=== PATIENT | male | born 1950 | race Caucasian/White ===

== ENCOUNTER → 2016-04-17 | Outpatient (CLI) | payer OTHER, MEDICARE, BC ==
[2016-04-17 10:39] LABS: Blood Urea Nitrogen 16 mg/dL (9-20); Non-African American GFR(MDRD) >60 (>60 ml/min/1.73 sqM)
--- NOTE | 2016-04-17 11:54 | CT ---
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 TECHNIQUE: Contiguous axial scanning of the chest, abdomen, and pelvis performed with IV Contrast, pa tient injected with 100 mL of Omnipaque 300. Delayed images through the kidneys were obtained. Graham l/sagittal reconstructions performed. CT DLP: 1949 mGycm Automated exposure control for dose reduction was used. FINDINGS: CHEST: Left anterior chest wall injection port with catheter tip at the caval atrial junction. Heart is normal size without pericardial effusion. Aorta is normal caliber with conventional arch vessel branching anatomy. No thoracic lymphadenopathy. Evaluation of the lungs show some chronic scarring at the left lung base without consolidation or ple ural effusion. Chronic pleural based thickening along the posterolateral left costophrenic angle with an adjacent surgical clip in the sulcus. ABDOMEN: Subtle subcentimeter hypodense lesion peripheral right liver lobe, axial image 55 appears to be uncha nged. However, a second subtle 1.4 cm hypodense lesion segment 6 right liver lobe axial image 58 may be lar jose eduardo. Portal venous system is patent. Redemonstrated pneumobilia with a metallic stent in place. Numerous surgical clips are present along the retroperitoneum extending down the left iliac chain and causes extensive artifacts limiting the evaluation. Within this limitation, the right adrenal gland, spleen with a anterior splenule, pancreas show no gr oss abnormality. Left adrenal gland not well seen. Redemonstrated 1.1 cm hypodense lesion anterior lower pole left kid rodney, probable cyst. Left kidney with an extrarenal pelvis. No dilated small bowel, free fluid, or free air. There is moderate stool burden without pericolonic i nflammatory change. There is new upper abdominal and retroperitoneal lymphadenopathy. - Peripancreatic lymph nodes measure 1.4 cm, axial image 61, just below the pancreatic body - 1.8 cm just medial to the uncinate process axial image 66, - Pericaval lymph node at 1.4 cm, axial image 78, - upper left para-aortic, 1.3 cm, axial image 62, - in addition to additional central mesenteric lymph nodes measure up to 1.1 cm, axial image 69 and 1 .1 cm axial image 73. -Additional subcentimeter mesenteric lymph nodes are present and are also new from prior exam. Pelvis: Mild circumferential bladder wall thickening. Similar prostatomegaly and 4.3 cm wide with heterogeneo us central enhancement which is unchanged. Rectum appears normal. No abnormal fluid collection in the pelvis or pelvic lymphadenopathy seen. Bones: Mild degenerative changes at the hips. Additional degenerative changes at the right SI joint and lowe r lumbar spine with a left L5 pars defect. Endplate spondylosis mid to lower thoracic spine. No osseo us destructive process. IMPRESSION: 1. FINDINGS COMPATIBLE WITH DISEASE RECURRENCE WITH NEW PERIPANCREATIC, RETROPERITONEAL, AND MESENTER IC LYMPHADENOPATHY MEASURING UP TO 1.8 CM, 1.4 CM, AND 1.1 CM, RESPECTIVELY. 2. A 1.4 CM HYPODENSE LESION INFERIOR RIGHT HEPATIC LOBE ALSO APPEARS NEW AND SUGGESTS METASTATIC DIS EASE. ANOTHER SUBCENTIMETER LESION IN THE RIGHT HEPATIC LOBE IS UNCHANGED. 3. METALLIC BILIARY STENT REMAINS IN PLACE WITH PNEUMOBILIA.
== END | disposition home or self-care (01) ==
LOC: RADPROMAIN 09:58
PROVIDERS: ATTEND Internal Medicine Hematology & Oncology
DX: K76.9 Liver disease, unspecified (principal)
CPT/HCPCS: 82565; 84520; 71260; 74177; Q9967

== ENCOUNTER 2016-05-23 18:19 | Inpatient (IN) | payer OTHER, MEDICARE, BC ==
[2016-05-23] MEDS ORDERED: SODIUM CHLORIDE 0.9% 1,000 ML IV STA ×2 (18:31)
--- NOTE | 2016-05-23 18:35 | ED ---
Fever HPI - General Chief Complaint: Fever Stated Complaint: FEVER, CANCER PATIENT Time Seen by Provider: 05/23/16 18:26 Source: patient, family, RN notes reviewed Mode of arrival: wheelchair Limitations: no limitations - History of Present Illness Initial Comments: This is a 65-year-old male with a history of testicular cancer history of sepsis in the past with a stent placement in the past who has sudden onset of chills shaking and a fever that got as high as 103.7 back. This started this afternoon around 4 PM. He is had a runny nose slight cough denies any earache sore throat dysuria hematuria his last chemotherapy was about 12 days ago. He has no other complaints at this time. No nausea no vomiting no diarrhea he does get bloating from his chemotherapy but denies any abdominal distention any at this time he does have some epigastric discomfort. MD Complaint: fever - Related Data Home Medications Medication Instructions Recorded Confirmed Docusate [Colace] 100 mg PO BID 11/19/15 05/23/16 Gabapentin [Gabapentin] 100 mg PO BID 11/19/15 05/23/16 Ibuprofen [Motrin] 800 mg PO Q8H PRN 11/19/15 05/23/16 Levothyroxine Sodium [Synthroid] 88 mcg PO DAILY 11/19/15 05/23/16 Loratadine [Claritin] 10 mg PO DAILY 11/19/15 05/23/16 Omeprazole 40 mg PO DAILY 11/19/15 05/23/16 Baclofen [Lioresal] 10 mg PO BID PRN 05/23/16 05/23/16 Calcium Carb/Vitamin D3/Vit K1 2 tab PO DAILY 05/23/16 05/23/16 [Viactiv Soft Chew Tablet] Fluticasone Nasal [place] [Flonase 2 spray EA NOSTRIL DAILY PRN 05/23/16 05/23/16 Nasal [place]] Lidocaine-Prilocaine Cream [[place]mla 1 applic TOPICAL DAILY PRN 05/23/16 05/23/16 Cream 2.5%/2.5%] Mag Carb/Al Hydrox/Alginic AC 10 ml PO QID PRN 05/23/16 05/23/16 [Gaviscon Liquid] Multivitamins, Thera [Multivitamin 1 tab PO DAILY 05/23/16 05/23/16 (formulary)] Prochlorperazine [Compazine] 10 mg PO Q6H PRN 05/23/16 05/23/16 Simethicone [Gas-X] 125 mg PO TID PRN 05/23/16 05/23/16 Allergies Allergy/AdvReac Type Severity Reaction Status Date / Time No Known Allergies Allergy Verified 05/23/16 18:24 Review of Systems ROS Statement: Those systems with pertinent positive or pertinent negative responses have been documented in the HPI. ROS Other: All systems not noted in ROS Statement are negative. Past Medical History Past Medical History: Cancer, Thyroid Disorder Additional Past Medical History / Comment(s): TESTICULAR CA 1979, pancreatic ca diagnosed February 2015 History of Any Multi-Drug Resistant Organisms: None Reported Past Surgical History: Hernia Repair, Tonsillectomy Additional Past Surgical History / Comment(s): 1979 LT TESTICLE AND LYMPHNODES REMOVED ALONG SPINE,RT ING HERNIA REPAIR X 3 WITH MESH,HEMORRHOIDECT, COLONOSCOPY titanum stent in pancreas Past Anesthesia/Blood Transfusion Reactions: No Reported Reaction Past Psychological History: No Psychological Hx Reported Smoking Status: Never smoker Past Alcohol Use History: None Reported Past Drug Use History: None Reported Additional Drug Use History / Comment(s): Patient states he has had a lifelong nonsmoker. 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 He lives at home with his and son. There is a cat in the home. No recent travel or service. - Past Family History Mother Family Medical History: Cancer Sister(s) Family Medical History: Cancer Brother(s) Family Medical History: Cancer Father Family Medical History: Cancer General Exam - General Exam Comments Initial Comments: This is a well-developed well-nourished awake alert oriented 3 male Limitations: no limitations General appearance: alert, in no apparent distress Head exam: Present: atraumatic, normocephalic, normal inspection Eye exam: Present: normal appearance, PERRL, EOMI. Absent: scleral icterus, conjunctival injection, periorbital swelling ENT exam: Present: normal exam, mucous membranes moist Neck exam: Present: normal inspection. Absent: tenderness, meningismus, lymphadenopathy Respiratory exam: Present: normal lung sounds bilaterally. Absent: respiratory distress, wheezes, rales, rhonchi, stridor Cardiovascular Exam: Present: normal rhythm, tachycardia, normal heart sounds. Absent: systolic murmur, diastolic murmur, rubs, gallop, clicks GI/Abdominal exam: Present: soft, normal bowel sounds. Absent: distended, tenderness, guarding, rebound, rigid Extremities exam: Present: normal inspection, full ROM, normal capillary refill. Absent: tenderness, pedal edema, joint swelling, calf tenderness Back exam: Present: normal inspection Neurological exam: Present: alert, oriented X3, CN II-XII intact Psychiatric exam: Present: normal affect, normal mood Skin exam: Present: warm, dry, intact, normal color. Absent: rash Course Vital Signs 05/23/16 05/23/16 18:20 20:34 Temperature 100.0 F H 101.8 F H Pulse Rate 134 H 111 H Respiratory 18 16 Rate Blood Pressure 139/77 115/68 O2 Sat by Pulse 97 96 Oximetry Medical Decision Making - Medical Decision Making Patient remains febrile but no other symptoms. I did discuss the case with oncology and with the hospitalist patient will be admitted started on cefepime continue with hydration. - Lab Data Result diagrams: 05/23/16 19:00 05/23/16 19:00 Lab Results 05/23/16 05/23/16 05/23/16 Range/Units 19:00 19:00 19:00 WBC 6.8 (3.8-10.6) k/uL RBC 3.71 L (4.30-5.90) m/uL Hgb 10.8 L (13.0-17.5) gm/dL Hct 33.1 L (39.0-53.0) % MCV 89.2 (80.0-100.0) fL MCH 29.2 (25.0-35.0) pg MCHC 32.7 (31.0-37.0) g/dL RDW 18.8 H (11.5-15.5) % Plt Count 214 (150-450) k/uL Neutrophils % 80 % Lymphocytes % 7 % Monocytes % 10 % Eosinophils % 1 % Basophils % 0 % Neutrophils # 5.4 (1.3-7.7) k/uL Lymphocytes # 0.4 L (1.0-4.8) k/uL Monocytes # 0.7 (0-1.0) k/uL Eosinophils # 0.0 (0-0.7) k/uL Basophils # 0.0 (0-0.2) k/uL Anisocytosis Slight Sodium 136 L (137-145) mmol/L Potassium 4.1 (3.5-5.1) mmol/L Chloride 102 (98-107) mmol/L Carbon Dioxide 23 (22-30) mmol/L Anion Gap 11 mmol/L BUN 18 (9-20) mg/dL Creatinine 0.91 (0.66-1.25) mg/dL Est GFR (MDRD) Af Amer >60 (>60 ml/min/1.73 sqM) Est GFR (MDRD) Non-Af >60 (>60 ml/min/1.73 sqM) Glucose 121 H (74-99) mg/dL Plasma Lactic Acid Paddy (0.7-2.0) mmol/L Calcium 9.0 (8.4-10.2) mg/dL Magnesium 1.6 (1.6-2.3) mg/dL Total Bilirubin 0.7 (0.2-1.3) mg/dL AST 155 H (17-59) U/L ALT 132 H (21-72) U/L Alkaline Phosphatase 131 H (38-126) U/L Total Protein 6.3 (6.3-8.2) g/dL Albumin 3.4 L (3.5-5.0) g/dL Amylase 61 (30-110) U/L Lipase 121 (23-300) U/L Urine Color Urine Appearance (Clear) Urine pH (5.0-8.0) Ur Specific [place] (1.001-1.035) Urine Protein (Negative) Urine Glucose (UA) (Negative) Urine Ketones (Negative) Urine Blood (Negative) Urine Nitrite (Negative) Urine Bilirubin (Negative) Urine Urobilinogen (<2.0) mg/dL Ur Leukocyte Esterase (Negative) Influenza Type A RNA Not Detected (Not Detectd) Influenza Type B (PCR) Not Detected (Not Detectd) 05/23/16 05/23/16 Range/Units 19:00 19:58 WBC (3.8-10.6) k/uL RBC (4.30-5.90) m/uL Hgb (13.0-17.5) gm/dL Hct (39.0-53.0) % MCV (80.0-100.0) fL MCH (25.0-35.0) pg MCHC (31.0-37.0) g/dL RDW (11.5-15.5) % Plt Count (150-450) k/uL Neutrophils % % Lymphocytes % % Monocytes % % Eosinophils % % Basophils % % Neutrophils # (1.3-7.7) k/uL Lymphocytes # (1.0-4.8) k/uL Monocytes # (0-1.0) k/uL Eosinophils # (0-0.7) k/uL Basophils # (0-0.2) k/uL Anisocytosis Sodium (137-145) mmol/L Potassium (3.5-5.1) mmol/L Chloride (98-107) mmol/L Carbon Dioxide (22-30) mmol/L Anion Gap mmol/L BUN (9-20) mg/dL Creatinine (0.66-1.25) mg/dL Est GFR (MDRD) Af Amer (>60 ml/min/1.73 sqM) Est GFR (MDRD) Non-Af (>60 ml/min/1.73 sqM) Glucose (74-99) mg/dL Plasma Lactic Acid Paddy 1.5 (0.7-2.0) mmol/L Calcium (8.4-10.2) mg/dL Magnesium (1.6-2.3) mg/dL Total Bilirubin (0.2-1.3) mg/dL AST (17-59) U/L ALT (21-72) U/L Alkaline Phosphatase (38-126) U/L Total Protein (6.3-8.2) g/dL Albumin (3.5-5.0) g/dL Amylase (30-110) U/L Lipase (23-300) U/L Urine Color Yellow Urine Appearance Clear (Clear) Urine pH 6.0 (5.0-8.0) Ur Specific [place] 1.011 (1.001-1.035) Urine Protein Negative (Negative) Urine Glucose (UA) Negative (Negative) Urine Ketones Negative (Negative) Urine Blood Negative (Negative) Urine Nitrite Negative (Negative) Urine Bilirubin Negative (Negative) Urine Urobilinogen <2.0 (<2.0) mg/dL Ur Leukocyte Esterase Negative (Negative) Influenza Type A RNA (Not Detectd) Influenza Type B (PCR) (Not Detectd) - EKG Data -: EKG Interpreted by Wy EKG shows normal: sinus rhythm (Sinus tachycardia rate 121 MA interval 146 QRS duration 84 daily since QTC of 300/426 moderate voltage criteria for LVH no acute ST-T wave changes) - Radiology Data Radiology results: report reviewed (I did review the x-ray report no acute findings.), image reviewed Disposition Clinical Impression: Fever, Sinusitis, Status post chemotherapy, time since less than 4 weeks Disposition: ADMITTED IP TO THIS HOSP Condition: Stable
[2016-05-23 19:20] LABS: ALT 132 U/L (21-72); AST 155 U/L (17-59); Alkaline Phosphatase 131 U/L (38-126); Amylase 61 U/L (30-110); Anion Gap 11 mmol/L; Blood Urea Nitrogen 18 mg/dL (9-20); Carbon Dioxide 23 mmol/L (22-30); Chloride 102 mmol/L (98-107); Glucose 121 mg/dL (74-99); Magnesium 1.6 mg/dL (1.6-2.3); Non-African American GFR(MDRD) >60 (>60 ml/min/1.73 sqM); Potassium 4.1 mmol/L (3.5-5.1); Sodium 136 mmol/L (137-145); Total Bilirubin 0.7 mg/dL (0.2-1.3); Total Protein 6.3 g/dL (6.3-8.2)
[2016-05-23 19:21] LABS: Anisocytosis Slight; Basophils % (A) 0 %; CHCM 32.7; Eosinophils % (A) 1 %; HCT 33.1 % (39.0-53.0); HDW 2.59; HGB 10.8 gm/dL (13.0-17.5); Luc % (Auto) 3; Lymphocytes # (A) 0.4 k/uL (1.0-4.8); Lymphocytes % (A) 7 %; MCH 29.2 pg (25.0-35.0); MCHC 32.7 g/dL (31.0-37.0); MCV 89.2 fL (80.0-100.0); Mean Platelet Volume 6.4; Monocytes # (A) 0.7 k/uL (0-1.0); Monocytes % (A) 10 %; Neutrophils # (A) 5.4 k/uL (1.3-7.7); Neutrophils % (A) 80 %; RBC 3.71 m/uL (4.30-5.90); RDW 18.8 % (11.5-15.5); WBC 6.8 k/uL (3.8-10.6); WBC (Perox) 6.89
--- NOTE | 2016-05-23 19:28 | XR ---
EXAMINATION TYPE: XR abdomen 1V DATE OF EXAM: 05/23/2016 7:19 PM COMPARISON: 04/17/2016. HISTORY: Cough, fever, and constipation. History of stage IV pancreatic cancer. TECHNIQUE: Single upright abdominal radiograph was obtained. FINDINGS: There is a moderate colonic stool burden in nondistended bowel in this patient with a histo ry of constipation. Numerous surgical clips overlie the central and left paracentral abdomen. Biliary stent has been placed in the interim. Previously described pneumobilia on the prior CT is not visual ized on this examination. Osseous structures are of normal mineralization with degenerative changes o f the lumbosacral spine. IMPRESSION: 1. Moderate colonic stool burden in this patient with a history of constipation. 2. New biliary stent, placed in the interim with other stable postsurgical changes.
--- NOTE | 2016-05-23 19:29 | XR ---
EXAMINATION TYPE: XR chest 2V DATE OF EXAM: 05/23/2016 7:19 PM COMPARISON: 11/19/2015 HISTORY: Cough and fever. TECHNIQUE: Frontal and lateral views of the chest are obtained. FINDINGS: Left hemidiaphragm elevation is similar in comparison to the prior exam. Left Mediport ter minates in the superior vena cava/right atrial junction. Numerous surgical clips are partially visual ized over the central and left paracentral abdomen. There is no focal air space opacity, pleural effu brittani, or pneumothorax seen. The cardiac silhouette size is within normal limits. The osseous struc tures are intact. IMPRESSION: 1. No focal consolidation. 2. Chronic left hemidiaphragm elevation. 3. Left Mediport is unchanged with its distal tip in the superior vena cava/right atrial junction, pr operly placed.
[2016-05-23 20:26] LABS: Appearance,Urine Clear (Clear); Bilirubin,Urine Negative (Negative); Glucose,Urine (UA) Negative (Negative); Ketones,Urine Negative (Negative); Leukocyte Esterase,Urine Negative (Negative); Nitrite,Urine Negative (Negative); Protein,Urine Negative (Negative); Specific Gravity,Urine 1.011 (1.001-1.035); UA Billing (MACRO vs. MICRO) CHEM; Urobilinogen,Urine <2.0 mg/dL (<2.0)
[2016-05-23] MEDS ORDERED: ACETAMINOPHEN TAB 325 MG TAB PO PRN (21:44)
[2016-05-23] MEDS ORDERED: NALOXONE 0.4 MG/ML 1 ML VIAL IV PRN (21:44)
[2016-05-23] MEDS ORDERED: CEFEPIME 2 GM in SODIUM CHLORIDE 0.9% 50 ML IVPB STA (21:46)
[2016-05-23] MEDS ORDERED: BACLOFEN 10 MG TAB PO PRN (21:47)
[2016-05-23] MEDS ORDERED: ALUMINUM HYDROXIDE PO PRN (21:47)
[2016-05-23] MEDS ORDERED: IBUPROFEN 800 MG TAB PO PRN (21:47)
[2016-05-23] MEDS ORDERED: PROCHLORPERAZINE 10 MG TAB PO PRN (21:47)
[2016-05-23] MEDS ORDERED: FLUTICASONE 50MCG/SPRAY NASAL 16GM EA NOSTRIL PRN (21:47)
[2016-05-23] MEDS ORDERED: LIDOCAINE-PRILOCAINE 2.5-2.5% CREAM 5 GM TUBE TOPICAL PRN (21:47)
[2016-05-23] MEDS ORDERED: MAGNESIUM CARBONATE PO PRN (21:47)
[2016-05-23] MEDS ORDERED: ALGINIC ACID PO PRN (21:47)
[2016-05-23] MEDS ORDERED: SIMETHICONE 80 MG CHEWABLE PO PRN (21:47)
[2016-05-23] MEDS ORDERED: ACETAMINOPHEN TAB 500 MG TAB PO STA (21:50)
[2016-05-23 22:58] VITALS: BMI 31.3
[2016-05-24] MEDS ORDERED: CEFEPIME 2 GM in SODIUM CHLORIDE 0.9% 50 ML IVPB SCH (08:00)
[2016-05-24] MEDS ORDERED: MULTIVITAMINS, THERA 1 EACH TAB PO SCH (09:00)
[2016-05-24] MEDS ORDERED: LEVOTHYROXINE 88 MCG TAB PO SCH (09:00)
[2016-05-24] MEDS ORDERED: LEVOTHYROXINE 88 MCG TAB PO ONE (09:15)
[2016-05-24] MEDS: DOCUSATE 100 MG CAP PO SCH ×2 (09:20→21:07)
[2016-05-24] MEDS: GABAPENTIN 100 MG CAP PO SCH ×2 (09:20→21:07)
[2016-05-24] MEDS: PANTOPRAZOLE 40 MG TABLET PO SCH (09:20)
[2016-05-24] MEDS: LORATADINE 10 MG TAB PO SCH (09:20)
[2016-05-24] MEDS: MULTIVITAMINS, THERA 1 EACH TAB PO SCH (12:40)
[2016-05-24] MEDS ORDERED: SODIUM CHLORIDE 0.9% 1,000 ML IV STA (14:22)
[2016-05-24] MEDS: PIPERACILLIN-TAZOBACTAM 3.375 GM in DEXTROSE/WATER 1 50ML.BAG IVPB SCH (18:16)
--- NOTE | 2016-05-24 18:29 | HP ---
DATE OF ADMISSION: Patient is a 65-year-old gentleman with history of testicular cancer and patient has a biliary stent in the past. Recently replaced in the month of January with history of biliary sepsis in the recent past. Came in with complaints of fever, which started about 2 days ago. The patient denied any cough, runny nose. Patient has greenish drainage from the nose and patient has sinus-like symptoms patient's ear was examined in the ER and patient apparently has fluid in the left middle ear and patient denied any photophobia, nausea, vomiting. Patient was complaining a little bit of headache from his sinusitis. Patient denied any dysuria. UA is essentially within normal limits. Chest x-ray did not show any pneumonic process and source of infection is unknown at this point of time. Patient's liver enzymes are minimally elevated. I will obtain an ultrasound of the liver and gallbladder because of intra-abdominal source of sepsis, particularly considering the biliary ( ) need to be ruled out and also get Infectious Disease to evaluate the patient. I will repeat CBC and comprehensive metabolic profile for tomorrow. Make sure liver enzymes are not going up. REVIEW OF SYSTEMS: GENERAL: As described in HPI. Patient denied any significant abdominal pain. HEENT: No recent visual problems or hearing problems. Denied any sore throat. CARDIOVASCULAR: No chest pain, orthopnea, PND, no palpitations, no syncope. PULMONARY: No shortness of breath, no cough, no hemoptysis. GASTROINTESTINAL: No diarrhea, no nausea, no vomiting, no abdominal pain. Normoactive bowel sounds. NEUROLOGICAL: No headaches, no weakness, no numbness. HEMATOLOGICAL: Denies any bleeding or petechiae. GENITOURINARY: Denies any burning micturition, frequency, or urgency. MUSCULOSKELETAL/RHEUMATOLOGICAL: Denies any joint pain, swelling, or any muscle pain. ENDOCRINE: Denies any polyuria or polydipsia. The rest of the 14 point review of systems is negative. Home medications include: 1. ( ). 2. Gabapentin. 3. Ibuprofen. 4. Levothyroxine. 5. Loratadine. 6. Omeprazole. 7. Baclofen. 8. Fluticasone. 9. Lidocaine. 10. Magnesium carbonate. 11. Multivitamin. 12. Compazine. 13. Simethicone. ALLERGIES: No known drug allergies. Patient has testicular cancer, pancreatic cancer, recently received chemotherapy. Patient is not neutropenic at this point of time, hypothyroidism. Patient denied any smoking, alcohol abuse or any drug abuse. FAMILY HISTORY: Significant for multiple family members including mother, brother, sister, father, all of them having some kind of cancer. PHYSICAL EXAMINATION: Temperature 98.8, pulse of 89, respiratory rate of 16, blood pressure is 125/76, saturating at 97% on room air. GENERAL: The patient is alert and oriented x3, not in any acute distress. Well developed, well nourished. HEENT: Pupils are round and equally reacting to light. EOMI. No scleral icterus. No conjunctival pallor. Normocephalic, atraumatic. No pharyngeal erythema. No thyromegaly. CARDIOVASCULAR: S1 and S2 present. No murmurs, rubs, or gallops. PULMONARY: Chest is clear to auscultation, no wheezing or crackles. ABDOMEN: Soft, nontender, nondistended, normoactive bowel sounds. No palpable organomegaly. MUSCULOSKELETAL: No joint swelling or deformity. EXTREMITIES: No cyanosis, clubbing, or pedal edema. NEUROLOGICAL: Gross neurological examination did not reveal any focal deficits. SKIN: No rashes. LABORATORY DATA: CBC, CMP are abnormal for mildly elevated liver enzymes of AST and ALT of 155 and 132, influenza DNA PCR is negative. ASSESSMENT AND PLAN: 1. Possible sepsis or systemic inflammatory response syndrome; unsure of the exact source of sepsis. Patient will be empirically started on Zosyn and I will consult Infectious Disease. Dr. Lynn is probably going to follow the patient as well. 2. History of pancreatic cancer recently with chemotherapy. 3. Hypothyroidism. 4. Gastroesophageal reflux disease. 5. Peripheral neuropathy. For above mentioned clinical problems, I will go ahead and continue his home medications. Will continue to follow the cultures. As mentioned above, source of sepsis at this time is unclear.
--- NOTE | 2016-05-24 20:06 | CONS ---
DATE OF CONSULTATION: 05/24/2016. REASON FOR CONSULTATION: Fever. HISTORY OF PRESENT ILLNESS: The patient is 65 -year-old male with past medical history significant for pancreatic head tumor in a patient who did have a previous pancreatic head stent placement multiple times, the last one was placed back in January 2016. The patient apparently has no problem since then. The patient did have a previous episode of sepsis secondary to the ascending cholangitis and the last admission was in October 2015. Patient did mention that he has been off chemotherapy for more than 5 months now. However, the patient did have a repeat portable body imaging which did show some increase in the size of pancreatic bed lymph node about less than a centimeter. It was decided the patient should be given chemo and has received new chemo 2 weeks times two doses with the last one has been about 2 weeks ago. The patient was warned that he may have some flushing with this chemo and he did have flushing off and on for the last 2 weeks. Wednesday morning when he woke up, he did have some flushing in the facial area, but no high-grade fever. Yesterday after he woke up from a nap in the afternoon the patient did have a fever of 103 degrees Fahrenheit. The did call Dr. Lynn who instructed the patient to go to the [facility] ER. The patient has been evaluated by the ER physician where the patient did have a chest x-ray that was no focal consolidation, chronic left hemidiaphragm elevation. He also had an abdominal x-ray which shows moderate colonized stool burden new biliary stent. Patient did have a normal white count of 6.8. His UA has been negative. Influenza A and B PCR negative. He was started on Cefepime which was switched over to Zosyn. Today I was asked to see the patient for examination because of his fever. The patient Mediport was last accessed 2 weeks ago and has no symptoms referable to the same. The patient has been complaining of some upper URI symptoms and some sinus congestion, but it was only for one day and those symptoms have resolved. REVIEW OF SYSTEMS: CONSTITUTIONAL: Positive for weakness and fever. EYES: No complaint. ENT: As per HPI. RESPIRATORY: No complaint. CARDIOVASCULAR: No complaint. GENITOURINARY: No complaint. GASTROINTESTINAL: No complaint. MUSCULOSKELETAL: No complaint. INTEGUMENTARY: No complaint. PSYCHOLOGICAL: No complaint. ENDOCRINE: No complaint. NEUROLOGIC: No complaint. 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 The patient has a history of hypothyroidism, sepsis, secondary to ascending cholangitis. PAST SURGICAL HISTORY: Tonsillectomy and hernia repair, biliary stent placement, hemorrhoidectomy and colonoscopy, left testicular lymph node removed. SOCIAL HISTORY: . No history of smoking, drinking, or any drug use. FAMILY HISTORY: history of cancer in multiple family members. ALLERGIES: No known drug allergies. Medications currently include the patient is on: 1. Tylenol. 2. Baclofen. 3. Colace. 4. Flonase. 5. Neurontin. 6. Motrin. 7. Synthroid. 8. Claritin. 9. Theragran. 10. Narcan. 11. Protonix. 12. Piptazobactam. 13. Compazine. On examination, blood pressure is 124/76 with pulse of 89, temperature 98.8. He is 97% on room air. T-max is 101.8. General description is an elderly male lying in bed in no distress. No tachypnea or accessory muscle of respiration use. HEENT examination shows pallor. There is no scleral icterus. Oral mucous membranes dry. NECK: Trachea central. There is no thyromegaly. LUNGS: Unlabored breathing. Clear to auscultation anteriorly. No wheeze or crackles. HEART: S1, S2. Regular rate and rhythm. ABDOMEN: Soft, no tenderness. No guarding or rigidity. EXTREMITIES: No edema of feet. SKIN EXAMINATION: No rash or mass palpable. Mediport site on the left chest wall looks clean. NEUROLOGICAL: The patient is awake, oriented x3. Mood and affect normal. LABS: Hemoglobin is 10.2, white count 6.8 with a BUN of 18, creatinine 0.91, bilirubin was 0.7, AST 155, AST 132. alkaline phosphatase 131, UA has been negative. Influenza A and B PCR has been negative. DIAGNOSTIC IMPRESSION AND PLAN: Patient with fever in a patient who did have history of pancreatic head tumor with history of biliary sepsis and infection and blocked pancreatic head stent in a patient who did have slightly elevated liver enzymes , the likely source is more likely abdominal. Possible ascending cholangitis, biliary stent infection versus Mediport infection, though not less likely. The patient has no other clinical focus of infection. His abdomen was soft on clinical examination, chest x-ray was negative. Urine is negative. No evidence of any cellulitis. The likely organism did cover empirically with enteric gram-negative pathogen. The patient's fever responding to the Cefepime now being switched to Zosyn. PLAN: 1. Await the CT of abdomen and pelvis that has been ordered for tomorrow. 2. Will wait for the blood cultures to be finalized. 3. Patient will be continued on Zosyn 4.5 q.8 should provide adequate coverage for abdominal pathogen. 4. Will follow up on the clinical condition and cultures to further adjust the medication if needed. Thank you for this consultation. We will follow this patient along with you. RIKA
--- NOTE | 2016-05-24 22:12 | P.PN ---
Progress Note - Text Consult dictated Impression: 1- Fever of 103 at home with chills > likely 2nd to an infectious process, doubt tumor fever or fever 2nd to Chemotherapy 2- Advanced metastatic Pancreatic Ca to liver, on Onivyde ( Liposomal Irinotecan ) infusion. Rec: 1- Agree with antibiotics 2- Cultures pending 3- ID on case 4- Delay Cycle#3 of Chemotherapy scheduled to start 05/25/16. D/W patient & Will follow.
[2016-05-25] MEDS: PIPERACILLIN-TAZOBACTAM 3.375 GM in DEXTROSE/WATER 1 50ML.BAG IVPB SCH ×4 (01:23→23:10)
[2016-05-25 07:33] LABS: Anisocytosis Slight; CHCM 31.8; HDW 2.66; HGB 10.2 gm/dL (13.0-17.5); Hypochromasia Slight; MCH 29.2 pg (25.0-35.0); MCHC 31.9 g/dL (31.0-37.0); MCV 91.6 fL (80.0-100.0); Mean Platelet Volume 6.6; WBC 3.8 k/uL (3.8-10.6)
[2016-05-25 07:53] LABS: ALT 93 U/L (21-72); AST 46 U/L (17-59); Alkaline Phosphatase 105 U/L (38-126); Anion Gap 9 mmol/L; Blood Urea Nitrogen 12 mg/dL (9-20); Carbon Dioxide 26 mmol/L (22-30); Chloride 104 mmol/L (98-107); Glucose 94 mg/dL (74-99); Non-African American GFR(MDRD) >60 (>60 ml/min/1.73 sqM); Potassium 4.3 mmol/L (3.5-5.1); Sodium 139 mmol/L (137-145); Total Bilirubin 0.7 mg/dL (0.2-1.3)
[2016-05-25] MEDS: DOCUSATE 100 MG CAP PO SCH ×2 (08:21→20:09)
[2016-05-25] MEDS: LEVOTHYROXINE 88 MCG TAB PO SCH (08:21)
[2016-05-25] MEDS: LORATADINE 10 MG TAB PO SCH (08:22)
[2016-05-25] MEDS: GABAPENTIN 100 MG CAP PO SCH ×2 (08:22→20:09)
[2016-05-25] MEDS: PANTOPRAZOLE 40 MG TABLET PO SCH (08:22)
--- NOTE | 2016-05-25 08:31 | US ---
EXAMINATION TYPE: US gallbladder DATE OF EXAM: 05/25/2016 8:04 AM COMPARISON: Previous study dated 11/21/2015 CLINICAL HISTORY: Possible biliary sepsis. febrile illness, s/p chemotherapy EXAM MEASUREMENTS: Liver Length: 15.7 cm Gallbladder Wall: cm CBD: 0.5 cm Right Kidney: 10.8 x 5.2 x 5.5 cm Pancreas: Obscured by bowel gas Liver: granulomatous Gallbladder: No stones seen, thickened wall Evidence for sonographic Cunha's sign: CBD: wnl Right Kidney: No hydronephrosis or masses seen Thickened gb wall with no stones identified; extremely granulomatous liver IMPRESSION: 1. FAILURE TO VISUALIZE THE PANCREAS. 2. OLD GRANULOMATOUS DISEASE WITHIN THE LIVER. 3. THICKENED GALLBLADDER WALL. COULD NOT EXCLUDE ACALCULOUS CHOLECYSTITIS.
--- NOTE | 2016-05-25 08:35 | CONS ---
DATE OF CONSULTATION: 05/24/2016 CHIEF COMPLAINT: Fever and chills. HISTORY OF PRESENT ILLNESS: Mr. Blankenship is a 65-year-old gentleman known to us with locally advanced and more recently metastatic pancreatic carcinoma. The patient has received prior gemcitabine and Abraxane chemotherapy as well as FOLFOX combination chemotherapy and more recently upon progression, was started on third line chemotherapy with Onivyde which he has tolerated well. Two cycles were infused so far. He was supposed to start the third infusion on 05/25/2016. I was contacted by the patient's last night reporting Jasson to feel weak, having shaking chills and initial fever of 100, then increased to 103. The patient was directed to the emergency room and decision was made to admit the patient for further observation. He was not found to be neutropenic at time of hospitalization. The patient was seen by Dr. Gallo later this afternoon and he was started antibiotic change from cefepime to Zosyn. He denies any chest pain, shortness of breath, sore throat, cough, earache or any runny nose. No reports of nausea, vomiting, diarrhea, or constipation. No polyuria, dysuria or gross hematuria. No neck stiffness. No musculoskeletal discomfort or edema in upper or lower extremities. PAST MEDICAL HISTORY: 1. Metastatic pancreatic carcinoma with diagnostic and therapeutic circumstances as indicated above. 2. Obstructive jaundice. 3. Hypothyroidism. 4. Degenerative joint disease. Past surgical history is common bile duct stent placement. SOCIAL HISTORY: The patient denies any smoking or excessive use of alcohol. Resides with his , remains fully active. REVIEW OF SYSTEMS: Fever and chills as stated above, otherwise unremarkable. On examination, the patient appeared alert and oriented. Skin is warm and dry. Hair distribution within normal for age and gender. He is not jaundiced. Blood pressure was 124/76, pulse is 89 and regular, respiratory rate was 16, not labored, temperature was 98.8, highest temperature is 100.1 since hospitalization. There are no pathologic, cervical, supraclavicular, infraclavicular or axillary lymphadenopathy. Trachea was in midline. Chest was clear with good air exchange bilaterally. Heart sounds were normal, S1 and S2. There was no S3, rubs or murmurs auscultated. Abdomen was soft. The liver and the spleen were not clinically palpable. There were no masses, tenderness, or inguinal lymphadenopathy. Extremities appear unremarkable. Range of motion was within normal. No deformity seen. Neurologic examination showed no focal motor or sensory deficit. Cranial nerves 2 through 12 are unremarkable. LABORATORY STUDIES: Showed WBC of 6.8 with a neutrophil of 5.4, hemoglobin of 10.8 and a platelet count 214,000. Chemistry studies showed elevated ALT and AST and alkaline phosphatase consistent with known metastatic disease to the liver. Total bilirubin was normal at 0.7. IMPRESSION: 1. Fever and chills of unknown etiology in this patient who is immunosuppressed host, I am suspecting an infectious process; however, no clinical signs or symptom of infection at the present time. 2. Tumor fever and fever due to chemotherapy while could not be totally ruled out, felt to be highly improbable. 3. Advanced metastatic pancreatic carcinoma with diagnostic and therapeutic circumstance indicated above. RECOMMENDATION: 1. Agree with antibiotic, he was started on cefepime and changed to Zosyn by Dr. Gallo. 2. Infectious Disease consultation on the case. 3. Cultures were obtained and pending. 4. Cycle #3 of chemotherapy scheduled to be started on May 25, will be held until recovery from the current morbidity. I discussed assessment and recommendation with the patient and his , answered all questions and concerns. Will follow the patient along with you.
[2016-05-25] MEDS: MULTIVITAMINS, THERA 1 EACH TAB PO SCH (11:51)
[2016-05-26 02:16] VITALS: RESP 16
[2016-05-26] MEDS: LEVOTHYROXINE 88 MCG TAB PO SCH (05:53)
[2016-05-26] MEDS: LORATADINE 10 MG TAB PO SCH (06:57)
[2016-05-26] MEDS: PANTOPRAZOLE 40 MG TABLET PO SCH (06:57)
[2016-05-26] MEDS: DOCUSATE 100 MG CAP PO SCH (06:57)
[2016-05-26] MEDS: GABAPENTIN 100 MG CAP PO SCH (06:57)
--- NOTE | 2016-05-26 08:10 | PN ---
The patient is a 65-year-old admitted with ( ) pancreatic cancer recently received chemotherapy is admitted with fever. Source of sepsis is not clear. Intraabdominal source is being considered, which is ascending cholangitis, although there is no signs or symptoms of that. Patient is clinically doing well. No significant abnormality on the ultrasound. Liver enzymes are coming down. Patient is on broad-spectrum antibiotics in the form of Zosyn. The other sources that are being considered are ( ) infection. All the cultures are pending. We will await for one more day. If patient is afebrile, the patient will be discharged on empiric antibiotics as recommended by Infectious Disease. Since yesterday morning, the patient does not have any fevers after starting on antibiotics, although source is not clear at this time. REVIEW OF SYSTEMS: CARDIOVASCULAR: No chest pain, no orthopnea, no PND, no palpitations. PULMONARY: Denied any shortness of breath. No cough or hemoptysis. GASTROINTESTINAL: No diarrhea, nausea or vomiting. No abdominal pain. Normoactive bowel sounds. NEUROLOGIC: No headaches, no weakness, no numbness. Medications were reviewed. PHYSICAL EXAMINATION: VITAL SIGNS: Temperature 97.5, pulse of 75, respiratory 16, blood pressure 108/73, saturating at 97% on room. GENERAL: The patient is alert and oriented x3, not in any acute distress. Well developed, well nourished. HEENT: Pupils are round and equally reacting to light. EOMI. No scleral icterus. No conjunctival pallor. Normocephalic, atraumatic. No pharyngeal erythema. No thyromegaly. CARDIOVASCULAR: S1 and S2 present. No murmurs, rubs, or gallops. PULMONARY: Chest is clear to auscultation, no wheezing or crackles. ABDOMEN: Soft, nontender, nondistended, normoactive bowel sounds. No palpable organomegaly. MUSCULOSKELETAL: No joint swelling or deformity. EXTREMITIES: No cyanosis, clubbing, or pedal edema. NEUROLOGICAL: Gross neurological examination did not reveal any focal deficits. SKIN: No rashes. FINAL DIAGNOSES: 1. Sepsis, source not clear with the possibility of above mentioned sources although ascending cholangitis possibility is low. U/S significant for acalculous cholecystitis. Continue with Zosyn at this point of time, awaiting cultures. 2. History of pancreatic cancer, receiving chemotherapy that may be contributing to his fevers too. 3. Hypothyroidism. 4. Gastroesophageal reflux disease. 5. Peripheral neuropathy. For above-mentioned chronic medical problems, I will go ahead and continue his home medications. RIKA
--- NOTE | 2016-05-26 08:56 | PN ---
DATE OF SERVICE: 05/25/2016 Reason for followup is fever. INTERVAL HISTORY: The patient remains to be afebrile. Has been breathing comfortably. Patient denies having any chest pain or shortness of breath or cough. No significant abdominal pain. No nausea, vomiting or any diarrhea. On examination, blood pressure 108/73 with a pulse of 75, temperature is 97.5, he is 97% on room air. General description is an elderly male, lying in bed in no distress. HEENT: Pallor. No scleral icterus. Oral mucous membranes dry. NECK: Trachea central. There is no thyromegaly. LUNGS: Unlabored breathing. Clear to auscultation anteriorly. HEART: S1, S2 regular rate and rhythm. ABDOMEN: Soft, no tenderness. EXTREMITIES: No edema of the feet. LABS: Hemoglobin is 10.2, white count of 3.8 with a BUN of 12, creatinine 0.90. Patient did have overall improvement in his liver enzymes. His urine has been negative. Blood culture so far negative. The patient did have an ultrasound of the gallbladder which has a possibility of acalculous cholecystitis but the pancreas was not visualized. DIAGNOSTIC IMPRESSION AND PLAN: Patient admitted to the hospital with fever. Source is likely abdominal and patient did have a history of pancreatic head cancer, and previous history of biliary sepsis, now with ultrasound suspicious for acalculous cholecystitis. His liver enzyme has improved. May have been from surgical evaluation. Will continue to follow his cultures. Discussed with the primary team about doing a CT of the abdomen and pelvis to better visualize the pancreatic head. Continue with the Zosyn to which his fever has responded. Continue supportive care.
[2016-05-26] MEDS: PIPERACILLIN-TAZOBACTAM 3.375 GM in DEXTROSE/WATER 1 50ML.BAG IVPB SCH ×2 (09:59→15:40)
[2016-05-26] MEDS ORDERED: IOHEXOL 350 MG/ML 25 ML BOTTLE (ORAL USE) PO PRN (11:08)
[2016-05-26] MEDS: MULTIVITAMINS, THERA 1 EACH TAB PO SCH (11:36)
--- NOTE | 2016-05-26 14:27 | P.GSCN ---
History of Present Illness Consult date: 05/26/16 Reason for Consult: Evaluate gallbladder History of present illness: The patient is a 65-year-old gentleman with a history of pancreatic cancer with stent placement most recently in October 2015. The cancer was felt to be unresectable at that time he had developed sepsis and required stent replacement. The patient was doing well however in March on a routine scan was noted to have some increased adenopathy and was started on new course of chemotherapy. The patient recently was noted to have shaking chills and a fever to 103.7 at home. He presented to the emergency department for evaluation. The patient in the course of his evaluation underwent an ultrasound which revealed 5 visualize the pancreas, old granulomatous disease within the liver, and thickened gallbladder wall could not exclude acalculous cholecystitis. The patient has no abdominal pain. The patient is tolerating diet without difficulty. The patient's white blood cell count is 3.8. The patient's AST was 46, ALP 93, total total bili 0.7. The patient's alkaline phosphatase is 105. The patient's lipase and amylase were 121 and 61. The patient had a UA which was negative. Patient is negative for influenza type A or B. The patient denies any fever or chills for approximately 48 hours. Past surgical history: 1. Mediport placement 2. Biliary stents 2 3. Hemorrhoids and colonoscopy 4. Hernia repair 2 5. Testicle removed and the aortic node dissection Past medical history: 1. Pancreatic cancer 2. Testicular cancer 3. Heartburn thyroidism 4. Neuropathy ALLERGIES: Negative Social history: Patient does not smoke or use alcohol Review of systems: HEENT sinus infections at times Lungs: Negative Heart: Negative GI: Pancreatic cancer : Testicular cancer Review of Systems - Constitutional Reports as per HPI, Reports chills, Reports fever - Cardiovascular Reports as per HPI - Respiratory Reports as per HPI - Gastrointestinal Gastrointestinal Comment(s): Pancreatic cancer Reports as per HPI - Genitourinary Genitourinary Comment(s): Testicular cancer Reports as per HPI Past Medical History Past Medical History: Cancer, Thyroid Disorder Additional Past Medical History / Comment(s): TESTICULAR CA 1979, pancreatic ca diagnosed February 2015 History of Any Multi-Drug Resistant Organisms: None Reported Past Surgical History: Hernia Repair, Tonsillectomy Additional Past Surgical History / Comment(s): 1979 LT TESTICLE AND LYMPHNODES REMOVED ALONG SPINE,RT ING HERNIA REPAIR X 3 WITH MESH,HEMORRHOIDECT, COLONOSCOPY titanum stent in pancreas, smart port. Past Anesthesia/Blood Transfusion Reactions: No Reported Reaction Past Psychological History: No Psychological Hx Reported Smoking Status: Never smoker Past Alcohol Use History: None Reported Past Drug Use History: None Reported Additional Drug Use History / Comment(s): Patient states he has had a lifelong nonsmoker. 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 He lives at home with his and son. There is a cat in the home. No recent travel or service. - Past Family History Mother Family Medical History: Cancer Sister(s) Family Medical History: Cancer Brother(s) Family Medical History: Cancer Father Family Medical History: Cancer Medications and Allergies Home Medications Medication Instructions Recorded Confirmed Type Docusate [Colace] 100 mg PO BID 11/19/15 05/23/16 History Gabapentin [Gabapentin] 100 mg PO BID 11/19/15 05/23/16 History Ibuprofen [Motrin] 800 mg PO Q8H PRN 11/19/15 05/23/16 History Levothyroxine Sodium [Synthroid] 88 mcg PO DAILY 11/19/15 05/23/16 History Loratadine [Claritin] 10 mg PO DAILY 11/19/15 05/23/16 History Omeprazole 40 mg PO DAILY 11/19/15 05/23/16 History Baclofen [Lioresal] 10 mg PO BID PRN 05/23/16 05/23/16 History Calcium Carb/Vitamin D3/Vit K1 2 tab PO DAILY 05/23/16 05/23/16 History [Viactiv Soft Chew Tablet] Fluticasone Nasal [place] [Flonase 2 spray EA NOSTRIL DAILY PRN 05/23/16 05/23/16 History Nasal [place]] Lidocaine-Prilocaine Cream [Emla 1 applic TOPICAL DAILY PRN 05/23/16 05/23/16 History Cream 2.5%/2.5%] Mag Carb/Al Hydrox/Alginic AC 10 ml PO QID PRN 05/23/16 05/23/16 History [Gaviscon Liquid] Multivitamins, Thera [Multivitamin 1 tab PO DAILY 05/23/16 05/23/16 History (formulary)] Prochlorperazine [Compazine] 10 mg PO Q6H PRN 05/23/16 05/23/16 History Simethicone [Gas-X] 125 mg PO TID PRN 05/23/16 05/23/16 History Allergies Allergy/AdvReac Type Severity Reaction Status Date / Time No Known Allergies Allergy Verified 05/23/16 18:24 Surgical - Exam Vital Signs Temp Pulse Resp BP Pulse Ox 100.0 F H 134 H 18 139/77 97 05/23/16 18:20 05/23/16 18:20 05/23/16 18:20 05/23/16 18:20 05/23/16 18:20 - General well developed, no distress - Eyes normal ocular movement - ENT normal pinna, normal nares, no hearing loss - Neck trachea midline, no venous distension - Respiratory normal expansion, normal respiratory effort, clear to auscultation - Cardiovascular Rhythm: regular Heart Sounds: normal: S1, S2 - Abdomen Well-healed scar prior surgery No guarding or rebound Abdomen: soft, non tender, bowel sounds - Integumentary He has abdominal scar from prior surgery - Psychiatric oriented to time, oriented to person, oriented to place, speech is normal Results - Labs 05/25/16 07:15 05/25/16 07:15 Assessment and Plan Plan: Impression/plan: 1. 65-year-old gentleman admitted with metastatic pancreatic cancer on third line chemotherapy 2. Fever and shaking chills which have resolved 3. Tumor fever/pain related to chemotherapy felt to be unlikely 4. Patient does not have an acute surgical abdomen/ultrasound of the gallbladder report reviewed Plan: 1. will follow 2. Review computed tomography scan 3. Patient does not have an acute surgical abdomen at this time
--- NOTE | 2016-05-26 14:43 | CT ---
EXAMINATION TYPE: CT abdomen pelvis wo con DATE OF EXAM: 05/26/2016 1:56 PM COMPARISON: 04/17/2016 HISTORY: 65-year-old male abdominal abscess, fever, and history of pancreatic and testicular cancer. Chemotherapy 2 weeks ago. Fever post chemo [address] DLP: 637.9 mGycm. Automated exposure control for dose reduction was used. TECHNIQUE: Contiguous axial scanning of the abdomen and pelvis without IV contrast. Coronal and sagit elvin reconstructions performed. FINDINGS: Heart is normal size without pericardial effusion. Some pleural parenchymal scarring at the left base is unchanged. No pleural effusion. Stable metallic density at the posterior left costophrenic sulcus probably a migrated surgical clip. Liver shows pneumobilia with a metallic biliary stent in place. Assessment for small subtle hepatic l esions is limited without IV contrast. There is additional anterior nondependent within the gallbladder fundus. Gastrohepatic ligament lymph node measures 8 mm versus 7 mm, previously. Celiac axis lymph node measures 1.1 cm versus 1.4 cm, previously. Anterior para-aortic lymph node measures 1.1 cm versus 1.8 cm, previously, axial image 36. Additional pericaval lymph node measures 1.6 cm, not significantly changed. Mesenteric lymph node in the median, right paramedian mid abdomen measures 8 mm, not significantly ch anged. Peripancreatic lymph node axial image 44 measures 1.1 cm, not significantly changed. Small fatty umbilical hernia. Noncontrast appearance of the kidneys, spleen with a anterior superior splenule, and pancreas otherwi se grossly unremarkable.. Bladder is urine distended. No abnormal fluid collection in the pelvis or pelvic lymphadenopathy seen . Numerous surgical clips along the retroperitoneum extending down along the left common iliac chain ca uses prominent streak and beam hardening artifacts causing limitations in assessment. There is moderate stool burden without pericolonic inflammatory change. Oral contrast has progressed to the upper ascending colon. Bones: Degenerative changes right SI joint and within the mid to lower lumbar spine. No osseous destructive process. IMPRESSION: 1. No abdominopelvic abscess identified on noncontrast CT. Pneumobilia persists with metallic biliary stent. 2. Upper abdominal retroperitoneal lymphadenopathy and a few mesenteric lymph nodes are redemonstrate d. A couple have decreased in size such as the anterior para-aortic lymph node now measuring 1.1 cm v ersus 1.8 cm, previously. Others have not changed. 3. Moderate stool burden and small fatty umbilical hernia.
[2016-05-26 14:46] VITALS: TEMP 98.7
--- NOTE | 2016-05-26 17:19 | PN ---
65-year-old admitted with prostate cancer recently received chemotherapy, came in with fever. Patient is on broad spectrum antibiotics, source of infection is unknown. Patient ultrasound of the abdomen did show acalculous cholecystitis but apparently patient has had gallbladder thickening for a long time and infectious disease ( ) surgery evaluation. Surgery was consulted. REVIEW OF SYSTEMS: CARDIOVASCULAR: No chest pain, no orthopnea, no PND, no palpitations. PULMONARY: Denied any shortness of breath. No cough or hemoptysis. GASTROINTESTINAL: No diarrhea, nausea or vomiting. No abdominal pain. Normoactive bowel sounds. NEUROLOGIC: No headaches, no weakness, no numbness. Medications were reviewed. PHYSICAL EXAMINATION: VITAL SIGNS: Temperature 98.5, pulse of 73, respirations 16, blood pressure 140/64, saturating at 96% on room air. GENERAL: The patient is alert and oriented x3, not in any acute distress. Well developed, well nourished. HEENT: Pupils are round and equally reacting to light. EOMI. No scleral icterus. No conjunctival pallor. Normocephalic, atraumatic. No pharyngeal erythema. No thyromegaly. CARDIOVASCULAR: S1 and S2 present. No murmurs, rubs, or gallops. PULMONARY: Chest is clear to auscultation, no wheezing or crackles. ABDOMEN: Soft, nontender, nondistended, normoactive bowel sounds. No palpable organomegaly. MUSCULOSKELETAL: No joint swelling or deformity. EXTREMITIES: No cyanosis, clubbing, or pedal edema. NEUROLOGICAL: Gross neurological examination did not reveal any focal deficits. SKIN: No rashes. CAT scan is being obtained as per infectious disease. Laboratory data was reviewed. No significant abnormality was appreciated. ASSESSMENT AND PLAN: 1. Sepsis. Unknown source. Patient does not have any symptoms of cholecystitis and ultrasound of the gallbladder reports as mentioned above. 2. History of pancreatic cancer. 3. Hypothyroidism. 4. Gastroesophageal reflux disease. 5. Peripheral neuropathy. Plan is to continue the present antibiotics. Surgical evaluation. CT of the abdomen.
[2016-05-26 21:33] VITALS: BP 116/79; PULSE 76
--- NOTE | 2016-05-27 08:57 | PN ---
DATE OF SERVICE: 05/26/2016 Reason for followup is a fever. INTERVAL HISTORY: The patient remains to afebrile. Has been breathing comfortably. Denies any significant chest pain, shortness of breath or cough. No nausea, vomiting or any diarrhea. On examination, blood pressure is 151/84 with a pulse of 85, temperature 98.7. He is 99% on room air. General description is an elderly male, lying in bed, in no distress. RESPIRATORY SYSTEM: Unlabored breathing. Clear to auscultation anteriorly. HEART: S1, S2. Regular rate and rhythm. ABDOMEN: Soft. No tenderness. EXTREMITIES: No edema of feet. LABS: Hemoglobin 10.2, white count 3.8 with a BUN of 12, creatinine 0.90. Liver enzymes have improved. Urine has been negative. Blood cultures so far negative. DIAGNOSTIC IMPRESSION AND PLAN: Patient admitted to the hospital with an episode of fever with rigors and chills in a patient who did have pancreatic cancer with previous biliary sepsis. The patient did have slightly elevated liver enzymes with concern for possible abdominal source. He did have an ultrasound that raised the possibility of acalculous cholecystitis that has been ruled out by surgery. CT of abdomen and pelvis has been ordered and completed. There is no evidence of any intra-abdominal abscess. He is currently on Zosyn that has been switched over to oral Augmentin for about a week with close outpatient followup. Continue supportive care. MTDChristopher
--- NOTE | 2016-05-27 16:51 | DS ---
DATE OF ADMISSION: 05/23/2016 DATE OF DISCHARGE: 05/26/2016 A 65-year-old admitted on chemotherapy for pancreatic cancer ( ) was not clearly identified. patient will be empirically discharged on Augmentin. There was suspicion ( ) for which Surgery evaluated the patient and no further recommendations from them and patient will be discharged today and to follow with primary care physician as an outpatient. No further interventions at this point of time. Please refer to my progress note for further details of hospitalization course. Please refer to my depart summary for further details of discharge. DISCHARGE ACTIVITY LEVEL: Activity as tolerated. The patient has followup with Oncology. I spent greater than 35 minutes in total discharge process.
== END 2016-05-26 20:45 | disposition home or self-care (01) | DRG 872 ==
LOC: EC 18:19 → 3SUR 21:44
PROVIDERS: ADMIT Internal Medicine; ATTEND Internal Medicine
DX: A41.9 Sepsis, unspecified organism (principal); C25.0 Malignant neoplasm of head of pancreas; C78.7 Secondary malignant neoplasm of liver and intrahepatic bile duct; G62.9 Polyneuropathy, unspecified; J98.6 Disorders of diaphragm; J32.9 Chronic sinusitis, unspecified; E03.9 Hypothyroidism, unspecified; K21.9 Gastro-esophageal reflux disease without esophagitis; R00.0 Tachycardia, unspecified; R53.1 Weakness; M19.90 Unspecified osteoarthritis, unspecified site; R12 Heartburn; K82.9 Disease of gallbladder, unspecified; J06.9 Acute upper respiratory infection, unspecified; R59.0 Localized enlarged lymph nodes; R05 Cough; R74.8 Abnormal levels of other serum enzymes; R23.1 Pallor; Z79.1 Long term (current) use of non-steroidal anti-inflammatories (NSAID); Z79.899 Other long term (current) drug therapy; Z85.47 Personal history of malignant neoplasm of testis; Z92.21 Personal history of antineoplastic chemotherapy; Z79.51 Long term (current) use of inhaled steroids; Z86.19 Personal history of other infectious and parasitic diseases; Z80.9 Family history of malignant neoplasm, unspecified; Z90.79 Acquired absence of other genital organ(s); Z87.19 Personal history of other diseases of the digestive system; Z96.89 Presence of other specified functional implants
CPT/HCPCS: 36415; 71020; 74000; 74176; 76705; 80053; 81003; 82150; 83605; 83690; 83735; 85025; 85027; 87040; 87502; 93005; 96361; 96365; 99284; 99285

== ENCOUNTER → 2016-07-03 | Outpatient (CLI) | payer OTHER, MEDICARE, BC ==
[2016-07-03 10:53] LABS: Blood Urea Nitrogen 17 mg/dL (9-20); Non-African American GFR(MDRD) >60 (>60 ml/min/1.73 sqM)
--- NOTE | 2016-07-03 12:35 | CT ---
EXAMINATION TYPE: CT ChestAbdPelvis w con DATE OF EXAM: 07/03/2016 12:09 PM COMPARISON: Previous study dated 04/17/2016 and 05/26/2016. HISTORY: Pancreatic cancer CT DLP: 1228.30 mGycm Automated exposure control for dose reduction was used. TECHNIQUE: Helical acquisition through the abdomen and pelvis was obtained without oral contrast but following the intravenous administration of 100 ml mL of Omnipaque 300. The data was formatted in th e axial, coronal and sagittal projections. FINDINGS: The lungs are clear. There is no significant axillary, mediastinal or hilar adenopathy. There is no pleural or pericardial fluid. The heart is not enlarged. The injection port projecting over the left chest. Its tip is at the cavoatrial junction. Within the abdomen, there is pneumobilia. The gallbladder is contracted. The spleen is unremarkable. There is a small splenule adjacent to the anterior tip of the spleen. Questionable lesions previously noted within the liver are not visualized on today's examination. There is a biliary stent in place. There are extensive surgical clips present within the retroperitoneal space. The pancreatic duct is m ildly dilated. Gastrohepatic ligament lymph node previously measuring 8.1 mm measures 7.5 mm on today's examination. Mesenteric lymph node previously measuring 10.6 mm now measures 10.8 mm. Celiac lymph node previousl y measuring 11.4 mm is not identified with certainty on today's examination. Paracaval lymph node brennon suring 1.4 cm previously 3 measures 1.3 cm. No definite new adenopathy is seen. The bladder is unremarkable. There is no significant diverticular change and there is no radiographic evidence of diverticulitis. The appendix is not visualized. Small bowel loops are normal. There is a small umbilical hernia containing fat only. There is degenerative change in both hips. There is degenerative disc disease, facet arthropathy and hypertrophic spondylosis throughout the spine. No bony destructive lesion is seen. IMPRESSION: 1. OVERALL REDUCTION IN THE SIZE OF THE RETROPERITONEAL, CELIAC AND PARACAVAL ADENOPATHY. 2. PERSISTENT PNEUMOBILIA. 3. SMALL UMBILICAL HERNIA CONTAINING FAT ONLY. 4. DEGENERATIVE CHANGES WITHIN THE SPINE.
== END | disposition home or self-care (01) ==
LOC: RADPROMAIN 10:00
PROVIDERS: ATTEND Internal Medicine Hematology & Oncology
DX: R59.1 Generalized enlarged lymph nodes (principal); C25.9 Malignant neoplasm of pancreas, unspecified; K83.8 Other specified diseases of biliary tract; K42.9 Umbilical hernia without obstruction or gangrene
CPT/HCPCS: 82565; 84520; 71260; 74177; Q9967 ×2

== ENCOUNTER → 2016-08-24 | Outpatient (CLI) | payer OTHER, MEDICARE, BC ==
[~2016-08-24] MED LIST: ALTEPLASE 2 MG VIAL (CATHFLO) IV STA
[2016-08-24 10:55] LABS: Blood Urea Nitrogen 16 mg/dL (9-20); Non-African American GFR(MDRD) >60 (>60 ml/min/1.73 sqM)
--- NOTE | 2016-08-24 13:37 | CT ---
EXAMINATION TYPE: CT ChestAbdPelvis w con DATE OF EXAM: 08/24/2016 INDICATION: follow up to carcinoma of the biliary duct COMPARISON: 07/03/2016 CT DLP: 2138 mGycm CONTRAST: Performed with Oral Contrast and with IV Contrast, patient injected with 100 mL of Omnipaque 300. TECHNIQUE: Axial images at 5 mm thick sections. Reconstructed images in the coronal plane. Delayed images through the kidneys. FINDINGS: CT CHEST: Portion of the thyroid visualized is normal. No suspicious lung nodules or focal infiltrates are present. Metallic densities in the posterior left lung base was present previously and has some mild beam hardening artifact. No enlarged mediastinal or hilar adenopathy is evident. The ascending aorta diameter at the level of the main pulmonary artery is 3.6 cm. The main pulmonary artery diameter at the bifurcation is 2.2 cm. Left axillary lymph node measures 1.0 cm in size. Some shotty lymphadenopathy is present within the r ight axillary region. CT ABDOMEN: Liver: There is within the biliary tree. Air is within the gallbladder. A biliary stent is present. Spleen: Normal Pancreas: Normal surgical sutures are posterior to the pancreas. Adrenal glands: The adrenal glands are normal. Gallbladder: There is air within the gallbladder. The stent extends through the common bile duct into the duodenum. Extrahepatic and intrahepatic biliary air filled ducts are present. No definite duct thickening is evident. Kidneys: There is been a left nephrectomy. No masses are evident. No hydronephrosis is present. No cysts are present. Delayed images were obtained through the kidneys, which remain unremarkable. Aorta: Extensive periaortic surgical clips and beam hardening artifact are present. Inferior vena cava: Normal. CT PELVIS: Loops of bowel within the abdomen and pelvis are normal. There are loops of bowel which are incom pletely distended or lack oral contrast limiting their evaluation. Appendix: Normal as visualized. Urinary bladder: Normal. Genitourinary structures: Prostate is prominent. Osseous structures: No suspicious lytic or sclerotic lesions. IMPRESSIONS: 1. Biliary stent with air within the biliary tree. Recurrent mass is not identified. 2. Postsurgical changes in the periaortic region
== END | disposition home or self-care (01) ==
LOC: RADPROMAIN 10:07
PROVIDERS: ATTEND Internal Medicine Hematology & Oncology
DX: C24.9 Malignant neoplasm of biliary tract, unspecified (principal); Z98.890 Other specified postprocedural states
CPT/HCPCS: 82565; 84520; 96374; 71260; 74177; 36415; Q9967; J1642; J2997

== ENCOUNTER 2016-10-04 15:48 | Inpatient (IN) | payer OTHER, MEDICARE, BC ==
[2016-10-04] MEDS ORDERED: ACETAMINOPHEN IV (For NPO) 1,000 MG in EMPTY BAG 1 BAG IVPB STA (16:13)
[2016-10-04] MEDS ORDERED: KETOROLAC 30 MG/ML 1 ML VIAL IVP STA (16:13)
[2016-10-04] MEDS ORDERED: SODIUM CHLORIDE 0.9% 500 ML IV STA (16:13)
[2016-10-04] MEDS ORDERED: SODIUM CHLORIDE 0.9% 1,000 ML IV STA ×3 (16:13→19:01)
--- NOTE | 2016-10-04 16:43 | ED ---
General Adult HPI - General Chief complaint: Fever Stated complaint: Dr Rai Time Seen by Provider: 10/04/16 16:10 Source: patient, RN notes reviewed, old records reviewed Mode of arrival: wheelchair Limitations: no limitations - History of Present Illness Initial comments: This is a 66-year-old male to the ER for evaluation. The patient presents for evaluation regarding fever. Patient has history of biliary duct CVA, pancreas extent. Patient is going through chemo but noticed fever today. Patient in here for evaluation of fever, he does admit to cough - Related Data Home Medications Medication Instructions Recorded Confirmed Docusate [Colace] 100 mg PO BID 11/19/15 10/04/16 Levothyroxine Sodium [Synthroid] 88 mcg PO DAILY 11/19/15 10/04/16 Fluticasone Nasal [place] [Flonase 2 spray EA NOSTRIL DAILY 05/23/16 10/04/16 Nasal [place]] Multivitamins, Thera [Multivitamin 1 tab PO DAILY 05/23/16 10/04/16 (formulary)] Prochlorperazine [Compazine] 10 mg PO Q6H PRN 05/23/16 10/04/16 Acetaminophen Tab [Tylenol Tab] 650 mg PO Q4-6H PRN 10/04/16 10/04/16 Omeprazole [PriLOSEC] 20 mg PO DAILY 10/04/16 10/04/16 Allergies Allergy/AdvReac Type Severity Reaction Status Date / Time No Known Allergies Allergy Verified 10/04/16 16:04 Review of Systems ROS Statement: Those systems with pertinent positive or pertinent negative responses have been documented in the HPI. ROS Other: All systems not noted in ROS Statement are negative. Past Medical History Past Medical History: Cancer, Thyroid Disorder Additional Past Medical History / Comment(s): TESTICULAR CA 1979, pancreatic ca diagnosed February 2015 History of Any Multi-Drug Resistant Organisms: None Reported Past Surgical History: Hernia Repair, Tonsillectomy Additional Past Surgical History / Comment(s): 1979 LT TESTICLE AND LYMPHNODES REMOVED ALONG SPINE,RT ING HERNIA REPAIR X 3 WITH MESH,HEMORRHOIDECT, COLONOSCOPY titanum stent in pancreas, smart port. Past Anesthesia/Blood Transfusion Reactions: No Reported Reaction Past Psychological History: No Psychological Hx Reported Smoking Status: Never smoker Past Alcohol Use History: None Reported Past Drug Use History: None Reported - Past Family History Mother Family Medical History: Cancer Sister(s) Family Medical History: Cancer Brother(s) Family Medical History: Cancer Father Family Medical History: Cancer General Exam Limitations: no limitations General appearance: alert, in no apparent distress Head exam: Present: atraumatic, normocephalic, normal inspection Eye exam: Present: normal appearance, PERRL, EOMI. Absent: scleral icterus, conjunctival injection, periorbital swelling ENT exam: Present: normal exam, mucous membranes moist Neck exam: Present: normal inspection. Absent: tenderness, meningismus, lymphadenopathy Respiratory exam: Present: normal lung sounds bilaterally. Absent: respiratory distress, wheezes, rales, rhonchi, stridor Cardiovascular Exam: Present: regular rate, normal rhythm, normal heart sounds. Absent: systolic murmur, diastolic murmur, rubs, gallop, clicks GI/Abdominal exam: Present: soft, normal bowel sounds. Absent: distended, tenderness, guarding, rebound, rigid Extremities exam: Present: normal inspection, full ROM, normal capillary refill. Absent: tenderness, pedal edema, joint swelling, calf tenderness Back exam: Present: normal inspection Neurological exam: Present: alert, oriented X3, CN II-XII intact Psychiatric exam: Present: normal affect, normal mood Skin exam: Present: warm, dry, intact, normal color. Absent: rash Course Vital Signs 10/04/16 10/04/16 10/04/16 15:50 17:44 18:04 Temperature 98.3 F Pulse Rate 108 H 103 H 106 H Respiratory 20 18 18 Rate Blood Pressure 132/70 119/65 105/64 O2 Sat by Pulse 98 97 96 Oximetry 10/04/16 19:03 Temperature 99.4 F Pulse Rate 96 Respiratory 14 Rate Blood Pressure 95/62 O2 Sat by Pulse 91 L Oximetry - Reevaluation(s) Reevaluation #1: 10/04/16 19:10 Without [employer] will observe patient overnight for recurrence of fever, fluid rehydration and pulmonary monitoring, monitoring of fever and rehydration EKG Findings - EKG Comments: EKG Findings:: EKG shows sinus tachycardia rate 107, SD 140, QRS 437, QTc 86 Medical Decision Making - Medical Decision Making [address] [place] [address] for evaluation regarding fever. Patient will be admitted for rehydration, monitoring of fever and symptom management. - Lab Data Result diagrams: 10/04/16 16:50 10/04/16 16:50 Lab Results 10/04/16 10/04/16 10/04/16 Range/Units 16:50 16:50 16:50 WBC 6.4 (3.8-10.6) k/uL RBC 3.91 L (4.30-5.90) m/uL Hgb 12.1 L (13.0-17.5) gm/dL Hct 36.4 L (39.0-53.0) % MCV 93.1 (80.0-100.0) fL MCH 31.0 (25.0-35.0) pg MCHC 33.3 (31.0-37.0) g/dL RDW 18.4 H (11.5-15.5) % Plt Count 196 (150-450) k/uL Neutrophils % 78 % Lymphocytes % 6 % Monocytes % 13 % Eosinophils % 1 % Basophils % 0 % Neutrophils # 5.0 (1.3-7.7) k/uL Lymphocytes # 0.4 L (1.0-4.8) k/uL Monocytes # 0.9 (0-1.0) k/uL Eosinophils # 0.0 (0-0.7) k/uL Basophils # 0.0 (0-0.2) k/uL Anisocytosis Slight PT (9.0-12.0) sec INR (<1.2) APTT (22.0-30.0) sec Sodium 137 (137-145) mmol/L Potassium 4.4 (3.5-5.1) mmol/L Chloride 103 (98-107) mmol/L Carbon Dioxide 24 (22-30) mmol/L Anion Gap 10 mmol/L BUN 15 (9-20) mg/dL Creatinine 0.80 (0.66-1.25) mg/dL Est GFR (MDRD) Af Amer >60 (>60 ml/min/1.73 sqM) Est GFR (MDRD) Non-Af >60 (>60 ml/min/1.73 sqM) Glucose 98 (74-99) mg/dL Plasma Lactic Acid Paddy (0.7-2.0) mmol/L Calcium 9.4 (8.4-10.2) mg/dL Phosphorus 3.1 (2.5-4.5) mg/dL Magnesium 1.8 (1.6-2.3) mg/dL Total Bilirubin 1.3 (0.2-1.3) mg/dL AST 295 H (17-59) U/L ALT 241 H (21-72) U/L Alkaline Phosphatase 248 H (38-126) U/L Total Creatine Kinase 35 L (55-170) U/L CK-MB (CK-2) <0.2 (0.0-2.4) ng/mL CK-MB (CK-2) Rel Index Troponin I <0.012 (0.000-0.034) ng/mL Total Protein 6.4 (6.3-8.2) g/dL Albumin 3.8 (3.5-5.0) g/dL Lipase 108 (23-300) U/L Urine Color Urine Appearance (Clear) Urine pH (5.0-8.0) Ur Specific [place] (1.001-1.035) Urine Protein (Negative) Urine Glucose (UA) (Negative) Urine Ketones (Negative) Urine Blood (Negative) Urine Nitrite (Negative) Urine Bilirubin (Negative) Urine Urobilinogen (<2.0) mg/dL Ur Leukocyte Esterase (Negative) 10/04/16 10/04/16 10/04/16 Range/Units 16:50 16:50 16:50 WBC (3.8-10.6) k/uL RBC (4.30-5.90) m/uL Hgb (13.0-17.5) gm/dL Hct (39.0-53.0) % MCV (80.0-100.0) fL MCH (25.0-35.0) pg MCHC (31.0-37.0) g/dL RDW (11.5-15.5) % Plt Count (150-450) k/uL Neutrophils % % Lymphocytes % % Monocytes % % Eosinophils % % Basophils % % Neutrophils # (1.3-7.7) k/uL Lymphocytes # (1.0-4.8) k/uL Monocytes # (0-1.0) k/uL Eosinophils # (0-0.7) k/uL Basophils # (0-0.2) k/uL Anisocytosis PT 10.2 (9.0-12.0) sec INR 1.0 (<1.2) APTT 22.1 (22.0-30.0) sec Sodium (137-145) mmol/L Potassium (3.5-5.1) mmol/L Chloride (98-107) mmol/L Carbon Dioxide (22-30) mmol/L Anion Gap mmol/L BUN (9-20) mg/dL Creatinine (0.66-1.25) mg/dL Est GFR (MDRD) Af Amer (>60 ml/min/1.73 sqM) Est GFR (MDRD) Non-Af (>60 ml/min/1.73 sqM) Glucose (74-99) mg/dL Plasma Lactic Acid Paddy 1.5 (0.7-2.0) mmol/L Calcium (8.4-10.2) mg/dL Phosphorus (2.5-4.5) mg/dL Magnesium (1.6-2.3) mg/dL Total Bilirubin (0.2-1.3) mg/dL AST (17-59) U/L ALT (21-72) U/L Alkaline Phosphatase (38-126) U/L Total Creatine Kinase (55-170) U/L CK-MB (CK-2) (0.0-2.4) ng/mL CK-MB (CK-2) Rel Index Troponin I (0.000-0.034) ng/mL Total Protein (6.3-8.2) g/dL Albumin (3.5-5.0) g/dL Lipase (23-300) U/L Urine Color Yellow Urine Appearance Clear (Clear) Urine pH 7.0 (5.0-8.0) Ur Specific [place] 1.009 (1.001-1.035) Urine Protein Negative (Negative) Urine Glucose (UA) Negative (Negative) Urine Ketones Negative (Negative) Urine Blood Negative (Negative) Urine Nitrite Negative (Negative) Urine Bilirubin Negative (Negative) Urine Urobilinogen <2.0 (<2.0) mg/dL Ur Leukocyte Esterase Negative (Negative) - Radiology Data Radiology results: report reviewed (Chest x-ray is negative for acute disease), image reviewed Disposition Clinical Impression: Elevated LFTs, Fever, Ampullary carcinoma, Status post chemotherapy, time since less than 4 weeks Disposition: ADMITTED IP TO THIS HOSP Condition: Fair Referrals: Shelby Styles MD [Primary Care Provider] - 1-2 days
[2016-10-04 17:04] LABS: Anisocytosis Slight; Basophils % (A) 0 %; CH 30.4; CHCM 32.7; Eosinophils % (A) 1 %; HCT 36.4 % (39.0-53.0); HDW 2.92; HGB 12.1 gm/dL (13.0-17.5); Luc # (Auto) 0.15; Luc % (Auto) 2; Lymphocytes # (A) 0.4 k/uL (1.0-4.8); Lymphocytes % (A) 6 %; MCHC 33.3 g/dL (31.0-37.0); MCV 93.1 fL (80.0-100.0); Monocytes # (A) 0.9 k/uL (0-1.0); Monocytes % (A) 13 %; Neutrophils % (A) 78 %; RBC 3.91 m/uL (4.30-5.90); RDW 18.4 % (11.5-15.5); WBC 6.4 k/uL (3.8-10.6); WBC (Perox) 6.86
[2016-10-04 17:05] LABS: Appearance,Urine Clear (Clear); Bilirubin,Urine Negative (Negative); Glucose,Urine (UA) Negative (Negative); Ketones,Urine Negative (Negative); Leukocyte Esterase,Urine Negative (Negative); Nitrite,Urine Negative (Negative); Protein,Urine Negative (Negative); Specific Gravity,Urine 1.009 (1.001-1.035); UA Billing (MACRO vs. MICRO) CHEM; Urobilinogen,Urine <2.0 mg/dL (<2.0)
[2016-10-04 17:20] LABS: Partial Thromboplastin Time 22.1 sec (22.0-30.0); Prothrombin Time 10.2 sec (9.0-12.0)
[2016-10-04 17:21] LABS: ALT 241 U/L (21-72); AST 295 U/L (17-59); Alkaline Phosphatase 248 U/L (38-126); Anion Gap 10 mmol/L; Blood Urea Nitrogen 15 mg/dL (9-20); Calcium 9.4 mg/dL (8.4-10.2); Carbon Dioxide 24 mmol/L (22-30); Chloride 103 mmol/L (98-107); Glucose 98 mg/dL (74-99); Magnesium 1.8 mg/dL (1.6-2.3); Non-African American GFR(MDRD) >60 (>60 ml/min/1.73 sqM); Phosphorous 3.1 mg/dL (2.5-4.5); Potassium 4.4 mmol/L (3.5-5.1); Sodium 137 mmol/L (137-145); Total Bilirubin 1.3 mg/dL (0.2-1.3); Total Protein 6.4 g/dL (6.3-8.2)
[2016-10-04 17:23] LABS: Creatine Kinase 35 U/L (55-170)
[2016-10-04 17:36] LABS: Creatine Kinase MB <0.2 ng/mL (0.0-2.4); Troponin I <0.012 ng/mL (0.000-0.034)
--- NOTE | 2016-10-04 17:52 | XR ---
EXAMINATION TYPE: XR chest 2V DATE OF EXAM: 10/04/2016 COMPARISON: May 23, 2016 HISTORY: Weakness with a fever. TECHNIQUE: Frontal and lateral views of the chest are obtained. FINDINGS: There is no focal air space opacity, pleural effusion, or pneumothorax seen. The cardiac silhouette size is within normal limits. The osseous structures are intact. Mediport is noted with the tip in the superior vena cava. Multiple surgical clips are identified in t he abdomen. A biliary stent is also noted. IMPRESSION: No acute cardiopulmonary process.
[2016-10-04] MEDS ORDERED: SODIUM CHLORIDE 0.9% 1,000 ML IV ONE (19:01)
[2016-10-04] MEDS ORDERED: PROCHLORPERAZINE 10 MG TAB PO PRN (20:18)
[2016-10-04] MEDS ORDERED: ALPRAZolam 0.25 MG TAB PO PRN (20:20)
[2016-10-04] MEDS ORDERED: TEMAZEPAM 15 MG CAP PO PRN (20:20)
[2016-10-04] MEDS ORDERED: HYDROcodone/APAP 5-325MG 1 EACH TAB PO PRN (20:20)
[2016-10-04] MEDS ORDERED: HYDROmorphone 1 MG/ML 1 ML SYRINGE IVP PRN (20:20)
[2016-10-04] MEDS: DOCUSATE 100 MG CAP PO SCH (20:49)
[2016-10-04] MEDS: PIPERACILLIN-TAZOBACTAM 3.375 GM in DEXTROSE/WATER 1 50ML.BAG IVPB SCH (23:11)
[2016-10-05] MEDS: LEVOTHYROXINE 88 MCG TAB PO SCH (06:13)
[2016-10-05 07:39] LABS: ALT 161 U/L (21-72); AST 119 U/L (17-59); Alkaline Phosphatase 180 U/L (38-126); Anion Gap 9 mmol/L; Blood Urea Nitrogen 12 mg/dL (9-20); Calcium 8.9 mg/dL (8.4-10.2); Carbon Dioxide 25 mmol/L (22-30); Chloride 109 mmol/L (98-107); Glucose 91 mg/dL (74-99); Non-African American GFR(MDRD) >60 (>60 ml/min/1.73 sqM); Potassium 4.8 mmol/L (3.5-5.1); Sodium 143 mmol/L (137-145); Total Bilirubin 1.8 mg/dL (0.2-1.3); Total Protein 5.5 g/dL (6.3-8.2)
[2016-10-05 07:45] LABS: Anisocytosis Slight; Aty Lym Flag Slight; CH 30.3; CHCM 31.3; HCT 36.3 % (39.0-53.0); HDW 2.84; HGB 11.3 gm/dL (13.0-17.5); Hypochromasia Slight; MCH 30.1 pg (25.0-35.0); MCHC 31.1 g/dL (31.0-37.0); MCV 96.9 fL (80.0-100.0); Macrocytosis Slight; Mean Platelet Volume 6.6; RBC 3.74 m/uL (4.30-5.90); RDW 18.6 % (11.5-15.5); WBC 6.1 k/uL (3.8-10.6); WBC (Perox) 6.19
[2016-10-05] MEDS: PIPERACILLIN-TAZOBACTAM 3.375 GM in DEXTROSE/WATER 1 50ML.BAG IVPB SCH ×3 (08:07→23:40)
[2016-10-05] MEDS: PANTOPRAZOLE 40 MG TABLET PO SCH (08:09)
[2016-10-05] MEDS: DOCUSATE 100 MG CAP PO SCH ×2 (08:10→21:15)
[2016-10-05] MEDS: ENOXAPARIN 40 MG/0.4 ML SYRINGE SQ SCH (08:11)
[2016-10-05] MEDS: MULTIVITAMINS, THERA 1 EACH TAB PO SCH (08:11)
[2016-10-05 09:18] LABS: Add Differential Manual Differential
[2016-10-05] MEDS ORDERED: IV VANCOMYCIN PER PHARMACY 1 EACH MISC MISCELLANE PRN (09:19)
[2016-10-05 09:20] LABS: Nucleated Red Blood Cells 0 /100 WBC (0-0); Total Cells Counted 100
[2016-10-05] MEDS ORDERED: VANCOMYCIN 1,500 MG in SODIUM CHLORIDE 0.9% 250 ML IVPB SCH (10:00)
--- NOTE | 2016-10-05 10:10 | P.CONS ---
History of Present Illness - Reason for Consult Consult date: 10/05/16 Sepsis - History of Present Illness This is a 66-year-old male who has a past medical history significant for pancreatic cancer currently on chemotherapy under the care of Dr. Dominguez diagnosed in February 2015. Patient received his last chemotherapy 3 weeks ago and is off chemo for this month with plan for repeat scan at the end of the month. Patient complains of sudden onset yesterday of fever, chills, rigors, generalized malaise. He denies any abdominal pain, nausea, vomiting, diarrhea. He denies any dysuria. He does have a cough that's chronic secondary to sinus drainage. He came into [facility] emergency center for evaluation. Chest x-ray showed no acute findings. His white count was at 6.5 and pulse of 108. Patient has received a total 4-1/2 L of IV fluid and lactic acid was 3.1 today. The patient was started on Zosyn and placed on the observation unit with plan for admission to the oncology unit. Liver tests have been elevated but improved from yesterday. Review of Systems All systems: negative Constitutional: Reports chills, Reports fatigue, Reports fever, Reports malaise , Reports sweats, Reports weakness Eyes: denies blurred vision, denies pain Ears, nose, mouth and throat: Reports mouth pain, Denies dental pain, Denies headache, Denies sore throat, Denies vertigo Cardiovascular: Denies chest pain, Denies decreased exercise tolerance, Denies dyspnea on exertion, Denies edema, Denies leg edema, Denies lightheadedness, Denies shortness of breath, Denies syncope Respiratory: Reports cough with sputum, Denies cough, Denies dyspnea, Denies hemoptysis, Denies home oxygen, Denies wheezing Gastrointestinal: Denies abdominal pain, Denies diarrhea, Denies nausea, Denies vomiting Genitourinary: Denies dysuria, Denies hematuria, Denies urinary frequency, Denies urinary retention Musculoskeletal: Reports myalgias Integumentary: Denies pruritus, Denies rash Neurological: Denies numbness, Denies weakness Psychiatric: Denies anxiety, Denies depression Endocrine: Denies fatigue, Denies weight change Past Medical History Past Medical History: Cancer, Thyroid Disorder Additional Past Medical History / Comment(s): TESTICULAR CA 1979, pancreatic ca diagnosed February 2015, sepsis History of Any Multi-Drug Resistant Organisms: None Reported Past Surgical History: Hernia Repair, Tonsillectomy Additional Past Surgical History / Comment(s): 1980 LT TESTICLE AND LYMPHNODES REMOVED ALONG SPINE,RT ING HERNIA REPAIR X 3 WITH MESH,HEMORRHOIDECT, COLONOSCOPY titanum stent in pancreas in 02/2015 and restent 01/2016, smart port. Past Anesthesia/Blood Transfusion Reactions: No Reported Reaction Past Psychological History: No Psychological Hx Reported Smoking Status: Never smoker Past Alcohol Use History: None Reported Additional Past Alcohol Use History / Comment(s): Patient is a lifelong nonsmoker. 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 He lives at home with his and son. There is a cat in the home. No recent travel or service. Past Drug Use History: None Reported - Past Family History Mother Family Medical History: Cancer Sister(s) Family Medical History: Cancer Brother(s) Family Medical History: Cancer Father Family Medical History: Cancer Medications and Allergies Home Medications Medication Instructions Recorded Confirmed Type Docusate [Colace] 100 mg PO BID 11/19/15 10/04/16 History Levothyroxine Sodium [Synthroid] 88 mcg PO DAILY 11/19/15 10/04/16 History Fluticasone Nasal [place] [Flonase 2 spray EA NOSTRIL DAILY 05/23/16 10/04/16 History Nasal [place]] Multivitamins, Thera [Multivitamin 1 tab PO DAILY 05/23/16 10/04/16 History (formulary)] Prochlorperazine [Compazine] 10 mg PO Q6H PRN 05/23/16 10/04/16 History Acetaminophen Tab [Tylenol Tab] 650 mg PO Q4-6H PRN 10/04/16 10/04/16 History Omeprazole [PriLOSEC] 20 mg PO DAILY 10/04/16 10/04/16 History Allergies Allergy/AdvReac Type Severity Reaction Status Date / Time No Known Allergies Allergy Verified 10/04/16 20:29 Physical Exam Vitals: Vital Signs Temp Pulse Pulse Resp BP BP Pulse Ox 10/05/16 08:14 98 10/05/16 07:57 99 F 10/05/16 04:00 99.1 F 69 18 115/67 97 10/05/16 03:22 18 10/04/16 23:16 18 10/04/16 23:14 98.7 F 10/04/16 20:00 99.2 F 86 18 114/68 96 10/04/16 19:03 99.4 F 96 14 95/62 91 L 10/04/16 18:04 106 H 18 105/64 96 10/04/16 17:44 103 H 18 119/65 97 10/04/16 15:50 98.3 F 108 H 20 132/70 98 Intake and Output 10/04/16 10/05/16 10/05/16 22:59 06:59 14:59 Intake Total 950 Balance 950 Intake: IV 700 Sodium Chloride 0.9% 1, 700 000 ml @ 100 mls/hr IV . Q10H STA Rx#:[id number] Intake, IV Titration 50 Amount Piperacillin-Tazobactam 3 50 .375 gm In Dextrose/Water 1 50ml.bag @ 12.5 mls/hr IVPB Q8HR MAGDY Rx#: [id number] Oral 200 Other: Voiding Method Toilet Toilet Toilet # Voids 2 Weight 84.368 kg Gen: This is a 66-year-old male. He is sitting up in bed and appears to be in no acute distress. HEENT: Head is atraumatic, normocephalic. Pupils equal, round. Sclerae is anicteric. Conjunctiva pink. Mucous members of the mouth are moist. White coating on the tongue. NECK: Supple. No JVD. No lymphadenopathy. No thyromegaly. LUNGS: Clear to auscultation. No wheezes or rhonchi. No intercostal retractions. HEART: Regular rate and rhythm. No murmur. ABDOMEN: Soft. Bowel sounds are present. No masses. No tenderness. EXTREMITIES: No pedal edema. No calf tenderness. Dorsalis pedis is +2 bilaterally. NEUROLOGICAL: Patient is awake, alert and oriented x3. Cranial nerves 2 through 12 are grossly intact. Results Results: Laboratory Results WBC 6.1 k/uL (3.8-10.6) 10/05/16 07:06 RBC 3.74 m/uL (4.30-5.90) L 10/05/16 07:06 Hgb 11.3 gm/dL (13.0-17.5) L 10/05/16 07:06 Hct 36.3 % (39.0-53.0) L 10/05/16 07:06 MCV 96.9 fL (80.0-100.0) 10/05/16 07:06 MCH 30.1 pg (25.0-35.0) 10/05/16 07:06 MCHC 31.1 g/dL (31.0-37.0) 10/05/16 07:06 RDW 18.6 % (11.5-15.5) H 10/05/16 07:06 Plt Count 180 k/uL (150-450) 10/05/16 07:06 Neutrophils % 78 % 10/04/16 16:50 Neutrophils % (Manual) 68 % 10/05/16 07:06 Lymphocytes % 6 % 10/04/16 16:50 Lymphocytes % (Manual) 2 % 10/05/16 07:06 Monocytes % 13 % 10/04/16 16:50 Monocytes % (Manual) 24 % 10/05/16 07:06 Eosinophils % 1 % 10/04/16 16:50 Eosinophils % (Manual) 6 % 10/05/16 07:06 Basophils % 0 % 10/04/16 16:50 Neutrophils # 5.0 k/uL (1.3-7.7) 10/04/16 16:50 Neutrophils # (Manual) 4.15 k/uL (1.3-7.7) 10/05/16 07:06 Lymphocytes # 0.4 k/uL (1.0-4.8) L 10/04/16 16:50 Lymphocytes # (Manual) 0.12 k/uL (1.0-4.8) L 10/05/16 07:06 Monocytes # 0.9 k/uL (0-1.0) 10/04/16 16:50 Monocytes # (Manual) 1.46 k/uL (0-1.0) H 10/05/16 07:06 Eosinophils # 0.0 k/uL (0-0.7) 10/04/16 16:50 Eosinophils # (Manual) 0.37 k/uL (0-0.7) 10/05/16 07:06 Basophils # 0.0 k/uL (0-0.2) 10/04/16 16:50 Nucleated RBCs 0 /100 WBC (0-0) 10/05/16 07:06 Hypochromasia Slight 10/05/16 07:06 Poikilocytosis (manual Present 10/05/16 07:06 Anisocytosis Slight 10/05/16 07:06 Macrocytosis Slight 10/05/16 07:06 PT 10.2 sec (9.0-12.0) 10/04/16 16:50 INR 1.0 (<1.2) 10/04/16 16:50 APTT 22.1 sec (22.0-30.0) 10/04/16 16:50 Sodium 143 mmol/L (137-145) 10/05/16 07:06 Potassium 4.8 mmol/L (3.5-5.1) 10/05/16 07:06 Chloride 109 mmol/L (98-107) H 10/05/16 07:06 Carbon Dioxide 25 mmol/L (22-30) 10/05/16 07:06 Anion Gap 9 mmol/L 10/05/16 07:06 BUN 12 mg/dL (9-20) 10/05/16 07:06 Creatinine 0.94 mg/dL (0.66-1.25) 10/05/16 07:06 Est GFR (MDRD) Af Amer >60 (>60 ml/min/1.73 sqM) 10/05/16 07:06 Est GFR (MDRD) Non-Af >60 (>60 ml/min/1.73 sqM) 10/05/16 07:06 Glucose 91 mg/dL (74-99) 10/05/16 07:06 Plasma Lactic Acid Paddy 3.1 mmol/L (0.7-2.0) H* 10/05/16 07:06 Calcium 8.9 mg/dL (8.4-10.2) 10/05/16 07:06 Phosphorus 3.1 mg/dL (2.5-4.5) 10/04/16 16:50 Magnesium 1.8 mg/dL (1.6-2.3) 10/04/16 16:50 Total Bilirubin 1.8 mg/dL (0.2-1.3) H 10/05/16 07:06 AST 119 U/L (17-59) H 10/05/16 07:06 ALT 161 U/L (21-72) H 10/05/16 07:06 Alkaline Phosphatase 180 U/L (38-126) H 10/05/16 07:06 Total Creatine Kinase 35 U/L (55-170) L 10/04/16 16:50 CK-MB (CK-2) <0.2 ng/mL (0.0-2.4) 10/04/16 16:50 CK-MB (CK-2) Rel Index 10/04/16 16:50 Troponin I <0.012 ng/mL (0.000-0.034) 10/04/16 16:50 Total Protein 5.5 g/dL (6.3-8.2) L 10/05/16 07:06 Albumin 3.1 g/dL (3.5-5.0) L 10/05/16 07:06 Lipase 108 U/L (23-300) 10/04/16 16:50 Urine Color Yellow 10/04/16 16:50 Urine Appearance Clear (Clear) 10/04/16 16:50 Urine pH 7.0 (5.0-8.0) 10/04/16 16:50 Ur Specific [place] 1.009 (1.001-1.035) 10/04/16 16:50 Urine Protein Negative (Negative) 10/04/16 16:50 Urine Glucose (UA) Negative (Negative) 10/04/16 16:50 Urine Ketones Negative (Negative) 10/04/16 16:50 Urine Blood Negative (Negative) 10/04/16 16:50 Urine Nitrite Negative (Negative) 10/04/16 16:50 Urine Bilirubin Negative (Negative) 10/04/16 16:50 Urine Urobilinogen <2.0 mg/dL (<2.0) 10/04/16 16:50 Ur Leukocyte Esterase Negative (Negative) 10/04/16 16:50 CBC & Chem 7: 10/05/16 07:06 10/05/16 07:06 Labs: Abnormal Lab Results - Last 24 Hours (Table) 10/04/16 10/04/16 10/04/16 Range/Units 16:50 16:50 16:50 RBC 3.91 L (4.30-5.90) m/uL Hgb 12.1 L (13.0-17.5) gm/dL Hct 36.4 L (39.0-53.0) % RDW 18.4 H (11.5-15.5) % Lymphocytes # 0.4 L (1.0-4.8) k/uL Chloride (98-107) mmol/L Plasma Lactic Acid Paddy (0.7-2.0) mmol/L Total Bilirubin (0.2-1.3) mg/dL AST 295 H (17-59) U/L ALT 241 H (21-72) U/L Alkaline Phosphatase 248 H (38-126) U/L Total Creatine Kinase 35 L (55-170) U/L Total Protein (6.3-8.2) g/dL Albumin (3.5-5.0) g/dL 10/05/16 10/05/16 10/05/16 Range/Units 07:06 07:06 07:06 RBC 3.74 L (4.30-5.90) m/uL Hgb 11.3 L (13.0-17.5) gm/dL Hct 36.3 L (39.0-53.0) % RDW 18.6 H (11.5-15.5) % Lymphocytes # (1.0-4.8) k/uL Chloride 109 H (98-107) mmol/L Plasma Lactic Acid Paddy 3.1 H* (0.7-2.0) mmol/L Total Bilirubin 1.8 H (0.2-1.3) mg/dL AST 119 H (17-59) U/L ALT 161 H (21-72) U/L Alkaline Phosphatase 180 H (38-126) U/L Total Creatine Kinase (55-170) U/L Total Protein 5.5 L (6.3-8.2) g/dL Albumin 3.1 L (3.5-5.0) g/dL Microbiology - Last 24 Hours (Table) 10/04/16 16:50 Urine Culture - Preliminary Urine,Voided Assessment and Plan Plan: This is a 66-year-old male who is currently undergoing chemotherapy for pancreatic cancer. Patient presents with signs of sepsis most likely biliary sepsis. He does have history of bacteremia in the past. Currently, blood culture is status received patient is currently on Zosyn and vancomycin will be added. Continue supportive care. Further recommendations as patient progresses. The above dictated assessment and findings were discussed with Dr. Spivey. The impression and plan of care have been directed as dictated. Chinyere Convery nurse practitioner acting as scribe for Dr. Spivey.
[2016-10-05] MEDS: ACETAMINOPHEN TAB 325 MG TAB PO PRN ×2 (10:40→17:32)
[2016-10-05] MEDS ORDERED: SODIUM CHLORIDE 0.9% 2,000 ML IV ONE (10:53)
[2016-10-05] MEDS: FLUTICASONE 50MCG/SPRAY NASAL 16GM EA NOSTRIL SCH (12:27)
[2016-10-05] MEDS: NYSTATIN 100,000 UNIT/ML SUSP 500,000 UNIT/5 ML CUP PO SCH ×3 (12:30→21:16)
--- NOTE | 2016-10-05 12:49 | P.CONS ---
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 He had external biliary drain then had titanium internal biliary stent placement and mediport placement, chemo with [id number] was started Mar 2015. Ca 19-9 was followed, 88 on diagnosis, after 1 cycle of chemo it was 7, in May is was 11. On 06/13/2015 repeat liver MRI revealed possible progression of his disease and mFOLFOX was discontinued and he was started on gemzar/abraxane in June. Treatment follow up MRI in July revealed stable disease. Next follow up in Sep liver MRI revealed improvement in liver lesions. Treatment had dose reduction and then was held in Oct for progressive neuropathy. Pt was hospitalized on Nov for ecoli infection and obstructed biliary stent. Follow up CT for the next 4 months revealed no evidence of active disease. 04/17/2016 CT scan revealed new abdominal nodes and liver lesion and he was started on onivyde and 5FU April 2016, treatment follow up scans in June and August revealed further improvement in his disease. He has had 10 cycles, last treatment on 09/14, pt was starting to have progressive side effect so plan when evaluated by Dr. Dominguez at that time was for chemo holiday with re-imaging in 4-6 weeks. Pt was having fevers at home yesterday, concerned for biliary stent infection as pt had this prior. When seen this AM pt had not had a fever, denied nausea, vomiting, abd pain or bloating, dysuria, diarrhea or constipation. His lactic acid doubled overnight, LFTs improved slightly, bilirubin increased. Review of Systems All systems: negative Constitutional: Reports as per HPI Past Medical History Past Medical History: Cancer, Thyroid Disorder Additional Past Medical History / Comment(s): TESTICULAR CA 1979, pancreatic ca diagnosed February 2015, sepsis History of Any Multi-Drug Resistant Organisms: None Reported Past Surgical History: Hernia Repair, Tonsillectomy Additional Past Surgical History / Comment(s): 1980 LT TESTICLE AND LYMPHNODES REMOVED ALONG SPINE,RT ING HERNIA REPAIR X 3 WITH MESH,HEMORRHOIDECT, COLONOSCOPY titanum stent in pancreas in 02/2015 and restent 01/2016, smart port. Past Anesthesia/Blood Transfusion Reactions: No Reported Reaction Past Psychological History: No Psychological Hx Reported Smoking Status: Never smoker Past Alcohol Use History: None Reported Additional Past Alcohol Use History / Comment(s): Patient is a lifelong nonsmoker. 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 He lives at home with his and son. There is a cat in the home. No recent travel or service. Past Drug Use History: None Reported - Past Family History Mother Family Medical History: Cancer Sister(s) Family Medical History: Cancer Brother(s) Family Medical History: Cancer Father Family Medical History: Cancer Medications and Allergies Home Medications Medication Instructions Recorded Confirmed Type Docusate [Colace] 100 mg PO BID 11/19/15 10/04/16 History Levothyroxine Sodium [Synthroid] 88 mcg PO DAILY 11/19/15 10/04/16 History Fluticasone Nasal [place] [Flonase 2 spray EA NOSTRIL DAILY 05/23/16 10/04/16 History Nasal [place]] Multivitamins, Thera [Multivitamin 1 tab PO DAILY 05/23/16 10/04/16 History (formulary)] Prochlorperazine [Compazine] 10 mg PO Q6H PRN 05/23/16 10/04/16 History Acetaminophen Tab [Tylenol Tab] 650 mg PO Q4-6H PRN 10/04/16 10/04/16 History Omeprazole [PriLOSEC] 20 mg PO DAILY 10/04/16 10/04/16 History Allergies Allergy/AdvReac Type Severity Reaction Status Date / Time No Known Allergies Allergy Verified 10/04/16 20:29 Physical Exam Vitals: Vital Signs Temp Pulse Pulse Resp BP BP Pulse Ox 10/05/16 12:33 101.3 F H 10/05/16 12:00 102.9 F H 107 H 18 153/75 100 10/05/16 10:24 99.7 F H 10/05/16 08:14 98 10/05/16 07:57 99 F 10/05/16 04:00 99.1 F 69 18 115/67 97 10/05/16 03:22 18 10/04/16 23:16 18 10/04/16 23:14 98.7 F 10/04/16 20:00 99.2 F 86 18 114/68 96 10/04/16 19:03 99.4 F 96 14 95/62 91 L 10/04/16 18:04 106 H 18 105/64 96 10/04/16 17:44 103 H 18 119/65 97 10/04/16 15:50 98.3 F 108 H 20 132/70 98 Intake and Output 10/04/16 10/05/16 10/05/16 22:59 06:59 14:59 Intake Total 950 236 Balance 950 236 Intake: IV 700 Sodium Chloride 0.9% 1, 700 000 ml @ 100 mls/hr IV . Q10H [facility] Rx#:[id number] Intake, IV Titration 50 Amount Piperacillin-Tazobactam 3 50 .375 gm In Dextrose/Water 1 50ml.bag @ 12.5 mls/hr IVPB Q8HR [facility] Rx#: [id number] Oral 200 236 Other: Voiding Method Toilet Toilet Toilet # Voids 2 Weight 84.368 kg - Constitutional General appearance: average body habitus, cooperative, no acute distress - EENT Eyes: anicteric sclerae, PERRLA, normal appearance ENT: normal oropharynx - Neck Neck: no lymphadenopathy - Respiratory Respiratory: bilateral: CTA - Cardiovascular Rhythm: regular Heart sounds: normal: S1, S2 Abnormal Heart Sounds: no systolic murmur, no diastolic murmur, no rub, no S3 Gallop, no S4 Gallop, no click, no other leg Peripheral Edema: bilateral: None - Gastrointestinal General gastrointestinal: no absent bowel sounds, no decreased bowel sounds, no distended, no hepatomegaly, no hyperactive bowel sounds, normal bowel sounds, no organomegaly, no rigid, no scaphoid, soft, no splenomegaly, no tenderness, no umbilical hernia, no ventral hernia - Integumentary Integumentary: normal - Neurologic Neurologic: CNII-XII intact - Musculoskeletal Musculoskeletal: strength equal bilaterally - Psychiatric Psychiatric: A&O x's 3, appropriate affect, intact judgment & insight Results CBC & Chem 7: 10/05/16 07:06 10/05/16 07:06 Labs: Abnormal Lab Results - Last 24 Hours (Table) 10/04/16 10/04/16 10/04/16 Range/Units 16:50 16:50 16:50 RBC 3.91 L (4.30-5.90) m/uL Hgb 12.1 L (13.0-17.5) gm/dL Hct 36.4 L (39.0-53.0) % RDW 18.4 H (11.5-15.5) % Lymphocytes # 0.4 L (1.0-4.8) k/uL Lymphocytes # (Manual) (1.0-4.8) k/uL Monocytes # (Manual) (0-1.0) k/uL Chloride (98-107) mmol/L Plasma Lactic Acid Paddy (0.7-2.0) mmol/L Total Bilirubin (0.2-1.3) mg/dL AST 295 H (17-59) U/L ALT 241 H (21-72) U/L Alkaline Phosphatase 248 H (38-126) U/L Total Creatine Kinase 35 L (55-170) U/L Total Protein (6.3-8.2) g/dL Albumin (3.5-5.0) g/dL 10/05/16 10/05/16 10/05/16 Range/Units 07:06 07:06 07:06 RBC 3.74 L (4.30-5.90) m/uL Hgb 11.3 L (13.0-17.5) gm/dL Hct 36.3 L (39.0-53.0) % RDW 18.6 H (11.5-15.5) % Lymphocytes # (1.0-4.8) k/uL Lymphocytes # (Manual) 0.12 L (1.0-4.8) k/uL Monocytes # (Manual) 1.46 H (0-1.0) k/uL Chloride 109 H (98-107) mmol/L Plasma Lactic Acid Paddy 3.1 H* (0.7-2.0) mmol/L Total Bilirubin 1.8 H (0.2-1.3) mg/dL AST 119 H (17-59) U/L ALT 161 H (21-72) U/L Alkaline Phosphatase 180 H (38-126) U/L Total Creatine Kinase (55-170) U/L Total Protein 5.5 L (6.3-8.2) g/dL Albumin 3.1 L (3.5-5.0) g/dL Microbiology - Last 24 Hours (Table) 10/04/16 16:50 Urine Culture - Preliminary Urine,Voided Chest x-ray: report reviewed Assessment and Plan (1) Fever Narrative/Plan: ID and GI consulted, most concerning area for infection is biliary stent. Pt is on abx which have been adjusted and GI consult and recommendations pending. Status: Acute (2) Elevated LFTs Narrative/Plan: Pt LFTs were evaluated in the office just about 2 weeks ago with normal values reported, the acute change suspect for biliary obstruction, pending GI consult Status: Acute (3) Ampullary carcinoma Narrative/Plan: Pt last had a treatment on 09/14, plans for chemo holiday and re-imaging in 4-6 weeks. Keep current plan at this time. Status: Chronic (4) Status post chemotherapy, time since less than 4 weeks Narrative/Plan: Pt is on chemo holiday at this time. No side effects or acute hematological toxicities that require intervention at this time. Status: Acute Plan: Pt is ok from a Hem/Onc standpoint for procedures that may be necessary to address his current condition. We are available if there are any questions or concerns.
--- NOTE | 2016-10-05 13:02 | HP ---
DATE OF SERVICE: 10/04/2016 CHIEF COMPLAINTS: Fever and chills. HISTORY OF PRESENT ILLNESS: This 66-year-old gentleman with past medical history of multiple medical problems including carcinoma, also had stents placed x2 at [facility]. The patient is currently complaining of fever, rigors and chills. Patient came to [facility] and admitted for further evaluation and treatment. The LFTs are elevated. There is no history of any headache, loss of consciousness or seizures. The patient is followed in the outpatient setting by Dr. Solorzano as well as Dr. Styles. The patient recently finished course of chemotherapy and the most recent PET scan did not show any obvious abnormalities according to him. There is no history of any hematochezia or melena either. PAST MEDICAL HISTORY: History of cancer, history of testicular cancer, history of tonsillectomy. Medications prior to admission include home medications: 1. Compazine 20 mg q.6. p.r.n 2. Prilosec 20 mg p.o daily. 3. Multivitamins 1 p.o daily. 4. Synthroid 80 mcg p.o daily. 5. Fluticasone 2 sprays daily. 6. Colace 100 mg p.o bid 7. Tylenol 650 q.4-6 p.r.n ALLERGIES: None. FAMILY HISTORY: History of cancer in the family. SOCIAL HISTORY: No history of smoking, no history of alcohol. REVIEW OF SYSTEMS: ENT: No diminished hearing or vision. CARDIOVASCULAR: No angina, no palpitations. RESPIRATORY: No shortness of breath, no cough, no hemoptysis. GI: No nausea. : No dysuria. NERVOUS SYSTEM: No numbness or weakness. ALLERGY/IMMUNOLOGY: No asthma or hayfever. MUSCULOSKELETAL: As mentioned earlier. HEMATOLOGY/ONCOLOGY: As mentioned earlier. ENDOCRINE: Mentioned earlier. CONSTITUTIONAL: As mentioned earlier. DERMATOLOGY: Negative. RHEUMATOLOGY: Negative. PSYCHIATRY: As mentioned earlier. PHYSICAL EXAMINATION: The patient is alert and oriented x3. Pulse 96, blood pressure 95/62, respirations 14, temperature 99.4, pulse ox 92% on room air. HEENT: Conjunctivae normal. Oral mucosa moist. NECK: No jugular venous distention. No carotid bruit. No lymph node enlargement. CARDIOVASCULAR: S1, S2. No S3 or S4. RESPIRATORY: Breath sounds diminished at the bases. Scattered rhonchi and crackles. ABDOMEN: Soft, mild diffuse discomfort. No guarding, no rigidity. No mass palpable. LEGS: No edema, no swelling. NERVOUS SYSTEM: Higher function as mentioned. Moves all four limbs. No focal motor sensory deficits. LYMPHATICS: No lymphadenopathy in the neck, axillae or groin. SKIN: No rash, ulcer or bleeding. Labs at this time show WBC 6, hemoglobin 12.1. LFTs: AST 295, ALT 241, alk phos 248. ASSESSMENT: 1. Fever, rigors, chills, possibly cholangitis with sepsis. 2. History of bile duct malignancy status post stent placement x2. 3. Increased AST, ALT, alkaline phosphatase. 4. Status post chemotherapy. 5. History of thyroid cancer. RECOMMENDATIONS AND DISCUSSION: In this 66-year-old gentleman who presented with multiple complex medical issues, we well monitor the patient closely. Continue the current medications. Continue symptomatic treatment. I would recommend broad-spectrum IV antibiotics with Zosyn and will continue to monitor and follow the cultures. Infectious Disease evaluation. Gastroenterology evaluation. Will follow up the labs on serial basis. Guarded prognosis. Further recommendations to follow. MTDD
[2016-10-05] MEDS: VANCOMYCIN 1,500 MG in SODIUM CHLORIDE 0.9% 250 ML IVPB SCH (14:33)
--- NOTE | 2016-10-05 18:16 | CONS ---
REQUESTING PHYSICIAN: Dr. Dominguez. REASON FOR CONSULTATION: Biliary sepsis. HISTORY OF PRESENT ILLNESS: The patient is a 66-year-old pleasant white male diagnosed with adenocarcinoma of the preampullary area in February 2015 with liver metastasis. The patient initially underwent ERCP with bare metal stent placement at [facility] in February 2015 and towards the end of last year in January he was admitted with stent occlusion and ascending cholangitis. The patient was treated with antibiotics and did well and he underwent repeat ERCP with another metal stent placement at [facility]. Since then he has done well. He was admitted to the hospital because of fever, chills but no abdominal pain, no nausea or vomiting. He came to the emergency room yesterday and was noted to have elevated serum transaminases and because of possible biliary symptoms the patient was started on broad-spectrum antibiotics. This morning he says he is feeling better. He did have some chills this morning. He reports no other symptoms. He was seen by Dr. Spivey yesterday and presently on Zosyn and vancomycin. The patient recently underwent chemotherapy, which ended about three weeks ago. He is scheduled for repeat CT of the abdomen at the end of this month. His past medical history is significant for preampullary adenocarcinoma, liver metastasis, history of ( ) in 2015 and repeat chemo in March until August 2016. PAST SURGICAL HISTORY: Hernia repair, tonsillectomy, ERCP with bare metal stent placement, hemorrhoidectomy, hernia repair. Medications at home include: Flonase, multivitamin, Compazine, Tylenol #3, Prilosec, Colace and Synthroid. SOCIAL HISTORY: No smoking or alcohol use. FAMILY HISTORY: Unremarkable. REVIEW OF SYSTEMS: CARDIOPULMONARY: No chest pain or shortness of breath. GENITOURINARY: No dysuria, hematuria. MUSCULOSKELETAL: Unremarkable. SKIN: Unremarkable. ENDOCRINE: Unremarkable. PSYCHIATRY: Unremarkable. NEUROLOGICAL: Unremarkable. ENT/VISION: Unremarkable. HEMATOLOGY: Unremarkable. ONCOLOGY: As mentioned above. GI: As mentioned above. CONSTITUTIONAL: Fever, chills but no night sweats. PHYSICAL EXAMINATION: He appears comfortable in no apparent distress. Vital signs are stable. T-max is 102.9, today is 99. Pulse 107, blood pressure 150/ 75. ENT: Unremarkable. Conjunctivae pink. Sclerae anicteric. Oral cavity, no lesions. NECK: No JVD or lymph node enlargement. CHEST: Clear to auscultation. HEART: Regular rate and rhythm. ABDOMEN: Soft, nontender, nondistended. Bowel sounds are positive. No organomegaly. EXTREMITIES: No pedal edema. SKIN: No rashes. NEURO: Alert, and oriented x3. No focal deficits. LABS: WBC 6.1, hemoglobin 11.3, platelets 180. Yesterday ALT and AST are 295 and 241 respectively with alkaline phosphatase 248. Today AST and ALT are decreased to 119 and 161. T-bili is up to 1.8 and alkaline phosphatase is 180. IMPRESSION: The patient with history of preampullary adenocarcinoma with liver metastasis diagnosed in February 2015 status post chemotherapy at that time and ERCP with biliary wall stent placement at [facility]. He was admitted a year later with stent occlusion and he had a repeat ERCP with repeat bare metal stent replacement at [facility] towards the end of January 2016. He did well for 9 months and now presents with fever and chills and elevated serum transaminases most consistent with biliary sepsis/ascending cholangitis. His T- bili was normal at the time of admission to the hospital yesterday but today it is up to 1.8. RECOMMENDATIONS: 1. Continue with broad-spectrum IV antibiotics. 2. Will repeat labs in the morning. 3. If he continues to have worsening biochemical parameters and worsening bilirubin, he will need to be transferred to [facility] for metal stent replacement. However, if he continues to do well and his serum transaminases improve we will continue with antibiotics with an outpatient stent replacement in the future. The plan was discussed with the patient. He is agreeable to it. Thank you for this consultation. RIKA
[2016-10-05] MEDS: LORATADINE 10 MG TAB PO PRN (20:39)
--- NOTE | 2016-10-05 21:44 | P.CON ---
Consult Note - . Consult date: 10/05/16 Assessment/Plan:: This is a 66-year-old male who has a past medical history significant for pancreatic cancer currently on chemotherapy under the care of Dr. Dominguez diagnosed in February 2015. Patient received his last chemotherapy 3 weeks ago and is off chemo for this month with plan for repeat scan at the end of the month. Patient complains of sudden onset yesterday of fever, chills, rigors, generalized malaise. He denies any abdominal pain, nausea, vomiting, diarrhea. He denies any dysuria. He does have a cough that's chronic secondary to sinus drainage. He came into [facility] emergency center for evaluation. Chest x-ray showed no acute findings. His white count was at 6.5 and pulse of 108. Patient has received a total 4-1/2 L of IV fluid and lactic acid was 3.1 today. The patient was started on Zosyn and placed on the observation unit with plan for admission to the oncology unit. Liver tests have been elevated but improved from yesterday. Please see the consult note is dictated by nurse practitioner Mrs. Chinyere Rutledge. This pleasant gentleman is known to me from his prior bouts of sepsis related to his pancreatic cancer and obstructive ducts. Now presents with similar presentation for his underlying sepsis. Evidence of an elevated AST ALT there are starting to improve. Total bilirubin has increased mildly. Concerns ongoing obstruction or simply an event related to his sepsis. At this time concerns to recurrent obstruction to his biliary duct. Blood work is being monitored. If he does not show improvement with antibiotic therapy may need to be transferred to the outside hospital for replacement of his metallic biliary duct stent that cannot be done here. Patient may need a course of outpatient intravenous antibiotic therapy to complete the course of treatment of sepsis. An outpatient follow-up with the biliary Center in [place]. We'll request the patient's status is changed to inpatient status given his sepsis present on admission. I agree with evaluation, assessment and plan as dictated by nurse practitioner Mrs. Chinyere Rtuledge.
[2016-10-06] MEDS: VANCOMYCIN 1,500 MG in SODIUM CHLORIDE 0.9% 250 ML IVPB SCH ×2 (01:11→14:27)
[2016-10-06] MEDS: LEVOTHYROXINE 88 MCG TAB PO SCH (06:02)
--- NOTE | 2016-10-06 07:02 | PN ---
DATE OF SERVICE: 10/05/16 This 66 -year-old gentleman who was admitted with fever rigors and chills and features of cholangitis is being closely monitored. The patient on broad spectrum IV antibiotics. Infectious disease and oncology are following the patient closely. The patient had features of biliary sepsis. The most recent cultures are negative. The lab was WBC 6.1, 3.1 improved to 1.2 with hydration and LFTs also elevated. Past medical history reviewed. Review of systems: CARDIOVASCULAR: No angina or palpitations. Respiratory: As mentioned earlier. GI: As mentioned earlier. : No dysuria. Nervous system : No numbness, weakness. Current medications are reviewed and include: 1. Tylenol 650 q6h prn. 2. [place] 5 mg. 3. Xanax 0.5 mg t.i.d. 4. Colace. 5. Lovenox. 6. Flonase. 7. Dilaudid. 8. Synthroid. 10. Zosyn IV. 11. Vancomycin. PHYSICAL EXAMINATION: On exam, the patient is alert and oriented times three. Pulse 86. Blood pressure 127/56. Respiratory rate 18. Temperature 98.9 degrees. T-max 101.3 Pulse ox 97% on room air. HEENT: Conjunctivae normal. Neck: No JVD. CARDIOVASCULAR: S1, S2. Respiratory: Breath sounds diminished at the bases. A few scattered rhonchi. No crackles. Abdomen soft, mild diffuse discomfort. No guarding. No rigidity. No mass palpable. LEGS: No edema. No swelling. 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 LABS: WBC 6.9. Hemoglobin 11.3. Lactic acid 3.1. ASSESSMENT: 1. Fever, rigors, chills, possible cholangitis and biliary sepsis. 2. History of ( ) malignancy status post stent placement times two. 3. Increased AST/ALT, alkaline phosphatase status post chemotherapy. 4. History of thyroid cancer. RECOMMENDATIONS AND DISCUSSION: Recommend to continue the current medications, continue symptomatic treatment, continue broad spectrum IV antibiotics. We will await gastroenterology evaluation and cultures. Continue the IV fluids. Continue sepsis protocol. Guarded prognosis because of multiple medical problems. Further recommendations to follow. MTDD
[2016-10-06] MEDS: FLUTICASONE 50MCG/SPRAY NASAL 16GM EA NOSTRIL SCH (08:25)
[2016-10-06] MEDS: PANTOPRAZOLE 40 MG TABLET PO SCH (08:26)
[2016-10-06] MEDS: MULTIVITAMINS, THERA 1 EACH TAB PO SCH (08:26)
[2016-10-06] MEDS: PIPERACILLIN-TAZOBACTAM 3.375 GM in DEXTROSE/WATER 1 50ML.BAG IVPB SCH ×2 (08:29→16:02)
[2016-10-06 08:33] LABS: Anisocytosis Slight; Basophils % (A) 1 %; CH 31.1; CHCM 32.1; Eosinophils # (A) 0.4 k/uL (0-0.7); Eosinophils % (A) 5 %; HDW 2.87; Hypochromasia Slight; Luc # (Auto) 0.23; Luc % (Auto) 4; Lymphocytes # (A) 0.6 k/uL (1.0-4.8); Lymphocytes % (A) 9 %; MCH 30.5 pg (25.0-35.0); MCHC 31.3 g/dL (31.0-37.0); MCV 97.4 fL (80.0-100.0); Macrocytosis Slight; Monocytes # (A) 0.6 k/uL (0-1.0); Monocytes % (A) 9 %; Neutrophils # (A) 4.7 k/uL (1.3-7.7); Neutrophils % (A) 72 %; RDW 19.1 % (11.5-15.5); WBC 6.5 k/uL (3.8-10.6); WBC (Perox) 6.95
[2016-10-06 08:41] LABS: ALT 109 U/L (21-72); AST 60 U/L (17-59); Alkaline Phosphatase 182 U/L (38-126); Anion Gap 6 mmol/L; Blood Urea Nitrogen 7 mg/dL (9-20); Calcium 8.7 mg/dL (8.4-10.2); Carbon Dioxide 24 mmol/L (22-30); Chloride 109 mmol/L (98-107); Glucose 94 mg/dL (74-99); Non-African American GFR(MDRD) >60 (>60 ml/min/1.73 sqM); Potassium 3.7 mmol/L (3.5-5.1); Sodium 139 mmol/L (137-145); Total Bilirubin 3.7 mg/dL (0.2-1.3); Total Protein 5.6 g/dL (6.3-8.2)
[2016-10-06] MEDS: LORATADINE 10 MG TAB PO PRN (09:05)
--- NOTE | 2016-10-06 10:47 | P.PN ---
Subjective Principal diagnosis: Ascending cholangitis 66-year-old gentleman with a history periampullary carcinoma with liver metastasis presents with fever and elevated liver enzymes with history of biliary stent January 2016. Objective - Vital Signs Vital signs: Vital Signs Temp 98.3 F 10/06/16 08:00 Pulse 79 10/06/16 08:00 Resp 18 10/06/16 08:00 BP 131/69 10/06/16 08:00 Pulse Ox 97 10/06/16 08:00 Intake & Output 10/05/16 10/06/16 10/06/16 18:59 06:59 18:59 Intake Total 736 650 400 Balance 736 650 400 Intake: Intake, IV Titration 500 Amount Piperacillin-Tazobactam 3 100 .375 gm In Dextrose/Water 1 50ml.bag @ 12.5 mls/hr IVPB Q8HR [facility] Rx#: [id number] Sodium Chloride 0.9% 2, 150 000 ml @ 999 mls/hr IV . Q2H1M [facility] Rx#:[id number] Vancomycin 1,500 mg In 250 Sodium Chloride 0.9% 250 ml @ 125 mls/hr IVPB Q12H [facility] Rx#:[id number] Oral 736 150 400 Other: Voiding Method Toilet Toilet # Voids 2 - Exam General appearance: The patient is alert, oriented, in no acute distress. HET: Head is normocephalic and atraumatic. Pupils are equal and reactive. Oropharynx is clear without lesions. Neck: Supple without lymphadenopathy. Trachea midline. Heart: S1 S2. Regular rate and rhythm. Lungs: No crackles or wheezes are heard. Abdomen: Soft, nontender, nondistended with bowel sounds. No peritoneal signs. No palpable organomegaly or masses. Extremities: Normal skin color and turgor. No cyanosis, rash, ulceration, clubbing, or edema. Radial and pedal pulses are 2/4 bilaterally. Neurological: No focal deficits. Strength and sensation are grossly intact. - Labs CBC & Chem 7: 10/06/16 08:02 10/06/16 08:02 Labs: Abnormal Lab Results - Last 24 Hours (Table) 10/06/16 10/06/16 Range/Units 08:02 08:02 RBC 3.60 L (4.30-5.90) m/uL Hgb 11.0 L (13.0-17.5) gm/dL Hct 35.0 L (39.0-53.0) % RDW 19.1 H (11.5-15.5) % Lymphocytes # 0.6 L (1.0-4.8) k/uL Chloride 109 H (98-107) mmol/L BUN 7 L (9-20) mg/dL Total Bilirubin 3.7 H (0.2-1.3) mg/dL AST 60 H (17-59) U/L ALT 109 H (21-72) U/L Alkaline Phosphatase 182 H (38-126) U/L Total Protein 5.6 L (6.3-8.2) g/dL Albumin 3.1 L (3.5-5.0) g/dL Microbiology - Last 24 Hours (Table) 10/04/16 16:50 Blood Culture - Preliminary Blood No Growth after 24 hours 10/04/16 16:50 Urine Culture - Final Urine,Voided Assessment and Plan Plan: Impression: 1. Biliary sepsis ascending cholangitis with worsening hyperbilirubinemia. 2. History of periampullary carcinoma with liver metastasis biliary stent January 2016. Recommendations: 1. Recommend transfer to tertiary care center [facility] for further evaluation care secondary to worsening biochemical liver chemistries. Case discussed with oncology BAR[employer] DEDENTING MACHINE OPERATOR Katharina Roe. Assessment and plan of care discussed with Dr. Taveras.
[2016-10-06] MEDS: NYSTATIN 100,000 UNIT/ML SUSP 500,000 UNIT/5 ML CUP PO SCH ×2 (13:10→13:11)
[2016-10-06] MEDS: ENOXAPARIN 40 MG/0.4 ML SYRINGE SQ SCH (13:10)
[2016-10-06] MEDS: DOCUSATE 100 MG CAP PO SCH (13:10)
[2016-10-06 15:48] VITALS: BP 126/76; PULSE 95; RESP 17; TEMP 98.3
== END 2016-10-06 16:00 | disposition short-term general hospital (02) | DRG 872 ==
LOC: EC 15:48 → 3OBS 19:01 → OBSVTOIN 10-05 09:21
PROVIDERS: ADMIT Hospitalist; ATTEND Hospitalist
DX: A41.9 Sepsis, unspecified organism (principal); K83.0 Cholangitis; C25.9 Malignant neoplasm of pancreas, unspecified; C78.7 Secondary malignant neoplasm of liver and intrahepatic bile duct; Z79.899 Other long term (current) drug therapy; Z80.9 Family history of malignant neoplasm, unspecified; Z85.47 Personal history of malignant neoplasm of testis; Z85.850 Personal history of malignant neoplasm of thyroid; Z92.21 Personal history of antineoplastic chemotherapy
CPT/HCPCS: 36415; 71020; 80053; 81003; 82550; 82553; 83605; 83690; 83735; 84100; 84484; 85025; 85610; 85730; 87040; 87086; 93005; 94760; 96361; 96374; 96375; 99285

== ENCOUNTER → 2016-10-23 | Outpatient (CLI) | payer OTHER, MEDICARE, BC ==
[2016-10-23 13:56] LABS: Blood Urea Nitrogen 16 mg/dL (9-20); Non-African American GFR(MDRD) >60 (>60 ml/min/1.73 sqM)
--- NOTE | 2016-10-23 15:31 | CT ---
EXAMINATION TYPE: CT ChestAbdPelvis w con DATE OF EXAM: 10/23/2016 COMPARISON: CT cap August 24, 2016 HISTORY: Advanced pancreatic cancer progress study CT DLP: 1201.9 mGycm. Automated Exposure Control for Dose Reduction was Utilized. CONTRAST: CT scan of the thorax, abdomen and pelvis is performed with IV Contrast, patient injected with 100 mL of Omnipaque 300. FINDINGS: LUNGS: Elevated left hemidiaphragm is redemonstrated. The lungs are grossly clear, there is no concer hank parenchymal mass or nodule identified. There is no pleural effusion or pneumothorax seen. The tracheobronchial tree is patent. MEDIASTINUM: There are no greater than 1 cm hilar or mediastinal lymph nodes. No cardiomegaly or pe ricardial effusion is seen. OTHER: There is stable left-sided subclavian Mediport catheter. There is stable small degree of bilat eral gynecomastia. LIVER/GB: There is persistent pneumobilia and internal biliary metallic stent. Fluid or soft tissue d ensity now occupies stent lumen versus air density predominantly seen on prior. There is however no n ew suspicious intrahepatic biliary dilatation suggesting there is still patency. PANCREAS: There is persistent heterogeneous prominence of the pancreas at level of inferior pancreati c head and uncinate process junction near axial image 39 which continues to appear more prominent barb jasmin prior study. Underlying mass is not excluded. There is however no suspicious pancreatic ductal di latation on current study as duct is slightly less prominent in the head versus prior exam. SPLEEN: A 1.3 cm splenule anterior to spleen on axial image 20 is redemonstrated ADRENALS: Left adrenal gland is felt surgically absent with surgical clips seen at this level near ax ial image 29. KIDNEYS: No significant abnormality is seen. BOWEL: No significant abnormality is seen. GENITAL ORGANS: Some central zone calcifications are seen in normal size prostate gland. Scattered pe lvic phleboliths are redemonstrated. LYMPH NODES: No greater than 1cm abdominal or pelvic lymph nodes are appreciated. Numerous surgical c lips from prior lymph node dissection in the bilateral retroperitoneum causes streak artifact making evaluation slightly suboptimal. OSSEOUS STRUCTURES: There is disc space narrowing L3-L4 and L4-L5 levels. There is mild multilevel sp urring in the thoracolumbar spine. There is facet arthropathy lower lumbar levels. OTHER: No significant additional abnormality is seen. IMPRESSION: 1. Loss of IntraStent air in internal biliary metallic stent suggests recurrent tumor and/or obstruct ing secretions. There is no new intrahepatic biliary dilatation to suggest complete stent obstruction . 2. Slightly more lobulated prominence of the inferior pancreatic head without definitive mass identif ied can be followed.
== END | disposition home or self-care (01) ==
LOC: RADPROMAIN 13:03
PROVIDERS: ATTEND Internal Medicine Hematology & Oncology
DX: C24.9 Malignant neoplasm of biliary tract, unspecified (principal); Z96.89 Presence of other specified functional implants
CPT/HCPCS: 82565; 84520; 71260; 74177; Q9967; J1642

== ENCOUNTER 2016-12-06 16:53 | Inpatient (IN) | payer OTHER, MEDICARE, BC ==
[2016-12-06] MEDS ORDERED: RX INFO: IV CONTRAST WAS GIVEN 1 EACH MISC MISCELLANE PRN (17:37)
[2016-12-06] MEDS ORDERED: ACETAMINOPHEN TAB 500 MG TAB PO STA (17:37)
--- NOTE | 2016-12-06 17:43 | ED ---
Fever HPI - General Chief Complaint: Fever Stated Complaint: Fever-cancer pt Time Seen by Provider: 12/06/16 17:27 Source: patient, RN notes reviewed Mode of arrival: ambulatory Limitations: no limitations - History of Present Illness Initial Comments: This a 66-year-old male presents emergency Department chief complaint fever. Patient states she developed a fever today. Patient states he has pancreatic cancer and recently had a stent placed in his biliary duct on 12/03/16 at [facility] by Dr. Mcmahan. Patient states he had 2 plastic stents in there and states those removed and a coated stent was placed. Patient states he had some discomfort from the procedure but states it was improving until today he developed the shaking chills. Patient denies any cough, sore throat, ear pain, nausea, vomiting, diarrhea constipation. Denies any dysuria hematuria. Patient did notify his oncologist who recommended ongoing emergency department. Patient states that he was on chemo up until August of this year in which they discontinued it secondary to PET scan showing reduction of lymph nodes. Patient states he has not had a Whipple procedure. Patient states he did take some Tylenol approximately 6 hours ago. Patient states she is not allowed to take ibuprofen at this time. Patient states that he was placed on Cipro after the procedure but he is unsure why. He states she's had stents placed several times but was never discharged on antibiotics and police had recurrent sepsis from previous stents in cholangitis. - Related Data Home Medications Medication Instructions Recorded Confirmed Docusate [Colace] 100 mg PO BID 11/19/15 12/06/16 Levothyroxine Sodium [Synthroid] 88 mcg PO DAILY 11/19/15 12/06/16 Fluticasone Nasal [place] [Flonase 2 spray EA NOSTRIL DAILY 05/23/16 12/06/16 Nasal [place]] Multivitamins, Thera [Multivitamin 1 tab PO DAILY 05/23/16 12/06/16 (formulary)] Acetaminophen Tab [Tylenol Tab] 650 mg PO Q4-6H PRN 10/04/16 12/06/16 Omeprazole [PriLOSEC] 20 mg PO DAILY 10/04/16 12/06/16 Loratadine [Alavert] 10 mg PO DAILY PRN 12/06/16 12/06/16 Allergies Allergy/AdvReac Type Severity Reaction Status Date / Time No Known Allergies Allergy Verified 12/06/16 18:19 Review of Systems ROS Statement: Those systems with pertinent positive or pertinent negative responses have been documented in the HPI. ROS Other: All systems not noted in ROS Statement are negative. Past Medical History Past Medical History: Cancer, Thyroid Disorder Additional Past Medical History / Comment(s): TESTICULAR CA 1979, pancreatic ca diagnosed February 2015, sepsis History of Any Multi-Drug Resistant Organisms: None Reported Past Surgical History: Hernia Repair, Tonsillectomy Additional Past Surgical History / Comment(s): 1979 LT TESTICLE AND LYMPHNODES REMOVED ALONG SPINE,RT ING HERNIA REPAIR X 3 WITH MESH,HEMORRHOIDECT, COLONOSCOPY titanum stent in pancreas in 02/2015 and restent 01/2016, smart port. Past Anesthesia/Blood Transfusion Reactions: No Reported Reaction Past Psychological History: No Psychological Hx Reported Smoking Status: Never smoker Past Alcohol Use History: None Reported Past Drug Use History: None Reported - Past Family History Mother Family Medical History: Cancer Sister(s) Family Medical History: Cancer Brother(s) Family Medical History: Cancer Father Family Medical History: Cancer General Exam Limitations: no limitations General appearance: alert, in no apparent distress Head exam: Present: atraumatic, normocephalic, normal inspection Eye exam: Present: normal appearance, PERRL, EOMI. Absent: scleral icterus, conjunctival injection, periorbital swelling ENT exam: Present: normal exam, normal oropharynx, mucous membranes moist, TM's normal bilaterally, normal external ear exam Neck exam: Present: normal inspection, full ROM. Absent: tenderness, meningismus, lymphadenopathy Respiratory exam: Present: normal lung sounds bilaterally. Absent: respiratory distress, wheezes, rales, rhonchi, stridor Cardiovascular Exam: Present: normal rhythm, tachycardia, normal heart sounds. Absent: systolic murmur, diastolic murmur, rubs, gallop, clicks GI/Abdominal exam: Present: soft, tenderness (Mild right upper quadrant tenderness), normal bowel sounds. Absent: distended, guarding, rebound, rigid Back exam: Absent: CVA tenderness (R), CVA tenderness (L) Neurological exam: Present: alert, oriented X3, CN II-XII intact Skin exam: Present: warm, dry, intact, normal color. Absent: rash Course Vital Signs 12/06/16 12/06/16 12/06/16 16:55 17:43 18:16 Temperature 102.1 F H 100.7 F H Pulse Rate 111 H 102 H 104 H Respiratory 18 18 16 Rate Blood Pressure 143/82 149/86 136/79 O2 Sat by Pulse 97 96 95 Oximetry 12/06/16 12/06/16 12/06/16 19:03 19:39 19:59 Temperature 100.9 F H 101.2 F H Pulse Rate 105 H 96 84 Respiratory 16 18 18 Rate Blood Pressure 141/71 137/65 135/67 O2 Sat by Pulse 98 97 96 Oximetry 12/06/16 20:29 Temperature Pulse Rate 85 Respiratory 18 Rate Blood Pressure 124/71 O2 Sat by Pulse 96 Oximetry Medical Decision Making - Medical Decision Making 66-year-old male presented for fever. There is no clear source for his fever at this time. Patient be started on broad-spectrum antibiotics Zosyn and Levaquin for concerns of recent surgery for his stent removal and placement. CT did not reveal any fluid collections. Patient be held for blood cultures and further evaluation. - Lab Data Result diagrams: 12/06/16 18:15 12/06/16 18:15 Lab Results 12/06/16 12/06/16 12/06/16 Range/Units 17:30 18:15 18:15 WBC 8.5 (3.8-10.6) k/uL RBC 4.01 L (4.30-5.90) m/uL Hgb 11.5 L (13.0-17.5) gm/dL Hct 36.2 L (39.0-53.0) % MCV 90.2 D (80.0-100.0) fL MCH 28.7 (25.0-35.0) pg MCHC 31.8 (31.0-37.0) g/dL RDW 16.0 H (11.5-15.5) % Plt Count 172 (150-450) k/uL Neutrophils % 82 % Lymphocytes % 7 % Monocytes % 9 % Eosinophils % 0 % Basophils % 0 % Neutrophils # 7.0 (1.3-7.7) k/uL Lymphocytes # 0.6 L (1.0-4.8) k/uL Monocytes # 0.8 (0-1.0) k/uL Eosinophils # 0.0 (0-0.7) k/uL Basophils # 0.0 (0-0.2) k/uL PT (9.0-12.0) sec INR (<1.2) APTT (22.0-30.0) sec Sodium 138 (137-145) mmol/L Potassium 4.2 (3.5-5.1) mmol/L Chloride 105 (98-107) mmol/L Carbon Dioxide 22 (22-30) mmol/L Anion Gap 11 mmol/L BUN 18 (9-20) mg/dL Creatinine 1.00 (0.66-1.25) mg/dL Est GFR (MDRD) Af Amer >60 (>60 ml/min/1.73 sqM) Est GFR (MDRD) Non-Af >60 (>60 ml/min/1.73 sqM) Glucose 101 H (74-99) mg/dL Plasma Lactic Acid Paddy (0.7-2.0) mmol/L Calcium 9.3 (8.4-10.2) mg/dL Total Bilirubin 0.5 (0.2-1.3) mg/dL AST 186 H (17-59) U/L ALT 165 H (21-72) U/L Alkaline Phosphatase 178 H (38-126) U/L Total Protein 6.7 (6.3-8.2) g/dL Albumin 3.8 (3.5-5.0) g/dL Urine Color Light Yellow Urine Appearance Clear (Clear) Urine pH 5.0 (5.0-8.0) Ur Specific [place] 1.010 (1.001-1.035) Urine Protein Negative (Negative) Urine Glucose (UA) Negative (Negative) Urine Ketones Negative (Negative) Urine Blood Negative (Negative) Urine Nitrite Negative (Negative) Urine Bilirubin Negative (Negative) Urine Urobilinogen <2.0 (<2.0) mg/dL Ur Leukocyte Esterase Negative (Negative) Influenza Type A RNA (Not Detectd) Influenza Type B (PCR) (Not Detectd) 12/06/16 12/06/16 12/06/16 Range/Units 18:15 18:15 18:15 WBC (3.8-10.6) k/uL RBC (4.30-5.90) m/uL Hgb (13.0-17.5) gm/dL Hct (39.0-53.0) % MCV (80.0-100.0) fL MCH (25.0-35.0) pg MCHC (31.0-37.0) g/dL RDW (11.5-15.5) % Plt Count (150-450) k/uL Neutrophils % % Lymphocytes % % Monocytes % % Eosinophils % % Basophils % % Neutrophils # (1.3-7.7) k/uL Lymphocytes # (1.0-4.8) k/uL Monocytes # (0-1.0) k/uL Eosinophils # (0-0.7) k/uL Basophils # (0-0.2) k/uL PT 10.4 (9.0-12.0) sec INR 1.0 (<1.2) APTT 25.2 (22.0-30.0) sec Sodium (137-145) mmol/L Potassium (3.5-5.1) mmol/L Chloride (98-107) mmol/L Carbon Dioxide (22-30) mmol/L Anion Gap mmol/L BUN (9-20) mg/dL Creatinine (0.66-1.25) mg/dL Est GFR (MDRD) Af Amer (>60 ml/min/1.73 sqM) Est GFR (MDRD) Non-Af (>60 ml/min/1.73 sqM) Glucose (74-99) mg/dL Plasma Lactic Acid Paddy 1.3 (0.7-2.0) mmol/L Calcium (8.4-10.2) mg/dL Total Bilirubin (0.2-1.3) mg/dL AST (17-59) U/L ALT (21-72) U/L Alkaline Phosphatase (38-126) U/L Total Protein (6.3-8.2) g/dL Albumin (3.5-5.0) g/dL Urine Color Urine Appearance (Clear) Urine pH (5.0-8.0) Ur Specific [place] (1.001-1.035) Urine Protein (Negative) Urine Glucose (UA) (Negative) Urine Ketones (Negative) Urine Blood (Negative) Urine Nitrite (Negative) Urine Bilirubin (Negative) Urine Urobilinogen (<2.0) mg/dL Ur Leukocyte Esterase (Negative) Influenza Type A RNA Not Detected (Not Detectd) Influenza Type B (PCR) Not Detected (Not Detectd) 10/15/17 20:39 EKG performed at 17:44 sinus tachycardia with a rate of 103 MO interval 144 QRS 88 QT/QTC 332/434 Disposition Clinical Impression: Fever, Elevated LFTs, History of biliary duct stent placement Disposition: ADMITTED IP TO THIS HOSP Condition: Fair Referrals: Shelby Styles MD [Primary Care Provider] - 1-2 days
[2016-12-06] MEDS: SODIUM CHLORIDE 0.9% 500 ML IV SCH ×2 (18:12→20:15)
--- NOTE | 2016-12-06 18:37 | XR ---
EXAMINATION TYPE: XR chest 2V DATE OF EXAM: 12/06/2016 COMPARISON: Chest x-ray October 04, 2016 CT cap October 23, 2016 HISTORY: History of pancreatic cancer presents with fever. TECHNIQUE: Frontal and lateral views of the chest are obtained. FINDINGS: There is stable left internal jugular Mediport catheter. There is redemonstration of elevat ed left hemidiaphragm. There is no focal air space opacity, pleural effusion, or pneumothorax seen. The cardiac silhouette size is within normal limits. The osseous structures are intact. There is re demonstration of extensive surgical change or clips in the posterior upper abdomen with common bile d uct metallic stent. IMPRESSION: No suspicious new acute pulmonary process.
[2016-12-06 18:39] LABS: Basophils % (A) 0 %; CH 29.1; CHCM 32.4; Eosinophils % (A) 0 %; HCT 36.2 % (39.0-53.0); HDW 2.77; HGB 11.5 gm/dL (13.0-17.5); Luc % (Auto) 1; Lymphocytes # (A) 0.6 k/uL (1.0-4.8); Lymphocytes % (A) 7 %; MCH 28.7 pg (25.0-35.0); MCHC 31.8 g/dL (31.0-37.0); Mean Platelet Volume 7.3; Monocytes # (A) 0.8 k/uL (0-1.0); Monocytes % (A) 9 %; Neutrophils % (A) 82 %; RBC 4.01 m/uL (4.30-5.90); WBC 8.5 k/uL (3.8-10.6); WBC (Perox) 8.84
[2016-12-06 18:39] LABS: Appearance,Urine Clear (Clear); Bilirubin,Urine Negative (Negative); Glucose,Urine (UA) Negative (Negative); Ketones,Urine Negative (Negative); Leukocyte Esterase,Urine Negative (Negative); Nitrite,Urine Negative (Negative); Protein,Urine Negative (Negative); UA Billing (MACRO vs. MICRO) CHEM; Urobilinogen,Urine <2.0 mg/dL (<2.0)
[2016-12-06 18:47] LABS: MCV 90.2 fL (80.0-100.0)
[2016-12-06 18:55] LABS: ALT 165 U/L (21-72); AST 186 U/L (17-59); Alkaline Phosphatase 178 U/L (38-126); Anion Gap 11 mmol/L; Blood Urea Nitrogen 18 mg/dL (9-20); Calcium 9.3 mg/dL (8.4-10.2); Carbon Dioxide 22 mmol/L (22-30); Chloride 105 mmol/L (98-107); Glucose 101 mg/dL (74-99); Non-African American GFR(MDRD) >60 (>60 ml/min/1.73 sqM); Partial Thromboplastin Time 25.2 sec (22.0-30.0); Potassium 4.2 mmol/L (3.5-5.1); Prothrombin Time 10.4 sec (9.0-12.0); Sodium 138 mmol/L (137-145); Total Bilirubin 0.5 mg/dL (0.2-1.3); Total Protein 6.7 g/dL (6.3-8.2)
[2016-12-06] MEDS ORDERED: IBUPROFEN 800 MG TAB PO STA (20:11)
--- NOTE | 2016-12-06 20:19 | CT ---
EXAMINATION TYPE: CT abdomen pelvis w con DATE OF EXAM: 12/06/2016 COMPARISON: CT chest abdomen and pelvis from October 23, 2016 HISTORY: fever/pancreatic stent replaced 1 wk ago.hx pancreatic ca. CT DLP: 989.60 mGycm, Automated Exposure Control for Dose Reduction was Utilized. CONTRAST: CT scan of the abdomen and pelvis is performed with oral and with IV Contrast, patient injected with 100 mL of Omnipaque 300. FINDINGS: LUNG BASES: Tip of Mediport catheter in SVC is noted. Elevated left hemidiaphragm is redemonstrated. LIVER/GB: There is redemonstration of metallic stent in common bile duct which appears patent or air- filled. Pneumobilia is redemonstrated. Mild central intrahepatic ductal dilatation is stable. Possibl e small dependent gallstone on axial image 30 is again seen. PANCREAS: There is interval removal of internal pancreatic drainage catheter or ductal stent. SPLEEN: No significant abnormality is seen. ADRENALS: No significant abnormality is seen. KIDNEYS: No significant abnormality is seen. BOWEL: No significant abnormality is seen. PROSTATE/SEMINAL VESICLES: Scattered pelvic phleboliths are redemonstrated. LYMPH NODES: No greater than 1cm abdominal or pelvic lymph nodes are clearly appreciated. Innumerabl e surgical clips in the retroperitoneum of the abdomen extending along iliac vessels cause streak art ifact making evaluation slightly suboptimal. OSSEOUS STRUCTURES: Spine redemonstrates multilevel spurring. There is disc space narrowing L4-L5 lev el. OTHER: No significant additional abnormality is seen. IMPRESSION: New metallic biliary stent is widely patent. Interval removal of pancreatic stent. No jasmin picious new focal fluid collection or source of fever identified
[2016-12-06] MEDS ORDERED: LEVOFLOXACIN 750MG-D5W PMX 750 MG in DEXTROSE/WATER 1 150ML.BAG IVPB STA (20:31)
[2016-12-06] MEDS ORDERED: PIPERACILLIN-TAZOBACTAM 3.375 GM in DEXTROSE/WATER 1 50ML.BAG IVPB STA (20:31)
[2016-12-06] MEDS ORDERED: IBUPROFEN 600 MG TAB PO PRN (20:43)
[2016-12-06] MEDS ORDERED: NALOXONE 0.4 MG/ML 1 ML VIAL IV PRN (20:43)
[2016-12-06] MEDS ORDERED: ACETAMINOPHEN TAB 325 MG TAB PO PRN (20:43)
[2016-12-06] MEDS ORDERED: HYDROmorphone 0.5 MG/0.5 ML SYRINGE IVP PRN (20:43)
[2016-12-06] MEDS ORDERED: ONDANSETRON 4 MG/2 ML VIAL IVP PRN (20:43)
[2016-12-06] MEDS: SODIUM CHLORIDE 0.9% 1,000 ML IV SCH (20:47)
[2016-12-07] MEDS: PIPERACILLIN-TAZOBACTAM 3.375 GM in DEXTROSE/WATER 1 50ML.BAG IVPB SCH ×3 (04:47→21:33)
[2016-12-07 09:24] LABS: Basophils % (A) 0 %; CH 27.6; CHCM 30.5; Eosinophils # (A) 0.1 k/uL (0-0.7); Eosinophils % (A) 3 %; HCT 34.2 % (39.0-53.0); HDW 2.93; HGB 10.4 gm/dL (13.0-17.5); Hypochromasia Marked; Luc # (Auto) 0.18; Luc % (Auto) 4; Lymphocytes # (A) 0.5 k/uL (1.0-4.8); Lymphocytes % (A) 11 %; MCH 27.6 pg (25.0-35.0); MCHC 30.4 g/dL (31.0-37.0); MCV 90.7 fL (80.0-100.0); Mean Platelet Volume 6.7; Monocytes # (A) 0.5 k/uL (0-1.0); Monocytes % (A) 11 %; Neutrophils # (A) 3.2 k/uL (1.3-7.7); Neutrophils % (A) 70 %; RBC 3.77 m/uL (4.30-5.90); RDW 14.4 % (11.5-15.5); WBC 4.6 k/uL (3.8-10.6); WBC (Perox) 4.64
[2016-12-07 09:43] LABS: ALT 155 U/L (21-72); AST 124 U/L (17-59); Alkaline Phosphatase 132 U/L (38-126); Anion Gap 9 mmol/L; Blood Urea Nitrogen 13 mg/dL (9-20); Calcium 8.8 mg/dL (8.4-10.2); Carbon Dioxide 24 mmol/L (22-30); Chloride 108 mmol/L (98-107); Glucose 118 mg/dL (74-99); Non-African American GFR(MDRD) >60 (>60 ml/min/1.73 sqM); Potassium 4.1 mmol/L (3.5-5.1); Sodium 141 mmol/L (137-145); Total Bilirubin 0.8 mg/dL (0.2-1.3); Total Protein 5.8 g/dL (6.3-8.2)
[2016-12-07] MEDS: SODIUM CHLORIDE 0.9% 1,000 ML IV SCH (10:50)
[2016-12-07] MEDS ORDERED: LORATADINE 10 MG TAB PO PRN (10:57)
[2016-12-07] MEDS: PANTOPRAZOLE 40 MG TABLET PO SCH (12:51)
[2016-12-07] MEDS: FLUTICASONE 50MCG/SPRAY NASAL 16GM EA NOSTRIL SCH (12:51)
[2016-12-07] MEDS: LEVOTHYROXINE 88 MCG TAB PO SCH (12:51)
[2016-12-07] MEDS: MULTIVITAMINS, THERA 1 EACH TAB PO SCH (12:51)
[2016-12-07] MEDS: DOCUSATE 100 MG CAP PO SCH ×2 (12:52→21:33)
--- NOTE | 2016-12-07 13:22 | P.HPIM ---
History of Present Illness 67-year-old gentleman came in with complaints of fever chills, and generalized body aches. Patient's influenza testing is negative patient CVA is within normal limits and chest x-ray did not show any pneumonic process. Patient had a biliary stent that was replaced on , last . Patient is found to have elevated liver enzymes are coming down CAT scan of the abdomen did not show any biliary leak, I did show patent stents. Patient at this point of time is feeling much better denied any nausea, vomiting, cough, dysuria, photophobia. Patient denied any abdominal pain is complaining of some discomfort under the rib cage area since his biliary stent replacement Review of Systems REVIEW OF SYSTEMS: CONSTITUTIONAL: As mentioned in HPI HEENT: No recent visual problems or hearing problems. Denied any sore throat. CARDIOVASCULAR: No chest pain, orthopnea, PND, no palpitations, no syncope. PULMONARY: No shortness of breath, no cough, no hemoptysis. GASTROINTESTINAL: No diarrhea, no nausea, no vomiting, no abdominal pain. Normoactive bowel sounds. NEUROLOGICAL: No headaches, no weakness, no numbness. HEMATOLOGICAL: Denies any bleeding or petechiae. GENITOURINARY: Denies any burning micturition, frequency, or urgency. MUSCULOSKELETAL/RHEUMATOLOGICAL: Denies any joint pain, swelling, or any muscle pain. ENDOCRINE: Denies any polyuria or polydipsia. The rest of the 14-point review of systems is negative. Past Medical History Past Medical History: Cancer, Thyroid Disorder Additional Past Medical History / Comment(s): Testicular cancer, pancreatic cancer (diagnosed February 2015), sepsis, hypothyroid. History of Any Multi-Drug Resistant Organisms: None Reported Past Surgical History: Hernia Repair, Tonsillectomy Additional Past Surgical History / Comment(s): 1979 left testicle + lymph nodes removed along spine, right inguinal hernia repair x3 with mesh, hemorrhoidectomy (2011), colonoscopy (Jan 2015), titanium stent in pancreas (2015 @ [facility]), restent in 01/2016 ([facility]), smart port. Past Anesthesia/Blood Transfusion Reactions: No Reported Reaction Past Psychological History: No Psychological Hx Reported Smoking Status: Never smoker Past Alcohol Use History: None Reported Additional Past Alcohol Use History / Comment(s): Patient is a lifelong nonsmoker. 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 He lives at home with his and son. There is a cat in the home. No recent travel or service. Past Drug Use History: None Reported Additional Drug Use History / Comment(s): Patient states he has had a lifelong nonsmoker. 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 He lives at home with his and son. There is a cat in the home. No recent travel or service. - Past Family History Mother Family Medical History: Cancer Additional Family Medical History / Comment(s): Cancer x 3, lived until age 89. Sister(s) Family Medical History: Cancer Additional Family Medical History / Comment(s): Breast cancer. Brother(s) Family Medical History: Cancer Father Family Medical History: Cancer Additional Family Medical History / Comment(s): Colon/bladder cancer x 3, at 94 Medications and Allergies Home Medications Medication Instructions Recorded Confirmed Type Docusate [Colace] 100 mg PO BID 11/19/15 12/06/16 History Levothyroxine Sodium [Synthroid] 88 mcg PO DAILY 11/19/15 12/06/16 History Fluticasone Nasal [place] [Flonase 2 spray EA NOSTRIL DAILY 05/23/16 12/06/16 History Nasal [place]] Multivitamins, Thera [Multivitamin 1 tab PO DAILY 05/23/16 12/06/16 History (formulary)] Acetaminophen Tab [Tylenol Tab] 650 mg PO Q4-6H PRN 10/04/16 12/06/16 History Omeprazole [PriLOSEC] 20 mg PO DAILY 10/04/16 12/06/16 History Loratadine [Alavert] 10 mg PO DAILY PRN 12/06/16 12/06/16 History Allergies Allergy/AdvReac Type Severity Reaction Status Date / Time No Known Allergies Allergy Verified 12/06/16 18:19 Physical Exam Vitals: Vital Signs Temp Pulse Pulse Resp BP BP BP 12/07/16 07:00 97.2 F L 72 16 133/73 12/06/16 22:40 98.4 F 74 18 128/62 12/06/16 22:27 98.3 F 79 16 126/75 12/06/16 21:22 97.5 F L 81 18 127/67 12/06/16 20:48 99.4 F 12/06/16 20:29 85 18 124/71 12/06/16 19:59 84 18 135/67 12/06/16 19:39 101.2 F H 96 18 137/65 12/06/16 19:03 100.9 F H 105 H 16 141/71 12/06/16 18:16 100.7 F H 104 H 16 136/79 12/06/16 17:43 102 H 18 149/86 12/06/16 16:55 102.1 F H 111 H 18 143/82 Pulse Ox 12/07/16 07:00 98 12/06/16 22:40 97 12/06/16 22:27 97 12/06/16 21:22 98 12/06/16 20:48 12/06/16 20:29 96 12/06/16 19:59 96 12/06/16 19:39 97 12/06/16 19:03 98 12/06/16 18:16 95 12/06/16 17:43 96 12/06/16 16:55 97 Intake and Output 12/06/16 12/07/16 12/07/16 22:59 06:59 14:59 Other: Voiding Method Toilet # Voids 1 Weight 87.09 kg PHYSICAL EXAMINATION: GENERAL: The patient is alert and oriented x3, not in any acute distress. Well developed, well nourished. HEENT: Pupils are round and equally reacting to light. EOMI. No scleral icterus. No conjunctival pallor. Normocephalic, atraumatic. No pharyngeal erythema. No thyromegaly. CARDIOVASCULAR: S1 and S2 present. No murmurs, rubs, or gallops. PULMONARY: Chest is clear to auscultation, no wheezing or crackles. ABDOMEN: Soft, nontender, nondistended, normoactive bowel sounds. No palpable organomegaly. MUSCULOSKELETAL: No joint swelling or deformity. EXTREMITIES: No cyanosis, clubbing, or pedal edema. NEUROLOGICAL: Gross neurological examination did not reveal any focal deficits. SKIN: No rashes. Results CBC & Chem 7: 12/07/16 09:02 12/07/16 09:02 Labs: Abnormal Lab Results - Last 24 Hours (Table) 12/06/16 12/06/16 12/07/16 Range/Units 18:15 18:15 09:02 RBC 4.01 L 3.77 L (4.30-5.90) m/uL Hgb 11.5 L 10.4 L (13.0-17.5) gm/dL Hct 36.2 L 34.2 L (39.0-53.0) % MCHC 30.4 L (31.0-37.0) g/dL RDW 16.0 H (11.5-15.5) % Lymphocytes # 0.6 L 0.5 L (1.0-4.8) k/uL Chloride (98-107) mmol/L Glucose 101 H (74-99) mg/dL AST 186 H (17-59) U/L ALT 165 H (21-72) U/L Alkaline Phosphatase 178 H (38-126) U/L Total Protein (6.3-8.2) g/dL Albumin (3.5-5.0) g/dL 12/07/16 Range/Units 09:02 RBC (4.30-5.90) m/uL Hgb (13.0-17.5) gm/dL Hct (39.0-53.0) % MCHC (31.0-37.0) g/dL RDW (11.5-15.5) % Lymphocytes # (1.0-4.8) k/uL Chloride 108 H (98-107) mmol/L Glucose 118 H (74-99) mg/dL AST 124 H (17-59) U/L ALT 155 H (21-72) U/L Alkaline Phosphatase 132 H (38-126) U/L Total Protein 5.8 L (6.3-8.2) g/dL Albumin 3.2 L (3.5-5.0) g/dL Microbiology - Last 24 Hours (Table) 12/06/16 17:30 Urine Culture - Preliminary Urine,Voided Thrombosis Risk Factor Assmnt - Choose All That Apply Any of the Below Risk Factors Present?: No Other Risk Factors: Yes Each Risk Factor Represents 2 Points: Age 61-74 years, Central venous access, Malignancy Thrombosis Risk Factor Assessment Total Risk Factor Score: 6 Thrombosis Risk Factor Assessment Level: High Risk Assessment and Plan Plan: Sepsis: Probably due to worsening cholangitis or biliary sepsis, patient is on Zosyn which will continue gastroenterology will be consulted. #2 hypothyroidism #3 gases patient reflux disease #4 history of pancreatic cancer with biliary stents in the past. #5 history of thyroid and testicular cancer which is in remission Plan as mentioned above
[2016-12-08] MEDS: PIPERACILLIN-TAZOBACTAM 3.375 GM in DEXTROSE/WATER 1 50ML.BAG IVPB SCH ×2 (04:37→11:59)
[2016-12-08] MEDS: LEVOTHYROXINE 88 MCG TAB PO SCH (06:25)
[2016-12-08 07:05] LABS: CH 28.9; CHCM 31.5; HCT 32.5 % (39.0-53.0); HDW 2.81; HGB 10.1 gm/dL (13.0-17.5); Hypochromasia Slight; MCH 28.7 pg (25.0-35.0); MCHC 31.2 g/dL (31.0-37.0); Mean Platelet Volume 7.7; RBC 3.53 m/uL (4.30-5.90); RDW 15.7 % (11.5-15.5); WBC 4.6 k/uL (3.8-10.6)
[2016-12-08 07:23] LABS: ALT 118 U/L (21-72); AST 68 U/L (17-59); Alkaline Phosphatase 128 U/L (38-126); Anion Gap 7 mmol/L; Blood Urea Nitrogen 12 mg/dL (9-20); Carbon Dioxide 26 mmol/L (22-30); Chloride 109 mmol/L (98-107); Glucose 97 mg/dL (74-99); Non-African American GFR(MDRD) >60 (>60 ml/min/1.73 sqM); Potassium 4.1 mmol/L (3.5-5.1); Sodium 142 mmol/L (137-145); Total Bilirubin 0.3 mg/dL (0.2-1.3); Total Protein 5.8 g/dL (6.3-8.2)
[2016-12-08] MEDS: DOCUSATE 100 MG CAP PO SCH (08:29)
[2016-12-08] MEDS: PANTOPRAZOLE 40 MG TABLET PO SCH (08:29)
[2016-12-08] MEDS: FLUTICASONE 50MCG/SPRAY NASAL 16GM EA NOSTRIL SCH (08:29)
[2016-12-08] MEDS: MULTIVITAMINS, THERA 1 EACH TAB PO SCH (11:59)
--- NOTE | 2016-12-08 12:29 | P.CONS ---
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 It with fever chills rigors that started late Wednesday night into Wednesday morning. He underwent ERCP evaluation with stent removal and replacement at [facility] on 12/03/2016. Patient states he had a plastic biliary stent removed and replaced with a metal stent. Patient was not on antibiotics prior to procedure but was advised to take Cipro twice daily post procedure. Denies abdominal pain changes in the color urine or stool. Preliminary blood cultures no growth. T-max 102.9. CT abdomen and pelvis redemonstration of metallic stent in the CBD which appears patent with pneumobilia redemonstrated. Possible small dependent gallstones. Admission white count 8.5. Hemoglobin 11.5. Platelet 172. INR 1.0. total bilirubin 0.5. AST 186. ALT 165. Alkaline phosphates 178. Current total bili of 0.3. AST 60. ALT 118. Alkaline phosphates 128. Fevers have subsided. Receiving intravenous antibiotics. Review of Systems Constitutional: Denies fever, chills, sweats, weight gain, or loss. HEENT: Negative for migraines, blurred vision or loss, earaches, drainage, tinnitus, oral mucosal lesions, dysphagia, or odynophagia. Cardiac: Negative for chest pain, arrhythmias, or palpitation. Respiratory: Negative for shortness of breath, hemoptysis, cough, or sputum production. Gastrointestinal: See HPI for pertinent findings. Genitourinary: Negative for hematuria, urgency, frequency, polyuria, dysuria, or penile discharge. Musculoskeletal: Negative for muscle aches, swelling, arthritis, and arthralgias. Neurologic: Negative for stroke or TIA. Endocrine: Negative for thyroid problems. Skin: Negative for rash or itching. Psychiatric: Negative history for depression and anxiety All systems: negative (See HPI) Constitutional: Reports as per HPI Past Medical History Past Medical History: Cancer, Thyroid Disorder Additional Past Medical History / Comment(s): Testicular cancer, pancreatic cancer (diagnosed February 2015), sepsis, hypothyroid. History of Any Multi-Drug Resistant Organisms: None Reported Past Surgical History: Hernia Repair, Tonsillectomy Additional Past Surgical History / Comment(s): 1979 left testicle + lymph nodes removed along spine, right inguinal hernia repair x3 with mesh, hemorrhoidectomy (2011), colonoscopy (Jan 2015), titanium stent in pancreas (2015 @ [place]), restent in 01/2016 ([facility] [place]), smart port. Past Anesthesia/Blood Transfusion Reactions: No Reported Reaction Past Psychological History: No Psychological Hx Reported Smoking Status: Never smoker Past Alcohol Use History: None Reported Additional Past Alcohol Use History / Comment(s): Patient is a lifelong nonsmoker. 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 He lives at home with his and son. There is a cat in the home. No recent travel or service. Past Drug Use History: None Reported Additional Drug Use History / Comment(s): Patient states he has had a lifelong nonsmoker. 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 He lives at home with his and son. There is a cat in the home. No recent travel or service. - Past Family History Mother Family Medical History: Cancer Additional Family Medical History / Comment(s): Cancer x 3, lived until age 89. Sister(s) Family Medical History: Cancer Additional Family Medical History / Comment(s): Breast cancer. Brother(s) Family Medical History: Cancer Father Family Medical History: Cancer Additional Family Medical History / Comment(s): Colon/bladder cancer x 3, at 94 Medications and Allergies Home Medications Medication Instructions Recorded Confirmed Type Docusate [Colace] 100 mg PO BID 11/19/15 12/06/16 History Levothyroxine Sodium [Synthroid] 88 mcg PO DAILY 11/19/15 12/06/16 History Fluticasone Nasal [place] [Flonase 2 spray EA NOSTRIL DAILY 05/23/16 12/06/16 History Nasal [place]] Multivitamins, Thera [Multivitamin 1 tab PO DAILY 05/23/16 12/06/16 History (formulary)] Acetaminophen Tab [Tylenol Tab] 650 mg PO Q4-6H PRN 10/04/16 12/06/16 History Omeprazole [PriLOSEC] 20 mg PO DAILY 08/13/17 10/15/17 History Loratadine [Alavert] 10 mg PO DAILY PRN 12/06/16 12/06/16 History Allergies Allergy/AdvReac Type Severity Reaction Status Date / Time No Known Allergies Allergy Verified 12/06/16 18:19 Physical Exam Vitals: Vital Signs Temp Pulse Resp BP Pulse Ox 12/08/16 07:00 97.8 F 60 16 139/80 97 12/07/16 23:00 98.5 F 71 14 140/75 98 12/07/16 15:00 97.4 F L 76 16 131/79 99 Intake and Output 12/07/16 12/08/16 12/08/16 22:59 06:59 14:59 Other: # Voids 2 1 General appearance: The patient is alert, oriented, in no acute distress. HET: Head is normocephalic and atraumatic. Pupils are equal and reactive. Oropharynx is clear without lesions. Neck: Supple without lymphadenopathy. Trachea midline. Heart: S1 S2. Regular rate and rhythm. Lungs: No crackles or wheezes are heard. Abdomen: Soft, nontender, nondistended with bowel sounds. No peritoneal signs. No palpable organomegaly or masses. Extremities: Normal skin color and turgor. No cyanosis, rash, ulceration, clubbing, or edema. Radial and pedal pulses are 2/4 bilaterally. Neurological: No focal deficits. Strength and sensation are grossly intact. Results CBC & Chem 7: 12/08/16 06:55 12/08/16 06:55 Labs: Abnormal Lab Results - Last 24 Hours (Table) 12/08/16 12/08/16 Range/Units 06:55 06:55 RBC 3.53 L (4.30-5.90) m/uL Hgb 10.1 L (13.0-17.5) gm/dL Hct 32.5 L (39.0-53.0) % RDW 15.7 H (11.5-15.5) % Chloride 109 H (98-107) mmol/L AST 68 H (17-59) U/L ALT 118 H (21-72) U/L Alkaline Phosphatase 128 H (38-126) U/L Total Protein 5.8 L (6.3-8.2) g/dL Albumin 3.1 L (3.5-5.0) g/dL Microbiology - Last 24 Hours (Table) 12/06/16 18:15 Blood Culture - Preliminary Blood No Growth after 24 hours 12/06/16 17:30 Urine Culture - Final Urine,Voided CT scan - abdomen: report reviewed (Dr. Parks) Assessment and Plan (1) Ascending cholangitis Narrative/Plan: Biliary sepsis S/p ERCP 12/03/2016 with biliary stent exchange at [facility] Status: Acute (2) [place]-ampullary carcinoma Status: Acute Plan: 1. Continue antibiotic therapy. Liver function tests are improving. Fever subsided. ERCP not indicated. Discharge per medicine. 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 Thank you for this kind referral and the opportunity to participate in the care of your patient. This consultation was discussed with Dr. Parks. The impression and plan of care have been directed as dictated.
[2016-12-08 16:02] VITALS: BP 142/84; PULSE 71; RESP 20; TEMP 98.9
--- NOTE | 2016-12-09 00:36 | P.DS ---
Providers Date of admission: 12/06/16 21:04 Expected date of discharge: 12/08/16 Attending physician: Lizbeth Larkin Consults: 12/07/16 12:54 Consult Physician Routine Consulting Provider: Nadiya Taveras Consult Reason/Comments: Poassible ascending cholangitis Do you want consulting provider notified?: Yes Primary care physician: Shelby [facility] Course: Discharge diagnosis #1 Sepsis: Probably due to ascending cholangitis or biliary sepsis, patient was on Zosyn . Patient was seen by GI area did not need for ERCP. #2 hypothyroidism #3 gases patient reflux disease #4 history of pancreatic cancer with biliary stents in the past and recent exchange. #5 history of thyroid and testicular cancer which is in remission Hospital course 67-year-old gentleman came in with complaints of fever chills, and generalized body aches. Patient's influenza testing is negative patient CVA is within normal limits and chest x-ray did not show any pneumonic process. Patient had a biliary stent that was replaced on , last . Patient is found to have elevated liver enzymes are coming down CAT scan of the abdomen did not show any biliary leak, I did show patent stents. Patient at this point of time is feeling much better denied any nausea, vomiting, cough, dysuria, photophobia. Patient denied any abdominal pain is complaining of some discomfort under the rib cage area since his biliary stent replacement Patient was continued on IV fluids and antibiotics no cough Zosyn. Fever and tachycardia resolved. Patient denied any abdominal pain. Patient was seen by GI and recommended no need for ERCP at this time. Patient will be continued on antibiotic course in the form of ciprofloxacin and Flagyl a total of 7 days. Patient is stable to be discharged home. Discharge physical examination was done Patient Condition at Discharge: Fair Plan - Discharge Summary New Discharge Prescriptions: New Ciprofloxacin [Cipro Susp] 500 mg PO BID #10 ml metroNIDAZOLE [Flagyl] 500 mg PO Q8HR #15 tab Continue Docusate [Colace] 100 mg PO BID Levothyroxine Sodium [Synthroid] 88 mcg PO DAILY Multivitamins, Thera [Multivitamin (formulary)] 1 tab PO DAILY Fluticasone Nasal [place] [Flonase Nasal [place]] 2 spray EA NOSTRIL DAILY Omeprazole [PriLOSEC] 20 mg PO DAILY Acetaminophen Tab [Tylenol] 650 mg PO Q4-6H PRN PRN Reason: Fever Loratadine [Alavert] 10 mg PO DAILY PRN PRN Reason: Allergy Symptoms Discharge Medication List Docusate [Colace] 100 mg PO BID 11/19/15 [History] Levothyroxine Sodium [Synthroid] 88 mcg PO DAILY 11/19/15 [History] Fluticasone Nasal [place] [Flonase Nasal [place]] 2 spray EA NOSTRIL DAILY 05/23/16 [History] Multivitamins, Thera [Multivitamin (formulary)] 1 tab PO DAILY 05/23/16 [History ] Acetaminophen Tab [Tylenol] 650 mg PO Q4-6H PRN 10/04/16 [History] Omeprazole [PriLOSEC] 20 mg PO DAILY 10/04/16 [History] Loratadine [Alavert] 10 mg PO DAILY PRN 12/06/16 [History] Ciprofloxacin [Cipro Susp] 500 mg PO BID #10 ml 12/08/16 [Rx] metroNIDAZOLE [Flagyl] 500 mg PO Q8HR #15 tab 12/08/16 [Rx] Follow up Appointment(s)/Referral(s): Shelby Styles MD [Primary Care Provider] - 12/14/16 10:30 am Patient Instructions/Handouts: Endoscopic Biliary Stenting (DC) Activity/Diet/Wound Care/Special Instructions: Follow up with oncologist at [facility] as directed. Regular diet. Discharge Disposition: HOME SELF-CARE
== END 2016-12-08 16:42 | disposition home or self-care (01) | DRG 872 ==
LOC: EC 16:53 → 5MS5E 21:04 → 4MS4W 22:07
PROVIDERS: ADMIT Hospitalist; ATTEND Hospitalist
DX: A41.9 Sepsis, unspecified organism (principal); K83.0 Cholangitis; C78.7 Secondary malignant neoplasm of liver and intrahepatic bile duct; E03.9 Hypothyroidism, unspecified; K21.9 Gastro-esophageal reflux disease without esophagitis; Z79.51 Long term (current) use of inhaled steroids; Z79.899 Other long term (current) drug therapy; Z85.07 Personal history of malignant neoplasm of pancreas; Z96.89 Presence of other specified functional implants; Z85.47 Personal history of malignant neoplasm of testis; Z85.850 Personal history of malignant neoplasm of thyroid; Z92.21 Personal history of antineoplastic chemotherapy
CPT/HCPCS: 36415; 71020; 74177; 80053; 81003; 83605; 85025; 85027; 85610; 85730; 87040; 87086; 87502; 93005; 96361; 96365; 99285

== ENCOUNTER → 2016-12-11 | Outpatient (CLI) | payer OTHER, MEDICARE, BC ==
--- NOTE | 2016-12-11 15:22 | CT ---
EXAMINATION TYPE: CT ChestAbdPelvis w con DATE OF EXAM: 12/11/2016 INDICATION: Carcinoma of the biliary tract COMPARISON: CT abdomen pelvis 12/06/2016 CT DLP: 1189.9 mGycm CONTRAST: Performed with Oral Contrast and with IV Contrast, patient injected with 100 mL of Omnipaque 300. TECHNIQUE: Axial images at 5 mm thick sections. Reconstructed images in the coronal plane. Delayed images through the kidneys. FINDINGS: CT CHEST: Portion of the thyroid visualized is normal. No suspicious lung nodules or focal infiltrates are present. No enlarged mediastinal or hilar adenopathy is evident. The ascending aorta diameter at the level of the main pulmonary artery is 3.4 cm. The main pulmonary artery diameter at the bifurcation is 2.[address] ABDOMEN: Extensive surgical clips are within the retroperitoneal periaortic and retrocaval regions . Liver: Intrahepatic biliary air is present. Some air is within the gallbladder. There is a stent thro ugh the common bile duct. No suspicious masses within the liver are identified. No obvious biliary du ct tract mass is identified. There may be some filling of the stent lumen compared to the previous ex amination, example images series 3 image 63. Spleen: Normal Pancreas: Normal Adrenal glands: The adrenal glands are normal. Gallbladder: Normal Kidneys: No masses are evident. No hydronephrosis is present. No cysts are present. Delayed images were obtained through the kidneys, which remain unremarkable. Aorta: Vascular calcification is within the aorta. This is limited in evaluation. Inferior vena cava: Normal. CT PELVIS: Loops of bowel within the abdomen and pelvis are normal. There are loops of bowel which are incom pletely distended or lack oral contrast limiting their evaluation. Appendix: Not visualized Urinary bladder: Normal. Genitourinary structures: Prostate contains calcification. Osseous structures: No suspicious lytic or sclerotic lesions. Some degenerative changes within the sc oliotic lumbar spine. IMPRESSIONS: 1. No suspicious recurrent or metastatic disease identified. 2. Postsurgical changes.
== END | disposition home or self-care (01) ==
LOC: RADPROMAIN 10:09
PROVIDERS: ATTEND Internal Medicine Hematology & Oncology
DX: C24.9 Malignant neoplasm of biliary tract, unspecified (principal); Z98.890 Other specified postprocedural states
CPT/HCPCS: 71260; 74177; Q9967; J1642

== ENCOUNTER 2017-03-01 17:21 | Inpatient (IN) | payer OTHER, MEDICARE, BC ==
[2017-03-01] MEDS ORDERED: SODIUM CHLORIDE 0.9% 500 ML IV STA ×2 (17:51→18:03)
[2017-03-01] MEDS ORDERED: ACETAMINOPHEN TAB 500 MG TAB PO STA ×2 (17:51→20:01)
[2017-03-01] MEDS ORDERED: cefTRIAXone IN SWFI 1,000 MG/10 ML SYRINGE IVP STA (17:51)
[2017-03-01] MEDS ORDERED: ONDANSETRON 4 MG/2 ML VIAL IVP STA (17:53)
--- NOTE | 2017-03-01 18:03 | ED ---
Fever HPI - General Chief Complaint: Fever Stated Complaint: Fever Time Seen by Provider: 03/01/17 17:37 Source: patient Mode of arrival: ambulatory Limitations: no limitations - History of Present Illness Initial Comments: This 66-year-old white male presents with a complaint of a fever. He states that he is felt feverish with chills over the last 2 days. He's had a mild fever initially but it was up to 102.9 T-max today. He has taken occasional Tylenol for this. He also has a slight cough with out any significant production. He's had some mild shortness of breath. This is been somewhat chronic for him and apparently started after his last chemotherapy about. He states that he has had pancreatic cancer, stage IV, since 2016. He has been through multiple episodes of chemotherapy. He follows up with Dr. Dominguez from oncology. He apparently did does also have a lesion in his liver. He denies any urinary symptomatology. There has been no rashes. He apparently has had similar incidents in the past which required hospitalization and IV antibiotics with unknown definite cause. No other complaints or modifying factors. - Related Data Home Medications Medication Instructions Recorded Confirmed Docusate [Colace] 100 mg PO BID 11/19/15 03/01/17 Levothyroxine Sodium [Synthroid] 88 mcg PO DAILY 11/19/15 03/01/17 Fluticasone Nasal [place] [Flonase 2 spray EA NOSTRIL DAILY 05/23/16 03/01/17 Nasal [place]] Multivitamins, Thera [Multivitamin 1 tab PO DAILY 05/23/16 03/01/17 (formulary)] Acetaminophen Tab [Tylenol] 650 mg PO Q4-6H PRN 10/04/16 03/01/17 Omeprazole [PriLOSEC] 20 mg PO HS 10/04/16 03/01/17 Lactose-Reduced Food [Boost] 237 ml PO DAILY 03/01/17 03/01/17 Loratadine [Claritin] 10 mg PO DAILY 03/01/17 03/01/17 Allergies Allergy/AdvReac Type Severity Reaction Status Date / Time No Known Allergies Allergy Verified 03/01/17 18:36 Review of Systems ROS Statement: Those systems with pertinent positive or pertinent negative responses have been documented in the HPI. ROS Other: All systems not noted in ROS Statement are negative. Past Medical History Past Medical History: Cancer, Thyroid Disorder Additional Past Medical History / Comment(s): Testicular cancer, pancreatic cancer (diagnosed February 2015), sepsis, hypothyroid. History of Any Multi-Drug Resistant Organisms: None Reported Past Surgical History: Hernia Repair, Tonsillectomy Additional Past Surgical History / Comment(s): 1979 left testicle + lymph nodes removed along spine, right inguinal hernia repair x3 with mesh, hemorrhoidectomy (2011), colonoscopy (Jan 2015), titanium stent in pancreas (2015 @ [place]), restent in 01/2016 ([facility] [place]), smart port. Past Anesthesia/Blood Transfusion Reactions: No Reported Reaction Past Psychological History: No Psychological Hx Reported Smoking Status: Never smoker Past Alcohol Use History: None Reported Past Drug Use History: None Reported - Past Family History Mother Family Medical History: Cancer Additional Family Medical History / Comment(s): Cancer x 3, lived until age 89. Sister(s) Family Medical History: Cancer Additional Family Medical History / Comment(s): Breast cancer. Brother(s) Family Medical History: Cancer Father Family Medical History: Cancer Additional Family Medical History / Comment(s): Colon/bladder cancer x 3, at 94 General Exam - General Exam Comments Initial Comments: GENERAL: The patient is well nourished and well hydrated. VITAL SIGNS: Heart rate, blood pressure, respiratory rate reviewed as recorded in nurse's notes. EYES: Pupils are round and reactive. Extraocular movements are intact. No conjunctival / lid redness or swelling. ENT: No external evidence of injury, swelling, or ecchymosis. Airway is patent. Throat is clear. NECK: Nontender. No swelling or evidence of injury. No subcutaneous emphysema. Trachea is midline. No thyroid mass. HEART: Regular rate and rhythm. Good peripheral pulses. LUNGS/CHEST: Breath sounds clear and equal bilaterally. No rales, rhonchi, or wheezes. No ecchymosis, subcutaneous emphysema, or tenderness. ABDOMEN: Abdomen soft without tenderness. No palpable masses or organomegaly. No peritoneal signs. No abdominal wall swelling or ecchymosis. EXTREMITIES: No extremity tenderness. Normal muscle tone and function. No thoracolumbar tenderness. NEUROLOGIC: Sensation is grossly intact. Cranial nerve exam reveals face is symmetrical, tongue is midline, speech is clear. SKIN: No abrasions or ecchymosis is noted. No induration or masses noted. PSYCHIATRIC: Alert and oriented. Appropriate behavior and judgment. Limitations: no limitations Course Vital Signs 03/01/17 03/01/17 03/01/17 17:31 19:03 19:10 Temperature 100.5 F H 104.1 F H 103.7 F H Pulse Rate 124 H 121 H Respiratory 20 20 Rate Blood Pressure 159/72 135/84 O2 Sat by Pulse 96 96 Oximetry Medical Decision Making - Medical Decision Making The patient was seen and examined. All diagnostics were reviewed. An IV is started and he is hydrated. He also receives some Tylenol as well as some Toradol for his fever. He receives some Zofran for his nausea. His fever went up to 104.1 but then it later did come down after receiving the Toradol. He states that he is feeling better on recheck. IV Rocephin is started as well. The chest x-ray did show a trace pleural effusion but no infiltrate or other acute processes. The laboratory overall is fairly unremarkable except for elevation of his liver function studies. He apparently does have a liver mass and it may be related to that as well. It is felt as though he would require admission to the hospital for further evaluation and treatment and specialty consultation as well as IV antibiotics and fluids. This certainly felt as though he may be septic and blood culture is taken and is pending. Case was discussed with Dr. Ferreira and he is agreeable with admission and consultation for infectious disease and oncology. He would also like to add some Zithromax. - Lab Data Result diagrams: 03/01/17 18:36 03/01/17 18:36 Lab Results 03/01/17 03/01/17 03/01/17 Range/Units 18:11 18:11 18:36 WBC 6.1 (3.8-10.6) k/uL RBC 4.32 (4.30-5.90) m/uL Hgb 11.4 L (13.0-17.5) gm/dL Hct 36.2 L (39.0-53.0) % MCV 83.8 (80.0-100.0) fL MCH 26.3 (25.0-35.0) pg MCHC 31.4 (31.0-37.0) g/dL RDW 19.3 H (11.5-15.5) % Plt Count 183 (150-450) k/uL Neutrophils % 75 % Lymphocytes % 9 % Monocytes % 12 % Eosinophils % 0 % Basophils % 1 % Neutrophils # 4.6 (1.3-7.7) k/uL Lymphocytes # 0.6 L (1.0-4.8) k/uL Monocytes # 0.8 (0-1.0) k/uL Eosinophils # 0.0 (0-0.7) k/uL Basophils # 0.0 (0-0.2) k/uL Hypochromasia Slight Anisocytosis Slight Sodium (137-145) mmol/L Potassium (3.5-5.1) mmol/L Chloride (98-107) mmol/L Carbon Dioxide (22-30) mmol/L Anion Gap mmol/L BUN (9-20) mg/dL Creatinine (0.66-1.25) mg/dL Est GFR (MDRD) Af Amer (>60 ml/min/1.73 sqM) Est GFR (MDRD) Non-Af (>60 ml/min/1.73 sqM) Glucose (74-99) mg/dL Plasma Lactic Acid Paddy (0.7-2.0) mmol/L Calcium (8.4-10.2) mg/dL Total Bilirubin (0.2-1.3) mg/dL AST (17-59) U/L ALT (21-72) U/L Alkaline Phosphatase (38-126) U/L Total Protein (6.3-8.2) g/dL Albumin (3.5-5.0) g/dL Urine Color Yellow Urine Appearance Clear (Clear) Urine pH 5.5 (5.0-8.0) Ur Specific [place] 1.015 (1.001-1.035) Urine Protein Trace H (Negative) Urine Glucose (UA) Negative (Negative) Urine Ketones Negative (Negative) Urine Blood Negative (Negative) Urine Nitrite Negative (Negative) Urine Bilirubin 1+ H (Negative) Urine Urobilinogen 3.0 (<2.0) mg/dL Ur Leukocyte Esterase Negative (Negative) Heterophile Antibody (Negative) Influenza Type A RNA Not Detected (Not Detectd) Influenza Type B (PCR) Not Detected (Not Detectd) 03/01/17 03/01/17 03/01/17 Range/Units 18:36 18:36 18:36 WBC (3.8-10.6) k/uL RBC (4.30-5.90) m/uL Hgb (13.0-17.5) gm/dL Hct (39.0-53.0) % MCV (80.0-100.0) fL MCH (25.0-35.0) pg MCHC (31.0-37.0) g/dL RDW (11.5-15.5) % Plt Count (150-450) k/uL Neutrophils % % Lymphocytes % % Monocytes % % Eosinophils % % Basophils % % Neutrophils # (1.3-7.7) k/uL Lymphocytes # (1.0-4.8) k/uL Monocytes # (0-1.0) k/uL Eosinophils # (0-0.7) k/uL Basophils # (0-0.2) k/uL Hypochromasia Anisocytosis Sodium 135 L (137-145) mmol/L Potassium 4.3 (3.5-5.1) mmol/L Chloride 101 (98-107) mmol/L Carbon Dioxide 25 (22-30) mmol/L Anion Gap 9 mmol/L BUN 15 (9-20) mg/dL Creatinine 0.88 (0.66-1.25) mg/dL Est GFR (MDRD) Af Amer >60 (>60 ml/min/1.73 sqM) Est GFR (MDRD) Non-Af >60 (>60 ml/min/1.73 sqM) Glucose 121 H (74-99) mg/dL Plasma Lactic Acid Paddy 1.4 (0.7-2.0) mmol/L Calcium 9.4 (8.4-10.2) mg/dL Total Bilirubin 1.4 H (0.2-1.3) mg/dL AST 269 H (17-59) U/L ALT 412 H (21-72) U/L Alkaline Phosphatase 214 H (38-126) U/L Total Protein 6.6 (6.3-8.2) g/dL Albumin 3.8 (3.5-5.0) g/dL Urine Color Urine Appearance (Clear) Urine pH (5.0-8.0) Ur Specific [place] (1.001-1.035) Urine Protein (Negative) Urine Glucose (UA) (Negative) Urine Ketones (Negative) Urine Blood (Negative) Urine Nitrite (Negative) Urine Bilirubin (Negative) Urine Urobilinogen (<2.0) mg/dL Ur Leukocyte Esterase (Negative) Heterophile Antibody Negative (Negative) Influenza Type A RNA (Not Detectd) Influenza Type B (PCR) (Not Detectd) Disposition Clinical Impression: Pancreatic cancer, Fever, Sinus tachycardia, Hypertension, Nausea, Anemia, Transaminitis, Sepsis Disposition: ADMITTED IP TO THIS HOSP Condition: Fair Time of Disposition: 19:33 Decision Date: 03/01/17 Decision Time: 19:33
[2017-03-01] MEDS ORDERED: KETOROLAC 30 MG/ML 1 ML VIAL IVP STA (18:04)
[2017-03-01 18:23] LABS: Appearance,Urine Clear (Clear); Bilirubin,Urine 1+ (Negative); Blood,Urine Negative (Negative); Color,Urine Yellow; Glucose,Urine (UA) Negative (Negative); Ketones,Urine Negative (Negative); Leukocyte Esterase,Urine Negative (Negative); Nitrite,Urine Negative (Negative); PH, Urine 5.5 (5.0-8.0); Protein,Urine Trace (Negative); Specific Gravity,Urine 1.015 (1.001-1.035)
[2017-03-01] MEDS: SODIUM CHLORIDE 0.9% 1,000 ML IV STA (18:27)
[2017-03-01 18:53] LABS: Anisocytosis Slight; Basophils % (A) 1 %; Eosinophils % (A) 0 %; HCT 36.2 % (39.0-53.0); HGB 11.4 gm/dL (13.0-17.5); Hypochromasia Slight; Lymphocytes # (A) 0.6 k/uL (1.0-4.8); Lymphocytes % (A) 9 %; MCH 26.3 pg (25.0-35.0); MCHC 31.4 g/dL (31.0-37.0); MCV 83.8 fL (80.0-100.0); Mean Platelet Volume 7.4; Monocytes # (A) 0.8 k/uL (0-1.0); Monocytes % (A) 12 %; Neutrophils # (A) 4.6 k/uL (1.3-7.7); Neutrophils % (A) 75 %; Platelet Count 183 k/uL (150-450); RBC 4.32 m/uL (4.30-5.90); RDW 19.3 % (11.5-15.5); WBC 6.1 k/uL (3.8-10.6)
--- NOTE | 2017-03-01 18:57 | XR ---
EXAMINATION TYPE: XR chest 2V DATE OF EXAM: 03/01/2017 COMPARISON: 12/06/2016 HISTORY: History of pancreatic cancer. Dizziness. TECHNIQUE: Frontal and lateral views of the chest are obtained. FINDINGS: There is a trace left pleural effusion and left-sided Mediport terminating in the cavoatri al junction. Surgical clips reside in the central abdomen and in the left upper quadrant. There is pe rsistent left hemidiaphragm elevation. Right lung remains clear. No new focal consolidation, pulmonar y vascular congestion or pneumothorax. IMPRESSION: Trace left pleural effusion. No new focal consolidation.
[2017-03-01 19:02] LABS: ALT 412 U/L (21-72); AST 269 U/L (17-59); Albumin 3.8 g/dL (3.5-5.0); Alkaline Phosphatase 214 U/L (38-126); Anion Gap 9 mmol/L; Blood Urea Nitrogen 15 mg/dL (9-20); Calcium 9.4 mg/dL (8.4-10.2); Carbon Dioxide 25 mmol/L (22-30); Chloride 101 mmol/L (98-107); Glucose 121 mg/dL (74-99); Potassium 4.3 mmol/L (3.5-5.1); Sodium 135 mmol/L (137-145); Total Bilirubin 1.4 mg/dL (0.2-1.3); Total Protein 6.6 g/dL (6.3-8.2)
[2017-03-01] MEDS ORDERED: AZITHROMYCIN 500 MG in SODIUM CHLORIDE 0.9% 250 ML IVPB STA (19:04)
[2017-03-01] MEDS ORDERED: SODIUM CHLORIDE 0.9% 1,000 ML IV STA (19:33)
[2017-03-01] MEDS ORDERED: HYDROmorphone 2 MG/ML 1 ML SYRINGE IVP PRN (19:34)
[2017-03-01] MEDS ORDERED: ACETAMINOPHEN TAB 325 MG TAB PO PRN (19:34)
[2017-03-01] MEDS ORDERED: ONDANSETRON 4 MG/2 ML VIAL IVP PRN (19:34)
[2017-03-01] MEDS ORDERED: NALOXONE 0.4 MG/ML 1 ML VIAL IV PRN (19:34)
[2017-03-01] MEDS ORDERED: IBUPROFEN 400 MG TAB PO PRN (19:34)
[2017-03-01] MEDS: DOCUSATE 100 MG CAP PO SCH (22:58)
[2017-03-02] MEDS: MEROPENEM 1 GM in SODIUM CHLORIDE 0.9% 100 ML IVPB SCH ×4 (00:14→23:34)
[2017-03-02 02:59] VITALS: BMI 31.4
[2017-03-02] MEDS: ACETAMINOPHEN TAB 500 MG TAB PO PRN ×2 (05:10→17:01)
[2017-03-02] MEDS: LEVOTHYROXINE 88 MCG TAB PO SCH (05:11)
--- NOTE | 2017-03-02 08:29 | HP ---
HISTORY AND PHYSICAL DATE OF SERVICE: 03/01/2017 CHIEF COMPLAINTS: fever, rigors, chills. HISTORY OF PRESENT ILLNESS: This 66-year-old gentleman with a past medical history of ampullary carcinoma, history of hypothyroidism, history of multiple episodes of sepsis is on chemotherapy. Last chemotherapy was on the 12 of February. Subsequently, patient had fever 8 hours on Wednesday and today the patient has shaking chills and patient came to [facility] and was admitted for further evaluation and treatment. There is no history any headache, loss of consciousness, chest pain or palpitation at this time. The patient had multiple stents previously. PAST MEDICAL HISTORY: History of pancreatic ampullary cancer, history of hypothyroidism, history of multiple episodes of sepsis. MEDICATIONS: Medications prior to admission include home medications are: 1. Boost 237 mL p.o. daily. 2. Colace 100 mg p.o. b.i.d. 3. Tylenol 650 q.4 p.r.n. 4. Prilosec 20 mg q.h.s. 5. Multivitamins 1 p.o. daily. 6. Claritin 10 mg daily. 7. Synthroid 88 mcg p.o. daily. 8. Flonase 2 sprays daily. ALLERGIES: Allergies are none. FAMILY HISTORY: History of cancer in the family. SOCIAL HISTORY: No history of smoking. No history of alcohol intake. REVIEW OF SYSTEMS: ENT: No diminished hearing or diminished vision. CARDIOVASCULAR SYSTEM: No angina. RESPIRATORY SYSTEM: No cough or hemoptysis. GI: As mentioned earlier. : No dysuria. NERVOUS SYSTEM: No numbness or weakness. ALLERGY/IMMUNOLOGICAL: No asthma. MUSCULOSKELETAL: As mentioned earlier. HEMATOLOGY/ONCOLOGY: As mentioned earlier. ENDOCRINE: As mentioned earlier, hypothyroidism. CONSTITUTIONAL: As mentioned earlier. DERMATOLOGY: Negative. RHEUMATOLOGY: Negative. PSYCHIATRIC: As mentioned earlier. PHYSICAL EXAMINATION: The patient is alert and oriented x3. The pulse is 119, blood pressure 116/60, respirations 16, temperature is 101.4, pulse ox 94% on room air. HEENT: Conjunctivae normal. Oral mucosa moist. Neck is no jugular venous distention. No carotid bruit. No lymph node enlargement. CARDIOVASCULAR: S1 and S2 muffled. RESPIRATORY: Breath sounds diminished at the bases. No rhonchi. No crackles. ABDOMEN: Soft, nontender. No mass palpable. No hepatosplenomegaly. LEGS: No edema, no swelling. NERVOUS SYSTEM: Higher functions as mentioned earlier. Moves all 4 limbs. No focal motor or sensory deficit. LYMPHATICS: No lymphadenopathy of the neck, axillae or groin. SKIN: No ulcer, rash or bleeding. LABS: WBC 6.1, hemoglobin 11.4. Sodium 135. Bilirubin is 1.4. AST is 269, ALT is 412 and alkaline phosphatase is 214. ASSESSMENT: 1. Fever, possible sepsis with ascending cholangitis. 2. History of pancreatic cancer, ampullary cancer, status post multiple stents, on chemotherapy. 3. Anemia normocytic anemia of malignancy. 4. Hyponatremia. 5. Increased AST, ALT, alkaline phosphatase. 6. History of hypothyroidism. 7. History of multiple episodes of sepsis. 8. History of hernia surgery. RECOMMENDATIONS AND DISCUSSION: In this 66-year-old gentleman who presented with multiple complex medical issues, will monitor the patient closely, continue the current medications, continue symptomatic treatment. Obtain cultures. Broad-spectrum IV antibiotics and the patient is started on meropenem. We will obtain cultures. Consult Dr. Spivey and Dr. Lynn. Guarded prognosis because of multiple complex medical issues. We will repeat labs. Further recommendations to follow. A copy of dictation forwarded to Dr. Styles who is the primary physician. MMODL / IJN: [id number] /
[2017-03-02 08:35] LABS: Anisocytosis Slight; Basophils % (A) 0 %; Eosinophils % (A) 0 %; HCT 31.4 % (39.0-53.0); Hypochromasia Slight; Lymphocytes # (A) 0.6 k/uL (1.0-4.8); Lymphocytes % (A) 6 %; MCH 26.1 pg (25.0-35.0); MCHC 30.5 g/dL (31.0-37.0); MCV 85.5 fL (80.0-100.0); Mean Platelet Volume 7.1; Monocytes # (A) 1.1 k/uL (0-1.0); Monocytes % (A) 11 %; Neutrophils # (A) 7.9 k/uL (1.3-7.7); Neutrophils % (A) 78 %; Platelet Count 179 k/uL (150-450); RBC 3.67 m/uL (4.30-5.90); RDW 17.4 % (11.5-15.5); WBC 10.2 k/uL (3.8-10.6)
[2017-03-02 08:39] LABS: HGB 9.6 gm/dL (13.0-17.5)
[2017-03-02 08:41] LABS: ALT 288 U/L (21-72); AST 127 U/L (17-59); Albumin 2.9 g/dL (3.5-5.0); Alkaline Phosphatase 164 U/L (38-126); Amylase 38 U/L (30-110); Anion Gap 8 mmol/L; Blood Urea Nitrogen 17 mg/dL (9-20); Calcium 8.7 mg/dL (8.4-10.2); Carbon Dioxide 23 mmol/L (22-30); Chloride 108 mmol/L (98-107); Glucose 95 mg/dL (74-99); Lipase 67 U/L (23-300); Potassium 4.5 mmol/L (3.5-5.1); Sodium 139 mmol/L (137-145); Total Bilirubin 1.2 mg/dL (0.2-1.3); Total Protein 5.3 g/dL (6.3-8.2)
[2017-03-02] MEDS: MULTIVITAMINS, THERA 1 EACH TAB PO SCH (08:54)
[2017-03-02] MEDS: DOCUSATE 100 MG CAP PO SCH ×2 (08:54→20:31)
[2017-03-02] MEDS: PANTOPRAZOLE 40 MG/10 ML VIAL IV SCH (08:54)
[2017-03-02] MEDS: LORATADINE 10 MG TAB PO SCH (08:54)
[2017-03-02] MEDS: FLUTICASONE 50MCG/SPRAY NASAL 16GM EA NOSTRIL SCH (08:54)
[2017-03-02] MEDS: ENOXAPARIN 40 MG/0.4 ML SYRINGE SQ SCH (08:54)
[2017-03-02] MEDS ORDERED: cefTRIAXone IN SWFI 1,000 MG/10 ML SYRINGE IVP SCH (09:00)
[2017-03-02] MEDS ORDERED: NON-FORMULARY DRUG (Lactose-Reduced Food [Boost] 237 ML) PO SCH (09:00)
[2017-03-02] MEDS ORDERED: AZITHROMYCIN 500 MG in SODIUM CHLORIDE 0.9% 250 ML IVPB SCH (09:00)
--- NOTE | 2017-03-02 11:32 | P.CONS ---
History of Present Illness - Reason for Consult Consult date: 03/02/17 Fever - History of Present Illness This is a 66-year-old male who has a past medical history significant for pancreatic cancer currently on chemotherapy under the care of Dr. Dominguez diagnosed in February 2015. He is on Gemzar for 3 weeks and off 1 week. Patient states he was completely off chemotherapy for 5 months and this was just resumed 3 weeks ago and he completed on Wednesday. On Wednesday he had a temperature of 99.7 and was taking Tylenol with improvement but this continued to worsen over the weekend and by Wednesday the fevers were significant with chills and rigors. He states he was a little nauseated which is new for him. He does have some mild shortness of breath and mild cough that is nonproductive that has been chronic for him. He has shortness of breath with exertion. He denies having any abdominal pain, vomiting, diarrhea, dysuria. He denies any change in his appetite. He is able to swallow without any difficulties or choking episodes. He has been able to ambulate without difficulty. He has not had any falls. He came into [facility] emergency center where he was found have a temperature of 104.1 with tachycardia. White count was 6.1. Liver function tests were elevated area influenza testing was negative, heterophile negative, amylase and lipase negative. Urinalysis was clear with nitrate and leukoesterase negative and urine culture in progress. Blood cultures status received. Chest x-ray shows trace left pleural effusion. Patient does have history of biliary stents done at [facility]. He does not recall when one was last placed. Review of Systems All systems: negative Constitutional: Reports chills, Reports fatigue, Reports fever, Reports malaise , Denies anorexia, Denies poor appetite Eyes: denies blurred vision, denies pain Ears, nose, mouth and throat: Reports mouth pain, Denies dental pain, Denies headache, Denies sore throat Cardiovascular: Reports decreased exercise tolerance, Reports dyspnea on exertion, Denies chest pain, Denies edema, Denies leg edema, Denies lightheadedness, Denies palpitations, Denies shortness of breath, Denies syncope Respiratory: Reports cough, Reports dyspnea, Denies cough with sputum, Denies excessive sputum, Denies hemoptysis, Denies home oxygen, Denies wheezing Gastrointestinal: Denies abdominal pain, Denies diarrhea, Denies nausea, Denies vomiting Genitourinary: Denies dysuria Musculoskeletal: Denies myalgias Integumentary: Denies pruritus, Denies rash Neurological: Denies numbness, Denies weakness Psychiatric: Denies anxiety, Denies depression Endocrine: Denies fatigue, Denies weight change Past Medical History Past Medical History: Cancer, Thyroid Disorder Additional Past Medical History / Comment(s): Testicular cancer, pancreatic cancer (diagnosed February 2015), sepsis, hypothyroid. History of Any Multi-Drug Resistant Organisms: None Reported Past Surgical History: Hernia Repair, Tonsillectomy Additional Past Surgical History / Comment(s): 1979 left testicle + lymph nodes removed along spine, right inguinal hernia repair x3 with mesh, hemorrhoidectomy (2011), colonoscopy (Jan 2015), titanium stent in pancreas (2015 @ [facility]), restent in 01/2016 ([facility]), smart port. 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 He lives at home with his and son. There is a cat in the home. No recent travel or service. Past Drug Use History: None Reported Additional Drug Use History / Comment(s): . - Past Family History Mother Family Medical History: Cancer Additional Family Medical History / Comment(s): Cancer x 3, lived until age 89. Sister(s) Family Medical History: Cancer Additional Family Medical History / Comment(s): Breast cancer. Brother(s) Family Medical History: Cancer Father Family Medical History: Cancer Additional Family Medical History / Comment(s): Colon/bladder cancer x 3, at 94 Medications and Allergies Home Medications Medication Instructions Recorded Confirmed Type Docusate [Colace] 100 mg PO BID 11/19/15 03/01/17 History Levothyroxine Sodium [Synthroid] 88 mcg PO DAILY 11/19/15 03/01/17 History Fluticasone Nasal [place] [Flonase 2 spray EA NOSTRIL DAILY 05/23/16 03/01/17 History Nasal [place]] Multivitamins, Thera [Multivitamin 1 tab PO DAILY 05/23/16 03/01/17 History (formulary)] Acetaminophen Tab [Tylenol] 650 mg PO Q4-6H PRN 10/04/16 03/01/17 History Omeprazole [PriLOSEC] 20 mg PO HS 10/04/16 03/01/17 History Lactose-Reduced Food [Boost] 237 ml PO DAILY 03/01/17 03/01/17 History Loratadine [Claritin] 10 mg PO DAILY 03/01/17 03/01/17 History Allergies Allergy/AdvReac Type Severity Reaction Status Date / Time No Known Allergies Allergy Verified 03/01/17 18:36 Physical Exam Vitals: Vital Signs Temp Pulse Pulse Resp BP BP Pulse Ox 03/02/17 07:00 97.7 F 74 16 99/63 96 03/02/17 05:15 100.3 F H 91 03/02/17 03:02 98.9 F 76 03/02/17 00:20 89 16 03/01/17 21:57 99.0 F 03/01/17 20:45 101.4 F H 119 H 16 116/60 94 L 03/01/17 20:22 102 F H 108 H 18 127/68 95 03/01/17 19:10 103.7 F H 03/01/17 19:03 104.1 F H 121 H 20 135/84 96 03/01/17 17:31 100.5 F H 124 H 20 159/72 96 Intake and Output 03/01/17 03/02/17 03/02/17 22:59 06:59 14:59 Other: # Voids 1 Weight 88.451 kg 88.451 kg Gen: This is a 66-year-old male. He is sitting up in bed and appears to be in no acute distress. HEENT: Head is atraumatic, normocephalic. Pupils equal, round. Sclerae is anicteric. Conjunctiva pink. Mucous members of the mouth are moist. Lesion on the right lateral tongue. NECK: Supple. No JVD. No lymphadenopathy. No thyromegaly. LUNGS: Clear to auscultation. No wheezes or rhonchi. No intercostal retractions. HEART: Regular rate and rhythm. No murmur. ABDOMEN: Soft. Bowel sounds are present. No masses. No tenderness. EXTREMITIES: No pedal edema. No calf tenderness. Dorsalis pedis is +2 bilaterally. NEUROLOGICAL: Patient is awake, alert and oriented x3. Cranial nerves 2 through 12 are grossly intact. Results Results: Laboratory Results WBC 10.2 k/uL (3.8-10.6) 03/02/17 07:50 RBC 3.67 m/uL (4.30-5.90) L 03/02/17 07:50 Hgb 9.6 gm/dL (13.0-17.5) L D 03/02/17 07:50 Hct 31.4 % (39.0-53.0) L 03/02/17 07:50 MCV 85.5 fL (80.0-100.0) 03/02/17 07:50 MCH 26.1 pg (25.0-35.0) 03/02/17 07:50 MCHC 30.5 g/dL (31.0-37.0) L 03/02/17 07:50 RDW 17.4 % (11.5-15.5) H 03/02/17 07:50 Plt Count 179 k/uL (150-450) 03/02/17 07:50 Neutrophils % 78 % 03/02/17 07:50 Lymphocytes % 6 % 03/02/17 07:50 Monocytes % 11 % 03/02/17 07:50 Eosinophils % 0 % 03/02/17 07:50 Basophils % 0 % 03/02/17 07:50 Neutrophils # 7.9 k/uL (1.3-7.7) H 03/02/17 07:50 Lymphocytes # 0.6 k/uL (1.0-4.8) L 03/02/17 07:50 Monocytes # 1.1 k/uL (0-1.0) H 03/02/17 07:50 Eosinophils # 0.0 k/uL (0-0.7) 03/02/17 07:50 Basophils # 0.0 k/uL (0-0.2) 03/02/17 07:50 Hypochromasia Slight 03/02/17 07:50 Anisocytosis Slight 03/02/17 07:50 Sodium 139 mmol/L (137-145) 03/02/17 07:50 Potassium 4.5 mmol/L (3.5-5.1) 03/02/17 07:50 Chloride 108 mmol/L (98-107) H 03/02/17 07:50 Carbon Dioxide 23 mmol/L (22-30) 03/02/17 07:50 Anion Gap 8 mmol/L 03/02/17 07:50 BUN 17 mg/dL (9-20) 03/02/17 07:50 Creatinine 0.93 mg/dL (0.66-1.25) 03/02/17 07:50 Est GFR (MDRD) Af Amer >60 (>60 ml/min/1.73 sqM) 03/02/17 07:50 Est GFR (MDRD) Non-Af >60 (>60 ml/min/1.73 sqM) 03/02/17 07:50 Glucose 95 mg/dL (74-99) 03/02/17 07:50 Plasma Lactic Acid Paddy 1.4 mmol/L (0.7-2.0) 03/01/17 18:36 Calcium 8.7 mg/dL (8.4-10.2) 03/02/17 07:50 Total Bilirubin 1.2 mg/dL (0.2-1.3) 03/02/17 07:50 AST 127 U/L (17-59) H 03/02/17 07:50 ALT 288 U/L (21-72) H 03/02/17 07:50 Alkaline Phosphatase 164 U/L (38-126) H 03/02/17 07:50 Total Protein 5.3 g/dL (6.3-8.2) L 03/02/17 07:50 Albumin 2.9 g/dL (3.5-5.0) L 03/02/17 07:50 Amylase 38 U/L (30-110) 03/02/17 07:50 Lipase 67 U/L (23-300) 03/02/17 07:50 Urine Color Yellow 03/01/17 18:11 Urine Appearance Clear (Clear) 03/01/17 18:11 Urine pH 5.5 (5.0-8.0) 03/01/17 18:11 Ur Specific [place] 1.015 (1.001-1.035) 03/01/17 18:11 Urine Protein Trace (Negative) H 03/01/17 18:11 Urine Glucose (UA) Negative (Negative) 03/01/17 18:11 Urine Ketones Negative (Negative) 03/01/17 18:11 Urine Blood Negative (Negative) 03/01/17 18:11 Urine Nitrite Negative (Negative) 03/01/17 18:11 Urine Bilirubin 1+ (Negative) H 03/01/17 18:11 Urine Urobilinogen 3.0 mg/dL (<2.0) 03/01/17 18:11 Ur Leukocyte Esterase Negative (Negative) 03/01/17 18:11 Heterophile Antibody Negative (Negative) 03/01/17 18:36 Influenza Type A RNA Not Detected (Not Detectd) 03/01/17 18:11 Influenza Type B (PCR) Not Detected (Not Detectd) 03/01/17 18:11 CBC & Chem 7: 03/03/17 07:06 03/03/17 07:06 Labs: Abnormal Lab Results - Last 24 Hours (Table) 03/01/17 03/01/17 03/01/17 Range/Units 18:11 18:36 18:36 RBC (4.30-5.90) m/uL Hgb 11.4 L (13.0-17.5) gm/dL Hct 36.2 L (39.0-53.0) % MCHC (31.0-37.0) g/dL RDW 19.3 H (11.5-15.5) % Neutrophils # (1.3-7.7) k/uL Lymphocytes # 0.6 L (1.0-4.8) k/uL Monocytes # (0-1.0) k/uL Sodium 135 L (137-145) mmol/L Chloride (98-107) mmol/L Glucose 121 H (74-99) mg/dL Total Bilirubin 1.4 H (0.2-1.3) mg/dL AST 269 H (17-59) U/L ALT 412 H (21-72) U/L Alkaline Phosphatase 214 H (38-126) U/L Total Protein (6.3-8.2) g/dL Albumin (3.5-5.0) g/dL Urine Protein Trace H (Negative) Urine Bilirubin 1+ H (Negative) 03/02/17 03/02/17 Range/Units 07:50 07:50 RBC 3.67 L (4.30-5.90) m/uL Hgb 9.6 L D (13.0-17.5) gm/dL Hct 31.4 L (39.0-53.0) % MCHC 30.5 L (31.0-37.0) g/dL RDW 17.4 H (11.5-15.5) % Neutrophils # 7.9 H (1.3-7.7) k/uL Lymphocytes # 0.6 L (1.0-4.8) k/uL Monocytes # 1.1 H (0-1.0) k/uL Sodium (137-145) mmol/L Chloride 108 H (98-107) mmol/L Glucose (74-99) mg/dL Total Bilirubin (0.2-1.3) mg/dL AST 127 H (17-59) U/L ALT 288 H (21-72) U/L Alkaline Phosphatase 164 H (38-126) U/L Total Protein 5.3 L (6.3-8.2) g/dL Albumin 2.9 L (3.5-5.0) g/dL Urine Protein (Negative) Urine Bilirubin (Negative) Microbiology - Last 24 Hours (Table) 03/01/17 18:11 Urine Culture - Preliminary Urine,Voided Assessment and Plan Plan: This is a 66-year-old male who is currently undergoing chemotherapy for pancreatic cancer. Patient presents with signs of sepsis most likely biliary sepsis. He does have history of bacteremia in the past. Currently, blood culture is status received patient is currently on meropenem and azithromycin. Azithromycin will be discontinued. Imaging of the biliary tract has been requested to evaluate the stent and any ongoing obstruction. Continue supportive care. Further recommendations as patient progresses. The above dictated assessment and findings were discussed with Dr. Spivey. The impression and plan of care have been directed as dictated. Chinyere Rutledge nurse practitioner acting as scribe for Dr. Spivey.
--- NOTE | 2017-03-02 15:25 | US ---
EXAMINATION TYPE: US liver DATE OF EXAM: 03/02/2017 COMPARISON: Ultrasound 05/25/2016, CT chest abdomen pelvis 01/29/2017 CLINICAL HISTORY: Fever, biliary obstruction; CA of biliary ducts, Liver mass per CT; CBD stent to du odenum. EXAM MEASUREMENTS: Liver Length: 13.2 cm Gallbladder Wall: 0.2 cm CBD: 0.9 cm Right Kidney: 10.1 x 5.9 x 4.9 cm Pancreas: heterogeneous with tail obscured by overlying bowel gas Liver: mildly heterogeneous; posterior right lobe hypoechoic, lobular mass = 3.4 x 3.7 x 3.4cm. This is better visualized on the ultrasound on the CT exam. (smaller mass at dome not seen.) Gallbladder: nonmobile, isoechoic wall echoes imaged in neck of gallbladder and noted best after pro ne positioning. Evidence for sonographic Cunha's sign: No CBD: dilated and may be result of patient's HX Right Kidney: wnl IMPRESSION: 1. Confirmation of 3 cm mass right lobe liver. This better visualized by ultrasound and CT.
--- NOTE | 2017-03-02 16:38 | PN ---
PROGRESS NOTE DATE OF SERVICE: 03/02/2017 This 66-year-old gentleman admitted with possible features of sepsis, also has history of pancreatic cancer. No chest pain. No palpitations. No fever. EXAM: Alert and oriented times three. Pulse 91, blood pressure 90/66, respirations 16, temperature 97.7, pulse ox 98% on room air. T-max 100.3. HEENT: Conjunctivae normal. NECK: No jugular venous distention. Cardiovascular: S1, S2 muffled. RESPIRATORY SYSTEM: Breath sounds diminished at the bases. No rhonchi and no crackles. Abdomen is soft, nontender. No mass palpable. Legs: No edema. No swelling. Central nervous system: No focal deficits. LAB STUDIES: WBC 10.9, hemoglobin 9.6. Otherwise bilirubin is 1.2. LFTs are still elevated. antibody is negative and cultures are negative. ASSESSMENT: 1. Fever, possible sepsis with ascending cholangitis. 2. History of pancreatic cancer, status post multiple stents and chemotherapy. 3. History of anemia, normocytic anemia of malignancy. 4. Hyponatremia. 5. Increased AST and alkaline phosphatase. 6. History of hypothyroidism. 7. History of multiple episodes of sepsis. 8. History of hernia surgery. RECOMMENDATIONS AND DISCUSSION: Recommend to continue current medications, continue with management and symptomatic treatment. IV antibiotics. Closely monitor. Follow the cultures. Repeat labs. Guarded prognosis because of multiple complex medical issues. Further recommendations to follow. MMTHANGL / ELION: [id number] / MTDD
--- NOTE | 2017-03-02 22:49 | P.CONS ---
History of Present Illness - Reason for Consult Consult date: 03/02/17 Fever. Ampullary cancer, on chemo - History of Present Illness Mr. 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 He had external biliary drain then had titanium internal biliary stent placement and mediport placement, chemo with [id number] was started Mar 2015. Ca 19-9 was followed, 88 on diagnosis, after 1 cycle of chemo it was 7, in May is was 11. On 06/13/2015 repeat liver MRI revealed possible progression of his disease and mFOLFOX was discontinued and he was started on gemzar/abraxane in June. Treatment follow up MRI in July revealed stable disease. Next follow up in Sep liver MRI revealed improvement in liver lesions. Treatment had dose reduction and then was held in Oct for progressive neuropathy. Pt was hospitalized on Nov for ecoli infection and obstructed biliary stent. Follow up CT for the next 4 months revealed no evidence of active disease. 04/17/2016 CT scan revealed new abdominal nodes and liver lesion and he was started on onivyde and 5FU April 2016, treatment follow up scans in June and August revealed further improvement in his disease. He has had 10 cycles, last treatment on 09/14/16. He had repeat admissions, in 10/08 as well as 12/08 for fever, felt to be likely related to the biliary tract. CT scans on 01/29/17 showed progression due to which the patient was resumed on chemotherapy with gemcitabine. He is receiving that weekly 3 followed by a week off. He just completed his cycle a week ago and is currently on a treatment break. The patient states that he developed high-grade fevers of 103, associated with chills, and weakness due to which he came into the emergency room. High- grade fevers were again noted in the ER. He was therefore admitted for further management. He denies any localizing symptoms such as abdominal pain, nausea, vomiting, significant cough, urinary complaints, or diarrhea. Review of Systems Constitutional: Reports chills, Reports fever, Reports poor appetite, Reports weakness Eyes: denies blurred vision, denies pain Ears: deny: decreased hearing, ear discharge, earache, tinnitus Ears, nose, mouth and throat: Denies headache, Denies sore throat Cardiovascular: Denies chest pain, Denies shortness of breath Respiratory: Denies cough Gastrointestinal: Reports as per HPI Genitourinary: Reports as per HPI (No specific complaints) Musculoskeletal: Denies myalgias Integumentary: Denies pruritus, Denies rash Neurological: Reports weakness, Denies numbness Psychiatric: Denies anxiety, Denies depression Endocrine: Denies fatigue, Denies weight change Hematologic/Lymphatic: Reports as per HPI Past Medical History Past Medical History: Cancer, Thyroid Disorder Additional Past Medical History / Comment(s): Testicular cancer, pancreatic cancer (diagnosed February 2015), sepsis, hypothyroid. History of Any Multi-Drug Resistant Organisms: None Reported Past Surgical History: Hernia Repair, Tonsillectomy Additional Past Surgical History / Comment(s): 1979 left testicle + lymph nodes removed along spine, right inguinal hernia repair x3 with mesh, hemorrhoidectomy (2011), colonoscopy (Jan 2015), titanium stent in pancreas (2015 @ [place]), restent in 01/2016 ([facility]), smart port. 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 He lives at home with his and son. There is a cat in the home. No recent travel or service. Past Drug Use History: None Reported Additional Drug Use History / Comment(s): . - Past Family History Mother Family Medical History: Cancer Additional Family Medical History / Comment(s): Cancer x 3, lived until age 89. Sister(s) Family Medical History: Cancer Additional Family Medical History / Comment(s): Breast cancer. Brother(s) Family Medical History: Cancer Father Family Medical History: Cancer Additional Family Medical History / Comment(s): Colon/bladder cancer x 3, at 94 Medications and Allergies Home Medications Medication Instructions Recorded Confirmed Type Docusate [Colace] 100 mg PO BID 11/19/15 03/01/17 History Levothyroxine Sodium [Synthroid] 88 mcg PO DAILY 11/19/15 03/01/17 History Fluticasone Nasal [place] [Flonase 2 spray EA NOSTRIL DAILY 05/23/16 03/01/17 History Nasal [place]] Multivitamins, Thera [Multivitamin 1 tab PO DAILY 05/23/16 03/01/17 History (formulary)] Acetaminophen Tab [Tylenol] 650 mg PO Q4-6H PRN 10/04/16 03/01/17 History Omeprazole [PriLOSEC] 20 mg PO HS 10/04/16 03/01/17 History Lactose-Reduced Food [Boost] 237 ml PO DAILY 03/01/17 03/01/17 History Loratadine [Claritin] 10 mg PO DAILY 03/01/17 03/01/17 History Allergies Allergy/AdvReac Type Severity Reaction Status Date / Time No Known Allergies Allergy Verified 03/01/17 18:36 Physical Exam Vitals: Vital Signs Temp Pulse Pulse Resp BP BP Pulse Ox 03/02/17 07:00 97.7 F 74 16 99/63 96 03/02/17 05:15 100.3 F H 91 03/02/17 03:02 98.9 F 76 03/02/17 00:20 89 16 03/01/17 21:57 99.0 F 03/01/17 20:45 101.4 F H 119 H 16 116/60 94 L 03/01/17 20:22 102 F H 108 H 18 127/68 95 03/01/17 19:10 103.7 F H 03/01/17 19:03 104.1 F H 121 H 20 135/84 96 03/01/17 17:31 100.5 F H 124 H 20 159/72 96 Intake and Output 03/01/17 03/02/17 03/02/17 22:59 06:59 14:59 Other: # Voids 1 Weight 88.451 kg 88.451 kg - Constitutional General appearance: no acute distress - EENT Eyes: EOMI, PERRLA ENT: hearing grossly normal, normal oropharynx - Neck Neck: no lymphadenopathy Thyroid: bilateral: normal size - Respiratory Respiratory: bilateral: CTA - Cardiovascular Rhythm: regular Heart sounds: normal: S1, S2 - Gastrointestinal General gastrointestinal: normal bowel sounds, soft - Integumentary Integumentary: normal - Neurologic Neurologic: CNII-XII intact - Musculoskeletal Musculoskeletal: strength equal bilaterally - Psychiatric Psychiatric: A&O x's 3, appropriate affect Results CBC & Chem 7: 03/02/17 07:50 03/02/17 07:50 Labs: Abnormal Lab Results - Last 24 Hours (Table) 03/01/17 03/01/17 03/01/17 Range/Units 18:11 18:36 18:36 RBC (4.30-5.90) m/uL Hgb 11.4 L (13.0-17.5) gm/dL Hct 36.2 L (39.0-53.0) % MCHC (31.0-37.0) g/dL RDW 19.3 H (11.5-15.5) % Neutrophils # (1.3-7.7) k/uL Lymphocytes # 0.6 L (1.0-4.8) k/uL Monocytes # (0-1.0) k/uL Sodium 135 L (137-145) mmol/L Chloride (98-107) mmol/L Glucose 121 H (74-99) mg/dL Total Bilirubin 1.4 H (0.2-1.3) mg/dL AST 269 H (17-59) U/L ALT 412 H (21-72) U/L Alkaline Phosphatase 214 H (38-126) U/L Total Protein (6.3-8.2) g/dL Albumin (3.5-5.0) g/dL Urine Protein Trace H (Negative) Urine Bilirubin 1+ H (Negative) 03/02/17 03/02/17 Range/Units 07:50 07:50 RBC 3.67 L (4.30-5.90) m/uL Hgb 9.6 L D (13.0-17.5) gm/dL Hct 31.4 L (39.0-53.0) % MCHC 30.5 L (31.0-37.0) g/dL RDW 17.4 H (11.5-15.5) % Neutrophils # 7.9 H (1.3-7.7) k/uL Lymphocytes # 0.6 L (1.0-4.8) k/uL Monocytes # 1.1 H (0-1.0) k/uL Sodium (137-145) mmol/L Chloride 108 H (98-107) mmol/L Glucose (74-99) mg/dL Total Bilirubin (0.2-1.3) mg/dL AST 127 H (17-59) U/L ALT 288 H (21-72) U/L Alkaline Phosphatase 164 H (38-126) U/L Total Protein 5.3 L (6.3-8.2) g/dL Albumin 2.9 L (3.5-5.0) g/dL Urine Protein (Negative) Urine Bilirubin (Negative) Microbiology - Last 24 Hours (Table) 03/01/17 18:11 Urine Culture - Preliminary Urine,Voided Chest x-ray: report reviewed CT scan - abdomen: report reviewed CT scan - pelvis: report reviewed Assessment and Plan (1) Fever Narrative/Plan: the patient has had previous such episodes without a definite source. It was presumed, given his history that the biliary tract was involved. During this admission through, the patient does not have any localizing signs or symptoms. Fever has improved with initiation of antibiotics and the patient feels much better. Cultures are pending. Liver enzymes were noted to be elevated, compared to previous baseline from . This raises the possibility of a biliary source. Ultrasound will be ordered to check for evidence of recurrent dietitian/stent blockage. Continue antibiotics. White count is normal. Current Visit: Yes Status: Acute Code(s): R50.9 - FEVER, UNSPECIFIED SNOMED Code(s): 129390870 (2) Pancreatic cancer Narrative/Plan: diagnoses and treatment history is as described above. Patient has subjectively tolerated Gemzar well. He is currently on his week off. Monitor counts in case of drops related to chemotherapy and intercurrent infection. Supplement as needed in that case. Current Visit: Yes Status: Acute Code(s): C25.9 - MALIGNANT NEOPLASM OF PANCREAS, UNSPECIFIED SNOMED Code(s): 971061481
--- NOTE | 2017-03-02 23:30 | P.CON ---
Consult Note - . Consult date: 03/02/17 Assessment/Plan:: This is a 66-year-old male who has a past medical history significant for pancreatic cancer currently on chemotherapy under the care of Dr. Dominguez diagnosed in February 2015. He is on Gemzar for 3 weeks and off 1 week. Patient states he was completely off chemotherapy for 5 months and this was just resumed 3 weeks ago and he completed on Wednesday. On Wednesday he had a temperature of 99.7 and was taking Tylenol with improvement but this continued to worsen over the weekend and by Wednesday the fevers were significant with chills and rigors. He states he was a little nauseated which is new for him. He does have some mild shortness of breath and mild cough that is nonproductive that has been chronic for him. He has shortness of breath with exertion. He denies having any abdominal pain, vomiting, diarrhea, dysuria. He denies any change in his appetite. He is able to swallow without any difficulties or choking episodes. He has been able to ambulate without difficulty. He has not had any falls. He came into [facility] emergency center where he was found have a temperature of 104.1 with tachycardia. White count was 6.1. Liver function tests were elevated area influenza testing was negative, heterophile negative, amylase and lipase negative. Urinalysis was clear with nitrate and leukoesterase negative and urine culture in progress. Blood cultures status received. Chest x-ray shows trace left pleural effusion. Patient does have history of biliary stents done at [facility]. He does not recall when one was last placed. Please see the consult note is dictated by nurse practitioner Mrs Chinyere Rutledge. Patient is noted infectious disease service. Presents now with the onset of fevers chills feeling very poorly. Elevated liver function tests are noted. As noted he does have a stent in place. Has recently received chemotherapy. Likely has a biliary source for the current bout of sepsis. Antimicrobial therapy is altered to meropenem. Cultures are in process. Imaging of the biliary tract has been requested to evaluate the stent in any ongoing obstruction. Follow blood cultures are been requested to evaluate the sepsis. He 14 started to improve a bit. He does have low albumin and will need improved protein intake to assist in his healing. I agree with evaluation, assessment and plan is dictated by nurse practitioner Mrs. Chinyere Rutledge.
[2017-03-03] MEDS: LEVOTHYROXINE 88 MCG TAB PO SCH (06:49)
[2017-03-03 07:19] LABS: Anisocytosis Slight; HCT 32.1 % (39.0-53.0); HGB 9.7 gm/dL (13.0-17.5); Hypochromasia Moderate; MCH 26.2 pg (25.0-35.0); MCHC 30.3 g/dL (31.0-37.0); MCV 86.5 fL (80.0-100.0); Mean Platelet Volume 8.4; Platelet Count 205 k/uL (150-450); RBC 3.71 m/uL (4.30-5.90); RDW 19.5 % (11.5-15.5); WBC 5.3 k/uL (3.8-10.6)
[2017-03-03 07:42] LABS: ALT 229 U/L (21-72); AST 84 U/L (17-59); Albumin 2.9 g/dL (3.5-5.0); Alkaline Phosphatase 162 U/L (38-126); Anion Gap 8 mmol/L; Blood Urea Nitrogen 13 mg/dL (9-20); Calcium 9.1 mg/dL (8.4-10.2); Carbon Dioxide 27 mmol/L (22-30); Chloride 106 mmol/L (98-107); Glucose 109 mg/dL (74-99); Potassium 4.9 mmol/L (3.5-5.1); Sodium 141 mmol/L (137-145); Total Bilirubin 1.1 mg/dL (0.2-1.3); Total Protein 5.5 g/dL (6.3-8.2)
[2017-03-03 08:26] LABS: Monocytes # (M) 0.95 k/uL (0-1.0); Myelocytes # (M) 0.05 k/uL (0); Myelocytes % 1 %; Nucleated Red Blood Cells 0 /100 WBC (0-0)
[2017-03-03 08:27] LABS: Basophils # (M) 0.05 k/uL (0-0.2); Eosinophils # (M) 0.11 k/uL (0-0.7); Neutrophils % (M) 66 %; Total Cells Counted 200
[2017-03-03 08:28] LABS: Poikilocytosis (M) Present; Toxic Granulation Present
[2017-03-03] MEDS: FLUTICASONE 50MCG/SPRAY NASAL 16GM EA NOSTRIL SCH (09:20)
[2017-03-03] MEDS: MULTIVITAMINS, THERA 1 EACH TAB PO SCH (09:21)
[2017-03-03] MEDS: SODIUM CHLORIDE 0.9% 1,000 ML IV STA (09:21)
[2017-03-03] MEDS: DOCUSATE 100 MG CAP PO SCH ×2 (09:21→20:57)
[2017-03-03] MEDS: LORATADINE 10 MG TAB PO SCH (09:21)
[2017-03-03] MEDS: ENOXAPARIN 40 MG/0.4 ML SYRINGE SQ SCH ×2 (09:21→09:25)
[2017-03-03] MEDS: PANTOPRAZOLE 40 MG/10 ML VIAL IV SCH (09:21)
[2017-03-03] MEDS: MEROPENEM 1 GM in SODIUM CHLORIDE 0.9% 100 ML IVPB SCH ×3 (09:21→23:55)
[2017-03-03] MEDS: ACETAMINOPHEN TAB 500 MG TAB PO PRN (14:20)
--- NOTE | 2017-03-03 19:09 | P.PN ---
Subjective Progress Note Date: 03/03/17 The patient has not had any recurrent fevers since yesterday. He is tolerating antibiotics well. Overall he feels quite well. Appetite is normal. No history of any nausea, vomiting, or diarrhea. Objective - Vital Signs Vital signs: Vital Signs Temp 99.2 F 03/03/17 15:00 Pulse 81 03/03/17 15:00 Resp 16 03/03/17 15:00 BP 150/80 03/03/17 15:00 Pulse Ox 97 03/03/17 07:00 Intake & Output 03/03/17 03/03/17 03/04/17 06:59 18:59 06:59 Intake Total 450 Balance 450 Intake: IV 350 NS @ 50 ml/hr 350 Intake, IV Titration 100 Amount Meropenem 1 gm In Sodium 100 Chloride 0.9% 100 ml @ 100 mls/hr IVPB Q8HR [facility] Rx#:[id number] Other: # Voids 1 - Constitutional General appearance: Present: no acute distress - EENT Eyes: Present: EOMI, PERRLA ENT: Present: hearing grossly normal, normal oropharynx - Respiratory Respiratory: bilateral: CTA - Cardiovascular Rhythm: regular Heart sounds: normal: S1, S2 - Gastrointestinal General gastrointestinal: Present: normal bowel sounds, soft - Integumentary Integumentary: Present: normal - Neurologic Neurologic: Present: CNII-XII intact - Musculoskeletal Musculoskeletal: Present: strength equal bilaterally - Psychiatric Psychiatric: Present: A&O x's 3 - Labs CBC & Chem 7: 03/03/17 07:06 03/03/17 07:06 Labs: Abnormal Lab Results - Last 24 Hours (Table) 03/03/17 03/03/17 Range/Units 07:06 07:06 RBC 3.71 L (4.30-5.90) m/uL Hgb 9.7 L (13.0-17.5) gm/dL Hct 32.1 L (39.0-53.0) % MCHC 30.3 L (31.0-37.0) g/dL RDW 19.5 H (11.5-15.5) % Lymphocytes # (Manual) 0.80 L (1.0-4.8) k/uL Myelocytes # (Manual) 0.05 H (0) k/uL Glucose 109 H (74-99) mg/dL AST 84 H (17-59) U/L ALT 229 H (21-72) U/L Alkaline Phosphatase 162 H (38-126) U/L Total Protein 5.5 L (6.3-8.2) g/dL Albumin 2.9 L (3.5-5.0) g/dL Microbiology - Last 24 Hours (Table) 03/01/17 18:11 Urine Culture - Final Urine,Voided 03/01/17 18:36 Blood Culture - Preliminary Blood No Growth after 24 hours Assessment and Plan (1) Fever Narrative/Plan: This has resolved since starting antibiotics. This is therefore presumed to be infectious in origin. Cultures are negative so far. On admission liver enzymes were elevated, but have diminished since starting antibiotics. Therefore a biliary source is likely. Continue antibiotics. The patient's white count is normal. If cultures remain negative for the next 24 hours he can likely be discharged home on oral antibiotics if afebrile. Chemotherapy-related fever and liver enzyme elevation is possible though less likely. The patient's ultrasound did show some dilatation of the CBD. Liver enzymes were elevated compared to baseline, but have diminished steadily since admission. Therefore this argues against recurrent obstruction of the stent. Continue antibiotics and continue to follow liver enzymes. If there is a change in the future, indicating recurrent obstruction, and GI will be consulted. Current Visit: Yes Status: Acute Code(s): R50.9 - FEVER, UNSPECIFIED SNOMED Code(s): 024265072 (2) Pancreatic cancer Current Visit: Yes Status: Acute Code(s): C25.9 - MALIGNANT NEOPLASM OF PANCREAS, UNSPECIFIED SNOMED Code(s): 239787419
--- NOTE | 2017-03-03 22:55 | P.PN ---
Subjective Progress Note Date: 03/03/17 Principal diagnosis: Fever This is a 66-year-old male who has a past medical history significant for pancreatic cancer currently on chemotherapy under the care of Dr. Dominguez diagnosed in February 2015. He is on Gemzar for 3 weeks and off 1 week. Patient states he was completely off chemotherapy for 5 months and this was just resumed 3 weeks ago and he completed on Wednesday. On Wednesday he had a temperature of 99.7 and was taking Tylenol with improvement but this continued to worsen over the weekend and by Wednesday the fevers were significant with chills and rigors. He states he was a little nauseated which is new for him. He does have some mild shortness of breath and mild cough that is nonproductive that has been chronic for him. He has shortness of breath with exertion. He denies having any abdominal pain, vomiting, diarrhea, dysuria. He denies any change in his appetite. He is able to swallow without any difficulties or choking episodes. He has been able to ambulate without difficulty. He has not had any falls. He came into [facility] emergency center where he was found have a temperature of 104.1 with tachycardia. White count was 6.1. Liver function tests were elevated area influenza testing was negative, heterophile negative, amylase and lipase negative. Urinalysis was clear with nitrate and leukoesterase negative and urine culture in progress. Blood cultures status received. Chest x-ray shows trace left pleural effusion. Patient does have history of biliary stents done at [facility]. He does not recall when one was last placed. Patient had high-grade fever to admission. This is now improving. However he still feeling warm and flushed this evening. Temperatures of 99 are being noted. Does feel better than admission Objective - Vital Signs Vital signs: Vital Signs Temp 98.9 F 03/03/17 19:43 Pulse 81 03/03/17 15:00 Resp 16 03/03/17 15:00 BP 150/80 03/03/17 15:00 Pulse Ox 97 03/03/17 07:00 Intake & Output 03/03/17 03/03/17 03/04/17 06:59 18:59 06:59 Intake Total 450 Balance 450 Intake: IV 350 NS @ 50 ml/hr 350 Intake, IV Titration 100 Amount Meropenem 1 gm In Sodium 100 Chloride 0.9% 100 ml @ 100 mls/hr IVPB Q8HR [facility] Rx#:[id number] Other: # Voids 1 - Exam Gen: This is a 66-year-old male. He is sitting up in bed and appears to be in no acute distress. Is a bit flushed HEENT: Head is atraumatic, normocephalic. Pupils equal, round. Sclerae is anicteric. Conjunctiva pink. Mucous members of the mouth are moist. Lesion on the right lateral tongue. NECK: Supple. No JVD. No lymphadenopathy. No thyromegaly. LUNGS: Clear to auscultation. No wheezes or rhonchi. No intercostal retractions. HEART: Regular rate and rhythm. No murmur. ABDOMEN: Soft. Bowel sounds are present. No masses. No tenderness. EXTREMITIES: No pedal edema. No calf tenderness. Dorsalis pedis is +2 bilaterally. NEUROLOGICAL: Patient is awake, alert and oriented x3. - Labs CBC & Chem 7: 03/03/17 07:06 03/03/17 07:06 Labs: Abnormal Lab Results - Last 24 Hours (Table) 03/03/17 03/03/17 Range/Units 07:06 07:06 RBC 3.71 L (4.30-5.90) m/uL Hgb 9.7 L (13.0-17.5) gm/dL Hct 32.1 L (39.0-53.0) % MCHC 30.3 L (31.0-37.0) g/dL RDW 19.5 H (11.5-15.5) % Lymphocytes # (Manual) 0.80 L (1.0-4.8) k/uL Myelocytes # (Manual) 0.05 H (0) k/uL Glucose 109 H (74-99) mg/dL AST 84 H (17-59) U/L ALT 229 H (21-72) U/L Alkaline Phosphatase 162 H (38-126) U/L Total Protein 5.5 L (6.3-8.2) g/dL Albumin 2.9 L (3.5-5.0) g/dL Microbiology - Last 24 Hours (Table) 03/01/17 18:36 Blood Culture - Preliminary Blood No Growth after 48 hours 03/01/17 18:11 Urine Culture - Final Urine,Voided Laboratory Results WBC 5.3 k/uL (3.8-10.6) 03/03/17 07:06 RBC 3.71 m/uL (4.30-5.90) L 03/03/17 07:06 Hgb 9.7 gm/dL (13.0-17.5) L 03/03/17 07:06 Hct 32.1 % (39.0-53.0) L 03/03/17 07:06 MCV 86.5 fL (80.0-100.0) 03/03/17 07:06 MCH 26.2 pg (25.0-35.0) 03/03/17 07:06 MCHC 30.3 g/dL (31.0-37.0) L 03/03/17 07:06 RDW 19.5 % (11.5-15.5) H 03/03/17 07:06 Plt Count 205 k/uL (150-450) 03/03/17 07:06 Neutrophils % 78 % 03/02/17 07:50 Neutrophils % (Manual) 66 % 03/03/17 07:06 Lymphocytes % 6 % 03/02/17 07:50 Lymphocytes % (Manual) 15 % 03/03/17 07:06 Monocytes % 11 % 03/02/17 07:50 Monocytes % (Manual) 18 % 03/03/17 07:06 Eosinophils % 0 % 03/02/17 07:50 Eosinophils % (Manual) 2 % 03/03/17 07:06 Basophils % 0 % 03/02/17 07:50 Basophils % (Manual) 1 % 03/03/17 07:06 Myelocytes % 1 % 03/03/17 07:06 Neutrophils # 7.9 k/uL (1.3-7.7) H 03/02/17 07:50 Neutrophils # (Manual) 3.50 k/uL (1.3-7.7) 03/03/17 07:06 Lymphocytes # 0.6 k/uL (1.0-4.8) L 03/02/17 07:50 Lymphocytes # (Manual) 0.80 k/uL (1.0-4.8) L 03/03/17 07:06 Monocytes # 1.1 k/uL (0-1.0) H 03/02/17 07:50 Monocytes # (Manual) 0.95 k/uL (0-1.0) 03/03/17 07:06 Eosinophils # 0.0 k/uL (0-0.7) 03/02/17 07:50 Eosinophils # (Manual) 0.11 k/uL (0-0.7) 03/03/17 07:06 Basophils # 0.0 k/uL (0-0.2) 03/02/17 07:50 Basophils # (Manual) 0.05 k/uL (0-0.2) 03/03/17 07:06 Myelocytes # (Manual) 0.05 k/uL (0) H 03/03/17 07:06 Nucleated RBCs 0 /100 WBC (0-0) 03/03/17 07:06 Manual Slide Review Performed 03/03/17 07:06 Toxic Granulation Present 03/03/17 07:06 Hypochromasia Moderate 03/03/17 07:06 Poikilocytosis (manual Present 03/03/17 07:06 Anisocytosis Slight 03/03/17 07:06 Sodium 141 mmol/L (137-145) 03/03/17 07:06 Potassium 4.9 mmol/L (3.5-5.1) 03/03/17 07:06 Chloride 106 mmol/L (98-107) 03/03/17 07:06 Carbon Dioxide 27 mmol/L (22-30) 03/03/17 07:06 Anion Gap 8 mmol/L 03/03/17 07:06 BUN 13 mg/dL (9-20) 03/03/17 07:06 Creatinine 0.90 mg/dL (0.66-1.25) 03/03/17 07:06 Est GFR (MDRD) Af Amer >60 (>60 ml/min/1.73 sqM) 03/03/17 07:06 Est GFR (MDRD) Non-Af >60 (>60 ml/min/1.73 sqM) 03/03/17 07:06 Glucose 109 mg/dL (74-99) H 03/03/17 07:06 Plasma Lactic Acid P[place] 1.4 mmol/L (0.7-2.0) 03/01/17 18:36 Calcium 9.1 mg/dL (8.4-10.2) 03/03/17 07:06 Total Bilirubin 1.1 mg/dL (0.2-1.3) 03/03/17 07:06 AST 84 U/L (17-59) H 03/03/17 07:06 ALT 229 U/L (21-72) H 03/03/17 07:06 Alkaline Phosphatase 162 U/L (38-126) H 03/03/17 07:06 Total Protein 5.5 g/dL (6.3-8.2) L 03/03/17 07:06 Albumin 2.9 g/dL (3.5-5.0) L 03/03/17 07:06 Amylase 38 U/L (30-110) 03/02/17 07:50 Lipase 67 U/L (23-300) 03/02/17 07:50 Urine Color Yellow 03/01/17 18:11 Urine Appearance Clear (Clear) 03/01/17 18:11 Urine pH 5.5 (5.0-8.0) 03/01/17 18:11 Ur Specific [place] 1.015 (1.001-1.035) 03/01/17 18:11 Urine Protein Trace (Negative) H 03/01/17 18:11 Urine Glucose (UA) Negative (Negative) 03/01/17 18:11 Urine Ketones Negative (Negative) 03/01/17 18:11 Urine Blood Negative (Negative) 03/01/17 18:11 Urine Nitrite Negative (Negative) 03/01/17 18:11 Urine Bilirubin 1+ (Negative) H 03/01/17 18:11 Urine Urobilinogen 3.0 mg/dL (<2.0) 03/01/17 18:11 Ur Leukocyte Esterase Negative (Negative) 03/01/17 18:11 Heterophile Antibody Negative (Negative) 03/01/17 18:36 Influenza Type A RNA Not Detected (Not Detectd) 03/01/17 18:11 Influenza Type B (PCR) Not Detected (Not Detectd) 03/01/17 18:11 Microbiology 03/01/17 18:36 Blood Blood Culture - Preliminary No Growth after 48 hours 03/01/17 18:11 Urine,Voided Urine Culture - Final Assessment and Plan (1) Fever Narrative/Plan: 66 show male presents to hospital with fever and feeling very poorly. He has the extensive history of his pancreatic cancer and is currently receiving Gemzar on a 3 week on 1 week off schedule. He is developed the high-grade fevers and chills as well as evidence of some further obstructive his biliary tract. He does have a stent in place. Antimicrobial therapy is now starting to feel better. However this evening he is still coughing a bit flushed and not quite back to normal. Case is discussed with the hospitalist. Hopefully he 'll be improved in the morning and he can be transitioned to oral levofloxacin to complete his course of therapy can be discharged home. Patient stands importance of adequate protein intake. He will follow with oncology. Current Visit: Yes Status: Acute Code(s): R50.9 - FEVER, UNSPECIFIED SNOMED Code(s): 045866956 (2) Anahy-ampullary carcinoma Current Visit: No Status: Acute Code(s): C24.8 - MALIGNANT NEOPLASM OF OVERLAPPING SITES OF BILIARY TRACT SNOMED Code(s): 093500557 (3) Sepsis Current Visit: Yes Status: Acute Code(s): A41.9 - SEPSIS, UNSPECIFIED ORGANISM SNOMED Code(s): 12361126
[2017-03-04] MEDS: LEVOTHYROXINE 88 MCG TAB PO SCH (06:16)
[2017-03-04] MEDS ORDERED: PANTOPRAZOLE 40 MG TABLET PO SCH (07:30)
[2017-03-04 07:44] VITALS: PULSE 76
[2017-03-04 08:12] LABS: Anisocytosis Slight; Basophils % (A) 0 %; Eosinophils % (A) 1 %; HCT 35.7 % (39.0-53.0); HGB 11.2 gm/dL (13.0-17.5); Hypochromasia Slight; Lymphocytes % (A) 21 %; MCH 26.7 pg (25.0-35.0); MCHC 31.5 g/dL (31.0-37.0); MCV 84.8 fL (80.0-100.0); Monocytes # (A) 0.5 k/uL (0-1.0); Monocytes % (A) 11 %; Neutrophils % (A) 63 %; Platelet Count 310 k/uL (150-450); RBC 4.21 m/uL (4.30-5.90); RDW 17.8 % (11.5-15.5); WBC 4.8 k/uL (3.8-10.6)
[2017-03-04] MEDS: MEROPENEM 1 GM in SODIUM CHLORIDE 0.9% 100 ML IVPB SCH (08:16)
[2017-03-04] MEDS: ENOXAPARIN 40 MG/0.4 ML SYRINGE SQ SCH ×2 (08:17→08:21)
[2017-03-04] MEDS: DOCUSATE 100 MG CAP PO SCH (08:18)
[2017-03-04] MEDS: LORATADINE 10 MG TAB PO SCH (08:18)
[2017-03-04] MEDS: FLUTICASONE 50MCG/SPRAY NASAL 16GM EA NOSTRIL SCH (08:18)
[2017-03-04] MEDS: MULTIVITAMINS, THERA 1 EACH TAB PO SCH (08:18)
[2017-03-04 08:48] LABS: ALT 206 U/L (21-72); AST 68 U/L (17-59); Albumin 3.7 g/dL (3.5-5.0); Alkaline Phosphatase 208 U/L (38-126); Anion Gap 10 mmol/L; Blood Urea Nitrogen 12 mg/dL (9-20); Calcium 9.6 mg/dL (8.4-10.2); Carbon Dioxide 26 mmol/L (22-30); Chloride 105 mmol/L (98-107); Glucose 84 mg/dL (74-99); Sodium 141 mmol/L (137-145); Total Bilirubin 0.7 mg/dL (0.2-1.3); Total Protein 6.4 g/dL (6.3-8.2)
[2017-03-04 08:49] LABS: Potassium 4.2 mmol/L (3.5-5.1)
[2017-03-04 15:34] VITALS: BP 130/80; RESP 18; TEMP 98.2
--- NOTE | 2017-03-04 15:38 | P.PN ---
Subjective Progress Note Date: 03/03/17 Progress Note being dictated for Dr. Owen Interval history: This a 66 year old gentleman with history of pancreatic cancer , admitted with possible sepsis, ascending cholangitis and multiple other medical issues. Maintained on IV antibiotics as per infectious disease. Good diet intake, ambulating in hallway, tolerated exertion well. Initially had planned for discharge, but this afternoon patient spiked a low grade fever.denies chest pain, palpitations or increasing shortness of breath.afebrile , normal WBC,preliminary blood cultures negative. T bili and LFTs continue to improve. Objective - Vital Signs Vital signs: Vital Signs Temp 99.2 F 03/03/17 15:00 Pulse 81 03/03/17 15:00 Resp 16 03/03/17 15:00 BP 150/80 03/03/17 15:00 Pulse Ox 97 03/03/17 07:00 Intake & Output 03/03/17 03/03/17 03/04/17 06:59 18:59 06:59 Intake Total 450 Balance 450 Intake: IV 350 NS @ 50 ml/hr 350 Intake, IV Titration 100 Amount Meropenem 1 gm In Sodium 100 Chloride 0.9% 100 ml @ 100 mls/hr IVPB Q8HR [facility] Rx#:[id number] Other: # Voids 1 - Exam PHYSICAL EXAM: VITAL SIGNS: [as above] GENERAL: sitting up in bed, no acute distress HEENT: Conjunctivae normal. eyes normal. oral mucosa moist NECK: No JVD. No thyroid enlargement. No LNs CARDIOVASCULAR: S1, S2 muffled. No murmur RESPIRATION: Breath sounds diminished in the bases. No rhonchi or crackles. No bronchial breathing. ABDOMEN: Soft, nontender . No guarding. no masses palpable. Bowel sounds positive. LEGS: no edema, no swelling PSYCHIATRY: Alert and oriented -3, mood and affect normal. NERVOUS SYSTEM: Cranial N 2-12 grossly normal. Moves all 4 limbs. Diffuse weakness No focal deficits. No sensory deficit. Skin: no ulcer no rash Joints: No active swelling. No inflammation. - Labs CBC & Chem 7: 03/04/17 07:33 03/04/17 07:33 Labs: Abnormal Lab Results - Last 24 Hours (Table) 03/03/17 03/03/17 Range/Units 07:06 07:06 RBC 3.71 L (4.30-5.90) m/uL Hgb 9.7 L (13.0-17.5) gm/dL Hct 32.1 L (39.0-53.0) % MCHC 30.3 L (31.0-37.0) g/dL RDW 19.5 H (11.5-15.5) % Lymphocytes # (Manual) 0.80 L (1.0-4.8) k/uL Myelocytes # (Manual) 0.05 H (0) k/uL Glucose 109 H (74-99) mg/dL AST 84 H (17-59) U/L ALT 229 H (21-72) U/L Alkaline Phosphatase 162 H (38-126) U/L Total Protein 5.5 L (6.3-8.2) g/dL Albumin 2.9 L (3.5-5.0) g/dL Microbiology - Last 24 Hours (Table) 03/01/17 18:11 Urine Culture - Final Urine,Voided 03/01/17 18:36 Blood Culture - Preliminary Blood No Growth after 24 hours Assessment and Plan Assessment: 1. [fever, possible sepsis with ascending cholangitis]. 2. [history of pancreatic cancer, status post multiple stents and chemotherapy]. 3. [history of anemia, normocytic anemia of malignancy]. 4. [elevated LFTs, present on admission, improving]. plan:continuing current medication regime ,monitoring and symptomatic treatment. Antibiotics as per infectious disease. Continue following cultures closely with discharge planning in progress for tomorrow if patient remains afebrile and clearance obtained from infectious disease and oncology. Further recommendations to follow. The impression and plan of care has been dictated as directed. : I performed a history and examination of this patient, discussed the same with the dictator. I agree with the dictator's note ,documented as a scribe. Any additional findings or plans will be noted.
--- NOTE | 2017-03-04 15:46 | P.DS ---
Providers Date of admission: 03/01/17 19:33 Expected date of discharge: 03/04/17 Attending physician: Brandon Owen Consults: 03/01/17 19:35 Consult Physician Urgent Consulting Provider: Francisco Dominguez Consult Reason/Comments: fever, pancreatic cancer Do you want consulting provider notified?: Yes 03/01/17 19:36 Consult Physician Urgent Consulting Provider: Patrick Spivey Consult Reason/Comments: fever Do you want consulting provider notified?: Yes Primary care physician: Shelby [facility] Course: Final Diagnoses: 1. [fever, possible sepsis with ascending cholangitis]. 2. [history of pancreatic cancer, status post multiple stents and chemotherapy]. 3. [history of anemia, normocytic anemia of malignancy]. 4. [elevated LFTs, present on admission, improving]. Hospital course:This a 66 year old gentleman with history of pancreatic cancer, admitted with possible sepsis, ascending cholangitis and multiple other medical issues. evaluated by oncology and ID. Maintained on IV antibiotics as per infectious disease.urine and preliminary blood cultures negative. ultrasound of liver reported 3 cm mass right lobe liver.liver enzymes elevated on admission, with continued improvement, therefore do not suspect recurrent obstruction of stent as per oncology.significant clinical improvement.patient has been cleared for discharge by all consults. Patient is being discharged home in a stable condition with guarded prognosis. Physical exam:VSS,cardiovascular: Regular S1 and S2, no edema, respirations, bilateral bases diminished, no rhonchi or crackles, abdomen soft nontender positive bowel sounds, psychiatry alert and oriented 3. mood and Affect normal. No focal deficits. Microbiology 03/01/17 18:36 Blood Blood Culture - Preliminary No Growth after 48 hours 03/01/17 18:11 Urine,Voided Urine Culture - Final The impression and plan of care has been dictated as directed. : I performed a history and examination of this patient, discussed the same with the dictator. I agree with the dictator's note ,documented as a scribe. Any additional findings or plans will be noted. Time taken: 35 minutes Patient Condition at Discharge: Stable Plan - Discharge Summary New Discharge Prescriptions: New Levofloxacin [Levaquin] 500 mg PO DAILY #7 tab Continue Docusate [Colace] 100 mg PO BID Levothyroxine Sodium [Synthroid] 88 mcg PO DAILY Multivitamins, Thera [Multivitamin (formulary)] 1 tab PO DAILY Fluticasone Nasal [place] [Flonase Nasal [place]] 2 spray EA NOSTRIL DAILY Omeprazole [PriLOSEC] 20 mg PO HS Acetaminophen Tab [Tylenol] 650 mg PO Q4-6H PRN PRN Reason: Fever Loratadine [Claritin] 10 mg PO DAILY Lactose-Reduced Food [Boost] 237 ml PO DAILY Discharge Medication List Docusate [Colace] 100 mg PO BID 11/19/15 [History] Levothyroxine Sodium [Synthroid] 88 mcg PO DAILY 11/19/15 [History] Fluticasone Nasal [place] [Flonase Nasal [place]] 2 spray EA NOSTRIL DAILY 05/23/16 [History] Multivitamins, Thera [Multivitamin (formulary)] 1 tab PO DAILY 05/23/16 [History ] Acetaminophen Tab [Tylenol] 650 mg PO Q4-6H PRN 10/04/16 [History] Omeprazole [PriLOSEC] 20 mg PO HS 10/04/16 [History] Lactose-Reduced Food [Boost] 237 ml PO DAILY 03/01/17 [History] Loratadine [Claritin] 10 mg PO DAILY 03/01/17 [History] Levofloxacin [Levaquin] 500 mg PO DAILY #7 tab 03/03/17 [Rx] Follow up Appointment(s)/Referral(s): Jensen Oliver MD [STAFF PHYSICIAN] - 03/05/17 3:00 pm Shelby Styles MD [Primary Care Provider] - 03/09/17 3:30 pm Ambulatory/Diagnostic Orders: Complete Blood Count w/diff [LAB.AMB] Time Frame: 3 Days, Location: Determined By Patient Patient Instructions/Handouts: Levofloxacin (By mouth), Fever in Adults (GEN), Pancreatic Cancer (DC) Activity/Diet/Wound Care/Special Instructions: Diet: regular Diet activity: limited till f/u
--- NOTE | 2017-03-04 23:16 | P.PN ---
Subjective Progress Note Date: 03/04/17 Principal diagnosis: Fever This is a 66-year-old male who has a past medical history significant for pancreatic cancer currently on chemotherapy under the care of Dr. Dominguez diagnosed in February 2015. He is on Gemzar for 3 weeks and off 1 week. Patient states he was completely off chemotherapy for 5 months and this was just resumed 3 weeks ago and he completed on Wednesday. On Wednesday he had a temperature of 99.7 and was taking Tylenol with improvement but this continued to worsen over the weekend and by Wednesday the fevers were significant with chills and rigors. He states he was a little nauseated which is new for him. He does have some mild shortness of breath and mild cough that is nonproductive that has been chronic for him. He has shortness of breath with exertion. He denies having any abdominal pain, vomiting, diarrhea, dysuria. He denies any change in his appetite. He is able to swallow without any difficulties or choking episodes. He has been able to ambulate without difficulty. He has not had any falls. He came into [facility] emergency center where he was found have a temperature of 104.1 with tachycardia. White count was 6.1. Liver function tests were elevated area influenza testing was negative, heterophile negative, amylase and lipase negative. Urinalysis was clear with nitrate and leukoesterase negative and urine culture in progress. Blood cultures status received. Chest x-ray shows trace left pleural effusion. Patient does have history of biliary stents done at [facility]. He does not recall when one was last placed. Patient had high-grade fever earlier in admission and is now considerably better. He was continued to have low-grade fever yesterday with flushing. This is now resolved. He is eating well. Has no other new complaints. Ready for discharge. Objective - Vital Signs Vital signs: Vital Signs Temp 98.2 F 03/04/17 15:00 Pulse 76 03/04/17 15:00 Resp 18 03/04/17 15:00 BP 130/80 03/04/17 15:00 Pulse Ox 98 03/04/17 15:00 Intake & Output 03/04/17 03/04/17 03/05/17 06:59 18:59 06:59 Intake Total 500 100 Balance 500 100 Intake: Intake, IV Titration 100 Amount Meropenem 1 gm In Sodium 100 Chloride 0.9% 100 ml @ 100 mls/hr IVPB Q8HR [facility] Rx#:[id number] Oral 500 Other: Voiding Method Toilet Toilet # Voids 1 3 - Exam Gen: This is a 66-year-old male. He is sitting up in bed and appears to be in no acute distress. No longer flushed HEENT: Head is atraumatic, normocephalic. Pupils equal, round. Sclerae is anicteric. Conjunctiva pink. Mucous members of the mouth are moist. Lesion on the right lateral tongue. NECK: Supple. No JVD. No lymphadenopathy. No thyromegaly. LUNGS: Clear to auscultation. No wheezes or rhonchi. No intercostal retractions. HEART: Regular rate and rhythm. No murmur. ABDOMEN: Soft. Bowel sounds are present. No masses. No tenderness. EXTREMITIES: No pedal edema. No calf tenderness. Dorsalis pedis is +2 bilaterally. NEUROLOGICAL: Patient is awake, alert and oriented x3. - Labs CBC & Chem 7: 03/04/17 07:33 03/04/17 07:33 Labs: Abnormal Lab Results - Last 24 Hours (Table) 03/04/17 03/04/17 Range/Units 07:33 07:33 RBC 4.21 L (4.30-5.90) m/uL Hgb 11.2 L (13.0-17.5) gm/dL Hct 35.7 L (39.0-53.0) % RDW 17.8 H (11.5-15.5) % AST 68 H (17-59) U/L ALT 206 H (21-72) U/L Alkaline Phosphatase 208 H (38-126) U/L Microbiology - Last 24 Hours (Table) 03/01/17 18:36 Blood Culture - Preliminary Blood No Growth after 72 hours Laboratory Results WBC 4.8 k/uL (3.8-10.6) 03/04/17 07:33 RBC 4.21 m/uL (4.30-5.90) L 03/04/17 07:33 Hgb 11.2 gm/dL (13.0-17.5) L 03/04/17 07:33 Hct 35.7 % (39.0-53.0) L 03/04/17 07:33 MCV 84.8 fL (80.0-100.0) 03/04/17 07:33 MCH 26.7 pg (25.0-35.0) 03/04/17 07:33 MCHC 31.5 g/dL (31.0-37.0) 03/04/17 07:33 RDW 17.8 % (11.5-15.5) H 03/04/17 07:33 Plt Count 310 k/uL (150-450) 03/04/17 07:33 Neutrophils % 63 % 03/04/17 07:33 Neutrophils % (Manual) 66 % 03/03/17 07:06 Lymphocytes % 21 % 03/04/17 07:33 Lymphocytes % (Manual) 15 % 03/03/17 07:06 Monocytes % 11 % 03/04/17 07:33 Monocytes % (Manual) 18 % 03/03/17 07:06 Eosinophils % 1 % 03/04/17 07:33 Eosinophils % (Manual) 2 % 03/03/17 07:06 Basophils % 0 % 03/04/17 07:33 Basophils % (Manual) 1 % 03/03/17 07:06 Myelocytes % 1 % 03/03/17 07:06 Neutrophils # 3.0 k/uL (1.3-7.7) 03/04/17 07:33 Neutrophils # (Manual) 3.50 k/uL (1.3-7.7) 03/03/17 07:06 Lymphocytes # 1.0 k/uL (1.0-4.8) 03/04/17 07:33 Lymphocytes # (Manual) 0.80 k/uL (1.0-4.8) L 03/03/17 07:06 Monocytes # 0.5 k/uL (0-1.0) 03/04/17 07:33 Monocytes # (Manual) 0.95 k/uL (0-1.0) 03/03/17 07:06 Eosinophils # 0.0 k/uL (0-0.7) 03/04/17 07:33 Eosinophils # (Manual) 0.11 k/uL (0-0.7) 03/03/17 07:06 Basophils # 0.0 k/uL (0-0.2) 03/04/17 07:33 Basophils # (Manual) 0.05 k/uL (0-0.2) 03/03/17 07:06 Myelocytes # (Manual) 0.05 k/uL (0) H 03/03/17 07:06 Nucleated RBCs 0 /100 WBC (0-0) 03/03/17 07:06 Manual Slide Review Performed 03/03/17 07:06 Toxic Granulation Present 03/03/17 07:06 Hypochromasia Slight 03/04/17 07:33 Poikilocytosis (manual Present 03/03/17 07:06 Anisocytosis Slight 03/04/17 07:33 Sodium 141 mmol/L (137-145) 03/04/17 07:33 Potassium 4.2 mmol/L (3.5-5.1) 03/04/17 07:33 Chloride 105 mmol/L (98-107) 03/04/17 07:33 Carbon Dioxide 26 mmol/L (22-30) 03/04/17 07:33 Anion Gap 10 mmol/L 03/04/17 07:33 BUN 12 mg/dL (9-20) 03/04/17 07:33 Creatinine 0.83 mg/dL (0.66-1.25) 03/04/17 07:33 Est GFR (MDRD) Af Amer >60 (>60 ml/min/1.73 sqM) 03/04/17 07:33 Est GFR (MDRD) Non-Af >60 (>60 ml/min/1.73 sqM) 03/04/17 07:33 Glucose 84 mg/dL (74-99) 03/04/17 07:33 Plasma Lactic Acid Paddy 1.4 mmol/L (0.7-2.0) 03/01/17 18:36 Calcium 9.6 mg/dL (8.4-10.2) 03/04/17 07:33 Total Bilirubin 0.7 mg/dL (0.2-1.3) 03/04/17 07:33 AST 68 U/L (17-59) H 03/04/17 07:33 ALT 206 U/L (21-72) H 03/04/17 07:33 Alkaline Phosphatase 208 U/L (38-126) H 03/04/17 07:33 Total Protein 6.4 g/dL (6.3-8.2) 03/04/17 07:33 Albumin 3.7 g/dL (3.5-5.0) 03/04/17 07:33 Amylase 38 U/L (30-110) 03/02/17 07:50 Lipase 67 U/L (23-300) 03/02/17 07:50 Urine Color Yellow 03/01/17 18:11 Urine Appearance Clear (Clear) 03/01/17 18: Urine pH 5.5 (5.0-8.0) 03/01/17 18: Ur Specific [place] 1.015 (1.001-1.035) 03/01/17 18:11 Urine Protein Trace (Negative) H 03/01/17 18:11 Urine Glucose (UA) Negative (Negative) 03/01/17 18: Urine Ketones Negative (Negative) 03/01/17 18: Urine Blood Negative (Negative) 03/01/17 18:11 Urine Nitrite Negative (Negative) 03/01/17 18: Urine Bilirubin 1+ (Negative) H 03/01/17 18: Urine Urobilinogen 3.0 mg/dL (<2.0) 03/01/17 18:11 Ur Leukocyte Esterase Negative (Negative) 03/01/17 18:11 Heterophile Antibody Negative (Negative) 03/01/17 18:36 Influenza Type A RNA Not Detected (Not Detectd) 03/01/17 18: Influenza Type B (PCR) Not Detected (Not Detectd) 03/01/17 18:11 Microbiology 03/01/17 18:36 Blood Blood Culture - Preliminary No Growth after 72 hours 03/01/17 18: Urine,Voided Urine Culture - Final Assessment and Plan (1) Fever Narrative/Plan: 66 show male presents to hospital with fever and feeling very poorly. He has the extensive history of his pancreatic cancer and is currently receiving Gemzar on a 3 week on 1 week off schedule. He is developed the high-grade fevers and chills as well as evidence of some further obstructive his biliary tract. He does have a stent in place. Antimicrobial therapy is now starting to feel better. However this evening he is still coughing a bit flushed and not quite back to normal. Case is discussed with the hospitalist. The patient is now improved and he can be transitioned to oral levofloxacin to complete his course of therapy and can be discharged home. Patient stands importance of adequate protein intake. He will follow with oncology. 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
== END 2017-03-04 16:15 | disposition home or self-care (01) | DRG 872 ==
LOC: EC 17:21 → 5MS5E 19:33 → 5ONC 20:09
PROVIDERS: ADMIT Internal Medicine; ATTEND Internal Medicine
DX: A41.9 Sepsis, unspecified organism (principal); C25.9 Malignant neoplasm of pancreas, unspecified; K83.0 Cholangitis; E87.1 Hypo-osmolality and hyponatremia; D63.0 Anemia in neoplastic disease; E03.9 Hypothyroidism, unspecified; I10 Essential (primary) hypertension; K76.9 Liver disease, unspecified; R74.0 Nonspecific elevation of levels of transaminase and lactic acid dehydrogenase [LDH]; Z79.899 Other long term (current) drug therapy; Z85.47 Personal history of malignant neoplasm of testis; Z90.79 Acquired absence of other genital organ(s); Z80.3 Family history of malignant neoplasm of breast; Z80.52 Family history of malignant neoplasm of bladder; Z80.0 Family history of malignant neoplasm of digestive organs
CPT/HCPCS: 36415; 71046; 76705; 80053; 81003; 82150; 82550; 82553; 83605; 83690; 84484; 85025; 85610; 85730; 86308; 87040; 87086; 87502; 93005; 96361; 96365; 96366; 96375; 99284; 99285

== ENCOUNTER 2017-03-09 12:48 | Inpatient (IN) | payer OTHER, MEDICARE, BC ==
[2017-03-09] MEDS ORDERED: ACETAMINOPHEN TAB 500 MG TAB PO STA (13:12)
[2017-03-09] MEDS ORDERED: PIPERACILLIN-TAZOBACTAM 3.375 GM in DEXTROSE/WATER 1 50ML.BAG IVPB STA (13:12)
[2017-03-09] MEDS ORDERED: IBUPROFEN IV 600 MG in SODIUM CHLORIDE 0.9% 250 ML IV STA (13:14)
--- NOTE | 2017-03-09 13:17 | ED ---
General Adult HPI - General Chief complaint: Fever Stated complaint: fever/cancer patient Time Seen by Provider: 03/09/17 12:50 Source: patient, RN notes reviewed Mode of arrival: wheelchair Limitations: no limitations - History of Present Illness Initial comments: This is a 66-year-old male who presents emergency department with past medical history significant for pancreatic cancer with stage IV. Patient has been on chemotherapy in the past but is not on chemo currently this week. Patient was been diagnosed in the past with multiple infections and has been septic multiple times and believe it to be occurring in the pancreas with a stent placement was done. Patient comes in today because he has a high fever and feeling chilled. Patient states she's also had a little bit of a cough that has been dry. Patient denies any difficulty breathing or shortness of breath. Patient denies any chest pain or palpitations per patient denies headache patient denies numbness weakness. Patient denies abdominal pain patient denies nausea vomiting diarrhea. Patient states he did get immunized for the flu. Patient denies any calf pain or leg swelling. - Related Data Home Medications Medication Instructions Recorded Confirmed Docusate [Colace] 100 mg PO BID 11/19/15 03/09/17 Levothyroxine Sodium [Synthroid] 88 mcg PO DAILY 11/19/15 03/09/17 Fluticasone Nasal [place] [Flonase 2 spray EA NOSTRIL DAILY 05/23/16 03/09/17 Nasal [place]] Acetaminophen Tab [Tylenol] 650 mg PO Q4-6H PRN 10/04/16 03/09/17 Omeprazole [PriLOSEC] 20 mg PO DAILY 10/04/16 03/09/17 Lactose-Reduced Food [Boost] 237 ml PO DAILY 03/01/17 03/09/17 Loratadine [Claritin] 10 mg PO DAILY 03/01/17 03/09/17 Previous Rx's Medication Instructions Recorded Levofloxacin [Levaquin] 500 mg PO DAILY #7 tab 03/03/17 Allergies Allergy/AdvReac Type Severity Reaction Status Date / Time No Known Allergies Allergy Verified 03/09/17 13:14 Review of Systems ROS Statement: Those systems with pertinent positive or pertinent negative responses have been documented in the HPI. ROS Other: All systems not noted in ROS Statement are negative. Past Medical History Past Medical History: Cancer, Thyroid Disorder Additional Past Medical History / Comment(s): Testicular cancer, pancreatic cancer (diagnosed February 2015), sepsis, hypothyroid. History of Any Multi-Drug Resistant Organisms: None Reported Past Surgical History: Hernia Repair, Tonsillectomy Additional Past Surgical History / Comment(s): 1979 left testicle + lymph nodes removed along spine, right inguinal hernia repair x3 with mesh, hemorrhoidectomy (2011), colonoscopy (Jan 2015), titanium stent in pancreas (2015 @ [place]), restent in 01/2016 ([facility]), smart port. Past Anesthesia/Blood Transfusion Reactions: No Reported Reaction Past Psychological History: No Psychological Hx Reported Smoking Status: Never smoker Past Alcohol Use History: None Reported Past Drug Use History: None Reported - Past Family History Mother Family Medical History: Cancer Additional Family Medical History / Comment(s): Cancer x 3, lived until age 89. Sister(s) Family Medical History: Cancer Additional Family Medical History / Comment(s): Breast cancer. Brother(s) Family Medical History: Cancer Father Family Medical History: Cancer Additional Family Medical History / Comment(s): Colon/bladder cancer x 3, at 94 General Exam - General Exam Comments Initial Comments: GENERAL: Patient is well-developed and well-nourished. Patient is nontoxic and well- hydrated and is in mild distress. ENT: Neck is soft and supple. No significant lymphadenopathy is noted. Oropharynx is clear. Moist mucous membranes. Neck has full range of motion without eliciting any pain. EYES: The sclera were anicteric and conjunctiva were pink and moist. Extraocular movements were intact and pupils were equal round and reactive to light. Eyelids were unremarkable. PULMONARY: Unlabored respirations. Good breath sounds bilaterally. No audible rales rhonchi or wheezing was noted. CARDIOVASCULAR: There is a regular rate and rhythm without any murmurs gallops or rubs. ABDOMEN: Soft and nontender with normal bowel sounds. No palpable organomegaly was noted. There is no palpable pulsatile mass. SKIN: Skin is clear with no lesions or rashes and otherwise unremarkable. NEUROLOGIC: Patient is alert and oriented x3. Cranial nerves II through XII are grossly intact. Motor and sensory are also intact. Normal speech, volume and content. Symmetrical smile. MUSCULOSKELETAL: Normal extremities with adequate strength and full range of motion. No lower extremity swelling or edema. No calf tenderness. LYMPHATICS: No significant lymphadenopathy is noted PSYCHIATRIC: Normal psychiatric evaluation. Normal interpersonal interactions appears functionally intact in deals appropriately with others. No signs of depression. No signs of anxiety. Limitations: no limitations Course Vital Signs 03/09/17 03/09/17 03/09/17 12:52 14:53 14:58 Temperature 102.9 F H 101.6 F H Pulse Rate 124 H 101 H Respiratory 18 16 16 Rate Blood Pressure 132/75 121/73 O2 Sat by Pulse 99 95 Oximetry Medical Decision Making - Medical Decision Making EKG shows sinus tachycardia at 104 bpm IA interval is 150 QRS is 86 QT interval 332 QTC is 436. EKG shows no ST segment elevation or depression or T wave abnormalities are noted Chest x-ray shows no acute abnormality. New. Patient's liver enzymes are elevated consistent with previous episodes of biliary infection. - Lab Data Result diagrams: 03/09/17 14:30 03/09/17 14:30 Lab Results 03/09/17 03/09/17 03/09/17 Range/Units 13:50 13:50 14:30 WBC (3.8-10.6) k/uL RBC (4.30-5.90) m/uL Hgb (13.0-17.5) gm/dL Hct (39.0-53.0) % MCV (80.0-100.0) fL MCH (25.0-35.0) pg MCHC (31.0-37.0) g/dL RDW (11.5-15.5) % Plt Count (150-450) k/uL Neutrophils % % Lymphocytes % % Monocytes % % Eosinophils % % Basophils % % Neutrophils # (1.3-7.7) k/uL Lymphocytes # (1.0-4.8) k/uL Monocytes # (0-1.0) k/uL Eosinophils # (0-0.7) k/uL Basophils # (0-0.2) k/uL Hypochromasia Anisocytosis PT (9.0-12.0) sec INR (<1.2) APTT (22.0-30.0) sec Sodium (137-145) mmol/L Potassium (3.5-5.1) mmol/L Chloride (98-107) mmol/L Carbon Dioxide (22-30) mmol/L Anion Gap mmol/L BUN (9-20) mg/dL Creatinine (0.66-1.25) mg/dL Est GFR (MDRD) Af Amer (>60 ml/min/1.73 sqM) Est GFR (MDRD) Non-Af (>60 ml/min/1.73 sqM) Glucose (74-99) mg/dL Plasma Lactic Acid Paddy (0.7-2.0) mmol/L Calcium (8.4-10.2) mg/dL Total Bilirubin (0.2-1.3) mg/dL AST (17-59) U/L ALT (21-72) U/L Alkaline Phosphatase (38-126) U/L Total Creatine Kinase 32 L (55-170) U/L CK-MB (CK-2) <0.2 (0.0-2.4) ng/mL CK-MB (CK-2) Rel Index Troponin I <0.012 (0.000-0.034) ng/mL Total Protein (6.3-8.2) g/dL Albumin (3.5-5.0) g/dL Urine Color Dark Yellow Urine Appearance Clear (Clear) Urine pH 5.5 (5.0-8.0) Ur Specific [place] 1.022 (1.001-1.035) Urine Protein Trace H (Negative) Urine Glucose (UA) Negative (Negative) Urine Ketones Negative (Negative) Urine Blood Negative (Negative) Urine Nitrite Negative (Negative) Urine Bilirubin 2+ H (Negative) Urine Urobilinogen 3.0 (<2.0) mg/dL Ur Leukocyte Esterase Negative (Negative) Influenza Type A RNA Not Detected (Not Detectd) Influenza Type B (PCR) Not Detected (Not Detectd) 03/09/17 03/09/17 03/09/17 Range/Units 14:30 14:30 14:30 WBC 10.7 H (3.8-10.6) k/uL RBC 4.12 L (4.30-5.90) m/uL Hgb 10.9 L (13.0-17.5) gm/dL Hct 35.5 L (39.0-53.0) % MCV 86.0 (80.0-100.0) fL MCH 26.3 (25.0-35.0) pg MCHC 30.6 L (31.0-37.0) g/dL RDW 19.8 H (11.5-15.5) % Plt Count 393 (150-450) k/uL Neutrophils % 85 % Lymphocytes % 6 % Monocytes % 7 % Eosinophils % 0 % Basophils % 1 % Neutrophils # 9.1 H (1.3-7.7) k/uL Lymphocytes # 0.6 L (1.0-4.8) k/uL Monocytes # 0.8 (0-1.0) k/uL Eosinophils # 0.0 (0-0.7) k/uL Basophils # 0.1 (0-0.2) k/uL Hypochromasia Slight Anisocytosis Slight PT (9.0-12.0) sec INR (<1.2) APTT (22.0-30.0) sec Sodium 136 L (137-145) mmol/L Potassium 4.3 (3.5-5.1) mmol/L Chloride 102 (98-107) mmol/L Carbon Dioxide 23 (22-30) mmol/L Anion Gap 11 mmol/L BUN 16 (9-20) mg/dL Creatinine 0.80 (0.66-1.25) mg/dL Est GFR (MDRD) Af Amer >60 (>60 ml/min/1.73 sqM) Est GFR (MDRD) Non-Af >60 (>60 ml/min/1.73 sqM) Glucose 100 H (74-99) mg/dL Plasma Lactic Acid Paddy 0.8 (0.7-2.0) mmol/L Calcium 8.8 (8.4-10.2) mg/dL Total Bilirubin 3.7 H (0.2-1.3) mg/dL AST 332 H (17-59) U/L ALT 498 H (21-72) U/L Alkaline Phosphatase 400 H (38-126) U/L Total Creatine Kinase (55-170) U/L CK-MB (CK-2) (0.0-2.4) ng/mL CK-MB (CK-2) Rel Index Troponin I (0.000-0.034) ng/mL Total Protein 6.6 (6.3-8.2) g/dL Albumin 3.5 (3.5-5.0) g/dL Urine Color Urine Appearance (Clear) Urine pH (5.0-8.0) Ur Specific [place] (1.001-1.035) Urine Protein (Negative) Urine Glucose (UA) (Negative) Urine Ketones (Negative) Urine Blood (Negative) Urine Nitrite (Negative) Urine Bilirubin (Negative) Urine Urobilinogen (<2.0) mg/dL Ur Leukocyte Esterase (Negative) Influenza Type A RNA (Not Detectd) Influenza Type B (PCR) (Not Detectd) 03/09/17 Range/Units 14:30 WBC (3.8-10.6) k/uL RBC (4.30-5.90) m/uL Hgb (13.0-17.5) gm/dL Hct (39.0-53.0) % MCV (80.0-100.0) fL MCH (25.0-35.0) pg MCHC (31.0-37.0) g/dL RDW (11.5-15.5) % Plt Count (150-450) k/uL Neutrophils % % Lymphocytes % % Monocytes % % Eosinophils % % Basophils % % Neutrophils # (1.3-7.7) k/uL Lymphocytes # (1.0-4.8) k/uL Monocytes # (0-1.0) k/uL Eosinophils # (0-0.7) k/uL Basophils # (0-0.2) k/uL Hypochromasia Anisocytosis PT 10.5 (9.0-12.0) sec INR 1.1 (<1.2) APTT 24.1 (22.0-30.0) sec Sodium (137-145) mmol/L Potassium (3.5-5.1) mmol/L Chloride (98-107) mmol/L Carbon Dioxide (22-30) mmol/L Anion Gap mmol/L BUN (9-20) mg/dL Creatinine (0.66-1.25) mg/dL Est GFR (MDRD) Af Amer (>60 ml/min/1.73 sqM) Est GFR (MDRD) Non-Af (>60 ml/min/1.73 sqM) Glucose (74-99) mg/dL Plasma Lactic Acid Paddy (0.7-2.0) mmol/L Calcium (8.4-10.2) mg/dL Total Bilirubin (0.2-1.3) mg/dL AST (17-59) U/L ALT (21-72) U/L Alkaline Phosphatase (38-126) U/L Total Creatine Kinase (55-170) U/L CK-MB (CK-2) (0.0-2.4) ng/mL CK-MB (CK-2) Rel Index Troponin I (0.000-0.034) ng/mL Total Protein (6.3-8.2) g/dL Albumin (3.5-5.0) g/dL Urine Color Urine Appearance (Clear) Urine pH (5.0-8.0) Ur Specific [place] (1.001-1.035) Urine Protein (Negative) Urine Glucose (UA) (Negative) Urine Ketones (Negative) Urine Blood (Negative) Urine Nitrite (Negative) Urine Bilirubin (Negative) Urine Urobilinogen (<2.0) mg/dL Ur Leukocyte Esterase (Negative) Influenza Type A RNA (Not Detectd) Influenza Type B (PCR) (Not Detectd) Disposition Clinical Impression: Biliary infection Disposition: ADMITTED IP TO THIS HOSP Referrals: Shelby Styles MD [Primary Care Provider] - 1-2 days Time of Disposition: 15:29
[2017-03-09] MEDS ORDERED: IBUPROFEN 800 MG TAB PO STA (13:44)
[2017-03-09 14:05] LABS: Appearance,Urine Clear (Clear); Bilirubin,Urine 2+ (Negative); Blood,Urine Negative (Negative); Color,Urine Dark Yellow; Glucose,Urine (UA) Negative (Negative); Ketones,Urine Negative (Negative); Leukocyte Esterase,Urine Negative (Negative); Nitrite,Urine Negative (Negative); PH, Urine 5.5 (5.0-8.0); Protein,Urine Trace (Negative); Specific Gravity,Urine 1.022 (1.001-1.035)
[2017-03-09] MEDS: SODIUM CHLORIDE 0.9% 500 ML IV SCH (14:34)
[2017-03-09 14:43] LABS: Anisocytosis Slight; Basophils # (A) 0.1 k/uL (0-0.2); Basophils % (A) 1 %; Eosinophils % (A) 0 %; HCT 35.5 % (39.0-53.0); HGB 10.9 gm/dL (13.0-17.5); Hypochromasia Slight; Lymphocytes # (A) 0.6 k/uL (1.0-4.8); Lymphocytes % (A) 6 %; MCH 26.3 pg (25.0-35.0); MCHC 30.6 g/dL (31.0-37.0); Mean Platelet Volume 6.9; Monocytes # (A) 0.8 k/uL (0-1.0); Monocytes % (A) 7 %; Neutrophils # (A) 9.1 k/uL (1.3-7.7); Neutrophils % (A) 85 %; Platelet Count 393 k/uL (150-450); RBC 4.12 m/uL (4.30-5.90); RDW 19.8 % (11.5-15.5); WBC 10.7 k/uL (3.8-10.6)
[2017-03-09 14:50] LABS: INR 1.1 (<1.2); Partial Thromboplastin Time 24.1 sec (22.0-30.0); Prothrombin Time 10.5 sec (9.0-12.0)
--- NOTE | 2017-03-09 14:58 | XR ---
EXAMINATION TYPE: XR chest 2V DATE OF EXAM: 03/09/2017 COMPARISON: Prior chest 03/01/2017 HISTORY: Fever, pancreatic carcinoma TECHNIQUE: Frontal and lateral views of the chest are obtained. FINDINGS: There is no focal air space opacity, pleural effusion, or pneumothorax seen. The cardiac silhouette size is within normal limits. Multiple surgical clips present in the abdomen. Biliary sten t is in place. Port-A-Cath shows a left jugular approach, distal tip overlying the superior vena cava . Persistent elevation of left hemidiaphragm. The osseous structures are intact. IMPRESSION: Stable findings. No acute abnormality evident.
[2017-03-09 15:00] LABS: ALT 498 U/L (21-72); AST 332 U/L (17-59); Albumin 3.5 g/dL (3.5-5.0); Alkaline Phosphatase 400 U/L (38-126); Anion Gap 11 mmol/L; Blood Urea Nitrogen 16 mg/dL (9-20); Calcium 8.8 mg/dL (8.4-10.2); Carbon Dioxide 23 mmol/L (22-30); Chloride 102 mmol/L (98-107); Glucose 100 mg/dL (74-99); Potassium 4.3 mmol/L (3.5-5.1); Sodium 136 mmol/L (137-145); Total Bilirubin 3.7 mg/dL (0.2-1.3); Total Protein 6.6 g/dL (6.3-8.2)
[2017-03-09 15:02] LABS: Creatine Kinase 32 U/L (55-170)
[2017-03-09 15:15] LABS: Creatine Kinase MB <0.2 ng/mL (0.0-2.4); Troponin I <0.012 ng/mL (0.000-0.034)
[2017-03-09] MEDS ORDERED: SODIUM CHLORIDE 0.9% 1,000 ML IV ONE (15:41)
[2017-03-09] MEDS ORDERED: ACETAMINOPHEN TAB 325 MG TAB PO PRN (15:48)
[2017-03-09 15:53] LABS: Amylase 59 U/L (30-110); Lipase 142 U/L (23-300)
[2017-03-09] MEDS: IBUPROFEN 600 MG TAB PO SCH ×2 (19:24→21:05)
--- NOTE | 2017-03-09 21:56 | P.HPIM ---
History of Present Illness H&P Date: 03/09/17 Chief Complaint: Fever This a 66 year old gentleman with history of pancreatic cancer stage IV with metastasis to liver who is currently undergoing chemotherapy about one week ago came to the hospital with complaints of fever. Apparently patient was noted to have fever 101.1 at home. Patient does have history of multiple biliary tract infections and also history of multiple stents placement. Patient was was really diagnosed with pancreatic cancer in February 2015 and initially had stent placement at and latter patient had sepsis in October 2015 and was treated at [facility]. Following that patient had multiple stents placement. Patient was recently admitted to [facility] about a week ago and was treated for acute cholangitis with elevated bilirubin level. Leukocytosis.. Patient did improve with antibiotics and was discharged home on levofloxacin. Patient completed antibiotic course on last . Patient up with fever again today and was brought to the hospital by his who is at bedside. Patient states she's also had a little bit of a cough that has been dry. Patient denies any difficulty breathing or shortness of breath. Patient denies any chest pain or palpitations per patient denies headache patient denies numbness weakness. Patient denies abdominal pain patient denies nausea vomiting diarrhea. Patient states he did get immunized for the flu. Patient denies any calf pain or leg swelling. Review of Systems Constitutional: Patient does have fever or chills . No generalized weakness or weight loss. Abdomen: Patient denied nausea vomiting and diarrhea and abdominal pain. Cardiovascular: Patient denies any chest pain or short of breath no palpitations. Respiratory: patient denied any cough is from production. No shortness of breath Neurologic: Patient denied any numbness or tingling headache. Musculoskeletal: Patient denies any complaints of joint swelling or deformity. Skin: Negative Psychiatric: Negative Endocrine: No heat or cold intolerance. No recent weight gain. Genitourinary: No dysuria or hematuria. All other 14 point ROS negative except the above Past Medical History Past Medical History: Cancer, Thyroid Disorder Additional Past Medical History / Comment(s): Testicular cancer, pancreatic cancer (diagnosed February 2015), sepsis, hypothyroid. upper/lower bridges History of Any Multi-Drug Resistant Organisms: None Reported Past Surgical History: Hernia Repair, Tonsillectomy Additional Past Surgical History / Comment(s): 1979 left testicle + lymph nodes removed along spine, right inguinal hernia repair x3 with mesh, hemorrhoidectomy (2011), colonoscopy (Jan 2015), titanium stent in pancreas (2015 @ [place]), restent in 01/2016 ([facility]), smart port. Past Anesthesia/Blood Transfusion Reactions: No Reported Reaction Smoking Status: Never smoker - Past Family History Mother Family Medical History: Cancer Additional Family Medical History / Comment(s): Cancer x 3, lived until age 89. Sister(s) Family Medical History: Cancer Additional Family Medical History / Comment(s): Breast cancer. Brother(s) Family Medical History: Cancer Father Family Medical History: Cancer Additional Family Medical History / Comment(s): Colon/bladder cancer x 3, at 94 Medications and Allergies Home Medications Medication Instructions Recorded Confirmed Type Docusate [Colace] 100 mg PO BID 11/19/15 03/09/17 History Levothyroxine Sodium [Synthroid] 88 mcg PO DAILY 11/19/15 03/09/17 History Fluticasone Nasal [place] [Flonase 2 spray EA NOSTRIL DAILY 05/23/16 03/09/17 History Nasal [place]] Acetaminophen Tab [Tylenol] 650 mg PO Q4-6H PRN 10/04/16 03/09/17 History Omeprazole [PriLOSEC] 20 mg PO DAILY 10/04/16 03/09/17 History Lactose-Reduced Food [Boost] 237 ml PO DAILY 03/01/17 03/09/17 History Loratadine [Claritin] 10 mg PO DAILY 03/01/17 03/09/17 History Levofloxacin [Levaquin] 500 mg PO DAILY #7 tab 03/03/17 03/09/17 Rx Allergies Allergy/AdvReac Type Severity Reaction Status Date / Time No Known Allergies Allergy Verified 03/09/17 13:14 Physical Exam Vitals: Vital Signs Temp Pulse Pulse Resp BP BP Pulse Ox 03/09/17 20:55 99.3 F 03/09/17 17:37 100 F H 99 22 108/76 97 03/09/17 17:00 100.6 F H 98 18 119/69 97 03/09/17 15:39 100.4 F H 95 16 113/71 95 03/09/17 14:58 16 03/09/17 14:53 101.6 F H 101 H 16 121/73 95 03/09/17 12:52 102.9 F H 124 H 18 132/75 99 Intake and Output 03/09/17 03/09/17 03/09/17 06:59 14:59 22:59 Other: Voiding Method Toilet Weight 88.451 kg Patient Weight 03/10/17 06:59 Weight 88.451 kg PHYSICAL EXAMINATION: Patient is lying in the bed comfortably, no acute distress, awake alert and oriented.. HEENT: Normocephalic. Neck is supple. Pupils reactive. Eyes icteric. Nostrils clear. Oral cavity is moist. Ears reveal no drainage. Neck reveals no JVD, carotid bruits, or thyromegaly. CHEST EXAMINATION: Trachea is central. Symmetrical expansion. Lung lopez clear to auscultation and percussion. CARDIAC: Normal S1, S2 with no gallops. No murmurs ABDOMEN: Soft. Bowel sounds normal. No organomegaly. No abdominal bruits. Extremities: reveal no edema. No clubbing or cyanosis Neurologically awake, alert, oriented x3 with well-coordinated movements. No focal deficits noted Skin: No rash or skin lesions. Psychiatric: Coperative. Nonsuicidal Musculoskeletal: No joint swelling or deformity. Normal range of motion. Results CBC & Chem 7: 03/09/17 14:30 03/09/17 14:30 Labs: Abnormal Lab Results - Last 24 Hours (Table) 03/09/17 03/09/17 03/09/17 Range/Units 13:50 14:30 14:30 WBC 10.7 H (3.8-10.6) k/uL RBC 4.12 L (4.30-5.90) m/uL Hgb 10.9 L (13.0-17.5) gm/dL Hct 35.5 L (39.0-53.0) % MCHC 30.6 L (31.0-37.0) g/dL RDW 19.8 H (11.5-15.5) % Neutrophils # 9.1 H (1.3-7.7) k/uL Lymphocytes # 0.6 L (1.0-4.8) k/uL Sodium (137-145) mmol/L Glucose (74-99) mg/dL Total Bilirubin (0.2-1.3) mg/dL AST (17-59) U/L ALT (21-72) U/L Alkaline Phosphatase (38-126) U/L Total Creatine Kinase 32 L (55-170) U/L Urine Protein Trace H (Negative) Urine Bilirubin 2+ H (Negative) 03/09/17 Range/Units 14:30 WBC (3.8-10.6) k/uL RBC (4.30-5.90) m/uL Hgb (13.0-17.5) gm/dL Hct (39.0-53.0) % MCHC (31.0-37.0) g/dL RDW (11.5-15.5) % Neutrophils # (1.3-7.7) k/uL Lymphocytes # (1.0-4.8) k/uL Sodium 136 L (137-145) mmol/L Glucose 100 H (74-99) mg/dL Total Bilirubin 3.7 H (0.2-1.3) mg/dL AST 332 H (17-59) U/L ALT 498 H (21-72) U/L Alkaline Phosphatase 400 H (38-126) U/L Total Creatine Kinase (55-170) U/L Urine Protein (Negative) Urine Bilirubin (Negative) Microbiology - Last 24 Hours (Table) 03/09/17 13:50 Urine Culture - Preliminary Urine,Voided Thrombosis Risk Factor Assmnt - DVT/VTE Prophylaxis DVT/VTE Prophylaxis: Pharmacologic Prophylaxis ordered Assessment and Plan Assessment: #1 Fever with elevated bilirubin level likely secondary to acute ascending cholangitis. #2 sepsis secondary to cholangitis #3 history of pancreatic cancer, status post multiple stents and chemotherapy. Recently chemotherapy about one week ago #4 normocytic anemia of malignancy. #5 elevated liver enzymes #6 hypothyroidism #7 DVT prophylaxis Plan: Patient will be continued on antibiotics in the form of Zosyn. Will follow with blood cultures and ID and oncology as well as GI has been consulted. Continue with pain management and symptomatic treatment. Further recommendations based on the clinical course. We will follow up LFTs tomorrow. Time with Patient: Greater than 30
[2017-03-10] MEDS: PIPERACILLIN-TAZOBACTAM 3.375 GM in DEXTROSE/WATER 1 50ML.BAG IVPB SCH ×3 (00:53→17:00)
[2017-03-10] MEDS ORDERED: LEVOTHYROXINE 88 MCG TAB PO SCH (06:30)
[2017-03-10 06:53] LABS: Anisocytosis Moderate; Basophils % (A) 0 %; Eosinophils # (A) 0.1 k/uL (0-0.7); Eosinophils % (A) 1 %; HCT 32.7 % (39.0-53.0); HGB 9.9 gm/dL (13.0-17.5); Hypochromasia Moderate; Lymphocytes # (A) 1.1 k/uL (1.0-4.8); Lymphocytes % (A) 11 %; MCH 26.5 pg (25.0-35.0); MCHC 30.4 g/dL (31.0-37.0); MCV 87.2 fL (80.0-100.0); Mean Platelet Volume 7.5; Monocytes # (A) 1.2 k/uL (0-1.0); Monocytes % (A) 12 %; Neutrophils # (A) 7.2 k/uL (1.3-7.7); Neutrophils % (A) 72 %; Platelet Count 313 k/uL (150-450); RBC 3.75 m/uL (4.30-5.90); RDW 20.4 % (11.5-15.5); WBC 9.9 k/uL (3.8-10.6)
[2017-03-10 07:03] LABS: ALT 386 U/L (21-72); AST 190 U/L (17-59); Alkaline Phosphatase 320 U/L (38-126); Anion Gap 9 mmol/L; Blood Urea Nitrogen 12 mg/dL (9-20); Calcium 9.1 mg/dL (8.4-10.2); Carbon Dioxide 27 mmol/L (22-30); Chloride 106 mmol/L (98-107); Glucose 88 mg/dL (74-99); Potassium 4.6 mmol/L (3.5-5.1); Sodium 142 mmol/L (137-145); Total Bilirubin 3.7 mg/dL (0.2-1.3); Total Protein 5.7 g/dL (6.3-8.2)
[2017-03-10] MEDS ORDERED: PANTOPRAZOLE 40 MG TABLET PO SCH (07:30)
[2017-03-10 08:00] VITALS: RESP 20
--- NOTE | 2017-03-10 08:40 | P.CONS ---
History of Present Illness - Reason for Consult Consult date: 03/10/17 Biliary infection - History of Present Illness This is a 66-year-old male who has a past medical history significant for pancreatic cancer currently on chemotherapy under the care of Dr. Dominguez diagnosed in February 2015. He is on Gemzar for 3 weeks and off 1 week. He had a recent hospitalization March 01 through March 04 with obstruction of the biliary tract. He was discharged home on Levaquin for 7 days. He states today would be his final dose. Patient started with high-grade fever and chills and came back into [facility] emergency center for evaluation. Temperature was 102.9 with white count of 10.7. Total bilirubin and liver function tests were all elevated. Albumin 3.5. Urinalysis was negative for infection. Influenza testing negative. Lactic acid 0.8. Chest x-ray showed no acute abnormality. He has had an occasional dry cough. Patient states he did have some loose stools just today but none today. He denies any nausea or vomiting. He denies any abdominal pain, dysuria. He has hungry and is currently nothing by mouth status. GI is on consult as well as oncology. Patient has been off chemotherapy since his last admission. Review of Systems All systems: negative Constitutional: Reports chills, Reports fatigue, Reports fever Eyes: denies blurred vision, denies pain Ears, nose, mouth and throat: Denies dental pain, Denies headache, Denies mouth pain, Denies sore throat Cardiovascular: Denies chest pain, Denies edema, Denies leg edema, Denies lightheadedness, Denies shortness of breath, Denies syncope Respiratory: Reports cough, Denies cough with sputum, Denies dyspnea, Denies excessive sputum, Denies hemoptysis, Denies home oxygen, Denies wheezing Gastrointestinal: Denies abdominal pain, Denies diarrhea, Denies nausea, Denies vomiting Genitourinary: Denies dysuria Musculoskeletal: Denies myalgias Integumentary: Denies pruritus, Denies rash Neurological: Denies numbness, Denies weakness Psychiatric: Denies anxiety, Denies depression Endocrine: Denies fatigue, Denies weight change Past Medical History Past Medical History: Cancer, Thyroid Disorder Additional Past Medical History / Comment(s): Testicular cancer, pancreatic cancer (diagnosed February 2015), sepsis, hypothyroid. upper/lower bridges History of Any Multi-Drug Resistant Organisms: None Reported Past Surgical History: Hernia Repair, Tonsillectomy Additional Past Surgical History / Comment(s): 1979 left testicle + lymph nodes removed along spine, right inguinal hernia repair x3 with mesh, hemorrhoidectomy (2011), colonoscopy (Jan 2015), titanium stent in pancreas (2015 @ [facility]), restent in 01/2016 ([facility]), smart port. 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 He lives at home with his and son. There is a cat in the home. No recent travel or service. - Past Family History Mother Family Medical History: Cancer Additional Family Medical History / Comment(s): Cancer x 3, lived until age 89. Sister(s) Family Medical History: Cancer Additional Family Medical History / Comment(s): Breast cancer. Brother(s) Family Medical History: Cancer Father Family Medical History: Cancer Additional Family Medical History / Comment(s): Colon/bladder cancer x 3, at 94 Medications and Allergies Home Medications Medication Instructions Recorded Confirmed Type Docusate [Colace] 100 mg PO BID 11/19/15 03/09/17 History Levothyroxine Sodium [Synthroid] 88 mcg PO DAILY 11/19/15 03/09/17 History Fluticasone Nasal [place] [Flonase 2 spray EA NOSTRIL DAILY 05/23/16 03/09/17 History Nasal [place]] Acetaminophen Tab [Tylenol] 650 mg PO Q4-6H PRN 10/04/16 03/09/17 History Omeprazole [PriLOSEC] 20 mg PO DAILY 10/04/16 03/09/17 History Lactose-Reduced Food [Boost] 237 ml PO DAILY 03/01/17 03/09/17 History Loratadine [Claritin] 10 mg PO DAILY 03/01/17 03/09/17 History Levofloxacin [Levaquin] 500 mg PO DAILY #7 tab 03/03/17 03/09/17 Rx Allergies Allergy/AdvReac Type Severity Reaction Status Date / Time No Known Allergies Allergy Verified 03/09/17 13:14 Physical Exam Vitals: Vital Signs Temp Pulse Pulse Resp BP BP Pulse Ox 03/10/17 07:00 97.9 F 71 20 114/76 97 03/10/17 05:03 98.2 F 03/10/17 00:58 98.0 F 03/09/17 23:00 95 17 137/82 96 03/09/17 20:55 99.3 F 03/09/17 17:37 100 F H 99 22 108/76 97 03/09/17 17:00 100.6 F H 98 18 119/69 97 03/09/17 15:39 100.4 F H 95 16 113/71 95 03/09/17 14:58 16 03/09/17 14:53 101.6 F H 101 H 16 121/73 95 03/09/17 12:52 102.9 F H 124 H 18 132/75 99 Intake and Output 03/09/17 03/10/17 03/10/17 22:59 06:59 14:59 Intake Total 700 Balance 700 Intake: Intake, IV Titration 600 Amount Sodium Chloride 0.9% 1, 600 000 ml @ 75 mls/hr IV . [id number] ONE Rx#:[id number] Oral 100 Other: Voiding Method Toilet Toilet Toilet # Voids 2 1 1 Gen: This is a 66-year-old male. He is sitting up in bed and appears to be in no acute distress. HEENT: Head is atraumatic, normocephalic. Pupils equal, round. Sclerae is icteric. Conjunctiva pink. Mucous members of the mouth are slightly dry. NECK: Supple. No JVD. No lymphadenopathy. No thyromegaly. LUNGS: Clear to auscultation. No wheezes or rhonchi. No intercostal retractions. HEART: Regular rate and rhythm. No murmur. ABDOMEN: Soft. Bowel sounds are present. No masses. No tenderness. EXTREMITIES: No pedal edema. No calf tenderness. Dorsalis pedis is +2 bilaterally. NEUROLOGICAL: Patient is awake, alert and oriented x3. Cranial nerves 2 through 12 are grossly intact. Results Results: Laboratory Results WBC 9.9 k/uL (3.8-10.6) 03/10/17 06:23 RBC 3.75 m/uL (4.30-5.90) L 03/10/17 06:23 Hgb 9.9 gm/dL (13.0-17.5) L 03/10/17 06:23 Hct 32.7 % (39.0-53.0) L 03/10/17 06:23 MCV 87.2 fL (80.0-100.0) 03/10/17 06:23 MCH 26.5 pg (25.0-35.0) 03/10/17 06:23 MCHC 30.4 g/dL (31.0-37.0) L 03/10/17 06:23 RDW 20.4 % (11.5-15.5) H 03/10/17 06:23 Plt Count 313 k/uL (150-450) 03/10/17 06:23 Neutrophils % 72 % 03/10/17 06:23 Lymphocytes % 11 % 03/10/17 06:23 Monocytes % 12 % 03/10/17 06:23 Eosinophils % 1 % 03/10/17 06:23 Basophils % 0 % 03/10/17 06:23 Neutrophils # 7.2 k/uL (1.3-7.7) 03/10/17 06:23 Lymphocytes # 1.1 k/uL (1.0-4.8) 03/10/17 06:23 Monocytes # 1.2 k/uL (0-1.0) H 03/10/17 06:23 Eosinophils # 0.1 k/uL (0-0.7) 03/10/17 06:23 Basophils # 0.0 k/uL (0-0.2) 03/10/17 06:23 Hypochromasia Moderate 03/10/17 06:23 Anisocytosis Moderate 03/10/17 06:23 PT 10.5 sec (9.0-12.0) 03/09/17 14:30 INR 1.1 (<1.2) 03/09/17 14:30 APTT 24.1 sec (22.0-30.0) 03/09/17 14:30 Sodium 142 mmol/L (137-145) 03/10/17 06:23 Potassium 4.6 mmol/L (3.5-5.1) 03/10/17 06:23 Chloride 106 mmol/L (98-107) 03/10/17 06:23 Carbon Dioxide 27 mmol/L (22-30) 03/10/17 06:23 Anion Gap 9 mmol/L 03/10/17 06:23 BUN 12 mg/dL (9-20) 03/10/17 06:23 Creatinine 0.85 mg/dL (0.66-1.25) 03/10/17 06:23 Est GFR (MDRD) Af Amer >60 (>60 ml/min/1.73 sqM) 03/10/17 06:23 Est GFR (MDRD) Non-Af >60 (>60 ml/min/1.73 sqM) 03/10/17 06:23 Glucose 88 mg/dL (74-99) 03/10/17 06:23 Plasma Lactic Acid Paddy 0.8 mmol/L (0.7-2.0) 03/09/17 14:30 Calcium 9.1 mg/dL (8.4-10.2) 03/10/17 06:23 Total Bilirubin 3.7 mg/dL (0.2-1.3) H 03/10/17 06:23 AST 190 U/L (17-59) H 03/10/17 06:23 ALT 386 U/L (21-72) H 03/10/17 06:23 Alkaline Phosphatase 320 U/L (38-126) H 03/10/17 06:23 Total Creatine Kinase 32 U/L (55-170) L 03/09/17 14:30 CK-MB (CK-2) <0.2 ng/mL (0.0-2.4) 03/09/17 14:30 CK-MB (CK-2) Rel Index 03/09/17 14:30 Troponin I <0.012 ng/mL (0.000-0.034) 03/09/17 14:30 Total Protein 5.7 g/dL (6.3-8.2) L 03/10/17 06:23 Albumin 3.0 g/dL (3.5-5.0) L 03/10/17 06:23 Amylase 59 U/L (30-110) 03/09/17 14:30 Lipase 142 U/L (23-300) 03/09/17 14:30 Urine Color Dark Yellow 03/09/17 13:50 Urine Appearance Clear (Clear) 03/09/17 13:50 Urine pH 5.5 (5.0-8.0) 03/09/17 13:50 Ur Specific [place] 1.022 (1.001-1.035) 03/09/17 13:50 Urine Protein Trace (Negative) H 03/09/17 13:50 Urine Glucose (UA) Negative (Negative) 03/09/17 13:50 Urine Ketones Negative (Negative) 03/09/17 13:50 Urine Blood Negative (Negative) 03/09/17 13:50 Urine Nitrite Negative (Negative) 03/09/17 13:50 Urine Bilirubin 2+ (Negative) H 03/09/17 13:50 Urine Urobilinogen 3.0 mg/dL (<2.0) 03/09/17 13:50 Ur Leukocyte Esterase Negative (Negative) 03/09/17 13:50 Influenza Type A RNA Not Detected (Not Detectd) 03/09/17 13:50 Influenza Type B (PCR) Not Detected (Not Detectd) 03/09/17 13:50 CBC & Chem 7: 03/10/17 06:23 03/10/17 06:23 Labs: Abnormal Lab Results - Last 24 Hours (Table) 03/09/17 03/09/17 03/09/17 Range/Units 13:50 14:30 14:30 WBC 10.7 H (3.8-10.6) k/uL RBC 4.12 L (4.30-5.90) m/uL Hgb 10.9 L (13.0-17.5) gm/dL Hct 35.5 L (39.0-53.0) % MCHC 30.6 L (31.0-37.0) g/dL RDW 19.8 H (11.5-15.5) % Neutrophils # 9.1 H (1.3-7.7) k/uL Lymphocytes # 0.6 L (1.0-4.8) k/uL Monocytes # (0-1.0) k/uL Sodium (137-145) mmol/L Glucose (74-99) mg/dL Total Bilirubin (0.2-1.3) mg/dL AST (17-59) U/L ALT (21-72) U/L Alkaline Phosphatase (38-126) U/L Total Creatine Kinase 32 L (55-170) U/L Total Protein (6.3-8.2) g/dL Albumin (3.5-5.0) g/dL Urine Protein Trace H (Negative) Urine Bilirubin 2+ H (Negative) 03/09/17 03/10/17 03/10/17 Range/Units 14:30 06:23 06:23 WBC (3.8-10.6) k/uL RBC 3.75 L (4.30-5.90) m/uL Hgb 9.9 L (13.0-17.5) gm/dL Hct 32.7 L (39.0-53.0) % MCHC 30.4 L (31.0-37.0) g/dL RDW 20.4 H (11.5-15.5) % Neutrophils # (1.3-7.7) k/uL Lymphocytes # (1.0-4.8) k/uL Monocytes # 1.2 H (0-1.0) k/uL Sodium 136 L (137-145) mmol/L Glucose 100 H (74-99) mg/dL Total Bilirubin 3.7 H 3.7 H (0.2-1.3) mg/dL AST 332 H 190 H (17-59) U/L ALT 498 H 386 H (21-72) U/L Alkaline Phosphatase 400 H 320 H (38-126) U/L Total Creatine Kinase (55-170) U/L Total Protein 5.7 L (6.3-8.2) g/dL Albumin 3.0 L (3.5-5.0) g/dL Urine Protein (Negative) Urine Bilirubin (Negative) Microbiology - Last 24 Hours (Table) 03/09/17 13:50 Urine Culture - Preliminary Urine,Voided Assessment and Plan Plan: This is a 66-year-old male who is currently undergoing chemotherapy for pancreatic cancer. Patient presents with signs of sepsis most likely biliary sepsis. He does have history of bacteremia in the past. Currently, blood culture is status received patient is currently on Zosyn which will be continued. Continue supportive care. Further recommendations as patient progresses. The above dictated assessment and findings were discussed with Dr. Spivey. The impression and plan of care have been directed as dictated. Chinyere Rutledge nurse practitioner acting as scribe for Dr. Spivey.
[2017-03-10] MEDS ORDERED: FLUTICASONE 50MCG/SPRAY NASAL 16GM EA NOSTRIL SCH (09:00)
[2017-03-10] MEDS ORDERED: NON-FORMULARY DRUG (Lactose-Reduced Food [Boost] 237 ML) PO SCH (09:00)
[2017-03-10] MEDS ORDERED: DOCUSATE 100 MG CAP PO SCH (09:00)
[2017-03-10] MEDS ORDERED: LORATADINE 10 MG TAB PO SCH (09:00)
[2017-03-10] MEDS: IBUPROFEN 600 MG TAB PO SCH ×2 (10:33→12:47)
--- NOTE | 2017-03-10 12:04 | P.DS ---
Providers Date of admission: 03/09/17 15:41 Expected date of discharge: 03/10/17 Attending physician: Brandon Ferreira Consults: 03/09/17 15:41 Consult Physician Urgent Consulting Provider: Patrick Spivey Consult Reason/Comments: Biliary infection Do you want consulting provider notified?: Yes Consult Physician Urgent Consulting Provider: Francisco Dominguez Consult Reason/Comments: History of pancreatic cancer Do you want consulting provider notified?: Yes Consult Physician Urgent Consulting Provider: Nadiya Taveras Consult Reason/Comments: Biliary tree infection Do you want consulting provider notified?: Yes Primary care physician: [facility] Course: discharge diagnosis #1 Fever with elevated bilirubin level likely secondary to acute ascending cholangitis. #2 sepsis secondary to cholangitis #3 history of pancreatic cancer, status post multiple stents and chemotherapy. Recently chemotherapy about one week ago #4 normocytic anemia of malignancy. #5 elevated liver enzymes #6 hypothyroidism #7 DVT prophylaxis hospital course This a 66 year old gentleman with history of pancreatic cancer stage IV with metastasis to liver who is currently undergoing chemotherapy about one week ago came to the hospital with complaints of fever. Apparently patient was noted to have fever 101.1 at home. Patient does have history of multiple biliary tract infections and also history of multiple stents placement. Patient was was really diagnosed with pancreatic cancer in February 2015 and initially had stent placement at [facility] and latter patient had sepsis in October 2015 and was treated at [facility]. Following that patient had multiple stents placement. Patient was recently admitted to [facility] about a week ago and was treated for acute cholangitis with elevated bilirubin level. Leukocytosis.. Patient did improve with antibiotics and was discharged home on levofloxacin. Patient completed antibiotic course on last . Patient up with fever again today and was brought to the hospital by his who is at bedside. Patient states she's also had a little bit of a cough that has been dry. Patient denies any difficulty breathing or shortness of breath. Patient denies any chest pain or palpitations per patient denies headache patient denies numbness weakness. Patient denies abdominal pain patient denies nausea vomiting diarrhea. Patient states he did get immunized for the flu. Patient denies any calf pain or leg swelling. Patient was continued on antibiotics in the form of Zosyn. negativeblood cultures O4. ID and oncology as well as GI has been consulted. general surgery has seen the patient and recommended to be transferred to [facility] for further care. Otherwise WBC count slightly improved to 9.0. bilirubin is still elevated at 3.7. Patient has been afebrile. Otherwise patient is hemodynamically stable at this time. Discussed with [facility] transfer team hospitalist, who is agreeable to be transferred. Discharge physical examination:' Patient is lying in the bed comfortably, no acute distress, awake alert and oriented.. HEENT: Normocephalic. Neck is supple. Pupils reactive. Eyes icteric. Nostrils clear. Oral cavity is moist. Ears reveal no drainage. Neck reveals no JVD, carotid bruits, or thyromegaly. CHEST EXAMINATION: Trachea is central. Symmetrical expansion. Lung lopez clear to auscultation and percussion. CARDIAC: Normal S1, S2 with no gallops. No murmurs ABDOMEN: Soft. Bowel sounds normal. No organomegaly. No abdominal bruits. Extremities: reveal no edema. No clubbing or cyanosis Neurologically awake, alert, oriented x3 with well-coordinated movements. No focal deficits noted Skin: No rash or skin lesions. Psychiatric: Coperative. Nonsuicidal Musculoskeletal: No joint swelling or deformity. Normal range of motion. Patient Condition at Discharge: Fair Plan - Discharge Summary Discharge Rx Participant: No New Discharge Prescriptions: Continue Docusate [Colace] 100 mg PO BID Levothyroxine Sodium [Synthroid] 88 mcg PO DAILY Fluticasone Nasal [place] [Flonase Nasal [place]] 2 spray EA NOSTRIL DAILY Omeprazole [PriLOSEC] 20 mg PO DAILY Acetaminophen Tab [Tylenol] 650 mg PO Q4-6H PRN PRN Reason: Fever Loratadine [Claritin] 10 mg PO DAILY Lactose-Reduced Food [Boost] 237 ml PO DAILY Discontinued Levofloxacin [Levaquin] 500 mg PO DAILY #7 tab Discharge Medication List Docusate [Colace] 100 mg PO BID 11/19/15 [History] Levothyroxine Sodium [Synthroid] 88 mcg PO DAILY 11/19/15 [History] Fluticasone Nasal [place] [Flonase Nasal [place]] 2 spray EA NOSTRIL DAILY 05/23/16 [History] Acetaminophen Tab [Tylenol] 650 mg PO Q4-6H PRN 10/04/16 [History] Omeprazole [PriLOSEC] 20 mg PO DAILY 10/04/16 [History] Lactose-Reduced Food [Boost] 237 ml PO DAILY 03/01/17 [History] Loratadine [Claritin] 10 mg PO DAILY 03/01/17 [History] Follow up Appointment(s)/Referral(s): Shelby Styles MD [Primary Care Provider] - 1-2 days Discharge Disposition: OTHER INSTITUTION NOT DEFINED
--- NOTE | 2017-03-10 12:30 | P.CONS ---
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 performed by Dr. Salazar. Recently hospitalized a week ago with biliary sepsis fever T-max 104.1 discharged on oral antibiotics. Readmitted with fever chills elevated liver enzymes and jaundice. T-max 102.9. Consult requested for LFT evaluation and treatment recommendations. Presently patient is afebrile. Intermittent chills. Total bilirubin 3.7. AST 190-332. ALT 386-498. Alkaline phosphatase 320-400. Lipase 142. White count 9.9-10.7. Hemoglobin 9.9-10.9. Platelet 313. LFTs 1 week ago total bilirubin 0.7. AST 68. ALT 206. Alkaline phosphates 208. No current abdominal imaging reports review however ultrasound of the liver on 03/02/2017 reported 3 cm mass right posterior lobe liver. Non-mobile isoechoic wall echoes in the neck of gallbladder. CBD 0.9 cm. Review of Systems Constitutional: Denies fever, chills, sweats, weight gain, or loss. HEENT: Negative for migraines, blurred vision or loss, earaches, drainage, tinnitus, oral mucosal lesions, dysphagia, or odynophagia. Cardiac: Negative for chest pain, arrhythmias, or palpitation. Respiratory: Negative for shortness of breath, hemoptysis, cough, or sputum production. Gastrointestinal: See HPI for pertinent findings. Genitourinary: History of testicular cancer. Negative for hematuria, urgency, frequency, polyuria, dysuria, or penile discharge. Musculoskeletal: Negative for muscle aches, swelling, arthritis, and arthralgias. Neurologic: Negative for stroke or TIA. Endocrine: Negative for thyroid problems. Skin: Negative for rash or itching. Psychiatric: Negative history for depression and anxiety Past Medical History Past Medical History: Cancer, Thyroid Disorder Additional Past Medical History / Comment(s): Testicular cancer, pancreatic cancer (diagnosed February 2015), sepsis, hypothyroid. upper/lower bridges History of Any Multi-Drug Resistant Organisms: None Reported Past Surgical History: Hernia Repair, Tonsillectomy Additional Past Surgical History / Comment(s): 1979 left testicle + lymph nodes removed along spine, right inguinal hernia repair x3 with mesh, hemorrhoidectomy (2011), colonoscopy (Jan 2015), titanium stent in pancreas (2015 @ [facility]), restent in 01/2016 ([facility]), smart port. 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 He lives at home with his and son. There is a cat in the home. No recent travel or service. - Past Family History Mother Family Medical History: Cancer Additional Family Medical History / Comment(s): Cancer x 3, lived until age 89. Sister(s) Family Medical History: Cancer Additional Family Medical History / Comment(s): Breast cancer. Brother(s) Family Medical History: Cancer Father Family Medical History: Cancer Additional Family Medical History / Comment(s): Colon/bladder cancer x 3, at 94 Medications and Allergies Home Medications Medication Instructions Recorded Confirmed Type Docusate [Colace] 100 mg PO BID 11/19/15 03/09/17 History Levothyroxine Sodium [Synthroid] 88 mcg PO DAILY 11/19/15 03/09/17 History Fluticasone Nasal [place] [Flonase 2 spray EA NOSTRIL DAILY 05/23/16 03/09/17 History Nasal [place]] Acetaminophen Tab [Tylenol] 650 mg PO Q4-6H PRN 10/04/16 03/09/17 History Omeprazole [PriLOSEC] 20 mg PO DAILY 10/04/16 03/09/17 History Lactose-Reduced Food [Boost] 237 ml PO DAILY 03/01/17 03/09/17 History Loratadine [Claritin] 10 mg PO DAILY 03/01/17 03/09/17 History Allergies Allergy/AdvReac Type Severity Reaction Status Date / Time No Known Allergies Allergy Verified 03/09/17 13:14 Physical Exam Vitals: Vital Signs Temp Pulse Pulse Resp BP BP Pulse Ox 03/10/17 07:00 97.9 F 71 20 114/76 97 03/10/17 05:03 98.2 F 03/10/17 00:58 98.0 F 03/09/17 23:00 95 17 137/82 96 03/09/17 20:55 99.3 F 03/09/17 17:37 100 F H 99 22 108/76 97 03/09/17 17:00 100.6 F H 98 18 119/69 97 03/09/17 15:39 100.4 F H 95 16 113/71 95 03/09/17 14:58 16 03/09/17 14:53 101.6 F H 101 H 16 121/73 95 03/09/17 12:52 102.9 F H 124 H 18 132/75 99 Intake and Output 03/09/17 03/10/17 03/10/17 22:59 06:59 14:59 Intake Total 700 Balance 700 Intake: Intake, IV Titration 600 Amount Sodium Chloride 0.9% 1, 600 000 ml @ 75 mls/hr IV . [id number] ONE Rx#:[id number] Oral 100 Other: Voiding Method Toilet Toilet Toilet # Voids 2 1 1 General appearance: The patient is alert, oriented, in no acute distress. Visibly jaundice. HET: Head is normocephalic and atraumatic. Pupils are equal and reactive. Sclerae icterus. Oropharynx is clear without lesions. Neck: Supple without lymphadenopathy. Trachea midline. Heart: S1 S2. Regular rate and rhythm. Lungs: No crackles or wheezes are heard. Abdomen: Soft, mild tenderness midepigastrium, nondistended with bowel sounds. No peritoneal signs. No palpable organomegaly or masses. Extremities: Normal skin color and turgor. No cyanosis, rash, ulceration, clubbing, or edema. Radial and pedal pulses are 2/4 bilaterally. Neurological: No focal deficits. Strength and sensation are grossly intact. Results CBC & Chem 7: 03/10/17 06:23 03/10/17 06:23 Labs: Abnormal Lab Results - Last 24 Hours (Table) 03/09/17 03/09/17 03/09/17 Range/Units 13:50 14:30 14:30 WBC 10.7 H (3.8-10.6) k/uL RBC 4.12 L (4.30-5.90) m/uL Hgb 10.9 L (13.0-17.5) gm/dL Hct 35.5 L (39.0-53.0) % MCHC 30.6 L (31.0-37.0) g/dL RDW 19.8 H (11.5-15.5) % Neutrophils # 9.1 H (1.3-7.7) k/uL Lymphocytes # 0.6 L (1.0-4.8) k/uL Monocytes # (0-1.0) k/uL Sodium (137-145) mmol/L Glucose (74-99) mg/dL Total Bilirubin (0.2-1.3) mg/dL AST (17-59) U/L ALT (21-72) U/L Alkaline Phosphatase (38-126) U/L Total Creatine Kinase 32 L (55-170) U/L Total Protein (6.3-8.2) g/dL Albumin (3.5-5.0) g/dL Urine Protein Trace H (Negative) Urine Bilirubin 2+ H (Negative) 03/09/17 03/10/17 03/10/17 Range/Units 14:30 06:23 06:23 WBC (3.8-10.6) k/uL RBC 3.75 L (4.30-5.90) m/uL Hgb 9.9 L (13.0-17.5) gm/dL Hct 32.7 L (39.0-53.0) % MCHC 30.4 L (31.0-37.0) g/dL RDW 20.4 H (11.5-15.5) % Neutrophils # (1.3-7.7) k/uL Lymphocytes # (1.0-4.8) k/uL Monocytes # 1.2 H (0-1.0) k/uL Sodium 136 L (137-145) mmol/L Glucose 100 H (74-99) mg/dL Total Bilirubin 3.7 H 3.7 H (0.2-1.3) mg/dL AST 332 H 190 H (17-59) U/L ALT 498 H 386 H (21-72) U/L Alkaline Phosphatase 400 H 320 H (38-126) U/L Total Creatine Kinase (55-170) U/L Total Protein 5.7 L (6.3-8.2) g/dL Albumin 3.0 L (3.5-5.0) g/dL Urine Protein (Negative) Urine Bilirubin (Negative) Microbiology - Last 24 Hours (Table) 03/09/17 13:50 Urine Culture - Preliminary Urine,Voided Assessment and Plan (1) Biliary sepsis Narrative/Plan: Suspect recurrent biliary sepsis with fever elevated LFTs presently off chemotherapy. Current Visit: Yes Status: Acute Code(s): K83.0 - CHOLANGITIS SNOMED Code( s): 97354979 (2) Fever Current Visit: No Status: Acute Priority: High Code(s): R50.9 - FEVER, UNSPECIFIED SNOMED Code(s): 022021000 (3) Cholangitis, recurrent Current Visit: Yes Status: Acute Code(s): K83.0 - CHOLANGITIS SNOMED Code( s): 25489337 (4) Pancreatic cancer Current Visit: No Status: Chronic Code(s): C25.9 - MALIGNANT NEOPLASM OF PANCREAS, UNSPECIFIED SNOMED Code(s): 293468429 Plan: 1. Considering the complexity of his medical history, requiring multiple ERCPs biliary stent placements with multiple hospitalizations for suspected biliary sepsis cholangitis with worsening of fever and liver enzymes despite continuing antibiotic therapy, Dr. Taveras recommends transfer to tertiary center [facility] for reevaluation and ERCP and/or other indicated procedures as advised. Patient is requesting Dr. Salazar who performed his previous ERCP and biliary stenting in November 2016. 2. Continue intravenous antibiotics. Plan of care recommendations were discussed with patient and his ; both are agreeable with transfer. Case was also discussed with oncology. Thank you for this kind referral and the opportunity to participate in the care of your patient. This consultation was discussed with Dr. Taveras. The impression and plan of care have been directed as dictated.
[2017-03-10 15:39] VITALS: BP 148/87; PULSE 75; TEMP 98
--- NOTE | 2017-03-10 15:43 | P.CON ---
Consult Note - . Consult date: 03/10/17 Assessment/Plan:: This is a 66-year-old male who has a past medical history significant for pancreatic cancer currently on chemotherapy under the care of Dr. Dominguez diagnosed in February 2015. He is on Gemzar for 3 weeks and off 1 week. He had a recent hospitalization March 01 through March 04 with obstruction of the biliary tract. He was discharged home on Levaquin for 7 days. He states today would be his final dose. Patient started with high-grade fever and chills and came back into [facility] emergency center for evaluation. Temperature was 102.9 with white count of 10.7. Total bilirubin and liver function tests were all elevated. Albumin 3.5. Urinalysis was negative for infection. Influenza testing negative. Lactic acid 0.8. Chest x-ray showed no acute abnormality. He has had an occasional dry cough. Patient states he did have some loose stools just today but none today. He denies any nausea or vomiting. He denies any abdominal pain, dysuria. He has hungry and is currently nothing by mouth status. GI is on consult as well as oncology. Patient has been off chemotherapy since his last admission. Please see the consult note is dictated by nurse practitioner Mrs. Chinyere Rutledge. Patient relates is feeling better since coming to Hospital receiving fluids alteration of antibiotic therapy to Zosyn. There is concern that the patient's biliary stent is again malfunctioning resulting in the marked increase of his bilirubin and the recurrence of his fever and sepsis. Fortunately with above treatment he feels considerably better. Zosyn will continue for now. Cultures are in process. Given the patient's complexity and malfunction of the stent he will be transferred to his hepatology services [facility] for evaluation and potential exchange of his stents. He fortunately his hemoglobin is stable at this time. I agree with evaluation, assessment and plan as dictated by nurse practitioner Mrs. Chinyere Rutledge.
--- NOTE | 2017-03-10 17:58 | P.CONS ---
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 Oliver's medical consultation from 8 days ago for full details of patient's malignancy history Patient was discharged on oral antibiotics last week after admit for fever, his LFTs were elevated as well but, with treatment pt improved. Unfortunately, fever returned while on abx so, he has come back to the hospital, he has been started on IV antibiotics with reduction in fever pattern. Patient denies confusion, oral irritation, nausea, cough, abdominal pain or bloating, changes in bowel or bladder habits, no bleeding, bruising, swelling or pain. Review of Systems 10 point review of systems is as stated in HPI Past Medical History Past Medical History: Cancer, Thyroid Disorder Additional Past Medical History / Comment(s): Testicular cancer, pancreatic cancer (diagnosed February 2015), sepsis, hypothyroid. upper/lower bridges History of Any Multi-Drug Resistant Organisms: None Reported Past Surgical History: Hernia Repair, Tonsillectomy Additional Past Surgical History / Comment(s): 1979 left testicle + lymph nodes removed along spine, right inguinal hernia repair x3 with mesh, hemorrhoidectomy (2011), colonoscopy (Jan 2015), titanium stent in pancreas (2015 @ [place]), restent in 01/2016 ([facility]), smart port. 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 He lives at home with his and son. There is a cat in the home. No recent travel or service. Past Drug Use History: None Reported - Past Family History Mother Family Medical History: Cancer Additional Family Medical History / Comment(s): Cancer x 3, lived until age 89. Sister(s) Family Medical History: Cancer Additional Family Medical History / Comment(s): Breast cancer. Brother(s) Family Medical History: Cancer Father Family Medical History: Cancer Additional Family Medical History / Comment(s): Colon/bladder cancer x 3, at 94 Medications and Allergies Home Medications Medication Instructions Recorded Confirmed Type Docusate [Colace] 100 mg PO BID 11/19/15 03/09/17 History Levothyroxine Sodium [Synthroid] 88 mcg PO DAILY 11/19/15 03/09/17 History Fluticasone Nasal [place] [Flonase 2 spray EA NOSTRIL DAILY 05/23/16 03/09/17 History Nasal [place]] Acetaminophen Tab [Tylenol] 650 mg PO Q4-6H PRN 10/04/16 03/09/17 History Omeprazole [PriLOSEC] 20 mg PO DAILY 10/04/16 03/09/17 History Lactose-Reduced Food [Boost] 237 ml PO DAILY 03/01/17 03/09/17 History Loratadine [Claritin] 10 mg PO DAILY 03/01/17 03/09/17 History Allergies Allergy/AdvReac Type Severity Reaction Status Date / Time No Known Allergies Allergy Verified 03/09/17 13:14 Physical Exam Vitals: Vital Signs Temp Pulse Resp BP Pulse Ox 03/10/17 15:00 98 F 75 20 148/87 98 03/10/17 07:00 97.9 F 71 20 114/76 97 03/10/17 05:03 98.2 F 03/10/17 00:58 98.0 F 03/09/17 23:00 95 17 137/82 96 03/09/17 20:55 99.3 F Intake and Output 03/10/17 03/10/17 03/10/17 06:59 14:59 22:59 Intake Total 50 Balance 50 Intake: Intake, IV Titration 50 Amount Piperacillin-Tazobactam 3 50 .375 gm In Dextrose/Water 1 50ml.bag @ 12.5 mls/hr IVPB ONCE STA Rx#: [id number] Other: Voiding Method Toilet Toilet # Voids 1 3 # Bowel Movements 0 - Constitutional General appearance: average body habitus, cooperative, no acute distress - EENT Eyes: anicteric sclerae, EOMI ENT: normal oropharynx - Neck Neck: no lymphadenopathy - Respiratory Respiratory: bilateral: CTA - Cardiovascular Heart sounds: normal: S1, S2 Abnormal Heart Sounds: no systolic murmur, no diastolic murmur, no rub, no S3 Gallop, no S4 Gallop, no click, no other leg Peripheral Edema: bilateral: None - Gastrointestinal General gastrointestinal: no absent bowel sounds, no decreased bowel sounds, no distended, no hepatomegaly, no hyperactive bowel sounds, normal bowel sounds, no organomegaly, no rigid, no scaphoid, soft, no splenomegaly, no tenderness, no umbilical hernia, no ventral hernia - Integumentary Integumentary: normal - Neurologic Neurologic: CNII-XII intact - Musculoskeletal Musculoskeletal: strength equal bilaterally - Psychiatric Psychiatric: A&O x's 3, appropriate affect, intact judgment & insight Results CBC & Chem 7: 03/10/17 06:23 03/10/17 06:23 Labs: Abnormal Lab Results - Last 24 Hours (Table) 03/10/17 03/10/17 Range/Units 06:23 06:23 RBC 3.75 L (4.30-5.90) m/uL Hgb 9.9 L (13.0-17.5) gm/dL Hct 32.7 L (39.0-53.0) % MCHC 30.4 L (31.0-37.0) g/dL RDW 20.4 H (11.5-15.5) % Monocytes # 1.2 H (0-1.0) k/uL Total Bilirubin 3.7 H (0.2-1.3) mg/dL AST 190 H (17-59) U/L ALT 386 H (21-72) U/L Alkaline Phosphatase 320 H (38-126) U/L Total Protein 5.7 L (6.3-8.2) g/dL Albumin 3.0 L (3.5-5.0) g/dL Microbiology - Last 24 Hours (Table) 03/09/17 13:50 Urine Culture - Final Urine,Voided 03/09/17 14:30 Blood Culture - Preliminary Blood No Growth after 24 hours Chest x-ray: report reviewed Assessment and Plan (1) Fever Status: Acute Priority: High Code(s): R50.9 - FEVER, UNSPECIFIED SNOMED Code(s): 415386105 (2) Biliary infection Status: Acute Priority: High Code(s): K83.0 - CHOLANGITIS SNOMED Code(s): 036910258 (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 Concern is recurrent fever, while on antibiotics, when this has happened in the past and patient has had to have biliary duct stent exchange. Patient will continue on antibiotics for now , Dr. Taveras has been consulted as she has facilitated patient having stent exchange at [facility]. Patient's treatment was held last week, this is patient's week off of treatment , patient will be followed up in the office prior to resuming treatment.
--- NOTE | 2017-03-17 22:53 | CONS ---
CONSULTATION DATE OF SERVICE: 03/17/2017 REASON FOR CONSULTATION: Fever. HISTORY OF PRESENT ILLNESS: The patient is a 66-year-old male with a past medical history significant for pancreatic cancer with obstructed biliary duct, for which the patient is on chemotherapy. The patient did have recently multiple admissions to this facility. Initial admission was March 01 through , when the patient did have obstructed biliary tract, treated with 7 days of Levaquin. However, the patient presented back on March 09 with a fever. At that time he was noticed to have elevated bilirubin with liver enzymes. He was diagnosed with obstructed biliary duct and subsequently transferred to [facility], where the patient was evaluated by the services there. They did ERCP and he was noticed to have obstruction of the metal stent ; he has 3 of them. He had removal of the obstruction with balloon plasty. There was some pus drained out; not sure if that pus was cultured. The patient was subsequently discharged home on oral Cipro and Flagyl, which the patient is currently taking. The patient was discharged home on . On Wednesday he started having mostly URI symptoms with some runny nose, congestion and a dry hacking cough and he started having a fever, here of 100.4 to 100.9. With the persistence of these symptoms, he was advised to come to the [facility] ER, where the patient has been evaluated by the ER physician. In the ER the patient did have a fever of 101.4 degrees Fahrenheit. The patient had normal white count of 6.5. His liver enzymes were slightly elevated and AST was of 62, ALT 138; however, the bilirubin was 0.7. UA has been negative. Influenza PCR was negative. Chest x-ray was reported to be negative for any acute cardiopulmonary process. He was continued on Cipro and Flagyl and admitted to the floor. ID was consulted for further recommendation regarding antibiotic therapy. The patient denies having any chest pain or shortness of breath. Very minimal cough. No abdominal pain. No nausea. No vomiting. No diarrhea. No urinary symptoms. He did have a Mediport that could not be accessed last night. He has no symptoms referable to the port site, with no swelling or any redness. REVIEW OF SYSTEMS: CONSTITUTIONAL: Positive for weakness along with a fever. EYES: No complaint. ENT: As per HPI. RESPIRATORY: As per HPI. CARDIOVASCULAR: No complaint. GENITOURINARY: No complaint. GASTROINTESTINAL: No complaint. MUSCULOSKELETAL: No complaint. INTEGUMENTARY: No complaint. PSYCHOLOGICAL: No complaint. ENDOCRINE: No complaint. NEUROLOGICAL: No complaint. PAST MEDICAL HISTORY: 1. Pancreatic cancer. 2. Testicular cancer. 3. Sepsis. 4. Hypothyroidism. PAST SURGICAL HISTORY: 1. Hernia repair. 2. Tonsillectomy. 3. Left testicle removal in 1979. 4. Right inguinal hernia repair x3 with mesh. 5. Hemorrhoidectomy. 6. Colonoscopy. 7. Mediport placement. 8. stent in the pancreas at [facility]. 9. Recent ERCP at [facility]. SOCIAL HISTORY: No history of smoking, drinking or drug use. FAMILY HISTORY: Mother with history of cancer; exact location not documented. Sister with a history of breast cancer. ALLERGIES: NO KNOWN DRUG ALLERGIES. CURRENT MEDICATION: 1. He did receive a dose of Rocephin in the ER. 2. Cipro. 3. Flagyl. 4. Actigall. 5. Restoril. 6. Protonix. 7. Synthroid. 8. Mucinex. 9. Colace. 10.Xanax. 11.Tylenol. PHYSICAL EXAMINATION: Blood pressure is 161/75 with a pulse of 79, temperature of 99.1. He is 97% on room air. General description is an elderly male up in the bed in no distress. No tachypnea or accessory muscle of respiration use. HEENT examination shows slight pallor. No scleral icterus. Oral mucosa membrane is moist. No significant pharyngeal erythema or thrush. NECK: Trachea is central. No thyromegaly. LUNGS: Unlabored breathing. Clear to auscultation. No wheeze or crackle. HEART: S1, S2. Regular rate and rhythm. ABDOMEN: Soft. No tenderness. No guarding. No rigidity. No organomegaly. EXTREMITIES: No edema of feet. SKIN EXAMINATION: No rash or mass palpable. The left chest wall Mediport site looks clean with no swelling, no redness. Neurologically patient is awake, alert, oriented x3. Mood and affect normal. LABS: Hemoglobin is 10.6, white count 6.5 with a BUN of 14, creatinine 0.90. Electrolytes have been normal. Lactic acid 1.3. Liver enzymes slightly elevated. UA has been negative. Chest x-ray report negative. DIAGNOSTIC IMPRESSION AND PLAN: Patient admitted to hospital with a fever in a patient who does have a history of pancreatic cancer with obstructed biliary tract. He did have a recent ERCP with removal of obstruction; however, the metal stent was not changeable. There was some pus suctioned out during that procedure as well, likely representing an infected biliary tract. He has been on oral Cipro and Flagyl, now with a fever with symptoms mostly URI with a question of possible influenza to be the likely differential. However, underlying biliary tract infection is not entirely excluded. In view of the findings as discussed above, the patient has no other clinical focus of infection. His lungs sound clear to auscultation. Chest x-ray was negative for pneumonia. Urine has been negative. Patient has no urinary symptoms. No evidence of any cellulitis and the Mediport site looks clean. PLAN: 1. Will repeat his influenza nasopharyngeal swab. 2. Will discontinue Cipro and Flagyl. 3. Will start the patient on Zosyn 3.375 grams q.8 and Tamiflu 75 p.o. b.i.d. while waiting for the culture to finalize. 4. Depending upon his clinical response as well as the cultures, will adjust the medications further if needed. was present at bedside. All her questions were answered. The patient will be signed out to Dr. Spivey on Wednesday when he is back if the patient is still here. MMTHANGL / ELION: [id number] / MTDD
== END 2017-03-10 16:40 | disposition short-term general hospital (02) | DRG 872 ==
LOC: EC 12:48 → 5ONC 15:41
PROVIDERS: ADMIT Internal Medicine; ATTEND Internal Medicine
DX: A41.9 Sepsis, unspecified organism (principal); K83.0 Cholangitis; C25.9 Malignant neoplasm of pancreas, unspecified; C78.7 Secondary malignant neoplasm of liver and intrahepatic bile duct; D63.0 Anemia in neoplastic disease; E03.9 Hypothyroidism, unspecified; Z79.51 Long term (current) use of inhaled steroids; Z79.899 Other long term (current) drug therapy; Z96.89 Presence of other specified functional implants; Z85.47 Personal history of malignant neoplasm of testis; Z92.21 Personal history of antineoplastic chemotherapy
CPT/HCPCS: 36415; 71046; 80053; 81003; 82150; 82550; 82553; 83605; 83690; 84484; 85025; 85610; 85730; 87040; 87086; 87502; 93005; 96365; 96366; 99285

== ENCOUNTER → 2017-04-16 | Outpatient (CLI) | payer OTHER, MEDICARE, BC ==
[2017-04-16 11:44] LABS: Blood Urea Nitrogen 19 mg/dL (9-20)
--- NOTE | 2017-04-16 13:02 | CT ---
EXAMINATION TYPE: CT ChestAbdPelvis w con DATE OF EXAM: 04/16/2017 COMPARISON: Prior CT 01/29/2017 HISTORY: Biliary Duct CA CT DLP: 2046 mGycm Automated exposure control for dose reduction was used. CONTRAST: CT scan of the chest, abdomen and pelvis is performed with Oral Contrast and with IV Contrast, patien t injected with 100 mL of Omnipaque 300. FINDINGS: LUNGS: The lungs are grossly clear, there is no concerning parenchymal mass or nodule identified. T here is no pleural effusion or pneumothorax seen. The tracheobronchial tree is patent. MEDIASTINUM: There are no greater than 1 cm hilar or mediastinal lymph nodes. No pericardial effusi on is seen. AORTA: No significant abnormality is seen. OTHER: No additional significant abnormality is seen. LIVER/GB: The mass in the posterior right lobe of the liver measures approximately 5.2 x 4 point a by 4 cm in size and has increased compared to prior. Biliary stent is in place, there is pneumobilia. PANCREAS: Stable in appearance. SPLEEN: No significant abnormality is seen. ADRENALS: Stable, left adrenal gland is not noted. KIDNEYS: No significant abnormality is seen. REPRODUCTIVE ORGANS: No gross abnormality seen. BOWEL: No significant abnormality is seen. FREE AIR: No Free Air visible. ASCITES: None seen. RETROPERITONEAL ADENOPATHY: There are extensive artifacts due to retroperitoneal node dissection. Ag ain noted is a mesenteric node on axial image 60 measuring approximately 19 by 13 mm in size with alex tral low attenuation which is decreased in size compared to prior of 2.0 x 1.8 cm. LYMPH NODES: No greater than 1 cm abdominal or pelvic lymph nodes are appreciated. URINARY BLADDER: No significant abnormality is seen. PELVIC ADENOPATHY: None visualized. OSSEOUS STRUCTURES: No significant abnormality is seen. IMPRESSION: The right lobe liver mass has increased in size, mesenteric node has decreased in size sl ightly in the interval. No other significant interval change evident.
== END | disposition home or self-care (01) ==
LOC: RADPROMAIN 10:30
PROVIDERS: ATTEND Internal Medicine Hematology & Oncology
DX: C24.9 Malignant neoplasm of biliary tract, unspecified (principal); I89.8 Other specified noninfective disorders of lymphatic vessels and lymph nodes
CPT/HCPCS: 82565; 84520; 71260; 74177; Q9967; J1642

== ENCOUNTER → 2017-05-28 | Outpatient (CLI) | payer OTHER, MEDICARE, BC ==
[2017-05-28 10:57] LABS: Blood Urea Nitrogen 15 mg/dL (9-20)
--- NOTE | 2017-05-28 13:14 | CT ---
EXAMINATION TYPE: CT ChestAbdPelvis w con DATE OF EXAM: 05/28/2017 COMPARISON: 04/16/2017 and 01/29/2017 HISTORY: 66-year-old male Carcinoma of Biliary Duct TECHNIQUE: Contiguous axial scanning of the test, abdomen, and pelvis performed with IV Contrast, pat ient injected with 100 mL of Isovue 300. Delayed images through the kidneys were obtained. Coronal/sa gittal reconstructions performed. CT DLP: 1410.4 mGycm Automated exposure control for dose reduction was used. FINDINGS: Chest: Heart is normal size without pericardial effusion. Aorta is normal caliber with bovine configuration to the aortic arch. Left anterior chest wall injection port with catheter tip at the cavoatrial junction. No thoracic lymphadenopathy. Asymmetric elevation of the left hemidiaphragm is unchanged. Strandy scarring at the left base. No consolidation or pleural effusion. ABDOMEN: A metallic biliary stent remains in place with similar mild intrahepatic biliary ductal dilatation bu t with interval clearance of the previous pneumobilia. Some peripheral hypervascular in the posterior right hepatic dome axial image 48 equilibrates on the delayed kidney images suggesting an area of vascular shunting. Heterogeneous hypodense lobulated mass within segment 6 of the posterior inferior right liver lobe me asures 5.9 cm AP by 5.5 cm wide on axial image 55 and coronal image 64, respectively. Previously, thi s measured 5.2 cm AP by 4.1 cm wide on 04/16/2017. There is peripheral patchy enhancement and central hypodensity. A fernandez hepatic lymph node is larger measuring 1.9 cm short axis versus 1.2 cm, previously. Gastrohep atic ligament lymph node is larger and 9 mm versus 4 mm, previously. Portacaval lymph node measures 1.6 cm versus 1.0 cm, previously. The left mesenteric lymph node is relatively unchanged at 1 cm. Multiple additional mesenteric lymph nodes are either stable or slightly larger measuring up to 8 mm versus 6 mm, previously. There is extensive metal artifact along the retroperitoneum from multiple surgical clips. Streak and beam hardening artifact from these clips limit assessment of the retroperitoneum. Gallbladder, right adrenal gland, kidneys, spleen with anterior splenule, and pancreas appear grossly unremarkable. Unable to clearly visualize the left adrenal gland. No dilated small bowel, free fluid, or free air. Oral contrast has progressed to the splenic flexure. There is scattered mild stool without pericoloni c inflammatory change. Pelvis: Bladder urine distended. Prostate gland measures 4.4 cm wide. Multiple pelvic phleboliths. No abnorma l fluid collection in the pelvis or pelvic lymphadenopathy seen. Bones: Mild degenerative changes at the hips. Disc/endplate degenerative changes as well as multilevel facet arthropathy mid to lower lumbar spine. There is left-sided L5 pars defect and mild degenerative disc disease throughout the lower thoracic spine. No osseous destructive process. IMPRESSION: 1. RIGHT HEPATIC LOBE MASS MEASURES LARGER (5.9 X 5.5 CM) VERSUS 5.2 X 4.1 CM ON 04/21/2017. 2. INTERVAL ENLARGEMENT OF A PORTAHEPATIC LYMPH NODE (1.9 VERSUS 1.2 CM, PREVIOUSLY). 3. INTERVAL ENLARGEMENT OF A PORTACAVAL LYMPH NODE (1.6 CM VERSUS 1.0 CM, PREVIOUSLY). 4. SCATTERED ADDITIONAL 1 CM AND SMALLER MESENTERIC LYMPH NODES ARE EITHER STABLE OR SLIGHTLY LARGER WELL. 5. METALLIC BILIARY STENT REMAINS IN PLACE WITH SIMILAR MILD INTRAHEPATIC BILIARY DUCTAL DILATATION B UT INTERVAL CLEARANCE OF THE PREVIOUS PNEUMOBILIA. 6. INCIDENTAL LEFT-SIDED L5 PARS DEFECT.
== END | disposition home or self-care (01) ==
LOC: RADPROMAIN 10:12
PROVIDERS: ATTEND Internal Medicine Hematology & Oncology
DX: C24.9 Malignant neoplasm of biliary tract, unspecified (principal); R16.0 Hepatomegaly, not elsewhere classified; R59.0 Localized enlarged lymph nodes; Z96.89 Presence of other specified functional implants
CPT/HCPCS: 82565; 84520; 71260; 74177; J1642; Q9967

== ENCOUNTER 2017-06-01 13:54 | Inpatient (IN) | payer OTHER, MEDICARE, BC ==
[2017-06-01] MEDS ORDERED: IBUPROFEN 600 MG TAB PO STA (15:16)
[2017-06-01] MEDS ORDERED: SODIUM CHLORIDE 0.9% 1,000 ML IV STA ×2 (15:16)
--- NOTE | 2017-06-01 15:36 | ED ---
Fever HPI <Rob Jensen - Last Filed: 06/01/17 17:45> - General Source: patient, RN notes reviewed, old records reviewed Mode of arrival: ambulatory Limitations: no limitations <Addie Phillips - Last Filed: 06/01/17 18:01> - General Chief Complaint: Fever Stated Complaint: fever/chills-cancer pt Time Seen by Provider: 06/01/17 14:57 - History of Present Illness Initial Comments: This patient's a 67-year-old male with history of stage IV pancreatic cancer presents emergency Department with onset of fever and chills today. His last chemotherapy treatment was on May 21. He reports that he has no other complaints with his fever and chills such as coughing or congestion. He denies any significant abdominal pain. He's had a history of a biliary stent infection. He states that he has no significant abdominal pain related to that like his previous infections at this time. He recently had a computed tomography scan done 4 days ago. He was informed that his masses were becoming larger and they are going to change the type of chemotherapy. Patient relates that he feels very weak and dehydrated. His oncologist is Dr. Dominguez. (Addie Phillips) - Related Data Home Medications Medication Instructions Recorded Confirmed Docusate [Colace] 100 mg PO BID 11/19/15 06/01/17 Fluticasone Nasal [place] [Flonase 2 spray EA NOSTRIL DAILY 05/23/16 06/01/17 Nasal [place]] Acetaminophen Tab [Tylenol] 650 mg PO Q4-6H PRN 10/04/16 06/01/17 Omeprazole [PriLOSEC] 20 mg PO DAILY 10/04/16 06/01/17 Lactose-Reduced Food [Boost] 237 ml PO DAILY 03/01/17 06/01/17 Ursodiol 300 mg PO BID 03/16/17 06/01/17 Levothyroxine Sodium [Synthroid] 100 mcg PO DAILY 06/01/17 06/01/17 Allergies Allergy/AdvReac Type Severity Reaction Status Date / Time No Known Allergies Allergy Verified 06/01/17 14:44 Review of Systems ROS Other: All systems not noted in ROS Statement are negative. <Rob Jensen - Last Filed: 06/01/17 17:45> ROS Other: All systems not noted in ROS Statement are negative. <Addie Phillips - Last Filed: 06/01/17 18:01> ROS Statement: Those systems with pertinent positive or pertinent negative responses have been documented in the HPI. Past Medical History Past Medical History: Cancer, Thyroid Disorder Additional Past Medical History / Comment(s): Testicular cancer, pancreatic cancer (diagnosed February 2015), sepsis, hypothyroid. upper/lower bridges History of Any Multi-Drug Resistant Organisms: None Reported Past Surgical History: Hernia Repair, Tonsillectomy Additional Past Surgical History / Comment(s): 1979 left testicle + lymph nodes removed along spine, right inguinal hernia repair x3 with mesh, hemorrhoidectomy (2011), colonoscopy (Jan 2015), titanium stent in pancreas (2015 @ [place]), restent in 01/2016 ([facility]), smart port. Past Anesthesia/Blood Transfusion Reactions: No Reported Reaction Past Psychological History: No Psychological Hx Reported Smoking Status: Never smoker Past Alcohol Use History: None Reported Past Drug Use History: None Reported - Past Family History Mother Family Medical History: Cancer Additional Family Medical History / Comment(s): Cancer x 3, lived until age 89. Sister(s) Family Medical History: Cancer Additional Family Medical History / Comment(s): Breast cancer. Brother(s) Family Medical History: Cancer Father Family Medical History: Cancer Additional Family Medical History / Comment(s): Colon/bladder cancer x 3, at 94 <Addie Phillips - Last Filed: 06/01/17 18:01> General Exam <Rob Jensen - Last Filed: 06/01/17 17:45> Limitations: no limitations General appearance: alert, in no apparent distress Head exam: Present: atraumatic, normocephalic, normal inspection Eye exam: Present: normal appearance, PERRL, EOMI. Absent: scleral icterus, conjunctival injection, periorbital swelling ENT exam: Present: normal exam Neck exam: Present: normal inspection. Absent: tenderness, meningismus, lymphadenopathy Respiratory exam: Present: normal lung sounds bilaterally. Absent: respiratory distress, wheezes, rales, rhonchi, stridor Cardiovascular Exam: Present: regular rate, normal rhythm, normal heart sounds. Absent: systolic murmur, diastolic murmur, rubs, gallop, clicks GI/Abdominal exam: Present: soft, normal bowel sounds, other (Scar noted over the abdomen. No significant tenderness.). Absent: distended, tenderness, guarding, rebound, rigid Back exam: Present: normal inspection Neurological exam: Present: alert, oriented X3, CN II-XII intact <JacquelineAddie clancy - Last Filed: 06/01/17 18:01> - General Exam Comments Initial Comments: this is a 67-year-old male. Alert and oriented. No distress. 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 Today he awakened with a fever in the ER is 102.3. The patient's has been receiving up until approximately 10 days ago chemotherapy for biliary cancer. The patient does have a biliary stent. Patient was in hospital several months ago with infections. Being treated at that time by infectious disease doctorPatric. Today's workup for sepsis continues. The patient complaint of fever and chills but no pain. I discussed the case with oncologist Dr. Hernandes. He recommends starting antibiotics after urine and blood cultures have been taken. The patient was started on cefepime and vancomycin Labs show white count 12.7 hemoglobin 10 hematocrit of 33, liver enzymes elevated. Influenza AB-. Urine clean no signs of infection. Chest x-ray was done and reviewed by radiologist his impression is there is blunting of left costophrenic angle. Right lung is clear. There is no heart failure. There is left subclavian catheter jugular catheter with the tip in the superior vena cava. The bony thorax is intact. There are numerous surgical clips in the upper abdomen. Impression pleural effusion and pleural diaphragmatic reaction without change compared to last exam. No heart failure. Normal heart. As read by Dr. Varela Patient is not complaining of pain. Vital signs, temp 102.3, pulse 108 respiratory rate 18 pulse ox 98% room air blood pressure 124/60. Lungs clear to auscultation abdomen was soft palpation. Patient be admitted to general medicine with consultation from oncology and infectious disease. Dr. Jensen (Rob Jensen) Dr. Jensen discussed this with the on-call oncologist Dr. Oliver. Recommend starting the patient on 2 g of cefepime and vancomycin. This was ordered. ( Addie Phillips) - Lab Data Lab Results 06/01/17 06/01/17 06/01/17 Range/Units 16:12 16:12 16:12 WBC (3.8-10.6) k/uL RBC (4.30-5.90) m/uL Hgb (13.0-17.5) gm/dL Hct (39.0-53.0) % MCV (80.0-100.0) fL MCH (25.0-35.0) pg MCHC (31.0-37.0) g/dL RDW (11.5-15.5) % Plt Count (150-450) k/uL Neutrophils % % Lymphocytes % % Monocytes % % Eosinophils % % Basophils % % Neutrophils # (1.3-7.7) k/uL Lymphocytes # (1.0-4.8) k/uL Monocytes # (0-1.0) k/uL Eosinophils # (0-0.7) k/uL Basophils # (0-0.2) k/uL Hypochromasia Poikilocytosis Anisocytosis PT 10.1 (9.0-12.0) sec INR 1.0 (<1.2) APTT 23.8 (22.0-30.0) sec Sodium 137 (137-145) mmol/L Potassium 4.5 (3.5-5.1) mmol/L Chloride 101 (98-107) mmol/L Carbon Dioxide 24 (22-30) mmol/L Anion Gap 12 mmol/L BUN 19 (9-20) mg/dL Creatinine 0.80 (0.66-1.25) mg/dL Est GFR (CKD-EPI)AfAm >90 (>60 ml/min/1.73 sqM) Est GFR (CKD-EPI)NonAf >90 (>60 ml/min/1.73 sqM) Glucose 95 (74-99) mg/dL Plasma Lactic Acid Paddy (0.7-2.0) mmol/L Calcium 9.4 (8.4-10.2) mg/dL Total Bilirubin 0.8 (0.2-1.3) mg/dL AST 95 H (17-59) U/L ALT 130 H (21-72) U/L Alkaline Phosphatase 187 H (38-126) U/L Total Protein 6.7 (6.3-8.2) g/dL Albumin 3.8 (3.5-5.0) g/dL Amylase 67 (30-110) U/L Lipase 169 (23-300) U/L Urine Color Urine Appearance (Clear) Urine pH (5.0-8.0) Ur Specific [place] (1.001-1.035) Urine Protein (Negative) Urine Glucose (UA) (Negative) Urine Ketones (Negative) Urine Blood (Negative) Urine Nitrite (Negative) Urine Bilirubin (Negative) Urine Urobilinogen (<2.0) mg/dL Ur Leukocyte Esterase (Negative) Heterophile Antibody Negative (Negative) Influenza Type A RNA (Not Detectd) Influenza Type B (PCR) (Not Detectd) 06/01/17 06/01/17 06/01/17 Range/Units 16:12 16:12 16:12 WBC 12.7 H (3.8-10.6) k/uL RBC 4.06 L (4.30-5.90) m/uL Hgb 10.9 L (13.0-17.5) gm/dL Hct 33.4 L (39.0-53.0) % MCV 82.1 (80.0-100.0) fL MCH 26.8 (25.0-35.0) pg MCHC 32.6 (31.0-37.0) g/dL RDW 19.2 H (11.5-15.5) % Plt Count 230 (150-450) k/uL Neutrophils % 83 % Lymphocytes % 5 % Monocytes % 9 % Eosinophils % 0 % Basophils % 0 % Neutrophils # 10.5 H (1.3-7.7) k/uL Lymphocytes # 0.6 L (1.0-4.8) k/uL Monocytes # 1.2 H (0-1.0) k/uL Eosinophils # 0.0 (0-0.7) k/uL Basophils # 0.0 (0-0.2) k/uL Hypochromasia Slight Poikilocytosis Slight Anisocytosis Slight PT (9.0-12.0) sec INR (<1.2) APTT (22.0-30.0) sec Sodium (137-145) mmol/L Potassium (3.5-5.1) mmol/L Chloride (98-107) mmol/L Carbon Dioxide (22-30) mmol/L Anion Gap mmol/L BUN (9-20) mg/dL Creatinine (0.66-1.25) mg/dL Est GFR (CKD-EPI)AfAm (>60 ml/min/1.73 sqM) Est GFR (CKD-EPI)NonAf (>60 ml/min/1.73 sqM) Glucose (74-99) mg/dL Plasma Lactic Acid Paddy 1.0 (0.7-2.0) mmol/L Calcium (8.4-10.2) mg/dL Total Bilirubin (0.2-1.3) mg/dL AST (17-59) U/L ALT (21-72) U/L Alkaline Phosphatase (38-126) U/L Total Protein (6.3-8.2) g/dL Albumin (3.5-5.0) g/dL Amylase (30-110) U/L Lipase (23-300) U/L Urine Color Urine Appearance (Clear) Urine pH (5.0-8.0) Ur Specific [place] (1.001-1.035) Urine Protein (Negative) Urine Glucose (UA) (Negative) Urine Ketones (Negative) Urine Blood (Negative) Urine Nitrite (Negative) Urine Bilirubin (Negative) Urine Urobilinogen (<2.0) mg/dL Ur Leukocyte Esterase (Negative) Heterophile Antibody (Negative) Influenza Type A RNA Not Detected (Not Detectd) Influenza Type B (PCR) Not Detected (Not Detectd) 06/01/17 Range/Units 16:20 WBC (3.8-10.6) k/uL RBC (4.30-5.90) m/uL Hgb (13.0-17.5) gm/dL Hct (39.0-53.0) % MCV (80.0-100.0) fL MCH (25.0-35.0) pg MCHC (31.0-37.0) g/dL RDW (11.5-15.5) % Plt Count (150-450) k/uL Neutrophils % % Lymphocytes % % Monocytes % % Eosinophils % % Basophils % % Neutrophils # (1.3-7.7) k/uL Lymphocytes # (1.0-4.8) k/uL Monocytes # (0-1.0) k/uL Eosinophils # (0-0.7) k/uL Basophils # (0-0.2) k/uL Hypochromasia Poikilocytosis Anisocytosis PT (9.0-12.0) sec INR (<1.2) APTT (22.0-30.0) sec Sodium (137-145) mmol/L Potassium (3.5-5.1) mmol/L Chloride (98-107) mmol/L Carbon Dioxide (22-30) mmol/L Anion Gap mmol/L BUN (9-20) mg/dL Creatinine (0.66-1.25) mg/dL Est GFR (CKD-EPI)AfAm (>60 ml/min/1.73 sqM) Est GFR (CKD-EPI)NonAf (>60 ml/min/1.73 sqM) Glucose (74-99) mg/dL Plasma Lactic Acid Paddy (0.7-2.0) mmol/L Calcium (8.4-10.2) mg/dL Total Bilirubin (0.2-1.3) mg/dL AST (17-59) U/L ALT (21-72) U/L Alkaline Phosphatase (38-126) U/L Total Protein (6.3-8.2) g/dL Albumin (3.5-5.0) g/dL Amylase (30-110) U/L Lipase (23-300) U/L Urine Color Yellow Urine Appearance Clear (Clear) Urine pH 6.5 (5.0-8.0) Ur Specific [place] 1.028 (1.001-1.035) Urine Protein Trace H (Negative) Urine Glucose (UA) Negative (Negative) Urine Ketones Negative (Negative) Urine Blood Negative (Negative) Urine Nitrite Negative (Negative) Urine Bilirubin Negative (Negative) Urine Urobilinogen 3.0 (<2.0) mg/dL Ur Leukocyte Esterase Negative (Negative) Heterophile Antibody (Negative) Influenza Type A RNA (Not Detectd) Influenza Type B (PCR) (Not Detectd) 06/01/17 18:00 EKG performed at 1638 shows sinus tachycardia, minimal voltage criteria for LVH. Cannot rule out anterior infarct. Ventricular rate of 160 beats were minute period. Intervals 142 ms. QRS duration 82 ms. QT QTc is 300/417 ms. No evidence of ST elevation or T-wave inversion. (Addie Phillips) - Radiology Data Chest x-ray shows evidence of pleural effusion diaphragmatic reaction without change compared to last exam. No heart failure. Normal heart. (Addie Phillips ) Disposition <Rob Jensen - Last Filed: 06/01/17 17:45> Time of Disposition: 18:01 <Addie Phillips - Last Filed: 06/01/17 18:01> Clinical Impression: Sepsis, Pancreatic mass, Sinus tachycardia, Fever Disposition: ADMITTED IP TO THIS HOSP Condition: Stable Referrals: Shelby Styles MD [Primary Care Provider] - 1-2 days
[2017-06-01 16:35] LABS: Anisocytosis Slight; Basophils % (A) 0 %; Eosinophils % (A) 0 %; HCT 33.4 % (39.0-53.0); HGB 10.9 gm/dL (13.0-17.5); Hypochromasia Slight; Lymphocytes # (A) 0.6 k/uL (1.0-4.8); Lymphocytes % (A) 5 %; MCH 26.8 pg (25.0-35.0); MCHC 32.6 g/dL (31.0-37.0); MCV 82.1 fL (80.0-100.0); Monocytes # (A) 1.2 k/uL (0-1.0); Monocytes % (A) 9 %; Neutrophils # (A) 10.5 k/uL (1.3-7.7); Neutrophils % (A) 83 %; Platelet Count 230 k/uL (150-450); Poikilocytosis Slight; RBC 4.06 m/uL (4.30-5.90); RDW 19.2 % (11.5-15.5); WBC 12.7 k/uL (3.8-10.6)
[2017-06-01 16:40] LABS: ALT 130 U/L (21-72); AST 95 U/L (17-59); Albumin 3.8 g/dL (3.5-5.0); Alkaline Phosphatase 187 U/L (38-126); Amylase 67 U/L (30-110); Anion Gap 12 mmol/L; Blood Urea Nitrogen 19 mg/dL (9-20); Calcium 9.4 mg/dL (8.4-10.2); Carbon Dioxide 24 mmol/L (22-30); Chloride 101 mmol/L (98-107); Glucose 95 mg/dL (74-99); Lipase 169 U/L (23-300); Partial Thromboplastin Time 23.8 sec (22.0-30.0); Potassium 4.5 mmol/L (3.5-5.1); Prothrombin Time 10.1 sec (9.0-12.0); Sodium 137 mmol/L (137-145); Total Bilirubin 0.8 mg/dL (0.2-1.3); Total Protein 6.7 g/dL (6.3-8.2)
[2017-06-01 16:41] LABS: Appearance,Urine Clear (Clear); Bilirubin,Urine Negative (Negative); Blood,Urine Negative (Negative); Color,Urine Yellow; Glucose,Urine (UA) Negative (Negative); Ketones,Urine Negative (Negative); Leukocyte Esterase,Urine Negative (Negative); Nitrite,Urine Negative (Negative); PH, Urine 6.5 (5.0-8.0); Protein,Urine Trace (Negative); Specific Gravity,Urine 1.028 (1.001-1.035)
--- NOTE | 2017-06-01 17:09 | XR ---
EXAMINATION TYPE: XR chest 2V DATE OF EXAM: 06/01/2017 COMPARISON: 03/18/2017 HISTORY: Pain TECHNIQUE: Frontal and lateral views of the chest are obtained. FINDINGS: There is blunting of left costophrenic angle. Right lung is clear. There is no heart failu re. There is left subclavian catheter or jugular catheter with the tip in the superior vena cava. The bony thorax is intact. There are numerous surgical clips in the upper abdomen. IMPRESSION: Of pleural effusion and pleural diaphragmatic reaction without change compared to last e xam. No heart failure. Normal heart.
[2017-06-01] MEDS ORDERED: LEVOFLOXACIN 750MG-D5W PMX 750 MG in DEXTROSE/WATER 1 150ML.BAG IVPB STA (17:27)
[2017-06-01] MEDS ORDERED: SODIUM CHLORIDE 0.9% 1,000 ML IV ONE (17:28)
[2017-06-01] MEDS ORDERED: VANCOMYCIN IV PER PHARMACY 1 EACH MISC MISCELLANE PRN (17:53)
[2017-06-01] MEDS ORDERED: CEFEPIME 2 GM in SODIUM CHLORIDE 0.9% 50 ML IVPB STA (17:56)
[2017-06-01] MEDS ORDERED: IBUPROFEN 400 MG TAB PO PRN (18:02)
[2017-06-01] MEDS ORDERED: NALOXONE 0.4 MG/ML 1 ML VIAL IV PRN (18:02)
[2017-06-01] MEDS ORDERED: KETOROLAC 30 MG/ML 1 ML VIAL IVP PRN (18:02)
[2017-06-01] MEDS ORDERED: ONDANSETRON 4 MG/2 ML VIAL IVP PRN (18:02)
[2017-06-01] MEDS ORDERED: MORPHINE ORAL SOLN 10 MG/5 ML CUP PO PRN (18:02)
[2017-06-01] MEDS ORDERED: VANCOMYCIN 1,750 MG in SODIUM CHLORIDE 0.9% 250 ML IVPB ONE (19:00)
[2017-06-01] MEDS: SODIUM CHLORIDE 0.9% 1,000 ML IV SCH (20:27)
[2017-06-01] MEDS: ACETAMINOPHEN TAB 325 MG TAB PO PRN (21:45)
--- NOTE | 2017-06-02 01:38 | P.HPIM ---
History of Present Illness H&P Date: 06/01/17 Chief Complaint: Fever This a 66 year old gentleman with history of pancreatic cancer stage IV with metastasis to liver who is currently undergoing chemotherapy every week came to the hospital with complaints of fever. Apparently patient was noted to have fever 103.1 at home. Patient does have history of multiple biliary tract infections and also history of multiple stents placement. Patient was was initially diagnosed with pancreatic cancer in February 2015 and initially had stent placement at [facility] and latter patient had sepsis in October 2015 and was treated at [facility]. Following that patient had multiple stents placement. Patient was previously transferred to [facility] and had ERCP and instead debris was removed. Patient was also on IV antibiotics via PICC line in February 2017 Today patient was found have fever and chills. Patient had last chemotherapy on May 21. Patient denied any abdominal pain. Patient had CT abdomen was done about 4 days ago at his oncologist's office and was told normal active flow. He was informed that his massed were becoming larger and is planning to change the chemotherapy type. His oncologist is Dr. Dominguez. Patient up with fever again today and was brought to the hospital by his who is at bedside. WBC 12.7 AST 95 ALT 130 alk phos 187 Bilirubin 0.8 influenza PCR and heterophile negative Review of Systems Constitutional: Does have fever and chills . No generalized weakness or weight loss. Abdomen: Patient denied nausea vomiting and diarrhea and abdominal pain. Cardiovascular: Patient denies any chest pain or short of breath no palpitations. Respiratory: patient denied any cough is from production. No shortness of breath Neurologic: Patient denied any numbness or tingling headache. Musculoskeletal: Patient denies any complaints of joint swelling or deformity. Skin: Negative Psychiatric: Negative Endocrine: No heat or cold intolerance. No recent weight gain. Genitourinary: No dysuria or hematuria. All other 14 point ROS negative except the above Past Medical History Past Medical History: Cancer, Thyroid Disorder Additional Past Medical History / Comment(s): Testicular cancer, pancreatic cancer (diagnosed February 2015), sepsis, hypothyroid. upper/lower bridges History of Any Multi-Drug Resistant Organisms: None Reported Past Surgical History: Hernia Repair, Tonsillectomy Additional Past Surgical History / Comment(s): 1979 left testicle + lymph nodes removed along spine, right inguinal hernia repair x3 with mesh, hemorrhoidectomy (2011), colonoscopy (Jan 2015), titanium stent in pancreas (2015 @ [place]), restent in 01/2016 ([facility] [place]), smart port. Past Anesthesia/Blood Transfusion Reactions: No Reported Reaction Past Psychological History: No Psychological Hx Reported Smoking Status: Never smoker Past Alcohol Use History: None Reported Past Drug Use History: None Reported - Past Family History Mother Family Medical History: Cancer Additional Family Medical History / Comment(s): Cancer x 3, lived until age 89. Sister(s) Family Medical History: Cancer Additional Family Medical History / Comment(s): Breast cancer. Brother(s) Family Medical History: Cancer Father Family Medical History: Cancer Additional Family Medical History / Comment(s): Colon/bladder cancer x 3, at 94 Medications and Allergies Home Medications Medication Instructions Recorded Confirmed Type Docusate [Colace] 100 mg PO BID 11/19/15 06/01/17 History Fluticasone Nasal [place] [Flonase 2 spray EA NOSTRIL DAILY 05/23/16 06/01/17 History Nasal [place]] Acetaminophen Tab [Tylenol] 650 mg PO Q4-6H PRN 10/04/16 06/01/17 History Omeprazole [PriLOSEC] 20 mg PO DAILY 10/04/16 06/01/17 History Lactose-Reduced Food [Boost] 237 ml PO DAILY 03/01/17 06/01/17 History Ursodiol 300 mg PO BID 03/16/17 06/01/17 History Levothyroxine Sodium [Synthroid] 100 mcg PO DAILY 06/01/17 06/01/17 History Allergies Allergy/AdvReac Type Severity Reaction Status Date / Time No Known Allergies Allergy Verified 06/01/17 14:44 Physical Exam Vitals: Vital Signs Temp Pulse Pulse Pulse Resp BP BP 06/01/17 21:18 99 F 95 17 110/66 06/01/17 20:28 100.1 F H 98 16 120/66 06/01/17 19:53 100.4 F H 113 H 20 108/80 06/01/17 18:00 101.4 F H 106 H 16 109/67 06/01/17 17:19 102.3 F H 108 H 18 124/60 06/01/17 14:45 130 H 06/01/17 13:59 103.1 F H 130 H 20 137/66 Pulse Ox 06/01/17 21:18 96 06/01/17 20:28 100 06/01/17 19:53 98 06/01/17 18:00 98 06/01/17 17:19 98 06/01/17 14:45 06/01/17 13:59 96 Intake and Output 06/01/17 06/01/17 06/01/17 06:59 14:59 22:59 Other: Weight 87.997 kg PHYSICAL EXAMINATION: Patient is lying in the bed comfortably, no acute distress, awake alert and oriented.. HEENT: Normocephalic. Neck is supple. Pupils reactive. Nostrils clear. Oral cavity is moist. Ears reveal no drainage. Neck reveals no JVD, carotid bruits, or thyromegaly. CHEST EXAMINATION: Trachea is central. Symmetrical expansion. Lung lopez clear to auscultation and percussion. CARDIAC: Normal S1, S2 with no gallops. No murmurs ABDOMEN: Soft. Bowel sounds normal. No organomegaly. No abdominal bruits. Extremities: reveal no edema. No clubbing or cyanosis Neurologically awake, alert, oriented x3 with well-coordinated movements. No focal deficits noted Skin: No rash or skin lesions. Psychiatric: Coperative. Nonsuicidal Musculoskeletal: No joint swelling or deformity. Normal range of motion. Results CBC & Chem 7: 06/01/17 16:12 06/01/17 16:12 Labs: Abnormal Lab Results - Last 24 Hours (Table) 06/01/17 06/01/17 06/01/17 Range/Units 16:12 16:12 16:20 WBC 12.7 H (3.8-10.6) k/uL RBC 4.06 L (4.30-5.90) m/uL Hgb 10.9 L (13.0-17.5) gm/dL Hct 33.4 L (39.0-53.0) % RDW 19.2 H (11.5-15.5) % Neutrophils # 10.5 H (1.3-7.7) k/uL Lymphocytes # 0.6 L (1.0-4.8) k/uL Monocytes # 1.2 H (0-1.0) k/uL AST 95 H (17-59) U/L ALT 130 H (21-72) U/L Alkaline Phosphatase 187 H (38-126) U/L Urine Protein Trace H (Negative) Thrombosis Risk Factor Assmnt - DVT/VTE Prophylaxis DVT/VTE Prophylaxis: Pharmacologic Prophylaxis ordered Assessment and Plan Assessment: Fever and chills and abdominal discomfort. suspected biliary stent infection/ cholangitis acute with history of previous cholangitis in February 2017 Pancreatic cancer stage IV with history of multiple stents at [facility] and chemotherapy weekly. Followed by Dr. Dominguez Status post CT abdomen showing increased size of the mass Normocytic anemia of malignancy Elevated liver enzymes Hypothyroidism History of testicular cancer DVT prophylaxis Patient is full code Plan: Patient will be continued on vancomycin and cefepime. Patient was given a dose of vancomycin and cefepime and Levaquin on admission. We will follow blood cultures and repeat liver enzymes tomorrow. Oncology and ID will be consulted. Further recommendations based on the clinical course. Discussed with his at bedside in detail. Time with Patient: Greater than 30
[2017-06-02 02:00] VITALS: BMI 31.3
[2017-06-02] MEDS: SODIUM CHLORIDE 0.9% 1,000 ML IV SCH ×2 (05:57→19:26)
[2017-06-02] MEDS: VANCOMYCIN 1,500 MG in SODIUM CHLORIDE 0.9% 250 ML IVPB SCH ×2 (05:58→19:26)
[2017-06-02] MEDS: LEVOTHYROXINE 100 MCG TAB PO SCH (06:03)
[2017-06-02] MEDS: PANTOPRAZOLE 40 MG TABLET PO SCH (08:08)
[2017-06-02] MEDS: ENOXAPARIN 30 MG/0.3 ML SYRINGE SQ SCH (08:08)
[2017-06-02] MEDS: URSODIOL 300 MG CAP PO SCH ×2 (08:08→22:22)
[2017-06-02] MEDS: DOCUSATE 100 MG CAP PO SCH ×2 (08:08→22:22)
[2017-06-02] MEDS: FLUTICASONE 50MCG/SPRAY NASAL 16GM EA NOSTRIL SCH (08:10)
[2017-06-02 08:49] LABS: ALT 105 U/L (21-72); AST 69 U/L (17-59); Albumin 3.2 g/dL (3.5-5.0); Alkaline Phosphatase 133 U/L (38-126); Anion Gap 11 mmol/L; Blood Urea Nitrogen 15 mg/dL (9-20); Calcium 9.1 mg/dL (8.4-10.2); Carbon Dioxide 24 mmol/L (22-30); Chloride 107 mmol/L (98-107); Glucose 87 mg/dL (74-99); Potassium 4.9 mmol/L (3.5-5.1); Sodium 142 mmol/L (137-145); Total Bilirubin 0.6 mg/dL (0.2-1.3); Total Protein 5.8 g/dL (6.3-8.2)
[2017-06-02] MEDS ORDERED: PANTOPRAZOLE 40 MG/10 ML VIAL IV SCH (09:00)
[2017-06-02 09:51] LABS: Anisocytosis Slight; Basophils % (A) 0 %; Eosinophils # (A) 0.1 k/uL (0-0.7); Eosinophils % (A) 1 %; HGB 9.5 gm/dL (13.0-17.5); Hypochromasia Marked; Lymphocytes # (A) 0.7 k/uL (1.0-4.8); Lymphocytes % (A) 9 %; MCH 26.3 pg (25.0-35.0); MCHC 30.6 g/dL (31.0-37.0); Mean Platelet Volume 7.6; Monocytes # (A) 1.1 k/uL (0-1.0); Monocytes % (A) 15 %; Neutrophils # (A) 5.2 k/uL (1.3-7.7); Neutrophils % (A) 71 %; Platelet Count 151 k/uL (150-450); RBC 3.61 m/uL (4.30-5.90); RDW 19.5 % (11.5-15.5); WBC 7.4 k/uL (3.8-10.6)
[2017-06-02 10:20] LABS: Poikilocytosis (M) Present
--- NOTE | 2017-06-02 18:13 | P.CONS ---
History of Present Illness - Reason for Consult Consult date: 06/02/17 Fever Pancreatic cancer Requesting physician: Addie Phillips - Chief Complaint Fever - History of Present Illness This is a very nice patient of Dr. Lawson who presented with obstructive Jaundice the end of ,went to [facility],his LFT and bilirubin were significantly elevated,MRCP done on 02/23/2015,revealed intra and extra hepatic biliary dilatation, 3 suspicious liver lesions and peripancreatic nodes,MAGNUS done at [facility] revealed a suspicious periampullary mass,biospy was positive for poorly differentiated adenocarcinoma of pancreaticobiliary or upper GI primary. He was transferred to [facility],and on 03/05/2015,he had core biopsy of the liver lesion which was positive for metastatic adenocarcinoma,consistent with pancreaticobiliary or upper GI primary. CA19-9 was 88.6 on 03/01/2015. He initially had external biliary drain then subsequently had a metal internal biliary stent placement and mediport placement. He started mFOLFOX6 on 2015 On 06/13/2015,repeat liver MRI revealed possible progression of his disease and mFOLFOX was discontinued. On 07/02/2015 gemzar/abraxane on 2015. On 08/15/2015,repeat liver MRI revealed stable disease. Abraxane dose was reduced,he continued with same dose gemzar, on 08/27/2015 by 10% because of neuropathy. Repeat liver MRI on 10/11/2015 revealed improvement in liver lesions. Gemzar/ abraxane was held on 11/05/2015 due to fever and progressive neuropathy. He was discharged from hospital on 11/27/2015,was found to have E Coli infection and obstruction of biliary stent,he had ERCP done. On 12/06/2015,repeat CT scan of chest/abdomen/pelvis revealed no evidence of active disease. On 02/07/2016,repeat CT scan of chest/abdomen/pevis revealed no evidence of disease. On 04/17/[address] scan revealed new abdominal nodes and liver lesion. He started onivyde/5FU on 04/28/2016. On 07/03/[address] scan revealed improvement in his metastatic disease. On 08/24/[address] scan revealed further improvement in his disease. He had total of 10 cycles of onivyde/5FU,last was on 09/14/2016,held per patient request to have a break due to fatigue. He had another obstruction of biliary stent in ,he was transferred to [facility] and underwent ERCP,found evidence of sludge in metal stent and plastic stent was inserted,no evidence of malignancy. Repeat CT scan of chest/abdomen/pelvis on 10/23/2016 did not reveal any evidence of recurrence. Repeat CT scan of chest/abdomen/pelvis on 12/11/2016 revealed no evidence of recurrence. On 01/27/2017,LFT went up,he had a repeat CT scan of chest/abdomen/pelvis on 09/2016 which revealed evidence of disease progression in his liver. No evidence of MMR deficiency. He started gemzar on 02/05/2017,he had 3 weeks of treatment,then it was held due to biliary stent blockage and infection,was off treatment all . He resumed gemzar on 03/29/2017. Repeat CT scan on 04/16/2017 revealed relatively stable disease. Repeat CT scan on 05/28/2017 revealed disease progression in the liver and abdominal nodes,gemzar was discontinued. Mr. Blankenship now presents with complaints of fevers. T max at home was 103F. He has a known recent history of recurrent biliary tract infections and multiple stent re-placements. His last treatment with chemotherapy was on May 21. This a 66 year old gentleman with history of pancreatic cancer stage IV with metastasis to liver who is currently undergoing chemotherapy every week came to the hospital with complaints of fever. Apparently patient was noted to have fever 103.1 at home. Patient does have history of multiple biliary tract infections and also history of multiple stents placement. He was seen in office on 05/31/[address] Dominguez discussed the prognosis of his disease and the patient and were very interested in pursuing active therapy. As standard therapy,we may consider trying abraxane/gemzar again,he last treatment with this combination was in 10/2015 and it was held due to neuropathy, Not progression. He also also discussed single agent tarceva as an option. He also discussed sending liquid biopsy for guardant 360 and possible match trials. He discussed the option of referral for phase I clinical trials as well. At this time,they decided to resume abraxane/gemzar combination and proceed with guardant 360 testing for possible trials in the future. He is scheduled to start this next line therapy on 06/07/17 Review of Systems A 14 point review of systems assessed and completed and all negative except HPI Past Medical History Past Medical History: Cancer, Thyroid Disorder Additional Past Medical History / Comment(s): Testicular cancer, pancreatic cancer (diagnosed February 2015), sepsis, hypothyroid. upper/lower bridges History of Any Multi-Drug Resistant Organisms: None Reported Past Surgical History: Hernia Repair, Tonsillectomy Additional Past Surgical History / Comment(s): 1979 left testicle + lymph nodes removed along spine, right inguinal hernia repair x3 with mesh, hemorrhoidectomy (2011), colonoscopy (Jan 2015), titanium stent in pancreas (2015 @ [place]), restent in 01/2016 ([facility] [place]), smart port. Past Anesthesia/Blood Transfusion Reactions: No Reported Reaction Past Psychological History: No Psychological Hx Reported Smoking Status: Never smoker Past Alcohol Use History: None Reported Past Drug Use History: None Reported - Past Family History Mother Family Medical History: Cancer Additional Family Medical History / Comment(s): Cancer x 3, lived until age 89. Sister(s) Family Medical History: Cancer Additional Family Medical History / Comment(s): Breast cancer. Brother(s) Family Medical History: Cancer Father Family Medical History: Cancer Additional Family Medical History / Comment(s): Colon/bladder cancer x 3, at 94 Medications and Allergies Home Medications Medication Instructions Recorded Confirmed Type Docusate [Colace] 100 mg PO BID 11/19/15 06/01/17 History Fluticasone Nasal [place] [Flonase 2 spray EA NOSTRIL DAILY 05/23/16 06/01/17 History Nasal [place]] Acetaminophen Tab [Tylenol] 650 mg PO Q4-6H PRN 10/04/16 06/01/17 History Omeprazole [PriLOSEC] 20 mg PO DAILY 10/04/16 06/01/17 History Lactose-Reduced Food [Boost] 237 ml PO DAILY 03/01/17 06/01/17 History Ursodiol 300 mg PO BID 03/16/17 06/01/17 History Levothyroxine Sodium [Synthroid] 100 mcg PO DAILY 06/01/17 06/01/17 History Allergies Allergy/AdvReac Type Severity Reaction Status Date / Time No Known Allergies Allergy Verified 06/01/17 14:44 Physical Exam Vitals: Vital Signs Temp Pulse Pulse Pulse Pulse Resp BP 06/02/17 15:24 101 H 130 H 74 16 06/02/17 15:00 98.4 F 83 16 06/02/17 08:00 74 16 06/02/17 07:00 98.9 F 74 16 06/02/17 04:33 97 F L 06/02/17 00:47 98.4 F 83 16 06/01/17 21:40 101 H 16 06/01/17 21:18 99 F 95 17 06/01/17 20:28 100.1 F H 98 16 120/66 06/01/17 19:53 100.4 F H 113 H 20 108/80 BP Pulse Ox 06/02/17 15:24 06/02/17 15:00 139/77 97 06/02/17 08:00 06/02/17 07:00 121/70 96 06/02/17 04:33 06/02/17 00:47 108/64 96 06/01/17 21:40 06/01/17 21:18 110/66 96 06/01/17 20:28 100 06/01/17 19:53 98 Intake and Output 06/02/17 06/02/17 06/02/17 06:59 14:59 22:59 Intake Total 2049 Balance 2049 360 Intake: Intake, IV Titration 1550 Amount Cefepime 2 gm In Sodium 100 Chloride 0.9% 50 ml @ 100 mls/hr IVPB ONCE [facility] Rx# :[id number] Sodium Chloride 0.9% 1, 1200 000 ml @ 120 mls/hr IV . Q8H20[facility] Rx#:[id number] Vancomycin 1,500 mg In 250 Sodium Chloride 0.9% 250 ml @ 125 mls/hr IVPB Q12H [facility] Rx#:[id number] Oral 500 360 Other: # Voids 3 4 Weight 87.997 kg - Constitutional General appearance: cooperative, no acute distress - EENT Eyes: EOMI, poor dentition, scleral icterus ENT: NA/AT, normal oropharynx - Neck Neck: normal ROM - Respiratory Respiratory: bilateral: diminished (lower lobes) - Cardiovascular Rhythm: regular Heart sounds: normal: S1, S2 - Gastrointestinal General gastrointestinal: distended, soft - Integumentary Integumentary: jaundiced - Neurologic Neurologic: CNII-XII intact - Musculoskeletal Musculoskeletal: generalized weakness - Psychiatric Psychiatric: A&O x's 3, appropriate affect, intact judgment & insight Results CBC & Chem 7: 06/02/17 07:57 06/02/17 07:57 Labs: Abnormal Lab Results - Last 24 Hours (Table) 06/02/17 06/02/17 Range/Units 07:57 07:57 RBC 3.61 L (4.30-5.90) m/uL Hgb 9.5 L (13.0-17.5) gm/dL Hct 31.0 L (39.0-53.0) % MCHC 30.6 L (31.0-37.0) g/dL RDW 19.5 H (11.5-15.5) % Lymphocytes # 0.7 L (1.0-4.8) k/uL Monocytes # 1.1 H (0-1.0) k/uL AST 69 H (17-59) U/L ALT 105 H (21-72) U/L Alkaline Phosphatase 133 H (38-126) U/L Total Protein 5.8 L (6.3-8.2) g/dL Albumin 3.2 L (3.5-5.0) g/dL Microbiology - Last 24 Hours (Table) 06/01/17 16:20 Urine Culture - Preliminary Urine,Voided Assessment and Plan (1) Pancreatic cancer Current Visit: No Status: Chronic Code(s): C25.9 - MALIGNANT NEOPLASM OF PANCREAS, UNSPECIFIED SNOMED Code(s): 026506939 (2) SIRS (systemic inflammatory response syndrome) Current Visit: No Status: Resolved Priority: High Code(s): R65.10 - SIRS OF NON-INFECTIOUS ORIGIN W/O ACUTE ORGAN DYSFUNCTION SNOMED Code(s): 118088930 Plan: Assessment and Recs: 1. Fever with probable recurrent Biliary Infection - - Continue antibiotics, patient already showing improvements. Follow-up after discharge with Dr. Dominguez 2. Pancreatic cancer with recent progression: - Plan to start new therapy with abraXANE AND GEMZAR ONCE acute infection is resolve. Follow-up as outpatient - Monitor CBC, CMP closely Physican Attestation: I have completed the full history and physical of this patient. I agree with the above dictation, documented as a scribe
[2017-06-02] MEDS: ERTAPENEM 1 GM in SODIUM CHLORIDE 0.9% 50 ML IVPB SCH (22:23)
--- NOTE | 2017-06-02 23:23 | P.PN ---
Subjective Progress Note Date: 06/02/17 Principal diagnosis: Suspected cholangitis This a 66 year old gentleman with history of pancreatic cancer stage IV with metastasis to liver who is currently undergoing chemotherapy every week came to the hospital with complaints of fever. Apparently patient was noted to have fever 103.1 at home. Patient does have history of multiple biliary tract infections and also history of multiple stents placement. Patient was was initially diagnosed with pancreatic cancer in February 2015 and initially had stent placement at [facility] and latter patient had sepsis in October 2015 and was treated at [facility]. Following that patient had multiple stents placement. Patient was previously transferred to [facility] and had ERCP and instead debris was removed. Patient was also on IV antibiotics via PICC line in February 2017 Today patient was found have fever and chills. Patient had last chemotherapy on May 21. Patient denied any abdominal pain. Patient had CT abdomen was done about 4 days ago at his oncologist's office and was told normal active flow. He was informed that his massed were becoming larger and is planning to change the chemotherapy type. His oncologist is Dr. Dominguez. Patient up with fever again today and was brought to the hospital by his who is at bedside. WBC 12.7 AST 95 ALT 130 alk phos 187 Bilirubin 0.8 influenza PCR and heterophile negative 06/02/2017 patient denied any complaints of abdominal pain. No nausea vomiting. Liver enzymes trending down and much improved. Blood cultures showed no growth. Otherwise no acute overnight issues. All other review of systems negative for the above ID and GI recommendations are pending at this time. Active Medications Generic Name Dose Route Start Last Admin Trade Name Freq PRN Reason Stop Dose Admin Acetaminophen 650 mg 06/01/17 18:02 06/01/17 21:45 Tylenol Tab PO 650 mg Q6HR PRN Administration Mild Pain or Fever > 100.5 Docusate Sodium 100 mg 06/02/17 09:00 06/02/17 22:22 Colace PO 100 mg BID [facility] Administration Enoxaparin Sodium 30 mg 06/02/17 09:00 06/02/17 08:08 Lovenox SQ Not Given DAILY [facility] Fluticasone Propionate 2 spray 06/02/17 09:00 06/02/17 08:10 Flonase Nasal [place] EA NOSTRIL Not Given DAILY [facility] Vancomycin HCl 1,500 mg/ 250 mls @ 125 mls/hr 06/02/17 06:00 06/02/17 19:26 Sodium Chloride IVPB 125 mls/hr Q12H [facility] Administration Sodium Chloride 1,000 mls @ 120 mls/hr 06/01/17 18:15 06/02/17 19:26 Saline 0.9% IV 120 mls/hr .Q8H20M [facility] Administration Ertapenem 1 gm/ Sodium 50 mls @ 100 mls/hr 06/02/17 21:15 06/02/17 22:23 Chloride IVPB 100 mls/hr HS [facility]DY Administration Ibuprofen 400 mg 06/01/17 18:02 Motrin PO Q6HR PRN Mild Pain or Fever > 100.5 Ketorolac Tromethamine 30 mg 06/01/17 18:02 Toradol IVP 06/06/17 18:03 Q6HR PRN Moderate Pain Levothyroxine Sodium 100 mcg 06/02/17 06:30 06/02/17 06:03 Synthroid PO 100 mcg DAILY@0630 MAGDY Administration Miscellaneous Information 0 each 06/03/17 05:00 Vancomycin Trough Due MISCELLANE 06/03/17 05:01 DIRECTED ONE Naloxone HCl 0.2 mg 06/01/17 18:02 Narcan IV Q2M PRN Opioid Reversal Ondansetron HCl 4 mg 06/01/17 18:02 Zofran IVP Q8HR PRN Nausea And Vomiting Pantoprazole Sodium 40 mg 06/02/17 07:30 06/02/17 08:08 Protonix PO 40 mg [id number] MAGDY Administration Ursodiol 300 mg 06/02/17 09:00 06/02/17 22:22 Actigall PO 300 mg BID MAGDY Administration Objective - Vital Signs Vital signs: Vital Signs Temp 98.4 F 06/02/17 15:00 Pulse 130 H 06/02/17 15:24 Resp 16 06/02/17 15:24 BP 139/77 06/02/17 15:00 Pulse Ox 97 06/02/17 15:00 Intake & Output 06/01/17 06/02/17 06/02/17 18:59 06:59 18:59 Intake Total 2049 360 Balance 2049 360 Weight 87.997 kg 87.997 kg 87.997 kg Intake: Intake, IV Titration 1550 Amount Cefepime 2 gm In Sodium 100 Chloride 0.9% 50 ml @ 100 mls/hr IVPB ONCE [facility] Rx# :[id number] Sodium Chloride 0.9% 1, 1200 000 ml @ 120 mls/hr IV . Q8H20M [facility] Rx#:[id number] Vancomycin 1,500 mg In 250 Sodium Chloride 0.9% 250 ml @ 125 mls/hr IVPB Q12H [facility] Rx#:[id number] Oral 500 360 Other: # Voids 3 4 - Exam PHYSICAL EXAMINATION: Patient is lying in the bed comfortably, no acute distress, awake alert and oriented.. HEENT: Normocephalic. Neck is supple. Pupils reactive. Nostrils clear. Oral cavity is moist. Ears reveal no drainage. Neck reveals no JVD, carotid bruits, or thyromegaly. CHEST EXAMINATION: Trachea is central. Symmetrical expansion. Lung lopez clear to auscultation and percussion. CARDIAC: Normal S1, S2 with no gallops. No murmurs ABDOMEN: Soft. Bowel sounds normal. No organomegaly. No abdominal bruits. Extremities: reveal no edema. No clubbing or cyanosis Neurologically awake, alert, oriented x3 with well-coordinated movements. No focal deficits noted Skin: No rash or skin lesions. Psychiatric: Coperative. Nonsuicidal Musculoskeletal: No joint swelling or deformity. Normal range of motion. - Labs CBC & Chem 7: 06/02/17 07:57 06/02/17 07:57 Labs: Abnormal Lab Results - Last 24 Hours (Table) 06/02/17 06/02/17 Range/Units 07:57 07:57 RBC 3.61 L (4.30-5.90) m/uL Hgb 9.5 L (13.0-17.5) gm/dL Hct 31.0 L (39.0-53.0) % MCHC 30.6 L (31.0-37.0) g/dL RDW 19.5 H (11.5-15.5) % Lymphocytes # 0.7 L (1.0-4.8) k/uL Monocytes # 1.1 H (0-1.0) k/uL AST 69 H (17-59) U/L ALT 105 H (21-72) U/L Alkaline Phosphatase 133 H (38-126) U/L Total Protein 5.8 L (6.3-8.2) g/dL Albumin 3.2 L (3.5-5.0) g/dL Microbiology - Last 24 Hours (Table) 06/01/17 16:20 Urine Culture - Preliminary Urine,Voided Assessment and Plan Assessment: Fever and chills and abdominal discomfort. suspected biliary stent infection/ cholangitis acute with history of previous cholangitis in February 2017 Pancreatic cancer stage IV with history of multiple stents at [facility] and chemotherapy weekly. Followed by Dr. Dominguez Status post CT abdomen showing increased size of the mass Normocytic anemia of malignancy Elevated liver enzymes Hypothyroidism History of testicular cancer DVT prophylaxis Patient is full code Plan: Patient will be continued on vancomycin and cefepime. Patient was given a dose of vancomycin and cefepime and Levaquin on admission. Liver enzymes are trending down. We will follow blood cultures and repeat liver enzymes tomorrow. Oncology and ID will be consulted. Further recommendations based on the clinical course. Discussed with his at bedside in detail. Time with Patient: Greater than 30
--- NOTE | 2017-06-03 00:24 | P.CONS ---
History of Present Illness - Reason for Consult Consult date: 06/02/17 - Chief Complaint fever - History of Present Illness This is a 66-year-old male who has a past medical history significant for pancreatic cancer currently on chemotherapy under the care of Dr. Dominguez diagnosed in February 2015. He is on Gemzar for 3 weeks and off 1 week. He had a recent hospitalization March 01 through March 04 with obstruction of the biliary tract. He was discharged home on Levaquin for 7 days. As antibiotic therapy completed he again became ill and febrile and presented back to the hospital. He can have evidence of sepsis and was placed on antibiotic therapy. He was having some improvement but then had a sudden increase of his total bilirubin and constantly was transferred to his hepatology Center at [facility] for evaluation of his pancreatic stent. This occurred and there was evidence of some blockage in the stent was recannulated and he's done well since. This is the first time that he is becoming acutely ill since that event. He has received chemotherapy last time was approximately 3 weeks ago. The patient has had a follow-up computed tomography scan that shows evidence of progression of his disease. He was to have some further chemotherapy but has been contacted by his oncologist and is now to be treated with a new chemotherapy once there is evidence of improvement of underlying infection. The patient started feeling better is denying of any troubles of the high-grade fever and chills. His appetite is adequate at this time. Review of Systems Constitutional: Reports chills, Reports fatigue, Reports fever Eyes: denies blurred vision, denies pain Ears, nose, mouth and throat: Denies dental pain, Denies headache, Denies mouth pain, Denies sore throat Cardiovascular: Denies chest pain, Denies edema, Denies leg edema, Denies lightheadedness, Denies shortness of breath, Denies syncope Respiratory: Reports cough, Denies cough with sputum, Denies dyspnea, Denies excessive sputum, Denies hemoptysis, Denies home oxygen, Denies wheezing Gastrointestinal: Denies abdominal pain, Denies diarrhea, Denies nausea, Denies vomiting Genitourinary: Denies dysuria Musculoskeletal: Denies myalgias Integumentary: Denies pruritus, Denies rash Neurological: Denies numbness, Denies weakness Psychiatric: Denies anxiety, Denies depression Endocrine: as had some fatigue and some mild weight loss Past Medical History Past Medical History: Cancer, Thyroid Disorder Additional Past Medical History / Comment(s): Testicular cancer, pancreatic cancer (diagnosed February 2015), sepsis, hypothyroid. upper/lower bridges History of Any Multi-Drug Resistant Organisms: None Reported Past Surgical History: Hernia Repair, Tonsillectomy Additional Past Surgical History / Comment(s): 1979 left testicle + lymph nodes removed along spine, right inguinal hernia repair x3 with mesh, hemorrhoidectomy (2011), colonoscopy (Jan 2015), titanium stent in pancreas (2015 @ [place]), restent in 01/2016 ([facility]), smart port. Past Anesthesia/Blood Transfusion Reactions: No Reported Reaction Past Psychological History: No Psychological Hx Reported Smoking Status: Never smoker Past Alcohol Use History: None Reported Past Drug Use History: None Reported - Past Family History Mother Family Medical History: Cancer Additional Family Medical History / Comment(s): Cancer x 3, lived until age 89. Sister(s) Family Medical History: Cancer Additional Family Medical History / Comment(s): Breast cancer. Brother(s) Family Medical History: Cancer Father Family Medical History: Cancer Additional Family Medical History / Comment(s): Colon/bladder cancer x 3, at 94 Medications and Allergies Home Medications and Allergies Comment(s): Current Medications Acetaminophen (Tylenol Tab) 650 mg PO Q6HR PRN PRN Reason: Mild Pain or Fever > 100.5 Last Admin: 06/01/17 21:45 Dose: 650 mg Docusate Sodium (Colace) 100 mg PO BID [facility] Last Admin: 06/02/17 22:22 Dose: 100 mg Enoxaparin Sodium (Lovenox) 30 mg SQ DAILY [facility] Last Admin: 06/02/17 08:08 Dose: Not Given Fluticasone Propionate (Flonase Nasal [place]) 2 spray EA NOSTRIL DAILY [facility] Last Admin: 06/02/17 08:10 Dose: Not Given Vancomycin HCl 1,500 mg/ (Sodium Chloride) 250 mls @ 125 mls/hr IVPB Q12H [facility] Last Admin: 06/02/17 19:26 Dose: 125 mls/hr Sodium Chloride (Saline 0.9%) 1,000 mls @ 120 mls/hr IV .Q8H20M [facility] Last Admin: 06/02/17 19:26 Dose: 120 mls/hr Ertapenem 1 gm/ Sodium (Chloride) 50 mls @ 100 mls/hr IVPB HS [facility] Last Admin: 06/02/17 22:23 Dose: 100 mls/hr Ibuprofen (Motrin) 400 mg PO Q6HR PRN PRN Reason: Mild Pain or Fever > 100.5 Ketorolac Tromethamine (Toradol) 30 mg IVP Q6HR PRN PRN Reason: Moderate Pain Stop: 06/06/17 18:03 Levothyroxine Sodium (Synthroid) 100 mcg PO DAILY@0630 [facility] Last Admin: 06/02/17 06:03 Dose: 100 mcg Miscellaneous Information (Vancomycin Trough Due) 0 each MISCELLANE DIRECTED ONE Stop: 06/03/17 05:01 Naloxone HCl (Narcan) 0.2 mg IV Q2M PRN PRN Reason: Opioid Reversal Ondansetron HCl (Zofran) 4 mg IVP Q8HR PRN PRN Reason: Nausea And Vomiting Pantoprazole Sodium (Protonix) 40 mg PO AC-BRKFST [facility] Last Admin: 06/02/17 08:08 Dose: 40 mg Ursodiol (Actigall) 300 mg PO BID [facility] Last Admin: 06/02/17 22:22 Dose: 300 mg Home Medications Medication Instructions Recorded Confirmed Type Docusate [Colace] 100 mg PO BID 11/19/15 06/01/17 History Fluticasone Nasal [place] [Flonase 2 spray EA NOSTRIL DAILY 05/23/16 06/01/17 History Nasal [place]] Acetaminophen Tab [Tylenol] 650 mg PO Q4-6H PRN 10/04/16 06/01/17 History Omeprazole [PriLOSEC] 20 mg PO DAILY 10/04/16 06/01/17 History Lactose-Reduced Food [Boost] 237 ml PO DAILY 03/01/17 06/01/17 History Ursodiol 300 mg PO BID 03/16/17 06/01/17 History Levothyroxine Sodium [Synthroid] 100 mcg PO DAILY 06/01/17 06/01/17 History Allergies Allergy/AdvReac Type Severity Reaction Status Date / Time No Known Allergies Allergy Verified 06/01/17 14:44 Physical Exam Vitals: Vital Signs Temp Pulse Pulse Pulse Resp BP Pulse Ox 06/02/17 22:00 98.3 F 77 16 132/84 97 06/02/17 15:24 101 H 130 H 74 16 06/02/17 15:00 98.4 F 83 16 139/77 97 06/02/17 08:00 74 16 06/02/17 07:00 98.9 F 74 16 121/70 96 06/02/17 04:33 97 F L 06/02/17 00:47 98.4 F 83 16 108/64 96 Intake and Output 06/02/17 06/02/17 06/03/17 14:59 22:59 06:59 Intake Total 360 Balance 360 Intake: Oral 360 Other: # Voids 4 Weight 87.997 kg Gen: This is a 66-year-old male. He is sitting up in bed and appears to be in no acute distress. HEENT: Head is atraumatic, normocephalic. Pupils equal, round. Sclerae is not icteric. Conjunctiva pink. Mucous members of the mouth are slightly dry. NECK: Supple. No JVD. No lymphadenopathy. No thyromegaly. LUNGS: Clear to auscultation. No wheezes or rhonchi. No intercostal retractions. HEART: Regular rate and rhythm. No murmur. ABDOMEN: Soft. Bowel sounds are present. No masses. No tenderness. EXTREMITIES: No pedal edema. No calf tenderness. Dorsalis pedis is +2 bilaterally. NEUROLOGICAL: Patient is awake, alert and oriented x3. Cranial nerves 2 through 12 are grossly intact. Results CBC & Chem 7: 06/02/17 07:57 06/02/17 07:57 Labs: Abnormal Lab Results - Last 24 Hours (Table) 06/02/17 06/02/17 Range/Units 07:57 07:57 RBC 3.61 L (4.30-5.90) m/uL Hgb 9.5 L (13.0-17.5) gm/dL Hct 31.0 L (39.0-53.0) % MCHC 30.6 L (31.0-37.0) g/dL RDW 19.5 H (11.5-15.5) % Lymphocytes # 0.7 L (1.0-4.8) k/uL Monocytes # 1.1 H (0-1.0) k/uL AST 69 H (17-59) U/L ALT 105 H (21-72) U/L Alkaline Phosphatase 133 H (38-126) U/L Total Protein 5.8 L (6.3-8.2) g/dL Albumin 3.2 L (3.5-5.0) g/dL Microbiology - Last 24 Hours (Table) 06/01/17 16:20 Urine Culture - Final Urine,Voided 06/01/17 16:12 Blood Culture - Preliminary Blood No Growth after 24 hours Laboratory Results WBC 7.4 k/uL (3.8-10.6) 06/02/17 07:57 RBC 3.61 m/uL (4.30-5.90) L 06/02/17 07:57 Hgb 9.5 gm/dL (13.0-17.5) L 06/02/17 07:57 Hct 31.0 % (39.0-53.0) L 06/02/17 07:57 MCV 86.0 fL (80.0-100.0) 06/02/17 07:57 MCH 26.3 pg (25.0-35.0) 06/02/17 07:57 MCHC 30.6 g/dL (31.0-37.0) L 06/02/17 07:57 RDW 19.5 % (11.5-15.5) H 06/02/17 07:57 Plt Count 151 k/uL (150-450) 06/02/17 07:57 Neutrophils % 71 % 06/02/17 07:57 Lymphocytes % 9 % 06/02/17 07:57 Monocytes % 15 % 06/02/17 07:57 Eosinophils % 1 % 06/02/17 07:57 Basophils % 0 % 06/02/17 07:57 Neutrophils # 5.2 k/uL (1.3-7.7) 06/02/17 07:57 Lymphocytes # 0.7 k/uL (1.0-4.8) L 06/02/17 07:57 Monocytes # 1.1 k/uL (0-1.0) H 06/02/17 07:57 Eosinophils # 0.1 k/uL (0-0.7) 06/02/17 07:57 Basophils # 0.0 k/uL (0-0.2) 06/02/17 07:57 Manual Slide Review Performed 06/02/17 07:57 Hypochromasia Marked 06/02/17 07:57 Poikilocytosis Slight 06/01/17 16:12 Poikilocytosis (manual Present 06/02/17 07:57 Anisocytosis Slight 06/02/17 07:57 PT 10.1 sec (9.0-12.0) 06/01/17 16:12 INR 1.0 (<1.2) 06/01/17 16:12 APTT 23.8 sec (22.0-30.0) 06/01/17 16:12 Sodium 142 mmol/L (137-145) 06/02/17 07:57 Potassium 4.9 mmol/L (3.5-5.1) 06/02/17 07:57 Chloride 107 mmol/L (98-107) 06/02/17 07:57 Carbon Dioxide 24 mmol/L (22-30) 06/02/17 07:57 Anion Gap 11 mmol/L 06/02/17 07:57 BUN 15 mg/dL (9-20) 06/02/17 07:57 Creatinine 0.81 mg/dL (0.66-1.25) 06/02/17 07:57 Est GFR (CKD-EPI)AfAm >90 (>60 ml/min/1.73 sqM) 06/02/17 07:57 Est GFR (CKD-EPI)NonAf >90 (>60 ml/min/1.73 sqM) 06/02/17 07:57 Glucose 87 mg/dL (74-99) 06/02/17 07:57 Plasma Lactic Acid Paddy 1.0 mmol/L (0.7-2.0) 06/01/17 16:12 Calcium 9.1 mg/dL (8.4-10.2) 06/02/17 07:57 Total Bilirubin 0.6 mg/dL (0.2-1.3) 06/02/17 07:57 AST 69 U/L (17-59) H 06/02/17 07:57 ALT 105 U/L (21-72) H 06/02/17 07:57 Alkaline Phosphatase 133 U/L (38-126) H 06/02/17 07:57 Total Protein 5.8 g/dL (6.3-8.2) L 06/02/17 07:57 Albumin 3.2 g/dL (3.5-5.0) L 06/02/17 07:57 Amylase 67 U/L (30-110) 06/01/17 16:12 Lipase 169 U/L (23-300) 06/01/17 16:12 Urine Color Yellow 06/01/17 16:20 Urine Appearance Clear (Clear) 06/01/17 16:20 Urine pH 6.5 (5.0-8.0) 06/01/17 16:20 Ur Specific [place] 1.028 (1.001-1.035) 06/01/17 16:20 Urine Protein Trace (Negative) H 06/01/17 16:20 Urine Glucose (UA) Negative (Negative) 06/01/17 16:20 Urine Ketones Negative (Negative) 06/01/17 16:20 Urine Blood Negative (Negative) 06/01/17 16:20 Urine Nitrite Negative (Negative) 06/01/17 16:20 Urine Bilirubin Negative (Negative) 06/01/17 16:20 Urine Urobilinogen 3.0 mg/dL (<2.0) 06/01/17 16:20 Ur Leukocyte Esterase Negative (Negative) 06/01/17 16:20 Heterophile Antibody Negative (Negative) 06/01/17 16:12 Influenza Type A RNA Not Detected (Not Detectd) 06/01/17 16:12 Influenza Type B (PCR) Not Detected (Not Detectd) 06/01/17 16:12 Microbiology 06/01/17 16:20 Urine,Voided Urine Culture - Final 06/01/17 16:12 Blood Blood Culture - Preliminary No Growth after 24 hours Assessment and Plan (1) Ascending cholangitis Narrative/Plan: 67-year-old male who has a known history of pancreatic cancer has had difficulty with obstruction of his biliary duct and does have a biliary stent in place that was placed at [facility]. During his most recent hospitalization he had some blockage in the stent wasn't manipulated and recannulated has been doing well since. He has received chemotherapy approximately 3 weeks ago. He now develops another bout of high-grade fever chills and some abdominal pain but without significant elevation of his bilirubin. Patient still most likely is having ascending cholangitis at this time given his many difficulties. Antibiotic therapy was altered to ertapenem for coverage of the usual pathogens while cultures are pending. We'll determine our course of outpatient antibiotic therapy once we have more data. Fortunately he is showing some improvement at this time. The difficulty is that his computed tomography scan shows evidence of progression of his disease and oncology is related to the patient that there will be a new course of chemotherapy in the near future once his infection process has improved. The patient does have good outlook and is willing to consider further options. At this time does not have evidence of an elevated bilirubin and there was not significant biliary ductal dilatation and a computed tomography scan and consequently we will be able to care for him at our center. Current Visit: No Status: Acute Code(s): K83.0 - CHOLANGITIS SNOMED Code(s ): 76066864 (2) Anahy-ampullary carcinoma Current Visit: No Status: Acute Code(s): C24.8 - MALIGNANT NEOPLASM OF OVERLAPPING SITES OF BILIARY TRACT SNOMED Code(s): 793821595 (3) Status post chemotherapy, time since less than 4 weeks Current Visit: No Status: Acute Priority: Low Code(s): Z92.21 - PERSONAL HISTORY OF ANTINEOPLASTIC CHEMOTHERAPY SNOMED Code(s): 252820705 (4) Leukocytosis Current Visit: Yes Status: Acute Code(s): D72.829 - ELEVATED WHITE BLOOD CELL COUNT, UNSPECIFIED SNOMED Code(s): 978507977
[2017-06-03] MEDS ORDERED: VANCOMYCIN TROUGH DUE 1 EACH MISC MISCELLANE ONE (05:00)
[2017-06-03 05:19] LABS: Anisocytosis Slight; HCT 31.7 % (39.0-53.0); HGB 9.8 gm/dL (13.0-17.5); Hypochromasia Marked; MCV 87.2 fL (80.0-100.0); Mean Platelet Volume 6.3; Platelet Count 160 k/uL (150-450); Poikilocytosis Slight; RBC 3.64 m/uL (4.30-5.90); WBC 6.4 k/uL (3.8-10.6)
[2017-06-03 05:33] LABS: ALT 90 U/L (21-72); AST 58 U/L (17-59); Albumin 3.2 g/dL (3.5-5.0); Alkaline Phosphatase 128 U/L (38-126); Anion Gap 13 mmol/L; Blood Urea Nitrogen 12 mg/dL (9-20); Calcium 9.1 mg/dL (8.4-10.2); Carbon Dioxide 20 mmol/L (22-30); Chloride 108 mmol/L (98-107); Glucose 89 mg/dL (74-99); Potassium 4.1 mmol/L (3.5-5.1); Sodium 141 mmol/L (137-145); Total Bilirubin 0.4 mg/dL (0.2-1.3); Total Protein 5.9 g/dL (6.3-8.2)
[2017-06-03 05:43] LABS: Basophils # (M) 0.06 k/uL (0-0.2); Eosinophils # (M) 0.13 k/uL (0-0.7); Lymphocytes # (M) 0.96 k/uL (1.0-4.8); Monocytes # (M) 0.83 k/uL (0-1.0); Neutrophils # (M) 4.42 k/uL (1.3-7.7); Neutrophils % (M) 69 %; Nucleated Red Blood Cells 0 /100 WBC (0-0); Total Cells Counted 100
[2017-06-03 05:47] LABS: Reactive Lymphocytes Present
[2017-06-03] MEDS: ACETAMINOPHEN TAB 325 MG TAB PO PRN ×2 (05:52→21:48)
[2017-06-03] MEDS: SODIUM CHLORIDE 0.9% 1,000 ML IV SCH ×4 (05:52→17:57)
[2017-06-03] MEDS: VANCOMYCIN 1,500 MG in SODIUM CHLORIDE 0.9% 250 ML IVPB SCH (05:53)
[2017-06-03] MEDS: LEVOTHYROXINE 100 MCG TAB PO SCH (05:54)
[2017-06-03] MEDS: URSODIOL 300 MG CAP PO SCH ×2 (07:59→20:55)
[2017-06-03] MEDS: PANTOPRAZOLE 40 MG TABLET PO SCH (07:59)
[2017-06-03] MEDS: DOCUSATE 100 MG CAP PO SCH ×2 (08:00→20:56)
[2017-06-03] MEDS: ENOXAPARIN 30 MG/0.3 ML SYRINGE SQ SCH (08:00)
[2017-06-03] MEDS: FLUTICASONE 50MCG/SPRAY NASAL 16GM EA NOSTRIL SCH (08:01)
--- NOTE | 2017-06-03 17:16 | P.PN ---
Subjective Progress Note Date: 06/03/17 Principal diagnosis: Feveredith Spaulding seen in follow-up today. He is overall feeling better. He has no new symptoms, his on phone and many questions and concerns regarding chemotherapy plan with now infection and delay of treatment in regards to how it may affect overall outcomes of the cancer. Objective - Vital Signs Vital signs: Vital Signs Temp 97.7 F 06/03/17 15:07 Pulse 67 06/03/17 16:48 Resp 18 06/03/17 15:07 BP 147/81 06/03/17 15:07 Pulse Ox 97 06/03/17 15:07 Intake & Output 06/02/17 06/03/17 06/03/17 18:59 06:59 18:59 Intake Total 360 4540 1070 Balance 360 4540 1070 Weight 87.997 kg 87.997 kg 87.997 kg Intake: Intake, IV Titration 2510 1070 Amount Ertapenem 1 gm In Sodium 150 100 Chloride 0.9% 50 ml @ 100 mls/hr IVPB HS [facility] Rx#: [id number] Sodium Chloride 0.9% 1, 1860 720 000 ml @ 120 mls/hr IV . Q8H20M [facility] Rx#:[id number] Vancomycin 1,500 mg In 500 Sodium Chloride 0.9% 250 ml @ 125 mls/hr IVPB Q12H [facility] Rx#:[id number] Vancomycin 1,750 mg In 250 Sodium Chloride 0.9% 250 ml @ 125 mls/hr IVPB Q12H [facility] Rx#:[id number] Oral 360 2030 Other: Voiding Method Toilet # Voids 4 1 1 - Constitutional General appearance: Present: average body habitus, cooperative, no acute distress - EENT Eyes: Present: EOMI, PERRLA, dentition normal ENT: Present: NA/AT, normal oropharynx - Neck Details: Supple, Trachea midline Neck: Present: normal ROM - Respiratory Respiratory: bilateral: CTA (No increased effort) - Cardiovascular Rhythm: regular Heart sounds: normal: S1, S2 - Gastrointestinal General gastrointestinal: Present: distended, normal bowel sounds, soft - Integumentary Integumentary: Present: normal - Neurologic Neurologic Comment(s): No focal Defects Neurologic: Present: CNII-XII intact - Musculoskeletal Musculoskeletal: Present: gait normal, generalized weakness, strength equal bilaterally - Psychiatric Psychiatric: Present: A&O x's 3, appropriate affect, intact judgment & insight - Labs CBC & Chem 7: 06/03/17 05:04 06/03/17 05:04 Labs: Abnormal Lab Results - Last 24 Hours (Table) 06/03/17 06/03/17 Range/Units 05:04 05:04 RBC 3.64 L (4.30-5.90) m/uL Hgb 9.8 L (13.0-17.5) gm/dL Hct 31.7 L (39.0-53.0) % RDW 19.0 H (11.5-15.5) % Lymphocytes # (Manual) 0.96 L (1.0-4.8) k/uL Chloride 108 H (98-107) mmol/L Carbon Dioxide 20 L (22-30) mmol/L ALT 90 H (21-72) U/L Alkaline Phosphatase 128 H (38-126) U/L Total Protein 5.9 L (6.3-8.2) g/dL Albumin 3.2 L (3.5-5.0) g/dL Microbiology - Last 24 Hours (Table) 06/01/17 16:20 Urine Culture - Final Urine,Voided 06/01/17 16:12 Blood Culture - Preliminary Blood No Growth after 24 hours Assessment and Plan (1) Pancreatic cancer Current Visit: No Status: Chronic Code(s): C25.9 - MALIGNANT NEOPLASM OF PANCREAS, UNSPECIFIED SNOMED Code(s): 950067671 (2) SIRS (systemic inflammatory response syndrome) Current Visit: No Status: Resolved Priority: High Code(s): R65.10 - SIRS OF NON-INFECTIOUS ORIGIN W/O ACUTE ORGAN DYSFUNCTION SNOMED Code(s): 858631256 Plan: Assessment and Recs: 1. Fever with probable recurrent Biliary Infection - - Continue antibiotics, patient already showing improvements. Follow-up after discharge with Dr. Dominguez 2. Pancreatic cancer with recent progression: - Plan to start new therapy with abraXANE AND GEMZAR ONCE acute infection is resolve. Follow-up as outpatient - Monitor CBC, CMP closely 3. Normocytic Anemia - Multifactoral malignancy related, Previous treatment with chemotherapy - Monitor CBC - No intervention needed at this time Long discussion counseling and coordinating care with patient and today. Questions related to treatment goals, palliative measures, new treatment options and coordination with chemotherapy after completion of antibiotics per Dr. Spivey direction. All questions answered and appointments and status of further Gaur[place]ian 360 given to patient and . We have rescheduled chemotherapy to restart on 06/14/17 to allow sufficient time for resolution of infection and completion of antibiotics. May change if need for antibiotics exists longer. Physican Attestation: I have completed the full history and physical of this patient. I agree with the above dictation, documented as a scribe Time with Patient: Greater than 30
[2017-06-03] MEDS: VANCOMYCIN 1,750 MG in SODIUM CHLORIDE 0.9% 250 ML IVPB SCH (17:58)
[2017-06-03] MEDS: ERTAPENEM 1 GM in SODIUM CHLORIDE 0.9% 50 ML IVPB SCH (20:54)
--- NOTE | 2017-06-03 23:33 | P.PN ---
Subjective Progress Note Date: 06/03/17 Principal diagnosis: Suspected cholangitis This a 66 year old gentleman with history of pancreatic cancer stage IV with metastasis to liver who is currently undergoing chemotherapy every week came to the hospital with complaints of fever. Apparently patient was noted to have fever 103.1 at home. Patient does have history of multiple biliary tract infections and also history of multiple stents placement. Patient was was initially diagnosed with pancreatic cancer in February 2015 and initially had stent placement at [facility] and latter patient had sepsis in October 2015 and was treated at [facility]. Following that patient had multiple stents placement. Patient was previously transferred to [facility] and had ERCP and instead debris was removed. Patient was also on IV antibiotics via PICC line in February 2017 Today patient was found have fever and chills. Patient had last chemotherapy on May 21. Patient denied any abdominal pain. Patient had CT abdomen was done about 4 days ago at his oncologist's office and was told normal active flow. He was informed that his massed were becoming larger and is planning to change the chemotherapy type. His oncologist is Dr. Dominguez. Patient up with fever again today and was brought to the hospital by his who is at bedside. WBC 12.7 AST 95 ALT 130 alk phos 187 Bilirubin 0.8 influenza PCR and heterophile negative 06/02/2017 patient denied any complaints of abdominal pain. No nausea vomiting. Liver enzymes trending down and much improved. Blood cultures showed no growth. Otherwise no acute overnight issues. All other review of systems negative for the above ID and GI recommendations are pending at this time. 06/03/2017 Patient denied any complaints of abdominal pain. No nausea vomiting. Ambulating in the hallway. No fever no chills. Liver enzymes further improved. Patient is being continued on antibiotics and ID is following. Active Medications Generic Name Dose Route Start Last Admin Trade Name Freq PRN Reason Stop Dose Admin Acetaminophen 650 mg 06/01/17 18:02 06/01/17 21:45 Tylenol Tab PO 650 mg Q6HR PRN Administration Mild Pain or Fever > 100.5 Docusate Sodium 100 mg 06/02/17 09:00 06/02/17 22:22 Colace PO 100 mg BID MAGDY Administration Enoxaparin Sodium 30 mg 06/02/17 09:00 06/02/17 08:08 Lovenox SQ Not Given DAILY MAGDY Fluticasone Propionate 2 spray 06/02/17 09:00 06/02/17 08:10 Flonase Nasal [place] EA NOSTRIL Not Given DAILY MAGDY Vancomycin HCl 1,500 mg/ 250 mls @ 125 mls/hr 06/02/17 06:00 06/02/17 19:26 Sodium Chloride IVPB 125 mls/hr Q12H MAGDY Administration Sodium Chloride 1,000 mls @ 120 mls/hr 06/01/17 18:15 06/02/17 19:26 Saline 0.9% IV 120 mls/hr .Q8H20M MAGDY Administration Ertapenem 1 gm/ Sodium 50 mls @ 100 mls/hr 06/02/17 21:15 06/02/17 22:23 Chloride IVPB 100 mls/hr HS MAGDY Administration Ibuprofen 400 mg 06/01/17 18:02 Motrin PO Q6HR PRN Mild Pain or Fever > 100.5 Ketorolac Tromethamine 30 mg 06/01/17 18:02 Toradol IVP 06/06/17 18:03 Q6HR PRN Moderate Pain Levothyroxine Sodium 100 mcg 06/02/17 06:30 06/02/17 06:03 Synthroid PO 100 mcg DAILY@0630 MAGDY Administration Miscellaneous Information 0 each 06/03/17 05:00 Vancomycin Trough Due MISCELLANE 06/03/17 05:01 DIRECTED ONE Naloxone HCl 0.2 mg 06/01/17 18:02 Narcan IV Q2M PRN Opioid Reversal Ondansetron HCl 4 mg 06/01/17 18:02 Zofran IVP Q8HR PRN Nausea And Vomiting Pantoprazole Sodium 40 mg 06/02/17 07:30 06/02/17 08:08 Protonix PO 40 mg AC-[id number] MAGDY Administration Ursodiol 300 mg 06/02/17 09:00 06/02/17 22:22 Actigall PO 300 mg BID MAGDY Administration Objective - Vital Signs Vital signs: Vital Signs Temp 97.7 F 06/03/17 15:07 Pulse 67 06/03/17 16:48 Resp 18 06/03/17 15:07 BP 147/81 06/03/17 15:07 Pulse Ox 97 06/03/17 15:07 Intake & Output 06/02/17 06/03/17 06/03/17 18:59 06:59 18:59 Intake Total 360 4540 1070 Balance 360 4540 1070 Weight 87.997 kg 87.997 kg 87.997 kg Intake: Intake, IV Titration 2510 1070 Amount Ertapenem 1 gm In Sodium 150 100 Chloride 0.9% 50 ml @ 100 mls/hr IVPB HS [facility] Rx#: [id number] Sodium Chloride 0.9% 1, 1860 720 000 ml @ 120 mls/hr IV . Q8H20M [facility] Rx#:[id number] Vancomycin 1,500 mg In 500 Sodium Chloride 0.9% 250 ml @ 125 mls/hr IVPB Q12H [facility] Rx#:[id number] Vancomycin 1,750 mg In 250 Sodium Chloride 0.9% 250 ml @ 125 mls/hr IVPB Q12H [facility] Rx#:[id number] Oral 360 2030 Other: Voiding Method Toilet # Voids 4 1 1 - Exam PHYSICAL EXAMINATION: Patient is lying in the bed comfortably, no acute distress, awake alert and oriented.. HEENT: Normocephalic. Neck is supple. Pupils reactive. Nostrils clear. Oral cavity is moist. Ears reveal no drainage. Neck reveals no JVD, carotid bruits, or thyromegaly. CHEST EXAMINATION: Trachea is central. Symmetrical expansion. Lung lopez clear to auscultation and percussion. CARDIAC: Normal S1, S2 with no gallops. No murmurs ABDOMEN: Soft. Bowel sounds normal. No organomegaly. No abdominal bruits. Extremities: reveal no edema. No clubbing or cyanosis Neurologically awake, alert, oriented x3 with well-coordinated movements. No focal deficits noted Skin: No rash or skin lesions. Psychiatric: Coperative. Nonsuicidal Musculoskeletal: No joint swelling or deformity. Normal range of motion. - Labs CBC & Chem 7: 06/03/17 05:04 06/03/17 05:04 Labs: Abnormal Lab Results - Last 24 Hours (Table) 06/03/17 06/03/17 Range/Units 05:04 05:04 RBC 3.64 L (4.30-5.90) m/uL Hgb 9.8 L (13.0-17.5) gm/dL Hct 31.7 L (39.0-53.0) % RDW 19.0 H (11.5-15.5) % Lymphocytes # (Manual) 0.96 L (1.0-4.8) k/uL Chloride 108 H (98-107) mmol/L Carbon Dioxide 20 L (22-30) mmol/L ALT 90 H (21-72) U/L Alkaline Phosphatase 128 H (38-126) U/L Total Protein 5.9 L (6.3-8.2) g/dL Albumin 3.2 L (3.5-5.0) g/dL Microbiology - Last 24 Hours (Table) 06/01/17 16:20 Urine Culture - Final Urine,Voided 06/01/17 16:12 Blood Culture - Preliminary Blood No Growth after 24 hours Assessment and Plan Assessment: Fever and chills and abdominal discomfort. suspected biliary stent infection/ ascending cholangitis with history of previous cholangitis in February 2017 Pancreatic cancer stage IV with history of multiple stents at [facility] and chemotherapy weekly. Followed by Dr. Dominguez Status post CT abdomen showing increased size of the mass Normocytic anemia of malignancy Elevated liver enzymes Hypothyroidism History of testicular cancer DVT prophylaxis Patient is full code Plan: Patient will be continued on vancomycin and cefepime. Patient was given a dose of vancomycin and cefepime and Levaquin on admission. Liver enzymes are trending down. We will follow blood cultures and repeat liver enzymes tomorrow. Oncology and ID will be consulted. Further recommendations based on the clinical course. Discussed with his at bedside in detail. Time with Patient: Greater than 30
--- NOTE | 2017-06-03 23:43 | P.PN ---
Subjective Progress Note Date: 06/03/17 Principal diagnosis: Pancreatic cancer in fever This is a 66-year-old male who has a past medical history significant for pancreatic cancer currently on chemotherapy under the care of Dr. Dominguez diagnosed in February 2015. He is on Gemzar for 3 weeks and off 1 week. He had a recent hospitalization March 01 through March 04 with obstruction of the biliary tract. He was discharged home on Levaquin for 7 days. As antibiotic therapy completed he again became ill and febrile and presented back to the hospital. He can have evidence of sepsis and was placed on antibiotic therapy. He was having some improvement but then had a sudden increase of his total bilirubin and constantly was transferred to his hepatology Center at [facility] for evaluation of his pancreatic stent. This occurred and there was evidence of some blockage in the stent was recannulated and he's done well since. This is the first time that he is becoming acutely ill since that event. He has received chemotherapy last time was approximately 3 weeks ago. The patient has had a follow-up computed tomography scan that shows evidence of progression of his disease. He was to have some further chemotherapy but has been contacted by his oncologist and is now to be treated with a new chemotherapy once there is evidence of improvement of underlying infection. The patient started feeling better is denying of any troubles of the high-grade fever and chills. His appetite is adequate at this time. 06/03/2017 but the patient be feeling better. Fevers improved. No abdominal pain. Eating well without significant pain. No jaundice. Temperature is improved no chills or rigors. Objective - Vital Signs Vital signs: Vital Signs Temp 98.5 F 06/03/17 22:30 Pulse 80 06/03/17 22:30 Resp 16 06/03/17 22:30 BP 134/80 06/03/17 22:30 Pulse Ox 96 06/03/17 22:30 Intake & Output 06/03/17 06/03/17 06/04/17 06:59 18:59 06:59 Intake Total 4540 1070 410 Balance 4540 1070 410 Weight 87.997 kg 87.997 kg Intake: Intake, IV Titration 2510 1070 410 Amount Ertapenem 1 gm In Sodium 150 100 50 Chloride 0.9% 50 ml @ 100 mls/hr IVPB [facility] Rx#: [id number] Sodium Chloride 0.9% 1, 1860 720 360 000 ml @ 120 mls/hr IV . Q8H20M [facility] Rx#:[id number] Vancomycin 1,500 mg In 500 Sodium Chloride 0.9% 250 ml @ 125 mls/hr IVPB Q12H [facility] Rx#:[id number] Vancomycin 1,750 mg In 250 Sodium Chloride 0.9% 250 ml @ 125 mls/hr IVPB Q12H [facility] Rx#:[id number] Oral 2030 Other: Voiding Method Toilet # Voids 1 1 - Exam Gen: This is a 66-year-old male. He is sitting up in bed and appears to be in no acute distress. HEENT: Head is atraumatic, normocephalic. Pupils equal, round. Sclerae is not icteric. Conjunctiva pink. Mucous members of the mouth are slightly dry. NECK: Supple. No JVD. No lymphadenopathy. No thyromegaly. LUNGS: Clear to auscultation. No wheezes or rhonchi. No intercostal retractions. HEART: Regular rate and rhythm. No murmur. ABDOMEN: Soft. Bowel sounds are present. No masses. No tenderness. EXTREMITIES: No pedal edema. No calf tenderness. Dorsalis pedis is +2 bilaterally. NEUROLOGICAL: Patient is awake, alert and oriented x3. Cranial nerves 2 through 12 are grossly intact. - Labs CBC & Chem 7: 06/03/17 05:04 06/03/17 05:04 Labs: Abnormal Lab Results - Last 24 Hours (Table) 06/03/17 06/03/17 Range/Units 05:04 05:04 RBC 3.64 L (4.30-5.90) m/uL Hgb 9.8 L (13.0-17.5) gm/dL Hct 31.7 L (39.0-53.0) % RDW 19.0 H (11.5-15.5) % Lymphocytes # (Manual) 0.96 L (1.0-4.8) k/uL Chloride 108 H (98-107) mmol/L Carbon Dioxide 20 L (22-30) mmol/L ALT 90 H (21-72) U/L Alkaline Phosphatase 128 H (38-126) U/L Total Protein 5.9 L (6.3-8.2) g/dL Albumin 3.2 L (3.5-5.0) g/dL Microbiology - Last 24 Hours (Table) 06/01/17 16:12 Blood Culture - Preliminary Blood No Growth after 48 hours 06/01/17 16:20 Urine Culture - Final Urine,Voided Laboratory Results WBC 6.4 k/uL (3.8-10.6) 06/03/17 05:04 RBC 3.64 m/uL (4.30-5.90) L 06/03/17 05:04 Hgb 9.8 gm/dL (13.0-17.5) L 06/03/17 05:04 Hct 31.7 % (39.0-53.0) L 06/03/17 05:04 MCV 87.2 fL (80.0-100.0) 06/03/17 05:04 MCH 27.0 pg (25.0-35.0) 06/03/17 05:04 MCHC 31.0 g/dL (31.0-37.0) 06/03/17 05:04 RDW 19.0 % (11.5-15.5) H 06/03/17 05:04 Plt Count 160 k/uL (150-450) 06/03/17 05:04 Neutrophils % 71 % 06/02/17 07:57 Neutrophils % (Manual) 69 % 06/03/17 05:04 Lymphocytes % 9 % 06/02/17 07:57 Lymphocytes % (Manual) 15 % 06/03/17 05:04 Monocytes % 15 % 06/02/17 07:57 Monocytes % (Manual) 13 % 06/03/17 05:04 Eosinophils % 1 % 06/02/17 07:57 Eosinophils % (Manual) 2 % 06/03/17 05:04 Basophils % 0 % 06/02/17 07:57 Basophils % (Manual) 1 % 06/03/17 05:04 Neutrophils # 5.2 k/uL (1.3-7.7) 06/02/17 07:57 Neutrophils # (Manual) 4.42 k/uL (1.3-7.7) 06/03/17 05:04 Lymphocytes # 0.7 k/uL (1.0-4.8) L 06/02/17 07:57 Lymphocytes # (Manual) 0.96 k/uL (1.0-4.8) L 06/03/17 05:04 Monocytes # 1.1 k/uL (0-1.0) H 06/02/17 07:57 Monocytes # (Manual) 0.83 k/uL (0-1.0) 06/03/17 05:04 Eosinophils # 0.1 k/uL (0-0.7) 06/02/17 07:57 Eosinophils # (Manual) 0.13 k/uL (0-0.7) 06/03/17 05:04 Basophils # 0.0 k/uL (0-0.2) 06/02/17 07:57 Basophils # (Manual) 0.06 k/uL (0-0.2) 06/03/17 05:04 Nucleated RBCs 0 /100 WBC (0-0) 06/03/17 05:04 Manual Slide Review Performed 06/03/17 05:04 Reactive Lymphocytes Present 06/03/17 05:04 Hypochromasia Marked 06/03/17 05:04 Poikilocytosis Slight 06/03/17 05:04 Poikilocytosis (manual Present 06/02/17 07:57 Anisocytosis Slight 06/03/17 05:04 PT 10.1 sec (9.0-12.0) 06/01/17 16:12 INR 1.0 (<1.2) 06/01/17 16:12 APTT 23.8 sec (22.0-30.0) 06/01/17 16:12 Sodium 141 mmol/L (137-145) 06/03/17 05:04 Potassium 4.1 mmol/L (3.5-5.1) 06/03/17 05:04 Chloride 108 mmol/L (98-107) H 06/03/17 05:04 Carbon Dioxide 20 mmol/L (22-30) L 06/03/17 05:04 Anion Gap 13 mmol/L 06/03/17 05:04 BUN 12 mg/dL (9-20) 06/03/17 05:04 Creatinine 0.80 mg/dL (0.66-1.25) 06/03/17 05:04 Est GFR (CKD-EPI)AfAm >90 (>60 ml/min/1.73 sqM) 06/03/17 05:04 Est GFR (CKD-EPI)NonAf >90 (>60 ml/min/1.73 sqM) 06/03/17 05:04 Glucose 89 mg/dL (74-99) 06/03/17 05:04 Plasma Lactic Acid Paddy 1.0 mmol/L (0.7-2.0) 06/01/17 16:12 Calcium 9.1 mg/dL (8.4-10.2) 06/03/17 05:04 Total Bilirubin 0.4 mg/dL (0.2-1.3) 06/03/17 05:04 AST 58 U/L (17-59) 06/03/17 05:04 ALT 90 U/L (21-72) H 06/03/17 05:04 Alkaline Phosphatase 128 U/L (38-126) H 06/03/17 05:04 Total Protein 5.9 g/dL (6.3-8.2) L 06/03/17 05:04 Albumin 3.2 g/dL (3.5-5.0) L 06/03/17 05:04 Amylase 67 U/L (30-110) 06/01/17 16:12 Lipase 169 U/L (23-300) 06/01/17 16:12 Urine Color Yellow 06/01/17 16:20 Urine Appearance Clear (Clear) 06/01/17 16:20 Urine pH 6.5 (5.0-8.0) 06/01/17 16:20 Ur Specific Goodman 1.028 (1.001-1.035) 06/01/17 16:20 Urine Protein Trace (Negative) H 06/01/17 16:20 Urine Glucose (UA) Negative (Negative) 06/01/17 16:20 Urine Ketones Negative (Negative) 06/01/17 16:20 Urine Blood Negative (Negative) 06/01/17 16:20 Urine Nitrite Negative (Negative) 06/01/17 16:20 Urine Bilirubin Negative (Negative) 06/01/17 16:20 Urine Urobilinogen 3.0 mg/dL (<2.0) 06/01/17 16:20 Ur Leukocyte Esterase Negative (Negative) 06/01/17 16:20 Vancomycin Trough 14.2 ug/mL 06/03/17 05:04 Heterophile Antibody Negative (Negative) 06/01/17 16:12 Influenza Type A RNA Not Detected (Not Detectd) 06/01/17 16:12 Influenza Type B (PCR) Not Detected (Not Detectd) 06/01/17 16:12 Microbiology 06/01/17 16:12 Blood Blood Culture - Preliminary No Growth after 48 hours 06/01/17 16:20 Urine,Voided Urine Culture - Final Assessment and Plan (1) Ascending cholangitis Narrative/Plan: 67-year-old male who has a known history of pancreatic cancer has had difficulty with obstruction of his biliary duct and does have a biliary stent in place that was placed at [facility]. During his most recent hospitalization he had some blockage in the stent wasn't manipulated and recannulated has been doing well since. He has received chemotherapy approximately 3 weeks ago. He now develops another bout of high-grade fever chills and some abdominal pain but without significant elevation of his bilirubin. Patient still most likely is having ascending cholangitis at this time given his many difficulties. Antibiotic therapy was altered to ertapenem for coverage of the usual pathogens while cultures are pending. We'll determine our course of outpatient antibiotic therapy once we have more data. Fortunately he is showing some improvement at this time. The difficulty is that his computed tomography scan shows evidence of progression of his disease and oncology is related to the patient that there will be a new course of chemotherapy in the near future once his infection process has improved. The patient does have good outlook and is willing to consider further options. At this time does not have evidence of an elevated bilirubin and there was not significant biliary ductal dilatation and a computed tomography scan and consequently we will be able to care for him at our center. 06/03/2017 reveals the patient to be further improved. Fevers resolved. No evidence of any new changes. Abdominal pain is improved. Eating well. No jaundice at this time. We have evidence of negative blood cultures. Patient is showing marked improvement and likely be discharged home on oral antimicrobial therapy when he is ready for discharge to home. 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
[2017-06-04] MEDS: SODIUM CHLORIDE 0.9% 1,000 ML IV SCH ×4 (05:50→17:53)
[2017-06-04] MEDS: VANCOMYCIN 1,750 MG in SODIUM CHLORIDE 0.9% 250 ML IVPB SCH ×2 (05:50→17:52)
[2017-06-04] MEDS: LEVOTHYROXINE 100 MCG TAB PO SCH (05:50)
[2017-06-04] MEDS: ACETAMINOPHEN TAB 325 MG TAB PO PRN (05:53)
[2017-06-04 08:00] LABS: Anion Gap 7 mmol/L; Blood Urea Nitrogen 11 mg/dL (9-20); Calcium 8.6 mg/dL (8.4-10.2); Carbon Dioxide 24 mmol/L (22-30); Chloride 108 mmol/L (98-107); Glucose 87 mg/dL (74-99); Potassium 4.1 mmol/L (3.5-5.1); Sodium 139 mmol/L (137-145)
[2017-06-04] MEDS: PANTOPRAZOLE 40 MG TABLET PO SCH (08:02)
[2017-06-04] MEDS: URSODIOL 300 MG CAP PO SCH ×2 (08:02→20:23)
[2017-06-04] MEDS: ENOXAPARIN 30 MG/0.3 ML SYRINGE SQ SCH (08:02)
[2017-06-04] MEDS: FLUTICASONE 50MCG/SPRAY NASAL 16GM EA NOSTRIL SCH (08:02)
[2017-06-04] MEDS: DOCUSATE 100 MG CAP PO SCH ×2 (08:02→20:23)
[2017-06-04] MEDS: guaiFENesin-DM 600/30MG 1 EACH TAB.ER.12H PO SCH ×2 (08:55→20:22)
[2017-06-04 10:51] LABS: ALT 71 U/L (21-72); AST 37 U/L (17-59); Albumin 2.7 g/dL (3.5-5.0); Alkaline Phosphatase 111 U/L (38-126); Total Bilirubin 0.2 mg/dL (0.2-1.3); Total Protein 5.2 g/dL (6.3-8.2)
[2017-06-04 10:55] LABS: Anisocytosis Slight; HCT 27.6 % (39.0-53.0); HGB 8.7 gm/dL (13.0-17.5); Hypochromasia Moderate; MCH 26.5 pg (25.0-35.0); MCHC 31.6 g/dL (31.0-37.0); MCV 83.9 fL (80.0-100.0); Platelet Count 183 k/uL (150-450); Poikilocytosis Slight; RBC 3.29 m/uL (4.30-5.90); RDW 19.1 % (11.5-15.5); WBC 4.3 k/uL (3.8-10.6)
[2017-06-04 11:56] LABS: Eosinophils # (M) 0.09 k/uL (0-0.7); Lymphocytes # (M) 0.99 k/uL (1.0-4.8); Monocytes # (M) 0.26 k/uL (0-1.0); Neutrophils # (M) 2.97 k/uL (1.3-7.7); Neutrophils % (M) 69 %; Nucleated Red Blood Cells 0 /100 WBC (0-0); Total Cells Counted 100
--- NOTE | 2017-06-04 17:19 | P.PN ---
Subjective Progress Note Date: 06/04/17 Principal diagnosis: Fevers Jasson seen in follow-up today, at bedside, he is doing good, no acute events. Objective - Vital Signs Vital signs: Vital Signs Temp 98.1 F 06/04/17 15:00 Pulse 130 H 06/04/17 15:36 Resp 16 06/04/17 15:36 BP 139/86 06/04/17 15:00 Pulse Ox 98 06/04/17 15:00 Intake & Output 06/03/17 06/04/17 06/04/17 18:59 06:59 18:59 Intake Total 1070 1370 2000 Balance 1070 1370 1999 Weight 87.997 kg 87.997 kg Intake: Intake, IV Titration 1070 1370 1550 Amount Ertapenem 1 gm In Sodium 100 50 100 Chloride 0.9% 50 ml @ 100 mls/hr IVPB HS [facility] Rx#: [id number] Sodium Chloride 0.9% 1, 720 1320 1200 000 ml @ 120 mls/hr IV . Q8H20M [facility] Rx#:[id number] Vancomycin 1,750 mg In 250 250 Sodium Chloride 0.9% 250 ml @ 125 mls/hr IVPB Q12H [facility] Rx#:[id number] Oral 450 Other: Voiding Method Toilet Toilet Toilet # Voids 1 4 # Bowel Movements 2 - Constitutional General appearance: Present: average body habitus, no acute distress - EENT Eyes: Present: EOMI, PERRLA ENT: Present: NA/AT, normal oropharynx - Neck Neck: Present: normal ROM - Respiratory Respiratory: bilateral: CTA (No increased effort) - Cardiovascular Rhythm: regular Heart sounds: normal: S1, S2 - Gastrointestinal General gastrointestinal: Present: normal bowel sounds, soft - Integumentary Integumentary: Present: normal - Neurologic Neurologic: Present: CNII-XII intact - Musculoskeletal Musculoskeletal: Present: gait normal, generalized weakness, strength equal bilaterally - Psychiatric Psychiatric: Present: A&O x's 3, appropriate affect, intact judgment & insight - Labs CBC & Chem 7: 06/04/17 07:17 06/04/17 07:17 Labs: Abnormal Lab Results - Last 24 Hours (Table) 06/04/17 06/04/17 Range/Units 07:17 07:17 RBC 3.29 L (4.30-5.90) m/uL Hgb 8.7 L (13.0-17.5) gm/dL Hct 27.6 L (39.0-53.0) % RDW 19.1 H (11.5-15.5) % Lymphocytes # (Manual) 0.99 L (1.0-4.8) k/uL Chloride 108 H (98-107) mmol/L Total Protein 5.2 L (6.3-8.2) g/dL Albumin 2.7 L (3.5-5.0) g/dL Microbiology - Last 24 Hours (Table) 06/01/17 16:12 Blood Culture - Preliminary Blood No Growth after 48 hours Assessment and Plan (1) Pancreatic cancer Current Visit: No Status: Chronic Code(s): C25.9 - MALIGNANT NEOPLASM OF PANCREAS, UNSPECIFIED SNOMED Code(s): 912983122 (2) SIRS (systemic inflammatory response syndrome) Current Visit: No Status: Resolved Priority: High Code(s): R65.10 - SIRS OF NON-INFECTIOUS ORIGIN W/O ACUTE ORGAN DYSFUNCTION SNOMED Code(s): 734483102 Plan: Assessment and Recs: 1. Fever with probable recurrent Biliary Infection - - Continue antibiotics, patient already showing improvements. Follow-up after discharge with Dr. Dominguez 2. Pancreatic cancer with recent progression: - Plan to start new therapy with abraXANE AND GEMZAR ONCE acute infection is resolve. Follow-up as outpatient - Monitor CBC, CMP closely 3. Normocytic Anemia - Multifactoral malignancy related, Previous treatment with chemotherapy - Monitor CBC - No intervention needed at this time Long discussion counseling and coordinating care with patient and and patient this evening today. Questions related to new treatment options and coordination with chemotherapy after completion of antibiotics per Dr. Spivey direction. All questions answered and appointments and status of further [place] [address] given to patient and . We have rescheduled chemotherapy to restart on 06/14/17 to allow sufficient time for resolution of infection and completion of antibiotics. May change if need for antibiotics exists longer. Physican Attestation: I have completed the full history and physical of this patient. I agree with the above dictation, documented as a scribe
[2017-06-04] MEDS: ERTAPENEM 1 GM in SODIUM CHLORIDE 0.9% 50 ML IVPB SCH (20:22)
--- NOTE | 2017-06-04 22:29 | P.PN ---
Subjective Progress Note Date: 06/04/17 Principal diagnosis: Pancreatic cancer in fever This is a 66-year-old male who has a past medical history significant for pancreatic cancer currently on chemotherapy under the care of Dr. Dominguez diagnosed in February 2015. He is on Gemzar for 3 weeks and off 1 week. He had a recent hospitalization March 01 through March 04 with obstruction of the biliary tract. He was discharged home on Levaquin for 7 days. As antibiotic therapy completed he again became ill and febrile and presented back to the hospital. He can have evidence of sepsis and was placed on antibiotic therapy. He was having some improvement but then had a sudden increase of his total bilirubin and constantly was transferred to his hepatology Center at [facility] for evaluation of his pancreatic stent. This occurred and there was evidence of some blockage in the stent was recannulated and he's done well since. This is the first time that he is becoming acutely ill since that event. He has received chemotherapy last time was approximately 3 weeks ago. The patient has had a follow-up computed tomography scan that shows evidence of progression of his disease. He was to have some further chemotherapy but has been contacted by his oncologist and is now to be treated with a new chemotherapy once there is evidence of improvement of underlying infection. The patient started feeling better is denying of any troubles of the high-grade fever and chills. His appetite is adequate at this time. 06/03/2017 but the patient be feeling better. Fevers improved. No abdominal pain. Eating well without significant pain. No jaundice. Temperature is improved no chills or rigors. 06/04/2017 patient does feel better. He is less short of breath. He is not having jaundice or any other acute difficulties today. Looks forward to discharge home tomorrow. Objective - Vital Signs Vital signs: Vital Signs Temp 98.1 F 06/04/17 15:00 Pulse 130 H 06/04/17 15:36 Resp 16 06/04/17 15:36 BP 139/86 06/04/17 15:00 Pulse Ox 98 06/04/17 15:00 Intake & Output 06/04/17 06/04/17 06/05/17 06:59 18:59 06:59 Intake Total 1370 2000 Balance 1370 1999 Weight 87.997 kg Intake: Intake, IV Titration 1370 1550 Amount Ertapenem 1 gm In Sodium 50 100 Chloride 0.9% 50 ml @ 100 mls/hr IVPB HS MAGDY Rx#: [id number] Sodium Chloride 0.9% 1, 1320 1200 000 ml @ 120 mls/hr IV . Q8H20M [facility]DY Rx#:[id number] Vancomycin 1,750 mg In 250 Sodium Chloride 0.9% 250 ml @ 125 mls/hr IVPB Q12H MAGDY Rx#:[id number] Oral 450 Other: Voiding Method Toilet Toilet Toilet # Voids 4 # Bowel Movements 2 - Exam Gen: This is a 66-year-old male. He is sitting up in bed and appears to be in no acute distress. HEENT: Head is atraumatic, normocephalic. Pupils equal, round. Sclerae is not icteric. Conjunctiva pink. Mucous members of the mouth are slightly dry. NECK: Supple. No JVD. No lymphadenopathy. No thyromegaly. LUNGS: Clear to auscultation. No wheezes or rhonchi. No intercostal retractions. HEART: Regular rate and rhythm. No murmur. ABDOMEN: Soft. Bowel sounds are present. No masses. No tenderness. EXTREMITIES: No pedal edema. No calf tenderness. Dorsalis pedis is +2 bilaterally. NEUROLOGICAL: Patient is awake, alert and oriented x3. Cranial nerves 2 through 12 are grossly intact. - Labs CBC & Chem 7: 06/04/17 07:17 06/04/17 07:17 Labs: Abnormal Lab Results - Last 24 Hours (Table) 06/04/17 06/04/17 Range/Units 07:17 07:17 RBC 3.29 L (4.30-5.90) m/uL Hgb 8.7 L (13.0-17.5) gm/dL Hct 27.6 L (39.0-53.0) % RDW 19.1 H (11.5-15.5) % Lymphocytes # (Manual) 0.99 L (1.0-4.8) k/uL Chloride 108 H (98-107) mmol/L Total Protein 5.2 L (6.3-8.2) g/dL Albumin 2.7 L (3.5-5.0) g/dL Microbiology - Last 24 Hours (Table) 06/01/17 16:12 Blood Culture - Preliminary Blood No Growth after 72 hours Laboratory Results WBC 4.3 k/uL (3.8-10.6) 06/04/17 07:17 RBC 3.29 m/uL (4.30-5.90) L 06/04/17 07:17 Hgb 8.7 gm/dL (13.0-17.5) L 06/04/17 07:17 Hct 27.6 % (39.0-53.0) L 06/04/17 07:17 MCV 83.9 fL (80.0-100.0) 06/04/17 07:17 MCH 26.5 pg (25.0-35.0) 06/04/17 07:17 MCHC 31.6 g/dL (31.0-37.0) 06/04/17 07:17 RDW 19.1 % (11.5-15.5) H 06/04/17 07:17 Plt Count 183 k/uL (150-450) 06/04/17 07:17 Neutrophils % 71 % 06/02/17 07:57 Neutrophils % (Manual) 69 % 06/04/17 07:17 Lymphocytes % 9 % 06/02/17 07:57 Lymphocytes % (Manual) 23 % 06/04/17 07:17 Monocytes % 15 % 06/02/17 07:57 Monocytes % (Manual) 6 % 06/04/17 07:17 Eosinophils % 1 % 06/02/17 07:57 Eosinophils % (Manual) 2 % 06/04/17 07:17 Basophils % 0 % 06/02/17 07:57 Basophils % (Manual) 1 % 06/03/17 05:04 Neutrophils # 5.2 k/uL (1.3-7.7) 06/02/17 07:57 Neutrophils # (Manual) 2.97 k/uL (1.3-7.7) 06/04/17 07:17 Lymphocytes # 0.7 k/uL (1.0-4.8) L 06/02/17 07:57 Lymphocytes # (Manual) 0.99 k/uL (1.0-4.8) L 06/04/17 07:17 Monocytes # 1.1 k/uL (0-1.0) H 06/02/17 07:57 Monocytes # (Manual) 0.26 k/uL (0-1.0) 06/04/17 07:17 Eosinophils # 0.1 k/uL (0-0.7) 06/02/17 07:57 Eosinophils # (Manual) 0.09 k/uL (0-0.7) 06/04/17 07:17 Basophils # 0.0 k/uL (0-0.2) 06/02/17 07:57 Basophils # (Manual) 0.06 k/uL (0-0.2) 06/03/17 05:04 Nucleated RBCs 0 /100 WBC (0-0) 06/04/17 07:17 Manual Slide Review Performed 06/04/17 07:17 Reactive Lymphocytes Present 06/03/17 05:04 Hypochromasia Moderate 06/04/17 07:17 Poikilocytosis Slight 06/04/17 07:17 Poikilocytosis (manual Present 06/02/17 07:57 Anisocytosis Slight 06/04/17 07:17 PT 10.1 sec (9.0-12.0) 06/01/17 16:12 INR 1.0 (<1.2) 06/01/17 16:12 APTT 23.8 sec (22.0-30.0) 06/01/17 16:12 Sodium 139 mmol/L (137-145) 06/04/17 07:17 Potassium 4.1 mmol/L (3.5-5.1) 06/04/17 07:17 Chloride 108 mmol/L (98-107) H 06/04/17 07:17 Carbon Dioxide 24 mmol/L (22-30) 06/04/17 07:17 Anion Gap 7 mmol/L 06/04/17 07:17 BUN 11 mg/dL (9-20) 06/04/17 07:17 Creatinine 0.69 mg/dL (0.66-1.25) 06/04/17 07:17 Est GFR (CKD-EPI)AfAm >90 (>60 ml/min/1.73 sqM) 06/04/17 07:17 Est GFR (CKD-EPI)NonAf >90 (>60 ml/min/1.73 sqM) 06/04/17 07:17 Glucose 87 mg/dL (74-99) 06/04/17 07:17 Plasma Lactic Acid Paddy 1.0 mmol/L (0.7-2.0) 06/01/17 16:12 Calcium 8.6 mg/dL (8.4-10.2) 06/04/17 07:17 Total Bilirubin 0.2 mg/dL (0.2-1.3) 06/04/17 07:17 AST 37 U/L (17-59) 06/04/17 07:17 ALT 71 U/L (21-72) 06/04/17 07:17 Alkaline Phosphatase 111 U/L (38-126) 06/04/17 07:17 Total Protein 5.2 g/dL (6.3-8.2) L 06/04/17 07:17 Albumin 2.7 g/dL (3.5-5.0) L 06/04/17 07:17 Amylase 67 U/L (30-110) 06/01/17 16:12 Lipase 169 U/L (23-300) 06/01/17 16:12 CA 19-9 Antigen 7.9 U/mL (0.0-34.9) 06/04/17 07:17 Urine Color Yellow 06/01/17 16:20 Urine Appearance Clear (Clear) 06/01/17 16:20 Urine pH 6.5 (5.0-8.0) 06/01/17 16:20 Ur Specific Shelby 1.028 (1.001-1.035) 06/01/17 16:20 Urine Protein Trace (Negative) H 06/01/17 16:20 Urine Glucose (UA) Negative (Negative) 06/01/17 16:20 Urine Ketones Negative (Negative) 06/01/17 16:20 Urine Blood Negative (Negative) 06/01/17 16:20 Urine Nitrite Negative (Negative) 06/01/17 16:20 Urine Bilirubin Negative (Negative) 06/01/17 16:20 Urine Urobilinogen 3.0 mg/dL (<2.0) 06/01/17 16:20 Ur Leukocyte Esterase Negative (Negative) 06/01/17 16:20 Vancomycin Trough 14.2 ug/mL 06/03/17 05:04 Heterophile Antibody Negative (Negative) 06/01/17 16:12 Influenza Type A RNA Not Detected (Not Detectd) 06/01/17 16:12 Influenza Type B (PCR) Not Detected (Not Detectd) 06/01/17 16:12 Microbiology 06/01/17 16:12 Blood Blood Culture - Preliminary No Growth after 72 hours 06/01/17 16:20 Urine,Voided Urine Culture - Final Assessment and Plan (1) Ascending cholangitis Narrative/Plan: 67-year-old male who has a known history of pancreatic cancer has had difficulty with obstruction of his biliary duct and does have a biliary stent in place that was placed at [facility]. During his most recent hospitalization he had some blockage in the stent wasn't manipulated and recannulated has been doing well since. He has received chemotherapy approximately 3 weeks ago. He now develops another bout of high-grade fever chills and some abdominal pain but without significant elevation of his bilirubin. Patient still most likely is having ascending cholangitis at this time given his many difficulties. Antibiotic therapy was altered to ertapenem for coverage of the usual pathogens while cultures are pending. We'll determine our course of outpatient antibiotic therapy once we have more data. Fortunately he is showing some improvement at this time. The difficulty is that his computed tomography scan shows evidence of progression of his disease and oncology is related to the patient that there will be a new course of chemotherapy in the near future once his infection process has improved. The patient does have good outlook and is willing to consider further options. At this time does not have evidence of an elevated bilirubin and there was not significant biliary ductal dilatation and a computed tomography scan and consequently we will be able to care for him at our center. 06/03/2017 reveals the patient to be further improved. Fevers resolved. No evidence of any new changes. Abdominal pain is improved. Eating well. No jaundice at this time. We have evidence of negative blood cultures. Patient is showing marked improvement and likely be discharged home on oral antimicrobial therapy when he is ready for discharge to home. 06/04/2017 patient has had further improvement. Fever is resolved. Abdominal pain has resolved. He is eating well with no nausea or emesis. Blood cultures are negative. He has been seen by oncology with no acute changes. Once infection is improved we will restart chemotherapy on 06/14/2017. Patient will be sent home with moxifloxacin 400 mg once a day to complete on 06/13/2017. As long as he has no other acute difficulties should be able to proceed with his chemotherapy at that time especially given what appears to be advancing disease. This could also be causing some fever and the is educated about this potential. Antibiotic sent to pharmacy. 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
[2017-06-04 23:18] VITALS: TEMP 97.8
[2017-06-05] MEDS: LEVOTHYROXINE 100 MCG TAB PO SCH (05:34)
[2017-06-05] MEDS: VANCOMYCIN 1,750 MG in SODIUM CHLORIDE 0.9% 250 ML IVPB SCH (05:34)
[2017-06-05] MEDS: FLUTICASONE 50MCG/SPRAY NASAL 16GM EA NOSTRIL SCH (07:45)
[2017-06-05] MEDS: ENOXAPARIN 30 MG/0.3 ML SYRINGE SQ SCH ×2 (07:45→07:47)
[2017-06-05] MEDS: URSODIOL 300 MG CAP PO SCH (07:46)
[2017-06-05] MEDS: DOCUSATE 100 MG CAP PO SCH (07:46)
[2017-06-05] MEDS: PANTOPRAZOLE 40 MG TABLET PO SCH (07:46)
[2017-06-05] MEDS: guaiFENesin-DM 600/30MG 1 EACH TAB.ER.12H PO SCH (07:46)
[2017-06-05 07:56] LABS: ALT 64 U/L (21-72); AST 30 U/L (17-59); Alkaline Phosphatase 118 U/L (38-126); Anion Gap 8 mmol/L; Blood Urea Nitrogen 10 mg/dL (9-20); Carbon Dioxide 29 mmol/L (22-30); Chloride 104 mmol/L (98-107); Glucose 86 mg/dL (74-99); Potassium 4.2 mmol/L (3.5-5.1); Sodium 141 mmol/L (137-145); Total Bilirubin 0.3 mg/dL (0.2-1.3); Total Protein 5.5 g/dL (6.3-8.2)
[2017-06-05 07:58] LABS: Anisocytosis Slight; HGB 9.5 gm/dL (13.0-17.5); Hypochromasia Moderate; MCH 26.8 pg (25.0-35.0); MCHC 31.5 g/dL (31.0-37.0); MCV 85.1 fL (80.0-100.0); Mean Platelet Volume 7.3; Platelet Count 267 k/uL (150-450); Poikilocytosis Slight; RBC 3.53 m/uL (4.30-5.90); WBC 4.8 k/uL (3.8-10.6)
[2017-06-05 08:25] VITALS: BP 132/85; PULSE 69; RESP 18
[2017-06-05 09:31] LABS: Eosinophils # (M) 0.14 k/uL (0-0.7); Lymphocytes # (M) 0.77 k/uL (1.0-4.8); Monocytes # (M) 0.86 k/uL (0-1.0); Neutrophils # (M) 3.02 k/uL (1.3-7.7); Neutrophils % (M) 63 %; Nucleated Red Blood Cells 0 /100 WBC (0-0); Total Cells Counted 100
--- NOTE | 2017-06-05 11:36 | P.DS ---
Providers Date of admission: 06/01/17 18:52 Attending physician: Brandon Ferreira Consults: 06/01/17 18:02 Consult Physician Stat Consulting Provider: Patrick Spivey Consult Reason/Comments: sepsis, pancreatic ca Do you want consulting provider notified?: Yes Consult Physician Stat Consulting Provider: Francisco Dominguez Consult Reason/Comments: sepsis, pancreatic cancer Do you want consulting provider notified?: Yes Primary care physician: [facility] Course: Patient was admitted with fever chills source of infection is not clear suspected biliary stent infection or ascending cholangitis patient was a valid by infectious disease patient was on ertapenem now switched to moxifloxacin and is being discharged today in stable medical condition to home PHYSICAL EXAMINATION: GENERAL: The patient is alert and oriented x3, not in any acute distress. Well developed, well nourished. HEENT: Pupils are round and equally reacting to light. EOMI. No scleral icterus. No conjunctival pallor. Normocephalic, atraumatic. No pharyngeal erythema. No thyromegaly. CARDIOVASCULAR: S1 and S2 present. No murmurs, rubs, or gallops. PULMONARY: Chest is clear to auscultation, no wheezing or crackles. ABDOMEN: Soft, nontender, nondistended, normoactive bowel sounds. No palpable organomegaly. MUSCULOSKELETAL: No joint swelling or deformity. EXTREMITIES: No cyanosis, clubbing, or pedal edema. NEUROLOGICAL: Gross neurological examination did not reveal any focal deficits. SKIN: No rashes. Fever and chills and abdominal discomfort. suspected biliary stent infection/ ascending cholangitis with history of previous cholangitis in February 2017 Pancreatic cancer stage IV with history of multiple stents at [facility] and chemotherapy weekly. Followed by Dr. Dominguez Status post CT abdomen showing increased size of the mass Normocytic anemia of malignancy Elevated liver enzymes Hypothyroidism History of testicular cancer Patient Condition at Discharge: Stable Plan - Discharge Summary Discharge Rx Participant: No New Discharge Prescriptions: New Moxifloxacin HCl 400 mg PO DAILY #10 tab Continue Docusate [Colace] 100 mg PO BID Fluticasone Nasal [place] [Flonase Nasal [place]] 2 spray EA NOSTRIL DAILY Omeprazole [PriLOSEC] 20 mg PO DAILY Acetaminophen Tab [Tylenol] 650 mg PO Q4-6H PRN PRN Reason: Fever Lactose-Reduced Food [Boost] 237 ml PO DAILY Ursodiol 300 mg PO BID Levothyroxine Sodium [Synthroid] 100 mcg PO DAILY Lenalidomide [Revlimid] 1 cap PO HS Discharge Medication List Docusate [Colace] 100 mg PO BID 11/19/15 [History] Fluticasone Nasal [place] [Flonase Nasal [place]] 2 spray EA NOSTRIL DAILY 05/23/16 [History] Acetaminophen Tab [Tylenol] 650 mg PO Q4-6H PRN 10/04/16 [History] Omeprazole [PriLOSEC] 20 mg PO DAILY 10/04/16 [History] Lactose-Reduced Food [Boost] 237 ml PO DAILY 03/01/17 [History] Ursodiol 300 mg PO BID 03/16/17 [History] Levothyroxine Sodium [Synthroid] 100 mcg PO DAILY 06/01/17 [History] Lenalidomide [Revlimid] 1 cap PO HS 06/03/17 [History] Moxifloxacin HCl 400 mg PO DAILY #10 tab 06/04/17 [Rx] Follow up Appointment(s)/Referral(s): Shelby Styles MD [Primary Care Provider] - 3 Days (Patient to call Dr. Styles's office Wednesday morning to schedule follow up appointment. The office is closed at time of discharge. ) Patient Instructions/Handouts: Moxifloxacin (By mouth), Fever in Adults (GEN), Sepsis (GEN), Leukocytosis (DC) Discharge Disposition: HOME SELF-CARE
[2017-06-05] MEDS ORDERED: VANCOMYCIN TROUGH DUE 1 EACH MISC MISCELLANE ONE (17:00)
== END 2017-06-05 12:45 | disposition home or self-care (01) | DRG 919 ==
LOC: EC 13:54 → 5MS5E 18:52
PROVIDERS: ADMIT Internal Medicine; ATTEND Internal Medicine
DX: T85.79XA Infection and inflammatory reaction due to other internal prosthetic devices, implants and grafts, initial encounter (principal); A41.9 Sepsis, unspecified organism; C25.9 Malignant neoplasm of pancreas, unspecified; C24.1 Malignant neoplasm of ampulla of Vater; C78.7 Secondary malignant neoplasm of liver and intrahepatic bile duct; K83.0 Cholangitis; G62.9 Polyneuropathy, unspecified; D63.0 Anemia in neoplastic disease; E03.9 Hypothyroidism, unspecified; Z85.47 Personal history of malignant neoplasm of testis; Z92.21 Personal history of antineoplastic chemotherapy; Z79.899 Other long term (current) drug therapy; Z80.52 Family history of malignant neoplasm of bladder; Z80.0 Family history of malignant neoplasm of digestive organs; Z80.3 Family history of malignant neoplasm of breast; Z87.19 Personal history of other diseases of the digestive system; Z90.79 Acquired absence of other genital organ(s); Z90.89 Acquired absence of other organs
CPT/HCPCS: 36415; 71046; 80053; 80202; 81003; 82150; 83605; 83690; 85025; 85610; 85730; 86301; 86308; 87040; 87086; 87502; 93005; 96361; 96365; 99285

== ENCOUNTER 2017-06-18 09:05 | Emergency (ER) | payer OTHER, MEDICARE, BC ==
[2017-06-18] MEDS ORDERED: SODIUM CHLORIDE 0.9% 1,000 ML IV STA ×2 (09:24)
[2017-06-18] MEDS ORDERED: ACETAMINOPHEN TAB 500 MG TAB PO STA (10:02)
[2017-06-18] MEDS ORDERED: LEVOFLOXACIN 750MG-D5W PMX 750 MG in DEXTROSE/WATER 1 150ML.BAG IVPB STA (10:04)
[2017-06-18] MEDS ORDERED: MORPHINE SULFATE 4 MG/0.8 ML SYRINGE (INJ) IVP STA (10:13)
[2017-06-18 10:20] LABS: Anisocytosis Slight; Basophils % (A) 0 %; Eosinophils # (A) 0.1 k/uL (0-0.7); Eosinophils % (A) 1 %; HCT 30.5 % (39.0-53.0); HGB 9.8 gm/dL (13.0-17.5); Hypochromasia Slight; Lymphocytes # (A) 0.2 k/uL (1.0-4.8); Lymphocytes % (A) 2 %; MCH 26.6 pg (25.0-35.0); MCHC 32.3 g/dL (31.0-37.0); MCV 82.4 fL (80.0-100.0); Mean Platelet Volume 7.2; Monocytes # (A) 0.1 k/uL (0-1.0); Monocytes % (A) 1 %; Neutrophils # (A) 9.4 k/uL (1.3-7.7); Neutrophils % (A) 97 %; Platelet Count 213 k/uL (150-450); RDW 18.4 % (11.5-15.5); WBC 9.8 k/uL (3.8-10.6)
[2017-06-18 10:30] LABS: ALT 209 U/L (21-72); AST 156 U/L (17-59); Albumin 3.2 g/dL (3.5-5.0); Alkaline Phosphatase 172 U/L (38-126); Anion Gap 14 mmol/L; Blood Urea Nitrogen 16 mg/dL (9-20); Calcium 8.7 mg/dL (8.4-10.2); Carbon Dioxide 23 mmol/L (22-30); Chloride 101 mmol/L (98-107); Glucose 121 mg/dL (74-99); Potassium 4.4 mmol/L (3.5-5.1); Sodium 138 mmol/L (137-145); Total Bilirubin 4.8 mg/dL (0.2-1.3); Total Protein 5.8 g/dL (6.3-8.2)
[2017-06-18] MEDS ORDERED: IBUPROFEN 600 MG TAB PO STA (10:51)
[2017-06-18] MEDS ORDERED: SODIUM CHLORIDE 0.9% 1,000 ML IV ONE (10:51)
--- NOTE | 2017-06-18 10:52 | ED ---
Fever HPI - General Chief Complaint: Fever Stated Complaint: fever, shaking, vomiting Time Seen by Provider: 06/18/17 09:18 Source: patient, RN notes reviewed, old records reviewed Mode of arrival: wheelchair Limitations: no limitations - History of Present Illness Initial Comments: This patient's a 67-year-old male with a history of stage IV pancreatic cancer presents emergency Department with fever chills, and jaundice. He reports that he has been having issues with biliary stent for the past few months. He was admitted in February and he was transferred [facility] at that time be consistent was clogged. They cleaned out the stent at that time. Patient reports that he had some blood work done during his last chemo treatment on Wednesday. He reports that his bilirubin at that time was 0.8. His liver enzymes were also mildly elevated. Patient reports that since Wednesday evening he started to have chills and fever. They initially questioned process related to chemotherapy. He reports this morning he started to return and severe chills and sweats. He's had a fever 101. Patient had recently been admitted and discharged for similar complaints over his bilirubin was stable at that time. They sent him home on moxifloxacin. Patient has been taking that up until June 13. - Related Data Home Medications Medication Instructions Recorded Confirmed Docusate [Colace] 100 mg PO BID 11/19/15 06/18/17 Fluticasone Nasal [place] [Flonase 2 spray EA NOSTRIL DAILY 05/23/16 06/18/17 Nasal [place]] Omeprazole [PriLOSEC] 20 mg PO DAILY 10/04/16 06/18/17 Ursodiol 300 mg PO BID 03/16/17 06/18/17 Levothyroxine Sodium [Synthroid] 100 mcg PO DAILY 06/01/17 06/18/17 Ibuprofen [Motrin Ib] 200 mg PO Q4H PRN 06/18/17 06/18/17 Prochlorperazine [Compazine] 10 mg PO Q6H PRN 06/18/17 06/18/17 guaiFENesin [Mucinex] 600 mg PO BID 06/18/17 06/18/17 Allergies Allergy/AdvReac Type Severity Reaction Status Date / Time No Known Allergies Allergy Verified 06/18/17 10:19 Review of Systems ROS Statement: Those systems with pertinent positive or pertinent negative responses have been documented in the HPI. ROS Other: All systems not noted in ROS Statement are negative. Past Medical History Past Medical History: Cancer, Thyroid Disorder Additional Past Medical History / Comment(s): Testicular cancer, pancreatic cancer (diagnosed February 2015), sepsis, hypothyroid. upper/lower bridges History of Any Multi-Drug Resistant Organisms: None Reported Past Surgical History: Hernia Repair, Tonsillectomy Additional Past Surgical History / Comment(s): 1979 left testicle + lymph nodes removed along spine, right inguinal hernia repair x3 with mesh, hemorrhoidectomy (2011), colonoscopy (Jan 2015), titanium stent in pancreas (2015 @ [place]), restent in 01/2016 ([facility]), smart port. Past Anesthesia/Blood Transfusion Reactions: No Reported Reaction Past Psychological History: No Psychological Hx Reported Smoking Status: Never smoker Past Alcohol Use History: None Reported Past Drug Use History: None Reported - Past Family History Mother Family Medical History: Cancer Additional Family Medical History / Comment(s): Cancer x 3, lived until age 89. Sister(s) Family Medical History: Cancer Additional Family Medical History / Comment(s): Breast cancer. Brother(s) Family Medical History: Cancer Father Family Medical History: Cancer Additional Family Medical History / Comment(s): Colon/bladder cancer x 3, at 94 General Exam - General Exam Comments Initial Comments: 67-year-old male. He does appear somewhat icteric. He is alert. Does not appear to be in any acute distress. Febrile and 101.5. Limitations: no limitations General appearance: alert, in no apparent distress Head exam: Present: atraumatic, normocephalic, normal inspection Eye exam: Present: normal appearance ENT exam: Present: normal exam, mucous membranes moist Neck exam: Present: normal inspection. Absent: tenderness, meningismus, lymphadenopathy Respiratory exam: Present: normal lung sounds bilaterally. Absent: respiratory distress, wheezes, rales, rhonchi, stridor Cardiovascular Exam: Present: normal rhythm, tachycardia, normal heart sounds. Absent: regular rate, systolic murmur, diastolic murmur, rubs, gallop, clicks GI/Abdominal exam: Present: soft, tenderness (Right upper quadrant tenderness.) , normal bowel sounds. Absent: distended, guarding, rebound, rigid Extremities exam: Present: normal inspection, full ROM, normal capillary refill. Absent: tenderness, pedal edema, joint swelling, calf tenderness Neurological exam: Present: alert, oriented X3, CN II-XII intact Psychiatric exam: Present: normal affect, normal mood Skin exam: Present: warm, dry, intact, other (Patient has evidence of jaundice.) . Absent: normal color, rash Course Vital Signs 06/18/17 06/18/17 06/18/17 09:10 10:25 11:23 Temperature 100.5 F H 101.5 F H Pulse Rate 115 H 121 H Respiratory 20 18 Rate Blood Pressure 166/100 90/56 O2 Sat by Pulse 96 96 Oximetry 06/18/17 11:50 Temperature 98.6 F Pulse Rate 117 H Respiratory 18 Rate Blood Pressure 91/53 O2 Sat by Pulse 96 Oximetry Medical Decision Making - Medical Decision Making 67-year-old male presents with increasing jaundice, fever and chills. He was recently admitted for diagnosis of ascending cholangitis. His bilirubin was stable at that time on his discharge on 413. He was discharged with moxifloxacin to taking his medicines until 422. At his last chemo treatment on Wednesday. Afterwards he started to develop fevers and chills. At this time patient has a fever 101.5. Is given a 2 L bolus and started on IV Levaquin. Blood cultures obtained. White blood cell count was 9.8 with a left shift of 9.4. RBCs 3.7. Hemoglobin 9.8. At this time patient's total bilirubin is 4.8. This is a dramatic increase from 0.8 earlier in the week. Patient's lactic was reviewed and normal. Likely indicating obstruction and a biliary stent. Patient was given a liter bolus. Blood pressures rechecked and was 90/ 56. Heart rate of 120. Given a second liter bolus at this time. He was started on Levaquin and given a 1 g of Rocephin. I discussed the case with multiple physicians and referred main. Patient will be transferred there to see his GI specialist who placed the stent. His last chest social Dr. Gilbert cleaned it out 2017. Dr. Mcmahan please see original sent January 2016. Patient will be admitted to the medical ICU, accepted physician is Dr. Junior. - Lab Data Result diagrams: 06/18/17 10:07 06/18/17 10:07 Lab Results 0406/[id number]/17 06/18/17 Range/Units 10:07 10:07 10:07 WBC 9.8 (3.8-10.6) k/uL RBC 3.70 L (4.30-5.90) m/uL Hgb 9.8 L (13.0-17.5) gm/dL Hct 30.5 L (39.0-53.0) % MCV 82.4 (80.0-100.0) fL MCH 26.6 (25.0-35.0) pg MCHC 32.3 (31.0-37.0) g/dL RDW 18.4 H (11.5-15.5) % Plt Count 213 (150-450) k/uL Neutrophils % 97 % Lymphocytes % 2 % Monocytes % 1 % Eosinophils % 1 % Basophils % 0 % Neutrophils # 9.4 H (1.3-7.7) k/uL Lymphocytes # 0.2 L (1.0-4.8) k/uL Monocytes # 0.1 (0-1.0) k/uL Eosinophils # 0.1 (0-0.7) k/uL Basophils # 0.0 (0-0.2) k/uL Hypochromasia Slight Anisocytosis Slight Sodium 138 (137-145) mmol/L Potassium 4.4 (3.5-5.1) mmol/L Chloride 101 (98-107) mmol/L Carbon Dioxide 23 (22-30) mmol/L Anion Gap 14 mmol/L BUN 16 (9-20) mg/dL Creatinine 0.80 (0.66-1.25) mg/dL Est GFR (CKD-EPI)AfAm >90 (>60 ml/min/1.73 sqM) Est GFR (CKD-EPI)NonAf >90 (>60 ml/min/1.73 sqM) Glucose 121 H (74-99) mg/dL Plasma Lactic Acid Paddy 1.2 (0.7-2.0) mmol/L Calcium 8.7 (8.4-10.2) mg/dL Total Bilirubin 4.8 H (0.2-1.3) mg/dL AST 156 H (17-59) U/L ALT 209 H (21-72) U/L Alkaline Phosphatase 172 H (38-126) U/L Total Protein 5.8 L (6.3-8.2) g/dL Albumin 3.2 L (3.5-5.0) g/dL Disposition Clinical Impression: Sepsis, History of biliary duct stent placement, Ascending cholangitis Disposition: DC/TRNS INTERMEDIATE CARE FAC Condition: Stable Is patient prescribed a controlled substance at d/c from ED?: No If prescribed controlled substance>3 days was MAPS reviewed?: No When asked, does pt state using other controlled substances?: No Referrals: Shelby Styles MD [Primary Care Provider] - 1-2 days - Out of Hospital Transfer - Req. Specs Out of Hospital Transfer - Requested Specifics: Other Emergency Center ([facility])
[2017-06-18 11:25] VITALS: RESP 18
[2017-06-18] MEDS ORDERED: cefTRIAXone IN SWFI 1,000 MG/10 ML SYRINGE IVP STA (11:30)
[2017-06-18 11:51] VITALS: BP 91/53; PULSE 117; TEMP 98.6
== END 2017-06-18 12:10 ==
LOC: EC 09:05
DX: A41.9 Sepsis, unspecified organism (principal); K83.0 Cholangitis; E03.9 Hypothyroidism, unspecified; Z96.89 Presence of other specified functional implants; Z85.07 Personal history of malignant neoplasm of pancreas; Z85.47 Personal history of malignant neoplasm of testis; Z79.51 Long term (current) use of inhaled steroids; Z79.899 Other long term (current) drug therapy; Z98.890 Other specified postprocedural states
CPT/HCPCS: 36415; 80053; 83605; 85025; 87040; 87077; 87186; 99285; 96365; 96366; 96375 ×2; J0696; J1956; J2270

== ENCOUNTER 2017-08-15 18:11 | Inpatient (IN) | payer OTHER, MEDICARE, BC ==
[2017-08-15] MEDS ORDERED: ACETAMINOPHEN TAB 500 MG TAB PO STA (19:41)
[2017-08-15] MEDS ORDERED: ACETAMINOPHEN TAB 325 MG TAB PO STA (19:52)
[2017-08-15] MEDS ORDERED: IBUPROFEN 400 MG TAB PO STA (19:53)
[2017-08-15] MEDS ORDERED: SODIUM CHLORIDE 0.9% 500 ML IV ONE (20:21)
[2017-08-15 20:32] LABS: Anisocytosis Moderate; Basophils % (A) 1 %; Eosinophils % (A) 1 %; HCT 30.5 % (39.0-53.0); HGB 10.2 gm/dL (13.0-17.5); Hypochromasia Slight; Lymphocytes # (A) 0.4 k/uL (1.0-4.8); Lymphocytes % (A) 10 %; MCH 26.5 pg (25.0-35.0); MCHC 33.6 g/dL (31.0-37.0); MCV 78.9 fL (80.0-100.0); Microcytosis Slight; Monocytes # (A) 0.4 k/uL (0-1.0); Monocytes % (A) 9 %; Neutrophils # (A) 3.2 k/uL (1.3-7.7); Neutrophils % (A) 76 %; RBC 3.87 m/uL (4.30-5.90); RDW 20.7 % (11.5-15.5); WBC 4.2 k/uL (3.8-10.6)
[2017-08-15 20:34] LABS: Platelet Count 170 k/uL (150-450)
[2017-08-15 20:59] LABS: Albumin 3.3 g/dL (3.5-5.0); Carbon Dioxide 23 mmol/L (22-30); Chloride 96 mmol/L (98-107); Total Protein 5.8 g/dL (6.3-8.2)
[2017-08-15 21:23] LABS: ALT 66 U/L (21-72); AST 60 U/L (17-59); Alkaline Phosphatase 149 U/L (38-126); Anion Gap 11 mmol/L; Blood Urea Nitrogen 16 mg/dL (9-20); Calcium 8.6 mg/dL (8.4-10.2); Glucose 111 mg/dL (74-99); Potassium 4.7 mmol/L (3.5-5.1); Sodium 130 mmol/L (137-145); Total Bilirubin 0.7 mg/dL (0.2-1.3)
--- NOTE | 2017-08-15 21:50 | ED ---
General Adult HPI - General Chief complaint: Fever Stated complaint: Chemo/has Fever Time Seen by Provider: 08/15/17 20:39 Source: patient, RN notes reviewed, old records reviewed Mode of arrival: wheelchair Limitations: no limitations - History of Present Illness Initial comments: This is a 67-year-old female the ER for evaluation. Patient resents for evaluation regards to fever. Patient has positive CVA patient, does have bilirubin in her bile duct stent, patient does have easy sepsis from collapse, patient has had fever today which has been persistent and increasing. Patient does give fever with chemotherapy, has mild cough but denies any other significant symptoms. No abdominal pain no rashes, no nausea vomiting or diarrhea. - Related Data Home Medications Medication Instructions Recorded Confirmed Docusate [Colace] 100 mg PO BID 11/19/15 06/18/17 Fluticasone Nasal [place] [Flonase 2 spray EA NOSTRIL DAILY 05/23/16 06/18/17 Nasal [place]] Omeprazole [PriLOSEC] 20 mg PO DAILY 10/04/16 06/18/17 Ursodiol 300 mg PO BID 03/16/17 06/18/17 Levothyroxine Sodium [Synthroid] 100 mcg PO DAILY 06/01/17 06/18/17 Ibuprofen [Motrin Ib] 200 mg PO Q4H PRN 06/18/17 06/18/17 Prochlorperazine [Compazine] 10 mg PO Q6H PRN 06/18/17 06/18/17 guaiFENesin [Mucinex] 600 mg PO BID 06/18/17 06/18/17 Allergies Allergy/AdvReac Type Severity Reaction Status Date / Time morphine Allergy Unknown Verified 08/15/17 18:37 Review of Systems ROS Statement: Those systems with pertinent positive or pertinent negative responses have been documented in the HPI. ROS Other: All systems not noted in ROS Statement are negative. Past Medical History Past Medical History: Cancer, Thyroid Disorder Additional Past Medical History / Comment(s): Testicular cancer, pancreatic cancer (diagnosed February 2015), sepsis, hypothyroid. upper/lower bridges History of Any Multi-Drug Resistant Organisms: None Reported Past Surgical History: Hernia Repair, Tonsillectomy Additional Past Surgical History / Comment(s): 1979 left testicle + lymph nodes removed along spine, right inguinal hernia repair x3 with mesh, hemorrhoidectomy (2011), colonoscopy (Jan 2015), titanium stent in pancreas (2015 @ [facility]), restent in 01/2016 ([facility]), smart port. Past Anesthesia/Blood Transfusion Reactions: No Reported Reaction Past Psychological History: No Psychological Hx Reported Smoking Status: Never smoker Past Alcohol Use History: None Reported Past Drug Use History: None Reported - Past Family History Mother Family Medical History: Cancer Additional Family Medical History / Comment(s): Cancer x 3, lived until age 89. Sister(s) Family Medical History: Cancer Additional Family Medical History / Comment(s): Breast cancer. Brother(s) Family Medical History: Cancer Father Family Medical History: Cancer Additional Family Medical History / Comment(s): Colon/bladder cancer x 3, at 94 General Exam Limitations: no limitations General appearance: alert, in no apparent distress Head exam: Present: atraumatic, normocephalic, normal inspection Eye exam: Present: normal appearance, PERRL, EOMI. Absent: scleral icterus, conjunctival injection, periorbital swelling ENT exam: Present: normal exam, mucous membranes moist Neck exam: Present: normal inspection. Absent: tenderness, meningismus, lymphadenopathy Respiratory exam: Present: normal lung sounds bilaterally. Absent: respiratory distress, wheezes, rales, rhonchi, stridor Cardiovascular Exam: Present: normal rhythm, tachycardia, normal heart sounds. Absent: systolic murmur, diastolic murmur, rubs, gallop, clicks GI/Abdominal exam: Present: soft, normal bowel sounds. Absent: distended, tenderness, guarding, rebound, rigid Extremities exam: Present: normal inspection, full ROM, normal capillary refill. Absent: tenderness, pedal edema, joint swelling, calf tenderness Back exam: Present: normal inspection Neurological exam: Present: alert, oriented X3, CN II-XII intact Psychiatric exam: Present: normal affect, normal mood Skin exam: Present: warm, dry, intact, normal color. Absent: rash Course Vital Signs 08/15/17 08/15/17 08/15/17 18:32 20:24 21:58 Temperature 103.0 F H 101.5 F H 100.6 F H Pulse Rate 137 H 105 H Respiratory 18 16 Rate Blood Pressure 113/77 98/63 O2 Sat by Pulse 94 L 95 Oximetry - Reevaluation(s) Reevaluation #1: 08/15/17 23:27 Medical records were thoroughly reviewed including recent lab tests Reevaluation #2: 08/15/17 23:[address] Dominguez, will admit patient on antibiotics to be further evaluated in the morning Medical Decision Making - Medical Decision Making 67 male the ER for evaluation of fever. Mildly elevated bilirubin. Patient is to be admitted for continued evaluation by oncology and infectious disease. Will start patient on broad-spectrum antibiotics. - Lab Data Result diagrams: 08/15/17 20:10 08/15/17 20:10 Lab Results 08/15/17 08/15/17 08/15/17 Range/Units 20:10 20:10 20:10 WBC 4.2 (3.8-10.6) k/uL RBC 3.87 L (4.30-5.90) m/uL Hgb 10.2 L (13.0-17.5) gm/dL Hct 30.5 L (39.0-53.0) % MCV 78.9 L (80.0-100.0) fL MCH 26.5 (25.0-35.0) pg MCHC 33.6 (31.0-37.0) g/dL RDW 20.7 H (11.5-15.5) % Plt Count 170 D (150-450) k/uL Neutrophils % 76 % Lymphocytes % 10 % Monocytes % 9 % Eosinophils % 1 % Basophils % 1 % Neutrophils # 3.2 (1.3-7.7) k/uL Lymphocytes # 0.4 L (1.0-4.8) k/uL Monocytes # 0.4 (0-1.0) k/uL Eosinophils # 0.0 (0-0.7) k/uL Basophils # 0.0 (0-0.2) k/uL Hypochromasia Slight Anisocytosis Moderate Microcytosis Slight Sodium 130 L (137-145) mmol/L Potassium 4.7 (3.5-5.1) mmol/L Chloride 96 L (98-107) mmol/L Carbon Dioxide 23 (22-30) mmol/L Anion Gap 11 mmol/L BUN 16 (9-20) mg/dL Creatinine 0.70 (0.66-1.25) mg/dL Est GFR (CKD-EPI)AfAm >90 (>60 ml/min/1.73 sqM) Est GFR (CKD-EPI)NonAf >90 (>60 ml/min/1.73 sqM) Glucose 111 H (74-99) mg/dL Plasma Lactic Acid Paddy 2.3 H* (0.7-2.0) mmol/L Calcium 8.6 (8.4-10.2) mg/dL Total Bilirubin 0.7 (0.2-1.3) mg/dL AST 60 H (17-59) U/L ALT 66 (21-72) U/L Alkaline Phosphatase 149 H (38-126) U/L Lactate Dehydrogenase (313-618) U/L Total Protein 5.8 L (6.3-8.2) g/dL Albumin 3.3 L (3.5-5.0) g/dL Urine Color Urine Appearance (Clear) Urine pH (5.0-8.0) Ur Specific [place] (1.001-1.035) Urine Protein (Negative) Urine Glucose (UA) (Negative) Urine Ketones (Negative) Urine Blood (Negative) Urine Nitrite (Negative) Urine Bilirubin (Negative) Urine Urobilinogen (<2.0) mg/dL Ur Leukocyte Esterase (Negative) 08/15/17 08/15/17 Range/Units 20:10 21:50 WBC (3.8-10.6) k/uL RBC (4.30-5.90) m/uL Hgb (13.0-17.5) gm/dL Hct (39.0-53.0) % MCV (80.0-100.0) fL MCH (25.0-35.0) pg MCHC (31.0-37.0) g/dL RDW (11.5-15.5) % Plt Count (150-450) k/uL Neutrophils % % Lymphocytes % % Monocytes % % Eosinophils % % Basophils % % Neutrophils # (1.3-7.7) k/uL Lymphocytes # (1.0-4.8) k/uL Monocytes # (0-1.0) k/uL Eosinophils # (0-0.7) k/uL Basophils # (0-0.2) k/uL Hypochromasia Anisocytosis Microcytosis Sodium (137-145) mmol/L Potassium (3.5-5.1) mmol/L Chloride (98-107) mmol/L Carbon Dioxide (22-30) mmol/L Anion Gap mmol/L BUN (9-20) mg/dL Creatinine (0.66-1.25) mg/dL Est GFR (CKD-EPI)AfAm (>60 ml/min/1.73 sqM) Est GFR (CKD-EPI)NonAf (>60 ml/min/1.73 sqM) Glucose (74-99) mg/dL Plasma Lactic Acid Paddy (0.7-2.0) mmol/L Calcium (8.4-10.2) mg/dL Total Bilirubin (0.2-1.3) mg/dL AST (17-59) U/L ALT (21-72) U/L Alkaline Phosphatase (38-126) U/L Lactate Dehydrogenase 557 (313-618) U/L Total Protein (6.3-8.2) g/dL Albumin (3.5-5.0) g/dL Urine Color Yellow Urine Appearance Clear (Clear) Urine pH 5.5 (5.0-8.0) Ur Specific [place] 1.018 (1.001-1.035) Urine Protein Trace H (Negative) Urine Glucose (UA) Negative (Negative) Urine Ketones Negative (Negative) Urine Blood Negative (Negative) Urine Nitrite Negative (Negative) Urine Bilirubin Negative (Negative) Urine Urobilinogen 2.0 (<2.0) mg/dL Ur Leukocyte Esterase Negative (Negative) - Radiology Data Radiology results: report reviewed (Chest x-rays negative for acute disease), image reviewed Disposition Clinical Impression: Fever, Elevated LFTs Narrative: roSepsis Disposition: ADMITTED IP TO THIS HOSP Condition: Undetermined Referrals: Shelby Styles MD [Primary Care Provider] - 1-2 days
--- NOTE | 2017-08-15 21:53 | XR ---
EXAMINATION TYPE: XR chest 2V DATE OF EXAM: 08/15/2017 COMPARISON: 06/01/2017 INDICATION: Fever TECHNIQUE: Frontal and lateral views of the chest are obtained. FINDINGS: The heart size is normal. The pulmonary vasculature is normal. The lungs are clear. Port is present on the left tip in superior vena cava region. There is some chr onic mild elevation left diaphragm. Nipple shadow may be at the right lung base IMPRESSION: 1. No acute pulmonary process. 2. Probable nipple shadow. Follow-up chest studies can be performed with markers.
[2017-08-15] MEDS ORDERED: SODIUM CHLORIDE 0.9% 1,000 ML IV STA (21:54)
[2017-08-15 21:58] LABS: Appearance,Urine Clear (Clear); Bilirubin,Urine Negative (Negative); Blood,Urine Negative (Negative); Color,Urine Yellow; Glucose,Urine (UA) Negative (Negative); Ketones,Urine Negative (Negative); Leukocyte Esterase,Urine Negative (Negative); Nitrite,Urine Negative (Negative); PH, Urine 5.5 (5.0-8.0); Protein,Urine Trace (Negative); Specific Gravity,Urine 1.018 (1.001-1.035)
[2017-08-15] MEDS ORDERED: PIPERACILLIN-TAZOBACTAM 3.375 GM in DEXTROSE/WATER 1 50ML.BAG IVPB STA (23:22)
[2017-08-15] MEDS: SODIUM CHLORIDE 0.9% 500 ML IV SCH (23:55)
[2017-08-16] MEDS: SODIUM CHLORIDE 0.9% 500 ML IV SCH (01:03)
[2017-08-16] MEDS: SODIUM CHLORIDE 0.9% 1,000 ML IV SCH ×4 (01:04→23:34)
[2017-08-16] MEDS: PIPERACILLIN-TAZOBACTAM 3.375 GM in DEXTROSE/WATER 1 50ML.BAG IVPB SCH ×4 (01:04→23:28)
[2017-08-16] MEDS: ACETAMINOPHEN TAB 325 MG TAB PO PRN ×2 (04:53→16:53)
[2017-08-16 05:01] VITALS: BMI 30.7
[2017-08-16] MEDS ORDERED: IBUPROFEN 600 MG TAB PO STA (05:44)
[2017-08-16 09:42] LABS: ALT 52 U/L (21-72); AST 36 U/L (17-59); Albumin 2.4 g/dL (3.5-5.0); Alkaline Phosphatase 105 U/L (38-126); Anion Gap 9 mmol/L; Blood Urea Nitrogen 13 mg/dL (9-20); Calcium 7.8 mg/dL (8.4-10.2); Carbon Dioxide 20 mmol/L (22-30); Chloride 104 mmol/L (98-107); Glucose 131 mg/dL (74-99); Potassium 4.4 mmol/L (3.5-5.1); Sodium 133 mmol/L (137-145); Total Bilirubin 0.4 mg/dL (0.2-1.3); Total Protein 4.6 g/dL (6.3-8.2)
[2017-08-16 09:44] LABS: Anisocytosis Moderate; Hypochromasia Moderate; MCH 25.2 pg (25.0-35.0); MCHC 31.3 g/dL (31.0-37.0); MCV 80.4 fL (80.0-100.0); Mean Platelet Volume 8.2; Microcytosis Slight; Platelet Count 121 k/uL (150-450); RBC 3.23 m/uL (4.30-5.90); RDW 20.4 % (11.5-15.5)
[2017-08-16 09:56] LABS: HGB 8.1 gm/dL (13.0-17.5)
[2017-08-16 11:20] LABS: Lymphocytes # (M) 0.24 k/uL (1.0-4.8); Monocytes # (M) 0.81 k/uL (0-1.0); Neutrophils # (M) 1.95 k/uL (1.3-7.7); Neutrophils % (M) 65 %; Nucleated Red Blood Cells 0 /100 WBC (0-0); Total Cells Counted 100
[2017-08-16 11:22] LABS: Poikilocytosis (M) Present
--- NOTE | 2017-08-16 12:21 | P.HPIM ---
History of Present Illness This this is a pleasant 67 years old male with past medical history of pancreatic cancer diagnosed in February 2059, testicular cancer, hypothyroidism. Patient is status post ERCP and he had weakness in his biliary tract. Patient is currently on chemotherapy. He presents last night because of fever 103.0. Patient was admitted twice with similar problem. In the last few months. At that time suspected to have sepsis secondary to biliary infection and was treated with antibiotics. Patient denies abdominal pain. No change in bowel habits. No urinary complaints. No nausea or vomiting. No chest pain or dyspnea. No headache or focal neurological complaints has no weakness. No back pain. No abnormal sensation. No pleural effusions or difficulty swallowing. Patient has Port-A-Cath in the left upper chest and he got chemotherapy last week Review of Systems CONSTITUTIONAL: No fever, no malaise, no fatigue. HEENT: No recent visual problems or hearing problems. Denied any sore throat. CARDIOVASCULAR: No orthopnea, PND, no palpitations, no syncope. PULMONARY: No shortness of breath, no cough, no hemoptysis. GASTROINTESTINAL: No diarrhea, no nausea, no vomiting, no abdominal pain. Normoactive bowel sounds. NEUROLOGICAL: No headaches, no weakness, no numbness. HEMATOLOGICAL: Denies any bleeding or petechiae. GENITOURINARY: Denies any burning micturition, frequency, or urgency. MUSCULOSKELETAL/RHEUMATOLOGICAL: Denies any joint pain, swelling, or any muscle pain. ENDOCRINE: Denies any polyuria or polydipsia. Past Medical History Past Medical History: Cancer, Thyroid Disorder Additional Past Medical History / Comment(s): Testicular cancer, pancreatic cancer (diagnosed February 2015), sepsis, hypothyroid, upper/lower bridges History of Any Multi-Drug Resistant Organisms: None Reported Past Surgical History: Hernia Repair, Tonsillectomy Additional Past Surgical History / Comment(s): 1979 left testicle + lymph nodes removed along spine, right inguinal hernia repair x3 with mesh, hemorrhoidectomy (2011), colonoscopy (Jan 2015), titanium stent in pancreas (2015 @ [place]), restent in 01/2016 ([facility]), power port. Past Anesthesia/Blood Transfusion Reactions: No Reported Reaction Past Psychological History: No Psychological Hx Reported Additional Psychological History / Comment(s): Pt resides with his spouse and son. There is a cat in the household. Pt is independent. 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 He lives at home with his and son. There is a cat in the home. No recent travel or service. Past Drug Use History: None Reported Additional Drug Use History / Comment(s): . - Past Family History Mother Family Medical History: Cancer Additional Family Medical History / Comment(s): Cancer x 3, lived until age 89. Sister(s) Family Medical History: Cancer Additional Family Medical History / Comment(s): Breast cancer. Brother(s) Family Medical History: Cancer Father Family Medical History: Cancer Additional Family Medical History / Comment(s): Colon/bladder cancer x 3, at 94 Medications and Allergies Home Medications Medication Instructions Recorded Confirmed Type RX: Docusate [Colace] 100 mg PO BID 11/19/15 08/16/17 History RX: Fluticasone Nasal [place] 2 spray EA NOSTRIL DAILY 05/23/16 08/16/17 History [Flonase Nasal [place]] RX: Omeprazole [PriLOSEC] 20 mg PO DAILY 10/04/16 08/16/17 History RX: Ursodiol 300 mg PO BID 03/16/17 08/16/17 History RX: Levothyroxine Sodium 100 mcg PO DAILY 06/01/17 08/16/17 History [Synthroid] Prochlorperazine [Compazine] 10 mg PO Q6H PRN 06/18/17 08/16/17 History guaiFENesin [Mucinex] 600 mg PO BID 06/18/17 08/16/17 History RX: Nystatin 100,000 unit PO Q6H PRN 08/16/17 08/16/17 History Allergies Allergy/AdvReac Type Severity Reaction Status Date / Time morphine Allergy Unknown Verified 08/16/17 08:00 Physical Exam Vitals: Vital Signs Temp Pulse Pulse Resp BP BP Pulse Ox 08/16/17 10:55 98 08/16/17 08:00 94 16 08/16/17 05:52 101.4 F H 08/16/17 05:31 100.7 F H 08/16/17 04:45 99.2 F 94 16 143/80 100 08/16/17 01:30 16 08/16/17 00:27 97.5 F L 90 16 143/71 97 08/15/17 23:38 98.6 F 95 16 108/64 97 08/15/17 21:58 100.6 F H 105 H 16 98/63 95 08/15/17 20:24 101.5 F H 08/15/17 18:32 103.0 F H 137 H 18 113/77 94 L Intake and Output 08/15/17 08/16/17 08/16/17 22:59 06:59 14:59 Other: # Voids 1 Weight 86.183 kg 86.183 kg GENERAL: The patient is alert and oriented x3, not in any acute distress. Well developed, well nourished. HEENT: Pupils are round and equally reacting to light. EOMI. No scleral icterus. No conjunctival pallor. Normocephalic, atraumatic. No pharyngeal erythema. No thyromegaly. CARDIOVASCULAR: S1 and S2 present. No murmurs, rubs, or gallops. -PULMONARY: Chest is clear to auscultation, no wheezing or crackles. , Port-A- Cath in the left upper chest ABDOMEN: Soft, nontender, nondistended, normoactive bowel sounds. No palpable organomegaly. MUSCULOSKELETAL: No joint swelling or deformity. EXTREMITIES: No cyanosis, clubbing, or pedal edema. NEUROLOGICAL: Gross neurological examination did not reveal any focal deficits. SKIN: No rashes. Results CBC & Chem 7: 08/16/17 08:42 08/16/17 08:42 Labs: Abnormal Lab Results - Last 24 Hours (Table) 08/15/17 08/15/17 08/15/17 Range/Units 20:10 20:10 20:10 WBC (3.8-10.6) k/uL RBC 3.87 L (4.30-5.90) m/uL Hgb 10.2 L (13.0-17.5) gm/dL Hct 30.5 L (39.0-53.0) % MCV 78.9 L (80.0-100.0) fL RDW 20.7 H (11.5-15.5) % Plt Count (150-450) k/uL Lymphocytes # 0.4 L (1.0-4.8) k/uL Lymphocytes # (Manual) (1.0-4.8) k/uL Sodium 130 L (137-145) mmol/L Chloride 96 L (98-107) mmol/L Carbon Dioxide (22-30) mmol/L Glucose 111 H (74-99) mg/dL Plasma Lactic Acid Paddy 2.3 H* (0.7-2.0) mmol/L Calcium (8.4-10.2) mg/dL AST 60 H (17-59) U/L Alkaline Phosphatase 149 H (38-126) U/L Total Protein 5.8 L (6.3-8.2) g/dL Albumin 3.3 L (3.5-5.0) g/dL Urine Protein (Negative) 08/15/17 08/16/17 08/16/17 Range/Units 21:50 08:42 08:42 WBC 3.0 L (3.8-10.6) k/uL RBC 3.23 L (4.30-5.90) m/uL Hgb 8.1 L D (13.0-17.5) gm/dL Hct 26.0 L (39.0-53.0) % MCV (80.0-100.0) fL RDW 20.4 H (11.5-15.5) % Plt Count 121 L (150-450) k/uL Lymphocytes # (1.0-4.8) k/uL Lymphocytes # (Manual) 0.24 L (1.0-4.8) k/uL Sodium 133 L (137-145) mmol/L Chloride (98-107) mmol/L Carbon Dioxide 20 L (22-30) mmol/L Glucose 131 H (74-99) mg/dL Plasma Lactic Acid Paddy (0.7-2.0) mmol/L Calcium 7.8 L (8.4-10.2) mg/dL AST (17-59) U/L Alkaline Phosphatase (38-126) U/L Total Protein 4.6 L (6.3-8.2) g/dL Albumin 2.4 L (3.5-5.0) g/dL Urine Protein Trace H (Negative) Microbiology - Last 24 Hours (Table) 08/15/17 21:50 Urine Culture - Preliminary Urine,Voided Thrombosis Risk Factor Assmnt - Choose All That Apply Any of the Below Risk Factors Present?: Yes Each Factor Represents 1 point: Obesity (BMI >25) Other Risk Factors: Yes Each Risk Factor Represents 2 Points: Age 61-74 years, Malignancy Thrombosis Risk Factor Assessment Total Risk Factor Score: 5 Thrombosis Risk Factor Assessment Level: High Risk Assessment and Plan Assessment: -Of unknown origin, possible sepsis. -Pancreatic cancer, on chemotherapy. -Status post 3 stents in the biliary system, history of ERCP -Pancytopenia, history of recent chemotherapy 1 week prior to admission Plan: Patient presents with fever of one-day duration, similar to problems about 2 months ago. Continue with the same and treatment. Continue with symptomatic treatment. Temperature could be controlled with ibuprofen. Patient was started on Zosyn. Will call infectious disease specialist Dr. Spivey as he saw the patient last time. Call oncology consult with Dr. Oliver. The at bedside requested GI consult with , was incidental known to the patient. Continue with IV fluids and antibiotics. UA and [place] were unremarkable for infection. Patient has no diarrhea. Port-A-Cath in place in the left upper chest. Continue with DVT and GI prophylaxis. Further recommendation based on the clinical course. Prognosis is guarded. CODE STATUS discussed with the patient and he confirms to me he is DO NOT RESUSCITATE/DO NOT RESUSCITATE
[2017-08-16] MEDS ORDERED: PROCHLORPERAZINE 10 MG TAB PO PRN (15:31)
[2017-08-16] MEDS: guaiFENesin 600 MG TABLET.ER PO SCH (16:53)
[2017-08-16] MEDS: DOCUSATE 100 MG CAP PO SCH (16:53)
[2017-08-16] MEDS: URSODIOL 300 MG CAP PO SCH (16:54)
--- NOTE | 2017-08-16 20:02 | P.CONS ---
History of Present Illness - Reason for Consult Consult date: 08/16/17 on treatment for pancreatic cancer Requesting physician: Julio Cunningham - Chief Complaint fever - History of Present Illness Please refer to medical consult dated 06/02/17 as nothing has changed, pt continues on abraxane and gemzar. Pt brought to hospital by after persistent fevers x 1 week, as high as 103F, he was initially able to control with tylenol then only motrin would reduce the fever, fevers persisted and remaind significantly >101F, on admit lactic acid was elevated, so were LFTs, today all are much better, his Hgb did drop, suspect due to a degree of dehydration on admit and dilution from fluids. Pt states feeling really good at this moment, denies oral irritation, nausea, slight cough, no abd pain, dysuria, hematuria, diarrhea, constipation, black or bloody stool, swelling or pain to report. Review of Systems 10 point ROS as stated in HPI Past Medical History Past Medical History: Cancer, Thyroid Disorder Additional Past Medical History / Comment(s): Testicular cancer, pancreatic cancer (diagnosed February 2015), sepsis, hypothyroid, upper/lower bridges History of Any Multi-Drug Resistant Organisms: None Reported Past Surgical History: Hernia Repair, Tonsillectomy Additional Past Surgical History / Comment(s): 1979 left testicle + lymph nodes removed along spine, right inguinal hernia repair x3 with mesh, hemorrhoidectomy (2011), colonoscopy (Jan 2015), titanium stent in pancreas (2015 @ [facility]), restent in 01/2016 ([facility]), power port. Past Anesthesia/Blood Transfusion Reactions: No Reported Reaction Past Psychological History: No Psychological Hx Reported Additional Psychological History / Comment(s): Pt resides with his spouse and son. There is a cat in the household. Pt is independent. 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 He lives at home with his and son. There is a cat in the home. No recent travel or service. Past Drug Use History: None Reported Additional Drug Use History / Comment(s): . - Past Family History Mother Family Medical History: Cancer Additional Family Medical History / Comment(s): Cancer x 3, lived until age 89. Sister(s) Family Medical History: Cancer Additional Family Medical History / Comment(s): Breast cancer. Brother(s) Family Medical History: Cancer Father Family Medical History: Cancer Additional Family Medical History / Comment(s): Colon/bladder cancer x 3, at 94 Medications and Allergies Home Medications Medication Instructions Recorded Confirmed Type Docusate [Colace] 100 mg PO BID 11/19/15 08/16/17 History Fluticasone Nasal [place] [Flonase 2 spray EA NOSTRIL DAILY 05/23/16 08/16/17 History Nasal [place]] Omeprazole [PriLOSEC] 20 mg PO DAILY 10/04/16 08/16/17 History Ursodiol 300 mg PO BID 03/16/17 08/16/17 History Levothyroxine Sodium [Synthroid] 100 mcg PO DAILY 06/01/17 08/16/17 History Prochlorperazine [Compazine] 10 mg PO Q6H PRN 06/18/17 08/16/17 History guaiFENesin [Mucinex] 600 mg PO BID 06/18/17 08/16/17 History Nystatin 100,000 unit PO Q6H PRN 08/16/17 08/16/17 History Allergies Allergy/AdvReac Type Severity Reaction Status Date / Time morphine Allergy Unknown Verified 08/16/17 08:00 Physical Exam Vitals: Vital Signs Temp Pulse Pulse Resp BP BP Pulse Ox 08/16/17 16:55 99.0 F 08/16/17 16:00 88 16 08/16/17 15:13 97.1 F L 88 16 133/71 97 08/16/17 10:55 98 08/16/17 08:00 94 16 08/16/17 05:52 101.4 F H 08/16/17 05:31 100.7 F H 08/16/17 04:45 99.2 F 94 16 143/80 100 08/16/17 01:30 16 08/16/17 00:27 97.5 F L 90 16 143/71 97 08/15/17 23:38 98.6 F 95 16 108/64 97 08/15/17 21:58 100.6 F H 105 H 16 98/63 95 08/15/17 20:24 101.5 F H Intake and Output 08/16/17 08/16/17 08/16/17 06:59 14:59 22:59 Intake Total 1500 Balance 1500 Intake: Intake, IV Titration 1100 Amount Piperacillin-Tazobactam 3 50 .375 gm In Dextrose/Water 1 50ml.bag @ 12.5 mls/hr IVPB Q8HR [facility] Rx#: [id number] Sodium Chloride 0.9% 1, 1050 000 ml @ 150 mls/hr IV . Q6H40M [facility] Rx#:[id number] Oral 400 Other: # Voids 1 Weight 86.183 kg - Constitutional General appearance: average body habitus, cooperative, no acute distress - EENT Eyes: anicteric sclerae, EOMI, normal appearance ENT: normal oropharynx - Neck Neck: no lymphadenopathy - Respiratory Respiratory: bilateral: CTA - Cardiovascular Rhythm: regular Heart sounds: normal: S1, S2 Abnormal Heart Sounds: no systolic murmur, no diastolic murmur, no rub, no S3 Gallop, no S4 Gallop, no click, no other leg Peripheral Edema: bilateral: None - Gastrointestinal General gastrointestinal: no absent bowel sounds, no decreased bowel sounds, no distended, no hepatomegaly, no hyperactive bowel sounds, normal bowel sounds, no organomegaly, no rigid, no scaphoid, soft, no splenomegaly, no tenderness, no umbilical hernia, no ventral hernia - Integumentary Integumentary: normal - Neurologic Neurologic: CNII-XII intact - Musculoskeletal Musculoskeletal: strength equal bilaterally - Psychiatric Psychiatric: A&O x's 3, appropriate affect, intact judgment & insight Results CBC & Chem 7: 08/16/17 08:42 08/16/17 08:42 Labs: Abnormal Lab Results - Last 24 Hours (Table) 08/15/17 08/15/17 08/15/17 Range/Units 20:10 20:10 20:10 WBC (3.8-10.6) k/uL RBC 3.87 L (4.30-5.90) m/uL Hgb 10.2 L (13.0-17.5) gm/dL Hct 30.5 L (39.0-53.0) % MCV 78.9 L (80.0-100.0) fL RDW 20.7 H (11.5-15.5) % Plt Count (150-450) k/uL Lymphocytes # 0.4 L (1.0-4.8) k/uL Lymphocytes # (Manual) (1.0-4.8) k/uL Haptoglobin (31.2-198.0) mg/dL Sodium 130 L (137-145) mmol/L Chloride 96 L (98-107) mmol/L Carbon Dioxide (22-30) mmol/L Glucose 111 H (74-99) mg/dL Plasma Lactic Acid Paddy 2.3 H* (0.7-2.0) mmol/L Calcium (8.4-10.2) mg/dL AST 60 H (17-59) U/L Alkaline Phosphatase 149 H (38-126) U/L Total Protein 5.8 L (6.3-8.2) g/dL Albumin 3.3 L (3.5-5.0) g/dL Urine Protein (Negative) 08/15/17 08/15/17 08/16/17 Range/Units 20:10 21:50 08:42 WBC 3.0 L (3.8-10.6) k/uL RBC 3.23 L (4.30-5.90) m/uL Hgb 8.1 L D (13.0-17.5) gm/dL Hct 26.0 L (39.0-53.0) % MCV (80.0-100.0) fL RDW 20.4 H (11.5-15.5) % Plt Count 121 L (150-450) k/uL Lymphocytes # (1.0-4.8) k/uL Lymphocytes # (Manual) 0.24 L (1.0-4.8) k/uL Haptoglobin 296.0 H (31.2-198.0) mg/dL Sodium (137-145) mmol/L Chloride (98-107) mmol/L Carbon Dioxide (22-30) mmol/L Glucose (74-99) mg/dL Plasma Lactic Acid Paddy (0.7-2.0) mmol/L Calcium (8.4-10.2) mg/dL AST (17-59) U/L Alkaline Phosphatase (38-126) U/L Total Protein (6.3-8.2) g/dL Albumin (3.5-5.0) g/dL Urine Protein Trace H (Negative) 08/16/17 Range/Units 08:42 WBC (3.8-10.6) k/uL RBC (4.30-5.90) m/uL Hgb (13.0-17.5) gm/dL Hct (39.0-53.0) % MCV (80.0-100.0) fL RDW (11.5-15.5) % Plt Count (150-450) k/uL Lymphocytes # (1.0-4.8) k/uL Lymphocytes # (Manual) (1.0-4.8) k/uL Haptoglobin (31.2-198.0) mg/dL Sodium 133 L (137-145) mmol/L Chloride (98-107) mmol/L Carbon Dioxide 20 L (22-30) mmol/L Glucose 131 H (74-99) mg/dL Plasma Lactic Acid Paddy (0.7-2.0) mmol/L Calcium 7.8 L (8.4-10.2) mg/dL AST (17-59) U/L Alkaline Phosphatase (38-126) U/L Total Protein 4.6 L (6.3-8.2) g/dL Albumin 2.4 L (3.5-5.0) g/dL Urine Protein (Negative) Microbiology - Last 24 Hours (Table) 08/15/17 21:50 Urine Culture - Preliminary Urine,Voided Chest x-ray: report reviewed Assessment and Plan (1) Fever Narrative/Plan: Pt was having fever at home only reduced with motrin, he had fever on admit, many labs were abnormal on admit (pt gets biliary stent infections/blockages frequqntly) but those abnormal labs are better today. ID is to see pt, await recommendations. Current Visit: Yes Status: Acute Priority: High Code(s): R50.9 - FEVER, UNSPECIFIED SNOMED Code(s): 481846000 (2) Pancreatic cancer Narrative/Plan: Pt continues on abraxane and gemzar treatment, doing rather well, he is due for treatment f/u [facility] in a few weeks, will keep that plan as it. Pt did miss lass day of this cycle, no plans to make that up at this time. Current Visit: No Status: Chronic Priority: Medium Code(s): C25.9 - MALIGNANT NEOPLASM OF PANCREAS, UNSPECIFIED SNOMED Code(s): 219766437
[2017-08-16] MEDS: IBUPROFEN 600 MG TAB PO PRN (20:44)
--- NOTE | 2017-08-16 21:46 | CONS ---
CONSULTATION DATE OF DICTATION: 08/16/2017 REQUESTING PHYSICIAN: Dr. Shelby Styles. REASON FOR CONSULTATION: History of cholangiocarcinoma, presents with fever. HISTORY OF PRESENT ILLNESS: The patient is a 67-year-old pleasant white male who is known to me from his multiple previous office visits. 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 He had multiple hospitalizations over the last 2 years related to biliary sepsis/cholangitis requiring multiple ERCPs with metal stent placement. Last ERCP with placement was performed in November of 2016 at [facility]. Since then he had progressive liver metastases for which he follows with Dr. Dominguez. He has been receiving chemotherapy in January of 2017 and recently about 2 months ago the chemotherapy regimen has been changed. In the last 3 months he was admitted to hospital several times with fever chills/biliary sepsis requiring multiple courses of antibiotics. He is receiving his 2nd cycle of chemotherapy and yesterday started having fever and chills with a temperature of 103.5 and became extremely weak, tired and hence he came into the emergency room and subsequently started on broad-spectrum antibiotics. transaminases and this morning his LFTs are all within normal limits. He is feeling much better. He denies any abdominal pain. Reports no nausea, vomiting. 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 PAST SURGICAL HISTORY: Hernia repair, tonsillectomy, right inguinal hernia repair, left orchiectomy, multiple ERCPs, with stent placement November of 2016, repeat ERCP in February of 2017 all done at [facility]. MEDICATIONS: At home include Colace, Flonase, Prilosec, , Synthroid, Compazine, Mucinex. FAMILY HISTORY: Mother has some kind of cancer. Sister had breast cancer. Father had colon and bladder cancer. REVIEW OF SYSTEMS: CARDIOPULMONARY: No chest pain, shortness of breath. GENITOURINARY: No dysuria or hematuria. MUSCULOSKELETAL: Unremarkable. SKIN: Unremarkable. ENDOCRINE: Unremarkable. PSYCHIATRIC: Unremarkable. NEUROLOGICAL: Unremarkable. ENT: Vision unremarkable. CONSTITUTIONAL: No recent weight loss, fever or chills, night sweats. PHYSICAL EXAMINATION: T-max was 103.5 this morning and it is 101.4, pulse 94, blood pressure 143/88. HEENT: Examination unremarkable. Conjunctivae pink. Sclerae anicteric. Oral cavity no lesions. NECK: No jugular venous distention or lymph node enlargement. Chest was clear to auscultation. HEART: Regular rate and rhythm. ABDOMEN: Soft, it was nontender, nondistended. Bowel sounds are positive. No organomegaly. EXTREMITIES: No pedal edema. SKIN: No rashes. NEUROLOGIC: Alert and oriented x3. No focal deficits. LAB DATA: AST and ALT are within normal limits. T-bili and alkaline phosphatase are normal. WBC 4.2, hemoglobin 10.2, platelets 170,000. Plasma lactic acid was 2.3 and this morning was 1.3. IMPRESSION: This is a patient who was admitted to the hospital with fever for the last 2 days duration and multiple hospitalizations over the last few months with recurrent biliary sepsis/cholangitis related to stent occlusion. His last ERCP with metal stent placement was performed in November of 2016, but he had multiple hospitalizations in February with biliary sepsis. He did have a repeat ERCP at [facility] in February for stent occlusion. At this time . Since then he has been maintained on 300 mg twice daily. Currently he has fever, but with normal serum transaminases. This may be related to either chemotherapy or from other source. Doubt biliary sepsis at this time given the normal serum transaminases. He is on broad- spectrum antibiotics and clinically the patient is feeling much better. RECOMMENDATIONS: 1. Continue with broad-spectrum antibiotics. 2. Repeat CBC and CMP in the morning. 3. As long as serum transaminases are within normal limits, we can continue with the current antibiotic regimen and consider ID consultation. Thank you for this consultation. MMODL / IJN: [id number] /
--- NOTE | 2017-08-16 22:55 | P.CONS ---
History of Present Illness - Reason for Consult Consult date: 08/16/17 - History of Present Illness This is a 66-year-old male who has a past medical history significant for pancreatic cancer currently on chemotherapy under the care of Dr. Dominguez diagnosed in February 2015. He is on Gemzar for 3 weeks and off 1 week. He had a recent hospitalization March 01 through March 04 with obstruction of the biliary tract. He was discharged home on Levaquin for 7 days. As antibiotic therapy completed he again became ill and febrile and presented back to the hospital. He can have evidence of sepsis and was placed on antibiotic therapy. He was having some improvement but then had a sudden increase of his total bilirubin and constantly was transferred to his hepatology Center at [facility] for evaluation of his pancreatic stent. This occurred and there was evidence of some blockage in the stent was recannulated and he's done well since. He is now back on a course of chemotherapy receiving 3 weeks on 1 week off. He's been having some alterations of his temperature and an ongoing basis thought to be due to the chemotherapy. He is feeling relatively poorly. He was due for further chemotherapy but spiked a high-grade fever over 103 and calcium was brought into the emergency center and admitted admitted. Antibiotic therapy was initiated based on his prior cultures and concerns to obstruction of the biliary tract from his stent that was recently manipulated and recannulated but not replaced. He is feeling the best he has in quite some time actually today. His fevers improved with the Motrin and his appetite improved and he relates that he's not receive chemo he is definitely feeling a bit better. Cultures are processing negative so far. The bilirubin peaked at 0.7 now at 0.4. The alk phos peaked at 149 now at 105. AST ALT are generally normal. Review of Systems HEENT:Denies headache or acute visual change. Denies sinus or mouth discomforts. Denies neck stiffness or pain. Denies significant oral cavity pain. Denies difficulty on swallowing. Lungs: Denies significant shortness of breath, cough, sputum production, or hemoptysis. Cardiovascular: Denies significant shortness of breath, chest pain, chest wall pain, orthopnea, dyspnea on exertion, syncope Gastrointestinal: As per the HPI Musculoskeletal: denies significant myalgias or arthralgias. No new joint swelling. Denies new back pain. Skin: Denies new rash or lesions. No new ulcers or wounds are related.. Neuro: Denies headache or visual change. Denies any new onset weakness or difficulty with ambulation. Denies falls or seizures. Psychiatric:Denies anxiety or depression. Endocrine: Denies significant fatigue, denies significant weight loss or weight gain. Past Medical History Past Medical History: Cancer, Thyroid Disorder Additional Past Medical History / Comment(s): Testicular cancer, pancreatic cancer (diagnosed February 2015), sepsis, hypothyroid, upper/lower bridges History of Any Multi-Drug Resistant Organisms: None Reported Past Surgical History: Hernia Repair, Tonsillectomy Additional Past Surgical History / Comment(s): 1979 left testicle + lymph nodes removed along spine, right inguinal hernia repair x3 with mesh, hemorrhoidectomy (2011), colonoscopy (Jan 2015), titanium stent in pancreas (2015 @ [facility]), restent in 01/2016 ([facility]), power port. Past Anesthesia/Blood Transfusion Reactions: No Reported Reaction Past Psychological History: No Psychological Hx Reported Additional Psychological History / Comment(s): Pt resides with his spouse and son. There is a cat in the household. Pt is independent. 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 He lives at home with his and son. There is a cat in the home. No recent travel or service. Past Drug Use History: None Reported Additional Drug Use History / Comment(s): . - Past Family History Mother Family Medical History: Cancer Additional Family Medical History / Comment(s): Cancer x 3, lived until age 89. Sister(s) Family Medical History: Cancer Additional Family Medical History / Comment(s): Breast cancer. Brother(s) Family Medical History: Cancer Father Family Medical History: Cancer Additional Family Medical History / Comment(s): Colon/bladder cancer x 3, at 94 Medications and Allergies Home Medications and Allergies Comment(s): Current Medications Acetaminophen (Tylenol Tab) 650 mg PO Q6HR PRN PRN Reason: Fever and/ or Pain Last Admin: 08/16/17 16:53 Dose: 650 mg Docusate Sodium (Colace) 100 mg PO BID [facility] Last Admin: 08/16/17 16:53 Dose: 100 mg Fluticasone Propionate (Flonase Nasal [place]) 2 spray EA NOSTRIL DAILY [facility] Guaifenesin (Mucinex) 600 mg PO BID [facility] Last Admin: 08/16/17 16:53 Dose: 600 mg Piperacillin/Tazobactam/ (Dextrose 3.375 gm/ IV Solution) 50 mls @ 12.5 mls/hr IVPB Q8HR [facility] Last Admin: 08/16/17 15:23 Dose: 12.5 mls/hr Sodium Chloride (Saline 0.9%) 1,000 mls @ 150 mls/hr IV .Q6H40M [facility] Last Admin: 08/16/17 15:22 Dose: 150 mls/hr Ibuprofen (Motrin) 600 mg PO TID PRN PRN Reason: Fever Last Admin: 08/16/17 20:44 Dose: 600 mg Levothyroxine Sodium (Synthroid) 100 mcg PO DAILY@0630 [facility] Nystatin (Mycostatin Oral Susp) 100,000 unit PO Q6H PRN PRN Reason: THRUSH Pantoprazole Sodium (Protonix) 40 mg PO AC-BRKFST [facility] Prochlorperazine Maleate (Compazine) 10 mg PO Q6H PRN PRN Reason: Nausea Ursodiol (Actigall) 300 mg PO BID [facility] Last Admin: 08/16/17 16:54 Dose: 300 mg Home Medications Medication Instructions Recorded Confirmed Type Docusate [Colace] 100 mg PO BID 11/19/15 08/16/17 History Fluticasone Nasal [place] [Flonase 2 spray EA NOSTRIL DAILY 05/23/16 08/16/17 History Nasal [place]] Omeprazole [PriLOSEC] 20 mg PO DAILY 10/04/16 08/16/17 History Ursodiol 300 mg PO BID 03/16/17 08/16/17 History Levothyroxine Sodium [Synthroid] 100 mcg PO DAILY 06/01/17 08/16/17 History Prochlorperazine [Compazine] 10 mg PO Q6H PRN 06/18/17 08/16/17 History guaiFENesin [Mucinex] 600 mg PO BID 06/18/17 08/16/17 History Nystatin 100,000 unit PO Q6H PRN 08/16/17 08/16/17 History Allergies Allergy/AdvReac Type Severity Reaction Status Date / Time morphine Allergy Unknown Verified 08/16/17 08:00 Physical Exam Vitals: Vital Signs Temp Pulse Pulse Resp BP BP Pulse Ox 08/16/17 21:00 99.4 F 81 16 146/73 99 08/16/17 16:55 99.0 F 08/16/17 16:00 88 16 08/16/17 15:13 97.1 F L 88 16 133/71 97 08/16/17 10:55 98 08/16/17 08:00 94 16 08/16/17 05:52 101.4 F H 08/16/17 05:31 100.7 F H 08/16/17 04:45 99.2 F 94 16 143/80 100 08/16/17 01:30 16 08/16/17 00:27 97.5 F L 90 16 143/71 97 08/15/17 23:38 98.6 F 95 16 108/64 97 Intake and Output 08/16/17 08/16/17 08/16/17 06:59 14:59 22:59 Intake Total 1500 Balance 1500 Intake: Intake, IV Titration 1100 Amount Piperacillin-Tazobactam 3 50 .375 gm In Dextrose/Water 1 50ml.bag @ 12.5 mls/hr IVPB Q8HR [facility] Rx#: [id number] Sodium Chloride 0.9% 1, 1050 000 ml @ 150 mls/hr IV . Q6H40M [facility] Rx#:[id number] Oral 400 Other: # Voids 1 2 Weight 86.183 kg Pleasant 67-year-old male who's had some weight loss since last evaluation but does not appear to be acutely ill at this time., Actually this up as he's felt in some time. HEENT: Anicteric conjunctiva are pink and moist nasal mucosa grossly intact without significant lesions, there is no thrush. Neck: The neck is supple without significant lymphadenopathy or thyromegaly. Lungs: Good bilateral air entry without significant crackles or wheezing. There is no significant bronchial sounds. There is no egophony or dullness. Heart: Regular rate and rhythm with an audible S1-S2, no S3 no S4. There is no significant murmur click or rub, PMI was nondisplaced. Abdomen: Positive bowel sounds soft and nontender without palpable masses or organomegaly. There was no guarding or rebound. Extremities: The upper extremities have excellent pulses they are symmetric, no significant petechiae or telangiectasia. No splinter hemorrhages were noted. The lower extremities are free from significant edema. The peripheral pulses were 2+ and symmetric. Neuro: Awake alert oriented to person place and time. There are no acute new gross focal sensory motor deficits. Results CBC & Chem 7: 08/16/17 08:42 08/16/17 08:42 Labs: Abnormal Lab Results - Last 24 Hours (Table) 08/15/17 08/16/17 08/16/17 Range/Units 20:10 08:42 08:42 WBC 3.0 L (3.8-10.6) k/uL RBC 3.23 L (4.30-5.90) m/uL Hgb 8.1 L D (13.0-17.5) gm/dL Hct 26.0 L (39.0-53.0) % RDW 20.4 H (11.5-15.5) % Plt Count 121 L (150-450) k/uL Lymphocytes # (Manual) 0.24 L (1.0-4.8) k/uL Haptoglobin 296.0 H (31.2-198.0) mg/dL Sodium 133 L (137-145) mmol/L Carbon Dioxide 20 L (22-30) mmol/L Glucose 131 H (74-99) mg/dL Calcium 7.8 L (8.4-10.2) mg/dL Total Protein 4.6 L (6.3-8.2) g/dL Albumin 2.4 L (3.5-5.0) g/dL Microbiology - Last 24 Hours (Table) 08/15/17 20:10 Blood Culture - Preliminary Blood No Growth after 24 hours 08/15/17 21:50 Urine Culture - Preliminary Urine,Voided Laboratory Results WBC 3.0 k/uL (3.8-10.6) L 08/16/17 08:42 RBC 3.23 m/uL (4.30-5.90) L 08/16/17 08:42 Hgb 8.1 gm/dL (13.0-17.5) L D 08/16/17 08:42 Hct 26.0 % (39.0-53.0) L 08/16/17 08:42 MCV 80.4 fL (80.0-100.0) 08/16/17 08:42 MCH 25.2 pg (25.0-35.0) 08/16/17 08:42 MCHC 31.3 g/dL (31.0-37.0) 08/16/17 08:42 RDW 20.4 % (11.5-15.5) H 08/16/17 08:42 Plt Count 121 k/uL (150-450) L 08/16/17 08:42 Neutrophils % 76 % 08/15/17 20:10 Neutrophils % (Manual) 65 % 08/16/17 08:42 Lymphocytes % 10 % 08/15/17 20:10 Lymphocytes % (Manual) 8 % 08/16/17 08:42 Monocytes % 9 % 08/15/17 20:10 Monocytes % (Manual) 27 % 08/16/17 08:42 Eosinophils % 1 % 08/15/17 20:10 Basophils % 1 % 08/15/17 20:10 Neutrophils # 3.2 k/uL (1.3-7.7) 08/15/17 20:10 Neutrophils # (Manual) 1.95 k/uL (1.3-7.7) 08/16/17 08:42 Lymphocytes # 0.4 k/uL (1.0-4.8) L 08/15/17 20:10 Lymphocytes # (Manual) 0.24 k/uL (1.0-4.8) L 08/16/17 08:42 Monocytes # 0.4 k/uL (0-1.0) 08/15/17 20:10 Monocytes # (Manual) 0.81 k/uL (0-1.0) 08/16/17 08:42 Eosinophils # 0.0 k/uL (0-0.7) 08/15/17 20:10 Basophils # 0.0 k/uL (0-0.2) 08/15/17 20:10 Nucleated RBCs 0 /100 WBC (0-0) 08/16/17 08:42 Manual Slide Review Performed 08/16/17 08:42 Hypochromasia Moderate 08/16/17 08:42 Poikilocytosis (manual Present 08/16/17 08:42 Anisocytosis Moderate 08/16/17 08:42 Microcytosis Slight 08/16/17 08:42 Haptoglobin 296.0 mg/dL (31.2-198.0) H 08/15/17 20:10 Sodium 133 mmol/L (137-145) L 08/16/17 08:42 Potassium 4.4 mmol/L (3.5-5.1) 08/16/17 08:42 Chloride 104 mmol/L (98-107) 08/16/17 08:42 Carbon Dioxide 20 mmol/L (22-30) L 08/16/17 08:42 Anion Gap 9 mmol/L 08/16/17 08:42 BUN 13 mg/dL (9-20) 08/16/17 08:42 Creatinine 0.68 mg/dL (0.66-1.25) 08/16/17 08:42 Est GFR (CKD-EPI)AfAm >90 (>60 ml/min/1.73 sqM) 08/16/17 08:42 Est GFR (CKD-EPI)NonAf >90 (>60 ml/min/1.73 sqM) 08/16/17 08:42 Glucose 131 mg/dL (74-99) H 08/16/17 08:42 Lactic Ac Sepsis Rflx Y 08/15/17 20:47 Plasma Lactic Acid Paddy 1.3 mmol/L (0.7-2.0) 08/16/17 02:10 Calcium 7.8 mg/dL (8.4-10.2) L 08/16/17 08:42 Total Bilirubin 0.4 mg/dL (0.2-1.3) 08/16/17 08:42 AST 36 U/L (17-59) 08/16/17 08:42 ALT 52 U/L (21-72) 08/16/17 08:42 Alkaline Phosphatase 105 U/L (38-126) 08/16/17 08:42 Lactate Dehydrogenase 557 U/L (313-618) 08/15/17 20:10 Total Protein 4.6 g/dL (6.3-8.2) L 08/16/17 08:42 Albumin 2.4 g/dL (3.5-5.0) L 08/16/17 08:42 Urine Color Yellow 08/15/17 21:50 Urine Appearance Clear (Clear) 08/15/17 21:50 Urine pH 5.5 (5.0-8.0) 08/15/17 21:50 Ur Specific [place] 1.018 (1.001-1.035) 08/15/17 21:50 Urine Protein Trace (Negative) H 08/15/17 21:50 Urine Glucose (UA) Negative (Negative) 08/15/17 21:50 Urine Ketones Negative (Negative) 08/15/17 21:50 Urine Blood Negative (Negative) 08/15/17 21:50 Urine Nitrite Negative (Negative) 08/15/17 21:50 Urine Bilirubin Negative (Negative) 08/15/17 21:50 Urine Urobilinogen 2.0 mg/dL (<2.0) 08/15/17 21:50 Ur Leukocyte Esterase Negative (Negative) 08/15/17 21:50 Microbiology 08/15/17 20:10 Blood Blood Culture - Preliminary No Growth after 24 hours 08/15/17 21:50 Urine,Voided Urine Culture - Preliminary Assessment and Plan (1) Anahy-ampullary carcinoma Current Visit: No Status: Acute Code(s): C24.8 - MALIGNANT NEOPLASM OF OVERLAPPING SITES OF BILIARY TRACT SNOMED Code(s): 408771491 (2) Pancreatic mass Current Visit: No Status: Acute Priority: High Code(s): K86.9 - DISEASE OF PANCREAS, UNSPECIFIED SNOMED Code(s): 497438547 (3) Cholangitis, recurrent Narrative/Plan: 67-year-old male that has a history of the periampullary pancreatic cancer who's been followed closely at [facility] and has been receiving chemotherapy, currently 3 weeks on 1 week off. He was due for chemotherapy today but he developed increasing fever and was a bit ill and constantly was brought to the hospital. Antibiotics have been started, chemotherapy was held and he is being monitored. Fortunately his total bilirubin increased minimally and is now are the improving. His alkaline phosphatase as well as his AST and ALT are also improved. With this it is less likely that he has a partially obstructed biliary stent and then in the past he would just have rapidly increasing alk phos and total bilirubin. A mild infection related to his recent chemotherapy seems to be the most likely etiology. Antibiotic therapy is being utilized with piperacillin/tazobactam that was tolerated quite well in the past. All cultures are pending and negative so far. Blood work will be monitored and there is a potential that he would be treated with outpatient intravenous antibiotic therapy over the next week or so. He would then have this repeated scans from his oncologist and then be followed in the oncologist office for an overall plan. The patient did voices of the best he has felt in some time and relates it to not receiving chemotherapy. It is unclear at this time what his overall plan will be, his however would certainly like to have further chemotherapy given. Current Visit: No Status: Acute Code(s): K83.0 - CHOLANGITIS SNOMED Code(s ): 90284141 (4) Fever Current Visit: Yes Status: Acute Priority: High Code(s): R50.9 - FEVER, UNSPECIFIED SNOMED Code(s): 054191502
[2017-08-17] MEDS: HEPARIN SODIUM,PORCINE 5,000 UNIT/ML 1 ML VIAL SQ SCH ×4 (00:27→20:37)
[2017-08-17] MEDS: SODIUM CHLORIDE 0.9% 1,000 ML IV SCH ×4 (04:49→23:05)
[2017-08-17] MEDS: IBUPROFEN 600 MG TAB PO PRN ×2 (04:49→14:49)
[2017-08-17] MEDS: LEVOTHYROXINE 100 MCG TAB PO SCH (04:50)
[2017-08-17] MEDS: PIPERACILLIN-TAZOBACTAM 3.375 GM in DEXTROSE/WATER 1 50ML.BAG IVPB SCH ×3 (08:01→23:32)
[2017-08-17] MEDS: DOCUSATE 100 MG CAP PO SCH ×2 (08:02→20:41)
[2017-08-17] MEDS: URSODIOL 300 MG CAP PO SCH ×2 (08:02→20:41)
[2017-08-17] MEDS: FLUTICASONE 50MCG/SPRAY NASAL 16GM EA NOSTRIL SCH (08:02)
[2017-08-17] MEDS: PANTOPRAZOLE 40 MG TABLET PO SCH (08:02)
[2017-08-17] MEDS: guaiFENesin 600 MG TABLET.ER PO SCH ×2 (08:02→20:41)
[2017-08-17 08:44] LABS: ALT 46 U/L (21-72); AST 32 U/L (17-59); Albumin 2.4 g/dL (3.5-5.0); Alkaline Phosphatase 100 U/L (38-126); Anion Gap 5 mmol/L; Blood Urea Nitrogen 9 mg/dL (9-20); Calcium 8.1 mg/dL (8.4-10.2); Carbon Dioxide 24 mmol/L (22-30); Chloride 107 mmol/L (98-107); Glucose 79 mg/dL (74-99); Potassium 4.2 mmol/L (3.5-5.1); Sodium 136 mmol/L (137-145); Total Bilirubin 0.4 mg/dL (0.2-1.3); Total Protein 4.6 g/dL (6.3-8.2)
[2017-08-17 09:14] LABS: Anisocytosis Moderate; HCT 26.9 % (39.0-53.0); HGB 8.3 gm/dL (13.0-17.5); Hypochromasia Moderate; MCH 25.2 pg (25.0-35.0); MCHC 30.9 g/dL (31.0-37.0); MCV 81.7 fL (80.0-100.0); Mean Platelet Volume 7.2; Microcytosis Slight; Platelet Count 132 k/uL (150-450); RBC 3.29 m/uL (4.30-5.90); WBC 3.1 k/uL (3.8-10.6)
--- NOTE | 2017-08-17 10:10 | P.PN ---
Subjective Progress Note Date: 08/17/17 Principal diagnosis: Fever No fevers last night. Feels well. LFTs within normal limits. Denies abdominal pain. Objective - Vital Signs Vital signs: Vital Signs Temp 97.4 F L 08/17/17 07:43 Pulse 80 08/17/17 07:45 Resp 16 08/17/17 07:43 BP 136/83 08/17/17 07:43 Pulse Ox 98 08/17/17 07:43 Intake & Output 08/16/17 08/17/17 08/17/17 18:59 06:59 18:59 Intake Total 1500 300 Balance 1500 300 Intake: Intake, IV Titration 1100 Amount Piperacillin-Tazobactam 3 50 .375 gm In Dextrose/Water 1 50ml.bag @ 12.5 mls/hr IVPB Q8HR [facility] Rx#: [id number] Sodium Chloride 0.9% 1, 1050 000 ml @ 150 mls/hr IV . Q6H40M [facility] Rx#:[id number] Oral 400 300 Other: # Voids 1 - Exam General appearance: The patient is alert, oriented, in no acute distress. HET: Head is normocephalic and atraumatic. Pupils are equal and reactive. Oropharynx is clear without lesions. Neck: Supple without lymphadenopathy. Trachea midline. Heart: S1 S2. Regular rate and rhythm. Lungs: No crackles or wheezes are heard. Abdomen: Soft, nontender, nondistended with bowel sounds. No peritoneal signs. No palpable organomegaly or masses. Extremities: Normal skin color and turgor. No cyanosis, rash, ulceration, clubbing, or edema. Radial and pedal pulses are 2/4 bilaterally. Neurological: No focal deficits. Strength and sensation are grossly intact. - Labs CBC & Chem 7: 08/17/17 07:27 08/17/17 07:27 Labs: Abnormal Lab Results - Last 24 Hours (Table) 08/15/17 08/16/17 08/16/17 Range/Units 20:10 08:42 08:42 WBC (3.8-10.6) k/uL RBC (4.30-5.90) m/uL Hgb (13.0-17.5) gm/dL Hct (39.0-53.0) % MCHC (31.0-37.0) g/dL RDW (11.5-15.5) % Plt Count (150-450) k/uL Lymphocytes # (Manual) 0.24 L (1.0-4.8) k/uL Haptoglobin 296.0 H (31.2-198.0) mg/dL Sodium 133 L (137-145) mmol/L Carbon Dioxide 20 L (22-30) mmol/L Glucose 131 H (74-99) mg/dL Calcium 7.8 L (8.4-10.2) mg/dL Total Protein 4.6 L (6.3-8.2) g/dL Albumin 2.4 L (3.5-5.0) g/dL 08/17/17 08/17/17 Range/Units 07:27 07:27 WBC 3.1 L (3.8-10.6) k/uL RBC 3.29 L (4.30-5.90) m/uL Hgb 8.3 L (13.0-17.5) gm/dL Hct 26.9 L (39.0-53.0) % MCHC 30.9 L (31.0-37.0) g/dL RDW 21.0 H (11.5-15.5) % Plt Count 132 L (150-450) k/uL Lymphocytes # (Manual) (1.0-4.8) k/uL Haptoglobin (31.2-198.0) mg/dL Sodium 136 L (137-145) mmol/L Carbon Dioxide (22-30) mmol/L Glucose (74-99) mg/dL Calcium 8.1 L (8.4-10.2) mg/dL Total Protein 4.6 L (6.3-8.2) g/dL Albumin 2.4 L (3.5-5.0) g/dL Microbiology - Last 24 Hours (Table) 08/15/17 20:10 Blood Culture - Preliminary Blood No Growth after 24 hours 08/15/17 21:50 Urine Culture - Preliminary Urine,Voided Assessment and Plan (1) Fever Current Visit: Yes Status: Acute Priority: High Code(s): R50.9 - FEVER, UNSPECIFIED SNOMED Code(s): 862213365 (2) Pancreatic cancer Narrative/Plan: Presently receiving chemotherapy Current Visit: No Status: Chronic Priority: Medium Code(s): C25.9 - MALIGNANT NEOPLASM OF PANCREAS, UNSPECIFIED SNOMED Code(s): 404912546 Plan: 1. Continue supportive measures. Considering LFTs within normal limits fevers improving ERCP not planned at this time. Continue with antibiotics. Diet as tolerated. Assessment and plan a care discussed with Dr. Taveras
[2017-08-17 11:06] LABS: Eosinophils # (M) 0.16 k/uL (0-0.7); Lymphocytes # (M) 0.12 k/uL (1.0-4.8); Monocytes # (M) 0.56 k/uL (0-1.0); Neutrophils # (M) 2.26 k/uL (1.3-7.7); Neutrophils % (M) 73 %; Nucleated Red Blood Cells 0 /100 WBC (0-0); Ovalocytes Present; Poikilocytosis (M) Present; RBC Fragments Present; Total Cells Counted 100
[2017-08-17 11:07] LABS: Polychromasia Present
[2017-08-17 11:08] LABS: Mixed Population RBC Present
--- NOTE | 2017-08-17 13:48 | P.PN ---
Subjective This this is a pleasant 67 years old male with past medical history of pancreatic cancer diagnosed in February 2059, testicular cancer, hypothyroidism. Patient is status post ERCP and he had weakness in his biliary tract. Patient is currently on chemotherapy. He presents last night because of fever 103.0. Patient was admitted twice with similar problem. In the last few months. At that time suspected to have sepsis secondary to biliary infection and was treated with antibiotics. Patient denies abdominal pain. No change in bowel habits. No urinary complaints. No nausea or vomiting. No chest pain or dyspnea. No headache or focal neurological complaints has no weakness. No back pain. No abnormal sensation. No pleural effusions or difficulty swallowing. Patient has Port-A-Cath in the left upper chest and he got chemotherapy last week 08/17/2017 No more fever. His white cell count, hemoglobin and platelets or remain on the low side however they are stable, pancytopenia. Cultures are negative. Diet as tolerated. No abdominal pain. LFTs remain within normal limits. There is no plan for ERCP currently Objective - Vital Signs Vital signs: Vital Signs Temp 98.7 F 08/17/17 11:55 Pulse 86 08/17/17 11:55 Resp 16 08/17/17 11:55 BP 138/79 08/17/17 11:55 Pulse Ox 97 08/17/17 11:55 Intake & Output 08/16/17 08/17/17 08/17/17 18:59 06:59 18:59 Intake Total 1500 300 Balance 1500 300 Intake: Intake, IV Titration 1100 Amount Piperacillin-Tazobactam 3 50 .375 gm In Dextrose/Water 1 50ml.bag @ 12.5 mls/hr IVPB Q8HR [facility] Rx#: [id number] Sodium Chloride 0.9% 1, 1050 000 ml @ 150 mls/hr IV . Q6H40M [facility] Rx#:[id number] Oral 400 300 Other: # Voids 1 1 - Exam GENERAL: The patient is alert and oriented x3, not in any acute distress. Well developed, well nourished. HEENT: Pupils are round and equally reacting to light. EOMI. No scleral icterus. No conjunctival pallor. Normocephalic, atraumatic. No pharyngeal erythema. No thyromegaly. CARDIOVASCULAR: S1 and S2 present. No murmurs, rubs, or gallops. -PULMONARY: Chest is clear to auscultation, no wheezing or crackles. , Port-A- Cath in the left upper chest ABDOMEN: Soft, nontender, nondistended, normoactive bowel sounds. No palpable organomegaly. MUSCULOSKELETAL: No joint swelling or deformity. EXTREMITIES: No cyanosis, clubbing, or pedal edema. NEUROLOGICAL: Gross neurological examination did not reveal any focal deficits. SKIN: No rashes. - Labs CBC & Chem 7: 08/17/17 07:27 08/17/17 07:27 Labs: Abnormal Lab Results - Last 24 Hours (Table) 08/17/17 08/17/17 Range/Units 07:27 07:27 WBC 3.1 L (3.8-10.6) k/uL RBC 3.29 L (4.30-5.90) m/uL Hgb 8.3 L (13.0-17.5) gm/dL Hct 26.9 L (39.0-53.0) % MCHC 30.9 L (31.0-37.0) g/dL RDW 21.0 H (11.5-15.5) % Plt Count 132 L (150-450) k/uL Lymphocytes # (Manual) 0.12 L (1.0-4.8) k/uL Sodium 136 L (137-145) mmol/L Calcium 8.1 L (8.4-10.2) mg/dL Total Protein 4.6 L (6.3-8.2) g/dL Albumin 2.4 L (3.5-5.0) g/dL Microbiology - Last 24 Hours (Table) 08/15/17 21:50 Urine Culture - Final Urine,Voided 08/15/17 20:10 Blood Culture - Preliminary Blood No Growth after 24 hours Assessment and Plan Assessment: -Of unknown origin, possible sepsis. -Pancreatic cancer, on chemotherapy. -Status post 3 stents in the biliary system, history of ERCP -Pancytopenia, history of recent chemotherapy 1 week prior to admission Plan: Patient presents with fever of one-day duration, similar to problems about 2 months ago. Continue with the same and treatment. Continue with symptomatic treatment. Temperature could be controlled with ibuprofen. Patient was started on Zosyn. Infectious disease, heme oncology and GI are improved is appreciated. Continue with IV fluids and antibiotics. and [place] were unremarkable for infection. Patient has no diarrhea. Port-A-Cath in place in the left upper chest. Patient has a dry cough, continue symptomatic treatment. Continue with DVT and GI prophylaxis. Further recommendation based on the clinical course. Prognosis is guarded. CODE STATUS discussed with the patient and he confirms to me he is DO NOT RESUSCITATE/DO NOT RESUSCITATE
[2017-08-17] MEDS: ACETAMINOPHEN TAB 325 MG TAB PO PRN (16:14)
--- NOTE | 2017-08-17 17:21 | P.PN ---
Subjective Progress Note Date: 08/17/17 Principal diagnosis: fever, sepsis Patient seen today in follow-up, pt denies oral irritation, nausea, has persistent cough, no sputum or hemoptysis, denies diarrhea or constipation, he is independently ambulatory. Patient was being medicated for temperatures of 99 overnight Objective - Vital Signs Vital signs: Vital Signs Temp 101 F H 08/17/17 16:07 Pulse 93 08/17/17 15:25 Resp 18 08/17/17 15:25 BP 138/79 08/17/17 11:55 Pulse Ox 96 08/17/17 15:25 Intake & Output 08/16/17 08/17/17 08/17/17 18:59 06:59 18:59 Intake Total 1500 480 Balance 1500 480 Intake: Intake, IV Titration 1100 Amount Piperacillin-Tazobactam 3 50 .375 gm In Dextrose/Water 1 50ml.bag @ 12.5 mls/hr IVPB Q8HR [facility] Rx#: [id number] Sodium Chloride 0.9% 1, 1050 000 ml @ 150 mls/hr IV . Q6H40M [facility] Rx#:[id number] Oral 400 480 Other: # Voids 1 1 - Constitutional General appearance: Present: average body habitus, cooperative, no acute distress - EENT Eyes: Present: anicteric sclerae ENT: Present: normal oropharynx - Respiratory Respiratory: bilateral: CTA - Cardiovascular Heart sounds: normal: S1, S2 - Peripheral edema leg Peripheral Edema: bilateral: None - Gastrointestinal General gastrointestinal: Present: normal bowel sounds, soft. Absent: absent bowel sounds, decreased bowel sounds, distended, hepatomegaly, hyperactive bowel sounds, organomegaly, rigid, scaphoid, splenomegaly, tenderness, umbilical hernia, ventral hernia - Neurologic Neurologic: Present: CNII-XII intact - Musculoskeletal Musculoskeletal: Present: strength equal bilaterally - Psychiatric Psychiatric: Present: A&O x's 3, appropriate affect, intact judgment & insight - Labs CBC & Chem 7: 08/17/17 07:27 08/17/17 07:27 Labs: Abnormal Lab Results - Last 24 Hours (Table) 08/17/17 08/17/17 Range/Units 07:27 07:27 WBC 3.1 L (3.8-10.6) k/uL RBC 3.29 L (4.30-5.90) m/uL Hgb 8.3 L (13.0-17.5) gm/dL Hct 26.9 L (39.0-53.0) % MCHC 30.9 L (31.0-37.0) g/dL RDW 21.0 H (11.5-15.5) % Plt Count 132 L (150-450) k/uL Lymphocytes # (Manual) 0.12 L (1.0-4.8) k/uL Sodium 136 L (137-145) mmol/L Calcium 8.1 L (8.4-10.2) mg/dL Total Protein 4.6 L (6.3-8.2) g/dL Albumin 2.4 L (3.5-5.0) g/dL Microbiology - Last 24 Hours (Table) 08/16/17 12:29 Blood Culture - Preliminary Blood No Growth after 24 hours 08/16/17 12:44 Blood Culture - Preliminary Blood No Growth after 24 hours 08/15/17 21:50 Urine Culture - Final Urine,Voided 08/15/17 20:10 Blood Culture - Preliminary Blood No Growth after 24 hours Assessment and Plan (1) Fever Narrative/Plan: Last documented fever was on the , patient was being medicated for temperature of 99, have asked not to medicate for temp of 99 but to closely monitor because if fevers persist underlying cause needs to be identified and possibly antibiotics need to be changed or additional work up may be needed. Infectious Disease is following. Current Visit: Yes Status: Acute Priority: High Code(s): R50.9 - FEVER, UNSPECIFIED SNOMED Code(s): 964152891 (2) Pancreatic cancer Narrative/Plan: atient is due for treatment follow up imaging, this is scheduled, follow-up appointment is scheduled as well. Current Visit: No Status: Chronic Priority: Medium Code(s): C25.9 - MALIGNANT NEOPLASM OF PANCREAS, UNSPECIFIED SNOMED Code(s): 567724175
--- NOTE | 2017-08-17 23:57 | P.PN ---
Subjective Progress Note Date: 08/17/17 This is a 66-year-old male who has a past medical history significant for pancreatic cancer currently on chemotherapy under the care of Dr. Dominguez diagnosed in February 2015. He is on Gemzar for 3 weeks and off 1 week. He had a recent hospitalization March 01 through March 04 with obstruction of the biliary tract. He was discharged home on Levaquin for 7 days. As antibiotic therapy completed he again became ill and febrile and presented back to the hospital. He can have evidence of sepsis and was placed on antibiotic therapy. He was having some improvement but then had a sudden increase of his total bilirubin and constantly was transferred to his hepatology Center at [facility] for evaluation of his pancreatic stent. This occurred and there was evidence of some blockage in the stent was recannulated and he's done well since. He is now back on a course of chemotherapy receiving 3 weeks on 1 week off. He's been having some alterations of his temperature and an ongoing basis thought to be due to the chemotherapy. He is feeling relatively poorly. He was due for further chemotherapy but spiked a high-grade fever over 103 and calcium was brought into the emergency center and admitted admitted. Antibiotic therapy was initiated based on his prior cultures and concerns to obstruction of the biliary tract from his stent that was recently manipulated and recannulated but not replaced. He is feeling the best he has in quite some time actually today. His fevers improved with the Motrin and his appetite improved and he relates that he's not receive chemo he is definitely feeling a bit better. Cultures are processing negative so far. The bilirubin peaked at 0.7 now at 0.4. The alk phos peaked at 149 now at 105. AST ALT are generally normal. 08/17/2017 reveals the patient to be doing somewhat better but is having some fevers up to 101.8. Pain control with anti-inflammatory. Patient generally is having some improvement does have some leukopenia. Denies other new symptoms. Objective - Vital Signs Vital signs: Vital Signs Temp 98.8 F 08/17/17 22:00 Pulse 79 08/17/17 22:00 Resp 16 08/17/17 22:00 BP 131/81 08/17/17 22:00 Pulse Ox 98 08/17/17 22:00 Intake & Output 08/17/17 08/17/17 08/18/17 06:59 18:59 06:59 Intake Total 480 1500 Balance 480 1500 Weight 86.183 kg Intake: Intake, IV Titration 900 Amount Sodium Chloride 0.9% 1, 900 000 ml @ 150 mls/hr IV . Q6H40M [facility] Rx#:[id number] Oral 480 600 Other: # Voids 1 1 2 - Exam Pleasant 67-year-old male who's had some weight loss since last evaluation but does not appear to be acutely ill at this time., Actually this up as he's felt in some time. HEENT: Anicteric conjunctiva are pink and moist nasal mucosa grossly intact without significant lesions, there is no thrush. Neck: The neck is supple without significant lymphadenopathy or thyromegaly. Lungs: Good bilateral air entry without significant crackles or wheezing. There is no significant bronchial sounds. There is no egophony or dullness. Heart: Regular rate and rhythm with an audible S1-S2, no S3 no S4. There is no significant murmur click or rub, PMI was nondisplaced. Abdomen: Positive bowel sounds soft and nontender without palpable masses or organomegaly. There was no guarding or rebound. Extremities: The upper extremities have excellent pulses they are symmetric, no significant petechiae or telangiectasia. No splinter hemorrhages were noted. The lower extremities are free from significant edema. The peripheral pulses were 2+ and symmetric. Neuro: Awake alert oriented to person place and time. There are no acute new gross focal sensory motor deficits. - Labs CBC & Chem 7: 08/17/17 07:27 08/17/17 07:27 Labs: Abnormal Lab Results - Last 24 Hours (Table) 08/17/17 08/17/17 Range/Units 07:27 07:27 WBC 3.1 L (3.8-10.6) k/uL RBC 3.29 L (4.30-5.90) m/uL Hgb 8.3 L (13.0-17.5) gm/dL Hct 26.9 L (39.0-53.0) % MCHC 30.9 L (31.0-37.0) g/dL RDW 21.0 H (11.5-15.5) % Plt Count 132 L (150-450) k/uL Lymphocytes # (Manual) 0.12 L (1.0-4.8) k/uL Sodium 136 L (137-145) mmol/L Calcium 8.1 L (8.4-10.2) mg/dL Total Protein 4.6 L (6.3-8.2) g/dL Albumin 2.4 L (3.5-5.0) g/dL Microbiology - Last 24 Hours (Table) 08/15/17 20:10 Blood Culture - Preliminary Blood No Growth after 48 hours 08/16/17 12:29 Blood Culture - Preliminary Blood No Growth after 24 hours 08/16/17 12:44 Blood Culture - Preliminary Blood No Growth after 24 hours 08/15/17 21:50 Urine Culture - Final Urine,Voided Laboratory Results WBC 3.1 k/uL (3.8-10.6) L 08/17/17 07:27 RBC 3.29 m/uL (4.30-5.90) L 08/17/17 07:27 Hgb 8.3 gm/dL (13.0-17.5) L 08/17/17 07: Hct 26.9 % (39.0-53.0) L 08/17/17 07: MCV 81.7 fL (80.0-100.0) 08/17/17 07:27 MCH 25.2 pg (25.0-35.0) 08/17/17 07:27 MCHC 30.9 g/dL (31.0-37.0) L 08/17/17 07:27 RDW 21.0 % (11.5-15.5) H 08/17/17 07:27 Plt Count 132 k/uL (150-450) L 08/17/17 07:27 Neutrophils % 76 % 08/15/17 20:10 Neutrophils % (Manual) 73 % 08/17/17 07:27 Lymphocytes % 10 % 08/15/17 20:10 Lymphocytes % (Manual) 4 % 08/17/17 07:27 Monocytes % 9 % 08/15/17 20:10 Monocytes % (Manual) 18 % 08/17/17 07:27 Eosinophils % 1 % 08/15/17 20:10 Eosinophils % (Manual) 5 % 08/17/17 07:27 Basophils % 1 % 08/15/17 20:10 Neutrophils # 3.2 k/uL (1.3-7.7) 08/15/17 20:10 Neutrophils # (Manual) 2.26 k/uL (1.3-7.7) 08/17/17 07:27 Lymphocytes # 0.4 k/uL (1.0-4.8) L 08/15/17 20:10 Lymphocytes # (Manual) 0.12 k/uL (1.0-4.8) L 08/17/17 07:27 Monocytes # 0.4 k/uL (0-1.0) 08/15/17 20:10 Monocytes # (Manual) 0.56 k/uL (0-1.0) 08/17/17 07:27 Eosinophils # 0.0 k/uL (0-0.7) 08/15/17 20:10 Eosinophils # (Manual) 0.16 k/uL (0-0.7) 08/17/17 07:27 Basophils # 0.0 k/uL (0-0.2) 08/15/17 20:10 Nucleated RBCs 0 /100 WBC (0-0) 08/17/17 07:27 Manual Slide Review Performed 08/16/17 08:42 Dimorphic RBCs Present 08/17/17 07:27 Polychromasia Present 08/17/17 07:27 Hypochromasia Moderate 08/17/17 07:27 Poikilocytosis (manual Present 08/17/17 07:27 Anisocytosis Moderate 08/17/17 07:27 Microcytosis Slight 08/17/17 07:27 Ovalocytes Present 08/17/17 07:27 Fragmented RBCs Present 08/17/17 07:27 Haptoglobin 296.0 mg/dL (31.2-198.0) H 08/15/17 20:10 Sodium 136 mmol/L (137-145) L 08/17/17 07:27 Potassium 4.2 mmol/L (3.5-5.1) 08/17/17 07:27 Chloride 107 mmol/L (98-107) 08/17/17 07:27 Carbon Dioxide 24 mmol/L (22-30) 08/17/17 07:27 Anion Gap 5 mmol/L 08/17/17 07:27 BUN 9 mg/dL (9-20) 08/17/17 07:27 Creatinine 0.67 mg/dL (0.66-1.25) 08/17/17 07:27 Est GFR (CKD-EPI)AfAm >90 (>60 ml/min/1.73 sqM) 08/17/17 07:27 Est GFR (CKD-EPI)NonAf >90 (>60 ml/min/1.73 sqM) 08/17/17 07:27 Glucose 79 mg/dL (74-99) 08/17/17 07:27 Lactic Ac Sepsis Rflx Y 08/15/17 20:47 Plasma Lactic Acid Paddy 1.3 mmol/L (0.7-2.0) 08/16/17 02:10 Calcium 8.1 mg/dL (8.4-10.2) L 08/17/17 07:27 Total Bilirubin 0.4 mg/dL (0.2-1.3) 08/17/17 07:27 AST 32 U/L (17-59) 08/17/17 07:27 ALT 46 U/L (21-72) 08/17/17 07:27 Alkaline Phosphatase 100 U/L (38-126) 08/17/17 07:27 Lactate Dehydrogenase 557 U/L (313-618) 08/15/17 20:10 Total Protein 4.6 g/dL (6.3-8.2) L 08/17/17 07:27 Albumin 2.4 g/dL (3.5-5.0) L 08/17/17 07:27 Urine Color Yellow 08/15/17 21:50 Urine Appearance Clear (Clear) 08/15/17 21:50 Urine pH 5.5 (5.0-8.0) 08/15/17 21:50 Ur Specific [place] 1.018 (1.001-1.035) 08/15/17 21:50 Urine Protein Trace (Negative) H 08/15/17 21:50 Urine Glucose (UA) Negative (Negative) 08/15/17 21:50 Urine Ketones Negative (Negative) 08/15/17 21:50 Urine Blood Negative (Negative) 08/15/17 21:50 Urine Nitrite Negative (Negative) 08/15/17 21:50 Urine Bilirubin Negative (Negative) 08/15/17 21:50 Urine Urobilinogen 2.0 mg/dL (<2.0) 08/15/17 21:50 Ur Leukocyte Esterase Negative (Negative) 08/15/17 21:50 Microbiology 08/15/17 20:10 Blood Blood Culture - Preliminary No Growth after 48 hours 08/16/17 12:29 Blood Blood Culture - Preliminary No Growth after 24 hours 08/16/17 12:44 Blood Blood Culture - Preliminary No Growth after 24 hours 08/15/17 21:50 Urine,Voided Urine Culture - Final Assessment and Plan (1) Anahy-ampullary carcinoma Current Visit: No Status: Acute Code(s): C24.8 - MALIGNANT NEOPLASM OF OVERLAPPING SITES OF BILIARY TRACT SNOMED Code(s): 917220015 (2) Pancreatic mass Current Visit: No Status: Acute Priority: High Code(s): K86.9 - DISEASE OF PANCREAS, UNSPECIFIED SNOMED Code(s): 739481331 (3) Cholangitis, recurrent Narrative/Plan: 67-year-old male that has a history of the periampullary pancreatic cancer who's been followed closely at [facility] and has been receiving chemotherapy, currently 3 weeks on 1 week off. He was due for chemotherapy today but he developed increasing fever and was a bit ill and constantly was brought to the hospital. Antibiotics have been started, chemotherapy was held and he is being monitored. Fortunately his total bilirubin increased minimally and is now are the improving. His alkaline phosphatase as well as his AST and ALT are also improved. With this it is less likely that he has a partially obstructed biliary stent and then in the past he would just have rapidly increasing alk phos and total bilirubin. A mild infection related to his recent chemotherapy seems to be the most likely etiology. Antibiotic therapy is being utilized with piperacillin/tazobactam that was tolerated quite well in the past. All cultures are pending and negative so far. Blood work will be monitored and there is a potential that he would be treated with outpatient intravenous antibiotic therapy over the next week or so. He would then have this repeated scans from his oncologist and then be followed in the oncologist office for an overall plan. The patient did voices of the best he has felt in some time and relates it to not receiving chemotherapy. It is unclear at this time what his overall plan will be, his however would certainly like to have further chemotherapy given. 08/17/2017 patient still having fevers today. This is being discussed with the oncologist. Considering the possibility of addition of Neupogen giving his leukopenia and ongoing fevers. Cultures are negative and alk phos, AST, ALT and total bili are all normal. No other obvious source of infection at this time. Does not appear to have obstruction of the biliary tract at this time. Continue current antibiotic and monitor. Apparently will have a follow-up computed tomography scan in Wednesday and then determine next course of action. Current Visit: No Status: Acute Code(s): K83.0 - CHOLANGITIS SNOMED Code(s ): 66599668 (4) Fever Current Visit: Yes Status: Acute Priority: High Code(s): R50.9 - FEVER, UNSPECIFIED SNOMED Code(s): 132542845
[2017-08-18] MEDS ORDERED: URSODIOL 300 MG CAP ONE (04:00)
[2017-08-18] MEDS ORDERED: guaiFENesin 600 MG TABLET.ER PO ONE (04:00)
[2017-08-18] MEDS ORDERED: LEVOTHYROXINE 100 MCG TAB ONE (04:00)
[2017-08-18] MEDS ORDERED: PANTOPRAZOLE 40 MG TABLET PO ONE (04:00)
[2017-08-18] MEDS ORDERED: DOCUSATE 100 MG CAP ONE (04:00)
[2017-08-18] MEDS ORDERED: IBUPROFEN 600 MG TAB PO ONE (04:00)
[2017-08-18 09:36] LABS: ALT 42 U/L (21-72); AST 29 U/L (17-59); Albumin 2.2 g/dL (3.5-5.0); Alkaline Phosphatase 89 U/L (38-126); Anion Gap 8 mmol/L; Blood Urea Nitrogen 8 mg/dL (9-20); Calcium 7.8 mg/dL (8.4-10.2); Carbon Dioxide 21 mmol/L (22-30); Chloride 105 mmol/L (98-107); Glucose 79 mg/dL (74-99); Sodium 134 mmol/L (137-145); Total Bilirubin 0.4 mg/dL (0.2-1.3); Total Protein 4.4 g/dL (6.3-8.2)
[2017-08-18 10:59] LABS: Anisocytosis Moderate
--- NOTE | 2017-08-18 11:37 | P.PN ---
Subjective Progress Note Date: 08/18/17 Principal diagnosis: Fever 101.8 yesterday afternoon. Feels well. LFTs within normal limits yesterday CMP pending today. BC negative so far. Denies abdominal pain. Objective - Vital Signs Vital signs: Vital Signs Temp 99.1 F 08/18/17 01:26 Pulse 79 08/17/17 22:00 Resp 16 08/18/17 00:00 BP 131/81 08/17/17 22:00 Pulse Ox 98 08/17/17 22:00 Intake & Output 08/17/17 08/18/17 08/18/17 18:59 06:59 18:59 Intake Total 480 1500 Balance 480 1500 Weight 86.183 kg Intake: Intake, IV Titration 900 Amount Sodium Chloride 0.9% 1, 900 000 ml @ 150 mls/hr IV . Q6H40M [facility] Rx#:[id number] Oral 480 600 Other: # Voids 1 2 - Exam General appearance: The patient is alert, oriented, in no acute distress. HET: Head is normocephalic and atraumatic. Pupils are equal and reactive. Oropharynx is clear without lesions. Neck: Supple without lymphadenopathy. Trachea midline. Heart: S1 S2. Regular rate and rhythm. Lungs: No crackles or wheezes are heard. Abdomen: Soft, nontender, nondistended with bowel sounds. No peritoneal signs. No palpable organomegaly or masses. Extremities: Normal skin color and turgor. No cyanosis, rash, ulceration, clubbing, or edema. Radial and pedal pulses are 2/4 bilaterally. Neurological: No focal deficits. Strength and sensation are grossly intact. - Labs CBC & Chem 7: 08/18/17 06:43 08/17/17 07:27 Labs: Abnormal Lab Results - Last 24 Hours (Table) 08/18/17 Range/Units 06:43 WBC 2.1 L (3.8-10.6) k/uL RBC 3.10 L (4.30-5.90) m/uL Hgb 7.7 L (13.0-17.5) gm/dL Hct 25.2 L (39.0-53.0) % MCHC 30.8 L (31.0-37.0) g/dL RDW 21.0 H (11.5-15.5) % Microbiology - Last 24 Hours (Table) 08/15/17 20:10 Blood Culture - Preliminary Blood No Growth after 48 hours 08/16/17 12:29 Blood Culture - Preliminary Blood No Growth after 24 hours 08/16/17 12:44 Blood Culture - Preliminary Blood No Growth after 24 hours 08/15/17 21:50 Urine Culture - Final Urine,Voided Assessment and Plan (1) Fever Current Visit: Yes Status: Acute Priority: High Code(s): R50.9 - FEVER, UNSPECIFIED SNOMED Code(s): 042102154 (2) Pancreatic cancer Narrative/Plan: Presently receiving chemotherapy Current Visit: No Status: Chronic Priority: Medium Code(s): C25.9 - MALIGNANT NEOPLASM OF PANCREAS, UNSPECIFIED SNOMED Code(s): 513984431 Plan: 1. Continue supportive measures. Await CMP. Continue with antibiotics. ID following. Diet as tolerated. Assessment and plan a care discussed with Dr. Taveras
[2017-08-18] MEDS: SODIUM CHLORIDE 0.9% 1,000 ML IV SCH ×4 (12:05→19:40)
[2017-08-18] MEDS: DOCUSATE 100 MG CAP PO SCH ×2 (12:06→19:39)
[2017-08-18] MEDS: FLUTICASONE 50MCG/SPRAY NASAL 16GM EA NOSTRIL SCH ×2 (12:06→19:50)
[2017-08-18] MEDS: PIPERACILLIN-TAZOBACTAM 3.375 GM in DEXTROSE/WATER 1 50ML.BAG IVPB SCH ×3 (12:06→23:30)
[2017-08-18] MEDS: LEVOTHYROXINE 100 MCG TAB PO SCH (12:06)
[2017-08-18] MEDS: URSODIOL 300 MG CAP PO SCH ×2 (12:06→19:40)
[2017-08-18] MEDS: guaiFENesin 600 MG TABLET.ER PO SCH ×2 (12:06→19:39)
[2017-08-18] MEDS: PANTOPRAZOLE 40 MG TABLET PO SCH (12:06)
[2017-08-18] MEDS: HEPARIN SODIUM,PORCINE 5,000 UNIT/ML 1 ML VIAL SQ SCH ×2 (12:06→19:39)
--- NOTE | 2017-08-18 12:20 | P.PN ---
Subjective Progress Note Date: 08/18/17 Principal diagnosis: fever, sepsis Patient seen in follow-up, his cough is worse with ambulation, not expectorating much, no hemoptysis, persistent fevers, appetite fair to poor, denies nausea or vomiting, diarrhea, constipation, swelling or pain, WBC differential pending. Objective - Vital Signs Vital signs: Vital Signs Temp 99.1 F 08/18/17 01:26 Pulse 79 08/17/17 22:00 Resp 16 08/18/17 00:00 BP 131/81 08/17/17 22:00 Pulse Ox 98 08/17/17 22:00 Intake & Output 08/17/17 08/18/17 08/18/17 18:59 06:59 18:59 Intake Total 480 1500 Balance 480 1500 Weight 86.183 kg Intake: Intake, IV Titration 900 Amount Sodium Chloride 0.9% 1, 900 000 ml @ 150 mls/hr IV . Q6H40M [facility] Rx#:[id number] Oral 480 600 Other: # Voids 1 2 - Constitutional General appearance: Present: cooperative, no acute distress, obese - EENT Eyes: Present: anicteric sclerae - Respiratory Respiratory: bilateral: diminished (Lt base) - Cardiovascular Rhythm: regular Heart sounds: normal: S1, S2 Abnormal Heart Sounds: Absent: systolic murmur, diastolic murmur, rub, S3 Gallop , S4 Gallop, click, other - Peripheral edema leg Peripheral Edema: bilateral: None - Gastrointestinal General gastrointestinal: Present: normal bowel sounds, soft - Integumentary Integumentary: Present: normal turgor - Neurologic Neurologic: Present: CNII-XII intact - Musculoskeletal Musculoskeletal: Present: gait normal, strength equal bilaterally - Labs CBC & Chem 7: 08/18/17 06:43 08/17/17 07:27 Labs: Abnormal Lab Results - Last 24 Hours (Table) 08/18/17 Range/Units 06:43 WBC 2.1 L (3.8-10.6) k/uL RBC 3.10 L (4.30-5.90) m/uL Hgb 7.7 L (13.0-17.5) gm/dL Hct 25.2 L (39.0-53.0) % MCHC 30.8 L (31.0-37.0) g/dL RDW 21.0 H (11.5-15.5) % Microbiology - Last 24 Hours (Table) 08/15/17 20:10 Blood Culture - Preliminary Blood No Growth after 48 hours 08/16/17 12:29 Blood Culture - Preliminary Blood No Growth after 24 hours 08/16/17 12:44 Blood Culture - Preliminary Blood No Growth after 24 hours 08/15/17 21:50 Urine Culture - Final Urine,Voided Assessment and Plan (1) Fever Narrative/Plan: Fevers have persisted, cough is progressed, chest x-ray ordered for evaluation. Fevers could possibly be related to treatment of malignancy, pending WBC differential, patient may require G-CSF. Continue to monitor vitals closely. Case to be reviewed with Infectious Disease. Cultures so far no growth. Continue antibiotics as recommended Current Visit: Yes Status: Acute Priority: High Code(s): R50.9 - FEVER, UNSPECIFIED SNOMED Code(s): 975262388 (2) Pancreatic cancer Narrative/Plan: Day 15 of cycle 3 not given due to illness. Treatment follow-up imaging scheduled for 08/23, follow-up with Dr. Dominguez on 08/24, continue f/u as planned. Current Visit: No Status: Chronic Priority: Medium Code(s): C25.9 - MALIGNANT NEOPLASM OF PANCREAS, UNSPECIFIED SNOMED Code(s): 245182982
[2017-08-18] MEDS: guaiFENesin SYRUP 100MG/5ML 200 MG/10 ML CUP PO PRN (12:21)
[2017-08-18 13:01] LABS: Anisocytosis Moderate; HCT 27.9 % (39.0-53.0); HGB 8.7 gm/dL (13.0-17.5); Hypochromasia Moderate; MCHC 31.2 g/dL (31.0-37.0); Mean Platelet Volume 7.4; Microcytosis Slight; Platelet Count 214 k/uL (150-450); RBC 3.48 m/uL (4.30-5.90); RDW 20.6 % (11.5-15.5); WBC 3.7 k/uL (3.8-10.6)
[2017-08-18 13:23] LABS: HCT 25.2 % (39.0-53.0); HGB 7.7 gm/dL (13.0-17.5); MCV 81.3 fL (80.0-100.0); WBC 2.1 k/uL (3.8-10.6)
[2017-08-18 13:24] LABS: MCHC 30.8 g/dL (31.0-37.0); Mean Platelet Volume 6.9
[2017-08-18 13:25] LABS: Hypochromasia Moderate; Microcytosis Slight
[2017-08-18 13:54] LABS: Band Neutrophils % 1 %; Eosinophils # (M) 0.15 k/uL (0-0.7); Monocytes # (M) 0.81 k/uL (0-1.0); Neutrophils % (M) 65 %; Nucleated Red Blood Cells 0 /100 WBC (0-0); Total Cells Counted 100
[2017-08-18 13:55] LABS: Poikilocytosis (M) Present; Polychromasia Present
[2017-08-18] MEDS: IBUPROFEN 600 MG TAB PO PRN ×2 (14:22→22:55)
[2017-08-18] MEDS: ACETAMINOPHEN TAB 325 MG TAB PO PRN ×2 (15:32→22:08)
--- NOTE | 2017-08-18 16:17 | XR ---
EXAMINATION TYPE: XR chest 2V DATE OF EXAM: 08/18/2017 COMPARISON: 08/15/2017 HISTORY: Shortness of breath TECHNIQUE: Frontal and lateral views of the chest are obtained. FINDINGS: Scattered senescent parenchymal changes noted. Hyperinflation compatible with COPD. Elevation left hemidiaphragm. Density left costophrenic angle may reflect effusion and/or infiltrate. Follow-up until resolution recommended. Heart size is stable. Mediastinal structures are stable and grossly unremarkable. No evidence for hilar prominence. Degenerative changes dorsal spine. IMPRESSION: 1. Elevation left hemidiaphragm. Density left costophrenic angle may reflect effusion and/or infiltra te. Follow-up until resolution recommended.
[2017-08-18] MEDS: FILGRASTIM-SNDZ 480 MCG/0.8 ML SYRINGE SQ SCH (19:40)
[2017-08-18] MEDS ORDERED: guaiFENesin-Coden 100-10MG/5ML 10 ML CUP PO PRN (21:33)
--- NOTE | 2017-08-18 21:35 | P.PN ---
Subjective This this is a pleasant 67 years old male with past medical history of pancreatic cancer diagnosed in February 2059, testicular cancer, hypothyroidism. Patient is status post ERCP and he had weakness in his biliary tract. Patient is currently on chemotherapy. He presents last night because of fever 103.0. Patient was admitted twice with similar problem. In the last few months. At that time suspected to have sepsis secondary to biliary infection and was treated with antibiotics. Patient denies abdominal pain. No change in bowel habits. No urinary complaints. No nausea or vomiting. No chest pain or dyspnea. No headache or focal neurological complaints has no weakness. No back pain. No abnormal sensation. No pleural effusions or difficulty swallowing. Patient has Port-A-Cath in the left upper chest and he got chemotherapy last week 08/17/2017 No more fever. His white cell count, hemoglobin and platelets or remain on the low side however they are stable, pancytopenia. Cultures are negative. Diet as tolerated. No abdominal pain. LFTs remain within normal limits. There is no plan for ERCP currently 08/18/2017 Patient spiked fever today at 101.2. And he has progressive cough. Patient continued to feel generally weak. Elevation of the left hand diaphragm possible pleural effusion and/or infiltrate Objective - Vital Signs Vital signs: Vital Signs Temp 101.2 F H 08/18/17 15:20 Pulse 95 08/18/17 15:20 Resp 16 08/18/17 15:20 BP 157/90 08/18/17 15:20 Pulse Ox 97 08/18/17 15:20 Intake & Output 08/18/17 08/18/17 08/19/17 06:59 18:59 06:59 Intake Total 1500 1200 Balance 1500 1200 Intake: Intake, IV Titration 900 1200 Amount Sodium Chloride 0.9% 1, 900 1200 000 ml @ 150 mls/hr IV . Q6H40M [facility] Rx#:[id number] Oral 600 Other: # Voids 2 5 # Bowel Movements 0 - Exam GENERAL: The patient is alert and oriented x3, not in any acute distress. Well developed, well nourished. HEENT: Pupils are round and equally reacting to light. EOMI. No scleral icterus. No conjunctival pallor. Normocephalic, atraumatic. No pharyngeal erythema. No thyromegaly. CARDIOVASCULAR: S1 and S2 present. No murmurs, rubs, or gallops. -PULMONARY: Chest is clear to auscultation, no wheezing or crackles. , Port-A- Cath in the left upper chest ABDOMEN: Soft, nontender, nondistended, normoactive bowel sounds. No palpable organomegaly. MUSCULOSKELETAL: No joint swelling or deformity. EXTREMITIES: No cyanosis, clubbing, or pedal edema. NEUROLOGICAL: Gross neurological examination did not reveal any focal deficits. SKIN: No rashes. - Labs CBC & Chem 7: 08/18/17 12:40 08/18/17 06:43 Labs: Abnormal Lab Results - Last 24 Hours (Table) 08/18/17 08/18/17 08/18/17 Range/Units 06:43 06:43 12:40 WBC 2.1 L 3.7 L (3.8-10.6) k/uL RBC 3.10 L 3.48 L (4.30-5.90) m/uL Hgb 7.7 L 8.7 L (13.0-17.5) gm/dL Hct 25.2 L 27.9 L (39.0-53.0) % MCHC 30.8 L (31.0-37.0) g/dL RDW 21.0 H 20.6 H (11.5-15.5) % Lymphocytes # (Manual) 0.30 L (1.0-4.8) k/uL Sodium 134 L (137-145) mmol/L Carbon Dioxide 21 L (22-30) mmol/L BUN 8 L (9-20) mg/dL Creatinine 0.62 L (0.66-1.25) mg/dL Calcium 7.8 L (8.4-10.2) mg/dL Total Protein 4.4 L (6.3-8.2) g/dL Albumin 2.2 L (3.5-5.0) g/dL Microbiology - Last 24 Hours (Table) 08/16/17 12:29 Blood Culture - Preliminary Blood No Growth after 48 hours 08/16/17 12:44 Blood Culture - Preliminary Blood No Growth after 48 hours 08/15/17 20:10 Blood Culture - Preliminary Blood No Growth after 48 hours Assessment and Plan Assessment: -Of unknown origin, possible sepsis. -Pancreatic cancer, on chemotherapy. -Status post 3 stents in the biliary system, history of ERCP -Pancytopenia, history of recent chemotherapy 1 week prior to admission Plan: Patient presents with fever of one-day duration, similar to problems about 2 months ago. Continue with the same and treatment. Continue with symptomatic treatment. Temperature could be controlled with ibuprofen. Patient was started on Zosyn. Infectious disease, heme oncology and GI are improved is appreciated. Continue with IV fluids and antibiotics. UA was unremarkable for infection. Patient continued to spike fever, repeat chest x-ray: Possible left lower infiltrate Patient has no diarrhea. Port-A-Cath in place in the left upper chest. Patient has a worsening dry cough, continue symptomatic treatment. Continue with DVT and GI prophylaxis. Further recommendation based on the clinical course. Prognosis is guarded. CODE STATUS discussed with the patient and he confirms to me he is DO NOT RESUSCITATE/DO NOT RESUSCITATE
--- NOTE | 2017-08-18 22:53 | P.PN ---
Subjective Progress Note Date: 08/18/17 This is a 66-year-old male who has a past medical history significant for pancreatic cancer currently on chemotherapy under the care of Dr. Dominguez diagnosed in February 2015. He is on Gemzar for 3 weeks and off 1 week. He had a recent hospitalization March 01 through March 04 with obstruction of the biliary tract. He was discharged home on Levaquin for 7 days. As antibiotic therapy completed he again became ill and febrile and presented back to the hospital. He can have evidence of sepsis and was placed on antibiotic therapy. He was having some improvement but then had a sudden increase of his total bilirubin and constantly was transferred to his hepatology Center at [facility] for evaluation of his pancreatic stent. This occurred and there was evidence of some blockage in the stent was recannulated and he's done well since. He is now back on a course of chemotherapy receiving 3 weeks on 1 week off. He's been having some alterations of his temperature and an ongoing basis thought to be due to the chemotherapy. He is feeling relatively poorly. He was due for further chemotherapy but spiked a high-grade fever over 103 and calcium was brought into the emergency center and admitted admitted. Antibiotic therapy was initiated based on his prior cultures and concerns to obstruction of the biliary tract from his stent that was recently manipulated and recannulated but not replaced. He is feeling the best he has in quite some time actually today. His fevers improved with the Motrin and his appetite improved and he relates that he's not receive chemo he is definitely feeling a bit better. Cultures are processing negative so far. The bilirubin peaked at 0.7 now at 0.4. The alk phos peaked at 149 now at 105. AST ALT are generally normal. 08/17/2017 reveals the patient to be doing somewhat better but is having some fevers up to 101.8. Pain control with anti-inflammatory. Patient generally is having some improvement does have some leukopenia. Denies other new symptoms. 08/18/2017 patient is feeling rather well but continues to have fever again having 101.8 fever this afternoon. When he has his fever he feels poorly but in between is feeling relatively well. Appetite is adequate. He is not having chills or rigors. Continues to have a normal bilirubin as well as a normal alk phos and AST, ALT. No positive cultures. Objective - Vital Signs Vital signs: Vital Signs Temp 99 F 08/18/17 21:05 Pulse 85 08/18/17 21:05 Resp 20 08/18/17 21:05 BP 140/74 08/18/17 21:05 Pulse Ox 96 08/18/17 21:05 Intake & Output 08/18/17 08/18/17 08/19/17 06:59 18:59 06:59 Intake Total 1500 1200 1550 Balance 1500 1200 1550 Intake: Intake, IV Titration 900 1200 950 Amount Piperacillin-Tazobactam 3 50 .375 gm In Dextrose/Water 1 50ml.bag @ 12.5 mls/hr IVPB Q8HR [facility] Rx#: [id number] Sodium Chloride 0.9% 1, 900 1200 900 000 ml @ 150 mls/hr IV . Q6H40M [facility] Rx#:[id number] Oral 600 600 Other: # Voids 2 5 2 # Bowel Movements 0 - Exam Pleasant 67-year-old male who's had some weight loss since last evaluation but does not appear to be acutely ill at this time., Actually this up as he's felt in some time. HEENT: Anicteric conjunctiva are pink and moist nasal mucosa grossly intact without significant lesions, there is no thrush. Neck: The neck is supple without significant lymphadenopathy or thyromegaly. Lungs: Good bilateral air entry without significant crackles or wheezing. There is no significant bronchial sounds. There is no egophony or dullness. Heart: Regular rate and rhythm with an audible S1-S2, no S3 no S4. There is no significant murmur click or rub, PMI was nondisplaced. Abdomen: Positive bowel sounds soft and nontender without palpable masses or organomegaly. There was no guarding or rebound. Extremities: The upper extremities have excellent pulses they are symmetric, no significant petechiae or telangiectasia. No splinter hemorrhages were noted. The lower extremities are free from significant edema. The peripheral pulses were 2+ and symmetric. Neuro: Awake alert oriented to person place and time. There are no acute new gross focal sensory motor deficits. - Labs CBC & Chem 7: 08/18/17 12:40 08/18/17 06:43 Labs: Abnormal Lab Results - Last 24 Hours (Table) 08/18/17 08/18/17 08/18/17 Range/Units 06:43 06:43 12:40 WBC 2.1 L 3.7 L (3.8-10.6) k/uL RBC 3.10 L 3.48 L (4.30-5.90) m/uL Hgb 7.7 L 8.7 L (13.0-17.5) gm/dL Hct 25.2 L 27.9 L (39.0-53.0) % MCHC 30.8 L (31.0-37.0) g/dL RDW 21.0 H 20.6 H (11.5-15.5) % Lymphocytes # (Manual) 0.30 L (1.0-4.8) k/uL Sodium 134 L (137-145) mmol/L Carbon Dioxide 21 L (22-30) mmol/L BUN 8 L (9-20) mg/dL Creatinine 0.62 L (0.66-1.25) mg/dL Calcium 7.8 L (8.4-10.2) mg/dL Total Protein 4.4 L (6.3-8.2) g/dL Albumin 2.2 L (3.5-5.0) g/dL Microbiology - Last 24 Hours (Table) 08/15/17 20:10 Blood Culture - Preliminary Blood No Growth after 72 hours 08/16/17 12:29 Blood Culture - Preliminary Blood No Growth after 48 hours 08/16/17 12:44 Blood Culture - Preliminary Blood No Growth after 48 hours Laboratory Results WBC 3.7 k/uL (3.8-10.6) L 08/18/17 12:40 RBC 3.48 m/uL (4.30-5.90) L 08/18/17 12:40 Hgb 8.7 gm/dL (13.0-17.5) L 08/18/17 12:40 Hct 27.9 % (39.0-53.0) L 08/18/17 12:40 MCV 80.0 fL (80.0-100.0) 08/18/17 12:40 MCH 25.0 pg (25.0-35.0) 08/18/17 12:40 MCHC 31.2 g/dL (31.0-37.0) 08/18/17 12:40 RDW 20.6 % (11.5-15.5) H 08/18/17 12:40 Plt Count 214 k/uL (150-450) 08/18/17 12:40 Neutrophils % Not Reportable 08/18/17 06:43 Neutrophils % (Manual) 65 % 08/18/17 12:40 Band Neutrophils % 1 % 08/18/17 12:40 Lymphocytes % Not Reportable 08/18/17 06:43 Lymphocytes % (Manual) 8 % 08/18/17 12:40 Monocytes % Not Reportable 08/18/17 06:43 Monocytes % (Manual) 22 % 08/18/17 12:40 Eosinophils % Not Reportable 08/18/17 06:43 Eosinophils % (Manual) 4 % 08/18/17 12:40 Basophils % Not Reportable 08/18/17 06:43 Neutrophils # Not Reportable 08/18/17 06:43 Neutrophils # (Manual) 2.40 k/uL (1.3-7.7) 08/18/17 12:40 Lymphocytes # Not Reportable 08/18/17 06:43 Lymphocytes # (Manual) 0.30 k/uL (1.0-4.8) L 08/18/17 12:40 Monocytes # Not Reportable 08/18/17 06:43 Monocytes # (Manual) 0.81 k/uL (0-1.0) 08/18/17 12:40 Eosinophils # Not Reportable 08/18/17 06:43 Eosinophils # (Manual) 0.15 k/uL (0-0.7) 08/18/17 12:40 Basophils # Not Reportable 08/18/17 06:43 Nucleated RBCs 0 /100 WBC (0-0) 08/18/17 12:40 Manual Slide Review Performed 08/18/17 12:40 Dimorphic RBCs Present 08/17/17 07:27 Polychromasia Present 08/18/17 12:40 Hypochromasia Moderate 08/18/17 12:40 Poikilocytosis (manual Present 08/18/17 12:40 Anisocytosis Moderate 08/18/17 12:40 Microcytosis Slight 08/18/17 12:40 Ovalocytes Present 08/17/17 07:27 Fragmented RBCs Present 08/17/17 07:27 Haptoglobin 296.0 mg/dL (31.2-198.0) H 08/15/17 20:10 Sodium 134 mmol/L (137-145) L 08/18/17 06:43 Potassium 4.0 mmol/L (3.5-5.1) 08/18/17 06:43 Chloride 105 mmol/L (98-107) 08/18/17 06:43 Carbon Dioxide 21 mmol/L (22-30) L 08/18/17 06:43 Anion Gap 8 mmol/L 08/18/17 06:43 BUN 8 mg/dL (9-20) L 08/18/17 06:43 Creatinine 0.62 mg/dL (0.66-1.25) L 08/18/17 06:43 Est GFR (CKD-EPI)AfAm >90 (>60 ml/min/1.73 sqM) 08/18/17 06:43 Est GFR (CKD-EPI)NonAf >90 (>60 ml/min/1.73 sqM) 08/18/17 06:43 Glucose 79 mg/dL (74-99) 08/18/17 06:43 Lactic Ac Sepsis Rflx Y 08/15/17 20:47 Plasma Lactic Acid Paddy 1.3 mmol/L (0.7-2.0) 08/16/17 02:10 Calcium 7.8 mg/dL (8.4-10.2) L 08/18/17 06:43 Total Bilirubin 0.4 mg/dL (0.2-1.3) 08/18/17 06:43 AST 29 U/L (17-59) 08/18/17 06:43 ALT 42 U/L (21-72) 08/18/17 06:43 Alkaline Phosphatase 89 U/L (38-126) 08/18/17 06:43 Lactate Dehydrogenase 557 U/L (313-618) 08/15/17 20:10 Total Protein 4.4 g/dL (6.3-8.2) L 08/18/17 06:43 Albumin 2.2 g/dL (3.5-5.0) L 08/18/17 06:43 Urine Color Yellow 08/15/17 21:50 Urine Appearance Clear (Clear) 08/15/17 21:50 Urine pH 5.5 (5.0-8.0) 08/15/17 21:50 Ur Specific Sharon 1.018 (1.001-1.035) 08/15/17 21:50 Urine Protein Trace (Negative) H 08/15/17 21:50 Urine Glucose (UA) Negative (Negative) 08/15/17 21:50 Urine Ketones Negative (Negative) 08/15/17 21:50 Urine Blood Negative (Negative) 08/15/17 21:50 Urine Nitrite Negative (Negative) 08/15/17 21:50 Urine Bilirubin Negative (Negative) 08/15/17 21:50 Urine Urobilinogen 2.0 mg/dL (<2.0) 08/15/17 21:50 Ur Leukocyte Esterase Negative (Negative) 08/15/17 21:50 Microbiology 08/15/17 20:10 Blood Blood Culture - Preliminary No Growth after 72 hours 08/16/17 12:29 Blood Blood Culture - Preliminary No Growth after 48 hours 08/16/17 12:44 Blood Blood Culture - Preliminary No Growth after 48 hours 08/15/17 21:50 Urine,Voided Urine Culture - Final Assessment and Plan (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 and has been receiving chemotherapy, currently 3 weeks on 1 week off. He was due for chemotherapy today but he developed increasing fever and was a bit ill and constantly was brought to the hospital. Antibiotics have been started, chemotherapy was held and he is being monitored. Fortunately his total bilirubin increased minimally and is now are the improving. His alkaline phosphatase as well as his AST and ALT are also improved. With this it is less likely that he has a partially obstructed biliary stent and then in the past he would just have rapidly increasing alk phos and total bilirubin. A mild infection related to his recent chemotherapy seems to be the most likely etiology. Antibiotic therapy is being utilized with piperacillin/tazobactam that was tolerated quite well in the past. All cultures are pending and negative so far. Blood work will be monitored and there is a potential that he would be treated with outpatient intravenous antibiotic therapy over the next week or so. He would then have this repeated scans from his oncologist and then be followed in the oncologist office for an overall plan. The patient did voices of the best he has felt in some time and relates it to not receiving chemotherapy. It is unclear at this time what his overall plan will be, his however would certainly like to have further chemotherapy given. 08/17/2017 patient still having fevers today. This is being discussed with the oncologist. Considering the possibility of addition of Neupogen giving his leukopenia and ongoing fevers. Cultures are negative and alk phos, AST, ALT and total bili are all normal. No other obvious source of infection at this time. Does not appear to have obstruction of the biliary tract at this time. Continue current antibiotic and monitor. Apparently will have a follow-up computed tomography scan in Wednesday and then determine next course of action. 08/18/2017 this situation discussed with oncology and they agree that a dose of Neupogen may be helpful given his relative immunocompromise and ongoing fever and relative leukopenia. This should be started and patient will be monitored. When his fever he feels somewhat poorly. There is no elevation of his bilirubin or alk phos and consequently ongoing or recurrent obstruction of his biliary tract seems to be very unlikely at this time. The fevers could be medication induced, from the underlying progression of his cancer, or related to his relative neutropenia. A dose of Neupogen hopefully will resolve neutropenia and potentially his fevers. If he continues to have fever without any other significant focus of infection, we worry about effects of his chemotherapy and the tumor itself. He is due for follow-up computed tomography scan this coming Wednesday and follow-up with oncologist on Wednesday. Current Visit: No Status: Acute Code(s): K83.0 - CHOLANGITIS SNOMED Code(s ): 76929780 (4) Fever Current Visit: Yes Status: Acute Priority: High Code(s): R50.9 - FEVER, UNSPECIFIED SNOMED Code(s): 218743759
[2017-08-18] MEDS: ONDANSETRON 4 MG/2 ML VIAL IVP PRN (23:27)
[2017-08-19] MEDS: LEVOTHYROXINE 100 MCG TAB PO SCH (06:27)
[2017-08-19 07:33] LABS: Anisocytosis Moderate; Basophils % (A) 0 %; Eosinophils # (A) 0.1 k/uL (0-0.7); Eosinophils % (A) 1 %; HCT 27.2 % (39.0-53.0); HGB 8.5 gm/dL (13.0-17.5); Hypochromasia Moderate; Lymphocytes # (A) 0.3 k/uL (1.0-4.8); Lymphocytes % (A) 3 %; MCH 25.3 pg (25.0-35.0); MCHC 31.4 g/dL (31.0-37.0); MCV 80.4 fL (80.0-100.0); Mean Platelet Volume 7.3; Microcytosis Slight; Monocytes % (A) 10 %; Neutrophils # (A) 7.9 k/uL (1.3-7.7); Neutrophils % (A) 82 %; Platelet Count 247 k/uL (150-450); Poikilocytosis Slight; RBC 3.38 m/uL (4.30-5.90); RDW 20.9 % (11.5-15.5); WBC 9.6 k/uL (3.8-10.6)
[2017-08-19 08:01] LABS: ALT 38 U/L (21-72); AST 25 U/L (17-59); Albumin 2.3 g/dL (3.5-5.0); Alkaline Phosphatase 106 U/L (38-126); Anion Gap 8 mmol/L; Blood Urea Nitrogen 8 mg/dL (9-20); Calcium 8.1 mg/dL (8.4-10.2); Carbon Dioxide 22 mmol/L (22-30); Chloride 107 mmol/L (98-107); Glucose 107 mg/dL (74-99); Potassium 3.9 mmol/L (3.5-5.1); Sodium 137 mmol/L (137-145); Total Bilirubin 0.3 mg/dL (0.2-1.3); Total Protein 4.5 g/dL (6.3-8.2)
[2017-08-19] MEDS: PANTOPRAZOLE 40 MG TABLET PO SCH (08:20)
[2017-08-19] MEDS: FLUTICASONE 50MCG/SPRAY NASAL 16GM EA NOSTRIL SCH (08:20)
[2017-08-19] MEDS: URSODIOL 300 MG CAP PO SCH ×2 (08:21→19:59)
[2017-08-19] MEDS: PIPERACILLIN-TAZOBACTAM 3.375 GM in DEXTROSE/WATER 1 50ML.BAG IVPB SCH ×2 (08:21→16:33)
[2017-08-19] MEDS: DOCUSATE 100 MG CAP PO SCH ×2 (08:21→19:59)
[2017-08-19] MEDS: guaiFENesin 600 MG TABLET.ER PO SCH ×2 (08:21→19:59)
[2017-08-19] MEDS: HEPARIN SODIUM,PORCINE 5,000 UNIT/ML 1 ML VIAL SQ SCH ×2 (08:21→19:59)
[2017-08-19] MEDS: ACETAMINOPHEN TAB 325 MG TAB PO PRN (08:25)
[2017-08-19] MEDS: SODIUM CHLORIDE 0.9% 1,000 ML IV SCH ×2 (09:50→16:33)
--- NOTE | 2017-08-19 13:11 | P.PN ---
Subjective This this is a pleasant 67 years old male with past medical history of pancreatic cancer diagnosed in February 2059, testicular cancer, hypothyroidism. Patient is status post ERCP and he had weakness in his biliary tract. Patient is currently on chemotherapy. He presents last night because of fever 103.0. Patient was admitted twice with similar problem. In the last few months. At that time suspected to have sepsis secondary to biliary infection and was treated with antibiotics. Patient denies abdominal pain. No change in bowel habits. No urinary complaints. No nausea or vomiting. No chest pain or dyspnea. No headache or focal neurological complaints has no weakness. No back pain. No abnormal sensation. No pleural effusions or difficulty swallowing. Patient has Port-A-Cath in the left upper chest and he got chemotherapy last week 08/17/2017 No more fever. His white cell count, hemoglobin and platelets or remain on the low side however they are stable, pancytopenia. Cultures are negative. Diet as tolerated. No abdominal pain. LFTs remain within normal limits. There is no plan for ERCP currently 08/18/2017 Patient spiked fever today at 101.2. And he has progressive cough. Patient continued to feel generally weak. Elevation of the left hand diaphragm possible pleural effusion and/or infiltrate 08/19/2017 Patient was started on Neupogen, his white cell count is up today to 9K. Patient is still have fever today but it's lower temperature at 100.1. Patient still complaining of from dry cough and no other complaints. No chest pain. No dyspnea. His chest repeat chest x-ray shows elevated left hemidiaphragm and possible effusion versus infiltrate in the left lung base. Cultures so far negative. at bedside states patient is due for follow-up CAT scan on Wednesday Objective - Vital Signs Vital signs: Vital Signs Temp 100.1 F H 08/19/17 08:55 Pulse 84 08/19/17 06:00 Resp 18 08/19/17 06:00 BP 137/71 08/19/17 06:00 Pulse Ox 94 L 08/19/17 06:00 Intake & Output 08/18/17 08/19/17 08/19/17 18:59 06:59 18:59 Intake Total 1200 1550 Balance 1200 1550 Intake: Intake, IV Titration 1200 950 Amount Piperacillin-Tazobactam 3 50 .375 gm In Dextrose/Water 1 50ml.bag @ 12.5 mls/hr IVPB Q8HR [facility] Rx#: [id number] Sodium Chloride 0.9% 1, 1200 900 000 ml @ 150 mls/hr IV . Q6H40M [facility] Rx#:[id number] Oral 600 Other: # Voids 5 1 # Bowel Movements 0 - Exam GENERAL: The patient is alert and oriented x3, not in any acute distress. Well developed, well nourished. HEENT: Pupils are round and equally reacting to light. EOMI. No scleral icterus. No conjunctival pallor. Normocephalic, atraumatic. No pharyngeal erythema. No thyromegaly. CARDIOVASCULAR: S1 and S2 present. No murmurs, rubs, or gallops. -PULMONARY: Chest is clear to auscultation, no wheezing or crackles. , Port-A- Cath in the left upper chest ABDOMEN: Soft, nontender, nondistended, normoactive bowel sounds. No palpable organomegaly. MUSCULOSKELETAL: No joint swelling or deformity. EXTREMITIES: No cyanosis, clubbing, or pedal edema. NEUROLOGICAL: Gross neurological examination did not reveal any focal deficits. SKIN: No rashes. - Labs CBC & Chem 7: 08/19/17 07:00 08/19/17 07:00 Labs: Abnormal Lab Results - Last 24 Hours (Table) 08/18/17 08/18/17 08/18/17 Range/Units 06:43 06:43 12:40 WBC 2.1 L 3.7 L (3.8-10.6) k/uL RBC 3.10 L 3.48 L (4.30-5.90) m/uL Hgb 7.7 L 8.7 L (13.0-17.5) gm/dL Hct 25.2 L 27.9 L (39.0-53.0) % MCHC 30.8 L (31.0-37.0) g/dL RDW 20.6 H (11.5-15.5) % Neutrophils # (1.3-7.7) k/uL Lymphocytes # (1.0-4.8) k/uL Lymphocytes # (Manual) 0.30 L (1.0-4.8) k/uL Sodium 134 L (137-145) mmol/L Carbon Dioxide 21 L (22-30) mmol/L BUN 8 L (9-20) mg/dL Creatinine 0.62 L (0.66-1.25) mg/dL Glucose (74-99) mg/dL Calcium 7.8 L (8.4-10.2) mg/dL Total Protein 4.4 L (6.3-8.2) g/dL Albumin 2.2 L (3.5-5.0) g/dL 08/19/17 08/19/17 Range/Units 07:00 07:00 WBC (3.8-10.6) k/uL RBC 3.38 L (4.30-5.90) m/uL Hgb 8.5 L (13.0-17.5) gm/dL Hct 27.2 L (39.0-53.0) % MCHC (31.0-37.0) g/dL RDW 20.9 H (11.5-15.5) % Neutrophils # 7.9 H (1.3-7.7) k/uL Lymphocytes # 0.3 L (1.0-4.8) k/uL Lymphocytes # (Manual) (1.0-4.8) k/uL Sodium (137-145) mmol/L Carbon Dioxide (22-30) mmol/L BUN 8 L (9-20) mg/dL Creatinine (0.66-1.25) mg/dL Glucose 107 H (74-99) mg/dL Calcium 8.1 L (8.4-10.2) mg/dL Total Protein 4.5 L (6.3-8.2) g/dL Albumin 2.3 L (3.5-5.0) g/dL Microbiology - Last 24 Hours (Table) 08/15/17 20:10 Blood Culture - Preliminary Blood No Growth after 72 hours 08/16/17 12:29 Blood Culture - Preliminary Blood No Growth after 48 hours 08/16/17 12:44 Blood Culture - Preliminary Blood No Growth after 48 hours Assessment and Plan Assessment: -Of unknown origin, possible sepsis. -Pancreatic cancer, on chemotherapy. -Status post 3 stents in the biliary system, history of ERCP -Pancytopenia, history of recent chemotherapy 1 week prior to admission Plan: Patient presents with fever of one-day duration, similar to problems about 2 months ago. Continue with the same and treatment. Continue with symptomatic treatment. Temperature could be controlled with ibuprofen. Patient to continue on Zosyn. Infectious disease, heme oncology and GI input is appreciated. Continue with IV fluids and antibiotics. UA was unremarkable for infection. Patient continued to spike fever, repeat chest x-ray: Possible left lower infiltrate Patient has no diarrhea. Port-A-Cath in place in the left upper chest. Patient has a worsening dry cough, continue symptomatic treatment. ID team following the patient Continue with DVT and GI prophylaxis. Further recommendation based on the clinical course. Prognosis is guarded. CODE STATUS discussed with the patient and he confirms to me he is DO NOT RESUSCITATE/DO NOT RESUSCITATE
[2017-08-19] MEDS: IBUPROFEN 600 MG TAB PO PRN (15:36)
[2017-08-19] MEDS: FILGRASTIM-SNDZ 480 MCG/0.8 ML SYRINGE SQ SCH (22:16)
[2017-08-19] MEDS ORDERED: FUROSEMIDE 10 MG/ML 2 ML VIAL IV STA (23:44)
--- NOTE | 2017-08-19 23:44 | P.PN ---
Subjective Progress Note Date: 08/19/17 This is a 66-year-old male who has a past medical history significant for pancreatic cancer currently on chemotherapy under the care of Dr. Dominguez diagnosed in February 2015. He is on Gemzar for 3 weeks and off 1 week. He had a recent hospitalization March 01 through March 04 with obstruction of the biliary tract. He was discharged home on Levaquin for 7 days. As antibiotic therapy completed he again became ill and febrile and presented back to the hospital. He can have evidence of sepsis and was placed on antibiotic therapy. He was having some improvement but then had a sudden increase of his total bilirubin and constantly was transferred to his hepatology Center at [facility] for evaluation of his pancreatic stent. This occurred and there was evidence of some blockage in the stent was recannulated and he's done well since. He is now back on a course of chemotherapy receiving 3 weeks on 1 week off. He's been having some alterations of his temperature and an ongoing basis thought to be due to the chemotherapy. He is feeling relatively poorly. He was due for further chemotherapy but spiked a high-grade fever over 103 and calcium was brought into the emergency center and admitted admitted. Antibiotic therapy was initiated based on his prior cultures and concerns to obstruction of the biliary tract from his stent that was recently manipulated and recannulated but not replaced. He is feeling the best he has in quite some time actually today. His fevers improved with the Motrin and his appetite improved and he relates that he's not receive chemo he is definitely feeling a bit better. Cultures are processing negative so far. The bilirubin peaked at 0.7 now at 0.4. The alk phos peaked at 149 now at 105. AST ALT are generally normal. 08/17/2017 reveals the patient to be doing somewhat better but is having some fevers up to 101.8. Pain control with anti-inflammatory. Patient generally is having some improvement does have some leukopenia. Denies other new symptoms. 08/18/2017 patient is feeling rather well but continues to have fever again having 101.8 fever this afternoon. When he has his fever he feels poorly but in between is feeling relatively well. Appetite is adequate. He is not having chills or rigors. Continues to have a normal bilirubin as well as a normal alk phos and AST, ALT. No positive cultures. 08/19/2017 patient with fever after Nupogen injection last evening , now resolved but is with fluid retention. Objective - Vital Signs Vital signs: Vital Signs Temp 98.9 F 08/19/17 21:15 Pulse 108 H 08/19/17 21:15 Resp 18 08/19/17 21:15 BP 134/68 08/19/17 21:15 Pulse Ox 94 L 08/19/17 14:20 Intake & Output 08/19/17 08/19/17 08/20/17 06:59 18:59 06:59 Intake Total 1550 Balance 1550 Intake: Intake, IV Titration 950 Amount Piperacillin-Tazobactam 3 50 .375 gm In Dextrose/Water 1 50ml.bag @ 12.5 mls/hr IVPB Q8HR [facility] Rx#: [id number] Sodium Chloride 0.9% 1, 900 000 ml @ 150 mls/hr IV . Q6H40M [facility] Rx#:[id number] Oral 600 Other: # Voids 1 1 # Bowel Movements 1 - Exam Pleasant 67-year-old male who's had some weight loss since last evaluation but does not appear to be acutely ill at this time., Actually this up as he's felt in some time. HEENT: Anicteric conjunctiva are pink and moist nasal mucosa grossly intact without significant lesions, there is no thrush. Neck: The neck is supple without significant lymphadenopathy or thyromegaly. Lungs: Good bilateral air entry without significant wheezing few crackles at the left base. There is no significant bronchial sounds. There is no egophony or dullness. Heart: Regular rate and rhythm with an audible S1-S2, no S3 no S4. There is no significant murmur click or rub, PMI was nondisplaced. Abdomen: Positive bowel sounds soft and nontender without palpable masses or organomegaly. There was no guarding or rebound. Extremities: The upper extremities have excellent pulses they are symmetric, no significant petechiae or telangiectasia. No splinter hemorrhages were noted. The lower extremitieshave developed edema. The peripheral pulses were 2+ and symmetric. Neuro: Awake alert oriented to person place and time. There are no acute new gross focal sensory motor deficits. - Labs CBC & Chem 7: 08/19/17 07:00 08/19/17 07:00 Labs: Abnormal Lab Results - Last 24 Hours (Table) 08/19/17 08/19/17 Range/Units 07:00 07:00 RBC 3.38 L (4.30-5.90) m/uL Hgb 8.5 L (13.0-17.5) gm/dL Hct 27.2 L (39.0-53.0) % RDW 20.9 H (11.5-15.5) % Neutrophils # 7.9 H (1.3-7.7) k/uL Lymphocytes # 0.3 L (1.0-4.8) k/uL BUN 8 L (9-20) mg/dL Glucose 107 H (74-99) mg/dL Calcium 8.1 L (8.4-10.2) mg/dL Total Protein 4.5 L (6.3-8.2) g/dL Albumin 2.3 L (3.5-5.0) g/dL Microbiology - Last 24 Hours (Table) 08/15/17 20:10 Blood Culture - Preliminary Blood No Growth after 96 hours 08/18/17 16:26 Blood Culture - Preliminary Blood No Growth after 24 hours 08/16/17 12:29 Blood Culture - Preliminary Blood No Growth after 72 hours 08/16/17 12:44 Blood Culture - Preliminary Blood No Growth after 72 hours Laboratory Results WBC 9.6 k/uL (3.8-10.6) 08/19/17 07:00 RBC 3.38 m/uL (4.30-5.90) L 08/19/17 07:00 Hgb 8.5 gm/dL (13.0-17.5) L 08/19/17 07:00 Hct 27.2 % (39.0-53.0) L 08/19/17 07:00 MCV 80.4 fL (80.0-100.0) 08/19/17 07:00 MCH 25.3 pg (25.0-35.0) 08/19/17 07:00 MCHC 31.4 g/dL (31.0-37.0) 08/19/17 07:00 RDW 20.9 % (11.5-15.5) H 08/19/17 07:00 Plt Count 247 k/uL (150-450) 08/19/17 07:00 Neutrophils % 82 % 08/19/17 07:00 Neutrophils % (Manual) 65 % 08/18/17 12:40 Band Neutrophils % 1 % 08/18/17 12:40 Lymphocytes % 3 % 08/19/17 07:00 Lymphocytes % (Manual) 8 % 08/18/17 12:40 Monocytes % 10 % 08/19/17 07:00 Monocytes % (Manual) 22 % 08/18/17 12:40 Eosinophils % 1 % 08/19/17 07:00 Eosinophils % (Manual) 4 % 08/18/17 12:40 Basophils % 0 % 08/19/17 07:00 Neutrophils # 7.9 k/uL (1.3-7.7) H 08/19/17 07:00 Neutrophils # (Manual) 2.40 k/uL (1.3-7.7) 08/18/17 12:40 Lymphocytes # 0.3 k/uL (1.0-4.8) L 08/19/17 07:00 Lymphocytes # (Manual) 0.30 k/uL (1.0-4.8) L 08/18/17 12:40 Monocytes # 1.0 k/uL (0-1.0) 08/19/17 07:00 Monocytes # (Manual) 0.81 k/uL (0-1.0) 08/18/17 12:40 Eosinophils # 0.1 k/uL (0-0.7) 08/19/17 07:00 Eosinophils # (Manual) 0.15 k/uL (0-0.7) 08/18/17 12:40 Basophils # 0.0 k/uL (0-0.2) 08/19/17 07:00 Nucleated RBCs 0 /100 WBC (0-0) 08/18/17 12:40 Manual Slide Review Performed 08/18/17 12:40 Dimorphic RBCs Present 08/17/17 07:27 Polychromasia Present 08/18/17 12:40 Hypochromasia Moderate 08/19/17 07:00 Poikilocytosis Slight 08/19/17 07:00 Poikilocytosis (manual Present 08/18/17 12:40 Anisocytosis Moderate 08/19/17 07:00 Microcytosis Slight 08/19/17 07:00 Ovalocytes Present 08/17/17 07:27 Fragmented RBCs Present 08/17/17 07:27 Haptoglobin 296.0 mg/dL (31.2-198.0) H 08/15/17 20:10 Sodium 137 mmol/L (137-145) 08/19/17 07:00 Potassium 3.9 mmol/L (3.5-5.1) 08/19/17 07:00 Chloride 107 mmol/L (98-107) 08/19/17 07:00 Carbon Dioxide 22 mmol/L (22-30) 08/19/17 07:00 Anion Gap 8 mmol/L 08/19/17 07:00 BUN 8 mg/dL (9-20) L 08/19/17 07:00 Creatinine 0.66 mg/dL (0.66-1.25) 08/19/17 07:00 Est GFR (CKD-EPI)AfAm >90 (>60 ml/min/1.73 sqM) 08/19/17 07:00 Est GFR (CKD-EPI)NonAf >90 (>60 ml/min/1.73 sqM) 08/19/17 07:00 Glucose 107 mg/dL (74-99) H 08/19/17 07:00 Lactic Ac Sepsis Rflx Y 08/15/17 20:47 Plasma Lactic Acid Paddy 1.3 mmol/L (0.7-2.0) 08/16/17 02:10 Calcium 8.1 mg/dL (8.4-10.2) L 08/19/17 07:00 Total Bilirubin 0.3 mg/dL (0.2-1.3) 08/19/17 07:00 AST 25 U/L (17-59) 08/19/17 07:00 ALT 38 U/L (21-72) 08/19/17 07:00 Alkaline Phosphatase 106 U/L (38-126) 08/19/17 07:00 Lactate Dehydrogenase 557 U/L (313-618) 08/15/17 20:10 Total Protein 4.5 g/dL (6.3-8.2) L 08/19/17 07:00 Albumin 2.3 g/dL (3.5-5.0) L 08/19/17 07:00 Urine Color Yellow 08/15/17 21:50 Urine Appearance Clear (Clear) 08/15/17 21:50 Urine pH 5.5 (5.0-8.0) 08/15/17 21:50 Ur Specific Homer 1.018 (1.001-1.035) 08/15/17 21:50 Urine Protein Trace (Negative) H 08/15/17 21:50 Urine Glucose (UA) Negative (Negative) 08/15/17 21:50 Urine Ketones Negative (Negative) 08/15/17 21:50 Urine Blood Negative (Negative) 08/15/17 21:50 Urine Nitrite Negative (Negative) 08/15/17 21:50 Urine Bilirubin Negative (Negative) 08/15/17 21:50 Urine Urobilinogen 2.0 mg/dL (<2.0) 08/15/17 21:50 Ur Leukocyte Esterase Negative (Negative) 08/15/17 21:50 Microbiology 08/15/17 20:10 Blood Blood Culture - Preliminary No Growth after 96 hours 08/18/17 16:26 Blood Blood Culture - Preliminary No Growth after 24 hours 08/16/17 12:29 Blood Blood Culture - Preliminary No Growth after 72 hours 08/16/17 12:44 Blood Blood Culture - Preliminary No Growth after 72 hours 08/15/17 21:50 Urine,Voided Urine Culture - Final - Imaging and Cardiology Chest x-ray: report reviewed (effusion left base) Assessment and Plan (1) Anahy-ampullary carcinoma Current Visit: No Status: Acute Code(s): C24.8 - MALIGNANT NEOPLASM OF OVERLAPPING SITES OF BILIARY TRACT SNOMED Code(s): 156976001 (2) Pancreatic mass Current Visit: No Status: Acute Priority: High Code(s): K86.9 - DISEASE OF PANCREAS, UNSPECIFIED SNOMED Code(s): 403693012 (3) Cholangitis, recurrent Narrative/Plan: 67-year-old male that has a history of the periampullary pancreatic cancer who's been followed closely at [facility] and has been receiving chemotherapy, currently 3 weeks on 1 week off. He was due for chemotherapy today but he developed increasing fever and was a bit ill and constantly was brought to the hospital. Antibiotics have been started, chemotherapy was held and he is being monitored. Fortunately his total bilirubin increased minimally and is now are the improving. His alkaline phosphatase as well as his AST and ALT are also improved. With this it is less likely that he has a partially obstructed biliary stent and then in the past he would just have rapidly increasing alk phos and total bilirubin. A mild infection related to his recent chemotherapy seems to be the most likely etiology. Antibiotic therapy is being utilized with piperacillin/tazobactam that was tolerated quite well in the past. All cultures are pending and negative so far. Blood work will be monitored and there is a potential that he would be treated with outpatient intravenous antibiotic therapy over the next week or so. He would then have this repeated scans from his oncologist and then be followed in the oncologist office for an overall plan. The patient did voices of the best he has felt in some time and relates it to not receiving chemotherapy. It is unclear at this time what his overall plan will be, his however would certainly like to have further chemotherapy given. 08/17/2017 patient still having fevers today. This is being discussed with the oncologist. Considering the possibility of addition of Neupogen giving his leukopenia and ongoing fevers. Cultures are negative and alk phos, AST, ALT and total bili are all normal. No other obvious source of infection at this time. Does not appear to have obstruction of the biliary tract at this time. Continue current antibiotic and monitor. Apparently will have a follow-up computed tomography scan in Wednesday and then determine next course of action. 08/18/2017 this situation discussed with oncology and they agree that a dose of Neupogen may be helpful given his relative immunocompromise and ongoing fever and relative leukopenia. This should be started and patient will be monitored. When his fever he feels somewhat poorly. There is no elevation of his bilirubin or alk phos and consequently ongoing or recurrent obstruction of his biliary tract seems to be very unlikely at this time. The fevers could be medication induced, ill give afrom the underlying progression of his cancer, or related to his relative neutropenia. A dose of Neupogen hopefully will resolve neutropenia and potentially his fevers. If he continues to have fever without any other significant focus of infection, we worry about effects of his chemotherapy and the tumor itself. He is due for follow-up computed tomography scan this coming Wednesday and follow-up with oncologist on Wednesday. 08/19/2017 patient had nupogen and developed fever which is now resolved and feeling better except for edema and some shortness of breath.WBC responded well and fevers resolved. No further doses needed. Will give a dose of lasix for edema. will work toward oral antibiotics for home soon. Current Visit: No Status: Acute Code(s): K83.0 - CHOLANGITIS SNOMED Code(s ): 36030056 (4) Fever Current Visit: Yes Status: Acute Priority: High Code(s): R50.9 - FEVER, UNSPECIFIED SNOMED Code(s): 119859061
[2017-08-20] MEDS: PIPERACILLIN-TAZOBACTAM 3.375 GM in DEXTROSE/WATER 1 50ML.BAG IVPB SCH ×3 (00:19→15:47)
[2017-08-20] MEDS: IBUPROFEN 600 MG TAB PO PRN ×2 (02:29→17:52)
[2017-08-20] MEDS: LEVOTHYROXINE 100 MCG TAB PO SCH (06:13)
[2017-08-20 07:25] LABS: ALT 37 U/L (21-72); AST 28 U/L (17-59); Albumin 2.2 g/dL (3.5-5.0); Alkaline Phosphatase 107 U/L (38-126); Anion Gap 6 mmol/L; Blood Urea Nitrogen 8 mg/dL (9-20); Calcium 8.2 mg/dL (8.4-10.2); Carbon Dioxide 27 mmol/L (22-30); Chloride 104 mmol/L (98-107); Glucose 84 mg/dL (74-99); Sodium 137 mmol/L (137-145); Total Bilirubin 0.4 mg/dL (0.2-1.3); Total Protein 4.3 g/dL (6.3-8.2)
[2017-08-20] MEDS: SODIUM CHLORIDE 0.9% 1,000 ML IV SCH ×3 (07:36→15:45)
--- NOTE | 2017-08-20 09:27 | US ---
EXAMINATION TYPE: US liver DATE OF EXAM: 08/20/2017 COMPARISON: CT abdomen and pelvis May 28, 2017 CLINICAL HISTORY: persistent fever, has biliary stents. Fever, CA of biliary system, history of CBD s tent to duodenum, liver mass seen on previous US and CT, patient not NPO - had Boost protein drink be fore exam. EXAM MEASUREMENTS: Liver Length: 13.0 cm Gallbladder Wall: 0.3 cm CBD: 0.6 cm Right Kidney: 10.6 x 5.0 x 5.1 cm Pancreas: obscured by overlying midline bowel gas Liver: heterogeneous with 4.4 x 4.2 x 3.5cm ill defined hypoechoic mass right lobe, hyperechoic echo es seen throughout liver ? air in biliary tree vs. other Gallbladder: hyperechoic echoes seen, wall borderline dilated at 0.3cm, 0.4cm echogenic focus seen w ithin wall, patient not NPO Evidence for sonographic Cunha's sign: no CBD: borderline dilated at 0.6cm Right Kidney: wnl Pancreas is suboptimally evaluated on images saved secondary to shadowing from overlying bowel gas. V isualized liver is heterogeneous making evaluation for focal masses suboptimal. Vague 4.4 cm hypoecho ic area right hepatic lobe is marked by technologist's likely correlating with known neoplasm on CT. Pneumobilia is presumed present though not well identified likely best seen near image 62. No new int rahepatic ductal dilatation is clearly seen. Common bile duct remains within normal limits and stable . Gallbladder shows no shadowing mobile gallstones. IMPRESSION: Suboptimal study, no new intrahepatic ductal dilatation is evident.
[2017-08-20] MEDS: HEPARIN SODIUM,PORCINE 5,000 UNIT/ML 1 ML VIAL SQ SCH ×3 (09:33→20:36)
[2017-08-20] MEDS: guaiFENesin 600 MG TABLET.ER PO SCH ×2 (09:33→20:36)
[2017-08-20] MEDS: URSODIOL 300 MG CAP PO SCH ×2 (09:33→20:36)
[2017-08-20] MEDS: DOCUSATE 100 MG CAP PO SCH ×2 (09:33→20:36)
[2017-08-20] MEDS: PANTOPRAZOLE 40 MG TABLET PO SCH (09:33)
[2017-08-20] MEDS: ACETAMINOPHEN TAB 325 MG TAB PO PRN ×2 (10:32→19:20)
--- NOTE | 2017-08-20 15:44 | P.PN ---
Subjective Progress Note Date: 08/20/17 The patient overall feels better. He has not had an overt fever of 100.4 or more since 0045 yesterday. No history of any nausea or vomiting or diarrhea. Denies any abdominal pain . appetite is improved. Objective - Vital Signs Vital signs: Vital Signs Temp 98.4 F 08/20/17 05:00 Pulse 76 08/20/17 05:00 Resp 16 08/20/17 05:00 BP 121/58 08/20/17 05:00 Pulse Ox 93 L 08/20/17 05:00 Intake & Output 08/19/17 08/20/17 08/20/17 18:59 06:59 18:59 Weight 86.183 kg Other: Voiding Method Toilet Toilet # Voids 1 # Bowel Movements 1 - Constitutional General appearance: Present: no acute distress - EENT Eyes: Present: EOMI ENT: Present: hearing grossly normal, normal oropharynx - Respiratory Respiratory: bilateral: CTA - Cardiovascular Rhythm: regular Heart sounds: normal: S1, S2 - Gastrointestinal General gastrointestinal: Present: normal bowel sounds, soft - Integumentary Integumentary: Present: normal - Neurologic Neurologic: Present: CNII-XII intact - Musculoskeletal Musculoskeletal: Present: strength equal bilaterally - Psychiatric Psychiatric: Present: A&O x's 3, appropriate affect - Labs CBC & Chem 7: 08/19/17 07:00 08/20/17 06:41 Labs: Abnormal Lab Results - Last 24 Hours (Table) 08/20/17 Range/Units 06:41 BUN 8 L (9-20) mg/dL Calcium 8.2 L (8.4-10.2) mg/dL Total Protein 4.3 L (6.3-8.2) g/dL Albumin 2.2 L (3.5-5.0) g/dL Microbiology - Last 24 Hours (Table) 08/16/17 12:29 Blood Culture - Preliminary Blood No Growth after 96 hours 08/16/17 12:44 Blood Culture - Preliminary Blood No Growth after 96 hours 08/15/17 20:10 Blood Culture - Preliminary Blood No Growth after 96 hours 08/18/17 16:26 Blood Culture - Preliminary Blood No Growth after 24 hours Assessment and Plan (1) Fever Narrative/Plan: The patient had been having persistent fevers, despite aggressive treatment for his recurrent cholangitis. The source was not immediately evident. He did receive filgrastim with normalization of his WBC. As noted he has not had recurrent fever since early yesterday a.m. Liver enzyme the staining persistently normal since admission. He had an ultrasound of the abdomen repeated but showed no evidence of any progressive biliary obstruction. Defer to ID regarding his antibiotic treatment. Agree with their plan of discharging the patient if fever resolves. Drug-induced or tumor related fever , as well as fever due to cytokine release from impending and then ongoing white count recovery remains in the differential. Current Visit: Yes Status: Acute Priority: High Code(s): R50.9 - FEVER, UNSPECIFIED SNOMED Code(s): 244365804 (2) Cholangitis, recurrent Narrative/Plan: Liver enzymes improved fairly quickly after initiation of antibiotics. Repeat ultrasound showed no progressive obstruction. Therefore it does not appear to be an ongoing problem. Current Visit: No Status: Acute Code(s): K83.0 - CHOLANGITIS SNOMED Code(s ): 84872341 (3) Pancreatic cancer Narrative/Plan: He has been tolerating treatment well subjectively. He will continue the same, after resolution of his acute problem Current Visit: No Status: Chronic Priority: Medium Code(s): C25.9 - MALIGNANT NEOPLASM OF PANCREAS, UNSPECIFIED SNOMED Code(s): 491501164 (4) Pancytopenia due to antineoplastic chemotherapy Narrative/Plan: WBC and platelets have normalized. The patient is still anemic but hemoglobin has improved and remains in a safe range with no need for transfusion currently Current Visit: Yes Status: Acute Code(s): D61.810 - ANTINEOPLASTIC CHEMOTHERAPY INDUCED PANCYTOPENIA; T45.1X5A - ADVERSE EFFECT OF ANTINEOPLASTIC AND IMMUNOSUP DRUGS, INIT SNOMED Code(s): 433293518207524
--- NOTE | 2017-08-20 17:56 | P.PN ---
Subjective Progress Note Date: 08/20/17 Principal diagnosis: Pancreatic cancer/ cholangitis/ sepsis This this is a pleasant 67 years old male with past medical history of pancreatic cancer diagnosed in February 2059, testicular cancer, hypothyroidism. Patient is status post ERCP and he had weakness in his biliary tract. Patient is currently on chemotherapy. He presents last night because of fever 103.0. Patient was admitted twice with similar problem. In the last few months. At that time suspected to have sepsis secondary to biliary infection and was treated with antibiotics. Patient denies abdominal pain. No change in bowel habits. No urinary complaints. No nausea or vomiting. No chest pain or dyspnea. No headache or focal neurological complaints has no weakness. No back pain. No abnormal sensation. No pleural effusions or difficulty swallowing. Patient has Port-A-Cath in the left upper chest and he got chemotherapy last week Patient was admitted for IV antibiotic treatment; his pancytopenia remained stable; blood cultures are negative so far Hematology started patient on Neupogen; patient did have episode of low-grade temperature around 100; repeat chest x-ray shows elevated left hemidiaphragm and possible effusion versus infiltrate in left lung; patient is for CT of the chest on Wednesday Objective - Vital Signs Vital signs: Vital Signs Temp 99.1 F 08/20/17 15:00 Pulse 83 08/20/17 15:00 Resp 16 08/20/17 15:00 BP 168/82 08/20/17 15:00 Pulse Ox 95 08/20/17 15:00 Intake & Output 08/19/17 08/20/17 08/20/17 18:59 06:59 18:59 Intake Total 50 Balance 50 Weight 86.183 kg Intake: Intake, IV Titration 50 Amount Piperacillin-Tazobactam 3 50 .375 gm In Dextrose/Water 1 50ml.bag @ 12.5 mls/hr IVPB Q8HR [facility] Rx#: [id number] Other: Voiding Method Toilet Toilet # Voids 1 # Bowel Movements 1 - Exam - Constitutional General appearance: Present: average body habitus, cooperative, no acute distress - EENT Eyes: Present: anicteric sclerae, EOMI, PERRLA, normal appearance ENT: Present: hearing grossly normal, normal oropharynx Ears: bilateral: normal - Neck Neck: Present: normal ROM. Absent: lymphadenopathy, rigidity, thyromegaly Carotids: negative: bruit present Thyroid: bilateral: normal size, negative: enlarged, nodule - Respiratory Respiratory: bilateral: CTA, negative: rales, rhonchi, wheezing - Cardiovascular Rhythm: regular Heart sounds: normal: S1, S2 Abnormal Heart Sounds: Absent: systolic murmur, diastolic murmur - Gastrointestinal General gastrointestinal: Present: normal bowel sounds, soft. Absent: distended , organomegaly, tenderness - Genitourinary Genitourinary Comment(s): deferred - Integumentary Integumentary: Present: normal turgor. Absent: jaundiced, rash, ulcer - Neurologic Neurologic: Present: CNII-XII intact. Absent: focal deficits - Musculoskeletal Musculoskeletal: Present: gait normal, strength equal bilaterally - Psychiatric Psychiatric: Present: A&O x's 3, appropriate affect, intact judgment & insight - Labs CBC & Chem 7: 08/19/17 07:00 08/20/17 06:41 Labs: Abnormal Lab Results - Last 24 Hours (Table) 08/20/17 Range/Units 06:41 BUN 8 L (9-20) mg/dL Calcium 8.2 L (8.4-10.2) mg/dL Total Protein 4.3 L (6.3-8.2) g/dL Albumin 2.2 L (3.5-5.0) g/dL Microbiology - Last 24 Hours (Table) 08/16/17 12:29 Blood Culture - Preliminary Blood No Growth after 96 hours 08/16/17 12:44 Blood Culture - Preliminary Blood No Growth after 96 hours 08/15/17 20:10 Blood Culture - Preliminary Blood No Growth after 96 hours 08/18/17 16:26 Blood Culture - Preliminary Blood No Growth after 24 hours Assessment and Plan Assessment: 1. Possible cholangitis/sepsis. 2. Pancreatic cancer, on chemotherapy. 3. Status post 3 stents in the biliary system, history of ERCP 4. Pancytopenia, history of recent chemotherapy 1 week prior to admission Plan: Patient presents with fever of one-day duration, similar to problems about 2 months ago. Continue with the same and treatment. Continue with symptomatic treatment. Temperature could be controlled with ibuprofen. Patient to continue on Zosyn. Infectious disease, heme oncology and GI input is appreciated. Continue with IV fluids and antibiotics. UA was unremarkable for infection. Patient continued to spike fever, repeat chest x-ray: Possible left lower infiltrate Patient has no diarrhea. Port-A-Cath in place in the left upper chest. Patient has a worsening dry cough, continue symptomatic treatment. ID team following the patient Continue with DVT and GI prophylaxis. Further recommendation based on the clinical course. Prognosis is guarded. CODE STATUS discussed with the patient and he confirms to me he is DO NOT RESUSCITATE/DO NOT RESUSCITATE Time with Patient: Greater than 30
[2017-08-20 19:50] LABS: Anisocytosis Moderate; Basophils # (A) 0.1 k/uL (0-0.2); Basophils % (A) 0 %; Eosinophils # (A) 0.2 k/uL (0-0.7); Eosinophils % (A) 2 %; HCT 27.3 % (39.0-53.0); HGB 8.3 gm/dL (13.0-17.5); Hypochromasia Marked; Lymphocytes # (A) 0.6 k/uL (1.0-4.8); Lymphocytes % (A) 4 %; MCH 24.7 pg (25.0-35.0); MCHC 30.2 g/dL (31.0-37.0); MCV 81.7 fL (80.0-100.0); Mean Platelet Volume 6.4; Microcytosis Slight; Monocytes # (A) 1.2 k/uL (0-1.0); Monocytes % (A) 10 %; Neutrophils # (A) 10.3 k/uL (1.3-7.7); Neutrophils % (A) 80 %; Platelet Count 385 k/uL (150-450); Poikilocytosis Slight; RBC 3.34 m/uL (4.30-5.90); RDW 21.4 % (11.5-15.5); WBC 12.8 k/uL (3.8-10.6)
[2017-08-20] MEDS: LACTATED RINGERS 1,000 ML IV SCH (20:30)
[2017-08-20] MEDS: MEROPENEM 1 GM in SODIUM CHLORIDE 0.9% 100 ML IVPB SCH (20:30)
--- NOTE | 2017-08-20 22:56 | P.PN ---
Subjective Progress Note Date: 08/20/17 This is a 66-year-old male who has a past medical history significant for pancreatic cancer currently on chemotherapy under the care of Dr. Dominguze diagnosed in February 2015. He is on Gemzar for 3 weeks and off 1 week. He had a recent hospitalization March 01 through March 04 with obstruction of the biliary tract. He was discharged home on Levaquin for 7 days. As antibiotic therapy completed he again became ill and febrile and presented back to the hospital. He can have evidence of sepsis and was placed on antibiotic therapy. He was having some improvement but then had a sudden increase of his total bilirubin and constantly was transferred to his hepatology Center at [facility] for evaluation of his pancreatic stent. This occurred and there was evidence of some blockage in the stent was recannulated and he's done well since. He is now back on a course of chemotherapy receiving 3 weeks on 1 week off. He's been having some alterations of his temperature and an ongoing basis thought to be due to the chemotherapy. He is feeling relatively poorly. He was due for further chemotherapy but spiked a high-grade fever over 103 and calcium was brought into the emergency center and admitted admitted. Antibiotic therapy was initiated based on his prior cultures and concerns to obstruction of the biliary tract from his stent that was recently manipulated and recannulated but not replaced. He is feeling the best he has in quite some time actually today. His fevers improved with the Motrin and his appetite improved and he relates that he's not receive chemo he is definitely feeling a bit better. Cultures are processing negative so far. The bilirubin peaked at 0.7 now at 0.4. The alk phos peaked at 149 now at 105. AST ALT are generally normal. 08/17/2017 reveals the patient to be doing somewhat better but is having some fevers up to 101.8. Pain control with anti-inflammatory. Patient generally is having some improvement does have some leukopenia. Denies other new symptoms. 08/18/2017 patient is feeling rather well but continues to have fever again having 101.8 fever this afternoon. When he has his fever he feels poorly but in between is feeling relatively well. Appetite is adequate. He is not having chills or rigors. Continues to have a normal bilirubin as well as a normal alk phos and AST, ALT. No positive cultures. 08/19/2017 patient with fever after Nupogen injection last evening , now resolved but is with fluid retention. 08/20/2017 patient was having a good day until this PM then developed fever and now feels poorly. Weak and tired but no new symptoms still dry cough at times. Objective - Vital Signs Vital signs: Vital Signs Temp 100.8 F H 08/20/17 17:51 Pulse 83 08/20/17 15:00 Resp 16 08/20/17 15:00 BP 168/82 08/20/17 15:00 Pulse Ox 95 08/20/17 15:00 Intake & Output 08/20/17 08/20/17 08/21/17 06:59 18:59 06:59 Intake Total 50 Balance 50 Weight 86.183 kg Intake: Intake, IV Titration 50 Amount Piperacillin-Tazobactam 3 50 .375 gm In Dextrose/Water 1 50ml.bag @ 12.5 mls/hr IVPB Q8HR [facility] Rx#: [id number] Other: Voiding Method Toilet Toilet # Voids 1 - Exam Pleasant 67-year-old male feeling poorly at this time HEENT: Anicteric conjunctiva are pink and moist nasal mucosa grossly intact without significant lesions, there is no thrush. Neck: The neck is supple without significant lymphadenopathy or thyromegaly. Lungs: Good bilateral air entry without significant wheezing few crackles at the left base. There is no significant bronchial sounds. There is no egophony or dullness. Heart: Regular rate and rhythm with an audible S1-S2, no S3 no S4. There is no significant murmur click or rub, PMI was nondisplaced. Abdomen: Positive bowel sounds soft and nontender without palpable masses or organomegaly. There was no guarding or rebound. Extremities: The upper extremities have excellent pulses they are symmetric, no significant petechiae or telangiectasia. No splinter hemorrhages were noted. The lower extremitieshave developed edema. The peripheral pulses were 2+ and symmetric. Neuro: Awake alert oriented to person place and time. There are no acute new gross focal sensory motor deficits. - Labs CBC & Chem 7: 08/20/17 19:39 08/20/17 06:41 Labs: Abnormal Lab Results - Last 24 Hours (Table) 08/20/17 08/20/17 Range/Units 06:41 19:39 WBC 12.8 H (3.8-10.6) k/uL RBC 3.34 L (4.30-5.90) m/uL Hgb 8.3 L (13.0-17.5) gm/dL Hct 27.3 L (39.0-53.0) % MCH 24.7 L (25.0-35.0) pg MCHC 30.2 L (31.0-37.0) g/dL RDW 21.4 H (11.5-15.5) % Neutrophils # 10.3 H (1.3-7.7) k/uL Lymphocytes # 0.6 L (1.0-4.8) k/uL Monocytes # 1.2 H (0-1.0) k/uL BUN 8 L (9-20) mg/dL Calcium 8.2 L (8.4-10.2) mg/dL Total Protein 4.3 L (6.3-8.2) g/dL Albumin 2.2 L (3.5-5.0) g/dL Microbiology - Last 24 Hours (Table) 08/15/17 20:10 Blood Culture - Preliminary Blood No Growth after 120 hours 08/18/17 16:26 Blood Culture - Preliminary Blood No Growth after 48 hours 08/16/17 12:29 Blood Culture - Preliminary Blood No Growth after 96 hours 08/16/17 12:44 Blood Culture - Preliminary Blood No Growth after 96 hours Laboratory Results WBC 12.8 k/uL (3.8-10.6) H 08/20/17 19:39 RBC 3.34 m/uL (4.30-5.90) L 08/20/17 19:39 Hgb 8.3 gm/dL (13.0-17.5) L 08/20/17 19:39 Hct 27.3 % (39.0-53.0) L 08/20/17 19:39 MCV 81.7 fL (80.0-100.0) 08/20/17 19:39 MCH 24.7 pg (25.0-35.0) L 08/20/17 19:39 MCHC 30.2 g/dL (31.0-37.0) L 08/20/17 19:39 RDW 21.4 % (11.5-15.5) H 08/20/17 19:39 Plt Count 385 k/uL (150-450) 08/20/17 19:39 Neutrophils % 80 % 08/20/17 19:39 Neutrophils % (Manual) 65 % 08/18/17 12:40 Band Neutrophils % 1 % 08/18/17 12:40 Lymphocytes % 4 % 08/20/17 19:39 Lymphocytes % (Manual) 8 % 08/18/17 12:40 Monocytes % 10 % 08/20/17 19:39 Monocytes % (Manual) 22 % 08/18/17 12:40 Eosinophils % 2 % 08/20/17 19:39 Eosinophils % (Manual) 4 % 08/18/17 12:40 Basophils % 0 % 08/20/17 19:39 Neutrophils # 10.3 k/uL (1.3-7.7) H 08/20/17 19:39 Neutrophils # (Manual) 2.40 k/uL (1.3-7.7) 08/18/17 12:40 Lymphocytes # 0.6 k/uL (1.0-4.8) L 08/20/17 19:39 Lymphocytes # (Manual) 0.30 k/uL (1.0-4.8) L 08/18/17 12:40 Monocytes # 1.2 k/uL (0-1.0) H 08/20/17 19:39 Monocytes # (Manual) 0.81 k/uL (0-1.0) 08/18/17 12:40 Eosinophils # 0.2 k/uL (0-0.7) 08/20/17 19:39 Eosinophils # (Manual) 0.15 k/uL (0-0.7) 08/18/17 12:40 Basophils # 0.1 k/uL (0-0.2) 08/20/17 19:39 Nucleated RBCs 0 /100 WBC (0-0) 08/18/17 12:40 Manual Slide Review Performed 08/18/17 12:40 Dimorphic RBCs Present 08/17/17 07:27 Polychromasia Present 08/18/17 12:40 Hypochromasia Marked 08/20/17 19:39 Poikilocytosis Slight 08/20/17 19:39 Poikilocytosis (manual Present 08/18/17 12:40 Anisocytosis Moderate 08/20/17 19:39 Microcytosis Slight 08/20/17 19:39 Ovalocytes Present 08/17/17 07:27 Fragmented RBCs Present 08/17/17 07:27 Haptoglobin 296.0 mg/dL (31.2-198.0) H 08/15/17 20:10 Sodium 137 mmol/L (137-145) 08/20/17 06:41 Potassium 4.0 mmol/L (3.5-5.1) 08/20/17 06:41 Chloride 104 mmol/L (98-107) 08/20/17 06:41 Carbon Dioxide 27 mmol/L (22-30) 08/20/17 06:41 Anion Gap 6 mmol/L 08/20/17 06:41 BUN 8 mg/dL (9-20) L 08/20/17 06:41 Creatinine 0.66 mg/dL (0.66-1.25) 08/20/17 06:41 Est GFR (CKD-EPI)AfAm >90 (>60 ml/min/1.73 sqM) 08/20/17 06:41 Est GFR (CKD-EPI)NonAf >90 (>60 ml/min/1.73 sqM) 08/20/17 06:41 Glucose 84 mg/dL (74-99) 08/20/17 06:41 Lactic Ac Sepsis Rflx Y 08/15/17 20:47 Plasma Lactic Acid Paddy 1.3 mmol/L (0.7-2.0) 08/16/17 02:10 Calcium 8.2 mg/dL (8.4-10.2) L 08/20/17 06:41 Total Bilirubin 0.4 mg/dL (0.2-1.3) 08/20/17 06:41 AST 28 U/L (17-59) 08/20/17 06:41 ALT 37 U/L (21-72) 08/20/17 06:41 Alkaline Phosphatase 107 U/L (38-126) 08/20/17 06:41 Lactate Dehydrogenase 557 U/L (313-618) 08/15/17 20:10 Total Protein 4.3 g/dL (6.3-8.2) L 08/20/17 06:41 Albumin 2.2 g/dL (3.5-5.0) L 08/20/17 06:41 Urine Color Yellow 08/15/17 21:50 Urine Appearance Clear (Clear) 08/15/17 21:50 Urine pH 5.5 (5.0-8.0) 08/15/17 21:50 Ur Specific [place] 1.018 (1.001-1.035) 08/15/17 21:50 Urine Protein Trace (Negative) H 08/15/17 21:50 Urine Glucose (UA) Negative (Negative) 08/15/17 21:50 Urine Ketones Negative (Negative) 08/15/17 21:50 Urine Blood Negative (Negative) 08/15/17 21:50 Urine Nitrite Negative (Negative) 08/15/17 21:50 Urine Bilirubin Negative (Negative) 08/15/17 21:50 Urine Urobilinogen 2.0 mg/dL (<2.0) 08/15/17 21:50 Ur Leukocyte Esterase Negative (Negative) 08/15/17 21:50 Microbiology 08/15/17 20:10 Blood Blood Culture - Preliminary No Growth after 120 hours 08/18/17 16:26 Blood Blood Culture - Preliminary No Growth after 48 hours 08/16/17 12:29 Blood Blood Culture - Preliminary No Growth after 96 hours 08/16/17 12:44 Blood Blood Culture - Preliminary No Growth after 96 hours 08/15/17 21:50 Urine,Voided Urine Culture - Final Assessment and Plan (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 He was due for chemotherapy today but he developed increasing fever and was a bit ill and constantly was brought to the hospital. Antibiotics have been started, chemotherapy was held and he is being monitored. Fortunately his total bilirubin increased minimally and is now are the improving. His alkaline phosphatase as well as his AST and ALT are also improved. With this it is less likely that he has a partially obstructed biliary stent and then in the past he would just have rapidly increasing alk phos and total bilirubin. A mild infection related to his recent chemotherapy seems to be the most likely etiology. Antibiotic therapy is being utilized with piperacillin/tazobactam that was tolerated quite well in the past. All cultures are pending and negative so far. Blood work will be monitored and there is a potential that he would be treated with outpatient intravenous antibiotic therapy over the next week or so. He would then have this repeated scans from his oncologist and then be followed in the oncologist office for an overall plan. The patient did voices of the best he has felt in some time and relates it to not receiving chemotherapy. It is unclear at this time what his overall plan will be, his however would certainly like to have further chemotherapy given. 08/17/2017 patient still having fevers today. This is being discussed with the oncologist. Considering the possibility of addition of Neupogen giving his leukopenia and ongoing fevers. Cultures are negative and alk phos, AST, ALT and total bili are all normal. No other obvious source of infection at this time. Does not appear to have obstruction of the biliary tract at this time. Continue current antibiotic and monitor. Apparently will have a follow-up computed tomography scan in Wednesday and then determine next course of action. 08/18/2017 this situation discussed with oncology and they agree that a dose of Neupogen may be helpful given his relative immunocompromise and ongoing fever and relative leukopenia. This should be started and patient will be monitored. When his fever he feels somewhat poorly. There is no elevation of his bilirubin or alk phos and consequently ongoing or recurrent obstruction of his biliary tract seems to be very unlikely at this time. The fevers could be medication induced, ill give afrom the underlying progression of his cancer, or related to his relative neutropenia. A dose of Neupogen hopefully will resolve neutropenia and potentially his fevers. If he continues to have fever without any other significant focus of infection, we worry about effects of his chemotherapy and the tumor itself. He is due for follow-up computed tomography scan this coming Wednesday and follow-up with oncologist on Wednesday. 08/19/2017 patient had nupogen and developed fever which is now resolved and feeling better except for edema and some shortness of breath.WBC responded well and fevers resolved. No further doses needed. Will give a dose of lasix for edema. will work toward oral antibiotics for home soon. 08/20/2017 was without fever through the day but now again febrile and feeling poorly. Will repeat blood culture, reassess WBC, will alter to merrem given the pancreatic source potential and failure of the Zosyn. US shows mass but no biliary ductal dilatation. May need CT to further evaluate if fever does not improve. Leukopenia has resolved. Current Visit: No Status: Acute Code(s): K83.0 - CHOLANGITIS SNOMED Code(s ): 78413357 (4) Fever Current Visit: Yes Status: Acute Priority: High Code(s): R50.9 - FEVER, UNSPECIFIED SNOMED Code(s): 383168567
[2017-08-21] MEDS: SODIUM CHLORIDE 0.9% 1,000 ML IV SCH ×2 (01:18→05:53)
[2017-08-21] MEDS: MEROPENEM 1 GM in SODIUM CHLORIDE 0.9% 100 ML IVPB SCH ×3 (03:14→19:16)
[2017-08-21] MEDS: LEVOTHYROXINE 100 MCG TAB PO SCH (06:22)
[2017-08-21] MEDS: IBUPROFEN 600 MG TAB PO PRN ×2 (06:42→14:31)
[2017-08-21 07:53] LABS: Anisocytosis Moderate; Basophils # (A) 0.1 k/uL (0-0.2); Basophils % (A) 1 %; Eosinophils # (A) 0.2 k/uL (0-0.7); Eosinophils % (A) 2 %; HCT 27.2 % (39.0-53.0); HGB 8.3 gm/dL (13.0-17.5); Hypochromasia Moderate; Lymphocytes # (A) 0.5 k/uL (1.0-4.8); Lymphocytes % (A) 5 %; MCH 24.1 pg (25.0-35.0); MCHC 30.4 g/dL (31.0-37.0); MCV 79.4 fL (80.0-100.0); Microcytosis Slight; Monocytes # (A) 1.2 k/uL (0-1.0); Monocytes % (A) 11 %; Neutrophils # (A) 8.6 k/uL (1.3-7.7); Neutrophils % (A) 78 %; Platelet Count 403 k/uL (150-450); Poikilocytosis Slight; RBC 3.43 m/uL (4.30-5.90); RDW 21.1 % (11.5-15.5); WBC 10.9 k/uL (3.8-10.6)
[2017-08-21] MEDS: PANTOPRAZOLE 40 MG TABLET PO SCH (08:08)
[2017-08-21] MEDS: URSODIOL 300 MG CAP PO SCH ×2 (08:08→20:22)
[2017-08-21] MEDS: guaiFENesin 600 MG TABLET.ER PO SCH ×2 (08:08→20:22)
[2017-08-21] MEDS: FLUTICASONE 50MCG/SPRAY NASAL 16GM EA NOSTRIL SCH (08:08)
[2017-08-21] MEDS: DOCUSATE 100 MG CAP PO SCH ×2 (08:08→20:22)
[2017-08-21] MEDS: HEPARIN SODIUM,PORCINE 5,000 UNIT/ML 1 ML VIAL SQ SCH ×2 (08:08→20:23)
[2017-08-21 08:09] LABS: ALT 36 U/L (21-72); AST 33 U/L (17-59); Albumin 2.3 g/dL (3.5-5.0); Alkaline Phosphatase 119 U/L (38-126); Anion Gap 9 mmol/L; Blood Urea Nitrogen 11 mg/dL (9-20); Carbon Dioxide 24 mmol/L (22-30); Chloride 104 mmol/L (98-107); Glucose 80 mg/dL (74-99); Potassium 3.8 mmol/L (3.5-5.1); Sodium 137 mmol/L (137-145); Total Bilirubin 0.4 mg/dL (0.2-1.3); Total Protein 4.4 g/dL (6.3-8.2)
[2017-08-21] MEDS ORDERED: FUROSEMIDE 10 MG/ML 2 ML VIAL IV STA (14:58)
[2017-08-21] MEDS: LACTATED RINGERS 1,000 ML IV SCH (15:17)
--- NOTE | 2017-08-21 15:51 | P.PN ---
Subjective Progress Note Date: 08/21/17 This is a 66-year-old male who has a past medical history significant for pancreatic cancer currently on chemotherapy under the care of Dr. Dominguez diagnosed in February 2015. He is on Gemzar for 3 weeks and off 1 week. He had a recent hospitalization March 01 through March 04 with obstruction of the biliary tract. He was discharged home on Levaquin for 7 days. As antibiotic therapy completed he again became ill and febrile and presented back to the hospital. He can have evidence of sepsis and was placed on antibiotic therapy. He was having some improvement but then had a sudden increase of his total bilirubin and constantly was transferred to his hepatology Center at [facility] for evaluation of his pancreatic stent. This occurred and there was evidence of some blockage in the stent was recannulated and he's done well since. He is now back on a course of chemotherapy receiving 3 weeks on 1 week off. He's been having some alterations of his temperature and an ongoing basis thought to be due to the chemotherapy. He is feeling relatively poorly. He was due for further chemotherapy but spiked a high-grade fever over 103 and calcium was brought into the emergency center and admitted admitted. Antibiotic therapy was initiated based on his prior cultures and concerns to obstruction of the biliary tract from his stent that was recently manipulated and recannulated but not replaced. He is feeling the best he has in quite some time actually today. His fevers improved with the Motrin and his appetite improved and he relates that he's not receive chemo he is definitely feeling a bit better. Cultures are processing negative so far. The bilirubin peaked at 0.7 now at 0.4. The alk phos peaked at 149 now at 105. AST ALT are generally normal. 08/17/2017 reveals the patient to be doing somewhat better but is having some fevers up to 101.8. Pain control with anti-inflammatory. Patient generally is having some improvement does have some leukopenia. Denies other new symptoms. 08/18/2017 patient is feeling rather well but continues to have fever again having 101.8 fever this afternoon. When he has his fever he feels poorly but in between is feeling relatively well. Appetite is adequate. He is not having chills or rigors. Continues to have a normal bilirubin as well as a normal alk phos and AST, ALT. No positive cultures. 08/19/2017 patient with fever after Nupogen injection last evening , now resolved but is with fluid retention. 08/20/2017 patient was having a good day until this PM then developed fever and now feels poorly. Weak and tired but no new symptoms still dry cough at times. 08/21/2017 patient this afternoon is now developed a fever again. The is concerned. She is crying readily and that she is worried about her 's overall status. With some rehydration he again has developed significant edema , fluid or put on hold. The patient relates that the edema he just feels poorly but feels very poorly every time he has a fever. Other than some ongoing shortness of breath he denies acute changes. Objective - Vital Signs Vital signs: Vital Signs Temp 98.9 F 08/21/17 05:00 Pulse 83 08/21/17 05:00 Resp 16 08/21/17 05:00 BP 167/83 08/21/17 05:00 Pulse Ox 94 L 08/21/17 08:35 Intake & Output 08/20/17 08/21/17 08/21/17 18:59 06:59 18:59 Intake Total 50 990 160 Balance 50 990 160 Weight 86.183 kg Intake: Intake, IV Titration 50 400 160 Amount Lactated Ringers 1,000 ml 400 60 @ 50 mls/hr IV .Q20H [facility] Rx#:[id number] Meropenem 1 gm In Sodium 100 Chloride 0.9% 100 ml @ 100 mls/hr IVPB Q8H [facility] Rx#:[id number] Piperacillin-Tazobactam 3 50 .375 gm In Dextrose/Water 1 50ml.bag @ 12.5 mls/hr IVPB Q8HR [facility] Rx#: [id number] Oral 590 Other: Voiding Method Toilet Toilet # Voids 2 - Exam Pleasant 67-year-old male feeling poorly at this time HEENT: Anicteric conjunctiva are pink and moist nasal mucosa grossly intact without significant lesions, there is no thrush. Neck: The neck is supple without significant lymphadenopathy or thyromegaly. Lungs: Good bilateral air entry without significant wheezing, few crackles persist at the left base. There is no significant bronchial sounds. There is no egophony or dullness. Heart: Regular rate and rhythm with an audible S1-S2, no S3 no S4. There is no significant murmur click or rub, PMI was nondisplaced. Abdomen: Positive bowel sounds soft and nontender without palpable masses or organomegaly. There was no guarding or rebound. Extremities: The upper extremities have excellent pulses they are symmetric, no significant petechiae or telangiectasia. No splinter hemorrhages were noted. The lower extremities have developed some recurrent edema. The peripheral pulses were 2+ and symmetric. Neuro: Awake alert oriented to person place and time. There are no acute new gross focal sensory motor deficits. - Labs CBC & Chem 7: 08/21/17 07:29 08/21/17 07:29 Labs: Abnormal Lab Results - Last 24 Hours (Table) 08/20/17 08/21/17 08/21/17 Range/Units 19:39 07:29 07:29 WBC 12.8 H 10.9 H (3.8-10.6) k/uL RBC 3.34 L 3.43 L (4.30-5.90) m/uL Hgb 8.3 L 8.3 L (13.0-17.5) gm/dL Hct 27.3 L 27.2 L (39.0-53.0) % MCV 79.4 L (80.0-100.0) fL MCH 24.7 L 24.1 L (25.0-35.0) pg MCHC 30.2 L 30.4 L (31.0-37.0) g/dL RDW 21.4 H 21.1 H (11.5-15.5) % Neutrophils # 10.3 H 8.6 H (1.3-7.7) k/uL Lymphocytes # 0.6 L 0.5 L (1.0-4.8) k/uL Monocytes # 1.2 H 1.2 H (0-1.0) k/uL Creatinine 0.56 L (0.66-1.25) mg/dL Calcium 8.0 L (8.4-10.2) mg/dL Total Protein 4.4 L (6.3-8.2) g/dL Albumin 2.3 L (3.5-5.0) g/dL Microbiology - Last 24 Hours (Table) 08/16/17 12:29 Blood Culture - Preliminary Blood No Growth after 120 hours 08/16/17 12:44 Blood Culture - Preliminary Blood No Growth after 120 hours 08/15/17 20:10 Blood Culture - Preliminary Blood No Growth after 120 hours 08/18/17 16:26 Blood Culture - Preliminary Blood No Growth after 48 hours Laboratory Results WBC 10.9 k/uL (3.8-10.6) H 08/21/17 07:29 RBC 3.43 m/uL (4.30-5.90) L 08/21/17 07:29 Hgb 8.3 gm/dL (13.0-17.5) L 08/21/17 07:29 Hct 27.2 % (39.0-53.0) L 08/21/17 07:29 MCV 79.4 fL (80.0-100.0) L 08/21/17 07: MCH 24.1 pg (25.0-35.0) L 08/21/17 07:29 MCHC 30.4 g/dL (31.0-37.0) L 08/21/17 07:29 RDW 21.1 % (11.5-15.5) H 08/21/17 07:29 Plt Count 403 k/uL (150-450) 08/21/17 07:29 Neutrophils % 78 % 08/21/17 07:29 Neutrophils % (Manual) 65 % 08/18/17 12:40 Band Neutrophils % 1 % 08/18/17 12:40 Lymphocytes % 5 % 08/21/17 07:29 Lymphocytes % (Manual) 8 % 08/18/17 12:40 Monocytes % 11 % 08/21/17 07:29 Monocytes % (Manual) 22 % 08/18/17 12:40 Eosinophils % 2 % 08/21/17 07:29 Eosinophils % (Manual) 4 % 08/18/17 12:40 Basophils % 1 % 08/21/17 07:29 Neutrophils # 8.6 k/uL (1.3-7.7) H 08/21/17 07:29 Neutrophils # (Manual) 2.40 k/uL (1.3-7.7) 08/18/17 12:40 Lymphocytes # 0.5 k/uL (1.0-4.8) L 08/21/17 07:29 Lymphocytes # (Manual) 0.30 k/uL (1.0-4.8) L 08/18/17 12:40 Monocytes # 1.2 k/uL (0-1.0) H 08/21/17 07:29 Monocytes # (Manual) 0.81 k/uL (0-1.0) 08/18/17 12:40 Eosinophils # 0.2 k/uL (0-0.7) 08/21/17 07:29 Eosinophils # (Manual) 0.15 k/uL (0-0.7) 08/18/17 12:40 Basophils # 0.1 k/uL (0-0.2) 08/21/17 07:29 Nucleated RBCs 0 /100 WBC (0-0) 08/18/17 12:40 Manual Slide Review Performed 08/18/17 12:40 Dimorphic RBCs Present 08/17/17 07:27 Polychromasia Present 08/18/17 12:40 Hypochromasia Moderate 08/21/17 07:29 Poikilocytosis Slight 08/21/17 07:29 Poikilocytosis (manual Present 08/18/17 12:40 Anisocytosis Moderate 08/21/17 07:29 Microcytosis Slight 08/21/17 07:29 Ovalocytes Present 08/17/17 07:27 Fragmented RBCs Present 08/17/17 07:27 Haptoglobin 296.0 mg/dL (31.2-198.0) H 08/15/17 20:10 Sodium 137 mmol/L (137-145) 08/21/17 07:29 Potassium 3.8 mmol/L (3.5-5.1) 08/21/17 07:29 Chloride 104 mmol/L (98-107) 08/21/17 07:29 Carbon Dioxide 24 mmol/L (22-30) 08/21/17 07:29 Anion Gap 9 mmol/L 08/21/17 07:29 BUN 11 mg/dL (9-20) 08/21/17 07:29 Creatinine 0.56 mg/dL (0.66-1.25) L 08/21/17 07:29 Est GFR (CKD-EPI)AfAm >90 (>60 ml/min/1.73 sqM) 08/21/17 07:29 Est GFR (CKD-EPI)NonAf >90 (>60 ml/min/1.73 sqM) 08/21/17 07:29 Glucose 80 mg/dL (74-99) 08/21/17 07:29 Lactic Ac Sepsis Rflx Y 08/15/17 20:47 Plasma Lactic Acid Paddy 1.3 mmol/L (0.7-2.0) 08/16/17 02:10 Calcium 8.0 mg/dL (8.4-10.2) L 08/21/17 07:29 Total Bilirubin 0.4 mg/dL (0.2-1.3) 08/21/17 07:29 AST 33 U/L (17-59) 08/21/17 07:29 ALT 36 U/L (21-72) 08/21/17 07:29 Alkaline Phosphatase 119 U/L (38-126) 08/21/17 07:29 Lactate Dehydrogenase 557 U/L (313-618) 08/15/17 20:10 Total Protein 4.4 g/dL (6.3-8.2) L 08/21/17 07:29 Albumin 2.3 g/dL (3.5-5.0) L 08/21/17 07:29 Urine Color Yellow 08/15/17 21:50 Urine Appearance Clear (Clear) 08/15/17 21:50 Urine pH 5.5 (5.0-8.0) 08/15/17 21:50 Ur Specific [place] 1.018 (1.001-1.035) 08/15/17 21:50 Urine Protein Trace (Negative) H 08/15/17 21:50 Urine Glucose (UA) Negative (Negative) 08/15/17 21:50 Urine Ketones Negative (Negative) 08/15/17 21:50 Urine Blood Negative (Negative) 08/15/17 21:50 Urine Nitrite Negative (Negative) 08/15/17 21:50 Urine Bilirubin Negative (Negative) 08/15/17 21:50 Urine Urobilinogen 2.0 mg/dL (<2.0) 08/15/17 21:50 Ur Leukocyte Esterase Negative (Negative) 08/15/17 21:50 Microbiology 08/16/17 12:29 Blood Blood Culture - Preliminary No Growth after 120 hours 08/16/17 12:44 Blood Blood Culture - Preliminary No Growth after 120 hours 08/15/17 20:10 Blood Blood Culture - Preliminary No Growth after 120 hours 08/18/17 16:26 Blood Blood Culture - Preliminary No Growth after 48 hours 08/15/17 21:50 Urine,Voided Urine Culture - Final Assessment and Plan (1) Anahy-ampullary carcinoma Current Visit: No Status: Acute Code(s): C24.8 - MALIGNANT NEOPLASM OF OVERLAPPING SITES OF BILIARY TRACT SNOMED Code(s): 637847067 (2) Pancreatic mass Current Visit: No Status: Acute Priority: High Code(s): K86.9 - DISEASE OF PANCREAS, UNSPECIFIED SNOMED Code(s): 188319130 (3) Cholangitis, recurrent Narrative/Plan: 67-year-old male that has a history of the periampullary pancreatic cancer who's been followed closely at [facility] and has been receiving chemotherapy, currently 3 weeks on 1 week off. He was due for chemotherapy today but he developed increasing fever and was a bit ill and constantly was brought to the hospital. Antibiotics have been started, chemotherapy was held and he is being monitored. Fortunately his total bilirubin increased minimally and is now are the improving. His alkaline phosphatase as well as his AST and ALT are also improved. With this it is less likely that he has a partially obstructed biliary stent and then in the past he would just have rapidly increasing alk phos and total bilirubin. A mild infection related to his recent chemotherapy seems to be the most likely etiology. Antibiotic therapy is being utilized with piperacillin/tazobactam that was tolerated quite well in the past. All cultures are pending and negative so far. Blood work will be monitored and there is a potential that he would be treated with outpatient intravenous antibiotic therapy over the next week or so. He would then have this repeated scans from his oncologist and then be followed in the oncologist office for an overall plan. The patient did voices of the best he has felt in some time and relates it to not receiving chemotherapy. It is unclear at this time what his overall plan will be, his however would certainly like to have further chemotherapy given. 08/17/2017 patient still having fevers today. This is being discussed with the oncologist. Considering the possibility of addition of Neupogen giving his leukopenia and ongoing fevers. Cultures are negative and alk phos, AST, ALT and total bili are all normal. No other obvious source of infection at this time. Does not appear to have obstruction of the biliary tract at this time. Continue current antibiotic and monitor. Apparently will have a follow-up computed tomography scan in Wednesday and then determine next course of action. 08/18/2017 this situation discussed with oncology and they agree that a dose of Neupogen may be helpful given his relative immunocompromise and ongoing fever and relative leukopenia. This should be started and patient will be monitored. When his fever he feels somewhat poorly. There is no elevation of his bilirubin or alk phos and consequently ongoing or recurrent obstruction of his biliary tract seems to be very unlikely at this time. The fevers could be medication induced, ill give afrom the underlying progression of his cancer, or related to his relative neutropenia. A dose of Neupogen hopefully will resolve neutropenia and potentially his fevers. If he continues to have fever without any other significant focus of infection, we worry about effects of his chemotherapy and the tumor itself. He is due for follow-up computed tomography scan this coming Wednesday and follow-up with oncologist on Wednesday. 08/19/2017 patient had nupogen and developed fever which is now resolved and feeling better except for edema and some shortness of breath.WBC responded well and fevers resolved. No further doses needed. Will give a dose of lasix for edema. will work toward oral antibiotics for home soon. 08/20/2017 was without fever through the day but now again febrile and feeling poorly. Will repeat blood culture, reassess WBC, will alter to merrem given the pancreatic source potential and failure of the Zosyn. US shows mass but no biliary ductal dilatation. May need CT to further evaluate if fever does not improve. Leukopenia has resolved. 08/21/2017 patient is developing some fever again. He was given some fluids and again has become quite edematous. Fluids and hold the dose of Lasix this is given. Antibiotic therapy was altered to Merrem with concerns to Zosyn failure and the ongoing pancreatic source. If he continues to have ongoing fevers a follow-up computed tomography scan should be performed to ensure there are no other acute changes. Follow blood cultures have been requested. Patient otherwise had been consoled. Current Visit: No Status: Acute Code(s): K83.0 - CHOLANGITIS SNOMED Code(s ): 25932356 (4) Fever Current Visit: Yes Status: Acute Priority: High Code(s): R50.9 - FEVER, UNSPECIFIED SNOMED Code(s): 413753338
--- NOTE | 2017-08-21 17:29 | P.PN ---
Subjective Progress Note Date: 08/21/17 Principal diagnosis: Pancreatic cancer/ cholangitis/ sepsis This this is a pleasant 67 years old male with past medical history of pancreatic cancer diagnosed in February 2059, testicular cancer, hypothyroidism. Patient is status post ERCP and he had weakness in his biliary tract. Patient is currently on chemotherapy. He presents last night because of fever 103.0. Patient was admitted twice with similar problem. In the last few months. At that time suspected to have sepsis secondary to biliary infection and was treated with antibiotics. Patient denies abdominal pain. No change in bowel habits. No urinary complaints. No nausea or vomiting. No chest pain or dyspnea. No headache or focal neurological complaints has no weakness. No back pain. No abnormal sensation. No pleural effusions or difficulty swallowing. Patient has Port-A-Cath in the left upper chest and he got chemotherapy last week Patient was admitted for IV antibiotic treatment; his pancytopenia remained stable; blood cultures are negative so far Hematology started patient on Neupogen; patient did have episode of low-grade temperature around 100; repeat chest x-ray shows elevated left hemidiaphragm and possible effusion versus infiltrate in left lung; patient is for CT of the chest on Wednesday08/21/2017; patient continues to have spikes of low-grade temperature; complain of significant generalized edema; patient has been evaluated again by ID; IV antibiotic therapy has been escalated from Zosyn to IV Merrem; patient received 1 dose of IV Lasix and has been diuresing well since then; claims chest congestion feels somewhat better; ID recommending possible computed tomography scan of the abdomen if patient continues to spike fevers a change in antibiotics ; all of the above was discussed with patient and family and they are agreeable Objective - Vital Signs Vital signs: Vital Signs Temp 98.9 F 08/21/17 05:00 Pulse 83 08/21/17 05:00 Resp 16 08/21/17 05:00 BP 167/83 08/21/17 05:00 Pulse Ox 94 L 08/21/17 08:35 Intake & Output 08/20/17 08/21/17 08/21/17 18:59 06:59 18:59 Intake Total 50 990 160 Balance 50 990 160 Weight 86.183 kg Intake: Intake, IV Titration 50 400 160 Amount Lactated Ringers 1,000 ml 400 60 @ 50 mls/hr IV .Q20H [facility] Rx#:[id number] Meropenem 1 gm In Sodium 100 Chloride 0.9% 100 ml @ 100 mls/hr IVPB Q8H [facility] Rx#:[id number] Piperacillin-Tazobactam 3 50 .375 gm In Dextrose/Water 1 50ml.bag @ 12.5 mls/hr IVPB Q8HR [facility] Rx#: [id number] Oral 590 Other: Voiding Method Toilet Toilet # Voids 2 - Exam - Constitutional General appearance: Present: average body habitus, cooperative, no acute distress - EENT Eyes: Present: anicteric sclerae, EOMI, PERRLA, normal appearance ENT: Present: hearing grossly normal, normal oropharynx Ears: bilateral: normal - Neck Neck: Present: normal ROM. Absent: lymphadenopathy, rigidity, thyromegaly Carotids: negative: bruit present Thyroid: bilateral: normal size, negative: enlarged, nodule - Respiratory Respiratory: bilateral: CTA, negative: rales, rhonchi, wheezing - Cardiovascular Rhythm: regular Heart sounds: normal: S1, S2 Abnormal Heart Sounds: Absent: systolic murmur, diastolic murmur - Gastrointestinal General gastrointestinal: Present: normal bowel sounds, soft. Absent: distended , organomegaly, tenderness - Genitourinary Genitourinary Comment(s): deferred - Integumentary Integumentary: Present: normal turgor. Absent: jaundiced, rash, ulcer - Neurologic Neurologic: Present: CNII-XII intact. Absent: focal deficits - Musculoskeletal Musculoskeletal: Present: gait normal, strength equal bilaterally - Psychiatric Psychiatric: Present: A&O x's 3, appropriate affect, intact judgment & insight - Labs CBC & Chem 7: 08/21/17 07:29 08/21/17 07:29 Labs: Abnormal Lab Results - Last 24 Hours (Table) 08/20/17 08/21/17 08/21/17 Range/Units 19:39 07:29 07:29 WBC 12.8 H 10.9 H (3.8-10.6) k/uL RBC 3.34 L 3.43 L (4.30-5.90) m/uL Hgb 8.3 L 8.3 L (13.0-17.5) gm/dL Hct 27.3 L 27.2 L (39.0-53.0) % MCV 79.4 L (80.0-100.0) fL MCH 24.7 L 24.1 L (25.0-35.0) pg MCHC 30.2 L 30.4 L (31.0-37.0) g/dL RDW 21.4 H 21.1 H (11.5-15.5) % Neutrophils # 10.3 H 8.6 H (1.3-7.7) k/uL Lymphocytes # 0.6 L 0.5 L (1.0-4.8) k/uL Monocytes # 1.2 H 1.2 H (0-1.0) k/uL Creatinine 0.56 L (0.66-1.25) mg/dL Calcium 8.0 L (8.4-10.2) mg/dL Total Protein 4.4 L (6.3-8.2) g/dL Albumin 2.3 L (3.5-5.0) g/dL Microbiology - Last 24 Hours (Table) 08/16/17 12:29 Blood Culture - Preliminary Blood No Growth after 120 hours 08/16/17 12:44 Blood Culture - Preliminary Blood No Growth after 120 hours 08/15/17 20:10 Blood Culture - Preliminary Blood No Growth after 120 hours 08/18/17 16:26 Blood Culture - Preliminary Blood No Growth after 48 hours Assessment and Plan Assessment: 1. Possible cholangitis/sepsis. 2. Pancreatic cancer, on chemotherapy. 3. Status post 3 stents in the biliary system, history of ERCP 4. Pancytopenia, history of recent chemotherapy 1 week prior to admission Plan: Patient presents with fever of one-day duration, similar to problems about 2 months ago. Continue with the same and treatment. Continue with symptomatic treatment. Temperature could be controlled with ibuprofen. Patient to continue on Zosyn. Infectious disease, heme oncology and GI input is appreciated. Continue with IV fluids and antibiotics. UA was unremarkable for infection. Patient continued to spike fever, repeat chest x-ray: Possible left lower infiltrate Patient has no diarrhea. Port-A-Cath in place in the left upper chest. Patient has a worsening dry cough, continue symptomatic treatment. ID team following the patient Continue with DVT and GI prophylaxis. Further recommendation based on the clinical course. Prognosis is guarded. CODE STATUS discussed with the patient and he confirms to me he is DO NOT RESUSCITATE/DO NOT RESUSCITATE Time with Patient: Greater than 30
[2017-08-21] MEDS: ACETAMINOPHEN TAB 325 MG TAB PO PRN (22:30)
[2017-08-22] MEDS: MEROPENEM 1 GM in SODIUM CHLORIDE 0.9% 100 ML IVPB SCH ×3 (03:24→21:58)
[2017-08-22] MEDS: LEVOTHYROXINE 100 MCG TAB PO SCH (06:11)
[2017-08-22] MEDS: ACETAMINOPHEN TAB 325 MG TAB PO PRN ×2 (06:15→11:32)
[2017-08-22] MEDS: DOCUSATE 100 MG CAP PO SCH ×2 (07:44→21:59)
[2017-08-22] MEDS: FLUTICASONE 50MCG/SPRAY NASAL 16GM EA NOSTRIL SCH (07:44)
[2017-08-22] MEDS: PANTOPRAZOLE 40 MG TABLET PO SCH (07:44)
[2017-08-22] MEDS: guaiFENesin 600 MG TABLET.ER PO SCH ×2 (07:45→21:59)
[2017-08-22] MEDS: URSODIOL 300 MG CAP PO SCH ×2 (07:45→21:59)
[2017-08-22] MEDS: HEPARIN SODIUM,PORCINE 5,000 UNIT/ML 1 ML VIAL SQ SCH ×2 (07:47→21:59)
[2017-08-22 08:10] LABS: ALT 36 U/L (21-72); AST 31 U/L (17-59); Albumin 2.3 g/dL (3.5-5.0); Alkaline Phosphatase 115 U/L (38-126); Anion Gap 7 mmol/L; Blood Urea Nitrogen 10 mg/dL (9-20); Calcium 8.1 mg/dL (8.4-10.2); Carbon Dioxide 26 mmol/L (22-30); Chloride 103 mmol/L (98-107); Glucose 85 mg/dL (74-99); Potassium 3.7 mmol/L (3.5-5.1); Sodium 136 mmol/L (137-145); Total Bilirubin 0.3 mg/dL (0.2-1.3); Total Protein 4.4 g/dL (6.3-8.2)
[2017-08-22] MEDS: LACTATED RINGERS 1,000 ML IV SCH (08:49)
[2017-08-22 09:33] LABS: Anisocytosis Moderate; HCT 27.5 % (39.0-53.0); HGB 8.3 gm/dL (13.0-17.5); Hypochromasia Moderate; MCH 24.4 pg (25.0-35.0); MCHC 30.4 g/dL (31.0-37.0); MCV 80.3 fL (80.0-100.0); Mean Platelet Volume 6.7; Microcytosis Slight; Platelet Count 483 k/uL (150-450); Poikilocytosis Slight; RBC 3.42 m/uL (4.30-5.90); RDW 21.2 % (11.5-15.5); WBC 8.5 k/uL (3.8-10.6)
[2017-08-22 10:43] LABS: Band Neutrophils % 1 %; Eosinophils # (M) 0.17 k/uL (0-0.7); Lymphocytes # (M) 0.68 k/uL (1.0-4.8); Metamyelocytes # (M) 0.26 k/uL (0); Metamyelocytes % 3 %; Monocytes # (M) 1.96 k/uL (0-1.0); Myelocytes # (M) 0.26 k/uL (0); Myelocytes % 3 %; Neutrophils % (M) 62 %; Nucleated Red Blood Cells 0 /100 WBC (0-0); Total Cells Counted 200
[2017-08-22] MEDS: IBUPROFEN 600 MG TAB PO PRN (14:50)
[2017-08-22] MEDS ORDERED: FUROSEMIDE 10 MG/ML 2 ML VIAL IV ONE (15:03)
--- NOTE | 2017-08-22 15:03 | P.PN ---
Subjective Progress Note Date: 08/22/17 This is a 66-year-old male who has a past medical history significant for pancreatic cancer currently on chemotherapy under the care of Dr. Dominguez diagnosed in February 2015. He is on Gemzar for 3 weeks and off 1 week. He had a recent hospitalization March 01 through March 04 with obstruction of the biliary tract. He was discharged home on Levaquin for 7 days. As antibiotic therapy completed he again became ill and febrile and presented back to the hospital. He can have evidence of sepsis and was placed on antibiotic therapy. He was having some improvement but then had a sudden increase of his total bilirubin and constantly was transferred to his hepatology Center at [facility] for evaluation of his pancreatic stent. This occurred and there was evidence of some blockage in the stent was recannulated and he's done well since. He is now back on a course of chemotherapy receiving 3 weeks on 1 week off. He's been having some alterations of his temperature and an ongoing basis thought to be due to the chemotherapy. He is feeling relatively poorly. He was due for further chemotherapy but spiked a high-grade fever over 103 and calcium was brought into the emergency center and admitted admitted. Antibiotic therapy was initiated based on his prior cultures and concerns to obstruction of the biliary tract from his stent that was recently manipulated and recannulated but not replaced. He is feeling the best he has in quite some time actually today. His fevers improved with the Motrin and his appetite improved and he relates that he's not receive chemo he is definitely feeling a bit better. Cultures are processing negative so far. The bilirubin peaked at 0.7 now at 0.4. The alk phos peaked at 149 now at 105. AST ALT are generally normal. 08/17/2017 reveals the patient to be doing somewhat better but is having some fevers up to 101.8. Pain control with anti-inflammatory. Patient generally is having some improvement does have some leukopenia. Denies other new symptoms. 08/18/2017 patient is feeling rather well but continues to have fever again having 101.8 fever this afternoon. When he has his fever he feels poorly but in between is feeling relatively well. Appetite is adequate. He is not having chills or rigors. Continues to have a normal bilirubin as well as a normal alk phos and AST, ALT. No positive cultures. 08/19/2017 patient with fever after Nupogen injection last evening , now resolved but is with fluid retention. 08/20/2017 patient was having a good day until this PM then developed fever and now feels poorly. Weak and tired but no new symptoms still dry cough at times. 08/21/2017 patient this afternoon is now developed a fever again. The is concerned. She is crying readily and that she is worried about her 's overall status. With some rehydration he again has developed significant edema , fluid or put on hold. The patient relates that the edema he just feels poorly but feels very poorly every time he has a fever. Other than some ongoing shortness of breath he denies acute changes. 08/22/2017 reveals the patient feeling just slightly better today. He is still feeling weak but was able to get up and walk twice in the hallways. This is an improvement from yesterday. His extensive edema has improved but is not yet resolved. Objective - Vital Signs Vital signs: Vital Signs Temp 99.3 F 08/22/17 12:45 Pulse 79 08/22/17 08:19 Resp 16 08/22/17 08:44 BP 140/85 08/22/17 08:19 Pulse Ox 93 L 08/22/17 08:19 Intake & Output 08/21/17 08/22/17 08/22/17 18:59 06:59 18:59 Intake Total 160 740 500 Balance 160 740 500 Intake: Intake, IV Titration 160 200 100 Amount Lactated Ringers 1,000 ml 60 @ 50 mls/hr IV .Q20H MAGDY Rx#:[id number] Meropenem 1 gm In Sodium 100 200 100 Chloride 0.9% 100 ml @ 100 mls/hr IVPB Q8H MAGDY Rx#:[id number] Oral 540 400 Other: Voiding Method Toilet Toilet # Voids 1 2 - Exam Pleasant 67-year-old male feeling poorly at this time HEENT: Anicteric conjunctiva are pink and moist nasal mucosa grossly intact without significant lesions, there is no thrush. Neck: The neck is supple without significant lymphadenopathy or thyromegaly. Lungs: Good bilateral air entry without significant wheezing, few crackles persist at the left base. There is no significant bronchial sounds. There is no egophony or dullness. Heart: Regular rate and rhythm with an audible S1-S2, no S3 no S4. There is no significant murmur click or rub, PMI was nondisplaced. Abdomen: Positive bowel sounds soft and nontender without palpable masses or organomegaly. There was no guarding or rebound. Extremities: The upper extremities have excellent pulses they are symmetric, no significant petechiae or telangiectasia. No splinter hemorrhages were noted. The lower extremities have developed some recurrent edema. The peripheral pulses were 2+ and symmetric. Neuro: Awake alert oriented to person place and time. There are no acute new gross focal sensory motor deficits. - Labs CBC & Chem 7: 08/22/17 07:31 08/22/17 07:31 Labs: Abnormal Lab Results - Last 24 Hours (Table) 08/22/17 08/22/17 Range/Units 07: 07:31 RBC 3.42 L (4.30-5.90) m/uL Hgb 8.3 L (13.0-17.5) gm/dL Hct 27.5 L (39.0-53.0) % MCH 24.4 L (25.0-35.0) pg MCHC 30.4 L (31.0-37.0) g/dL RDW 21.2 H (11.5-15.5) % Plt Count 483 H (150-450) k/uL Lymphocytes # (Manual) 0.68 L (1.0-4.8) k/uL Monocytes # (Manual) 1.96 H (0-1.0) k/uL Metamyelocytes # (Man) 0.26 H (0) k/uL Myelocytes # (Manual) 0.26 H (0) k/uL Sodium 136 L (137-145) mmol/L Creatinine 0.57 L (0.66-1.25) mg/dL Calcium 8.1 L (8.4-10.2) mg/dL Total Protein 4.4 L (6.3-8.2) g/dL Albumin 2.3 L (3.5-5.0) g/dL Microbiology - Last 24 Hours (Table) 08/16/17 12:29 Blood Culture - Final Blood No Growth after 144 hours 08/16/17 12:44 Blood Culture - Final Blood No Growth after 144 hours 08/15/17 20:10 Blood Culture - Final Blood No Growth after 144 hours 08/20/17 19:39 Blood Culture - Preliminary Blood No Growth after 24 hours 08/18/17 16:26 Blood Culture - Preliminary Blood No Growth after 72 hours Laboratory Results WBC 8.5 k/uL (3.8-10.6) 08/22/17 07:31 RBC 3.42 m/uL (4.30-5.90) L 08/22/17 07:31 Hgb 8.3 gm/dL (13.0-17.5) L 08/22/17 07:31 Hct 27.5 % (39.0-53.0) L 08/22/17 07:31 MCV 80.3 fL (80.0-100.0) 08/22/17 07:31 MCH 24.4 pg (25.0-35.0) L 08/22/17 07:31 MCHC 30.4 g/dL (31.0-37.0) L 08/22/17 07:31 RDW 21.2 % (11.5-15.5) H 08/22/17 07:31 Plt Count 483 k/uL (150-450) H 08/22/17 07:31 Neutrophils % 78 % 08/21/17 07:29 Neutrophils % (Manual) 62 % 08/22/17 07:31 Band Neutrophils % 1 % 08/22/17 07:31 Lymphocytes % 5 % 08/21/17 07:29 Lymphocytes % (Manual) 8 % 08/22/17 07:31 Monocytes % 11 % 08/21/17 07:29 Monocytes % (Manual) 23 % 08/22/17 07:31 Eosinophils % 2 % 08/21/17 07:29 Eosinophils % (Manual) 2 % 08/22/17 07:31 Basophils % 1 % 08/21/17 07:29 Metamyelocytes % 3 % 08/22/17 07:31 Myelocytes % 3 % 08/22/17 07:31 Neutrophils # 8.6 k/uL (1.3-7.7) H 08/21/17 07:29 Neutrophils # (Manual) 5.30 k/uL (1.3-7.7) 08/22/17 07:31 Lymphocytes # 0.5 k/uL (1.0-4.8) L 08/21/17 07:29 Lymphocytes # (Manual) 0.68 k/uL (1.0-4.8) L 08/22/17 07:31 Monocytes # 1.2 k/uL (0-1.0) H 08/21/17 07:29 Monocytes # (Manual) 1.96 k/uL (0-1.0) H 08/22/17 07:31 Eosinophils # 0.2 k/uL (0-0.7) 08/21/17 07:29 Eosinophils # (Manual) 0.17 k/uL (0-0.7) 08/22/17 07:31 Basophils # 0.1 k/uL (0-0.2) 08/21/17 07:29 Metamyelocytes # (Man) 0.26 k/uL (0) H 08/22/17 07:31 Myelocytes # (Manual) 0.26 k/uL (0) H 08/22/17 07:31 Nucleated RBCs 0 /100 WBC (0-0) 08/22/17 07:31 Manual Slide Review Performed 08/22/17 07:31 Dimorphic RBCs Present 08/17/17 07:27 Polychromasia Present 08/18/17 12:40 Hypochromasia Moderate 08/22/17 07:31 Poikilocytosis Slight 08/22/17 07:31 Poikilocytosis (manual Present 08/18/17 12:40 Anisocytosis Moderate 08/22/17 07:31 Microcytosis Slight 08/22/17 07:31 Ovalocytes Present 08/17/17 07:27 Fragmented RBCs Present 08/17/17 07:27 Haptoglobin 296.0 mg/dL (31.2-198.0) H 08/15/17 20:10 Sodium 136 mmol/L (137-145) L 08/22/17 07:31 Potassium 3.7 mmol/L (3.5-5.1) 08/22/17 07:31 Chloride 103 mmol/L (98-107) 08/22/17 07:31 Carbon Dioxide 26 mmol/L (22-30) 08/22/17 07:31 Anion Gap 7 mmol/L 08/22/17 07:31 BUN 10 mg/dL (9-20) 08/22/17 07:31 Creatinine 0.57 mg/dL (0.66-1.25) L 08/22/17 07:31 Est GFR (CKD-EPI)AfAm >90 (>60 ml/min/1.73 sqM) 08/22/17 07:31 Est GFR (CKD-EPI)NonAf >90 (>60 ml/min/1.73 sqM) 08/22/17 07:31 Glucose 85 mg/dL (74-99) 08/22/17 07:31 Lactic Ac Sepsis Rflx Y 08/15/17 20:47 Plasma Lactic Acid Paddy 1.3 mmol/L (0.7-2.0) 08/16/17 02:10 Calcium 8.1 mg/dL (8.4-10.2) L 08/22/17 07:31 Total Bilirubin 0.3 mg/dL (0.2-1.3) 08/22/17 07:31 AST 31 U/L (17-59) 08/22/17 07:31 ALT 36 U/L (21-72) 08/22/17 07:31 Alkaline Phosphatase 115 U/L (38-126) 08/22/17 07:31 Lactate Dehydrogenase 557 U/L (313-618) 08/15/17 20:10 Total Protein 4.4 g/dL (6.3-8.2) L 08/22/17 07:31 Albumin 2.3 g/dL (3.5-5.0) L 08/22/17 07:31 Urine Color Yellow 08/15/17 21:50 Urine Appearance Clear (Clear) 08/15/17 21:50 Urine pH 5.5 (5.0-8.0) 08/15/17 21:50 Ur Specific [place] 1.018 (1.001-1.035) 08/15/17 21:50 Urine Protein Trace (Negative) H 08/15/17 21:50 Urine Glucose (UA) Negative (Negative) 08/15/17 21:50 Urine Ketones Negative (Negative) 08/15/17 21:50 Urine Blood Negative (Negative) 08/15/17 21:50 Urine Nitrite Negative (Negative) 08/15/17 21:50 Urine Bilirubin Negative (Negative) 08/15/17 21:50 Urine Urobilinogen 2.0 mg/dL (<2.0) 08/15/17 21:50 Ur Leukocyte Esterase Negative (Negative) 08/15/17 21:50 Microbiology 08/16/17 12:29 Blood Blood Culture - Final No Growth after 144 hours 08/16/17 12:44 Blood Blood Culture - Final No Growth after 144 hours 08/15/17 20:10 Blood Blood Culture - Final No Growth after 144 hours 08/20/17 19:39 Blood Blood Culture - Preliminary No Growth after 24 hours 08/18/17 16:26 Blood Blood Culture - Preliminary No Growth after 72 hours 08/15/17 21:50 Urine,Voided Urine Culture - Final Assessment and Plan (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 He was due for chemotherapy today but he developed increasing fever and was a bit ill and constantly was brought to the hospital. Antibiotics have been started, chemotherapy was held and he is being monitored. Fortunately his total bilirubin increased minimally and is now are the improving. His alkaline phosphatase as well as his AST and ALT are also improved. With this it is less likely that he has a partially obstructed biliary stent and then in the past he would just have rapidly increasing alk phos and total bilirubin. A mild infection related to his recent chemotherapy seems to be the most likely etiology. Antibiotic therapy is being utilized with piperacillin/tazobactam that was tolerated quite well in the past. All cultures are pending and negative so far. Blood work will be monitored and there is a potential that he would be treated with outpatient intravenous antibiotic therapy over the next week or so. He would then have this repeated scans from his oncologist and then be followed in the oncologist office for an overall plan. The patient did voices of the best he has felt in some time and relates it to not receiving chemotherapy. It is unclear at this time what his overall plan will be, his however would certainly like to have further chemotherapy given. 08/17/2017 patient still having fevers today. This is being discussed with the oncologist. Considering the possibility of addition of Neupogen giving his leukopenia and ongoing fevers. Cultures are negative and alk phos, AST, ALT and total bili are all normal. No other obvious source of infection at this time. Does not appear to have obstruction of the biliary tract at this time. Continue current antibiotic and monitor. Apparently will have a follow-up computed tomography scan in Wednesday and then determine next course of action. 08/18/2017 this situation discussed with oncology and they agree that a dose of Neupogen may be helpful given his relative immunocompromise and ongoing fever and relative leukopenia. This should be started and patient will be monitored. When his fever he feels somewhat poorly. There is no elevation of his bilirubin or alk phos and consequently ongoing or recurrent obstruction of his biliary tract seems to be very unlikely at this time. The fevers could be medication induced, ill give afrom the underlying progression of his cancer, or related to his relative neutropenia. A dose of Neupogen hopefully will resolve neutropenia and potentially his fevers. If he continues to have fever without any other significant focus of infection, we worry about effects of his chemotherapy and the tumor itself. He is due for follow-up computed tomography scan this coming Wednesday and follow-up with oncologist on Wednesday. 08/19/2017 patient had nupogen and developed fever which is now resolved and feeling better except for edema and some shortness of breath.WBC responded well and fevers resolved. No further doses needed. Will give a dose of lasix for edema. will work toward oral antibiotics for home soon. 08/20/2017 was without fever through the day but now again febrile and feeling poorly. Will repeat blood culture, reassess WBC, will alter to merrem given the pancreatic source potential and failure of the Zosyn. US shows mass but no biliary ductal dilatation. May need CT to further evaluate if fever does not improve. Leukopenia has resolved. 08/21/2017 patient is developing some fever again. He was given some fluids and again has become quite edematous. Fluids and hold the dose of Lasix this is given. Antibiotic therapy was altered to Merrem with concerns to Zosyn failure and the ongoing pancreatic source. If he continues to have ongoing fevers a follow-up computed tomography scan should be performed to ensure there are no other acute changes. Follow blood cultures have been requested. Patient otherwise had been consoled. 08/22/2017 the patient's fever trend is improved but he is receiving antipyretics when his temperature since 100. This started having high-grade fever. Still feels quite poorly. With his ongoing fever and ongoing symptoms follow-up computed tomography scan chest and pelvis is requested to evaluate further sources of fever, including potential worsening tumor fever. Antibiotic therapy continues to Merrem that was recently changed. Cultures are all negative at this time. Current Visit: No Status: Acute Code(s): K83.0 - CHOLANGITIS SNOMED Code(s ): 28313640 (4) Fever Current Visit: Yes Status: Acute Priority: High Code(s): R50.9 - FEVER, UNSPECIFIED SNOMED Code(s): 665504181
--- NOTE | 2017-08-22 17:17 | P.PN ---
Subjective Patient with history of pancreatic cancer, had multiple hospitalizations for cholangitis multiple [place] stents that were placed. Came in with fever high- grade couple days ago patient had a high-grade fever. Patient had low-grade fevers last night patient received Neulasta 2-3 days ago. Patient's antibiotics were upgraded to meropenem from Zosyn believing that patient may have Zosyn failure. Patient scored status is full code as per the patient and family members. Constitutional: Denied any fatigue denied any fever. Cardio vascular: denied any chest pain, palpitations Gastrointestinal denied any nausea vomiting Pulmonary: Denied any shortness of breath cough Neurologic denied any new focal deficits Objective - Vital Signs Vital signs: Vital Signs Temp 99.1 F 08/22/17 15:00 Pulse 76 08/22/17 15:00 Resp 16 08/22/17 15:00 BP 163/96 08/22/17 15:00 Pulse Ox 93 L 08/22/17 15:00 Intake & Output 08/21/17 08/22/17 08/22/17 18:59 06:59 18:59 Intake Total 160 740 500 Balance 160 740 500 Intake: Intake, IV Titration 160 200 100 Amount Lactated Ringers 1,000 ml 60 @ 50 mls/hr IV .Q20H MAGDY Rx#:[id number] Meropenem 1 gm In Sodium 100 200 100 Chloride 0.9% 100 ml @ 100 mls/hr IVPB Q8H MAGDY Rx#:[id number] Oral 540 400 Other: Voiding Method Toilet Toilet # Voids 1 2 - Exam PHYSICAL EXAMINATION: GENERAL: The patient is alert and oriented x3, not in any acute distress. Well developed, well nourished. HEENT: Pupils are round and equally reacting to light. EOMI. No scleral icterus. No conjunctival pallor. Normocephalic, atraumatic. No pharyngeal erythema. No thyromegaly. CARDIOVASCULAR: S1 and S2 present. No murmurs, rubs, or gallops. PULMONARY: Chest is clear to auscultation, no wheezing or crackles. ABDOMEN: Soft, nontender, nondistended, normoactive bowel sounds. No palpable organomegaly. MUSCULOSKELETAL: No joint swelling or deformity. EXTREMITIES: No cyanosis, clubbing, or pedal edema. NEUROLOGICAL: Gross neurological examination did not reveal any focal deficits. SKIN: No rashes. - Labs CBC & Chem 7: 08/22/17 07:31 08/22/17 07:31 Labs: Abnormal Lab Results - Last 24 Hours (Table) 08/22/17 08/22/17 Range/Units 07:31 07:31 RBC 3.42 L (4.30-5.90) m/uL Hgb 8.3 L (13.0-17.5) gm/dL Hct 27.5 L (39.0-53.0) % MCH 24.4 L (25.0-35.0) pg MCHC 30.4 L (31.0-37.0) g/dL RDW 21.2 H (11.5-15.5) % Plt Count 483 H (150-450) k/uL Lymphocytes # (Manual) 0.68 L (1.0-4.8) k/uL Monocytes # (Manual) 1.96 H (0-1.0) k/uL Metamyelocytes # (Man) 0.26 H (0) k/uL Myelocytes # (Manual) 0.26 H (0) k/uL Sodium 136 L (137-145) mmol/L Creatinine 0.57 L (0.66-1.25) mg/dL Calcium 8.1 L (8.4-10.2) mg/dL Total Protein 4.4 L (6.3-8.2) g/dL Albumin 2.3 L (3.5-5.0) g/dL Microbiology - Last 24 Hours (Table) 08/16/17 12:29 Blood Culture - Final Blood No Growth after 144 hours 08/16/17 12:44 Blood Culture - Final Blood No Growth after 144 hours 08/15/17 20:10 Blood Culture - Final Blood No Growth after 144 hours 08/20/17 19:39 Blood Culture - Preliminary Blood No Growth after 24 hours 08/18/17 16:26 Blood Culture - Preliminary Blood No Growth after 72 hours Assessment and Plan Plan: -Sepsis secondary to possible cholangitis normal liver enzymes at this time patient is on meropenem considering his continued low-grade fevers CAT scan of the abdomen is being obtained and there may be contribution of Neupogen causing fevers white blood cell count went up after Neupogen and started trended down again patient is status post ERCP and 3 biliary stents that were placed -Pancreatic cancer on chemotherapy -Pancytopenia resolved after Neupogen and is secondary to chemotherapy -Hypothyroidism and previous history of thyroid cancer. -CODE STATUS full code
--- NOTE | 2017-08-22 21:46 | P.EN ---
addendum: the case was known to me from last day of my service on 08/19/2017. Today, the case was assigned to me by the group team in the beginning . when I came to see the pt , he was sitting in bed, not in distress. alert and wake. was at bed side. was upset because of code status was changed to DNR on admission, which was based on patient request at that time when the was absent, patient was alert, oriented x 3, and he showed understanding of his medical status. Today I tried to explain to patient but was adamant to listen. so patient care was transferred to other software team leader physician.
[2017-08-23] MEDS: IBUPROFEN 600 MG TAB PO PRN ×2 (02:01→12:35)
[2017-08-23] MEDS: MEROPENEM 1 GM in SODIUM CHLORIDE 0.9% 100 ML IVPB SCH ×3 (04:33→19:28)
[2017-08-23] MEDS: LEVOTHYROXINE 100 MCG TAB PO SCH (06:15)
[2017-08-23 06:58] LABS: ALT 33 U/L (21-72); AST 36 U/L (17-59); Albumin 2.4 g/dL (3.5-5.0); Alkaline Phosphatase 118 U/L (38-126); Anion Gap 7 mmol/L; Blood Urea Nitrogen 13 mg/dL (9-20); Calcium 8.3 mg/dL (8.4-10.2); Carbon Dioxide 28 mmol/L (22-30); Chloride 101 mmol/L (98-107); Glucose 91 mg/dL (74-99); Potassium 4.2 mmol/L (3.5-5.1); Sodium 136 mmol/L (137-145); Total Bilirubin 0.4 mg/dL (0.2-1.3); Total Protein 4.8 g/dL (6.3-8.2)
[2017-08-23] MEDS: LACTATED RINGERS 1,000 ML IV SCH (07:23)
[2017-08-23] MEDS: IOPAMIDOL-300 CONTRAST 30 ML VIAL (ORAL USE) PO PRN ×2 (08:43→09:28)
[2017-08-23] MEDS: HEPARIN SODIUM,PORCINE 5,000 UNIT/ML 1 ML VIAL SQ SCH ×2 (08:49→20:24)
[2017-08-23] MEDS: DOCUSATE 100 MG CAP PO SCH ×2 (10:46→20:24)
[2017-08-23] MEDS: URSODIOL 300 MG CAP PO SCH ×2 (10:46→20:25)
[2017-08-23] MEDS: guaiFENesin 600 MG TABLET.ER PO SCH ×2 (10:46→20:25)
[2017-08-23] MEDS: PANTOPRAZOLE 40 MG TABLET PO SCH (10:46)
[2017-08-23] MEDS: FLUTICASONE 50MCG/SPRAY NASAL 16GM EA NOSTRIL SCH (10:46)
--- NOTE | 2017-08-23 10:46 | CT ---
EXAMINATION TYPE: CT ChestAbdPelvis w con DATE OF EXAM: 08/23/2017 COMPARISON: Prior CT chest abdomen pelvis 05/28/2017 HISTORY: Pancreatic cancer; fever, carcinoma of biliary duct CT DLP: 1859 mGycm Automated exposure control for dose reduction was used. CONTRAST: CT scan of the chest, abdomen and pelvis is performed with Oral Contrast and with IV Contrast, patien t injected with 100 ml mL of Isovue 300. FINDINGS: LUNGS: Bilateral areas of groundglass opacity are present in the upper lobes. There is a left pleural effusion and associated atelectasis. Metallic densities present in the posterior costophrenic angle on the left and is stable. MEDIASTINUM: There are no greater than 1 cm hilar or mediastinal lymph nodes. No pericardial effusi on is seen. Left jugular central venous catheter is present, port in the left pectoral region, dista l tip of the catheter is within the superior vena cava near the cavoatrial junction. AORTA: No significant abnormality is seen. OTHER: Multiple surgical clips are present within the retroperitoneum causing some artifact. LIVER/GB: Large mass in the posterior right lobe of the liver measures approximately 7.8 cm x 9.1 cm increased from 5.9 x 5.5 cm. There is pneumobilia present. PANCREAS: There is a stent coursing from the level of the small bowel through the pancreatic head int o the common bile duct, no peripancreatic fluid collection is evident. There are artifacts limiting e valuation. SPLEEN: No significant abnormality is seen. ADRENALS: Left adrenal is not seen. Right adrenal gland is stable. KIDNEYS: No significant abnormality is seen. REPRODUCTIVE ORGANS: No gross abnormality seen. BOWEL: No significant abnormality is seen. FREE AIR: No Free Air visible. ASCITES: There is free fluid present within the pelvis. There are changes of anasarca within the sof t tissues. RETROPERITONEAL ADENOPATHY: There is adenopathy present within the region of the fernandez, retroperiton eum chest is increased in size in the interval, central low attenuation compatible with possible tumo r necrosis. Largest node near the pancreatic body is approximately 2.7 cm in short axis increased fro m prior exam 2 cm. Additional node at the level of the proximal portal vein measures 2.9 cm increased from prior 16 mm. LYMPH NODES: No greater than 1 cm abdominal or pelvic lymph nodes are appreciated. URINARY BLADDER: No significant abnormality is seen. PELVIC ADENOPATHY: None visualized. OSSEOUS STRUCTURES: Stable. Small umbilical hernia contains fat. IMPRESSION: Indeterminate areas of groundglass opacity in the upper lobes of the lungs, consider drug toxicity, hypersensitivity pneumonitis, edema, follow-up recommended. Interval progression of patien t's known carcinoma. Interval development of ascites. Additional findings above.
--- NOTE | 2017-08-23 12:23 | P.PN ---
Subjective Progress Note Date: 08/23/17 Principal diagnosis: Pancreatic cancer/ cholangitis/ sepsis This this is a pleasant 67 years old male with past medical history of pancreatic cancer diagnosed in February 2059, testicular cancer, hypothyroidism. Patient is status post ERCP and he had weakness in his biliary tract. Patient is currently on chemotherapy. He presents last night because of fever 103.0. Patient was admitted twice with similar problem. In the last few months. At that time suspected to have sepsis secondary to biliary infection and was treated with antibiotics. Patient denies abdominal pain. No change in bowel habits. No urinary complaints. No nausea or vomiting. No chest pain or dyspnea. No headache or focal neurological complaints has no weakness. No back pain. No abnormal sensation. No pleural effusions or difficulty swallowing. Patient has Port-A-Cath in the left upper chest and he got chemotherapy last week Patient was admitted for IV antibiotic treatment; his pancytopenia remained stable; blood cultures are negative so far Hematology started patient on Neupogen; patient did have episode of low-grade temperature around 100; repeat chest x-ray shows elevated left hemidiaphragm and possible effusion versus infiltrate in left lung; patient is for CT of the chest on Wednesday08/21/2017; patient continues to have spikes of low-grade temperature; complain of significant generalized edema; patient has been evaluated again by ID; IV antibiotic therapy has been escalated from Zosyn to IV Merrem; patient received 1 dose of IV Lasix and has been diuresing well since then; claims chest congestion feels somewhat better; ID recommending possible computed tomography scan of the abdomen if patient continues to spike fevers a change in antibiotics ; all of the above was discussed with patient and family and they are agreeable 08/23/2017; Patient is seen and evaluated in the room at bedside; patient's is present in the room and relates patient had a rough night with some trouble breathing which improved with oxygen; relates patient has been anxious and frustrated due to prolonged hospital course; patient continues to have low- grade temperature and has been recommended further workup with CT of the chest abdomen and pelvis by ID; further recommendations after testing is done Objective - Vital Signs Vital signs: Vital Signs Temp 98.5 F 08/23/17 07:00 Pulse 68 08/23/17 07:00 Resp 16 08/23/17 07:00 BP 166/85 08/23/17 07:00 Pulse Ox 98 08/23/17 07:00 Intake & Output 08/22/17 08/23/17 08/23/17 18:59 06:59 18:59 Intake Total 500 690 Balance 500 690 Intake: Intake, IV Titration 100 100 Amount Meropenem 1 gm In Sodium 100 100 Chloride 0.9% 100 ml @ 100 mls/hr IVPB Q8H [facility] Rx#:[id number] Oral 400 590 Other: Voiding Method Toilet Toilet # Voids 2 2 - Exam - Constitutional General appearance: Present: average body habitus, cooperative, no acute distress - EENT Eyes: Present: anicteric sclerae, EOMI, PERRLA, normal appearance ENT: Present: hearing grossly normal, normal oropharynx Ears: bilateral: normal - Neck Neck: Present: normal ROM. Absent: lymphadenopathy, rigidity, thyromegaly Carotids: negative: bruit present Thyroid: bilateral: normal size, negative: enlarged, nodule - Respiratory Respiratory: bilateral: CTA, negative: rales, rhonchi, wheezing - Cardiovascular Rhythm: regular Heart sounds: normal: S1, S2 Abnormal Heart Sounds: Absent: systolic murmur, diastolic murmur - Gastrointestinal General gastrointestinal: Present: normal bowel sounds, soft. Absent: distended , organomegaly, tenderness - Genitourinary Genitourinary Comment(s): deferred - Integumentary Integumentary: Present: normal turgor. Absent: jaundiced, rash, ulcer - Neurologic Neurologic: Present: CNII-XII intact. Absent: focal deficits - Musculoskeletal Musculoskeletal: Present: gait normal, strength equal bilaterally - Psychiatric Psychiatric: Present: A&O x's 3, appropriate affect, intact judgment & insight - Labs CBC & Chem 7: 08/22/17 07:31 08/23/17 06:20 Labs: Abnormal Lab Results - Last 24 Hours (Table) 08/22/17 08/23/17 Range/Units 07:31 06:20 Lymphocytes # (Manual) 0.68 L (1.0-4.8) k/uL Monocytes # (Manual) 1.96 H (0-1.0) k/uL Metamyelocytes # (Man) 0.26 H (0) k/uL Myelocytes # (Manual) 0.26 H (0) k/uL Sodium 136 L (137-145) mmol/L Creatinine 0.62 L (0.66-1.25) mg/dL Calcium 8.3 L (8.4-10.2) mg/dL Total Protein 4.8 L (6.3-8.2) g/dL Albumin 2.4 L (3.5-5.0) g/dL Microbiology - Last 24 Hours (Table) 08/20/17 19:39 Blood Culture - Preliminary Blood No Growth after 48 hours 08/18/17 16:26 Blood Culture - Preliminary Blood No Growth after 96 hours 08/16/17 12:29 Blood Culture - Final Blood No Growth after 144 hours 08/16/17 12:44 Blood Culture - Final Blood No Growth after 144 hours Assessment and Plan Assessment: 1. Possible cholangitis/sepsis; patient continues to have low-grade temperature ; CT of abdomen and pelvis has been recommended by ID; patient did have episode of shortness of breath and hypoxia; we will add CT of the chest along with abdomen and pelvis for further evaluation; patient's white blood count trended up with Neupogen injection now starting to trend down; we will continue to monitor CBC; further recommendations after CAT scans are available 2. Pancreatic cancer, on chemotherapy. 3. Status post 3 stents in the biliary system, history of ERCP 4. Pancytopenia, history of recent chemotherapy 1 week prior to admission Plan: Patient presents with fever of one-day duration, similar to problems about 2 months ago. Continue with the same and treatment. Continue with symptomatic treatment. Temperature could be controlled with ibuprofen. Patient to continue on Zosyn. Infectious disease, heme oncology and GI input is appreciated. Continue with IV fluids and antibiotics. UA was unremarkable for infection. Patient continued to spike fever, repeat chest x-ray: Possible left lower infiltrate Patient has no diarrhea. Port-A-Cath in place in the left upper chest. Patient has a worsening dry cough, continue symptomatic treatment. ID team following the patient Continue with DVT and GI prophylaxis. Further recommendation based on the clinical course. Prognosis is guarded. CODE STATUS discussed with the patient and he confirms to me he is DO NOT RESUSCITATE/DO NOT RESUSCITATE Time with Patient: Greater than 30
[2017-08-23] MEDS ORDERED: IPRATROPIUM-ALBUTEROL 3 ML NEB INHALATION PRN (14:31)
--- NOTE | 2017-08-23 14:31 | P.CNPUL ---
History of Present Illness Consult date: 08/23/17 Reason for consult: dyspnea, cough, hypoxemia, pneumonia, abnormal CXR/CT Chief complaint: Shortness of breath History of present illness: Pulmonary consult dated 08/23/2017 This is a pleasant 67-year-old male with history of advanced pancreatic carcinoma. The patient was seen in the emergency room initially back on the with a fever. The patient down has apparently developed shortness of breath and a bit of a cough. Producing a small amount of phlegm. Had some temperature elevation. I was consulted because of possible pneumonia. The patient's chest x-ray on admission was normal. A subsequent chest x-ray again revealed only some atelectasis. A more recent CAT scan reveals some groundglass changes in the chest, in my opinion looks more like fluid overload then a pneumonia. He has received some Lasix recently with some benefit but I believe his Lasix dose has been under prescribed. The patient has been on antibiotics since admission. Antibiotics were recently changed by the infectious disease doctor. The patient has been in and out of the hospital both here and at [facility]. His knows the story very well. His medical history is positive for hypothyroidism testicular cancer advanced pancreatic carcinoma sepsis as well as a number of other abnormalities. He apparently is also suffered from bile duct obstruction requiring interventions. Recently the patient's saturations dropped down to 88% and was placed on oxygen with some improvement. He states now that he feels like he is fluid overloaded and bloated with fluid. His hands feet abdomen all feel tight to him. Review of Systems 12 point review of system is positive for shortness of breath cough mostly nonproductive and fluid retention. Past Medical History Past Medical History: Cancer, Thyroid Disorder Additional Past Medical History / Comment(s): Testicular cancer, pancreatic cancer (diagnosed February 2015), sepsis, hypothyroid, upper/lower bridges History of Any Multi-Drug Resistant Organisms: None Reported Past Surgical History: Hernia Repair, Tonsillectomy Additional Past Surgical History / Comment(s): 1979 left testicle + lymph nodes removed along spine, right inguinal hernia repair x3 with mesh, hemorrhoidectomy (2011), colonoscopy (Jan 2015), titanium stent in pancreas (2015 @ [facility]), restent in 01/2016 ([facility]), power port. Past Anesthesia/Blood Transfusion Reactions: No Reported Reaction Past Psychological History: No Psychological Hx Reported Additional Psychological History / Comment(s): Pt resides with his spouse and son. There is a cat in the household. Pt is independent. 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 He lives at home with his and son. There is a cat in the home. No recent travel or service. Past Drug Use History: None Reported Additional Drug Use History / Comment(s): . - Past Family History Mother Family Medical History: Cancer Additional Family Medical History / Comment(s): Cancer x 3, lived until age 89. Sister(s) Family Medical History: Cancer Additional Family Medical History / Comment(s): Breast cancer. Brother(s) Family Medical History: Cancer Father Family Medical History: Cancer Additional Family Medical History / Comment(s): Colon/bladder cancer x 3, at 94 Medications and Allergies Home Medications Medication Instructions Recorded Confirmed Type Docusate [Colace] 100 mg PO BID 11/19/15 08/16/17 History Fluticasone Nasal [place] [Flonase 2 spray EA NOSTRIL DAILY 05/23/16 08/16/17 History Nasal [place]] Omeprazole [PriLOSEC] 20 mg PO DAILY 10/04/16 08/16/17 History Ursodiol 300 mg PO BID 03/16/17 08/16/17 History Levothyroxine Sodium [Synthroid] 100 mcg PO DAILY 06/01/17 08/16/17 History Prochlorperazine [Compazine] 10 mg PO Q6H PRN 06/18/17 08/16/17 History guaiFENesin [Mucinex] 600 mg PO BID 06/18/17 08/16/17 History Nystatin 100,000 unit PO Q6H PRN 08/16/17 08/16/17 History Allergies Allergy/AdvReac Type Severity Reaction Status Date / Time morphine Allergy Unknown Verified 08/16/17 08:00 Physical Exam Osteopathic Statement: *. No significant issues noted on an osteopathic structural exam other than those noted in the History and Physical/Consult. Vitals: Vital Signs Temp Pulse Resp BP Pulse Ox 08/23/17 07:00 98.5 F 68 16 166/85 98 08/22/17 23:00 98.8 F 89 16 139/88 90 L 08/22/17 15:00 99.1 F 76 16 163/96 93 L Intake and Output 08/22/17 08/23/17 08/23/17 22:59 06:59 14:59 Intake Total 590 100 100 Balance 590 100 100 Intake: Intake, IV Titration 100 100 Amount Meropenem 1 gm In Sodium 100 100 Chloride 0.9% 100 ml @ 100 mls/hr IVPB Q8H [facility] Rx#:[id number] Oral 590 Other: Voiding Method Toilet # Voids 2 No acute distress, oriented 3. Nasal O2 in place. HEENT examination is grossly unremarkable. Mucous membranes are moist. No oral lesions. Neck supple. Full range of motion. No adenopathy thyromegaly or neck vein distention. Cardiovascular examination reveals regular rhythm rate. S1-S2 normal. No S3 or S4. No discernible murmur noted. Lungs reveal mostly clear breath sounds. Her sounds are equal bilaterally. Minimal fine crackles are noted. No wheezes or rhonchi. Abdomen soft bowel sounds are heard. No masses or tenderness. Mild abdominal distention. Extremities are intact. Mild edema noted in the hands and also on the forearms legs ankles and feet. It is 1-2+ and slightly pitting Skin is without rash or lesion. Neurologic examination is brief but nonfocal. Results - Laboratory Findings CBC and BMP: 08/22/17 07:31 08/23/17 06:20 Abnormal lab findings: Abnormal Labs 08/15/17 08/15/17 08/15/17 20:10 20:10 20:10 WBC RBC 3.87 L Hgb 10.2 L Hct 30.5 L MCV 78.9 L MCH MCHC RDW 20.7 H Plt Count Neutrophils # Lymphocytes # 0.4 L Lymphocytes # (Manual) Monocytes # Monocytes # (Manual) Metamyelocytes # (Man) Myelocytes # (Manual) Haptoglobin Sodium 130 L Chloride 96 L Carbon Dioxide BUN Creatinine Glucose 111 H Plasma Lactic Acid Paddy 2.3 H* Calcium AST 60 H Alkaline Phosphatase 149 H Total Protein 5.8 L Albumin 3.3 L Urine Protein 08/15/17 08/15/17 08/16/17 20:10 21:50 08:42 WBC 3.0 L RBC 3.23 L Hgb 8.1 L D Hct 26.0 L MCV MCH MCHC RDW 20.4 H Plt Count 121 L Neutrophils # Lymphocytes # Lymphocytes # (Manual) 0.24 L Monocytes # Monocytes # (Manual) Metamyelocytes # (Man) Myelocytes # (Manual) Haptoglobin 296.0 H Sodium Chloride Carbon Dioxide BUN Creatinine Glucose Plasma Lactic Acid Paddy Calcium AST Alkaline Phosphatase Total Protein Albumin Urine Protein Trace H 08/16/17 08/17/17 08/17/17 08:42 07:27 07:27 WBC 3.1 L RBC 3.29 L Hgb 8.3 L Hct 26.9 L MCV MCH MCHC 30.9 L RDW 21.0 H Plt Count 132 L Neutrophils # Lymphocytes # Lymphocytes # (Manual) 0.12 L Monocytes # Monocytes # (Manual) Metamyelocytes # (Man) Myelocytes # (Manual) Haptoglobin Sodium 133 L 136 L Chloride Carbon Dioxide 20 L BUN Creatinine Glucose 131 H Plasma Lactic Acid Paddy Calcium 7.8 L 8.1 L AST Alkaline Phosphatase Total Protein 4.6 L 4.6 L Albumin 2.4 L 2.4 L Urine Protein 08/18/17 08/18/17 08/18/17 06:43 06:43 12:40 WBC 2.1 L 3.7 L RBC 3.10 L 3.48 L Hgb 7.7 L 8.7 L Hct 25.2 L 27.9 L MCV MCH MCHC 30.8 L RDW 21.0 H 20.6 H Plt Count Neutrophils # Lymphocytes # Lymphocytes # (Manual) 0.30 L Monocytes # Monocytes # (Manual) Metamyelocytes # (Man) Myelocytes # (Manual) Haptoglobin Sodium 134 L Chloride Carbon Dioxide 21 L BUN 8 L Creatinine 0.62 L Glucose Plasma Lactic Acid Paddy Calcium 7.8 L AST Alkaline Phosphatase Total Protein 4.4 L Albumin 2.2 L Urine Protein 08/19/17 08/19/17 08/20/17 07:00 07:00 06:41 WBC RBC 3.38 L Hgb 8.5 L Hct 27.2 L MCV MCH MCHC RDW 20.9 H Plt Count Neutrophils # 7.9 H Lymphocytes # 0.3 L Lymphocytes # (Manual) Monocytes # Monocytes # (Manual) Metamyelocytes # (Man) Myelocytes # (Manual) Haptoglobin Sodium Chloride Carbon Dioxide BUN 8 L 8 L Creatinine Glucose 107 H Plasma Lactic Acid Paddy Calcium 8.1 L 8.2 L AST Alkaline Phosphatase Total Protein 4.5 L 4.3 L Albumin 2.3 L 2.2 L Urine Protein 08/20/17 08/21/17 08/21/17 19:39 07:29 07:29 WBC 12.8 H 10.9 H RBC 3.34 L 3.43 L Hgb 8.3 L 8.3 L Hct 27.3 L 27.2 L MCV 79.4 L MCH 24.7 L 24.1 L MCHC 30.2 L 30.4 L RDW 21.4 H 21.1 H Plt Count Neutrophils # 10.3 H 8.6 H Lymphocytes # 0.6 L 0.5 L Lymphocytes # (Manual) Monocytes # 1.2 H 1.2 H Monocytes # (Manual) Metamyelocytes # (Man) Myelocytes # (Manual) Haptoglobin Sodium Chloride Carbon Dioxide BUN Creatinine 0.56 L Glucose Plasma Lactic Acid Paddy Calcium 8.0 L AST Alkaline Phosphatase Total Protein 4.4 L Albumin 2.3 L Urine Protein 08/22/17 08/22/17 08/23/17 07:31 07:31 06:20 WBC RBC 3.42 L Hgb 8.3 L Hct 27.5 L MCV MCH 24.4 L MCHC 30.4 L RDW 21.2 H Plt Count 483 H Neutrophils # Lymphocytes # Lymphocytes # (Manual) 0.68 L Monocytes # Monocytes # (Manual) 1.96 H Metamyelocytes # (Man) 0.26 H Myelocytes # (Manual) 0.26 H Haptoglobin Sodium 136 L 136 L Chloride Carbon Dioxide BUN Creatinine 0.57 L 0.62 L Glucose Plasma Lactic Acid Paddy Calcium 8.1 L 8.3 L AST Alkaline Phosphatase Total Protein 4.4 L 4.8 L Albumin 2.3 L 2.4 L Urine Protein - Diagnostic Findings Chest x-ray: report reviewed (Labs x-rays a medications are all reviewed.), image reviewed CT scan - chest: report reviewed, image reviewed Assessment and Plan Assessment: Assessment Fever, of unclear etiology, currently being evaluated by infectious disease and other specialist. Possible low-grade sepsis. Doubt pneumonia, suspect fluid overload given the CT findings of a groundglass/ mosaic pattern. Pancreatic cancer Biliary tract obstruction, status post stent placement History of pancytopenia History of hypothyroidism History of testicular carcinoma Plan: Plan dated 08/23/2017 The patient is currently on antibiotics. All his cultures are thus far negative. The patient would benefit some additional diuretic. In addition, breathing treatments to be in order. Finally, antitussive to be comforting to the patient. Additional recommendations suggestions are forthcoming. We'll continue to follow. Prognosis is very guarded. Time with Patient: Greater than 30
[2017-08-23] MEDS ORDERED: BENZONATATE 100 MG CAP PO PRN (14:32)
[2017-08-23] MEDS: ACETAMINOPHEN TAB 325 MG TAB PO PRN (15:11)
[2017-08-23] MEDS: FUROSEMIDE 10 MG/ML 4 ML VIAL IV SCH ×2 (16:36→23:58)
[2017-08-23] MEDS: IPRATROPIUM-ALBUTEROL 3 ML NEB INHALATION SCH (19:00)
[2017-08-24] MEDS: IBUPROFEN 600 MG TAB PO PRN ×3 (00:01→20:35)
[2017-08-24] MEDS: guaiFENesin SYRUP 100MG/5ML 200 MG/10 ML CUP PO PRN ×3 (00:01→20:36)
[2017-08-24] MEDS: LACTATED RINGERS 1,000 ML IV SCH ×2 (03:02→22:48)
[2017-08-24] MEDS: MEROPENEM 1 GM in SODIUM CHLORIDE 0.9% 100 ML IVPB SCH ×3 (03:07→19:28)
[2017-08-24] MEDS: LEVOTHYROXINE 100 MCG TAB PO SCH (06:08)
[2017-08-24] MEDS: FLUTICASONE 50MCG/SPRAY NASAL 16GM EA NOSTRIL SCH (08:07)
[2017-08-24] MEDS: DOCUSATE 100 MG CAP PO SCH ×3 (08:07→20:36)
[2017-08-24] MEDS: FUROSEMIDE 10 MG/ML 4 ML VIAL IV SCH ×2 (08:07→17:56)
[2017-08-24] MEDS: PANTOPRAZOLE 40 MG TABLET PO SCH (08:07)
[2017-08-24] MEDS: HEPARIN SODIUM,PORCINE 5,000 UNIT/ML 1 ML VIAL SQ SCH ×2 (08:07→20:36)
[2017-08-24] MEDS: URSODIOL 300 MG CAP PO SCH ×2 (08:07→20:36)
[2017-08-24] MEDS: guaiFENesin 600 MG TABLET.ER PO SCH ×2 (08:07→20:36)
[2017-08-24 09:17] LABS: Anisocytosis Moderate; HCT 32.9 % (39.0-53.0); HGB 10.2 gm/dL (13.0-17.5); Hypochromasia Marked; MCH 24.9 pg (25.0-35.0); MCV 80.4 fL (80.0-100.0); Mean Platelet Volume 6.7; Microcytosis Slight; Platelet Count 588 k/uL (150-450); Poikilocytosis Slight; RBC 4.09 m/uL (4.30-5.90); RDW 21.4 % (11.5-15.5)
[2017-08-24] MEDS: IPRATROPIUM-ALBUTEROL 3 ML NEB INHALATION SCH ×3 (09:17→20:47)
[2017-08-24 09:57] LABS: ALT 31 U/L (21-72); AST 46 U/L (17-59); Albumin 2.9 g/dL (3.5-5.0); Alkaline Phosphatase 134 U/L (38-126); Anion Gap 9 mmol/L; Blood Urea Nitrogen 12 mg/dL (9-20); Calcium 8.8 mg/dL (8.4-10.2); Carbon Dioxide 30 mmol/L (22-30); Chloride 98 mmol/L (98-107); Glucose 112 mg/dL (74-99); Potassium 4.1 mmol/L (3.5-5.1); Sodium 137 mmol/L (137-145); Total Bilirubin 0.5 mg/dL (0.2-1.3); Total Protein 5.6 g/dL (6.3-8.2)
[2017-08-24 10:51] LABS: Band Neutrophils % 1 %; Eosinophils # (M) 0.08 k/uL (0-0.7); Metamyelocytes # (M) 0.16 k/uL (0); Metamyelocytes % 2 %; Myelocytes # (M) 0.16 k/uL (0); Myelocytes % 2 %; Neutrophils % (M) 64 %; Nucleated Red Blood Cells 1 /100 WBC (0-0); Total Cells Counted 200
[2017-08-24 10:52] LABS: Lymphocytes # (M) 0.95 k/uL (1.0-4.8); Monocytes # (M) 1.58 k/uL (0-1.0); WBC 7.9 k/uL (3.8-10.6)
[2017-08-24 10:57] LABS: Ovalocytes Present
[2017-08-24 10:59] LABS: Polychromasia Present
--- NOTE | 2017-08-24 11:14 | P.PN ---
Subjective Progress Note Date: 08/24/17 Principal diagnosis: Fever of unclear etiology, currently under evaluation, diffuse pulmonary infiltrates This is a pleasant 67-year-old male with history of advanced pancreatic carcinoma. The patient was seen in the emergency room initially back on the with a fever. The patient down has apparently developed shortness of breath and a bit of a cough. Producing a small amount of phlegm. Had some temperature elevation. I was consulted because of possible pneumonia. The patient's chest x-ray on admission was normal. A subsequent chest x-ray again revealed only some atelectasis. A more recent CAT scan reveals some groundglass changes in the chest, in my opinion looks more like fluid overload then a pneumonia. He has received some Lasix recently with some benefit but I believe his Lasix dose has been under prescribed. The patient has been on antibiotics since admission. Antibiotics were recently changed by the infectious disease doctor. The patient has been in and out of the hospital both here and at [facility]. His knows the story very well. His medical history is positive for hypothyroidism testicular cancer advanced pancreatic carcinoma sepsis as well as a number of other abnormalities. He apparently is also suffered from bile duct obstruction requiring interventions. Recently the patient's saturations dropped down to 88% and was placed on oxygen with some improvement. He states now that he feels like he is fluid overloaded and bloated with fluid. His hands feet abdomen all feel tight to him. On and , patient seen in follow-up on oncology floor. His dyspnea has improved, and his generalized edema has improved as well, but patient still has residual edema in his bilateral upper and lower extremities. The patient on IV diuretics comfortable Lasix 40 mg every 8 hours, patient has been diuresing, today's lab work has been reviewed, patient's electrolytes and renal profile remained within normal limits. T-max in the last 24 hours was 10 1F, significant episode of fever was last night at midnight. Blood cultures and urine culture remained negative to date. Patient is on empiric coverage in the form of meropenem. No chest congestion, no sputum production, no chest tenderness. Diffuse infiltrates seen on chest x-ray are thought to be related to component of fluid overload, rather than bacterial pneumonia. Overall patient is improving, less short of breath, lung sounds are positive for a few crackles over left lower base. O2 sat on 2 L per Nasal Cannula Is 98%. Objective - Vital Signs Vital signs: Vital Signs Temp 97.6 F 08/24/17 06:35 Pulse 76 08/24/17 09:18 Resp 18 08/24/17 06:35 BP 147/82 08/24/17 06:35 Pulse Ox 98 08/24/17 06:35 Intake & Output 08/23/17 08/24/17 08/24/17 18:59 06:59 18:59 Intake Total 100 1180 Balance 100 1180 Intake: Intake, IV Titration 100 Amount Meropenem 1 gm In Sodium 100 Chloride 0.9% 100 ml @ 100 mls/hr IVPB Q8H [facility] Rx#:[id number] Oral 1180 Other: Voiding Method Toilet # Voids 4 - Exam No acute distress, oriented 3. Nasal O2 in place. HEENT examination is grossly unremarkable. Mucous membranes are moist. No oral lesions. Neck supple. Full range of motion. No adenopathy thyromegaly or neck vein distention. Cardiovascular examination reveals regular rhythm rate. S1-S2 normal. No S3 or S4. No discernible murmur noted. Lungs reveal mostly clear breath sounds. Her sounds are equal bilaterally. Minimal fine crackles are noted at the left lower base. No wheezes or rhonchi. Abdomen soft bowel sounds are heard. No masses or tenderness. Mild abdominal distention. Extremities are intact. Mild edema noted in the hands and also on the forearms legs ankles and feet. It is 1-2+ and slightly pitting Skin is without rash or lesion. Neurologic examination is brief but nonfocal. - Labs CBC & Chem 7: 08/24/17 08:16 08/24/17 08:16 Labs: Abnormal Lab Results - Last 24 Hours (Table) 08/24/17 08/24/17 Range/Units 08:16 08:16 RBC 4.09 L (4.30-5.90) m/uL Hgb 10.2 L (13.0-17.5) gm/dL Hct 32.9 L (39.0-53.0) % MCH 24.9 L (25.0-35.0) pg RDW 21.4 H (11.5-15.5) % Plt Count 588 H (150-450) k/uL Lymphocytes # (Manual) 0.95 L (1.0-4.8) k/uL Monocytes # (Manual) 1.58 H (0-1.0) k/uL Metamyelocytes # (Man) 0.16 H (0) k/uL Myelocytes # (Manual) 0.16 H (0) k/uL Nucleated RBCs 1 H (0-0) /100 WBC Glucose 112 H (74-99) mg/dL Alkaline Phosphatase 134 H (38-126) U/L Total Protein 5.6 L (6.3-8.2) g/dL Albumin 2.9 L (3.5-5.0) g/dL Microbiology - Last 24 Hours (Table) 08/20/17 19:39 Blood Culture - Preliminary Blood No Growth after 72 hours 08/18/17 16:26 Blood Culture - Preliminary Blood No Growth after 120 hours Assessment and Plan Plan: Assessment: Assessment Fever, of unclear etiology, currently being evaluated by infectious disease and other specialist. Possible low-grade sepsis. Doubt pneumonia, suspect fluid overload given the CT findings of a groundglass/ mosaic pattern. Pancreatic cancer Biliary tract obstruction, status post stent placement History of pancytopenia History of hypothyroidism History of testicular carcinoma Plan: Plan dated 08/23/2017 The patient is currently on antibiotics. All his cultures are thus far negative. The patient would benefit some additional diuretic. In addition, breathing treatments to be in order. Finally, antitussive to be comforting to the patient. Additional recommendations suggestions are forthcoming. We'll continue to follow. Prognosis is very guarded. Plan dated 08/24/2017 Continue current antibiotic coverage, cultures remain negative to date. Continue IV diuresis, patient has responded to diuretics, on today's exam. Is less short of breath appearance of generalized edema has improved. Monitor electrolytes, renal profile, monitor fever pattern. We'll continue to follow I performed a history & physical examination of the patient and discussed their management with my nurse practitioner, Elisa Cardenas. I reviewed the nurse practitioner's note and agree with the documented findings and plan of care. Lung sounds are few crackles at the left lower base. The findings and the impression was discussed with the patient. I attest to the documentation by the nurse practitioner. Time with Patient: Less than 30
[2017-08-24] MEDS: ACETAMINOPHEN TAB 325 MG TAB PO PRN (12:39)
[2017-08-24] MEDS ORDERED: LOPERAMIDE 2 MG CAP PO PRN (12:58)
[2017-08-25] MEDS: MEROPENEM 1 GM in SODIUM CHLORIDE 0.9% 100 ML IVPB SCH ×3 (04:50→21:04)
[2017-08-25] MEDS: LEVOTHYROXINE 100 MCG TAB PO SCH (07:06)
[2017-08-25 07:29] LABS: Albumin 2.7 g/dL (3.5-5.0); Anion Gap 9 mmol/L; Calcium 8.4 mg/dL (8.4-10.2); Carbon Dioxide 31 mmol/L (22-30); Chloride 96 mmol/L (98-107); Glucose 92 mg/dL (74-99); Sodium 136 mmol/L (137-145); Total Bilirubin 0.5 mg/dL (0.2-1.3); Total Protein 5.3 g/dL (6.3-8.2)
[2017-08-25 07:33] LABS: Blood Urea Nitrogen 13 mg/dL (9-20); Potassium 4.2 mmol/L (3.5-5.1)
[2017-08-25 07:34] LABS: ALT 29 U/L (21-72); AST 49 U/L (17-59); Alkaline Phosphatase 112 U/L (38-126)
[2017-08-25] MEDS: URSODIOL 300 MG CAP PO SCH ×2 (07:43→21:06)
[2017-08-25] MEDS: PANTOPRAZOLE 40 MG TABLET PO SCH (07:43)
[2017-08-25] MEDS: guaiFENesin 600 MG TABLET.ER PO SCH ×2 (07:43→21:06)
[2017-08-25] MEDS: FUROSEMIDE 10 MG/ML 4 ML VIAL IV SCH ×4 (07:43→23:39)
[2017-08-25] MEDS: FLUTICASONE 50MCG/SPRAY NASAL 16GM EA NOSTRIL SCH (07:43)
[2017-08-25] MEDS: DOCUSATE 100 MG CAP PO SCH ×2 (07:44→21:05)
[2017-08-25] MEDS: HEPARIN SODIUM,PORCINE 5,000 UNIT/ML 1 ML VIAL SQ SCH ×2 (08:07→21:04)
[2017-08-25] MEDS: IPRATROPIUM-ALBUTEROL 3 ML NEB INHALATION SCH ×3 (09:37→20:45)
[2017-08-25] MEDS: ACETAMINOPHEN TAB 325 MG TAB PO PRN (10:27)
--- NOTE | 2017-08-25 10:27 | P.PN ---
Subjective Progress Note Date: 08/25/17 Principal diagnosis: Fever of unclear etiology. Patient seen again today 08/25/2017 in follow-up on the oncology unit. He is awake and alert in no acute distress. He is maintaining good O2 saturations in the 90s on 2 L/m per nasal cannula. His been voiding quite a bit. He remains on Lasix 40 mg IV push every 8 hours. Blood cultures ever reveal no growth thus far. He is currently afebrile. He is currently on meropenem. Objective - Vital Signs Vital signs: Vital Signs Temp 97.4 F L 08/25/17 05:00 Pulse 112 H 08/25/17 10:00 Resp 16 08/25/17 05:00 BP 160/84 08/25/17 05:00 Pulse Ox 94 L 08/25/17 09:48 Intake & Output 08/24/17 08/25/17 08/25/17 18:59 06:59 18:59 Intake Total 100 1060 Balance 100 1060 Weight 86.183 kg Intake: Intake, IV Titration 100 Amount Meropenem 1 gm In Sodium 100 Chloride 0.9% 100 ml @ 100 mls/hr IVPB Q8H [facility] Rx#:[id number] Oral 1060 Other: Voiding Method Toilet # Voids 2 - Exam No acute distress, oriented 3. Nasal O2 in place. HEENT examination is grossly unremarkable. Mucous membranes are moist. No oral lesions. Neck supple. Full range of motion. No adenopathy thyromegaly or neck vein distention. Cardiovascular examination reveals regular rhythm rate. S1-S2 normal. No S3 or S4. No discernible murmur noted. Lungs reveal mostly clear breath sounds. Her sounds are equal bilaterally. Minimal fine crackles are noted. No wheezes or rhonchi. Abdomen soft bowel sounds are heard. No masses or tenderness. Mild abdominal distention. Extremities are intact. Mild edema noted in the hands and also on the forearms legs ankles and feet. It is 1-2+ and slightly pitting Skin is without rash or lesion. Neurologic examination is brief but nonfocal. - Labs CBC & Chem 7: 08/24/17 08:16 08/25/17 06:56 Labs: Abnormal Lab Results - Last 24 Hours (Table) 08/24/17 08/25/17 Range/Units 08:16 06:56 Lymphocytes # (Manual) 0.95 L (1.0-4.8) k/uL Monocytes # (Manual) 1.58 H (0-1.0) k/uL Metamyelocytes # (Man) 0.16 H (0) k/uL Myelocytes # (Manual) 0.16 H (0) k/uL Nucleated RBCs 1 H (0-0) /100 WBC Sodium 136 L (137-145) mmol/L Chloride 96 L (98-107) mmol/L Carbon Dioxide 31 H (22-30) mmol/L Creatinine 0.58 L (0.66-1.25) mg/dL Total Protein 5.3 L (6.3-8.2) g/dL Albumin 2.7 L (3.5-5.0) g/dL Microbiology - Last 24 Hours (Table) 08/20/17 19:39 Blood Culture - Preliminary Blood No Growth after 96 hours 08/18/17 16:26 Blood Culture - Final Blood No Growth after 144 hours Assessment and Plan Assessment: Assessment Fever, of unclear etiology, currently being evaluated by infectious disease and other specialist. Possible low-grade sepsis. Doubt pneumonia, suspect fluid overload given the CT findings of a groundglass/ mosaic pattern. Pancreatic cancer Biliary tract obstruction, status post stent placement History of pancytopenia History of hypothyroidism History of testicular carcinoma Plan: The patient was seen and evaluated by Dr. Nugent. He is improved today as compared to yesterday. He has been voiding quite a bit. Creatinine is stable. We'll continue with Lasix 40 mg IV push every 4 8 hours. We'll repeat a chest x-ray in the a.m. We'll continue to follow. I, the cosigning physician, performed a history & physical examination of the patient. Lungs sounds with faint crackles in the posterior bases. Maintaining good O2 saturations in the 90s on 2 L/m per nasal cannula. I discussed the assessment and plan of care with my nurse practitioner, Liz Reyes. I attest to the above note as dictated by her.
[2017-08-25] MEDS: IBUPROFEN 600 MG TAB PO PRN (18:03)
[2017-08-25] MEDS: LACTATED RINGERS 1,000 ML IV SCH (21:04)
--- NOTE | 2017-08-25 23:20 | P.PN ---
Subjective Progress Note Date: 08/24/17 Principal diagnosis: Sepsis This this is a pleasant 67 years old male with past medical history of pancreatic cancer diagnosed in February 2015, testicular cancer, hypothyroidism. Patient is status post ERCP and he had weakness in his biliary tract. Patient is currently on chemotherapy. He presents last night because of fever 103.0. Patient was admitted twice with similar problem. In the last few months. At that time suspected to have sepsis secondary to biliary infection and was treated with antibiotics. Patient denies abdominal pain. No change in bowel habits. No urinary complaints. No nausea or vomiting. No chest pain or dyspnea. No headache or focal neurological complaints has no weakness. No back pain. No abnormal sensation. No pleural effusions or difficulty swallowing. Patient has Port-A-Cath in the left upper chest and he got chemotherapy last week Patient was admitted for IV antibiotic treatment; his pancytopenia remained stable; blood cultures are negative so far Hematology started patient on Neupogen; patient did have episode of low-grade temperature around 100; repeat chest x-ray shows elevated left hemidiaphragm and possible effusion versus infiltrate in left lung; patient is for CT of the chest on Wednesday08/21/2017; patient continues to have spikes of low-grade temperature; complain of significant generalized edema; patient has been evaluated again by ID; IV antibiotic therapy has been escalated from Zosyn to IV Merrem; patient received 1 dose of IV Lasix and has been diuresing well since then; claims chest congestion feels somewhat better; ID recommending possible computed tomography scan of the abdomen if patient continues to spike fevers a change in antibiotics ; all of the above was discussed with patient and family and they are agreeable 08/23/2017; Patient is seen and evaluated in the room at bedside; patient's is present in the room and relates patient had a rough night with some trouble breathing which improved with oxygen; relates patient has been anxious and frustrated due to prolonged hospital course; patient continues to have low- grade temperature and has been recommended further workup with CT of the chest abdomen and pelvis by ID; further recommendations after testing is done. 08/24/2017 Patient says that his breathing status is improved. Patient is being transferred with IV Lasix 40 mg every 8 hourly. Patient is still having low- grade fevers. Cultures have been negative so far. Current antibiotics no cough meropenem. No nausea vomiting or abdominal pain. Diarrhea improved. C. diff negative. CT chest and abdomen/pelvis showed intermediate areas of groundglass opacity in the upper lobes of the lung, consider drug toxicity, hypersensitivity pneumonitis, edema. Interval progression of carcinoma. Interval development of ascites. Overall patient is clinically improving. Pulmonary is following. Currently on 2 L nasal cannula. Discussed with his at bedside in detail and all her questions were answered. All other review of systems negative except the above Current medications reviewed. Objective - Vital Signs Vital signs: Vital Signs Temp 97.6 F 08/24/17 06:35 Pulse 76 08/24/17 13:54 Resp 18 08/24/17 06:35 BP 147/82 08/24/17 06:35 Pulse Ox 98 08/24/17 06:35 Intake & Output 08/23/17 08/24/17 08/24/17 18:59 06:59 18:59 Intake Total 100 1180 Balance 100 1180 Intake: Intake, IV Titration 100 Amount Meropenem 1 gm In Sodium 100 Chloride 0.9% 100 ml @ 100 mls/hr IVPB Q8H [facility] Rx#:[id number] Oral 1180 Other: Voiding Method Toilet # Voids 4 - Exam PHYSICAL EXAMINATION: Patient is lying in the bed comfortably, no acute distress, awake alert and oriented.. HEENT: Normocephalic. Neck is supple. Pupils reactive. Nostrils clear. Oral cavity is moist. Ears reveal no drainage. Neck reveals no JVD, carotid bruits, or thyromegaly. CHEST EXAMINATION: Trachea is central. Symmetrical expansion. Bibasilar crackles positive. No wheezing or rhonchi. CARDIAC: Normal S1, S2 with no gallops. No murmurs ABDOMEN: Soft. Bowel sounds normal. No organomegaly. No abdominal bruits. Extremities: reveal no edema. No clubbing or cyanosis Neurologically awake, alert, oriented x3 with well-coordinated movements. No focal deficits noted Skin: No rash or skin lesions. Psychiatric: Coperative. Nonsuicidal Musculoskeletal: No joint swelling or deformity. Normal range of motion. - Labs CBC & Chem 7: 08/24/17 08:16 08/25/17 06:56 Labs: Abnormal Lab Results - Last 24 Hours (Table) 08/24/17 08/24/17 Range/Units 08:16 08:16 RBC 4.09 L (4.30-5.90) m/uL Hgb 10.2 L (13.0-17.5) gm/dL Hct 32.9 L (39.0-53.0) % MCH 24.9 L (25.0-35.0) pg RDW 21.4 H (11.5-15.5) % Plt Count 588 H (150-450) k/uL Lymphocytes # (Manual) 0.95 L (1.0-4.8) k/uL Monocytes # (Manual) 1.58 H (0-1.0) k/uL Metamyelocytes # (Man) 0.16 H (0) k/uL Myelocytes # (Manual) 0.16 H (0) k/uL Nucleated RBCs 1 H (0-0) /100 WBC Glucose 112 H (74-99) mg/dL Alkaline Phosphatase 134 H (38-126) U/L Total Protein 5.6 L (6.3-8.2) g/dL Albumin 2.9 L (3.5-5.0) g/dL Microbiology - Last 24 Hours (Table) 08/20/17 19:39 Blood Culture - Preliminary Blood No Growth after 72 hours 08/18/17 16:26 Blood Culture - Preliminary Blood No Growth after 120 hours Assessment and Plan Assessment: Fever unclear etiology. Suspected sepsis with possible cholangitis but less likely Fluid overload with CT findings of groundglass opacity in the upper lobes of lung Lactic acidosis 2.3 on admission. Normalized now Stage IV pancreatic cancer. On chemotherapy and follow-up History of 3 stents to bradycardia and multiple ERCP Pancytopenia with history of recent chemotherapy 1 week prior to admission Hypothyroidism History of testicular cancer Plan: Patient was initially started on Zosyn. Changed to meropenem for possible pneumonia. Patient is being continued on IV Lasix 40 mg every 8 hourly. ID and pulmonary is following. Continue with GI and DVT prophylaxis. Further recommendations based on the clinical course. Prognosis is guarded with multiple medical problems and cold condition including pancreatic cancer. CODE STATUS is DO NOT RESUSCITATE/DO NOT INTUBATE Discussed with his at bedside in detail. Time with Patient: Greater than 30
--- NOTE | 2017-08-25 23:23 | P.PN ---
Subjective Progress Note Date: 08/25/17 Principal diagnosis: Sepsis This this is a pleasant 67 years old male with past medical history of pancreatic cancer diagnosed in February 2015, testicular cancer, hypothyroidism. Patient is status post ERCP and he had weakness in his biliary tract. Patient is currently on chemotherapy. He presents last night because of fever 103.0. Patient was admitted twice with similar problem. In the last few months. At that time suspected to have sepsis secondary to biliary infection and was treated with antibiotics. Patient denies abdominal pain. No change in bowel habits. No urinary complaints. No nausea or vomiting. No chest pain or dyspnea. No headache or focal neurological complaints has no weakness. No back pain. No abnormal sensation. No pleural effusions or difficulty swallowing. Patient has Port-A-Cath in the left upper chest and he got chemotherapy last week Patient was admitted for IV antibiotic treatment; his pancytopenia remained stable; blood cultures are negative so far Hematology started patient on Neupogen; patient did have episode of low-grade temperature around 100; repeat chest x-ray shows elevated left hemidiaphragm and possible effusion versus infiltrate in left lung; patient is for CT of the chest on Wednesday08/21/2017; patient continues to have spikes of low-grade temperature; complain of significant generalized edema; patient has been evaluated again by ID; IV antibiotic therapy has been escalated from Zosyn to IV Merrem; patient received 1 dose of IV Lasix and has been diuresing well since then; claims chest congestion feels somewhat better; ID recommending possible computed tomography scan of the abdomen if patient continues to spike fevers a change in antibiotics ; all of the above was discussed with patient and family and they are agreeable 08/23/2017; Patient is seen and evaluated in the room at bedside; patient's is present in the room and relates patient had a rough night with some trouble breathing which improved with oxygen; relates patient has been anxious and frustrated due to prolonged hospital course; patient continues to have low- grade temperature and has been recommended further workup with CT of the chest abdomen and pelvis by ID; further recommendations after testing is done. 08/24/2017 Patient says that his breathing status is improved. Patient is being transferred with IV Lasix 40 mg every 8 hourly. Patient is still having low- grade fevers. Cultures have been negative so far. Current antibiotics no cough meropenem. No nausea vomiting or abdominal pain. Diarrhea improved. C. diff negative. CT chest and abdomen/pelvis showed intermediate areas of groundglass opacity in the upper lobes of the lung, consider drug toxicity, hypersensitivity pneumonitis, edema. Interval progression of carcinoma. Interval development of ascites. Overall patient is clinically improving. Pulmonary is following. Currently on 2 L nasal cannula. 08/25/2017 Patient is being diuresed well with IV Lasix. Shortness of breath is much improved. Currently patient is saturating well on room air. Otherwise liver enzymes are not elevated. Bilirubin within normal limits. T-max was 100.3 last night. Currently patient is afebrile. Tolerating oral diet. No complaints of chest pain. No headache or dizziness or lightheadedness. Overall patient is clinically improving. Discussed with his at bedside in detail and all her questions were answered. All other review of systems negative except the above Current medications reviewed. Objective - Vital Signs Vital signs: Vital Signs Temp 98.8 F 08/25/17 14:42 Pulse 114 H 08/25/17 20:58 Resp 16 08/25/17 14:42 BP 115/74 08/25/17 14:42 Pulse Ox 94 L 08/25/17 14:42 Intake & Output 08/25/17 08/25/17 08/26/17 06:59 18:59 06:59 Intake Total 1060 240 Balance 1060 240 Weight 86.183 kg Intake: Intake, IV Titration 240 Amount Lactated Ringers 1,000 ml 140 @ 50 mls/hr IV .Q20H [facility] Rx#:[id number] Meropenem 1 gm In Sodium 100 Chloride 0.9% 100 ml @ 100 mls/hr IVPB Q8H [facility] Rx#:[id number] Oral 1060 Other: Voiding Method Toilet # Voids 2 - Exam PHYSICAL EXAMINATION: Patient is lying in the bed comfortably, no acute distress, awake alert and oriented.. HEENT: Normocephalic. Neck is supple. Pupils reactive. Nostrils clear. Oral cavity is moist. Ears reveal no drainage. Neck reveals no JVD, carotid bruits, or thyromegaly. CHEST EXAMINATION: Trachea is central. Symmetrical expansion. Bibasilar crackles positive. No wheezing or rhonchi. CARDIAC: Normal S1, S2 with no gallops. No murmurs ABDOMEN: Soft. Bowel sounds normal. No organomegaly. No abdominal bruits. Extremities: reveal no edema. No clubbing or cyanosis Neurologically awake, alert, oriented x3 with well-coordinated movements. No focal deficits noted Skin: No rash or skin lesions. Psychiatric: Coperative. Nonsuicidal Musculoskeletal: No joint swelling or deformity. Normal range of motion. - Labs CBC & Chem 7: 08/24/17 08:16 08/25/17 06:56 Labs: Abnormal Lab Results - Last 24 Hours (Table) 08/25/17 Range/Units 06:56 Sodium 136 L (137-145) mmol/L Chloride 96 L (98-107) mmol/L Carbon Dioxide 31 H (22-30) mmol/L Creatinine 0.58 L (0.66-1.25) mg/dL Total Protein 5.3 L (6.3-8.2) g/dL Albumin 2.7 L (3.5-5.0) g/dL Microbiology - Last 24 Hours (Table) 08/20/17 19:39 Blood Culture - Preliminary Blood No Growth after 120 hours 08/18/17 16:26 Blood Culture - Final Blood No Growth after 144 hours Assessment and Plan Assessment: Fever unclear etiology. Suspected sepsis with possible cholangitis but less likely. Blood cultures and urine cultures have been negative so far Fluid overload with CT findings of groundglass opacity in the upper lobes of lung Lactic acidosis 2.3 on admission. Normalized now Stage IV pancreatic cancer. On chemotherapy and follow-up History of 3 stents to bradycardia and multiple ERCP Pancytopenia with history of recent chemotherapy 1 week prior to admission Hypothyroidism History of testicular cancer Plan: Patient was initially started on Zosyn. Changed to meropenem for possible pneumonia. Patient is being continued on IV Lasix 40 mg every 8 hourly. Repeat chest x-ray tomorrow. ID and pulmonary is following. Continue with GI and DVT prophylaxis. Further recommendations based on the clinical course. Prognosis is guarded with multiple medical problems and cold condition including pancreatic cancer. CODE STATUS is DO NOT RESUSCITATE/DO NOT INTUBATE Discussed with his at bedside in detail. Time with Patient: Greater than 30
[2017-08-25] MEDS: NYSTATIN 100,000 UNIT/ML SUSP 500,000 UNIT/5 ML CUP PO PRN (23:41)
[2017-08-26] MEDS: MEROPENEM 1 GM in SODIUM CHLORIDE 0.9% 100 ML IVPB SCH ×3 (03:59→19:29)
[2017-08-26] MEDS: LEVOTHYROXINE 100 MCG TAB PO SCH (06:09)
[2017-08-26] MEDS: ONDANSETRON 4 MG/2 ML VIAL IVP PRN (06:11)
[2017-08-26 06:52] LABS: Anisocytosis Moderate; Basophils # (A) 0.1 k/uL (0-0.2); Basophils % (A) 1 %; Eosinophils # (A) 0.2 k/uL (0-0.7); Eosinophils % (A) 2 %; HCT 33.1 % (39.0-53.0); HGB 10.3 gm/dL (13.0-17.5); Hypochromasia Moderate; Lymphocytes # (A) 0.7 k/uL (1.0-4.8); Lymphocytes % (A) 7 %; MCH 24.9 pg (25.0-35.0); MCHC 31.2 g/dL (31.0-37.0); Mean Platelet Volume 6.3; Microcytosis Slight; Monocytes # (A) 1.2 k/uL (0-1.0); Monocytes % (A) 12 %; Neutrophils # (A) 7.9 k/uL (1.3-7.7); Neutrophils % (A) 75 %; Platelet Count 591 k/uL (150-450); Poikilocytosis Slight; RBC 4.14 m/uL (4.30-5.90); RDW 21.1 % (11.5-15.5); WBC 10.5 k/uL (3.8-10.6)
[2017-08-26 07:13] LABS: ALT 32 U/L (21-72); AST 41 U/L (17-59); Albumin 2.8 g/dL (3.5-5.0); Alkaline Phosphatase 122 U/L (38-126); Anion Gap 8 mmol/L; Blood Urea Nitrogen 14 mg/dL (9-20); Calcium 8.7 mg/dL (8.4-10.2); Carbon Dioxide 34 mmol/L (22-30); Chloride 95 mmol/L (98-107); Glucose 95 mg/dL (74-99); Potassium 3.7 mmol/L (3.5-5.1); Sodium 137 mmol/L (137-145); Total Bilirubin 0.5 mg/dL (0.2-1.3); Total Protein 5.5 g/dL (6.3-8.2)
--- NOTE | 2017-08-26 08:05 | XR ---
EXAMINATION TYPE: XR chest 1V portable DATE OF EXAM: 08/26/2017 COMPARISON: 08/18/2017 HISTORY: Congestive heart failure. Cough. TECHNIQUE: Single frontal view of the chest is obtained. FINDINGS: There is a layering trace left pleural effusion with a meniscus sign at the costophrenic a ngle. Patchy left basilar airspace disease likely represents atelectasis. Left hemidiaphragm elevatio n is chronic. Left-sided Mediport is unchanged in position. Postsurgical changes of the upper abdomen are redemonstrated. No new focal consolidation, right-sided pleural effusion, pulmonary vascular con gestion or pneumothorax. Osseous structures are intact with moderate degenerative changes of the thor acic spine. IMPRESSION: Persistent trace layering pleural effusion and probable left minimal basilar atelectasis . Overall unchanged findings from the prior exam.
[2017-08-26] MEDS: FUROSEMIDE 10 MG/ML 4 ML VIAL IV SCH (08:10)
[2017-08-26] MEDS: PANTOPRAZOLE 40 MG TABLET PO SCH (08:10)
[2017-08-26] MEDS: FLUTICASONE 50MCG/SPRAY NASAL 16GM EA NOSTRIL SCH (08:11)
[2017-08-26] MEDS: guaiFENesin 600 MG TABLET.ER PO SCH ×2 (08:11→20:42)
[2017-08-26] MEDS: URSODIOL 300 MG CAP PO SCH ×2 (08:11→20:42)
[2017-08-26] MEDS: DOCUSATE 100 MG CAP PO SCH ×2 (08:13→20:42)
[2017-08-26] MEDS: HEPARIN SODIUM,PORCINE 5,000 UNIT/ML 1 ML VIAL SQ SCH ×2 (08:13→20:42)
[2017-08-26] MEDS: NYSTATIN 100,000 UNIT/ML SUSP 500,000 UNIT/5 ML CUP PO PRN (08:19)
[2017-08-26] MEDS: IPRATROPIUM-ALBUTEROL 3 ML NEB INHALATION SCH ×3 (08:56→18:54)
--- NOTE | 2017-08-26 10:15 | P.PN ---
Subjective Progress Note Date: 08/26/17 Principal diagnosis: Fever of unclear etiology. Patient seen again today 08/25/2017 in follow-up on the oncology unit. He is awake and alert in no acute distress. He is maintaining good O2 saturations in the 90s on 2 L/m per nasal cannula. His been voiding quite a bit. He remains on Lasix 40 mg IV push every 8 hours. Blood cultures ever reveal no growth thus far. He is currently afebrile. He is currently on meropenem. The patient is seen again today 08/26/2017 in follow-up for his oncology unit. He is currently awake and alert in no acute distress. He's been up ambulating in his room. His chest x-ray continues to show some mild fluid volume overload. Improving. Blood cultures reveal no growth. White count 10.5. Hemoglobin 10.3. Creatinine 0.61. C. diff toxin screen negative. He remains afebrile. Maintaining O2 saturations in the 90s on room air. Slightly tachycardic. Objective - Vital Signs Vital signs: Vital Signs Temp 98.9 F 08/26/17 07:38 Pulse 120 H 08/26/17 09:06 Resp 16 08/26/17 07:38 BP 115/81 08/26/17 07:38 Pulse Ox 95 08/26/17 08:58 Intake & Output 08/25/17 08/26/17 08/26/17 18:59 06:59 18:59 Intake Total 240 400 Balance 240 400 Intake: IV 400 Lactated Ringers 1,000 ml 200 @ 50 mls/hr IV .Q20H [facility] Rx#:[id number] Meropenem 1 gm In Sodium 200 Chloride 0.9% 100 ml @ 100 mls/hr IVPB Q8H [facility] Rx#:[id number] Intake, IV Titration 240 Amount Lactated Ringers 1,000 ml 140 @ 50 mls/hr IV .Q20H [facility] Rx#:[id number] Meropenem 1 gm In Sodium 100 Chloride 0.9% 100 ml @ 100 mls/hr IVPB Q8H [facility] Rx#:[id number] Other: Voiding Method Toilet - Exam No acute distress, oriented 3. Nasal O2 in place. HEENT examination is grossly unremarkable. Mucous membranes are moist. No oral lesions. Neck supple. Full range of motion. No adenopathy thyromegaly or neck vein distention. Cardiovascular examination reveals regular rhythm rate. S1-S2 normal. No S3 or S4. No discernible murmur noted. Lungs reveal mostly clear breath sounds. Her sounds are equal bilaterally. Minimal fine crackles are noted. No wheezes or rhonchi. Abdomen soft bowel sounds are heard. No masses or tenderness. Mild abdominal distention. Extremities are intact. Mild edema noted in the hands and also on the forearms legs ankles and feet. It is 1-2+ and slightly pitting Skin is without rash or lesion. Neurologic examination is brief but nonfocal. - Labs CBC & Chem 7: 08/26/17 06:11 08/26/17 06:11 Labs: Abnormal Lab Results - Last 24 Hours (Table) 08/26/17 08/26/17 Range/Units 06:11 06:11 RBC 4.14 L (4.30-5.90) m/uL Hgb 10.3 L (13.0-17.5) gm/dL Hct 33.1 L (39.0-53.0) % MCH 24.9 L (25.0-35.0) pg RDW 21.1 H (11.5-15.5) % Plt Count 591 H (150-450) k/uL Neutrophils # 7.9 H (1.3-7.7) k/uL Lymphocytes # 0.7 L (1.0-4.8) k/uL Monocytes # 1.2 H (0-1.0) k/uL Chloride 95 L (98-107) mmol/L Carbon Dioxide 34 H (22-30) mmol/L Creatinine 0.61 L (0.66-1.25) mg/dL Total Protein 5.5 L (6.3-8.2) g/dL Albumin 2.8 L (3.5-5.0) g/dL Microbiology - Last 24 Hours (Table) 08/20/17 19:39 Blood Culture - Preliminary Blood No Growth after 120 hours Assessment and Plan Assessment: Assessment Fever, of unclear etiology, currently being evaluated by infectious disease and other specialist. Possible low-grade sepsis. Doubt pneumonia, suspect fluid overload given the CT findings of a groundglass/ mosaic pattern. Pancreatic cancer Biliary tract obstruction, status post stent placement History of pancytopenia History of hypothyroidism History of testicular carcinoma Plan: The patient was seen and evaluated by Dr. Nugent. He is stable for discharge from the pulmonary standpoint. Chest x-ray reviewed. We will discontinue the IV Lasix and switch him to 40 mg by mouth daily. Creatinine is stable. We'll continue to follow. I, the cosigning physician, performed a history & physical examination of the patient. Lungs sounds with faint crackles in the posterior bases. Maintaining good O2 saturations in the 90s on room air. I discussed the assessment and plan of care with my nurse practitioner, Liz Reyes. I attest to the above note as dictated by her.
[2017-08-26] MEDS: LACTATED RINGERS 1,000 ML IV SCH (16:38)
--- NOTE | 2017-08-26 17:42 | P.PN ---
Subjective Progress Note Date: 08/26/17 The patient's respiratory status has improved significantly. Fever pattern has also improved. He denies any chills or shakes. No leg swelling at this time. No history of any nausea or vomiting. Objective - Vital Signs Vital signs: Vital Signs Temp 99.4 F 08/26/17 14:24 Pulse 119 H 08/26/17 14:24 Resp 16 08/26/17 14:24 BP 148/81 08/26/17 14:24 Pulse Ox 93 L 08/26/17 14:24 Intake & Output 08/25/17 08/26/17 08/26/17 18:59 06:59 18:59 Intake Total 240 400 Balance 240 400 Weight 86.183 kg Intake: IV 400 Lactated Ringers 1,000 ml 200 @ 20 mls/hr IV .Q24H MAGDY Rx#:[id number] Meropenem 1 gm In Sodium 200 Chloride 0.9% 100 ml @ 100 mls/hr IVPB Q8H MAGDY Rx#:[id number] Intake, IV Titration 240 Amount Lactated Ringers 1,000 ml 140 @ 20 mls/hr IV .Q24H MAGDY Rx#:[id number] Meropenem 1 gm In Sodium 100 Chloride 0.9% 100 ml @ 100 mls/hr IVPB Q8H MAGDY Rx#:[id number] Other: Voiding Method Toilet Toilet # Voids 5 - Constitutional General appearance: Present: no acute distress - EENT Eyes: Present: EOMI ENT: Present: hearing grossly normal, normal oropharynx - Respiratory Respiratory: right: diminished - Cardiovascular Rhythm: regular Heart sounds: normal: S1, S2 - Gastrointestinal General gastrointestinal: Present: normal bowel sounds, soft - Integumentary Integumentary: Present: normal - Neurologic Neurologic: Present: CNII-XII intact - Musculoskeletal Musculoskeletal: Present: strength equal bilaterally - Psychiatric Psychiatric: Present: A&O x's 3, appropriate affect - Labs CBC & Chem 7: 08/26/17 06:11 08/26/17 06:11 Labs: Abnormal Lab Results - Last 24 Hours (Table) 08/26/17 08/26/17 Range/Units 06:11 06:11 RBC 4.14 L (4.30-5.90) m/uL Hgb 10.3 L (13.0-17.5) gm/dL Hct 33.1 L (39.0-53.0) % MCH 24.9 L (25.0-35.0) pg RDW 21.1 H (11.5-15.5) % Plt Count 591 H (150-450) k/uL Neutrophils # 7.9 H (1.3-7.7) k/uL Lymphocytes # 0.7 L (1.0-4.8) k/uL Monocytes # 1.2 H (0-1.0) k/uL Chloride 95 L (98-107) mmol/L Carbon Dioxide 34 H (22-30) mmol/L Creatinine 0.61 L (0.66-1.25) mg/dL Total Protein 5.5 L (6.3-8.2) g/dL Albumin 2.8 L (3.5-5.0) g/dL Microbiology - Last 24 Hours (Table) 08/20/17 19:39 Blood Culture - Preliminary Blood No Growth after 120 hours Assessment and Plan (1) Fever Narrative/Plan: the patient's fever pattern is much improvedsince 08/23/17 he has only had one documented overt fever of 101. Cultures have remained negative. He continues on antibiotics. - The the current picture does not appear to be compatible with any persistent cholangitis. He could be related to a degree of tumor fever, as his CAT scans have shown progression. Defer to the admitting service and ID, regarding antibiotic management. Current Visit: Yes Status: Acute Priority: High Code(s): R50.9 - FEVER, UNSPECIFIED SNOMED Code(s): 570407393 (2) Cholangitis, recurrent Current Visit: No Status: Acute Code(s): K83.0 - CHOLANGITIS SNOMED Code(s ): 56064589 (3) Pancreatic cancer Narrative/Plan: The results of the CT scan and medications were discussed in detail with him and his . They were advised that there appears to be progression, compared to his previous scan done in 06/09. Therefore this is concerning for his current regimen not being effective. CA 199 will be ordered. The patient is to follow-up with Dr. Dominguez in the outpatient setting next week. Further treatment plan, in result of the CT scan findings will be discussed with him at that time. Current Visit: No Status: Chronic Priority: Medium Code(s): C25.9 - MALIGNANT NEOPLASM OF PANCREAS, UNSPECIFIED SNOMED Code(s): 790343920 (4) Pancytopenia due to antineoplastic chemotherapy Narrative/Plan: WBC has normalized . platelet count is increased, , Most likely reactive due to post chemotherapy recovery and acute illness Current Visit: Yes Status: Acute Code(s): D61.810 - ANTINEOPLASTIC CHEMOTHERAPY INDUCED PANCYTOPENIA; T45.1X5A - ADVERSE EFFECT OF ANTINEOPLASTIC AND IMMUNOSUP DRUGS, INIT SNOMED Code(s): 236707141493935 Plan: The patient's acute respiratory failure appears to have been due to fluid overload. He has responded well to diuresis with chest x-ray showing fairly rapid improvement in bilateral lung infiltrates. It was discussed with the patient and his who was on the phone, that the rapid improvement with diuresis indicates fluid overload
[2017-08-26] MEDS: NYSTATIN 100,000 UNIT/ML SUSP 500,000 UNIT/5 ML CUP PO SCH (19:20)
--- NOTE | 2017-08-26 22:32 | P.PN ---
Subjective Progress Note Date: 08/26/17 Principal diagnosis: Sepsis This this is a pleasant 67 years old male with past medical history of pancreatic cancer diagnosed in February 2015, testicular cancer, hypothyroidism. Patient is status post ERCP and he had weakness in his biliary tract. Patient is currently on chemotherapy. He presents last night because of fever 103.0. Patient was admitted twice with similar problem. In the last few months. At that time suspected to have sepsis secondary to biliary infection and was treated with antibiotics. Patient denies abdominal pain. No change in bowel habits. No urinary complaints. No nausea or vomiting. No chest pain or dyspnea. No headache or focal neurological complaints has no weakness. No back pain. No abnormal sensation. No pleural effusions or difficulty swallowing. Patient has Port-A-Cath in the left upper chest and he got chemotherapy last week Patient was admitted for IV antibiotic treatment; his pancytopenia remained stable; blood cultures are negative so far Hematology started patient on Neupogen; patient did have episode of low-grade temperature around 100; repeat chest x-ray shows elevated left hemidiaphragm and possible effusion versus infiltrate in left lung; patient is for CT of the chest on Wednesday08/21/2017; patient continues to have spikes of low-grade temperature; complain of significant generalized edema; patient has been evaluated again by ID; IV antibiotic therapy has been escalated from Zosyn to IV Merrem; patient received 1 dose of IV Lasix and has been diuresing well since then; claims chest congestion feels somewhat better; ID recommending possible computed tomography scan of the abdomen if patient continues to spike fevers a change in antibiotics ; all of the above was discussed with patient and family and they are agreeable 08/23/2017; Patient is seen and evaluated in the room at bedside; patient's is present in the room and relates patient had a rough night with some trouble breathing which improved with oxygen; relates patient has been anxious and frustrated due to prolonged hospital course; patient continues to have low- grade temperature and has been recommended further workup with CT of the chest abdomen and pelvis by ID; further recommendations after testing is done. 08/24/2017 Patient says that his breathing status is improved. Patient is being transferred with IV Lasix 40 mg every 8 hourly. Patient is still having low- grade fevers. Cultures have been negative so far. Current antibiotics no cough meropenem. No nausea vomiting or abdominal pain. Diarrhea improved. C. diff negative. CT chest and abdomen/pelvis showed intermediate areas of groundglass opacity in the upper lobes of the lung, consider drug toxicity, hypersensitivity pneumonitis, edema. Interval progression of carcinoma. Interval development of ascites. Overall patient is clinically improving. Pulmonary is following. Currently on 2 L nasal cannula. 08/25/2017 Patient is being diuresed well with IV Lasix. Shortness of breath is much improved. Currently patient is saturating well on room air. Otherwise liver enzymes are not elevated. Bilirubin within normal limits. T-max was 100.3 last night. Currently patient is afebrile. Tolerating oral diet. No complaints of chest pain. No headache or dizziness or lightheadedness. Overall patient is clinically improving. 08/26/2017 Patient is awake alert and more oriented now. Able to ambulate without shortness of breath. Patient is not using oxygen nausea cannula while on bed. Presents status is much improved now. IV Lasix has been changed to 40 mg daily orally. Cultures have been negative so far. C. diff toxin is also negative. As per his and patient is feeling weak and tired. Patient is also tachycardic. T-max 99.4 during last 24 hours. Pulmonary and oncology is following. Patient is being continued on meropenem and awaiting final ID recommendations. Discussed with his at bedside in detail and all her questions were answered. All other review of systems negative except the above Current medications reviewed. Objective - Vital Signs Vital signs: Vital Signs Temp 99.4 F 08/26/17 14:24 Pulse 108 H 08/26/17 19:06 Resp 16 08/26/17 14:24 BP 148/81 08/26/17 14:24 Pulse Ox 93 L 08/26/17 14:24 Intake & Output 08/26/17 08/26/17 08/27/17 06:59 18:59 06:59 Intake Total 400 Balance 400 Weight 86.183 kg Intake: IV 400 Lactated Ringers 1,000 ml 200 @ 20 mls/hr IV .Q24H [facility]DY Rx#:[id number] Meropenem 1 gm In Sodium 200 Chloride 0.9% 100 ml @ 100 mls/hr IVPB Q8H [facility] Rx#:[id number] Other: Voiding Method Toilet Toilet # Voids 5 - Exam PHYSICAL EXAMINATION: Patient is lying in the bed comfortably, no acute distress, awake alert and oriented.. HEENT: Normocephalic. Neck is supple. Pupils reactive. Nostrils clear. Oral cavity is moist. Ears reveal no drainage. Neck reveals no JVD, carotid bruits, or thyromegaly. CHEST EXAMINATION: Trachea is central. Symmetrical expansion. Right basilar crackles positive but improved. No wheezing or rhonchi. CARDIAC: Normal S1, S2 with no gallops. No murmurs ABDOMEN: Soft. Bowel sounds normal. No organomegaly. No abdominal bruits. Extremities: reveal no edema. No clubbing or cyanosis Neurologically awake, alert, oriented x3 with well-coordinated movements. No focal deficits noted Skin: No rash or skin lesions. Psychiatric: Coperative. Nonsuicidal Musculoskeletal: No joint swelling or deformity. Normal range of motion. - Labs CBC & Chem 7: 08/26/17 06:11 08/26/17 06:11 Labs: Abnormal Lab Results - Last 24 Hours (Table) 08/26/17 08/26/17 Range/Units 06:11 06:11 RBC 4.14 L (4.30-5.90) m/uL Hgb 10.3 L (13.0-17.5) gm/dL Hct 33.1 L (39.0-53.0) % MCH 24.9 L (25.0-35.0) pg RDW 21.1 H (11.5-15.5) % Plt Count 591 H (150-450) k/uL Neutrophils # 7.9 H (1.3-7.7) k/uL Lymphocytes # 0.7 L (1.0-4.8) k/uL Monocytes # 1.2 H (0-1.0) k/uL Chloride 95 L (98-107) mmol/L Carbon Dioxide 34 H (22-30) mmol/L Creatinine 0.61 L (0.66-1.25) mg/dL Total Protein 5.5 L (6.3-8.2) g/dL Albumin 2.8 L (3.5-5.0) g/dL Microbiology - Last 24 Hours (Table) 08/20/17 19:39 Blood Culture - Final Blood No Growth after 144 hours Assessment and Plan Assessment: Fever unclear etiology. Suspected sepsis with possible cholangitis but less likely. Blood cultures and urine cultures have been negative so far. C. diff negative. Fluid overload with CT findings of groundglass opacity in the upper lobes of lung. Improved with IV diuresis. Lactic acidosis 2.3 on admission. Normalized now Stage IV pancreatic cancer. On chemotherapy and oncology follow-up History of 3 stents to biliary ducts and multiple ERCP Pancytopenia with history of recent chemotherapy 1 week prior to admission Hypothyroidism History of testicular cancer Plan: Patient was initially started on Zosyn. Changed to meropenem for possible pneumonia as per ID.. Patient was continued on IV Lasix 40 mg every 8 hourly. Changed to by mouth. ID and pulmonary is following. Continue with GI and DVT prophylaxis. Further recommendations based on the clinical course. Prognosis is guarded with multiple medical problems and cold condition including pancreatic cancer. CODE STATUS is DO NOT RESUSCITATE/DO NOT INTUBATE Discussed with his at bedside in detail. Time with Patient: Greater than 30
[2017-08-27] MEDS: NYSTATIN 100,000 UNIT/ML SUSP 500,000 UNIT/5 ML CUP PO SCH ×3 (01:17→13:33)
[2017-08-27] MEDS: MEROPENEM 1 GM in SODIUM CHLORIDE 0.9% 100 ML IVPB SCH ×2 (03:15→13:32)
--- NOTE | 2017-08-27 06:05 | CONS ---
CONSULTATION DATE OF SERVICE: 08/26/2017. CONSULTATION/PROGRESS NOTE: REASON FOR FOLLOW UP: Fever, antibiotic review. HISTORY OF PRESENT ILLNESS: The patient is a 67-year-old male who has been admitted to the hospital on 08/15/2017 with the patient presenting with fever. Patient who does have a history of history of pancreatic cancer diagnosed back in July of 2015. The patient did have multiple episodes of sepsis mostly related to the biliary source with obstructed stent. The patient currently has been on chemotherapy and has been presenting to the ER with persistent fever of 1 week duration. Fever has been as high as 103 degrees Fahrenheit. The patient also noted to have elevated . With these symptoms, the patient has been managed by the oncology as well as Infectious Disease and has been seen by Dr. Spivey. The patient has multiple cultures done 08/15/2017, 08/16/2017 and 08/18 as well as 08/20 and all of them has been negative. The patient's antibiotic has been transitioned to meropenem 1 g q.8 hours as of 08/20/2017. The patient who has been spiking a fever on a daily basis since the -, however, as of 08/20 the patient did have a fever on 101 on 08/24 and no fever since then. The patient also have a workup including CT of the chest, abdomen, and pelvis which did show bilateral areas of ground-glass opacities. Did have evidence of a large mass in the posterior right lobe of the liver which seems to have increase in size from 5.9 into 7.8 cm with some with some component of possible necrosis. I was asked to re-evaluate the patient in absence of Dr. Spivey per request of the as well as the attending physician. The patient, at the time of my evaluation this afternoon, has been afebrile for the last 48 hours. The patient denies having any headache. Denies having any chest pain. No shortness of breath. Very minimal cough. Denies having abdominal pain. His oral intake is poor though. Feeling slight nausea but no vomiting and did have some diarrhea though stool for C diff culture which came back negative. REVIEW OF SYSTEMS: The positive points have been mentioned in HPI. Rest of systems has been negative. PAST MEDICAL HISTORY: Has been reviewed. PAST SURGICAL HISTORY: Reviewed. MEDICATIONS: Medications reviewed. EXAMINATION: Blood pressure is 154/72 with a pulse of 83, temperature of 99, T max 100.3. He is 93% on room air. General description is an elderly male lying in bed in no distress. No tachypnea or accessory muscles of respiration use. HEENT: Shows slight pallor. No scleral icterus. Oral mucosa membranes are moist with minimal thrush. NECK: Trachea central. No thyromegaly. LUNGS unlabored breathing, clear to auscultation anteriorly. No wheeze or crackles. HEART: S1, S2 regular rate and rhythm. ABDOMEN: Soft, mildly distended. No guarding or rigidity. No organomegaly. EXTREMITIES: No edema of the feet. Skin examination: No rash or mass palpable. NEUROLOGICAL: Patient is awake, alert, oriented times three. Mood and affect normal. LABS: Hemoglobin is 10.8, white count 10.5 with a BUN of 14, creatinine 0.61. Stool for C difficile has been negative. He had multiple cultures that have been negative. DIAGNOSTIC IMPRESSION AND PLAN: Patient admitted to the hospital with fever, source is likely multifactorial in this patient who was noticed to have progression of his metastatic pancreatic cancer with increase in size from METS to the liver and could be more likely a tumor fever in view of the patient being nontoxic. Did not have elevated white count and his culture has been negative. However underlying infectious etiology not entirely excluded as the patient's fever seemed to finally responded to the addition of meropenem on 08/20/2017. PLAN: We will recommend to keep the patient on meropenem that can be transitioned to Invanz 1 g daily for at least a week. As the patient has been insisting on going home, script has been written for the patient arranged will be able to go home to have the infusion done at the and patient to followup with Dr. Spivey within a week. has multiple questions, all of them have been answered to her satisfaction. The has been . Thank you for this consultation. MMODL / IJN: [id number] /
[2017-08-27] MEDS: LEVOTHYROXINE 100 MCG TAB PO SCH (06:12)
[2017-08-27] MEDS: IPRATROPIUM-ALBUTEROL 3 ML NEB INHALATION SCH ×2 (07:53→13:47)
[2017-08-27] MEDS: PANTOPRAZOLE 40 MG TABLET PO SCH (08:01)
[2017-08-27] MEDS: DOCUSATE 100 MG CAP PO SCH (08:01)
[2017-08-27] MEDS: guaiFENesin 600 MG TABLET.ER PO SCH (08:01)
[2017-08-27] MEDS: URSODIOL 300 MG CAP PO SCH (08:01)
[2017-08-27] MEDS: FLUTICASONE 50MCG/SPRAY NASAL 16GM EA NOSTRIL SCH (08:02)
[2017-08-27] MEDS: HEPARIN SODIUM,PORCINE 5,000 UNIT/ML 1 ML VIAL SQ SCH (08:02)
[2017-08-27 08:03] VITALS: RESP 16
[2017-08-27] MEDS ORDERED: FUROSEMIDE 40 MG TAB PO SCH (09:00)
--- NOTE | 2017-08-27 12:00 | P.PN ---
Subjective Progress Note Date: 08/27/17 Principal diagnosis: Fever of unclear etiology. Patient seen again today 08/25/2017 in follow-up on the oncology unit. He is awake and alert in no acute distress. He is maintaining good O2 saturations in the 90s on 2 L/m per nasal cannula. His been voiding quite a bit. He remains on Lasix 40 mg IV push every 8 hours. Blood cultures ever reveal no growth thus far. He is currently afebrile. He is currently on meropenem. The patient is seen again today 08/26/2017 in follow-up for his oncology unit. He is currently awake and alert in no acute distress. He's been up ambulating in his room. His chest x-ray continues to show some mild fluid volume overload. Improving. Blood cultures reveal no growth. White count 10.5. Hemoglobin 10.3. Creatinine 0.61. C. diff toxin screen negative. He remains afebrile. Maintaining O2 saturations in the 90s on room air. Slightly tachycardic. The patient is seen again today 08/27/2017 in follow-up on the oncology unit. He is improved today as compared to yesterday. Feeling quite a bit better. No shortness of breath, cough or congestion. He is maintaining good O2 saturations in the 90s on room air. Blood cultures reveal no growth. Objective - Vital Signs Vital signs: Vital Signs Temp 99 F 08/26/17 21:30 Pulse 108 H 08/27/17 08:09 Resp 16 08/27/17 08:00 BP 144/84 08/27/17 07:22 Pulse Ox 94 L 08/27/17 07:22 Intake & Output 08/26/17 08/27/17 08/27/17 18:59 06:59 18:59 Intake Total 240 Balance 240 Weight 86.183 kg Intake: Oral 240 Other: Voiding Method Toilet Toilet Toilet # Voids 5 1 - Exam No acute distress, oriented 3. Nasal O2 in place. HEENT examination is grossly unremarkable. Mucous membranes are moist. No oral lesions. Neck supple. Full range of motion. No adenopathy thyromegaly or neck vein distention. Cardiovascular examination reveals regular rhythm rate. S1-S2 normal. No S3 or S4. No discernible murmur noted. Lungs reveal mostly clear breath sounds. Her sounds are equal bilaterally. Minimal fine crackles are noted. No wheezes or rhonchi. Abdomen soft bowel sounds are heard. No masses or tenderness. Mild abdominal distention. Extremities are intact. Mild edema noted in the hands and also on the forearms legs ankles and feet. It is 1-2+ and slightly pitting Skin is without rash or lesion. Neurologic examination is brief but nonfocal. - Labs CBC & Chem 7: 08/26/17 06:11 08/26/17 06:11 Labs: Microbiology - Last 24 Hours (Table) 08/20/17 19:39 Blood Culture - Final Blood No Growth after 144 hours Assessment and Plan Assessment: Assessment Fever, of unclear etiology, currently being evaluated by infectious disease and other specialist. Possible low-grade sepsis. Doubt pneumonia, suspect fluid overload given the CT findings of a groundglass/ mosaic pattern. Pancreatic cancer Biliary tract obstruction, status post stent placement History of pancytopenia History of hypothyroidism History of testicular carcinoma Plan: The patient was seen and evaluated by Dr. Nugent. He is stable for discharge from the pulmonary standpoint. We will see the patient on as-needed basis. I, the cosigning physician, performed a history & physical examination of the patient. Lungs sounds with faint crackles in the posterior bases. Maintaining good O2 saturations in the 90s on room air. I discussed the assessment and plan of care with my nurse practitioner, Liz Reyes. I attest to the above note as dictated by her.
[2017-08-27] MEDS ORDERED: ERTAPENEM 1 GM in SODIUM CHLORIDE 0.9% 50 ML IVPB STA (14:02)
--- NOTE | 2017-08-27 14:47 | PN ---
PROGRESS NOTE DATE OF SERVICE: 08/27/2017 REASON FOR FOLLOWUP: Fever. INTERVAL HISTORY: The patient is afebrile for more than 48 hours. No he is overall feeling much better. The patient denies having any chest pain or shortness of breath. He did have very minimal cough, bringing up some clear sputum. The patient denies any abdominal pain. No nausea, vomiting, or any worsening diarrhea. PHYSICAL EXAMINATION: Blood pressure 144/84 with a pulse of 105, temperature 98, he is 94% on room . General description is an elderly male up in the bed in no distress. RESPIRATORY SYSTEM: Unlabored breathing with decreased breath sounds at the bases, no wheeze. HEART: S1, S2. Regular rate and rhythm. ABDOMEN: Soft, no tenderness. No guarding or ]rigidity. EXTREMITIES: No edema of the feet. LABS: No new labs have been obtained today. He has multiple cultures over the last week or two that have been negative. DIAGNOSTIC IMPRESSION AND PLAN: Patient with fever with question of possible tumor, fever versus a gram-negative infection in a patient who has responded to the meropenem. Culture has been negative. Antibiotic has been transitioned to Invanz 1 g daily for a week and with the patient can get at and to follow up with Dr. Spivey next week. All their questions and concerns were answered. MMODL / IJN: [id number] /
[2017-08-27 15:21] VITALS: BP 130/80; TEMP 99.6
[2017-08-27 15:50] VITALS: PULSE 98
[2017-08-27] MEDS: LACTATED RINGERS 1,000 ML IV SCH (15:53)
--- NOTE | 2017-08-28 23:35 | P.DS ---
Providers Date of admission: 08/15/17 23:27 Expected date of discharge: 08/27/17 Attending physician: Lizbeth Larkin Consults: 08/15/17 23:23 Consult Physician Routine Consulting Provider: Francisco Dominguez Consult Reason/Comments: known Do you want consulting provider notified?: Yes Consult Physician Urgent Consulting Provider: Patrick Spivey Consult Reason/Comments: id Do you want consulting provider notified?: Yes 08/23/17 13:29 Consult Physician Routine Consulting Provider: Bridger Nugent Consult Reason/Comments: Dyspnea/ pneumonitis Do you want consulting provider notified?: Yes Primary care physician: [facility] Course: Hospital course Fever unclear etiology. Suspected sepsis with possible cholangitis. Blood cultures and urine cultures have been negative so far. C. diff negative. Fluid overload with CT findings of groundglass opacity in the upper lobes of lung. Improved with IV diuresis. Lactic acidosis 2.3 on admission. Normalized now Stage IV pancreatic cancer. On chemotherapy and oncology follow-up History of 3 stents to biliary ducts and multiple ERCP Pancytopenia with history of recent chemotherapy 1 week prior to admission Hypothyroidism History of testicular cancer Hospital course This this is a pleasant 67 years old male with past medical history of pancreatic cancer diagnosed in February 2015, testicular cancer, hypothyroidism. Patient is status post ERCP and he had weakness in his biliary tract. Patient is currently on chemotherapy. He presents last night because of fever 103.0. Patient was admitted twice with similar problem. In the last few months. At that time suspected to have sepsis secondary to biliary infection and was treated with antibiotics. Patient denies abdominal pain. No change in bowel habits. No urinary complaints. No nausea or vomiting. No chest pain or dyspnea. No headache or focal neurological complaints has no weakness. No back pain. No abnormal sensation. No pleural effusions or difficulty swallowing. Patient has Port-A-Cath in the left upper chest and he got chemotherapy last week Patient was admitted for IV antibiotic treatment; his pancytopenia remained stable; blood cultures are negative so far Hematology started patient on Neupogen; patient did have episode of low-grade temperature around 100; repeat chest x-ray shows elevated left hemidiaphragm and possible effusion versus infiltrate in left lung; patient is for CT of the chest on Wednesday08/21/2017; patient continues to have spikes of low-grade temperature; complain of significant generalized edema; patient has been evaluated again by ID; IV antibiotic therapy has been escalated from Zosyn to IV Merrem; patient received 1 dose of IV Lasix and has been diuresing well since then; claims chest congestion feels somewhat better; ID recommending possible computed tomography scan of the abdomen if patient continues to spike fevers a change in antibiotics ; all of the above was discussed with patient and family and they are agreeable 08/23/2017; Patient is seen and evaluated in the room at bedside; patient's is present in the room and relates patient had a rough night with some trouble breathing which improved with oxygen; relates patient has been anxious and frustrated due to prolonged hospital course; patient continues to have low- grade temperature and has been recommended further workup with CT of the chest abdomen and pelvis by ID; further recommendations after testing is done. 08/24/2017 Patient says that his breathing status is improved. Patient is being transferred with IV Lasix 40 mg every 8 hourly. Patient is still having low- grade fevers. Cultures have been negative so far. Current antibiotics no cough meropenem. No nausea vomiting or abdominal pain. Diarrhea improved. C. diff negative. CT chest and abdomen/pelvis showed intermediate areas of groundglass opacity in the upper lobes of the lung, consider drug toxicity, hypersensitivity pneumonitis, edema. Interval progression of carcinoma. Interval development of ascites. Overall patient is clinically improving. Pulmonary is following. Currently on 2 L nasal cannula. 08/25/2017 Patient is being diuresed well with IV Lasix. Shortness of breath is much improved. Currently patient is saturating well on room air. Otherwise liver enzymes are not elevated. Bilirubin within normal limits. T-max was 100.3 last night. Currently patient is afebrile. Tolerating oral diet. No complaints of chest pain. No headache or dizziness or lightheadedness. Overall patient is clinically improving. 08/26/2017 Patient is awake alert and more oriented now. Able to ambulate without shortness of breath. Patient is not using oxygen nausea cannula while on bed. Presents status is much improved now. IV Lasix has been changed to 40 mg daily orally. Cultures have been negative so far. C. diff toxin is also negative. As per his and patient is feeling weak and tired. Patient is also tachycardic. T-max 99.4 during last 24 hours. Pulmonary and oncology is following. Patient is being continued on meropenem and awaiting final ID recommendations. 08/27/2017 Breathing status is much improved and patient is able to saturate well on room air. Cultures have been negative. Patient will be continued on oral Lasix 40 mg daily and recommended to follow with primary care physician for repeat lab workup in 1-3 days. Patient is to follow with oncology and otherwise patient is stable to be discharged home. Patient will be continued on antibiotics in the form of Invanz as per ID recommendations. Plan: Patient was initially started on Zosyn. Changed to meropenem for possible pneumonia as per ID.. Patient was continued on IV Lasix 40 mg every 8 hourly. Changed to by mouth. Patient was seen by ID pulmonary and oncology. CODE STATUS is DO NOT RESUSCITATE/DO NOT INTUBATE Discussed with his at bedside in detail and all her questions were answered. PHYSICAL EXAMINATION: Patient is lying in the bed comfortably, no acute distress, awake alert and oriented.. HEENT: Normocephalic. Neck is supple. Pupils reactive. Nostrils clear. Oral cavity is moist. Ears reveal no drainage. Neck reveals no JVD, carotid bruits, or thyromegaly. CHEST EXAMINATION: Trachea is central. Symmetrical expansion. Right basilar minimal crackles. Lung lopez clear to auscultation and percussion. CARDIAC: Normal S1, S2 with no gallops. No murmurs ABDOMEN: Soft. Bowel sounds normal. No organomegaly. No abdominal bruits. Extremities: reveal no edema. No clubbing or cyanosis Neurologically awake, alert, oriented x3 with well-coordinated movements. No focal deficits noted Skin: No rash or skin lesions. Psychiatric: Coperative. Nonsuicidal Musculoskeletal: No joint swelling or deformity. Normal range of motion. Vital Signs (72 hours) 08/26/17 08/26/17 08/26/17 07:38 08:58 09:06 Temperature 98.9 F Pulse Rate 124 H 120 H Pulse Rate [ 105 H Pulse Oximetery ] Respiratory 16 Rate Blood Pressure 115/81 [Left Arm] O2 Sat by Pulse 92 L 95 Oximetry 08/26/17 08/26/17 08/26/17 13:48 13:58 14:24 Temperature 99.4 F Pulse Rate 116 H 110 H Pulse Rate [ 119 H Pulse Oximetery ] Respiratory 16 Rate Blood Pressure 148/81 [Left Arm] O2 Sat by Pulse 93 L Oximetry 08/26/17 08/26/17 08/26/17 18:54 19:06 21:30 Temperature 99 F Pulse Rate 104 H 108 H Pulse Rate [ 93 Pulse Oximetery ] Respiratory 18 Rate Blood Pressure 154/72 [Left Arm] O2 Sat by Pulse 93 L Oximetry 08/27/17 08/27/17 08/27/17 07:22 07:53 08:00 Temperature Pulse Rate 112 H Pulse Rate [ 101 H 98 Pulse Oximetery ] Respiratory 16 16 Rate Blood Pressure 144/84 [Left Arm] O2 Sat by Pulse 94 L Oximetry 08/27/17 08/27/17 08/27/17 08:09 09:28 14:32 Temperature 98.8 F 99.8 F H Pulse Rate 108 H Pulse Rate [ 110 H Pulse Oximetery ] Respiratory 16 Rate Blood Pressure 130/80 [Left Arm] O2 Sat by Pulse 93 L Oximetry 08/27/17 08/27/17 15:05 15:49 Temperature 99.6 F Pulse Rate Pulse Rate [ 98 Pulse Oximetery ] Respiratory 16 Rate Blood Pressure [Left Arm] O2 Sat by Pulse Oximetry Total time taken greater than 35 minutes including 18 minutes for counseling and coordination of care. Patient Condition at Discharge: Undetermined Plan - Discharge Summary New Discharge Prescriptions: New Furosemide [Lasix] 40 mg PO DAILY #30 tab Ertapenem [INVanz] 1 gm IVPB Q24H 6 Days #6 bag Continue Docusate [Colace] 100 mg PO BID Fluticasone Nasal [place] [Flonase Nasal [place]] 2 spray EA NOSTRIL DAILY Omeprazole [PriLOSEC] 20 mg PO DAILY Ursodiol 300 mg PO BID Levothyroxine Sodium [Synthroid] 100 mcg PO DAILY guaiFENesin [Mucinex] 600 mg PO BID Prochlorperazine [Compazine] 10 mg PO Q6H PRN PRN Reason: Nausea Nystatin 100,000 unit PO Q6H PRN PRN Reason: THRUSH Discharge Medication List Docusate [Colace] 100 mg PO BID 11/19/15 [History] Fluticasone Nasal [place] [Flonase Nasal [place]] 2 spray EA NOSTRIL DAILY 05/23/16 [History] Omeprazole [PriLOSEC] 20 mg PO DAILY 10/04/16 [History] Ursodiol 300 mg PO BID 03/16/17 [History] Levothyroxine Sodium [Synthroid] 100 mcg PO DAILY 06/01/17 [History] Prochlorperazine [Compazine] 10 mg PO Q6H PRN 06/18/17 [History] guaiFENesin [Mucinex] 600 mg PO BID 06/18/17 [History] Nystatin 100,000 unit PO Q6H PRN 08/16/17 [History] Ertapenem [INVanz] 1 gm IVPB Q24H 6 Days #6 bag 08/27/17 [Rx] Furosemide [Lasix] 40 mg PO DAILY #30 tab 08/27/17 [Rx] Follow up Appointment(s)/Referral(s): Shelby Styles MD [Primary Care Provider] - 1-2 days (Patient to call Dr. Styles's office Wednesday morning to schedule follow up appointment. The office is closed at time of discharge. ) Francisco Dominguez MD [STAFF PHYSICIAN] - 08/24/17 1:45 pm Patient Instructions/Handouts: Furosemide (By mouth), Ertapenem (By injection) , Fever in Adults (GEN), Pancytopenia (DC) Activity/Diet/Wound Care/Special Instructions: pt to make arrive at [facility] at 10:15 tomorrow for infusion. Discharge Disposition: HOME SELF-CARE
== END 2017-08-27 16:55 | disposition home or self-care (01) | DRG 871 ==
LOC: EC 18:11 → 5MS5E 23:27 → 5ONC 08-20 11:14
PROVIDERS: ADMIT Hospitalist; ATTEND Hospitalist
DX: A41.9 Sepsis, unspecified organism (principal); D61.810 Antineoplastic chemotherapy induced pancytopenia; J96.00 Acute respiratory failure, unspecified whether with hypoxia or hypercapnia; K83.1 Obstruction of bile duct; C25.9 Malignant neoplasm of pancreas, unspecified; C78.7 Secondary malignant neoplasm of liver and intrahepatic bile duct; C24.1 Malignant neoplasm of ampulla of Vater; K83.0 Cholangitis; R18.8 Other ascites; J98.11 Atelectasis; E87.2 Acidosis; E87.70 Fluid overload, unspecified; Z66 Do not resuscitate; E86.0 Dehydration; E03.9 Hypothyroidism, unspecified; T45.1X5A Adverse effect of antineoplastic and immunosuppressive drugs, initial encounter; Z79.890 Hormone replacement therapy; Z79.51 Long term (current) use of inhaled steroids; Z79.899 Other long term (current) drug therapy; Z85.47 Personal history of malignant neoplasm of testis; Z90.79 Acquired absence of other genital organ(s); Z96.89 Presence of other specified functional implants; Z88.5 Allergy status to narcotic agent; Z80.3 Family history of malignant neoplasm of breast; Z80.52 Family history of malignant neoplasm of bladder
CPT/HCPCS: 36415; 71045; 71046; 71260; 74177; 76705; 80053; 81003; 83010; 83605; 83615; 85025; 86301; 87040; 87086; 87493; 93005; 94640; 94760; 96360; 96361; 99285

== ENCOUNTER → 2017-09-02 | Outpatient (CLI) | payer OTHER, MEDICARE, BC ==
[2017-09-02 18:10] LABS: Anisocytosis Slight; Basophils # (A) 0.1 k/uL (0-0.2); Basophils % (A) 1 %; Eosinophils # (A) 0.1 k/uL (0-0.7); Eosinophils % (A) 1 %; HCT 31.5 % (39.0-53.0); HGB 9.8 gm/dL (13.0-17.5); Hypochromasia Moderate; Lymphocytes # (A) 0.8 k/uL (1.0-4.8); Lymphocytes % (A) 8 %; MCH 24.7 pg (25.0-35.0); MCV 79.6 fL (80.0-100.0); Mean Platelet Volume 6.5; Microcytosis Slight; Monocytes # (A) 1.3 k/uL (0-1.0); Monocytes % (A) 13 %; Neutrophils # (A) 7.5 k/uL (1.3-7.7); Neutrophils % (A) 76 %; Platelet Count 524 k/uL (150-450); RBC 3.96 m/uL (4.30-5.90)
[2017-09-02 18:35] LABS: ALT 37 U/L (21-72); AST 31 U/L (17-59); Albumin 2.9 g/dL (3.5-5.0); Alkaline Phosphatase 114 U/L (38-126); Anion Gap 8 mmol/L; Blood Urea Nitrogen 18 mg/dL (9-20); Calcium 8.7 mg/dL (8.4-10.2); Carbon Dioxide 25 mmol/L (22-30); Chloride 100 mmol/L (98-107); Glucose 96 mg/dL (74-99); Potassium 5.2 mmol/L (3.5-5.1); Sodium 133 mmol/L (137-145); Total Bilirubin 0.3 mg/dL (0.2-1.3); Total Protein 5.9 g/dL (6.3-8.2)
== END | disposition home or self-care (01) ==
LOC: LABWHC1 17:17
PROVIDERS: ATTEND Internal Medicine Infectious Disease
DX: R50.9 Fever, unspecified (principal)
CPT/HCPCS: 36415; 80053; 85025; 87040

== ENCOUNTER → 2017-11-01 | Outpatient (CLI) | payer OTHER, MEDICARE, BC ==
--- NOTE | 2017-11-01 15:23 | CT ---
EXAMINATION TYPE: CT ChestAbdPelvis w con DATE OF EXAM: 11/01/2017 COMPARISON: 08/23/2017 HISTORY: Biliary duct cancer CT DLP: 96.3 mGycm Automated exposure control for dose reduction was used. CONTRAST: 100 cc Isovue-300 FINDINGS: LUNGS: The lungs are grossly clear, there is no concerning parenchymal mass or nodule identified. T here is no pleural effusion or pneumothorax seen. The tracheobronchial tree is patent. Metallic clip is seen along the left lung base posteriorly. There is subsegmental linear changes suggestive of ate lectasis. MEDIASTINUM: There are no greater than 1 cm hilar or mediastinal lymph nodes. No pericardial effusi on is seen. Left jugular central venous catheter is present, port in the left pectoral region, dista l tip of the catheter is within the superior vena cava near the cavoatrial junction. There are bilate ral large pulmonary embolism involving the main pulmonary artery and its secondary and distal branche s. Referring physician immediately notified. LIVER/GB: LIVER/GB: Large mass in the posterior right lobe of the liver measures approximately 7.8 cm x 9.1 cm stable in size. There is pneumobilia present. PANCREAS: There is a stent coursing from the level of the small bowel through the pancreatic head int o the common bile duct, no peripancreatic fluid collection is evident. There are artifacts limiting e valuation. Pancreatic head fullness is stable. This may be related the patient's history of pancreati c neoplasm. Measures 3.6 x 3.5 cm. SPLEEN: No significant abnormality is seen. ADRENALS: No significant abnormality is seen. KIDNEYS: No significant abnormality is seen. BOWEL: No significant abnormality is seen. LYMPH NODES: Within the retroperitoneum there is a lymph node which previously measured 2.5 cm in marly rt axis and now measures 1.3 cm. Previously noted lymph node at the level the pancreatic body measure s 1.7 cm in short axis and previously measured 2.7 cm.. Liver, within the gastrohepatic ligament ther e are 2 small lymph nodes measuring a short axis of 9 mm. There appear to be stable relative the prev ious exam and are seen in the peripancreatic region. Slight not measuring 1 cm in short axis there ar e suspicious appearing. OSSEOUS STRUCTURES: Hypertrophic and degenerative change of the spine. OTHER: Numerous surgical clips are seen in the retroperitoneum. IMPRESSION: 1. There is massive bilateral pulmonary acute pulmonary embolism. Referring clinician immediately not ified by telephone and in the referring physician requested the patient return to the referring physi joel's office. 2. Stable biliary stent with 7.8 x 9.1 cm right lobe hepatic mass stable in appearance. 3. There is mild improvement in the size of the adenopathy involving the mesentery and retroperitoneu m relative to the previous exam.
== END | disposition home or self-care (01) ==
LOC: RADPROMAIN 12:57
PROVIDERS: ATTEND Internal Medicine Hematology & Oncology
DX: K76.89 Other specified diseases of liver (principal); R59.0 Localized enlarged lymph nodes; C24.9 Malignant neoplasm of biliary tract, unspecified; Z96.89 Presence of other specified functional implants
CPT/HCPCS: 71260; 74177; J1642; Q9967

== ENCOUNTER 2017-11-19 05:52 | Day surgery (SDC) | payer OTHER, MEDICARE, BC ==
[2017-11-17 18:39] VITALS: BMI 25.7
[2017-11-19 06:50] VITALS: TEMP 98.3
[2017-11-19] MEDS ORDERED: LACTATED RINGERS 1,000 ML IV ONE (07:16)
[2017-11-19] MEDS ORDERED: fentaNYL (PF) 50 MCG/ML 2 ML AMP ONE (07:18)
[2017-11-19] MEDS ORDERED: LIDOCAINE 1% INJ 10MG/ML (20 ML MDV) ONE (07:18)
[2017-11-19] MEDS ORDERED: PROPOFOL 10 MG/ML 20 ML VIAL IV ONE (07:18)
[2017-11-19] MEDS ORDERED: IV FLUID CONTINUATION 1,000 ML IV ONE ×2 (07:39)
--- NOTE | 2017-11-19 07:44 | P.PCN ---
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 Had multiple ERCP with metal stent placement and the last one was in May 2017 at [facility]. He is currently undergoing chemotherapy. For the last 1 month he is been having severe epigastric pain associated with heartburn, nausea vomiting and progressive weight loss of almost 20 pounds. He has been on Protonix 40 mg twice daily, Carafate 1 g 4 times daily as well as Zantac at bedtime with no help. Recently was diagnosed with pulmonary embolism and has been started on eliquis 2 weeks ago. Because of the persistent upper GI symptoms he scheduled for an upper endoscopy to evaluate further. PROCEDURE PERFORMED: Esophagogastroduodenoscopy with biopsy. PREOPERATIVE DIAGNOSIS: Persistent nausea, vomiting and severe heartburn 1 month duration. IV sedation per anesthesia. PROCEDURE: After informed consent was obtained, the patient was brought into the endoscopy unit. IV sedation was administered by Anesthesia under continuous monitoring. Initially the Olympus GIF-140 video endoscope was inserted into the mouth. Esophagus intubated without any difficulty. It was gradually advanced into the stomach. In the stomach there was at least 300 mL of liquid retained fluid that was aspirated. The scope at this time was advanced into the duodenum. The bulb of the duodenum appeared normal. There was large amount of food noted in the bulb of the duodenum which was thoroughly irrigated and washed. Subsequently the scope was advanced into the second portion of the duodenum and there was almost near-complete obstruction noted. There was a tight stricture and with gentle pressure I advanced the scope was further and it could see wires from the previously placed metal stent with surrounding ulceration but despite multiple attempts I was not able to advance the scope beyond this area. The mucosa in this area appeared very friable, crowded and multiple biopsies were done. The scope at this time was withdrawn to the stomach , adequately insufflated with air, and upon careful examination, mucosa of the antrum, body, cardia and the fundus appeared normal. The scope was then withdrawn into the esophagus. The GE junction was located at 39 cm from the incisors. There were multiple linear erosions or ulcerations involving the entire esophagus consistent with severe reflux esophagitis. Patient tolerated the procedure well IMPRESSION: 1. 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 2. Retained food in the stomach suggestive of gastric outlet obstruction 3. Multiple erosions or ulcerations involving the entire esophagus consistent with severe reflux esophagitis. RECOMMENDATIONS: The findings of this examination were discussed with the patient as well as his family. He will continue his current medications. He was advised to remain on a clear liquid diet. He will be referred to [facility] for further management of duodenal stricture/obstruction.
[2017-11-19 07:57] VITALS: BP 135/90; PULSE 89; RESP 18
== END 2017-11-19 10:10 | disposition home or self-care (01) ==
LOC: ORWHC2ENDO 05:52
PROVIDERS: ATTEND Internal Medicine Gastroenterology
DX: K29.80 Duodenitis without bleeding (principal); K31.5 Obstruction of duodenum; K22.10 Ulcer of esophagus without bleeding; K21.9 Gastro-esophageal reflux disease without esophagitis; C24.1 Malignant neoplasm of ampulla of Vater; C78.7 Secondary malignant neoplasm of liver and intrahepatic bile duct; I26.99 Other pulmonary embolism without acute cor pulmonale; Z79.01 Long term (current) use of anticoagulants; Z79.890 Hormone replacement therapy; Z79.51 Long term (current) use of inhaled steroids; Z79.899 Other long term (current) drug therapy; Z88.5 Allergy status to narcotic agent; Z85.47 Personal history of malignant neoplasm of testis
CPT/HCPCS: 43239; J2001; J3010; J2704; 88305

== ENCOUNTER → 2018-01-03 | Outpatient (CLI) | payer OTHER, MEDICARE, BC ==
[2018-01-03 08:49] LABS: ALT 24 U/L (21-72); AST 17 U/L (17-59); Albumin 3.3 g/dL (3.5-5.0); Alkaline Phosphatase 62 U/L (38-126); Anion Gap 8 mmol/L; Blood Urea Nitrogen 14 mg/dL (9-20); Calcium 9.5 mg/dL (8.4-10.2); Carbon Dioxide 23 mmol/L (22-30); Chloride 104 mmol/L (98-107); Glucose 118 mg/dL (74-99); Potassium 4.1 mmol/L (3.5-5.1); Sodium 135 mmol/L (137-145); Total Bilirubin 0.5 mg/dL (0.2-1.3); Total Protein 5.8 g/dL (6.3-8.2)
--- NOTE | 2018-01-03 18:58 | CT ---
EXAMINATION TYPE: CT ChestAbdPelvis w con DATE OF EXAM: 01/03/2018 INDICATION: Pancreatic cancer COMPARISON: 11/01/2017 CT DLP: 1016.9 mGycm CONTRAST: Performed with Oral Contrast and with IV Contrast, patient injected with 100 mL of Isovue 300. TECHNIQUE: Axial images at 5 mm thick sections. Reconstructed images in the coronal plane. Delayed images through the kidneys. FINDINGS: CT CHEST: Portion of the thyroid visualized is normal. No suspicious lung nodules or focal infiltrates are present. No enlarged mediastinal or hilar adenopathy is evident. The ascending aorta diameter at the level of the main pulmonary artery is 3.4 cm. The main pulmonary artery diameter at the bifurcation is 2.[address] ABDOMEN: 1.3 cm density is near the gastroesophageal junction. Series 3 image 50. This is stable f rom comparison. Liver: There is a 7.8 x 5.3 cm irregular hypodensity within the posterior right lobe liver. This was present previously and appears smaller than comparison. Spleen: Normal Pancreas: There is been some interval dilatation of the pancreatic duct. This extends to the biliary stent. Pancreatic duct at the proximal tail measures 3.2 cm. Normal is less than 0.1 cm. Adrenal glands: Right adrenal gland is normal. Left adrenal gland is not clearly identified. Gallbladder: Normal Kidneys: No masses are evident. No hydronephrosis is present. No cysts are present. Delayed images were obtained through the kidneys, which remain unremarkable. Aorta: Vascular calcification is within the aorta. Inferior vena cava: Normal. CT PELVIS: Extensive surgical clips are in the periaortic and retrocaval regions. These are also with in the left flank. Loops of bowel within the abdomen and pelvis are normal. There are loops of bowel which are incom pletely distended or lack oral contrast limiting their evaluation. Fecal debris is within the colon. Appendix: Normal as visualized. Urinary bladder: Normal. Genitourinary structures: Prostate appears unremarkable. There are some scattered calcifications with in the prostate. Osseous structures: No suspicious lytic or sclerotic lesions. 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 Facet degenerative changes within the lumbar spine. IMPRESSIONS: 1. Interval dilatation of the pancreatic duct discussed above. 2. Improved irregular hepatic mass which is smaller in size on the current examination.
== END | disposition home or self-care (01) ==
LOC: RADPROMAIN 08:14
PROVIDERS: ATTEND Internal Medicine Hematology & Oncology
DX: C24.9 Malignant neoplasm of biliary tract, unspecified (principal); K86.89 Other specified diseases of pancreas
CPT/HCPCS: 80053; 86301; 71260; 74177; J1642; Q9967

== ENCOUNTER → 2018-01-12 | Outpatient (CLI) | payer OTHER, MEDICARE, BC ==
--- NOTE | 2018-01-12 15:57 | XR ---
EXAMINATION TYPE: XR abdomen complete w decub DATE OF EXAM: 01/12/2018 COMPARISON: 05/23/2016 HISTORY: Biliary duct cancer TECHNIQUE: AP upright abdomen, supine abdomen, left lateral decubitus abdomen FINDINGS: No free air is evident. No suspicious air-fluid levels or differential air-fluid levels are evident. Extensive surgical clips are through the midabdomen. Stents are present. There is fecal debris throughout the colon. Psoas margins appear normal. Organomegaly is not evident. IMPRESSION: 1. Extensive postsurgical changes. 2. No suspicious changes to suggest bowel obstruction.
== END ==
LOC: RADXRMAIN 15:21
PROVIDERS: ATTEND Internal Medicine Hematology & Oncology
DX: C24.9 Malignant neoplasm of biliary tract, unspecified (principal); D64.81 Anemia due to antineoplastic chemotherapy; G62.0 Drug-induced polyneuropathy; I26.99 Other pulmonary embolism without acute cor pulmonale; Z98.890 Other specified postprocedural states
CPT/HCPCS: 74021

== ENCOUNTER 2018-01-16 16:28 | Inpatient (IN) | payer OTHER, MEDICARE, BC ==
[2018-01-16] MEDS ORDERED: SODIUM CHLORIDE 0.9% 1,000 ML IV STA (17:11)
--- NOTE | 2018-01-16 17:17 | ED ---
General Adult HPI - General Chief complaint: Fever Stated complaint: headache, fever, weak Time Seen by Provider: 01/16/18 16:52 Source: patient, family, RN notes reviewed, old records reviewed Mode of arrival: wheelchair Limitations: no limitations - History of Present Illness Initial comments: Chief complaint and history of present illness this is a 67-year-old male in by his . The patient had a fever at home today. reports that he was constipated for several days and then took MiraLAX and has for the past 2 days had diarrhea. At home was temperature was 103. gave him Tylenol. Here in emergency room its 99.1. No vomiting. No pain. No shortness of breath. Patient is on chemotherapy. Patient had pancreatic cancer with delivery duct involvement for the past several years and is on chemotherapy currently. - Related Data Home Medications Medication Instructions Recorded Confirmed Docusate [Colace] 100 mg PO BID 11/19/15 01/16/18 Fluticasone Nasal [place] [Flonase 2 spray EA NOSTRIL DAILY 05/23/16 01/16/18 Nasal [place]] Ursodiol 300 mg PO BID 03/16/17 01/16/18 Levothyroxine Sodium [Synthroid] 100 mcg PO DAILY 06/01/17 01/16/18 Prochlorperazine [Compazine] 10 mg PO Q6H PRN 06/18/17 01/16/18 Acetaminophen [Tylenol Extra 500 - 1,000 mg PO Q6H PRN 11/17/17 01/16/18 Strength] Apixaban [Eliquis] 5 mg PO BID 11/17/17 01/16/18 Pantoprazole Sodium [Protonix] 40 mg PO DAILY 11/17/17 01/16/18 Nystatin 100,000 Unit/ml Susp 500,000 unit PO QID 01/16/18 01/16/18 [Mycostatin Oral Susp] Polyethylene Glycol 3350 [Miralax] 17 gm PO DAILY 01/16/18 01/16/18 guaiFENesin [Mucinex] 600 mg PO DAILY 01/16/18 01/16/18 Allergies Allergy/AdvReac Type Severity Reaction Status Date / Time morphine AdvReac BRADYCARDIC Verified 01/16/18 17:24 Review of Systems ROS Statement: Those systems with pertinent positive or pertinent negative responses have been documented in the HPI. Review of systems. Patient denies any headache or visual acuity changes no sore throat he does have thrush from the chemo. No stiff neck no neck ache. No chest pain cough shortness of breath. Denies any abdominal pain. He has had diarrhea for 2 days. States he feels thirsty. No neuro deficits complained of. All systems are reviewed. Past medical problems significant for pancreaticbiliary duct cancer. GERD, pulmonary embolism several months ago on [address] [place]. Hypothyroidism testicular cancer. Family history noncontributory. Surgeries include testicular surgery as well as stenting of his biliary ducts. ALLERGIES to morphine. Nonsmoker nondrinker. ROS Other: All systems not noted in ROS Statement are negative. Past Medical History Past Medical History: Cancer, GERD/Reflux, Pulmonary Embolus (PE), Thyroid Disorder Additional Past Medical History / Comment(s): Testicular cancer 1979; Pancreatic Cancer, STAGE 4 (February 2015), METS TO LIVER. HX Sepsis. Hypothyroid. upper/lower bridges. CHEMO EVERY OTHER WEEK FOR 3 DAYS VIA POWER PORT, LAST 11/08/17. PE X2 11/01/17, TOLD TO STOP ELIQUIS AFTER AM DOSE 11/17/17. N/V, History of Any Multi-Drug Resistant Organisms: None Reported Past Surgical History: Hernia Repair, Tonsillectomy Additional Past Surgical History / Comment(s): 1979 Lt Testicle, lymph nodes removed along spine. Right Inguinal Hernia Repair x3 with mesh. Hemorrhoidectomy (2011), Colonoscopy (Jan 2015), Titanium Stent in Pancreas (2015 @ [place]), Restent in 01/2016 ([facility]). ERCP'S. Power Port. small intestine stent Past Anesthesia/Blood Transfusion Reactions: Previous Problems w/ Anesthesia Additional Past Anesthesia/Blood Transfusion Reaction / Comment(s): DIFFICULTY URINATING W/ HERNIA, HEMORRHOID SURGERIES. Past Psychological History: No Psychological Hx Reported Smoking Status: Never smoker Past Alcohol Use History: None Reported Past Drug Use History: None Reported - Past Family History Mother Family Medical History: Cancer Additional Family Medical History / Comment(s): Cancer x 3, lived until age 89. Sister(s) Family Medical History: Cancer Additional Family Medical History / Comment(s): Breast cancer. Brother(s) Family Medical History: Cancer Father Family Medical History: Cancer Additional Family Medical History / Comment(s): Colon/bladder cancer x 3, at 94 General Exam - General Exam Comments Initial Comments: General: The patient is awake and alert, in no distress, history of pancreatic cancer, recently laid 2 days of loose stooldiarrhea. Fever at home starting today. Current vital signs temperature 99.1 pulse 116 respiratory rate 18 pulse ox 97% room air blood pressure 91/63. Eye: Pupils are equal, round and reactive to light, extra-ocular movements are intact ; there is normal conjunctiva bilaterally. No signs of icterus. Ears, nose, mouth and throat: There are moist mucous membranes and no oral lesions. Patient does have oral thrush Neck: The neck is supple, there is no tenderness, no anterior cervical lymphadenopathy. Cardiovascular: Tachycardic heart rate, 116. No murmur, rub or gallop is appreciated. Respiratory: Lungs are clear to auscultation, respirations are non-labored, breath sounds are equal. No wheezes, stridor, rales, or rhonchi. Gastrointestinal: Soft, non-distended, non-tender abdomen without masses or organomegaly noted. There is no rebound or guarding present. No CVA tenderness. Active bowel sounds Back: There is no tenderness to palpation in the midline. There is no obvious deformity. Musculoskeletal: Normal ROM, no tenderness, There is no pedal edema. There is no calf tenderness or swelling. Sensation intact. Neurological: CN II-XII intact, There are no obvious motor or sensory deficits. Coordination appears grossly intact. Speech is normal. No neuro deficits noted. Skin: Skin is warm and dry and no rashes or lesions are noted. No rashes noted and then complained of. Psychiatric: Cooperative, appropriate mood & affect, normal judgment. Limitations: no limitations Course Vital Signs 01/16/18 01/16/18 01/16/18 16:33 17:30 18:00 Temperature 99.1 F Pulse Rate 116 H 111 H 104 H Respiratory 18 Rate Blood Pressure 91/63 106/77 104/76 O2 Sat by Pulse 97 97 95 Oximetry EKG Findings - EKG Comments: EKG Findings:: EKG was done and reviewed at 1711 showing sinus tachycardia rate [address] elevation no ectopy no ischemic changes. KS interval is 132 QRS is 78 QT [address] Jensen Medical Decision Making - Medical Decision Making Medical decision making; this is a 67-year-old male being treated for pancreatic cancer. The patient has had fever for one day and diarrhea for 2 days. Feels weak. Had sweats at home. While in emergency room the patient had an IV started receiving fluids. Review is of his past history finds the patient has been septic in the past. Pipracillin was ordered after the appropriate tests were obtained. The patient received IV fluids. The labs show white count of 9.2 hemoglobin 12 medical 39 potassium 4.0. The patient's BUN 17 creatinine 0.8 for the GFR greater than 90. Glucose 119. Lactic acid 2.1. Liver enzymes within normal limits. The patient urine was clean as well. Patient's chest x-ray was reviewed by radiologist and she states was negative. She also reports negative abdominal x-ray per Dr. Jarvis The case discussed with Dr. Hernandes on-call for Dr. Dominguez. Patient be admitted to general medicine with oncology to consult. He states the current antibiotic choice of pipracillin is adequate. - Lab Data Result diagrams: 01/16/18 17:02 01/16/18 17:02 Lab Results 01/16/18 01/16/18 01/16/18 Range/Units 17:02 17:02 17:02 WBC 9.2 (3.8-10.6) k/uL RBC 3.74 L (4.30-5.90) m/uL Hgb 12.7 L (13.0-17.5) gm/dL Hct 39.0 (39.0-53.0) % MCV 104.1 H (80.0-100.0) fL MCH 34.0 (25.0-35.0) pg MCHC 32.7 (31.0-37.0) g/dL RDW 17.1 H (11.5-15.5) % Plt Count 327 (150-450) k/uL Neutrophils % 91 % Lymphocytes % 3 % Monocytes % 3 % Eosinophils % 1 % Basophils % 1 % Neutrophils # 8.4 H (1.3-7.7) k/uL Lymphocytes # 0.3 L (1.0-4.8) k/uL Monocytes # 0.3 (0-1.0) k/uL Eosinophils # 0.1 (0-0.7) k/uL Basophils # 0.0 (0-0.2) k/uL Anisocytosis Slight Macrocytosis Moderate Sodium 132 L (137-145) mmol/L Potassium 4.0 (3.5-5.1) mmol/L Chloride 103 (98-107) mmol/L Carbon Dioxide 20 L (22-30) mmol/L Anion Gap 9 mmol/L BUN 17 (9-20) mg/dL Creatinine 0.84 (0.66-1.25) mg/dL Est GFR (CKD-EPI)AfAm >90 (>60 ml/min/1.73 sqM) Est GFR (CKD-EPI)NonAf >90 (>60 ml/min/1.73 sqM) Glucose 119 H (74-99) mg/dL Plasma Lactic Acid Paddy 2.1 H* (0.7-2.0) mmol/L Calcium 9.1 (8.4-10.2) mg/dL Total Bilirubin 0.6 (0.2-1.3) mg/dL AST 23 (17-59) U/L ALT 29 (21-72) U/L Alkaline Phosphatase 70 (38-126) U/L Total Protein 5.9 L (6.3-8.2) g/dL Albumin 3.3 L (3.5-5.0) g/dL Urine Color Urine Appearance (Clear) Urine pH (5.0-8.0) Ur Specific [place] (1.001-1.035) Urine Protein (Negative) Urine Glucose (UA) (Negative) Urine Ketones (Negative) Urine Blood (Negative) Urine Nitrite (Negative) Urine Bilirubin (Negative) Urine Urobilinogen (<2.0) mg/dL Ur Leukocyte Esterase (Negative) 01/16/18 Range/Units Unknown WBC (3.8-10.6) k/uL RBC (4.30-5.90) m/uL Hgb (13.0-17.5) gm/dL Hct (39.0-53.0) % MCV (80.0-100.0) fL MCH (25.0-35.0) pg MCHC (31.0-37.0) g/dL RDW (11.5-15.5) % Plt Count (150-450) k/uL Neutrophils % % Lymphocytes % % Monocytes % % Eosinophils % % Basophils % % Neutrophils # (1.3-7.7) k/uL Lymphocytes # (1.0-4.8) k/uL Monocytes # (0-1.0) k/uL Eosinophils # (0-0.7) k/uL Basophils # (0-0.2) k/uL Anisocytosis Macrocytosis Sodium (137-145) mmol/L Potassium (3.5-5.1) mmol/L Chloride (98-107) mmol/L Carbon Dioxide (22-30) mmol/L Anion Gap mmol/L BUN (9-20) mg/dL Creatinine (0.66-1.25) mg/dL Est GFR (CKD-EPI)AfAm (>60 ml/min/1.73 sqM) Est GFR (CKD-EPI)NonAf (>60 ml/min/1.73 sqM) Glucose (74-99) mg/dL Plasma Lactic Acid Paddy (0.7-2.0) mmol/L Calcium (8.4-10.2) mg/dL Total Bilirubin (0.2-1.3) mg/dL AST (17-59) U/L ALT (21-72) U/L Alkaline Phosphatase (38-126) U/L Total Protein (6.3-8.2) g/dL Albumin (3.5-5.0) g/dL Urine Color Yellow Urine Appearance Clear (Clear) Urine pH 6.0 (5.0-8.0) Ur Specific [place] 1.016 (1.001-1.035) Urine Protein Negative (Negative) Urine Glucose (UA) Negative (Negative) Urine Ketones Negative (Negative) Urine Blood Negative (Negative) Urine Nitrite Negative (Negative) Urine Bilirubin Negative (Negative) Urine Urobilinogen 3.0 (<2.0) mg/dL Ur Leukocyte Esterase Negative (Negative) Disposition Clinical Impression: History of pancreatic cancer, Diarrhea, Fever and chills Disposition: ADMITTED IP TO THIS HOSP Condition: Serious Referrals: Shelby Styles MD [Primary Care Provider] - 1-2 days
[2018-01-16 17:29] LABS: Anisocytosis Slight; Basophils % (A) 1 %; Eosinophils # (A) 0.1 k/uL (0-0.7); Eosinophils % (A) 1 %; HGB 12.7 gm/dL (13.0-17.5); Lymphocytes # (A) 0.3 k/uL (1.0-4.8); Lymphocytes % (A) 3 %; MCHC 32.7 g/dL (31.0-37.0); MCV 104.1 fL (80.0-100.0); Macrocytosis Moderate; Mean Platelet Volume 6.6; Monocytes # (A) 0.3 k/uL (0-1.0); Monocytes % (A) 3 %; Neutrophils # (A) 8.4 k/uL (1.3-7.7); Neutrophils % (A) 91 %; Platelet Count 327 k/uL (150-450); RBC 3.74 m/uL (4.30-5.90); RDW 17.1 % (11.5-15.5); WBC 9.2 k/uL (3.8-10.6)
[2018-01-16 17:41] LABS: ALT 29 U/L (21-72); AST 23 U/L (17-59); Albumin 3.3 g/dL (3.5-5.0); Alkaline Phosphatase 70 U/L (38-126); Anion Gap 9 mmol/L; Blood Urea Nitrogen 17 mg/dL (9-20); Calcium 9.1 mg/dL (8.4-10.2); Carbon Dioxide 20 mmol/L (22-30); Chloride 103 mmol/L (98-107); Glucose 119 mg/dL (74-99); Sodium 132 mmol/L (137-145); Total Bilirubin 0.6 mg/dL (0.2-1.3); Total Protein 5.9 g/dL (6.3-8.2)
[2018-01-16 17:41] LABS: Appearance,Urine Clear (Clear); Bilirubin,Urine Negative (Negative); Blood,Urine Negative (Negative); Color,Urine Yellow; Glucose,Urine (UA) Negative (Negative); Ketones,Urine Negative (Negative); Leukocyte Esterase,Urine Negative (Negative); Nitrite,Urine Negative (Negative); Protein,Urine Negative (Negative); Specific Gravity,Urine 1.016 (1.001-1.035)
[2018-01-16] MEDS ORDERED: PIPERACILLIN-TAZOBACTAM 3.375 GM in SODIUM CHLORIDE 0.9% 100 ML IVPB SCH (17:45)
--- NOTE | 2018-01-16 17:52 | XR ---
EXAMINATION TYPE: XR chest 1V DATE OF EXAM: 01/16/2018 COMPARISON: 08/18/2017 HISTORY: Fever and weakness. Metastatic pancreatic carcinoma. TECHNIQUE: Single frontal view of the chest is obtained. FINDINGS: There is no focal air space opacity, pulmonary vascular congestion, or pneumothorax seen. The cardiac silhouette size is within normal limits. The osseous structures are intact. Postsurgic al changes seen in the upper abdomen with biliary stent also partially visualized. Left hemidiaphragm elevation is unchanged from the prior of 08/26/2017. Left-sided Mediport is also unchanged in position . Trace left pleural effusion has improved. IMPRESSION: No acute cardiopulmonary process. Improved trace left pleural effusion.
--- NOTE | 2018-01-16 17:53 | XR ---
EXAMINATION TYPE: XR abdomen 2V DATE OF EXAM: 01/16/2018 5:43 PM CLINICAL HISTORY: Pancreatic cancer. Abdominal pain. TECHNIQUE: Upright and supine abdominal radiographs were obtained. COMPARISON: 01/12/2018. FINDINGS: [place] stent and duodenal stent are seen with extensive postsurgical change of the central a bdomen. Scattered gas is seen in nondilated small bowel loops. Gas and fecal material is seen in nond ilated colon. There is no visceromegaly, pneumoperitoneum, or abnormal calcification appreciated. The lung bases are clear and the osseous structures are intact. IMPRESSION: Extensive postsurgical change of the central abdomen, biliary stent, and duodenal stent. Nonobstructive bowel gas pattern. No pneumoperitoneum.
[2018-01-16] MEDS ORDERED: PIPERACILLIN-TAZOBACTAM 3.375 GM in SODIUM CHLORIDE 0.9% 100 ML IVPB STA (18:09)
[2018-01-16] MEDS ORDERED: ACETAMINOPHEN TAB 325 MG TAB PO PRN (19:07)
[2018-01-16] MEDS ORDERED: NALOXONE 0.4 MG/ML 1 ML VIAL IV PRN (19:07)
[2018-01-16] MEDS ORDERED: SODIUM CHLORIDE 0.9% 1,000 ML IV SCH (19:15)
[2018-01-16] MEDS ORDERED: SODIUM CHLORIDE 0.9% 500 ML 500 ML IV ONE (19:19)
[2018-01-16] MEDS ORDERED: VANCOMYCIN IV PER PHARMACY 1 EACH MISC MISCELLANE PRN (19:41)
[2018-01-16] MEDS ORDERED: VANCOMYCIN 1,750 MG in SODIUM CHLORIDE 0.9% 500 ML 500 ML IVPB STA (19:50)
[2018-01-16 23:06] LABS: Glucose,Whole Blood 120 mg/dL (75-99)
--- NOTE | 2018-01-16 23:39 | HP ---
HISTORY AND PHYSICAL CHIEF COMPLAINT: Diarrhea and fever. HISTORY OF PRESENT ILLNESS: This 67 -year-old gentleman with a past medical history of GERD, history of pulmonary embolism, hypothyroidism, history of testicular cancer, history of pancreatobiliary cancer stage IV with METS to the liver, hypothyroidism being followed by Dr. Styles in the outpatient setting also seeing [facility] group of physicians, gastroenterology. The patient also seen Dr. Taveras. The patient is receiving chemotherapy. 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 The patient had 3 stents previously and an off-label use of duodenal stent was inserted which was working okay according to the family. The patient is able to eat and currently the patient is having constipation. Subsequently patient took some MiraLAX and the patient has also some diarrhea now. The patient also had fever and sweats and because of multiple medical issues, patient taken to [facility] and was admitted for further evaluation treatment. The patient is also on chemotherapy. The lactic acid is also elevated at 2.1. There is no history of any fever, rigors. No history of headache, loss of consciousness, seizures at this time. LFTs are normal at this time. PAST MEDICAL HISTORY: Pancreatobiliary cancer, history of pulmonary embolism, GERD, thyroid disorder, testicular cancer, history of hypothyroidism, history of hernia repair. MEDICATIONS: Prior to admission include home medications are: 1. Mucinex 600 mg p.o. daily. 2. 300 mg p.o. b.i.d. 3. Compazine 10 mg q.6h p.r.n. 4. MiraLAX 17 g daily. 5. Protonix 40 mg daily. 6. Mycostatin 5000 subcu q.i.d. 7. Synthroid 100 mcg p.o. daily. 8. Flonase 2 sprays daily. 9. Colace 100 mg p.o. b.i.d. 10.Eliquis 5 mg p.o. b.i.d. 11.Tylenol 500 mg q.6h p.r.n. ALLERGIES: MORPHINE. FAMILY HISTORY: History of cancer in the family. SOCIAL HISTORY: No history of smoking. No history of alcohol intake. REVIEW OF SYSTEMS: ENT: No diminished vision, no diminished hearing. Cardiovascular: No angina or palpitations. RESPIRATORY: No cough or hemoptysis. GI as mentioned earlier. no dysuria. Nervous system: No numbness or weakness. Allergy/Immunology: No asthma or hayfever. Musculoskeletal: As mentioned earlier. Hematology/oncology: As mentioned earlier. Endocrine: As mentioned earlier. Constitutional: As mentioned earlier. Dermatology: Negative. Rheumatology: Negative. Psychiatry: As mentioned earlier. PHYSICAL EXAMINATION: The patient is alert and oriented times three. Pulse 92. Blood pressure 86/69, respirations 16, temperature 100.1, pulse ox 97% on room air. HEENT: Conjunctivae normal. Oral mucosa moist. Neck is no jugular venous distention. No carotid bruit. No lymph node enlargement. Cardiovascular system: S1, S2 muffled. No S3, no S4. Respiratory: Breath sounds diminished in the bases. A few scattered rhonchi. No crackles. ABDOMEN: Soft, nontender. No mass palpable. No guarding. No rigidity. Legs : No edema. No swelling. NERVOUS SYSTEM: Higher functions as mentioned earlier. Moves all four limbs. No focal deficits. Lymphatics: No lymph nodes palpable in the neck, axillae or groin. Skin: No ulcer, no rash. No bleeding. LABS: WBC 9.2, hemoglobin 12.7, MCV 104.1, sodium 132, plasma lactic acid 2.1. ASSESSMENT: 1. Acute sepsis, rule out biliary sepsis. 2. Diarrhea for evaluation. 3. Anemia, macrocytic. 4. Hyponatremia. 5. Elevated plasma lactic acid. 6. Pancreatobiliary duct cancer status multiple stents and on chemotherapy. 7. History of cholangitis and sepsis previously. 8. History of duodenal stenosis and stent placement at [facility]. 9. Hypothyroidism. 10.Multiple episodes of cholangitis. 11.History of pulmonary embolus. 12.History of testicular cancer. 13.History of metastasis of the liver. RECOMMENDATIONS AND DISCUSSION: In this 67-year-old gentleman who presented with multiple complex medical issues , we will monitor the patient closely, continue the current medications, continue symptomatic treatment, management and we will initiate broad-spectrum IV antibiotics. Obtain the cultures and I would also recommend repeat labs. Infectious disease evaluation by Dr. Spivey. Monitor in ICU. IV fluid boluses. The prognosis guarded because of multiple complex medical issues. Further recommendations to follow. DVT prophylaxis. Discussed with the family at length. Copy of dictation being forwarded to Dr. Styles who is the primary care physician. MMTHANGL / IJN: [id number] / RIKA
[2018-01-17] MEDS: APIXABAN 5 MG TAB PO SCH ×3 (00:04→20:33)
[2018-01-17] MEDS: URSODIOL 300 MG CAP PO SCH ×3 (00:04→20:39)
[2018-01-17] MEDS: NYSTATIN 100,000 UNIT/ML SUSP 500,000 UNIT/5 ML CUP PO SCH ×5 (00:06→22:20)
[2018-01-17] MEDS: SODIUM CHLORIDE 0.9% 1,000 ML IV SCH ×4 (00:14→22:24)
[2018-01-17 01:00] VITALS: BMI 28.2
[2018-01-17] MEDS: PIPERACILLIN-TAZOBACTAM 3.375 GM in SODIUM CHLORIDE 0.9% 100 ML IVPB SCH ×3 (04:21→20:32)
[2018-01-17 05:26] LABS: Anisocytosis Slight; Basophils % (A) 1 %; Eosinophils # (A) 0.3 k/uL (0-0.7); Eosinophils % (A) 5 %; HCT 31.9 % (39.0-53.0); HGB 10.6 gm/dL (13.0-17.5); Lymphocytes # (A) 0.6 k/uL (1.0-4.8); Lymphocytes % (A) 9 %; MCH 35.1 pg (25.0-35.0); MCHC 33.3 g/dL (31.0-37.0); MCV 105.6 fL (80.0-100.0); Macrocytosis Moderate; Mean Platelet Volume 6.7; Monocytes # (A) 0.3 k/uL (0-1.0); Monocytes % (A) 4 %; Neutrophils # (A) 5.2 k/uL (1.3-7.7); Neutrophils % (A) 81 %; Platelet Count 313 k/uL (150-450); RBC 3.02 m/uL (4.30-5.90); RDW 17.1 % (11.5-15.5); WBC 6.5 k/uL (3.8-10.6)
[2018-01-17 05:36] LABS: ALT 26 U/L (21-72); AST 15 U/L (17-59); Albumin 2.5 g/dL (3.5-5.0); Alkaline Phosphatase 51 U/L (38-126); Anion Gap 4 mmol/L; Blood Urea Nitrogen 13 mg/dL (9-20); Calcium 8.6 mg/dL (8.4-10.2); Carbon Dioxide 24 mmol/L (22-30); Chloride 107 mmol/L (98-107); Glucose 111 mg/dL (74-99); Magnesium 2.1 mg/dL (1.6-2.3); Phosphorus 3.8 mg/dL (2.5-4.5); Potassium 4.3 mmol/L (3.5-5.1); Sodium 135 mmol/L (137-145); Total Bilirubin 0.4 mg/dL (0.2-1.3); Total Protein 4.8 g/dL (6.3-8.2)
[2018-01-17] MEDS: LEVOTHYROXINE 100 MCG TAB PO SCH (06:52)
[2018-01-17] MEDS: PANTOPRAZOLE 40 MG TABLET PO SCH (06:52)
[2018-01-17] MEDS: FLUTICASONE 50MCG/SPRAY NASAL 16GM EA NOSTRIL SCH (09:56)
[2018-01-17] MEDS: VANCOMYCIN 1,750 MG in SODIUM CHLORIDE 0.9% 500 ML 500 ML IVPB SCH ×2 (09:58→22:20)
--- NOTE | 2018-01-17 10:01 | P.CNPUL ---
History of Present Illness Consult date: 01/17/18 Requesting physician: Lizbeth Larkin Reason for consult: other (Critical care management) Chief complaint: Diarrhea, febrile illness History of present illness: This is a very pleasant 67-year-old gentleman who follows with Dr. Styles as his primary care physician. He has a remote history of testicular cancer status post left-sided orchiectomy in 1979, hypothyroidism, pulmonary embolism, gastroesophageal reflux disease. 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 He has had titanium stents placed in the pancreas, duodenal and biliary duct. The patient had recently had issues with vomiting and had undergone EGD by Dr. 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 There was retained food in the stomach suggestive of gastric outlet obstruction. There is multiple erosions or ulcerations involving the entire esophagus consistent with severe reflux esophagitis. The patient was referred to [facility] and had undergone off label use of the duodenal stent. He is anticoagulated with Eliquis. Computed tomography scan of the abdomen from 01/03 revealed interval dilatation of the pancreatic duct that extends to the biliary stent. Also showed improved irregular hepatic mass which is small in size compared to previous. The patient is currently receiving chemotherapy. The patient presented here yesterday with complaints of initially constipation and took some MiraLAX at home and then developed significant diarrhea. He also had developed a fever and sweats and a temperature of 103. Urine culture is pending. He is seen today in consultation in the intensive care unit. He is currently resting quite comfortably in bed. He denies any worsening shortness of breath, cough or congestion. He is currently afebrile. He is maintaining good O2 saturations in the mid 90s on room air. Hemodynamically stable. He did not require any pressor support. He has a 0.9 normal saline at 35 ML's per hour. He did receive a total of 2.5 L of fluid resuscitation. Abdominal x-ray reveals extensive postsurgical changes at the central abdomen, biliary stent, duodenal stent. Nonobstructive bowel gas pattern. No pneumoperitoneum. He has been initiated on vancomycin and Zosyn. White count 6.5. Hemoglobin 10.6. Platelet count 313,000. Creatinine 0.77. Review of Systems Constitutional: Reports fever, Reports poor appetite, Reports weakness Eyes: denies blurred vision, denies decreased vision Ears: deny: decreased hearing Ears, nose, mouth and throat: Denies headache, Denies sore throat Cardiovascular: Denies chest pain, Denies shortness of breath Respiratory: Denies cough Gastrointestinal: Reports diarrhea Genitourinary: Reports as per HPI Musculoskeletal: Denies myalgias Integumentary: Denies pruritus, Denies rash Neurological: Denies numbness, Denies weakness Psychiatric: Denies anxiety, Denies depression Endocrine: Denies fatigue, Denies weight change Hematologic/Lymphatic: Reports as per HPI Allergic/Immunologic: Reports as per HPI Past Medical History Past Medical History: Cancer, GERD/Reflux, Pulmonary Embolus (PE), Thyroid Disorder Additional Past Medical History / Comment(s): Testicular cancer 1979; Pancreatic Cancer, STAGE 4 (February 2015), METS TO LIVER. HX Sepsis. Hypothyroid. upper/lower bridges. CHEMO EVERY OTHER WEEK FOR 3 DAYS VIA POWER PORT. PE X2 11/01/17. History of Any Multi-Drug Resistant Organisms: None Reported Past Surgical History: Hernia Repair, Tonsillectomy Additional Past Surgical History / Comment(s): 1979 Lt Testicle, lymph nodes removed along spine. Right Inguinal Hernia Repair x3 with mesh. Hemorrhoidectomy (2011), Colonoscopy (Jan 2015), Titanium Stent in Pancreas (2015 @ [place]), Restent in 01/2016 ([facility]). ERCP'S. Power Port. small intestine stent Past Anesthesia/Blood Transfusion Reactions: Previous Problems w/ Anesthesia Additional Past Anesthesia/Blood Transfusion Reaction / Comment(s): DIFFICULTY URINATING W/ HERNIA, HEMORRHOID SURGERIES. Past Psychological History: No Psychological Hx Reported Additional Psychological History / Comment(s): Pt resides with his spouse and son. There is a cat in the household. Pt is independent. 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 He lives at home with his and son. There is a cat in the home. No recent travel or service. Past Drug Use History: None Reported Additional Drug Use History / Comment(s): . - Past Family History Mother Family Medical History: Cancer Additional Family Medical History / Comment(s): Cancer x 3, lived until age 89. Sister(s) Family Medical History: Cancer Additional Family Medical History / Comment(s): Breast cancer. Brother(s) Family Medical History: Cancer Father Family Medical History: Cancer Additional Family Medical History / Comment(s): Colon/bladder cancer x 3, at 94 Medications and Allergies Home Medications Medication Instructions Recorded Confirmed Type Docusate [Colace] 100 mg PO BID 11/19/15 01/16/18 History Fluticasone Nasal [place] [Flonase 2 spray EA NOSTRIL DAILY 05/23/16 01/16/18 History Nasal [place]] Ursodiol 300 mg PO BID 03/16/17 01/16/18 History Levothyroxine Sodium [Synthroid] 100 mcg PO DAILY 06/01/17 01/16/18 History Prochlorperazine [Compazine] 10 mg PO Q6H PRN 06/18/17 01/16/18 History Acetaminophen [Tylenol Extra 500 - 1,000 mg PO Q6H PRN 11/17/17 01/16/18 History Strength] Apixaban [Eliquis] 5 mg PO BID 11/17/17 01/16/18 History Pantoprazole Sodium [Protonix] 40 mg PO DAILY 11/17/17 01/16/18 History Nystatin 100,000 Unit/ml Susp 500,000 unit PO QID 01/16/18 01/16/18 History [Mycostatin Oral Susp] Polyethylene Glycol 3350 [Miralax] 17 gm PO DAILY 01/16/18 01/16/18 History guaiFENesin [Mucinex] 600 mg PO DAILY 01/16/18 01/16/18 History Allergies Allergy/AdvReac Type Severity Reaction Status Date / Time morphine AdvReac BRADYCARDIC Verified 01/16/18 17:24 Physical Exam Vitals: Vital Signs Temp Pulse Pulse Resp BP BP Pulse Ox 01/17/18 07:01 71 14 107/76 01/17/18 06:00 62 14 107/76 01/17/18 05:00 67 15 118/66 01/17/18 04:00 98 F 65 14 100/69 96 01/17/18 03:00 67 15 93/77 01/17/18 02:00 98.1 F 67 14 102/62 01/17/18 01:00 70 13 102/76 98 01/17/18 00:00 66 14 109/71 97 01/16/18 23:00 74 14 115/78 96 01/16/18 22:00 78 124/72 97 01/16/18 21:00 84 115/67 97 01/16/18 20:40 89 115/67 96 01/16/18 20:30 92 96/68 97 01/16/18 20:00 86 97/75 95 01/16/18 19:30 100.1 F H 92 16 86/69 97 01/16/18 19:00 95 98/73 96 01/16/18 18:00 104 H 104/76 95 01/16/18 17:30 111 H 106/77 97 01/16/18 16:33 99.1 F 116 H 18 91/63 97 Intake and Output 01/16/18 01/17/18 01/17/18 22:59 06:59 14:59 Intake Total 100 1651 150 Output Total 800 0 Balance 100 851 150 Intake: IV 100 1251 150 Piperacillin-Tazobactam 3 150 25 .375 gm In Sodium Chloride 0.9% 100 ml @ 25 mls/hr IVPB ONCE [facility] Rx# :[id number] Sodium Chloride 0.9% 1, 100 100 000 ml @ 100 mls/hr IV . Q10H [facility] Rx#:[id number] Sodium Chloride 0.9% 1, 500 125 000 ml @ 150 mls/hr IV . Q6H40M [facility] Rx#:[id number] Vancomycin 1,750 mg In 501 Sodium Chloride 0.9% 500 ml 500 ml @ 167 mls/hr IVPB Q12HR [facility] Rx#: [id number] Oral 400 Output: Urine 800 0 Other: Voiding Method Urinal # Voids 1 Weight 79.4 kg 78.4 kg GENERAL EXAM: Alert, active, comfortable in no apparent distress. HEAD: Normocephalic. EYES: Normal reaction of pupils, equal size. NOSE: Clear with pink turbinates. THROAT: No erythema or exudates. NECK: No masses, no JVD. CHEST: No chest wall deformity. LUNGS: Equal air entry with no crackles, wheeze, rhonchi or dullness. CVS: S1 and S2 normal with no audible murmur, regular rhythm. ABDOMEN: No hepatosplenomegaly, normal bowel sounds, no guarding or rigidity. SPINE: No scoliosis or deformity SKIN: No rashes CENTRAL NERVOUS SYSTEM: No focal deficits, tone is normal in all 4 extremities. EXTREMITIES: There is no peripheral edema. No clubbing, no cyanosis. Peripheral pulses are intact. Results - Laboratory Findings CBC and BMP: 01/17/18 04:45 01/17/18 04:45 Abnormal lab findings: Abnormal Labs 01/16/18 01/16/18 01/16/18 17:02 17:02 17:02 RBC 3.74 L Hgb 12.7 L Hct MCV 104.1 H MCH RDW 17.1 H Neutrophils # 8.4 H Lymphocytes # 0.3 L Sodium 132 L Carbon Dioxide 20 L Glucose 119 H POC Glucose (mg/dL) Plasma Lactic Acid Paddy 2.1 H* AST Total Protein 5.9 L Albumin 3.3 L 01/16/18 01/17/18 01/17/18 23:03 04:45 04:45 RBC 3.02 L Hgb 10.6 L Hct 31.9 L MCV 105.6 H MCH 35.1 H RDW 17.1 H Neutrophils # Lymphocytes # 0.6 L Sodium 135 L Carbon Dioxide Glucose 111 H POC Glucose (mg/dL) 120 H Plasma Lactic Acid Paddy AST 15 L Total Protein 4.8 L Albumin 2.5 L Assessment and Plan Assessment: Impression: #1 Diarrhea with febrile illness and possible sepsis of unclear etiology. #2 Immunocompromised secondary to chemotherapy for advanced stage IV pancreatic cancer with liver metastasis. Previous biliary and pancreatic stent placements. #3 Recent episode of nausea and vomiting secondary to duodenal stenosis, status post stent placement. #4 History of pulmonary embolism, currently anticoagulated with Eliquis. #5 Hypothyroidism. #6 History of testicular cancer back in 1979 status post left orchiectomy. Plan: The patient was seen and evaluated by Dr. Nugent. He is currently afebrile. Hemodynamically stable. He is stable from the pulmonary and critical care standpoint. He could be transferred to medical/oncology floor today. Continue vancomycin and Zosyn for now. ID consult pending. We will continue to follow and make further recommendations based on his clinical status. I, the cosigning physician, performed a history & physical examination of the patient. Lungs sounds are clear. Maintaining good O2 saturations in the 90s on room air. I discussed the assessment and plan of care with my nurse practitioner, Liz Reyes. I attest to the above consultation as dictated by her. Time with Patient: Greater than 30
[2018-01-17 10:27] VITALS: BP 117/74; RESP 18
[2018-01-17 10:57] VITALS: TEMP 98.2
[2018-01-17 16:32] LABS: Hemoglobin A1C 5.5 % (4.0-6.0)
--- NOTE | 2018-01-17 17:16 | PN ---
PROGRESS NOTE DATE OF SERVICE: 01/17/2018 This 67-year-old gentleman admitted with significant sepsis, possibly biliary sepsis, is on IV antibiotics. Patient also had diarrhea, which is improving at this time. Cultures are negative. Patient is on broad-spectrum IV antibiotics. Patient has multiple complicated recent medical and surgical history, including multiple stent placements and also including duodenal stent placement. Past medical history reviewed. REVIEW OF SYSTEMS: CARDIOVASCULAR SYSTEM: No angina, palpitations. RESPIRATORY SYSTEM: As mentioned earlier. GI: As mentioned earlier. : No dysuria or retention. NERVOUS SYSTEM: No numbness, weakness. CURRENT MEDICATIONS: Reviewed. They include: 1. Tylenol 650 q.6 p.r.n. 2. Eliquis 5 mg b.i.d. 3. Flonase. 4. Synthroid 100 mcg p.o. daily. 5. Narcan 0.2 q.2 p.r.n. 6. Protonix 40 mg b.i.d. 7. Zosyn 3.375 IV q.8. 8. Actigall 300 mg t.i.d. 9. Vancomycin IV. PHYSICAL EXAMINATION: Patient is alert, oriented x3. Pulse 72, blood pressure 122/79, respiration 16, temperature normal, pulse ox normal. HEENT: Conjunctivae normal. Oral mucosa moist. NECK: No jugular venous distention. No carotid bruit. No lymph node enlargement. CARDIOVASCULAR SYSTEM: S1, S2 muffled. RESPIRATORY SYSTEM: Breath sounds diminished at the bases. A few scattered rhonchi and crackles. ABDOMEN: Soft, non-tender. LEGS: No edema. No swelling. NERVOUS SYSTEM: Higher functions as mentioned earlier. Moves all 4 limbs. No focal motor or sensory deficit. LYMPHATICS: No lymph node palpable in neck, axillae or groin. SKIN: No ulcer, rash, bleeding. LABS: WBC 6.5, hemoglobin 10.6 and MCV 105.6. Sodium 135, albumin 2.5. ASSESSMENT: 1. Acute sepsis. Rule out biliary sepsis. 2. Diarrhea for evaluation, improved. 3. Anemia, macrocytic. 4. Hyponatremia. 5. Elevated plasma lactic acid. 6. Acute biliary duct cancer, status post multiple stents and chemotherapy. 7. History of cholangitis and sepsis previously. 8. History of duodenal stenosis and stent placement at [facility] recently. 9. Hypothyroidism. 10.History of multiple episodes of cholangitis. 11.History of pulmonary embolus. 12.History of testicular cancer. 13.History of metastasis to the liver. 14.FULL CODE. RECOMMENDATIONS AND DISCUSSION: In this 67-year-old gentleman who presented with multiple complex medical issues, we will continue the current medications, continue with symptomatic treatment. Otherwise at this time I recommend continuing with antibiotics. Continue the rest of the medications. The prognosis is guarded because of multiple complex medical issues. Further recommendations to follow. MMODL / IJN: [id number] /
--- NOTE | 2018-01-17 23:30 | P.CONS ---
History of Present Illness - Reason for Consult Consult date: 01/17/18 Diarrhea Requesting physician: Lizbeth Larkin - Chief Complaint Fever, diarrhea - History of Present Illness Pleasant 67-year-old male with medical history significant for hypothyroidism, pulmonary embolism, GERD, testicular cancer status post orchiectomy, and metastatic pancreatic cancer who presented with complaints of fever and loose stool. The patient is a history of pancreatic cancer with metastases to the liver diagnosed in 2015. Currently he is undergoing chemotherapy with 5- fluorouracil and states that the chemotherapy makes him constipated. At home he was taking MiraLAX twice daily and subsequently had loose stool, in addition to fevers which caused him to present to the hospital. On presentation the patient's liver numbers were significant for a total bilirubin 0.4, alkaline phosphatase 51, AST 15 and ALT 26. He had an x-ray of the abdomen which showed postsurgical changes as well as a duodenal and biliary stent. Currently the patient is saying that his diarrhea has resolved. No reports of hematochezia or melena. The patient previously underwent EGD for evaluation of nausea and decreased oral intake in October 2017 which was significant for almost complete obstruction of the second portion of the duodenum, as well as severe reflux esophagitis. The patient was referred to [facility] where he had duodenal stent placement. Currently the patient is reporting that he is eating without any difficulty and has a good appetite. The patient is on Protonix at home. Review of Systems REVIEW OF SYSTEMS: CARDIO: Denies any chest pain or palpitations. PULMONARY: Denies any shortness of breath or wheezing. GENITOURINARY: No dysuria or hematuria. MUSCULOSKELETAL: No weakness reported. SKIN: Denies any new rashes or lesions, jaundice or pallor. PSYCHIATRIC: Denies any depression or anxiety. NEUROLOGY: Denies headache, denies any new focal deficits. EARS: No tinnitus, discharge or new hearing loss. NOSE: No discharge or congestion. EYES: No pain in eyes or change in vision. CONSTITUTIONAL: No recent weight loss. No fever, chills, night sweats. Past Medical History Past Medical History: Cancer, GERD/Reflux, Pulmonary Embolus (PE), Thyroid Disorder Additional Past Medical History / Comment(s): Testicular cancer 1979; Pancreatic Cancer, STAGE 4 (February 2015), METS TO LIVER. HX Sepsis. Hypothyroid. upper/lower bridges. CHEMO EVERY OTHER WEEK FOR 3 DAYS VIA POWER PORT. PE X2 11/01/17. History of Any Multi-Drug Resistant Organisms: None Reported Past Surgical History: Hernia Repair, Tonsillectomy Additional Past Surgical History / Comment(s): 1979 Lt Testicle, lymph nodes removed along spine. Right Inguinal Hernia Repair x3 with mesh. Hemorrhoidectomy (2011), Colonoscopy (Jan 2015), Titanium Stent in Pancreas (2015 @ [place]), Restent in 01/2016 ([facility]). ERCP'S. Power Port. small intestine stent Past Anesthesia/Blood Transfusion Reactions: Previous Problems w/ Anesthesia Additional Past Anesthesia/Blood Transfusion Reaction / Comm: DIFFICULTY URINATING W/ HERNIA, HEMORRHOID SURGERIES. Past Psychological History: No Psychological Hx Reported Additional Psychological History / Comment(s): Pt resides with his spouse and son. There is a cat in the household. Pt is independent. 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 He lives at home with his and son. There is a cat in the home. No recent travel or service. Past Drug Use History: None Reported Additional Drug Use History / Comment(s): . - Past Family History Mother Family Medical History: Cancer Additional Family Medical History / Comment(s): Cancer x 3, lived until age 89. Sister(s) Family Medical History: Cancer Additional Family Medical History / Comment(s): Breast cancer. Brother(s) Family Medical History: Cancer Father Family Medical History: Cancer Additional Family Medical History / Comment(s): Colon/bladder cancer x 3, at 94 Medications and Allergies Home Medications Medication Instructions Recorded Confirmed Type Docusate [Colace] 100 mg PO BID 11/19/15 01/16/18 History Fluticasone Nasal [place] [Flonase 2 spray EA NOSTRIL DAILY 05/23/16 01/16/18 History Nasal [place]] Ursodiol 300 mg PO BID 03/16/17 01/16/18 History Levothyroxine Sodium [Synthroid] 100 mcg PO DAILY 06/01/17 01/16/18 History Prochlorperazine [Compazine] 10 mg PO Q6H PRN 06/18/17 01/16/18 History Acetaminophen [Tylenol Extra 500 - 1,000 mg PO Q6H PRN 11/17/17 01/16/18 History Strength] Apixaban [Eliquis] 5 mg PO BID 11/17/17 01/16/18 History Pantoprazole Sodium [Protonix] 40 mg PO DAILY 11/17/17 01/16/18 History Nystatin 100,000 Unit/ml Susp 500,000 unit PO QID 01/16/18 01/16/18 History [Mycostatin Oral Susp] Polyethylene Glycol 3350 [Miralax] 17 gm PO DAILY 01/16/18 01/16/18 History guaiFENesin [Mucinex] 600 mg PO DAILY 01/16/18 01/16/18 History Allergies Allergy/AdvReac Type Severity Reaction Status Date / Time morphine AdvReac BRADYCARDIC Verified 01/16/18 17:24 Physical Exam Vitals: Vital Signs Temp Pulse Pulse Resp BP BP Pulse Ox 01/17/18 10:57 98.2 F 01/17/18 09:00 72 18 117/74 01/17/18 08:00 72 16 122/79 01/17/18 07:01 71 14 107/76 01/17/18 06:00 62 14 107/76 01/17/18 05:00 67 15 118/66 01/17/18 04:00 98 F 65 14 100/69 96 01/17/18 03:00 67 15 93/77 01/17/18 02:00 98.1 F 67 14 102/62 01/17/18 01:00 70 13 102/76 98 01/17/18 00:00 66 14 109/71 97 Intake and Output 01/17/18 01/17/18 01/18/18 14:59 22:59 06:59 Intake Total 1375 640 Output Total 0 Balance 1375 640 Intake: IV 850 640 Piperacillin-Tazobactam 3 125 100 .375 gm In Sodium Chloride 0.9% 100 ml @ 25 mls/hr IVPB ONCE [facility] Rx# :[id number] Sodium Chloride 0.9% 1, 225 40 000 ml @ 20 mls/hr IV . Q24H [facility] Rx#:[id number] Vancomycin 1,750 mg In 500 500 Sodium Chloride 0.9% 500 ml 500 ml @ 167 mls/hr IVPB Q12HR [facility] Rx#: [id number] Oral 525 Output: Urine 0 On physical examination, patient appears comfortable in no apparent distress. HEAD: Normocephalic, atraumatic. EYES: No scleral icterus. No conjunctival injection. MOUTH: No lesions, tongue midline. NECK: Trachea midline, no gross abnormalities. CHEST: Clear to auscultation with no wheezing or rhonchi appreciated. HEART: Regular rate and rhythm. ABDOMEN: Soft, obese. Bowel sounds are positive. No organomegaly. No guarding or rigidity. EXTREMITIES: No pedal edema. SKIN: No rashes, no jaundice. NEUROLOGIC: Alert and oriented x3. No focal deficits. Results CBC & Chem 7: 01/17/18 04:45 01/17/18 04:45 Labs: Abnormal Lab Results - Last 24 Hours (Table) 01/17/18 01/17/18 Range/Units 04:45 04:45 RBC 3.02 L (4.30-5.90) m/uL Hgb 10.6 L (13.0-17.5) gm/dL Hct 31.9 L (39.0-53.0) % MCV 105.6 H (80.0-100.0) fL MCH 35.1 H (25.0-35.0) pg RDW 17.1 H (11.5-15.5) % Lymphocytes # 0.6 L (1.0-4.8) k/uL Sodium 135 L (137-145) mmol/L Glucose 111 H (74-99) mg/dL AST 15 L (17-59) U/L Total Protein 4.8 L (6.3-8.2) g/dL Albumin 2.5 L (3.5-5.0) g/dL Microbiology - Last 24 Hours (Table) 01/16/18 17:02 Blood Culture - Preliminary Blood No Growth after 24 hours 01/16/18 Unknown Urine Culture - Final Urine,Voided Abdominal x-ray: report reviewed (x-ray of the abdomen which showed postsurgical changes as well as a duodenal and biliary stent.) Assessment and Plan Assessment: 1. Pancreatic cancer with metastases to the liver. Currently on chemotherapy. 2. 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 Patient is status post duodenal stent placement. 3. Diarrhea. Resolved. Likely secondary to laxative use in the setting of medication-induced constipation. Plan: Supportive care Okay for diet Continue Protonix If diarrhea recurs consider stool studies Monitor hemoglobin and liver enzymes Thank you for allowing us to participate in the care of this patient we will continue to follow
--- NOTE | 2018-01-17 23:39 | P.CONS ---
History of Present Illness - Reason for Consult Consult date: 01/17/18 - Chief Complaint Fever and weakness - History of Present Illness 67-year-old male who has an extensive past medical history is noted infectious disease service from prior bouts of E. coli sepsis related to the obstruction of his biliary tract. 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 The patient does call in during her visit. She does relate that since the pleasure of lasting the patient he has been at [facility]. There is evidence of bilateral pulmonary emboli that were without much symptom is being treated with Elocon as. And he was seen at our facility EGD was performed because of his inability to eat and evidence of the duodenal obstruction was seen. Large amount of retained food material was removed and he was sent to [facility] for further intervention. He duodenal stent was placed in the patient's relates that biopsy showed evidence of scar tissue not active cancer. The patient was having difficulties with some constipation after his most recent round of chemotherapy. After many days and attempts for milk of magnesia and suppositories he was given some MiraLAX to take. The patient's was out of town and the patient actually developed diarrhea but continue to take the MiraLAX. By Wednesday was not feeling well. He had become quite weak and developed one temperature of 103. He became weak enough that he had difficulty getting off the toilet and constantly was transported to the emergency center. No significant further fevers were noted that he is evidence of significant electrolyte abnormalities from his profuse diarrhea and was admitted with the elevated lactic acid to the intensive care unit. With fluid resuscitation he is now had marked improvement. Because of the concerns for sepsis antibiotic therapy was initiated and infectious diseases consult was requested. Is a patient is doing considerably better at this time. Up and walking. Diarrhea is improved. Weakness is improved. Review of Systems With patient's recent illnesses he has had profound weight loss but has been able to put about 10 pounds back on since he is able to eat again. HEENT:Denies headache or acute visual change. Denies sinus or mouth discomforts. Denies neck stiffness or pain. Denies significant oral cavity pain. Denies difficulty on swallowing. Lungs: Denies significant shortness of breath, cough, sputum production, or hemoptysis. Cardiovascular: Denies significant shortness of breath, chest pain, chest wall pain, orthopnea, dyspnea on exertion, syncope Gastrointestinal: Profuse diarrhea has resolved. Musculoskeletal: denies significant myalgias or arthralgias. No new joint swelling. Denies new back pain. Skin: Denies new rash or lesions. No new ulcers or wounds are related.. Neuro: Denies headache or visual change. Denies any new onset weakness or difficulty with ambulation. Denies falls or seizures. Psychiatric:Denies anxiety or depression. Endocrine: Denies significant fatigue, denies significant weight loss or weight gain. 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 HX Sepsis. Hypothyroid. upper/lower bridges. CHEMO EVERY OTHER WEEK FOR 3 DAYS VIA POWER PORT. PE X2 11/01/17. History of Any Multi-Drug Resistant Organisms: None Reported Past Surgical History: Hernia Repair, Tonsillectomy Additional Past Surgical History / Comment(s): 1979 Lt Testicle, lymph nodes removed along spine. Right Inguinal Hernia Repair x3 with mesh. Hemorrhoidectomy (2011), Colonoscopy (Jan 2015), Titanium Stent in Pancreas (2015 @ [place]), Restent in 01/2016 ([facility]). ERCP'S. Power Port. duodenal stent for obstruction not malignant Past Anesthesia/Blood Transfusion Reactions: Previous Problems w/ Anesthesia Additional Past Anesthesia/Blood Transfusion Reaction / Comm: DIFFICULTY URINATING W/ HERNIA, HEMORRHOID SURGERIES. Past Psychological History: No Psychological Hx Reported Additional Psychological History / Comment(s): Pt resides with his spouse and son. There is a cat in the household. Pt is independent. 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 He lives at home with his and son. There is a cat in the home. No recent travel or service. Past Drug Use History: None Reported Additional Drug Use History / Comment(s): . - Past Family History Mother Family Medical History: Cancer Additional Family Medical History / Comment(s): Cancer x 3, lived until age 89. Sister(s) Family Medical History: Cancer Additional Family Medical History / Comment(s): Breast cancer. Brother(s) Family Medical History: Cancer Father Family Medical History: Cancer Additional Family Medical History / Comment(s): Colon/bladder cancer x 3, at 94 Medications and Allergies Home Medications and Allergies Comment(s): Current Medications Acetaminophen (Tylenol Tab) 650 mg PO Q6HR PRN PRN Reason: Mild Pain or Fever > 100.5 Last Admin: 01/16/18 20:47 Dose: 650 mg Apixaban (Eliquis) 5 mg PO BID [facility] Last Admin: 01/17/18 20:33 Dose: 5 mg Fluticasone Propionate (Flonase Nasal Braggs) 2 spray EA NOSTRIL DAILY [facility] Last Admin: 01/17/18 09:56 Dose: 2 spray Piperacillin Sod/Tazobactam (Sod 3.375 gm/ Sodium Chloride) 100 mls @ 25 mls/ hr IVPB Q8H [facility] Last Admin: 01/17/18 20:32 Dose: 25 mls/hr Vancomycin HCl 1,750 mg/ (Sodium Chloride) 500 mls @ 167 mls/hr IVPB Q12HR [facility] Last Admin: 01/17/18 22:20 Dose: 167 mls/hr Sodium Chloride (Saline 0.9%) 1,000 mls @ 20 mls/hr IV .Q24H [facility] Last Admin: 01/17/18 22:24 Dose: 20 mls/hr Levothyroxine Sodium (Synthroid) 100 mcg PO DAILY@0630 [facility] Last Admin: 01/17/18 06:52 Dose: 100 mcg Miscellaneous Information (Pharmacy To Dose Iv Vancomycin) 1 each MISCELLANE DIRECTED PRN PRN Reason: Per Protocol Naloxone HCl (Narcan) 0.2 mg IV Q2M PRN PRN Reason: Opioid Reversal Nystatin (Mycostatin Oral Susp) 500,000 unit PO QID [facility] Last Admin: 01/17/18 22:20 Dose: 500,000 unit Pantoprazole Sodium (Protonix) 40 mg PO AC-BRKFST [facility] Last Admin: 01/17/18 06:52 Dose: 40 mg Ursodiol (Actigall) 300 mg PO BID [facility] Last Admin: 01/17/18 20:39 Dose: 300 mg Home Medications Medication Instructions Recorded Confirmed Type Docusate [Colace] 100 mg PO BID 11/19/15 01/16/18 History Fluticasone Nasal Braggs [Flonase 2 spray EA NOSTRIL DAILY 05/23/16 01/16/18 History Nasal Braggs] Ursodiol 300 mg PO BID 03/16/17 01/16/18 History Levothyroxine Sodium [Synthroid] 100 mcg PO DAILY 06/01/17 01/16/18 History Prochlorperazine [Compazine] 10 mg PO Q6H PRN 06/18/17 01/16/18 History Acetaminophen [Tylenol Extra 500 - 1,000 mg PO Q6H PRN 11/17/17 01/16/18 History Strength] Apixaban [Eliquis] 5 mg PO BID 11/17/17 01/16/18 History Pantoprazole Sodium [Protonix] 40 mg PO DAILY 11/17/17 01/16/18 History Nystatin 100,000 Unit/ml Susp 500,000 unit PO QID 01/16/18 01/16/18 History [Mycostatin Oral Susp] Polyethylene Glycol 3350 [Miralax] 17 gm PO DAILY 01/16/18 01/16/18 History guaiFENesin [Mucinex] 600 mg PO DAILY 01/16/18 01/16/18 History Allergies Allergy/AdvReac Type Severity Reaction Status Date / Time morphine AdvReac BRADYCARDIC Verified 01/16/18 17:24 Physical Exam Vitals: Vital Signs Temp Pulse Pulse Resp BP BP Pulse Ox 01/17/18 10:57 98.2 F 01/17/18 09:00 72 18 117/74 01/17/18 08:00 72 16 122/79 01/17/18 07:01 71 14 107/76 01/17/18 06:00 62 14 107/76 01/17/18 05:00 67 15 118/66 01/17/18 04:00 98 F 65 14 100/69 96 01/17/18 03:00 67 15 93/77 01/17/18 02:00 98.1 F 67 14 102/62 01/17/18 01:00 70 13 102/76 98 01/17/18 00:00 66 14 109/71 97 Intake and Output 01/17/18 01/17/18 01/18/18 14:59 22:59 06:59 Intake Total 1375 640 Output Total 0 Balance 1375 640 Intake: IV 850 640 Piperacillin-Tazobactam 3 125 100 .375 gm In Sodium Chloride 0.9% 100 ml @ 25 mls/hr IVPB ONCE [facility] Rx# :[id number] Sodium Chloride 0.9% 1, 225 40 000 ml @ 20 mls/hr IV . Q24H [facility] Rx#:[id number] Vancomycin 1,750 mg In 500 500 Sodium Chloride 0.9% 500 ml 500 ml @ 167 mls/hr IVPB Q12HR [facility] Rx#: [id number] Oral 525 Output: Urine 0 Pleasant 67-year-old male who is had approximate 40 pounds of weight loss over the last several months, has not been able to regain about 10 pounds with the release of his duodenal obstruction HEENT: Anicteric conjunctiva are pink and moist nasal mucosa grossly intact without significant lesions, there is no thrush. Neck: The neck is supple without significant lymphadenopathy or thyromegaly. Lungs: Good bilateral air entry without significant crackles or wheezing. There is no significant bronchial sounds. There is no egophony or dullness. Heart: Regular rate and rhythm with an audible S1-S2, no S3 no S4. There is no significant murmur click or rub, PMI was nondisplaced. Abdomen: Positive bowel sounds soft and nontender without palpable masses or organomegaly. There was no guarding or rebound. Extremities: The upper extremities have excellent pulses they are symmetric, no significant petechiae or telangiectasia. No splinter hemorrhages were noted. The lower extremities are free from significant edema. The peripheral pulses were 2+ and symmetric. Neuro: Awake alert oriented to person place and time. There are no acute new gross focal sensory motor deficits. Results CBC & Chem 7: 01/17/18 04:45 01/17/18 04:45 Labs: Abnormal Lab Results - Last 24 Hours (Table) 01/17/18 01/17/18 Range/Units 04:45 04:45 RBC 3.02 L (4.30-5.90) m/uL Hgb 10.6 L (13.0-17.5) gm/dL Hct 31.9 L (39.0-53.0) % MCV 105.6 H (80.0-100.0) fL MCH 35.1 H (25.0-35.0) pg RDW 17.1 H (11.5-15.5) % Lymphocytes # 0.6 L (1.0-4.8) k/uL Sodium 135 L (137-145) mmol/L Glucose 111 H (74-99) mg/dL AST 15 L (17-59) U/L Total Protein 4.8 L (6.3-8.2) g/dL Albumin 2.5 L (3.5-5.0) g/dL Microbiology - Last 24 Hours (Table) 01/16/18 17:02 Blood Culture - Preliminary Blood No Growth after 24 hours 01/16/18 Unknown Urine Culture - Final Urine,Voided Laboratory Results WBC 6.5 k/uL (3.8-10.6) 01/17/18 04:45 RBC 3.02 m/uL (4.30-5.90) L 01/17/18 04:45 Hgb 10.6 gm/dL (13.0-17.5) L 01/17/18 04:45 Hct 31.9 % (39.0-53.0) L 01/17/18 04:45 MCV 105.6 fL (80.0-100.0) H 01/17/18 04:45 MCH 35.1 pg (25.0-35.0) H 01/17/18 04:45 MCHC 33.3 g/dL (31.0-37.0) 01/17/18 04:45 RDW 17.1 % (11.5-15.5) H 01/17/18 04:45 Plt Count 313 k/uL (150-450) 01/17/18 04:45 Neutrophils % 81 % 01/17/18 04:45 Lymphocytes % 9 % 01/17/18 04:45 Monocytes % 4 % 01/17/18 04:45 Eosinophils % 5 % 01/17/18 04:45 Basophils % 1 % 01/17/18 04:45 Neutrophils # 5.2 k/uL (1.3-7.7) 01/17/18 04:45 Lymphocytes # 0.6 k/uL (1.0-4.8) L 01/17/18 04:45 Monocytes # 0.3 k/uL (0-1.0) 01/17/18 04:45 Eosinophils # 0.3 k/uL (0-0.7) 01/17/18 04:45 Basophils # 0.0 k/uL (0-0.2) 01/17/18 04:45 Anisocytosis Slight 01/17/18 04:45 Macrocytosis Moderate 01/17/18 04:45 Sodium 135 mmol/L (137-145) L 01/17/18 04:45 Potassium 4.3 mmol/L (3.5-5.1) 01/17/18 04:45 Chloride 107 mmol/L (98-107) 01/17/18 04:45 Carbon Dioxide 24 mmol/L (22-30) 01/17/18 04:45 Anion Gap 4 mmol/L 01/17/18 04:45 BUN 13 mg/dL (9-20) 01/17/18 04:45 Creatinine 0.77 mg/dL (0.66-1.25) 01/17/18 04:45 Est GFR (CKD-EPI)AfAm >90 (>60 ml/min/1.73 sqM) 01/17/18 04:45 Est GFR (CKD-EPI)NonAf >90 (>60 ml/min/1.73 sqM) 01/17/18 04:45 Glucose 111 mg/dL (74-99) H 01/17/18 04:45 POC Glucose (mg/dL) 120 mg/dL (75-99) H 01/16/18 23:03 POC Glu [employer] [place] 01/16/18 23:[address] Glu mg/dL 111 01/17/18 04:45 Hemoglobin A1c 5.5 % (4.0-6.0) 01/17/18 04:45 Lactic Ac Sepsis Rflx Y 01/16/18 18:01 Plasma Lactic Acid Paddy 1.4 mmol/L (0.7-2.0) 01/17/18 05:25 Calcium 8.6 mg/dL (8.4-10.2) 01/17/18 04:45 Phosphorus 3.8 mg/dL (2.5-4.5) 01/17/18 04:45 Magnesium 2.1 mg/dL (1.6-2.3) 01/17/18 04:45 Total Bilirubin 0.4 mg/dL (0.2-1.3) 01/17/18 04:45 AST 15 U/L (17-59) L 01/17/18 04:45 ALT 26 U/L (21-72) 01/17/18 04:45 Alkaline Phosphatase 51 U/L (38-126) 01/17/18 04:45 Total Protein 4.8 g/dL (6.3-8.2) L 01/17/18 04:45 Albumin 2.5 g/dL (3.5-5.0) L 01/17/18 04:45 Urine Color Yellow 01/16/18 Unknown Urine Appearance Clear (Clear) 01/16/18 Unknown Urine pH 6.0 (5.0-8.0) 01/16/18 Unknown Ur Specific [place] 1.016 (1.001-1.035) 01/16/18 Unknown Urine Protein Negative (Negative) 01/16/18 Unknown Urine Glucose (UA) Negative (Negative) 01/16/18 Unknown Urine Ketones Negative (Negative) 01/16/18 Unknown Urine Blood Negative (Negative) 01/16/18 Unknown Urine Nitrite Negative (Negative) 01/16/18 Unknown Urine Bilirubin Negative (Negative) 01/16/18 Unknown Urine Urobilinogen 3.0 mg/dL (<2.0) 01/16/18 Unknown Ur Leukocyte Esterase Negative (Negative) 01/16/18 Unknown Microbiology 01/16/18 17:02 Blood Blood Culture - Preliminary No Growth after 24 hours 01/16/18 Unknown Urine,Voided Urine Culture - Final Assessment and Plan (1) Diarrhea Narrative/Plan: 67-year-old male who is a very complex past medical history regarding his pancreatic based cancer with metastasis to liver. Receiving chemotherapy, with some reported improvement of the size of his liver metastasis. His recent history was positive for the obstruction of the duodenum that has been treated with dilatation and stent with improvement of his nutritional status. It is related that after his recent bout of chemotherapy he became constipated and despite several lesions did not have improvement and eventually was placed on MiraLAX. He was taking the dose couple times per day. His was out of town in the patient with a take the medication despite having developed a considerable amount of diarrhea. He then became acutely ill with dehydration and transient fever transient lactic acidosis was admitted to hospital. With hydration he has had general improvement of his status. Antibiotic therapy was started with concerns to the elevated lactic acid. However this could've been the basis of the acute dehydration, complicated by has active cancer and chemotherapy. Fortunately this time he is much improved. If in the morning he remains well without fever ,continues to do well with eating ,will then plan discontinuation of antibiotic therapy. Current Visit: Yes Status: Acute Code(s): R19.7 - DIARRHEA, UNSPECIFIED SNOMED Code(s): 16239238
[2018-01-18 01:10] VITALS: PULSE 67
[2018-01-18] MEDS: PIPERACILLIN-TAZOBACTAM 3.375 GM in SODIUM CHLORIDE 0.9% 100 ML IVPB SCH (03:03)
[2018-01-18] MEDS: LEVOTHYROXINE 100 MCG TAB PO SCH (06:28)
[2018-01-18] MEDS: PANTOPRAZOLE 40 MG TABLET PO SCH (06:29)
[2018-01-18] MEDS: FLUTICASONE 50MCG/SPRAY NASAL 16GM EA NOSTRIL SCH (07:32)
[2018-01-18] MEDS: APIXABAN 5 MG TAB PO SCH (07:32)
[2018-01-18] MEDS: NYSTATIN 100,000 UNIT/ML SUSP 500,000 UNIT/5 ML CUP PO SCH ×3 (07:32→17:23)
[2018-01-18] MEDS: URSODIOL 300 MG CAP PO SCH (07:32)
[2018-01-18] MEDS: VANCOMYCIN 1,750 MG in SODIUM CHLORIDE 0.9% 500 ML 500 ML IVPB SCH (08:41)
--- NOTE | 2018-01-18 10:14 | P.PN ---
Subjective Progress Note Date: 01/18/18 Principal diagnosis: Diarrhea with febrile illness, ruled out sepsis This is a very pleasant 67-year-old gentleman who follows with Dr. Styles as his primary care physician. He has a remote history of testicular cancer status post left-sided orchiectomy in 1979, hypothyroidism, pulmonary embolism, gastroesophageal reflux disease. 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 He has had titanium stents placed in the pancreas, duodenal and biliary duct. The patient had recently had issues with vomiting and had undergone EGD by Dr. 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 There was retained food in the stomach suggestive of gastric outlet obstruction. There is multiple erosions or ulcerations involving the entire esophagus consistent with severe reflux esophagitis. The patient was referred to [facility] and had undergone off label use of the duodenal stent. He is anticoagulated with Eliquis. Computed tomography scan of the abdomen from 01/03 revealed interval dilatation of the pancreatic duct that extends to the biliary stent. Also showed improved irregular hepatic mass which is small in size compared to previous. The patient is currently receiving chemotherapy. The patient presented here yesterday with complaints of initially constipation and took some MiraLAX at home and then developed significant diarrhea. He also had developed a fever and sweats and a temperature of 103. Urine culture is pending. He is seen today in consultation in the intensive care unit. He is currently resting quite comfortably in bed. He denies any worsening shortness of breath, cough or congestion. He is currently afebrile. He is maintaining good O2 saturations in the mid 90s on room air. Hemodynamically stable. He did not require any pressor support. He has a 0.9 normal saline at 35 ML's per hour. He did receive a total of 2.5 L of fluid resuscitation. Abdominal x-ray reveals extensive postsurgical changes at the central abdomen, biliary stent, duodenal stent. Nonobstructive bowel gas pattern. No pneumoperitoneum. He has been initiated on vancomycin and Zosyn. White count 6.5. Hemoglobin 10.6. Platelet count 313,000. Creatinine 0.77. On 01/18/2018 patient seen in follow-up in the intensive care unit, is calm and comfortable, in no acute distress, no further diarrhea, vital signs are stable, stable, afebrile. Cultures remain negative thus far. He is on room air pulse ox of 96%, lung sounds are clear, no nausea, no vomiting, no diarrhea, no abdominal pain. His labs have been reviewed, WBC 6.5, hemoglobin is 10.6, sodium is 135, and the rest of her electrolytes and renal profile were within normal limits. LFTs are unremarkable. Urinalysis was negative. Has been ambulating, and tolerating activity well. Anticipated for discharge today. Objective - Vital Signs Vital signs: Vital Signs Temp 98.2 F 01/17/18 10:57 Pulse 67 01/18/18 00:00 Resp 18 01/17/18 09:00 BP 117/74 01/17/18 09:00 Pulse Ox 96 01/17/18 04:00 Intake & Output 01/17/18 01/18/18 01/18/18 18:59 06:59 18:59 Intake Total 2014 100 1360 Output Total 0 0 Balance 2014 100 1360 Weight 79.2 kg Intake: IV 1490 0 740 Piperacillin-Tazobactam 3 225 .375 gm In Sodium Chloride 0.9% 100 ml @ 25 mls/hr IVPB ONCE [facility] Rx# :[id number] Piperacillin-Tazobactam 3 100 .375 gm In Sodium Chloride 0.9% 100 ml @ 25 mls/hr IVPB Q8H [facility] Rx#: [id number] Sodium Chloride 0.9% 1, 265 0 140 000 ml @ 20 mls/hr IV . Q24H [facility] Rx#:[id number] Vancomycin 1,750 mg In 1000 500 Sodium Chloride 0.9% 500 ml 500 ml @ 167 mls/hr IVPB Q12HR [facility] Rx#: [id number] Intake, IV Titration 100 Amount Piperacillin-Tazobactam 3 100 .375 gm In Sodium Chloride 0.9% 100 ml @ 25 mls/hr IVPB Q8H [facility] Rx#: [id number] Oral 525 620 Output: Urine 0 0 Other: # Voids 1 2 - Exam GENERAL EXAM: Alert, active, comfortable in no apparent distress. HEAD: Normocephalic. EYES: Normal reaction of pupils, equal size. NOSE: Clear with pink turbinates. THROAT: No erythema or exudates. NECK: No masses, no JVD. CHEST: No chest wall deformity. LUNGS: Equal air entry with no crackles, wheeze, rhonchi or dullness. CVS: S1 and S2 normal with no audible murmur, regular rhythm. ABDOMEN: No hepatosplenomegaly, normal bowel sounds, no guarding or rigidity. SPINE: No scoliosis or deformity SKIN: No rashes CENTRAL NERVOUS SYSTEM: No focal deficits, tone is normal in all 4 extremities. EXTREMITIES: There is no peripheral edema. No clubbing, no cyanosis. Peripheral pulses are intact. - Labs CBC & Chem 7: 01/17/18 04:45 01/17/18 04:45 Labs: Microbiology - Last 24 Hours (Table) 01/16/18 17:02 Blood Culture - Preliminary Blood No Growth after 24 hours 01/16/18 Unknown Urine Culture - Final Urine,Voided Assessment and Plan Plan: Assessment: #1 Diarrhea with febrile illness, sepsis ruled out #2 Immunocompromised secondary to chemotherapy for advanced stage IV pancreatic cancer with liver metastasis. Previous biliary and pancreatic stent placements. #3 Recent episode of nausea and vomiting secondary to duodenal stenosis, status post stent placement. #4 History of pulmonary embolism, currently anticoagulated with Eliquis. #5 Hypothyroidism. #6 History of testicular cancer back in 1979 status post left orchiectomy. Plan: Patient remains stable, his diarrhea has resolved, he is afebrile, cultures are negative, hemodynamically stable. No abdominal pain, no difficulty breathing, no chest pain. He is anticipated for discharge today, on very/critical care perspective patient is stable for discharge home. ID service consultation was noted, patient has been afebrile, cultures have been negative, we'll discontinue Zosyn and vancomycin. I performed a history & physical examination of the patient and discussed their management with my nurse practitioner, Elisa Cardenas. I reviewed the nurse practitioner's note and agree with the documented findings and plan of care. Lung sounds are clear. The findings and the impression was discussed with the patient. I attest to the documentation by the nurse practitioner. Time with Patient: Less than 30
[2018-01-18 12:04] LABS: Anisocytosis Slight; Basophils % (A) 1 %; Eosinophils # (A) 0.2 k/uL (0-0.7); Eosinophils % (A) 5 %; HCT 32.1 % (39.0-53.0); HGB 10.9 gm/dL (13.0-17.5); Lymphocytes # (A) 0.4 k/uL (1.0-4.8); Lymphocytes % (A) 9 %; MCH 35.1 pg (25.0-35.0); MCHC 33.9 g/dL (31.0-37.0); MCV 103.4 fL (80.0-100.0); Macrocytosis Moderate; Mean Platelet Volume 6.5; Monocytes # (A) 0.3 k/uL (0-1.0); Monocytes % (A) 7 %; Neutrophils # (A) 2.9 k/uL (1.3-7.7); Neutrophils % (A) 76 %; Platelet Count 294 k/uL (150-450); RBC 3.11 m/uL (4.30-5.90); RDW 16.6 % (11.5-15.5); WBC 3.8 k/uL (3.8-10.6)
[2018-01-18 12:13] LABS: ALT 28 U/L (21-72); AST 14 U/L (17-59); Albumin 2.7 g/dL (3.5-5.0); Alkaline Phosphatase 47 U/L (38-126); Anion Gap 4 mmol/L; Blood Urea Nitrogen 9 mg/dL (9-20); Calcium 8.5 mg/dL (8.4-10.2); Carbon Dioxide 24 mmol/L (22-30); Chloride 108 mmol/L (98-107); Glucose 106 mg/dL (74-99); Magnesium 1.9 mg/dL (1.6-2.3); Phosphorus 2.6 mg/dL (2.5-4.5); Potassium 3.8 mmol/L (3.5-5.1); Sodium 136 mmol/L (137-145); Total Bilirubin 0.3 mg/dL (0.2-1.3); Total Protein 5.1 g/dL (6.3-8.2)
[2018-01-18] MEDS ORDERED: VANCOMYCIN TROUGH DUE 1 EACH MISC MISCELLANE ONE (20:00)
--- NOTE | 2018-01-18 20:15 | P.PN ---
Subjective Progress Note Date: 01/18/18 67-year-old male who has an extensive past medical history is noted infectious disease service from prior bouts of E. coli sepsis related to the obstruction of his biliary tract. 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 The patient does call in during her visit. She does relate that since the pleasure of lasting the patient he has been at [facility]. There is evidence of bilateral pulmonary emboli that were without much symptom is being treated with Elocon as. And he was seen at our facility EGD was performed because of his inability to eat and evidence of the duodenal obstruction was seen. Large amount of retained food material was removed and he was sent to [facility] for further intervention. He duodenal stent was placed in the patient's relates that biopsy showed evidence of scar tissue not active cancer. The patient was having difficulties with some constipation after his most recent round of chemotherapy. After many days and attempts for milk of magnesia and suppositories he was given some MiraLAX to take. The patient's was out of town and the patient actually developed diarrhea but continue to take the MiraLAX. By Wednesday was not feeling well. He had become quite weak and developed one temperature of 103. He became weak enough that he had difficulty getting off the toilet and constantly was transported to the emergency center. No significant further fevers were noted that he is evidence of significant electrolyte abnormalities from his profuse diarrhea and was admitted with the elevated lactic acid to the intensive care unit. With fluid resuscitation he is now had marked improvement. Because of the concerns for sepsis antibiotic therapy was initiated and infectious diseases consult was requested. Is a patient is doing considerably better at this time. Up and walking. Diarrhea is improved. Weakness is improved. 01/18/2018 patient is now feeling considerably better. He is eating well throughout the day without significant nausea or emesis. Strength is improved. Abdominal pain is without difficulty at this time. No fevers or chills and overall feels considerably better. He's had no further diarrhea he's had no melena or hematemesis or hematochezia Objective - Vital Signs Vital signs: Vital Signs Temp 98.2 F 01/17/18 10:57 Pulse 67 01/18/18 00:00 Resp 18 01/17/18 09:00 BP 117/74 01/17/18 09:00 Pulse Ox 96 01/17/18 04:00 Intake & Output 01/18/18 01/18/18 01/19/18 06:59 18:59 06:59 Intake Total 100 2000 Output Total 0 Balance 100 1999 Weight 79.2 kg Intake: IV 0 880 Piperacillin-Tazobactam 3 100 .375 gm In Sodium Chloride 0.9% 100 ml @ 25 mls/hr IVPB Q8H MAGDY Rx#: [id number] Sodium Chloride 0.9% 1, 0 280 000 ml @ 20 mls/hr IV . Q24H MAGDY Rx#:[id number] Vancomycin 1,750 mg In 500 Sodium Chloride 0.9% 500 ml 500 ml @ 167 mls/hr IVPB Q12HR MAGDY Rx#: [id number] Intake, IV Titration 100 Amount Piperacillin-Tazobactam 3 100 .375 gm In Sodium Chloride 0.9% 100 ml @ 25 mls/hr IVPB Q8H MAGDY Rx#: [id number] Oral 1120 Output: Urine 0 Other: # Voids 1 4 - Exam Pleasant 67-year-old male who is had approximate 40 pounds of weight loss over the last several months, has not been able to regain about 10 pounds with the release of his duodenal obstruction HEENT: Anicteric conjunctiva are pink and moist nasal mucosa grossly intact without significant lesions, there is no thrush. Neck: The neck is supple without significant lymphadenopathy or thyromegaly. Lungs: Good bilateral air entry without significant crackles or wheezing. There is no significant bronchial sounds. There is no egophony or dullness. Heart: Regular rate and rhythm with an audible S1-S2, no S3 no S4. There is no significant murmur click or rub, PMI was nondisplaced. Abdomen: Positive bowel sounds soft and nontender without palpable masses or organomegaly. There was no guarding or rebound. Extremities: The upper extremities have excellent pulses they are symmetric, no significant petechiae or telangiectasia. No splinter hemorrhages were noted. The lower extremities are free from significant edema. The peripheral pulses were 2+ and symmetric. Neuro: Awake alert oriented to person place and time. There are no acute new gross focal sensory motor deficits. - Labs CBC & Chem 7: 01/18/18 11:45 01/18/18 11:45 Labs: Abnormal Lab Results - Last 24 Hours (Table) 01/18/18 01/18/18 01/18/18 Range/Units 11:45 11:45 11:45 RBC 3.11 L (4.30-5.90) m/uL Hgb 10.9 L (13.0-17.5) gm/dL Hct 32.1 L (39.0-53.0) % MCV 103.4 H (80.0-100.0) fL MCH 35.1 H (25.0-35.0) pg RDW 16.6 H (11.5-15.5) % Lymphocytes # 0.4 L (1.0-4.8) k/uL Sodium 136 L (137-145) mmol/L Chloride 108 H (98-107) mmol/L Glucose 106 H (74-99) mg/dL AST 14 L (17-59) U/L Total Protein 5.1 L (6.3-8.2) g/dL Albumin 2.7 L (3.5-5.0) g/dL Vancomycin Trough 54.3 H* ug/mL Microbiology - Last 24 Hours (Table) 01/16/18 17:02 Blood Culture - Preliminary Blood No Growth after 48 hours 01/16/18 Unknown Urine Culture - Final Urine,Voided Laboratory Results WBC 3.8 k/uL (3.8-10.6) 01/18/18 11:45 RBC 3.11 m/uL (4.30-5.90) L 01/18/18 11:45 Hgb 10.9 gm/dL (13.0-17.5) L 01/18/18 11:45 Hct 32.1 % (39.0-53.0) L 01/18/18 11:45 MCV 103.4 fL (80.0-100.0) H 01/18/18 11:45 MCH 35.1 pg (25.0-35.0) H 01/18/18 11:45 MCHC 33.9 g/dL (31.0-37.0) 01/18/18 11:45 RDW 16.6 % (11.5-15.5) H 01/18/18 11:45 Plt Count 294 k/uL (150-450) 01/18/18 11:45 Neutrophils % 76 % 01/18/18 11:45 Lymphocytes % 9 % 01/18/18 11:45 Monocytes % 7 % 01/18/18 11:45 Eosinophils % 5 % 01/18/18 11:45 Basophils % 1 % 01/18/18 11:45 Neutrophils # 2.9 k/uL (1.3-7.7) 01/18/18 11:45 Lymphocytes # 0.4 k/uL (1.0-4.8) L 01/18/18 11:45 Monocytes # 0.3 k/uL (0-1.0) 01/18/18 11:45 Eosinophils # 0.2 k/uL (0-0.7) 01/18/18 11:45 Basophils # 0.0 k/uL (0-0.2) 01/18/18 11:45 Anisocytosis Slight 01/18/18 11:45 Macrocytosis Moderate 01/18/18 11:45 Sodium 136 mmol/L (137-145) L 01/18/18 11:45 Potassium 3.8 mmol/L (3.5-5.1) 01/18/18 11:45 Chloride 108 mmol/L (98-107) H 01/18/18 11:45 Carbon Dioxide 24 mmol/L (22-30) 01/18/18 11:45 Anion Gap 4 mmol/L 01/18/18 11:45 BUN 9 mg/dL (9-20) 01/18/18 11:45 Creatinine 0.70 mg/dL (0.66-1.25) 01/18/18 11:45 Est GFR (CKD-EPI)AfAm >90 (>60 ml/min/1.73 sqM) 01/18/18 11:45 Est GFR (CKD-EPI)NonAf >90 (>60 ml/min/1.73 sqM) 01/18/18 11:45 Glucose 106 mg/dL (74-99) H 01/18/18 11:45 POC Glucose (mg/dL) 120 mg/dL (75-99) H 01/16/18 23:03 POC Glu P[employer] [place] 01/16/18 23:[address] Glu mg/dL 111 01/17/18 04:45 Hemoglobin A1c 5.5 % (4.0-6.0) 01/17/18 04:45 Lactic Ac Sepsis Rflx Y 01/16/18 18:01 Plasma Lactic Acid Paddy 1.4 mmol/L (0.7-2.0) 01/17/18 05:25 Calcium 8.5 mg/dL (8.4-10.2) 01/18/18 11:45 Phosphorus 2.6 mg/dL (2.5-4.5) 01/18/18 11:45 Magnesium 1.9 mg/dL (1.6-2.3) 01/18/18 11:45 Total Bilirubin 0.3 mg/dL (0.2-1.3) 01/18/18 11:45 AST 14 U/L (17-59) L 01/18/18 11:45 ALT 28 U/L (21-72) 01/18/18 11:45 Alkaline Phosphatase 47 U/L (38-126) 01/18/18 11:45 Total Protein 5.1 g/dL (6.3-8.2) L 01/18/18 11:45 Albumin 2.7 g/dL (3.5-5.0) L 01/18/18 11:45 Urine Color Yellow 01/16/18 Unknown Urine Appearance Clear (Clear) 01/16/18 Unknown Urine pH 6.0 (5.0-8.0) 01/16/18 Unknown Ur Specific [place] 1.016 (1.001-1.035) 01/16/18 Unknown Urine Protein Negative (Negative) 01/16/18 Unknown Urine Glucose (UA) Negative (Negative) 01/16/18 Unknown Urine Ketones Negative (Negative) 01/16/18 Unknown Urine Blood Negative (Negative) 01/16/18 Unknown Urine Nitrite Negative (Negative) 01/16/18 Unknown Urine Bilirubin Negative (Negative) 01/16/18 Unknown Urine Urobilinogen 3.0 mg/dL (<2.0) 01/16/18 Unknown Ur Leukocyte Esterase Negative (Negative) 01/16/18 Unknown Vancomycin Trough 54.3 ug/mL H* 01/18/18 11:45 Microbiology 01/16/18 17:02 Blood Blood Culture - Preliminary No Growth after 48 hours 01/16/18 Unknown Urine,Voided Urine Culture - Final Assessment and Plan (1) Diarrhea Narrative/Plan: 67-year-old male who is a very complex past medical history regarding his pancreatic based cancer with metastasis to liver. Receiving chemotherapy, with some reported improvement of the size of his liver metastasis. His recent history was positive for the obstruction of the duodenum that has been treated with dilatation and stent with improvement of his nutritional status. It is related that after his recent bout of chemotherapy he became constipated and despite several lesions did not have improvement and eventually was placed on MiraLAX. He was taking the dose couple times per day. His was out of town in the patient with a take the medication despite having developed a considerable amount of diarrhea. He then became acutely ill with dehydration and transient fever transient lactic acidosis was admitted to hospital. With hydration he has had general improvement of his status. Antibiotic therapy was started with concerns to the elevated lactic acid. However this could've been the basis of the acute dehydration, complicated by has active cancer and chemotherapy. Fortunately this time he is much improved. If in the morning he remains well without fever ,continues to do well with eating ,will then plan discontinuation of antibiotic therapy. 01/18/2018 patient feels considerably better. Diarrhea is resolved. Dehydration is resolved. He is eating and drinking without difficulties. He's had no further fevers. Urine blood cultures are negative. At this time antibiotic status continued and I believe patient can be discharged home with close follow-up with his oncologist and primary care physician. Status: Acute Code(s): R19.7 - DIARRHEA, UNSPECIFIED SNOMED Code(s): 18605025
--- NOTE | 2018-01-19 01:38 | DS ---
DISCHARGE SUMMARY FINAL DIAGNOSES: 1. Diarrhea, sepsis ruled out. 2. Possible gastroenteritis. 3. Anemia macrocytic. 4. Hyponatremia. 5. Elevated plasma lactic acid, improved. 6. 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 7. History of cholangitis and sepsis previously. 8. History of duodenal stenosis and stent placement in [facility] recently. 9. Hypothyroidism. 10.Multiple episodes of cholangitis. 11.History of pulmonary embolus. 12.History of testicular cancer. 13.History of metastasis of the liver. 14.FULL CODE. DISCHARGE DISPOSITION: Patient is being discharged in stable condition with guarded prognosis. HISTORY OF PRESENT ILLNESS: This 67 -year-old gentleman with past medical history of multiple medical problems was admitted to the hospital with diarrhea and multiple other medical issues. Treated symptomatically. Empiric antibiotics were given. However, cultures are negative. Dr. Spivey and Dr. Nugent recommend the patient be discharged home. On exam, vital signs are stable. Cardio system: S1, S2. Abdomen soft. Central nervous system: No focal deficits. White count is normal and sodium 136, potassium 3.8. The patient is being discharged in stable condition, guarded prognosis. DISCHARGE ADVICE AND MEDICATIONS: 1. Diet is cardiac diet. 2. Activity limited utnil followup. 3. Follow up with Dr. Styles in 2-3 days. 4. Follow up with up with ID, gastroenterology Oncology as advised. Medications are as follows: 1. Tylenol p.r.n. 2. Eliquis 5 mg p.o. b.i.d. 3. Colace 100 mg p.o. b.i.d. p.r.n. 4. Flonase 2 sprays daily. 5. Mucinex 600 mg p.o. 6. Synthroid 100 mcg p.o. daily. 7. Mycostatin 500 mg q.i.d. 8. Protonix 40 mg. 9. MiraLAX 17 g daily. 10.Compazine 10 mg q.6 hours. 11.Isordil 300 mg p.o. b.i.d. p.r.n. Once again, the patient is being discharged in stable condition with guarded prognosis. MMODL / IJN: [id number] /
== END 2018-01-18 17:58 | disposition home or self-care (01) | DRG 392 ==
LOC: EC 16:28 → 2SICU 18:42
PROVIDERS: ADMIT Hospitalist; ATTEND Hospitalist
DX: K52.9 Noninfective gastroenteritis and colitis, unspecified (principal); C78.7 Secondary malignant neoplasm of liver and intrahepatic bile duct; E87.1 Hypo-osmolality and hyponatremia; C25.3 Malignant neoplasm of pancreatic duct; C24.1 Malignant neoplasm of ampulla of Vater; E87.2 Acidosis; D53.9 Nutritional anemia, unspecified; E86.0 Dehydration; K21.0 Gastro-esophageal reflux disease with esophagitis; E03.9 Hypothyroidism, unspecified; Z79.899 Other long term (current) drug therapy; Z79.01 Long term (current) use of anticoagulants; Z79.890 Hormone replacement therapy; Z88.5 Allergy status to narcotic agent; Z86.711 Personal history of pulmonary embolism; Z92.21 Personal history of antineoplastic chemotherapy; Z85.47 Personal history of malignant neoplasm of testis; Z80.3 Family history of malignant neoplasm of breast; Z90.79 Acquired absence of other genital organ(s); Z80.52 Family history of malignant neoplasm of bladder; Z85.038 Personal history of other malignant neoplasm of large intestine; Z86.19 Personal history of other infectious and parasitic diseases
CPT/HCPCS: 36415; 71045; 74019; 80053; 80202; 81003; 83036; 83605; 83735; 84100; 85025; 87040; 87086; 96361; 96365; 96366; 99285

== ENCOUNTER 2018-01-31 15:30 | Inpatient (IN) | payer OTHER, MEDICARE, BC ==
[2018-01-31] MEDS ORDERED: ACETAMINOPHEN IV (For NPO) 1,000 MG in EMPTY BAG 1 BAG IVPB STA (16:26)
--- NOTE | 2018-01-31 16:48 | ED ---
General Adult HPI <Anthony Harrington - Last Filed: 01/31/18 18:56> - General Source: patient, RN notes reviewed Mode of arrival: ambulatory Limitations: no limitations <John Moore - Last Filed: 01/31/18 19:27> - General Chief complaint: Abdominal Pain Stated complaint: Fever, possible Sepsis, NVD, CA PT Time Seen by Provider: 01/31/18 16:07 - History of Present Illness Initial comments: 67-year-old male presents to the emergency department for a chief complaint of fever. Patient had a grade fever 3 days ago at home. He had a temperature of 100.8 today at his doctor's office. Patient has a history of pancreatic cancer stage IV diagnosed in 2016. He last received chemotherapy for 3 days ending about 5 days ago. Patient has a history of bowel obstruction and currently has a duodenal stent placed. Patient states he has been nauseous and having abdominal pain that is consistent with previous obstruction. He also had a biliary stent that was removed which has caused scarring. Patient's total bilirubin has increased by 1 according to patient in the past day which is concerning to the patient. He was recently admitted for sepsis. Patient has no other complaints at this time including shortness of breath, chest pain, headache, or visual changes. (John Moore) - Related Data Home Medications Medication Instructions Recorded Confirmed Fluticasone Nasal [place] [Flonase 2 spray EA NOSTRIL DAILY 05/23/16 01/31/18 Nasal [place]] Ursodiol 300 mg PO BID 03/16/17 01/31/18 Levothyroxine Sodium [Synthroid] 100 mcg PO DAILY 06/01/17 01/31/18 Prochlorperazine [Compazine] 10 mg PO Q6H PRN 06/18/17 01/31/18 Acetaminophen [Tylenol Extra 500 - 1,000 mg PO Q6H PRN 11/17/17 01/31/18 Strength] Apixaban [Eliquis] 5 mg PO BID 11/17/17 01/31/18 Pantoprazole Sodium [Protonix] 40 mg PO DAILY 11/17/17 01/31/18 Nystatin 100,000 Unit/ml Susp 500,000 unit PO QID 01/16/18 01/31/18 [Mycostatin Oral Susp] guaiFENesin [Mucinex] 600 mg PO DAILY 01/16/18 01/31/18 Previous Rx's Medication Instructions Recorded Docusate [Colace] 100 mg PO BID PRN #1 01/18/18 Polyethylene Glycol 3350 [Miralax] 17 gm PO DAILY PRN #1 01/18/18 Allergies Allergy/AdvReac Type Severity Reaction Status Date / Time morphine AdvReac BRADYCARDIC Verified 01/31/18 15:42 Review of Systems ROS Other: All systems not noted in ROS Statement are negative. <Anthony Harrington - Last Filed: 01/31/18 18:56> ROS Other: All systems not noted in ROS Statement are negative. <John Moore - Last Filed: 01/31/18 19:27> ROS Statement: Those systems with pertinent positive or pertinent negative responses have been documented in the HPI. 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 HX Sepsis. Hypothyroid. upper/lower bridges. CHEMO EVERY OTHER WEEK FOR 3 DAYS VIA POWER PORT. PE X2 11/01/17. History of Any Multi-Drug Resistant Organisms: None Reported Past Surgical History: Hernia Repair, Tonsillectomy Additional Past Surgical History / Comment(s): 1979 Lt Testicle, lymph nodes removed along spine. Right Inguinal Hernia Repair x3 with mesh. Hemorrhoidectomy (2011), Colonoscopy (Jan 2015), Titanium Stent in Pancreas (2015 @ [place]), Restent in 01/2016 ([facility] [place]). ERCP'S. Power Port. 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 Past Psychological History: No Psychological Hx Reported Smoking Status: Never smoker Past Alcohol Use History: None Reported Past Drug Use History: None Reported - Past Family History Mother Family Medical History: Cancer Additional Family Medical History / Comment(s): Cancer x 3, lived until age 89. Sister(s) Family Medical History: Cancer Additional Family Medical History / Comment(s): Breast cancer. Brother(s) Family Medical History: Cancer Father Family Medical History: Cancer Additional Family Medical History / Comment(s): Colon/bladder cancer x 3, at 94 <John Moore - Last Filed: 01/31/18 19:27> General Exam Limitations: no limitations General appearance: alert, in no apparent distress Head exam: Present: atraumatic, normocephalic, normal inspection Eye exam: Present: normal appearance, PERRL, EOMI. Absent: scleral icterus, conjunctival injection, periorbital swelling ENT exam: Present: normal exam, mucous membranes moist Neck exam: Present: normal inspection, full ROM. Absent: tenderness, meningismus, lymphadenopathy Respiratory exam: Present: normal lung sounds bilaterally. Absent: respiratory distress, wheezes, rales, rhonchi, stridor Cardiovascular Exam: Present: regular rate, normal rhythm, normal heart sounds. Absent: systolic murmur, diastolic murmur, rubs, gallop, clicks GI/Abdominal exam: Present: soft, tenderness (Epigastric and Umbilical tenderness noted, no tenderness noted elsewhere in the abdomen.), normal bowel sounds. Absent: distended, guarding, rebound, rigid Neurological exam: Present: alert, oriented X3, CN II-XII intact Psychiatric exam: Present: normal affect, normal mood <John Moore P - Last Filed: 01/31/18 19:27> Vital Signs 01/31/18 01/31/18 01/31/18 15:35 17:17 17:52 Temperature 98.9 F 100.8 F H 98.7 F Pulse Rate 103 H 90 Respiratory 18 18 Rate Blood Pressure 131/93 128/72 O2 Sat by Pulse 98 100 Oximetry Medical Decision Making - Lab Data Result diagrams: 01/31/18 17:05 01/31/18 17:05 <Anthony Harrington - Last Filed: 01/31/18 18:56> - Lab Data Result diagrams: 01/31/18 17:05 01/31/18 17:05 <John Moore - Last Filed: 01/31/18 19:27> - Medical Decision Making Case was discussed with Dr. Larkin who was familiar with this patient. He did speak with both GI and Dr. Hernandes who wanted patient admitted and they will be placed on consult. He also recommends Merrem. (Anthony Harrington) 67-year-old male with a medical history of pancreatic cancer presents to the emergency department for a chief complaint of fever and abdominal pain. Temperature 100.8 here in the emergency department, patient has leukopenia with white count of 2.0 and is mildly tachycardic at 103. Meet surge criteria. Lactate was ordered which is 1.1. Blood cultures were drawn. Patient was started on fluids at 1 L, normotensive. Attempted to find source, chest x-ray negative, urine negative, CT shows biliary malfunction as well as enlarged mass in the pancreas, liver and enlarged lymph nodes compared to last computed tomography scan. Consulted with Dr. Larkin who recommended IV Merrem. Patient will be admitted with consult to oncology and GI (John Moore) - Lab Data Lab Results 01/31/18 01/31/18 01/31/18 Range/Units 17:05 17:05 17:05 WBC 2.0 L (3.8-10.6) k/uL RBC 5.25 (4.30-5.90) m/uL Hgb 18.2 H D (13.0-17.5) gm/dL Hct 53.5 H (39.0-53.0) % MCV 101.9 H (80.0-100.0) fL MCH 34.6 (25.0-35.0) pg MCHC 34.0 (31.0-37.0) g/dL RDW 15.6 H (11.5-15.5) % Plt Count 172 (150-450) k/uL Neutrophils % 76 % Lymphocytes % 9 % Monocytes % 9 % Eosinophils % 3 % Basophils % 1 % Neutrophils # 1.6 (1.3-7.7) k/uL Lymphocytes # 0.2 L (1.0-4.8) k/uL Monocytes # 0.2 (0-1.0) k/uL Eosinophils # 0.1 (0-0.7) k/uL Basophils # 0.0 (0-0.2) k/uL Macrocytosis Slight PT (9.0-12.0) sec INR (<1.2) APTT (22.0-30.0) sec Sodium 133 L (137-145) mmol/L Potassium 4.3 (3.5-5.1) mmol/L Chloride 102 (98-107) mmol/L Carbon Dioxide 24 (22-30) mmol/L Anion Gap 7 mmol/L BUN 15 (9-20) mg/dL Creatinine 0.69 (0.66-1.25) mg/dL Est GFR (CKD-EPI)AfAm >90 (>60 ml/min/1.73 sqM) Est GFR (CKD-EPI)NonAf >90 (>60 ml/min/1.73 sqM) Glucose 103 H (74-99) mg/dL Plasma Lactic Acid Paddy 1.1 (0.7-2.0) mmol/L Calcium 9.3 (8.4-10.2) mg/dL Total Bilirubin 1.1 (0.2-1.3) mg/dL AST 34 (17-59) U/L ALT 40 (21-72) U/L Alkaline Phosphatase 81 (38-126) U/L Total Protein 6.0 L (6.3-8.2) g/dL Albumin 3.4 L (3.5-5.0) g/dL Amylase 1509 H* (30-110) U/L Lipase 97263 H (23-300) U/L Urine Color Urine Appearance (Clear) Urine pH (5.0-8.0) Ur Specific [place] (1.001-1.035) Urine Protein (Negative) Urine Glucose (UA) (Negative) Urine Ketones (Negative) Urine Blood (Negative) Urine Nitrite (Negative) Urine Bilirubin (Negative) Urine Urobilinogen (<2.0) mg/dL Ur Leukocyte Esterase (Negative) Urine RBC (0-5) /hpf Urine WBC (0-5) /hpf Ur Squamous Epith Cells (0-4) /hpf Hyaline Casts (0-2) /lpf Urine Mucus (None) /hpf Influenza Type A RNA (Not Detectd) Influenza Type B (PCR) (Not Detectd) 01/31/18 01/31/18 01/31/18 Range/Units 17:05 17:05 18:05 WBC (3.8-10.6) k/uL RBC (4.30-5.90) m/uL Hgb (13.0-17.5) gm/dL Hct (39.0-53.0) % MCV (80.0-100.0) fL MCH (25.0-35.0) pg MCHC (31.0-37.0) g/dL RDW (11.5-15.5) % Plt Count (150-450) k/uL Neutrophils % % Lymphocytes % % Monocytes % % Eosinophils % % Basophils % % Neutrophils # (1.3-7.7) k/uL Lymphocytes # (1.0-4.8) k/uL Monocytes # (0-1.0) k/uL Eosinophils # (0-0.7) k/uL Basophils # (0-0.2) k/uL Macrocytosis PT 10.8 (9.0-12.0) sec INR 1.0 (<1.2) APTT 25.8 (22.0-30.0) sec Sodium (137-145) mmol/L Potassium (3.5-5.1) mmol/L Chloride (98-107) mmol/L Carbon Dioxide (22-30) mmol/L Anion Gap mmol/L BUN (9-20) mg/dL Creatinine (0.66-1.25) mg/dL Est GFR (CKD-EPI)AfAm (>60 ml/min/1.73 sqM) Est GFR (CKD-EPI)NonAf (>60 ml/min/1.73 sqM) Glucose (74-99) mg/dL Plasma Lactic Acid Paddy (0.7-2.0) mmol/L Calcium (8.4-10.2) mg/dL Total Bilirubin (0.2-1.3) mg/dL AST (17-59) U/L ALT (21-72) U/L Alkaline Phosphatase (38-126) U/L Total Protein (6.3-8.2) g/dL Albumin (3.5-5.0) g/dL Amylase (30-110) U/L Lipase (23-300) U/L Urine Color Yellow Urine Appearance Clear (Clear) Urine pH 6.5 (5.0-8.0) Ur Specific [place] 1.021 (1.001-1.035) Urine Protein 1+ H (Negative) Urine Glucose (UA) Negative (Negative) Urine Ketones Negative (Negative) Urine Blood Negative (Negative) Urine Nitrite Negative (Negative) Urine Bilirubin Negative (Negative) Urine Urobilinogen 3.0 (<2.0) mg/dL Ur Leukocyte Esterase Negative (Negative) Urine RBC 5 (0-5) /hpf Urine WBC 1 (0-5) /hpf Ur Squamous Epith Cells <1 (0-4) /hpf Hyaline Casts 1 (0-2) /lpf Urine Mucus Rare H (None) /hpf Influenza Type A RNA Not Detected (Not Detectd) Influenza Type B (PCR) Not Detected (Not Detectd) Disposition <Anthony Harrington - Last Filed: 01/31/18 18:56> Is patient prescribed a controlled substance at d/c from ED?: No Time of Disposition: 19:18 <John Moore - Last Filed: 01/31/18 19:27> Clinical Impression: Pancreatic cancer, Elevated amylase and lipase, Leukopenia, Sepsis Disposition: ADMITTED IP TO THIS HOSP Condition: Good Referrals: Shelby Styles MD [Primary Care Provider] - 1-2 days
[2018-01-31] MEDS: SODIUM CHLORIDE 0.9% 500 ML 500 ML IV SCH ×2 (17:26→17:30)
--- NOTE | 2018-01-31 17:27 | XR ---
EXAMINATION TYPE: XR chest 1V portable DATE OF EXAM: 01/31/2018 COMPARISON: 01/16/2018 HISTORY: Fever TECHNIQUE: Single frontal view of the chest is obtained. FINDINGS: There is no heart failure nor confluent pneumonic infiltrate. Costophrenic angles are akhil r. There is left side central venous catheter with the tip in the superior vena cava. There is elevat ed left diaphragm. There is slight blunting of left costophrenic angle. IMPRESSION: Elevated left diaphragm with mild pleural reaction or fluid at the lateral left lung bas e unchanged. Normal heart.
[2018-01-31 17:29] LABS: Basophils % (A) 1 %; Eosinophils # (A) 0.1 k/uL (0-0.7); Eosinophils % (A) 3 %; HCT 53.5 % (39.0-53.0); Lymphocytes # (A) 0.2 k/uL (1.0-4.8); Lymphocytes % (A) 9 %; MCH 34.6 pg (25.0-35.0); MCV 101.9 fL (80.0-100.0); Macrocytosis Slight; Mean Platelet Volume 6.4; Monocytes # (A) 0.2 k/uL (0-1.0); Monocytes % (A) 9 %; Neutrophils # (A) 1.6 k/uL (1.3-7.7); Neutrophils % (A) 76 %; Platelet Count 172 k/uL (150-450); RBC 5.25 m/uL (4.30-5.90); RDW 15.6 % (11.5-15.5)
[2018-01-31 17:36] LABS: HGB 18.2 gm/dL (13.0-17.5)
[2018-01-31 17:37] LABS: Partial Thromboplastin Time 25.8 sec (22.0-30.0); Prothrombin Time 10.8 sec (9.0-12.0)
[2018-01-31 17:42] LABS: ALT 40 U/L (21-72); AST 34 U/L (17-59); Albumin 3.4 g/dL (3.5-5.0); Alkaline Phosphatase 81 U/L (38-126); Anion Gap 7 mmol/L; Blood Urea Nitrogen 15 mg/dL (9-20); Calcium 9.3 mg/dL (8.4-10.2); Carbon Dioxide 24 mmol/L (22-30); Chloride 102 mmol/L (98-107); Glucose 103 mg/dL (74-99); Potassium 4.3 mmol/L (3.5-5.1); Sodium 133 mmol/L (137-145); Total Bilirubin 1.1 mg/dL (0.2-1.3)
[2018-01-31 17:51] LABS: Amylase 1509 U/L (30-110)
[2018-01-31 18:25] LABS: Lipase 14665 U/L (23-300)
[2018-01-31 18:30] LABS: Appearance,Urine Clear (Clear); Bilirubin,Urine Negative (Negative); Blood,Urine Negative (Negative); Color,Urine Yellow; Glucose,Urine (UA) Negative (Negative); Hyaline Casts,Urine 1 /lpf (0-2); Ketones,Urine Negative (Negative); Leukocyte Esterase,Urine Negative (Negative); Mucus,Urine Rare /hpf; Nitrite,Urine Negative (Negative); PH, Urine 6.5 (5.0-8.0); Protein,Urine 1+ (Negative); RBC,Urine 5 /hpf (0-5); Specific Gravity,Urine 1.021 (1.001-1.035); Squamous Epithelial Cell,Urine <1 /hpf (0-4); WBC,Urine 1 /hpf (0-5)
--- NOTE | 2018-01-31 18:32 | CT ---
EXAMINATION TYPE: CT abdomen pelvis w con DATE OF EXAM: 01/31/2018 COMPARISON: 01/03/2018 HISTORY: ABDOMINAL PAIN WITH VOMITING CT DLP: 890.6 mGycm Automated exposure control for dose reduction was used. TECHNIQUE: Helical acquisition of images was performed from the lung bases through the pelvis. CONTRAST: Performed without Oral Contrast and with IV Contrast, patient injected with 100 mL of Isovue 300. FINDINGS: There is no pleural effusion. Lung bases are clear of consolidation. There is minimal atelectasis at the left lung base. There is apparent stent in the second and third part of the duodenum. There is a biliary stent. There is mild ectasia of the intrahepatic bile ducts. Gallbladder has normal size and measures 3.8 cm. There is low-density mass in the posterior right lobe of the liver that measures 8.2 x 5.4 cm. This is increased slightly compared to old exam. There is enlargement of the pancreatic he ad. This measures 5.1 cm in maximum dimension and increased slightly compared to last exam. Head alyssa ures 4.5 cm on the old exam. There is mild dilation of the pancreatic duct. The intrahepatic bile hali ts appear increased slightly in size compared to last CT scan. Spleen appears normal. There is normal contrast opacification of the kidneys. There is no hydronephro sis. There are multiple retroperitoneal surgical clips. There is metal artifact. I see no retroperito kemal adenopathy. Bladder distends smoothly. There is prosthetic calcification. There is no inguinal h ernia. There is no free fluid in the pelvis. There is no evidence of a bowel obstruction. Lumbar vert ebra have normal alignment. There is narrowing of disc spaces in the mid lumbar spine. There is no co mpression fracture. I see no focal bone destruction. There is 2 x 1.4 cm enlarged hepatogastric lymph node. There is 1.3 cm enlarged small bowel mesenteric lymph node. IMPRESSION: THE INTRAHEPATIC BILE DUCTS APPEAR INCREASED COMPARED TO OLD CT SCAN THAT SUGGESTS STENT OBSTRUCTION AND MALFUNCTION. PANCREATIC HEAD MASS INCREASED SLIGHTLY IN SIZE COMPARED TO OLD EXAM. LARGE MASS IN THE LIVER INCREASED SLIGHTLY COMPARED TO OLD EXAM. THERE IS INCREASE IN THE LYMPH NODES ABOVE.
[2018-01-31] MEDS ORDERED: NALOXONE 0.4 MG/ML 1 ML VIAL IV PRN (19:07)
[2018-01-31] MEDS ORDERED: PROCHLORPERAZINE 10 MG TAB PO PRN (20:24)
[2018-01-31] MEDS: MEROPENEM 2 GM in SODIUM CHLORIDE 0.9% 100 ML IVPB SCH (21:47)
[2018-01-31] MEDS: NYSTATIN 100,000 UNIT/ML SUSP 500,000 UNIT/5 ML CUP PO SCH (21:48)
[2018-01-31] MEDS: SODIUM CHLORIDE 0.9% 1,000 ML IV SCH (21:50)
[2018-01-31] MEDS: HEPARIN SODIUM,PORCINE 5,000 UNIT/ML 1 ML VIAL SQ SCH (21:51)
[2018-01-31] MEDS: HYDROmorphone 1 MG/ML 1 ML SYRINGE IVP PRN (21:54)
--- NOTE | 2018-01-31 22:03 | HP ---
HISTORY AND PHYSICAL DATE OF SERVICE: 01/31/2018 CHIEF COMPLAINTS: Abdominal discomfort, vomiting and fever. 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 The patient had METS in the liver also. The patient is on chemotherapy. Recently patient admitted with diarrhea, sepsis ruled out. Patient improved significantly. Patient went home and currently the patient is complaining of fever and also abdominal discomfort. Patient apparently ate some chicken wings 3 days ago and subsequently patient developed abdominal discomfort. The temperature raghu up to 100.8 and because of multiple symptomatology, the family was concerned about the stents and the patient was taken to Dr. Taveras's office. I discussed the case with Dr. Taveras who referred the patient to the emergency room and the patient admitted to the hospital for further evaluation and treatment. Cultures obtained and empiric antibiotics given at this time. There is no history any headache, loss of consciousness, seizures at this time. PAST MEDICAL HISTORY: History of pancreatic cancer, pulmonary embolism, GERD, hypothyroidism, testicular cancer. MEDICATIONS: Prior to admission include home medications are: 1. Mucinex 600 mg p.o. daily. 2. Isordil 300 mg p.o. b.i.d. 3. Compazine 10 mg q.6h p.r.n. 4. MiraLAX 17 g daily p.r.n. 5. Protonix 40 mg daily. 6. Mycostatin 500,000 p.o. q.i.d. 7. Synthroid 100 mg p.o. daily. 8. Flonase 2 sprays daily. 9. Colace 100 mg b.i.d. p.r.n. 10.Eliquis 5 mg b.i.d. 11.Tylenol 1000 mg q.6h p.r.n. ALLERGIES: MORPHINE. FAMILY HISTORY: History of cancer in the family. SOCIAL HISTORY: No history of smoking. No history of alcohol intake. REVIEW OF SYSTEMS: ENT: No diminished vision. No diminished hearing. Cardio system: No angina or palpitations. RESPIRATORY: No cough. GI: As mentioned earlier. no dysuria. NERVOUS SYSTEM: No numbness, weakness. ALLERGY/IMMUNOLOGY: No asthma or hayfever. MUSCULOSKELETAL: As mentioned earlier. HEMATOLOGY/ONCOLOGY: No history of anemia. As mentioned earlier. ENDOCRINE: No history of diabetes or hypothyroidism. CONSTITUTIONAL: As mentioned earlier. Dermatology: Negative. Rheumatology: Negative. Psychiatry: As mentioned earlier. PHYSICAL EXAMINATION: GENERAL: The patient is alert and oriented x3. The pulse is 103. Blood pressure 130/90, respiration 18, temperature is T-max 100.8, pulse ox 98% on room air. HEENT: Conjunctivae normal. Oral mucosa moist. NECK is no jugular venous distention. No carotid bruit. No lymph node enlargement. CARDIOVASCULAR SYSTEM: S1, S2 muffled. No S3, no S4. RESPIRATORY: Breath sounds diminished in the bases. Scattered rhonchi. No crackles. ABDOMEN: Soft, status post surgery. Otherwise, no guarding, no rigidity. No mass palpable. No distention. No tenderness. LEGS: No edema. No swelling. NERVOUS SYSTEM: Higher functions as mentioned. Moves all four extremities. No focal motor or sensory deficits. Lymphatics: No lymph nodes palpable in the neck, axillae or groin. SKIN: No ulcer, rash or bleeding. JOINTS: No active deforming arthropathy. LABS: WBC 2 and hemoglobin is 18.2. Sodium 133 and amylase 1509 and lipase 1465. ASSESSMENT: 1. Abdominal pain, vomiting and fever, rule out sepsis. 2. Rule out acute pancreatitis. 3. Leukopenia. 4. Dehydration with elevated hemoglobin. 5. 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 6. History of cholangitis and sepsis previously. 7. History of duodenal stenosis and stent placement at [facility] recently. 8. Hypothyroidism. 9. Multiple episodes of cholangitis. 10.History of pulmonary embolus. 11.History of testicular cancer. 12.History of metastasis of the liver. 13.FULL CODE. RECOMMENDATIONS AND DISCUSSION: I recommend to continue current medications, management and symptomatic treatment. Otherwise recommend broad-spectrum IV antibiotics. Obtain cultures. Discussed with the patient, family and as well as ER physician. Otherwise abdominal and pelvis CAT scan was also done which personally reviewed by me showed intrahepatic bile duct appears to be increased with some suggestion of increase in the pancreatic head mass and as well as mass in the liver. Hematology/oncology consultation is an order also. The patient is being closely monitored. Prognosis guarded. See orders for further details. Further recommendations to follow. MMODL / IJN: [id number] / RIKA
[2018-01-31] MEDS: URSODIOL 300 MG CAP PO SCH (22:39)
[2018-02-01] MEDS: ACETAMINOPHEN IV (For NPO) 1,000 MG in EMPTY BAG 1 BAG IVPB SCH ×3 (02:20→17:43)
[2018-02-01] MEDS: MEROPENEM 2 GM in SODIUM CHLORIDE 0.9% 100 ML IVPB SCH ×3 (03:29→21:07)
[2018-02-01] MEDS: HYDROmorphone 1 MG/ML 1 ML SYRINGE IVP PRN ×4 (03:29→21:08)
[2018-02-01] MEDS: LEVOTHYROXINE 100 MCG TAB PO SCH (05:44)
[2018-02-01] MEDS: SODIUM CHLORIDE 0.9% 1,000 ML IV SCH ×2 (05:46→17:43)
[2018-02-01] MEDS: HEPARIN SODIUM,PORCINE 5,000 UNIT/ML 1 ML VIAL SQ SCH ×2 (07:21→21:09)
[2018-02-01 09:01] LABS: ALT 43 U/L (21-72); AST 29 U/L (17-59); Alkaline Phosphatase 82 U/L (38-126); Anion Gap 8 mmol/L; Blood Urea Nitrogen 12 mg/dL (9-20); Calcium 8.7 mg/dL (8.4-10.2); Carbon Dioxide 22 mmol/L (22-30); Chloride 103 mmol/L (98-107); Glucose 128 mg/dL (74-99); Sodium 133 mmol/L (137-145); Total Bilirubin 0.9 mg/dL (0.2-1.3); Total Protein 5.4 g/dL (6.3-8.2)
[2018-02-01] MEDS: FLUTICASONE 50MCG/SPRAY NASAL 16GM EA NOSTRIL SCH (09:18)
[2018-02-01] MEDS: NYSTATIN 100,000 UNIT/ML SUSP 500,000 UNIT/5 ML CUP PO SCH ×4 (09:18→21:07)
[2018-02-01] MEDS: URSODIOL 300 MG CAP PO SCH ×2 (09:19→21:09)
[2018-02-01 09:23] LABS: Basophils % (A) 1 %; Eosinophils # (A) 0.1 k/uL (0-0.7); Eosinophils % (A) 4 %; HCT 32.5 % (39.0-53.0); Lymphocytes # (A) 0.2 k/uL (1.0-4.8); Lymphocytes % (A) 7 %; MCH 33.6 pg (25.0-35.0); MCHC 32.5 g/dL (31.0-37.0); MCV 103.2 fL (80.0-100.0); Macrocytosis Moderate; Mean Platelet Volume 6.4; Monocytes # (A) 0.3 k/uL (0-1.0); Monocytes % (A) 10 %; Neutrophils # (A) 2.5 k/uL (1.3-7.7); Neutrophils % (A) 78 %; Platelet Count 269 k/uL (150-450); RBC 3.15 m/uL (4.30-5.90); RDW 15.8 % (11.5-15.5); WBC 3.2 k/uL (3.8-10.6)
[2018-02-01 09:25] LABS: Amylase 596 U/L (30-110)
--- NOTE | 2018-02-01 09:25 | P.CONS ---
History of Present Illness - Reason for Consult Consult date: 02/01/18 Sepsis - History of Present Illness This is a 67-year-old male patient well known to ID service as he has had previous bouts of E. coli sepsis related to obstruction of his biliary track. 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 There is evidence of bilateral pulmonary emboli without much symptom is being treated with Eliquis. In November patient had a duodenal stent placed at [facility] for all obstruction. Patient's relates that biopsy showed evidence of scar tissue not active cancer. Patient is currently undergoing chemotherapy with pump placement for 46 hours Wednesday through Wednesday every other week. The patient has been tolerating chemotherapy quite well. His relates that he ate wing dings on and Wednesday and developed abdominal bloating and vomiting. He is complaining of epigastric pain. He had appointments with oncology and Dr. Taveras on Wednesday which he kept but was subsequently sent into [facility] emergency center for evaluation because he had a temperature 100.8 and bilirubin had jumped from 0.2 to 1.1. Also noted the patient did have acute diarrhea 2 weeks ago which resolved. Patient denies having any diarrhea at this time. His last bowel movement prior to admission was Wednesday and he did have a bowel movement this morning, both have been formed with no blood or blackness. Patient was found to have temperature max of 100.8, white count was 2, hemoglobin 18.2, platelet count 172. Influenza testing for A and B were negative. Urinalysis was negative for infection. Amylase was 1509 and lipase 14,665. CAT scan of the abdomen and pelvis with contrast revealed intrahepatic bile ducts appear increased compared IN that suggested obstruction and malfunction. Pancreatic head mass increased slightly in size compared to old exam. Large mass in the liver increased slightly compared to old exam. There is increase in the lymph nodes as above. Chest x-ray showed elevated left diaphragm with mild pleural reaction or fluid at the lateral left lung base unchanged. Normal heart. Patient is currently on meropenem. Consults are in place for GI and oncology. Review of Systems All systems: negative Constitutional: Reports fatigue, Reports poor appetite, Reports weight loss (5 lbs in one week), Denies chills, Denies fever, Denies lethargy, Denies malaise Eyes: denies blurred vision, denies pain Ears, nose, mouth and throat: Reports mouth pain, Denies dental pain, Denies dysphagia, Denies headache, Denies hoarseness, Denies sore throat Cardiovascular: Denies chest pain, Denies decreased exercise tolerance, Denies dyspnea on exertion, Denies edema, Denies leg edema, Denies lightheadedness, Denies shortness of breath, Denies syncope Respiratory: Denies cough, Denies cough with sputum, Denies dyspnea, Denies excessive sputum, Denies hemoptysis, Denies home oxygen, Denies wheezing Gastrointestinal: Reports abdominal pain, Reports bloating, Reports constipation , Reports loss of appetite, Reports nausea, Reports vomiting, Denies diarrhea, Denies melena Genitourinary: Denies dysuria, Denies hematuria, Denies urinary retention Musculoskeletal: Denies fractures, Denies frequent falls, Denies gait dysfunction, Denies muscle weakness, Denies myalgias Integumentary: Denies pruritus, Denies rash, Denies wounds Neurological: Denies aphasia, Denies change in mentation, Denies confusion, Denies head injury, Denies numbness, Denies syncope, Denies vertigo, Denies weakness Psychiatric: Denies anxiety, Denies depression Endocrine: Denies fatigue, Denies weight change Past Medical History Past Medical History: Cancer, GERD/Reflux, Pulmonary Embolus (PE), Thyroid Disorder Additional Past Medical History / Comment(s): Testicular cancer 1979; Pancreatic Cancer (ampulla of lay), STAGE 4 (February 2015),gets chemo 46 hours stright wednesday thru to wed. will be due next wednesday METS TO LIVER. HX Sepsis. Hypothyroid. upper/lower bridges. PE X2 11/01/17.cataracts History of Any Multi-Drug Resistant Organisms: None Reported Past Surgical History: Hernia Repair, Tonsillectomy Additional Past Surgical History / Comment(s): 1979 Lt Testicle, lymph nodes removed along spine. Right Inguinal Hernia Repair x3 with mesh. has a power port. Hemorrhoidectomy (2011), Colonoscopy (Jan 2015), Titanium Stent in Pancreas (02/2015 @ [facility]), Restent in 01/2016 ([facility])and in 2017 . ERCP'S. Power Port. duodenal stent for obstruction not malignant Past Anesthesia/Blood Transfusion Reactions: Previous Problems w/ Anesthesia Additional Past Anesthesia/Blood Transfusion Reaction / Comm: DIFFICULTY URINATING W/ HERNIA, HEMORRHOID SURGERIES. Past Psychological History: No Psychological Hx Reported Additional Psychological History / Comment(s): Pt resides with his spouse and son. There is a cat in the household. Pt is independent. 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 He lives at home with his and son. There is a cat in the home. No recent travel or service. Past Drug Use History: None Reported Additional Drug Use History / Comment(s): . - Past Family History Mother Family Medical History: Cancer Additional Family Medical History / Comment(s): Cancer x 3, lived until age 89. Sister(s) Family Medical History: Cancer Additional Family Medical History / Comment(s): Breast cancer. Brother(s) Family Medical History: Cancer Father Family Medical History: Cancer Additional Family Medical History / Comment(s): Colon/bladder cancer x 3, at 94 Medications and Allergies Home Medications Medication Instructions Recorded Confirmed Type Fluticasone Nasal [place] [Flonase 2 spray EA NOSTRIL DAILY 05/23/16 01/31/18 History Nasal [place]] Ursodiol 300 mg PO BID 03/16/17 01/31/18 History Levothyroxine Sodium [Synthroid] 100 mcg PO DAILY 06/01/17 01/31/18 History Prochlorperazine [Compazine] 10 mg PO Q6H PRN 06/18/17 01/31/18 History Acetaminophen [Tylenol Extra 500 - 1,000 mg PO Q6H PRN 11/17/17 01/31/18 History Strength] Apixaban [Eliquis] 5 mg PO BID 11/17/17 01/31/18 History Pantoprazole Sodium [Protonix] 40 mg PO DAILY 11/17/17 01/31/18 History Nystatin 100,000 Unit/ml Susp 500,000 unit PO QID 01/16/18 01/31/18 History [Mycostatin Oral Susp] guaiFENesin [Mucinex] 600 mg PO DAILY 01/16/18 01/31/18 History Docusate [Colace] 100 mg PO BID PRN #1 01/18/18 01/31/18 Rx Polyethylene Glycol 3350 [Miralax] 17 gm PO DAILY PRN #1 01/18/18 01/31/18 Rx Allergies Allergy/AdvReac Type Severity Reaction Status Date / Time morphine AdvReac BRADYCARDIC Verified 01/31/18 15:42 Physical Exam Vitals: Vital Signs Temp Pulse Pulse Resp BP BP Pulse Ox 02/01/18 07:00 99.1 F 88 14 131/85 02/01/18 00:24 98.1 F 89 15 119/74 97 01/31/18 21:26 99 F 79 18 153/90 99 01/31/18 21:01 75 18 137/79 98 01/31/18 19:24 98.7 F 75 18 137/86 98 01/31/18 17:52 98.7 F 90 18 128/72 100 01/31/18 17:17 100.8 F H 01/31/18 15:35 98.9 F 103 H 18 131/93 98 Intake and Output 01/31/18 02/01/18 02/01/18 22:59 06:59 14:59 Intake Total 1375 180 Balance 1375 180 Intake: Amount of Fluid Infused ( 1300 ml) Intake, IV Titration 75 180 Amount Sodium Chloride 0.9% 1, 75 180 000 ml @ 75 mls/hr IV . [id number] [facility] Rx#:[id number] Other: Weight 77.8 kg Gen: This is a 67-year-old male. He is resting in bed appears to be comfortable. HEENT: Head is atraumatic, normocephalic. Pupils equal, round. Sclerae is anicteric. NECK: Supple. No JVD. No lymphadenopathy. No thyromegaly. LUNGS: Clear to auscultation. No wheezes or rhonchi. No intercostal retractions. HEART: Regular rate and rhythm. No murmur. Port to the left upper anterior chest with no surrounding erythema or tenderness. ABDOMEN: Soft. Bowel sounds are present. No masses. Epigastric tenderness. EXTREMITIES: No pedal edema. No calf tenderness. Dorsalis pedis +2 bilaterally. NEUROLOGICAL: Patient is awake, alert and oriented x3. Cranial nerves 2 through 12 are grossly intact. Results Results: Laboratory Results WBC 2.0 k/uL (3.8-10.6) L 01/31/18 17:05 RBC 5.25 m/uL (4.30-5.90) 01/31/18 17:05 Hgb 18.2 gm/dL (13.0-17.5) H D 01/31/18 17:05 Hct 53.5 % (39.0-53.0) H 01/31/18 17:05 MCV 101.9 fL (80.0-100.0) H 01/31/18 17:05 MCH 34.6 pg (25.0-35.0) 01/31/18 17:05 MCHC 34.0 g/dL (31.0-37.0) 01/31/18 17:05 RDW 15.6 % (11.5-15.5) H 01/31/18 17:05 Plt Count 172 k/uL (150-450) 01/31/18 17:05 Neutrophils % 76 % 01/31/18 17:05 Lymphocytes % 9 % 01/31/18 17:05 Monocytes % 9 % 01/31/18 17:05 Eosinophils % 3 % 01/31/18 17:05 Basophils % 1 % 01/31/18 17:05 Neutrophils # 1.6 k/uL (1.3-7.7) 01/31/18 17:05 Lymphocytes # 0.2 k/uL (1.0-4.8) L 01/31/18 17:05 Monocytes # 0.2 k/uL (0-1.0) 01/31/18 17:05 Eosinophils # 0.1 k/uL (0-0.7) 01/31/18 17:05 Basophils # 0.0 k/uL (0-0.2) 01/31/18 17:05 Macrocytosis Slight 01/31/18 17:05 PT 10.8 sec (9.0-12.0) 01/31/18 17:05 INR 1.0 (<1.2) 01/31/18 17:05 APTT 25.8 sec (22.0-30.0) 01/31/18 17:05 Sodium 133 mmol/L (137-145) L 01/31/18 17:05 Potassium 4.3 mmol/L (3.5-5.1) 01/31/18 17:05 Chloride 102 mmol/L (98-107) 01/31/18 17:05 Carbon Dioxide 24 mmol/L (22-30) 01/31/18 17:05 Anion Gap 7 mmol/L 01/31/18 17:05 BUN 15 mg/dL (9-20) 01/31/18 17:05 Creatinine 0.69 mg/dL (0.66-1.25) 01/31/18 17:05 Est GFR (CKD-EPI)AfAm >90 (>60 ml/min/1.73 sqM) 01/31/18 17:05 Est GFR (CKD-EPI)NonAf >90 (>60 ml/min/1.73 sqM) 01/31/18 17:05 Glucose 103 mg/dL (74-99) H 01/31/18 17:05 Plasma Lactic Acid Paddy 1.1 mmol/L (0.7-2.0) 01/31/18 17:05 Calcium 9.3 mg/dL (8.4-10.2) 01/31/18 17:05 Total Bilirubin 1.1 mg/dL (0.2-1.3) 01/31/18 17:05 AST 34 U/L (17-59) 01/31/18 17:05 ALT 40 U/L (21-72) 01/31/18 17:05 Alkaline Phosphatase 81 U/L (38-126) 01/31/18 17:05 Total Protein 6.0 g/dL (6.3-8.2) L 01/31/18 17:05 Albumin 3.4 g/dL (3.5-5.0) L 01/31/18 17:05 Amylase 1509 U/L (30-110) H* 01/31/18 17:05 Lipase 41727 U/L (23-300) H 01/31/18 17:05 Urine Color Yellow 01/31/18 18:05 Urine Appearance Clear (Clear) 01/31/18 18:05 Urine pH 6.5 (5.0-8.0) 01/31/18 18:05 Ur Specific [place] 1.021 (1.001-1.035) 01/31/18 18:05 Urine Protein 1+ (Negative) H 01/31/18 18:05 Urine Glucose (UA) Negative (Negative) 01/31/18 18:05 Urine Ketones Negative (Negative) 01/31/18 18:05 Urine Blood Negative (Negative) 01/31/18 18:05 Urine Nitrite Negative (Negative) 01/31/18 18:05 Urine Bilirubin Negative (Negative) 01/31/18 18:05 Urine Urobilinogen 3.0 mg/dL (<2.0) 01/31/18 18:05 Ur Leukocyte Esterase Negative (Negative) 01/31/18 18:05 Urine RBC 5 /hpf (0-5) 01/31/18 18:05 Urine WBC 1 /hpf (0-5) 01/31/18 18:05 Ur Squamous Epith Cells <1 /hpf (0-4) 01/31/18 18:05 Hyaline Casts 1 /lpf (0-2) 01/31/18 18:05 Urine Mucus Rare /hpf (None) H 01/31/18 18:05 Influenza Type A RNA Not Detected (Not Detectd) 01/31/18 17:05 Influenza Type B (PCR) Not Detected (Not Detectd) 01/31/18 17:05 CBC & Chem 7: 01/31/18 17:05 01/31/18 17:05 Labs: Abnormal Lab Results - Last 24 Hours (Table) 01/31/18 01/31/18 01/31/18 Range/Units 17:05 17:05 18:05 WBC 2.0 L (3.8-10.6) k/uL Hgb 18.2 H D (13.0-17.5) gm/dL Hct 53.5 H (39.0-53.0) % MCV 101.9 H (80.0-100.0) fL RDW 15.6 H (11.5-15.5) % Lymphocytes # 0.2 L (1.0-4.8) k/uL Sodium 133 L (137-145) mmol/L Glucose 103 H (74-99) mg/dL Total Protein 6.0 L (6.3-8.2) g/dL Albumin 3.4 L (3.5-5.0) g/dL Amylase 1509 H* (30-110) U/L Lipase 21800 H (23-300) U/L Urine Protein 1+ H (Negative) Urine Mucus Rare H (None) /hpf Microbiology - Last 24 Hours (Table) 01/31/18 18:05 Urine Culture - Preliminary Urine,Voided Assessment and Plan Plan: This is a 67-year-old male patient with a complex medical history with pancreaticcancer metastatic disease to the liver currently under chemotherapy with improvement of the size of his liver metastases. Patient presents with abdominal pain, vomiting and found to have acute pancreatitis with possible intrahepatic bile duct blockage/malfunction and sepsis secondary to that with leukopenia and fever. He is currently on IV antibiotics in the form of meropenem which will be continued. GI and oncology are also following the patient. Continue supportive care. Further recommendations as patient progresses. The above dictated assessment and findings were discussed with Dr. Spivey. The impression and plan of care have been directed as dictated. Chinyere Rutledge nurse practitioner acting as scribe for Dr. Spivey.
[2018-02-01 09:26] LABS: Lipase 5563 U/L (23-300)
[2018-02-01 09:29] LABS: HGB 10.6 gm/dL (13.0-17.5)
--- NOTE | 2018-02-01 13:15 | P.CONS ---
History of Present Illness - Reason for Consult Consult date: 02/01/18 on treatment for pancreatic adenocarcinoma Requesting physician: John Moore - Chief Complaint abd pain, nausea - History of Present Illness Mr. Blankenship is a pt well known to our service, initially presented with obstructive jaundice January 2015, LFTs and bilirubin significantly elevated, MRCP 02/23/15 revealed intra and extra hepatic biliary dilatation, 3 suspicious liver lesions and peripancreatic nodes, EGD revealed a suspicious periampullary mass, biopsy was positive for poorly differentiated adenocarcinoma of pancreaticobiliary or upper GI primary. He had core biopsy of liver at [facility] 03/05, path also positive for metastatic adenocarcinoma, consistent with pancreaticobiliary or upper GI primary. Ca19.9 was 88.6. He initially had external biliary drain then subsequently had a metal internal biliary stent placement and mediport placement. He started mFOLFOX6 on 03/25/15. 04/17/15, Ca19.9 was down to 7. Treatment f/u liver MRI 06/13/15 revealed possible progression of his disease and mFOLFOX was discontinued. 07/02/15 he started gemzar/abraxane. 08/15/15 liver MRI revealed stable disease. He did require dose reductions due to neuropathy. MRI of liver 10/11/15 revealed improvement in liver lesions. He was hospitalized 12/07 where he was diagnosed with e-coli infection and obstruction of biliary stent, he had ERCP. Treatment f/u scans in Nov, Jan showed no evidence of disease. On 04/17/[address] revealed new abdominal nodes and liver lesion. He started onivyde/5FU on . Treatment f/u CTs on 07/03/16, 10/23/16, 12/11/16 and 08/24/16 revealed progressive improvement in his disease. 01/24/18 he had a total of 10 cycles of onivyde/5FU. Had obstruction of biliary stent in September 2016, transferred to [facility] and underwent ERCP, found evidence of sludge in metal stent and plastic stent was inserted, no evidence of malignancy. 01/27/17 LFTs went up , CT CAP 01/29/17 revealed evidence of disease progression in his liver. Started gemzar on , he had 3 weeks of treatment, then it was held due to biliary stent blockage and infection and was off treatment until 2/5/18. CT 04/16/17 revealed relatively stable disease. CT 05/28/17 revealed disease progression in the liver and abdominal nodes, gemzar was discontinued. 06/14/17 he started gemzar/abraxane, treatment was interrupted several times due to recurrent biliary stent infection, last treatment was on 08/09/17. 08/23/17 CT CAP revealed evidence of disease progression, enlarging liver mass and retroperitoneal nodes and ascites. 09/14/17 he resumed onyvide/5FU. 11/01/17 treatment f/u CT CAP revealed stable to improving adenopathy and bilateral PEs, was started eliquis the same day. developed progressive vomiting, had EGD which showed obstruction at duodenum, felt to be secondary to trauma from previous multiple stents, was referred to [facility] and had a duodenal stent placed. 01/03/18 CT revealed improvement in his disease. He has 10 cycles of onivyde and 5FU 01/24/18. Over the last 3 days, he has recurrent epigastric discomfort, states it started after eating chicken wings and fried shrimp, associate with gas, abd fullness, finally fever and vomiting. Denies dysphagia, CLIF, chest pains, dysuria, diarrhea, constipation, bleeding, swelling or other pain at this time. Amylase and lipase elevated on admit, empiric abx ordered. 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 will be due next wednesday METS TO LIVER. HX Sepsis. Hypothyroid. upper/lower bridges. PE X2 11/01/17.cataracts History of Any Multi-Drug Resistant Organisms: None Reported Past Surgical History: Hernia Repair, Tonsillectomy Additional Past Surgical History / Comment(s): 1979 Lt Testicle, lymph nodes removed along spine. Right Inguinal Hernia Repair x3 with mesh. has a power port. Hemorrhoidectomy (2011), Colonoscopy (Jan 2015), Titanium Stent in Pancreas (02/2015 @ [facility]), Restent in 01/2016 ([facility])and in 2017 . ERCP'S. Power Port. duodenal stent for obstruction not malignant Past Anesthesia/Blood Transfusion Reactions: Previous Problems w/ Anesthesia Additional Past Anesthesia/Blood Transfusion Reaction / Comm: DIFFICULTY URINATING W/ HERNIA, HEMORRHOID SURGERIES. Past Psychological History: No Psychological Hx Reported Additional Psychological History / Comment(s): Pt resides with his spouse and son. There is a cat in the household. Pt is independent. 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 He lives at home with his and son. There is a cat in the home. No recent travel or service. Past Drug Use History: None Reported Additional Drug Use History / Comment(s): . - Past Family History Mother Family Medical History: Cancer Additional Family Medical History / Comment(s): Cancer x 3, lived until age 89. Sister(s) Family Medical History: Cancer Additional Family Medical History / Comment(s): Breast cancer. Brother(s) Family Medical History: Cancer Father Family Medical History: Cancer Additional Family Medical History / Comment(s): Colon/bladder cancer x 3, at 94 Medications and Allergies Home Medications Medication Instructions Recorded Confirmed Type Fluticasone Nasal [place] [Flonase 2 spray EA NOSTRIL DAILY 05/23/16 01/31/18 History Nasal [place]] Ursodiol 300 mg PO BID 03/16/17 01/31/18 History Levothyroxine Sodium [Synthroid] 100 mcg PO DAILY 06/01/17 01/31/18 History Prochlorperazine [Compazine] 10 mg PO Q6H PRN 06/18/17 01/31/18 History Acetaminophen [Tylenol Extra 500 - 1,000 mg PO Q6H PRN 11/17/17 01/31/18 History Strength] Apixaban [Eliquis] 5 mg PO BID 11/17/17 01/31/18 History Pantoprazole Sodium [Protonix] 40 mg PO DAILY 11/17/17 01/31/18 History Nystatin 100,000 Unit/ml Susp 500,000 unit PO QID 01/16/18 01/31/18 History [Mycostatin Oral Susp] guaiFENesin [Mucinex] 600 mg PO DAILY 01/16/18 01/31/18 History Docusate [Colace] 100 mg PO BID PRN #1 01/18/18 01/31/18 Rx Polyethylene Glycol 3350 [Miralax] 17 gm PO DAILY PRN #1 01/18/18 01/31/18 Rx Allergies Allergy/AdvReac Type Severity Reaction Status Date / Time morphine AdvReac BRADYCARDIC Verified 01/31/18 15:42 Physical Exam Vitals: Vital Signs Temp Pulse Pulse Resp BP BP Pulse Ox 02/01/18 11:29 88 14 02/01/18 07:00 99.1 F 88 14 131/85 02/01/18 00:24 98.1 F 89 15 119/74 97 01/31/18 21:26 99 F 79 18 153/90 99 01/31/18 21:01 75 18 137/79 98 01/31/18 19:24 98.7 F 75 18 137/86 98 01/31/18 17:52 98.7 F 90 18 128/72 100 01/31/18 17:17 100.8 F H 01/31/18 15:35 98.9 F 103 H 18 131/93 98 Intake and Output 01/31/18 02/01/18 02/01/18 22:59 06:59 14:59 Intake Total 1375 180 300 Balance 1375 180 300 Intake: Amount of Fluid Infused ( 1300 ml) Intake, IV Titration 75 180 Amount Sodium Chloride 0.9% 1, 75 180 000 ml @ 75 mls/hr IV . [id number] [facility] Rx#:[id number] Oral 300 Other: Weight 77.8 kg - Constitutional General appearance: average body habitus, cooperative, no acute distress - EENT Eyes: anicteric sclerae, EOMI ENT: hearing grossly normal, normal oropharynx - Neck Neck: no lymphadenopathy - Respiratory Respiratory: bilateral: CTA - Cardiovascular Heart sounds: normal: S1, S2 Abnormal Heart Sounds: no systolic murmur, no diastolic murmur, no rub, no S3 Gallop, no S4 Gallop, no click, no other leg Peripheral Edema: bilateral: None - Gastrointestinal General gastrointestinal: no absent bowel sounds, no decreased bowel sounds, no distended, no hepatomegaly, no hyperactive bowel sounds, normal bowel sounds, no organomegaly, no rigid, no scaphoid, soft, no splenomegaly, tenderness, no umbilical hernia, no ventral hernia Localized gastrointestinal: tender: epigastric periumbilical - Neurologic Neurologic: CNII-XII intact - Musculoskeletal Musculoskeletal: generalized weakness, strength equal bilaterally - Psychiatric Psychiatric: A&O x's 3, appropriate affect, intact judgment & insight Results CBC & Chem 7: 02/01/18 08:37 02/01/18 08:37 Labs: Abnormal Lab Results - Last 24 Hours (Table) 01/31/18 01/31/18 01/31/18 Range/Units 17:05 17:05 18:05 WBC 2.0 L (3.8-10.6) k/uL RBC (4.30-5.90) m/uL Hgb 18.2 H D (13.0-17.5) gm/dL Hct 53.5 H (39.0-53.0) % MCV 101.9 H (80.0-100.0) fL RDW 15.6 H (11.5-15.5) % Lymphocytes # 0.2 L (1.0-4.8) k/uL Sodium 133 L (137-145) mmol/L Glucose 103 H (74-99) mg/dL Total Protein 6.0 L (6.3-8.2) g/dL Albumin 3.4 L (3.5-5.0) g/dL Amylase 1509 H* (30-110) U/L Lipase 04666 H (23-300) U/L Urine Protein 1+ H (Negative) Urine Mucus Rare H (None) /hpf 02/01/18 02/01/18 Range/Units 08:37 08:37 WBC 3.2 L (3.8-10.6) k/uL RBC 3.15 L (4.30-5.90) m/uL Hgb 10.6 L D (13.0-17.5) gm/dL Hct 32.5 L (39.0-53.0) % MCV 103.2 H (80.0-100.0) fL RDW 15.8 H (11.5-15.5) % Lymphocytes # 0.2 L (1.0-4.8) k/uL Sodium 133 L (137-145) mmol/L Glucose 128 H (74-99) mg/dL Total Protein 5.4 L (6.3-8.2) g/dL Albumin 3.0 L (3.5-5.0) g/dL Amylase 596 H* (30-110) U/L Lipase 5563 H (23-300) U/L Urine Protein (Negative) Urine Mucus (None) /hpf Microbiology - Last 24 Hours (Table) 01/31/18 18:05 Urine Culture - Preliminary Urine,Voided CT scan - abdomen: report reviewed CT scan - pelvis: report reviewed Assessment and Plan (1) Elevated amylase and lipase Current Visit: Yes Status: Acute Priority: High Code(s): R74.8 - ABNORMAL LEVELS OF OTHER SERUM ENZYMES SNOMED Code(s): 883825048 (2) Pancreatic cancer Narrative/Plan: Pt just completed 10 cycles of treatment. Last CT 01/03/18 showed stable disease. Any minor changes noted on CT at this time would be considered due to acute process/inflammation and NOT disease progression at this time. F/U CT once current condition resolved. Current Visit: Yes Status: Chronic Priority: Medium Code(s): C25.9 - MALIGNANT NEOPLASM OF PANCREAS, UNSPECIFIED SNOMED Code(s): 163694150 (3) Acute biliary pancreatitis Current Visit: Yes Status: Acute Priority: High Code(s): K85.1 - BILIARY ACUTE PANCREATITIS * DO NOT USE * SNOMED Code(s): 377064181 (4) Fever Narrative/Plan: Empiric abx and ID consulted Current Visit: Yes Status: Acute Priority: High Code(s): R50.9 - FEVER, UNSPECIFIED SNOMED Code(s): 859065445 (5) Pulmonary embolism Narrative/Plan: Read GI notes, no procedures planned, pt was resumed on his anticoagulation Current Visit: No Status: Chronic Priority: Medium Code(s): I26.99 - OTHER PULMONARY EMBOLISM WITHOUT ACUTE COR PULMONALE SNOMED Code(s): 24408092 Plan: Will defer to GI for pancreatitis and evaluation of stents.
--- NOTE | 2018-02-01 13:36 | P.CONS ---
History of Present Illness - Reason for Consult Consult date: 02/01/18 Nausea vomiting abdominal pain Requesting physician: Lizbeth Larkin - Chief Complaint Nausea vomiting abdominal pain - History of Present Illness 67-year-old gentleman well-known to Dr. Taveras service with a past medical history of pancreatic ampullary carcinoma with liver metastasis. Recent bilateral pulmonary embolisms in October maintained on Eliquis. Patient has had multiple hospitalizations in the last few years related to biliary sepsis cholangitis requiring multiple ERCPs and multiple stent placement. In October patient developed intractable nausea vomiting upper abdominal pain. He underwent EGD evaluation 11/19/2017 with findings of near complete duodenal obstruction and stricture second portion of duodenum with retained food in the stomach suggestive of gastric outlet obstruction and multiple erosions involving the entire esophagus consistent with severe reflux esophagitis. Biopsies negative for malignancy. Patient was transferred to [facility] gastroenterology service Dr. Whitaker and underwent upper endoscopy with duodenal stent placement as well as ERCP. Patient was told his obstruction was secondary to adhesions. His symptoms improved greatly and he has continued to do well up until this past weekend. Last Wednesday he received his chemotherapy had some chicken wings on Wednesday and over the weekend developed nausea vomiting epigastric pain. These symptoms were similar in presentation as they were in October he thought possibly his duodenal stricture had returned. CT abdomen and pelvis with IV contrast reported stent in the second and third part of the duodenum. Biliary stent seen. Mild ectasia of the intrahepatic bile ducts. Low-density mass in the posterior right lobe of the liver 8.25.4 cm. This is slightly increased compared to old exam. Enlargement of the pancreatic head measuring 5.1 cm in maximum dimension and increased slightly compared to last exam. Mild dilation of the pancreatic duct. Intrahepatic bile ducts appear increased slightly in size compared to last CT. No evidence of bowel obstruction. 21.4 cm enlarged hepatogastric lymph node. 1.3 cm enlarged small bowel mesenteric lymph node. On admission T-max 100.8. He is receiving IV antibiotics. White count 2.0. Hemoglobin 18.2. MCV 101. Platelet 172. INR 1.0. Total bilirubin 1.1. AST 34. ALT 40. AP 81. Lipase 14,665. Amylase 1509. Today his pancreatic enzymes have improved lipase 5563. Amylase 596. LFTs stable total bilirubin 0.9. AST 29. ALT 43. AP 82. CA-19-9 last month was 5.9. Nausea vomiting has improved. Epigastric pain still present but improved. Review of Systems Constitutional: Denies fever, chills, sweats, weight gain, or loss. HEENT: Negative for migraines, blurred vision or loss, earaches, drainage, tinnitus, oral mucosal lesions, dysphagia, or odynophagia. Cardiac: Negative for chest pain, arrhythmias, or palpitation. Respiratory: Negative for shortness of breath, hemoptysis, cough, or sputum production. Gastrointestinal: See HPI for pertinent findings. Genitourinary: Negative for hematuria, urgency, frequency, polyuria, dysuria, or penile discharge. Musculoskeletal: Negative for muscle aches, swelling, arthritis, and arthralgias. Neurologic: Negative for stroke or TIA. Endocrine: Negative for thyroid problems. Skin: Negative for rash or itching. 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 will be due next wednesday METS TO LIVER. HX Sepsis. Hypothyroid. upper/lower bridges. PE X2 11/01/17.cataracts History of Any Multi-Drug Resistant Organisms: None Reported Past Surgical History: Hernia Repair, Tonsillectomy Additional Past Surgical History / Comment(s): 1979 Lt Testicle, lymph nodes removed along spine. Right Inguinal Hernia Repair x3 with mesh. has a power port. Hemorrhoidectomy (2011), Colonoscopy (Jan 2015), Titanium Stent in Pancreas (02/2015 @ [facility]), Restent in 01/2016 ([facility])and in 2017 . ERCP'S. Power Port. duodenal stent for obstruction not malignant Past Anesthesia/Blood Transfusion Reactions: Previous Problems w/ Anesthesia Additional Past Anesthesia/Blood Transfusion Reaction / Comm: DIFFICULTY URINATING W/ HERNIA, HEMORRHOID SURGERIES. Past Psychological History: No Psychological Hx Reported Additional Psychological History / Comment(s): Pt resides with his spouse and son. There is a cat in the household. Pt is independent. 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 He lives at home with his and son. There is a cat in the home. No recent travel or service. Past Drug Use History: None Reported Additional Drug Use History / Comment(s): . - Past Family History Mother Family Medical History: Cancer Additional Family Medical History / Comment(s): Cancer x 3, lived until age 89. Sister(s) Family Medical History: Cancer Additional Family Medical History / Comment(s): Breast cancer. Brother(s) Family Medical History: Cancer Father Family Medical History: Cancer Additional Family Medical History / Comment(s): Colon/bladder cancer x 3, at 94 Medications and Allergies Home Medications Medication Instructions Recorded Confirmed Type Fluticasone Nasal [place] [Flonase 2 spray EA NOSTRIL DAILY 05/23/16 01/31/18 History Nasal [place]] Ursodiol 300 mg PO BID 03/16/17 01/31/18 History Levothyroxine Sodium [Synthroid] 100 mcg PO DAILY 06/01/17 01/31/18 History Prochlorperazine [Compazine] 10 mg PO Q6H PRN 06/18/17 01/31/18 History Acetaminophen [Tylenol Extra 500 - 1,000 mg PO Q6H PRN 11/17/17 01/31/18 History Strength] Apixaban [Eliquis] 5 mg PO BID 11/17/17 01/31/18 History Pantoprazole Sodium [Protonix] 40 mg PO DAILY 11/17/17 01/31/18 History Nystatin 100,000 Unit/ml Susp 500,000 unit PO QID 01/16/18 01/31/18 History [Mycostatin Oral Susp] guaiFENesin [Mucinex] 600 mg PO DAILY 01/16/18 01/31/18 History Docusate [Colace] 100 mg PO BID PRN #1 01/18/18 01/31/18 Rx Polyethylene Glycol 3350 [Miralax] 17 gm PO DAILY PRN #1 01/18/18 01/31/18 Rx Allergies Allergy/AdvReac Type Severity Reaction Status Date / Time morphine AdvReac BRADYCARDIC Verified 01/31/18 15:42 Physical Exam Vitals: Vital Signs Temp Pulse Pulse Resp BP BP Pulse Ox 02/01/18 11:29 88 14 02/01/18 07:00 99.1 F 88 14 131/85 02/01/18 00:24 98.1 F 89 15 119/74 97 01/31/18 21:26 99 F 79 18 153/90 99 01/31/18 21:01 75 18 137/79 98 01/31/18 19:24 98.7 F 75 18 137/86 98 01/31/18 17:52 98.7 F 90 18 128/72 100 01/31/18 17:17 100.8 F H 01/31/18 15:35 98.9 F 103 H 18 131/93 98 Intake and Output 01/31/18 02/01/18 02/01/18 22:59 06:59 14:59 Intake Total 1375 180 300 Balance 1375 180 300 Intake: Amount of Fluid Infused ( 1300 ml) Intake, IV Titration 75 180 Amount Sodium Chloride 0.9% 1, 75 180 000 ml @ 75 mls/hr IV . [id number] [facility] Rx#:[id number] Oral 300 Other: Weight 77.8 kg General appearance: The patient is alert, oriented, in no acute distress. HET: Head is normocephalic and atraumatic. Pupils are equal and reactive. Oropharynx is clear without lesions. Neck: Supple without lymphadenopathy. Trachea midline. Heart: S1 S2. Regular rate and rhythm. Lungs: No crackles or wheezes are heard. Abdomen: Soft, epigastric tenderness, nondistended with bowel sounds. No peritoneal signs. No palpable organomegaly or masses. Extremities: Normal skin color and turgor. No cyanosis, rash, ulceration, clubbing, or edema. Radial and pedal pulses are 2/4 bilaterally. Neurological: No focal deficits. Strength and sensation are grossly intact. Results CBC & Chem 7: 02/01/18 08:37 02/01/18 08:37 Labs: Abnormal Lab Results - Last 24 Hours (Table) 01/31/18 01/31/18 01/31/18 Range/Units 17:05 17:05 18:05 WBC 2.0 L (3.8-10.6) k/uL RBC (4.30-5.90) m/uL Hgb 18.2 H D (13.0-17.5) gm/dL Hct 53.5 H (39.0-53.0) % MCV 101.9 H (80.0-100.0) fL RDW 15.6 H (11.5-15.5) % Lymphocytes # 0.2 L (1.0-4.8) k/uL Sodium 133 L (137-145) mmol/L Glucose 103 H (74-99) mg/dL Total Protein 6.0 L (6.3-8.2) g/dL Albumin 3.4 L (3.5-5.0) g/dL Amylase 1509 H* (30-110) U/L Lipase 95610 H (23-300) U/L Urine Protein 1+ H (Negative) Urine Mucus Rare H (None) /hpf 02/01/18 02/01/18 Range/Units 08:37 08:37 WBC 3.2 L (3.8-10.6) k/uL RBC 3.15 L (4.30-5.90) m/uL Hgb 10.6 L D (13.0-17.5) gm/dL Hct 32.5 L (39.0-53.0) % MCV 103.2 H (80.0-100.0) fL RDW 15.8 H (11.5-15.5) % Lymphocytes # 0.2 L (1.0-4.8) k/uL Sodium 133 L (137-145) mmol/L Glucose 128 H (74-99) mg/dL Total Protein 5.4 L (6.3-8.2) g/dL Albumin 3.0 L (3.5-5.0) g/dL Amylase 596 H* (30-110) U/L Lipase 5563 H (23-300) U/L Urine Protein (Negative) Urine Mucus (None) /hpf Microbiology - Last 24 Hours (Table) 01/31/18 18:05 Urine Culture - Preliminary Urine,Voided CT scan - abdomen: report reviewed (Reviewed by Dr. Girard) Assessment and Plan (1) Acute pancreatitis Narrative/Plan: 67-year-old gentleman with a history of pancreatic ampullary carcinoma presently on chemotherapy, pulmonary embolism maintained on anticoagulation, and recent hospitalization November 2017 for duodenal obstruction secondary to adhesions status post duodenal stent placement November 2017 at [facility] presents with acute epigastric pain nausea vomiting with elevated pancreatic enzymes consistent with acute pancreatitis. Patient's clinical presentation appears to be more consistent with acute pancreatitis then recurrence of duodenal obstruction. CT abdomen and pelvis reported no evidence of bowel obstruction LFTs within normal limits and pancreatic enzymes are improving. Current Visit: Yes Status: Acute Code(s): K85.90 - ACUTE PANCREATITIS WITHOUT NECROSIS OR INFECTION, UNSP SNOMED Code(s): 197882910 (2) Ampullary carcinoma Current Visit: No Status: Chronic Priority: Medium Code(s): C24.1 - MALIGNANT NEOPLASM OF AMPULLA OF VATER SNOMED Code(s): 081196537 Plan: 1. Continue with symptomatic supportive measures and IV hydration 125 mL an hour. 2. Daily CMP CBC amylase lipase. Protonix 40 mg IV twice daily. Resume Actigall 300 mg twice a day. 3. Resume anticoagulation inpatient endoscopic exams are not planned at this time. 4. Clear liquids as tolerated. Will follow closely with you. Thank you for this kind referral and the opportunity to participate in the care of your patient. This consultation was discussed with Dr. Girard. The impression and plan of care have been directed as dictated.
--- NOTE | 2018-02-01 17:43 | PN ---
PROGRESS NOTE DATE OF SERVICE: 02/01/2018 This 67-year-old gentleman admitted with abdominal discomfort and vomiting and fever and rigors, chills, admitted with features of acute pancreatitis. The patient also has been started on empiric antibiotics for possible sepsis. The patient has multiple complex medical issues including insertion of multiple stents also, amylase and lipase increased and multiple consultants including gastroenterology and as well as ID is following the patient closely. No chest pain. No palpitations. PAST MEDICAL HISTORY: Reviewed. REVIEW OF SYSTEMS: CARDIOVASCULAR: No angina or palpitations. Respirations: As mentioned earlier. GI as mentioned earlier. as mentioned earlier. Nervous system: No numbness or weakness. CURRENT MEDICATIONS: Reviewed and include: 1. Tylenol p.r.n. 2. Flonase p.r.n. 3. Heparin 5000 subcu b.i.d. 4. Dilaudid p.o. q.3h p.r.n. 5. Synthroid 100 mcg p.o. daily. 6. Meropenem 2 g IV q.8h. 7. Narcan. 8. Mycostatin. 9. Protonix. PHYSICAL EXAM: Patient is alert, oriented x3. Pulse 73, blood pressure 112/63, respirations 16, temperature 98 degrees, pulse ox 99% on room air. HEENT: Conjunctivae normal. NECK: No jugular venous distention. CARDIOVASCULAR: S1, S2 muffled. RESPIRATORY: Breath sounds diminished in the bases. A few scattered rhonchi. No crackles. ABDOMEN: Soft, nontender. No mass palpable. No guarding. No rigidity. No ascites. Legs: No edema. No swelling. NERVOUS SYSTEM: No focal deficits. LAB STUDIES: WBC 3.9, hemoglobin 10.6. Platelets are normal. The amylase is 596 and lipase 5560. Other labs are reviewed personally. ASSESSMENT: 1. Abdominal pain possible acute pancreatitis. 2. Fever and vomiting possible acute sepsis. 3. Leukopenia. 4. Dehydration, elevated hemoglobin. 5. 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 6. History of cholangitis and sepsis previously. 7. History of duodenal stenosis, stent placement at [facility] recently. 8. Hypothyroidism. 9. Multiple episodes of cholangitis. 10.History of pulmonary embolus. 11.History of testicular cancer. 12.History of metastasis to the liver. 13.FULL CODE. RECOMMENDATIONS AND DISCUSSION: In this 67-year-old gentleman who presented with multiple complex medical issues , we will monitor the patient closely, continue the current medications, management and symptomatic treatment. Otherwise, at this time, I recommend continue with current medications and I would also recommend closely follow with multiple consultants. Continue with antibiotics. Await cultures, repeat labs. Advance diet slowly. Guarded prognosis because of multiple complex medical issues, further recommendations to follow. Discussed with the patient. See orders for details. The patient is off apixaban at this time, anticipating procedures. Further recommendations to follow. MMODL / IJN: [id number] / MTDD
[2018-02-01] MEDS: PANTOPRAZOLE 40 MG/10 ML VIAL IVP SCH (21:09)
--- NOTE | 2018-02-01 23:00 | P.CON ---
Consult Note - . Consult date: 02/01/18 Assessment/Plan:: This is a 67-year-old male patient well known to ID service as he has had previous bouts of E. coli sepsis related to obstruction of his biliary track. 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 There is evidence of bilateral pulmonary emboli without much symptom is being treated with Eliquis. In November patient had a duodenal stent placed at [facility] for all obstruction. Patient's relates that biopsy showed evidence of scar tissue not active cancer. Patient is currently undergoing chemotherapy with pump placement for 46 hours Wednesday through Wednesday every other week. The patient has been tolerating chemotherapy quite well. His relates that he ate wing dings on and Wednesday and developed abdominal bloating and vomiting. He is complaining of epigastric pain. He had appointments with oncology and Dr. Taveras on Wednesday which he kept but was subsequently sent into [facility] emergency center for evaluation because he had a temperature 100.8 and bilirubin had jumped from 0.2 to 1.1. Also noted the patient did have acute diarrhea 2 weeks ago which resolved. Patient denies having any diarrhea at this time. His last bowel movement prior to admission was Wednesday and he did have a bowel movement this morning, both have been formed with no blood or blackness. Patient was found to have temperature max of 100.8, white count was 2, hemoglobin 18.2, platelet count 172. Influenza testing for A and B were negative. Urinalysis was negative for infection. Amylase was 1509 and lipase 14,665. CAT scan of the abdomen and pelvis with contrast revealed intrahepatic bile ducts appear increased compared IN that suggested obstruction and malfunction. Pancreatic head mass increased slightly in size compared to old exam. Large mass in the liver increased slightly compared to old exam. There is increase in the lymph nodes as above. Chest x-ray showed elevated left diaphragm with mild pleural reaction or fluid at the lateral left lung base unchanged. Normal heart. Patient is currently on meropenem. Consults are in place for GI and oncology. Please see the consult note as dictated by nurse practitioner Chinyere Maty. Pleasant 67-year-old gentleman is evaluated his is present. She is discontent with the reading of the computed tomography scan and further reading as been requested. At presentation the patient was feeling very poorly for more than a day without evidence of significant pancreatitis. Receiving prophylactic antibiotic therapy with meropenem given his very long-standing history and current chemotherapy and relative leukopenia. Cultures are in process are negative so far. The patient is responding to hydration and bowel rest well with a marked reduction of his amylase and lipase still is lipase over 5000. Closely monitor by gastroenterology ensure that the duodenal stent is not etiology of the current pancreatitis via an obstructive process from the stent. Cultures are being monitored patient is clinically improving since admission. Oncology team is working with radiology to clarify the CT results. I agree with evaluation, assessment and plan as dictated by nurse practitioner Mrs. Chinyere Rutledge.
[2018-02-02] MEDS: ACETAMINOPHEN IV (For NPO) 1,000 MG in EMPTY BAG 1 BAG IVPB SCH ×2 (02:16→11:08)
[2018-02-02] MEDS: SODIUM CHLORIDE 0.9% 1,000 ML IV SCH ×3 (02:18→19:45)
[2018-02-02] MEDS: MEROPENEM 2 GM in SODIUM CHLORIDE 0.9% 100 ML IVPB SCH ×3 (04:59→21:03)
[2018-02-02] MEDS: LEVOTHYROXINE 100 MCG TAB PO SCH (05:46)
[2018-02-02] MEDS: HYDROmorphone 1 MG/ML 1 ML SYRINGE IVP PRN ×3 (07:14→21:16)
[2018-02-02 09:54] LABS: Basophils % (A) 1 %; Eosinophils # (A) 0.1 k/uL (0-0.7); Eosinophils % (A) 4 %; HGB 10.6 gm/dL (13.0-17.5); Lymphocytes # (A) 0.2 k/uL (1.0-4.8); Lymphocytes % (A) 8 %; MCH 35.5 pg (25.0-35.0); MCHC 34.3 g/dL (31.0-37.0); MCV 103.3 fL (80.0-100.0); Macrocytosis Moderate; Mean Platelet Volume 6.4; Monocytes # (A) 0.2 k/uL (0-1.0); Monocytes % (A) 9 %; Neutrophils % (A) 76 %; Platelet Count 281 k/uL (150-450); RDW 15.7 % (11.5-15.5); WBC 2.6 k/uL (3.8-10.6)
[2018-02-02 10:00] LABS: ALT 35 U/L (21-72); AST 28 U/L (17-59); Albumin 2.7 g/dL (3.5-5.0); Alkaline Phosphatase 89 U/L (38-126); Amylase 263 U/L (30-110); Anion Gap 4 mmol/L; Blood Urea Nitrogen 7 mg/dL (9-20); Calcium 8.3 mg/dL (8.4-10.2); Carbon Dioxide 24 mmol/L (22-30); Chloride 106 mmol/L (98-107); Glucose 118 mg/dL (74-99); Sodium 134 mmol/L (137-145); Total Bilirubin 0.5 mg/dL (0.2-1.3)
[2018-02-02 10:33] LABS: Lipase 3485 U/L (23-300)
[2018-02-02] MEDS: HEPARIN SODIUM,PORCINE 5,000 UNIT/ML 1 ML VIAL SQ SCH (11:08)
[2018-02-02] MEDS: FLUTICASONE 50MCG/SPRAY NASAL 16GM EA NOSTRIL SCH (11:08)
[2018-02-02] MEDS: PANTOPRAZOLE 40 MG/10 ML VIAL IVP SCH (11:08)
[2018-02-02] MEDS: URSODIOL 300 MG CAP PO SCH ×2 (11:09→21:03)
[2018-02-02] MEDS: NYSTATIN 100,000 UNIT/ML SUSP 500,000 UNIT/5 ML CUP PO SCH ×4 (11:09→21:04)
--- NOTE | 2018-02-02 12:37 | P.PN ---
Subjective Progress Note Date: 02/02/18 Principal diagnosis: Acute pancreatitis Feels better. Afebrile. LFTs within normal limits. Lipase improving 3485. Reporting loose bowel movements. Receiving IV antibiotics. Abdominal pain improved. Hungry. Objective - Vital Signs Vital signs: Vital Signs Temp 98.6 F 02/02/18 07:08 Pulse 70 02/02/18 07:08 Resp 16 02/02/18 07:08 BP 144/89 02/02/18 07:08 Pulse Ox 98 02/02/18 07:34 Intake & Output 02/01/18 02/02/18 02/02/18 18:59 06:59 18:59 Intake Total 2700 2100 Balance 2700 2100 Weight 77.8 kg 77.2 kg Intake: Intake, IV Titration 1100 2100 Amount ACETAMINOPHEN IV (For NPO 100 ) 1,000 mg In Empty Bag 1 bag @ 400 mls/hr IVPB Q8H [facility] Rx#:[id number] Meropenem 2 gm In Sodium 100 Chloride 0.9% 100 ml @ 200 mls/hr IVPB Q8H [facility] Rx#:[id number] Sodium Chloride 0.9% 1, 1000 2000 000 ml @ 125 mls/hr IV . Q8H [facility] Rx#:[id number] Oral 1600 - Exam General appearance: The patient is alert, oriented, in no acute distress. HET: Head is normocephalic and atraumatic. Pupils are equal and reactive. Oropharynx is clear without lesions. Neck: Supple without lymphadenopathy. Trachea midline. Heart: S1 S2. Regular rate and rhythm. Lungs: No crackles or wheezes are heard. Abdomen: Soft, very mild midepigastric tenderness, nondistended with bowel sounds. No peritoneal signs. No palpable organomegaly or masses. Extremities: Normal skin color and turgor. No cyanosis, rash, ulceration, clubbing, or edema. Radial and pedal pulses are 2/4 bilaterally. Neurological: No focal deficits. Strength and sensation are grossly intact. - Labs CBC & Chem 7: 02/02/18 09:15 02/02/18 09:15 Labs: Abnormal Lab Results - Last 24 Hours (Table) 02/02/18 02/02/18 Range/Units 09:15 09:15 WBC 2.6 L (3.8-10.6) k/uL RBC 3.00 L (4.30-5.90) m/uL Hgb 10.6 L (13.0-17.5) gm/dL Hct 31.0 L (39.0-53.0) % MCV 103.3 H (80.0-100.0) fL MCH 35.5 H (25.0-35.0) pg RDW 15.7 H (11.5-15.5) % Lymphocytes # 0.2 L (1.0-4.8) k/uL Sodium 134 L (137-145) mmol/L BUN 7 L (9-20) mg/dL Creatinine 0.60 L (0.66-1.25) mg/dL Glucose 118 H (74-99) mg/dL Calcium 8.3 L (8.4-10.2) mg/dL Total Protein 5.0 L (6.3-8.2) g/dL Albumin 2.7 L (3.5-5.0) g/dL Amylase 263 H (30-110) U/L Lipase 3485 H (23-300) U/L Microbiology - Last 24 Hours (Table) 01/31/18 18:05 Urine Culture - Final Urine,Voided 01/31/18 17:05 Blood Culture - Preliminary Blood No Growth after 24 hours Assessment and Plan (1) Acute pancreatitis Narrative/Plan: 67-year-old gentleman with a history of pancreatic ampullary carcinoma presently on chemotherapy, pulmonary embolism maintained on anticoagulation, and recent hospitalization November 2017 for duodenal obstruction secondary to adhesions status post duodenal stent placement November 2017 at [facility] presents with acute epigastric pain nausea vomiting with elevated pancreatic enzymes consistent with acute pancreatitis. Patient's clinical presentation appears to be more consistent with acute pancreatitis then recurrence of duodenal obstruction. CT abdomen and pelvis reported no evidence of bowel obstruction LFTs within normal limits and pancreatic enzymes are improving. 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 Full liquids. Daily CBC CMP amylase lipase. We'll continue to follow. Assessment and plan a care discussed with Dr. Girard
--- NOTE | 2018-02-02 13:51 | P.PN ---
Subjective Progress Note Date: 02/02/18 Principal diagnosis: fever, just finished course of treatment for metastatic pancreatic adenocarcinoma Pt seen in f/u, he was ambulating in the hallway today, abd pain is little better, no fever, nausea, vomiting, had a very soft BM, no blood. No other c/ o. He is on clear liquids. Objective - Vital Signs Vital signs: Vital Signs Temp 98.6 F 02/02/18 07:08 Pulse 70 02/02/18 07:08 Resp 16 02/02/18 07:08 BP 144/89 02/02/18 07:08 Pulse Ox 98 02/02/18 07:34 Intake & Output 02/01/18 02/02/18 02/02/18 18:59 06:59 18:59 Intake Total 2700 2100 Balance 2700 2100 Weight 77.8 kg 77.2 kg Intake: Intake, IV Titration 1100 2100 Amount ACETAMINOPHEN IV (For NPO 100 ) 1,000 mg In Empty Bag 1 bag @ 400 mls/hr IVPB Q8H [facility] Rx#:[id number] Meropenem 2 gm In Sodium 100 Chloride 0.9% 100 ml @ 200 mls/hr IVPB Q8H [facility] Rx#:[id number] Sodium Chloride 0.9% 1, 1000 2000 000 ml @ 125 mls/hr IV . Q8H [facility] Rx#:[id number] Oral 1600 - Constitutional General appearance: Present: average body habitus, cooperative, no acute distress - EENT Eyes: Present: anicteric sclerae - Respiratory Respiratory: bilateral: CTA - Cardiovascular Heart sounds: normal: S1, S2 - Peripheral edema leg Peripheral Edema: bilateral: None - Gastrointestinal General gastrointestinal: Present: normal bowel sounds, soft Localized gastrointestinal: tender: epigastric periumbilical (no rebound) - Integumentary Integumentary: Present: normal - Neurologic Neurologic: Present: CNII-XII intact - Musculoskeletal Musculoskeletal: Present: strength equal bilaterally - Psychiatric Psychiatric: Present: A&O x's 3, appropriate affect, intact judgment & insight - Labs CBC & Chem 7: 02/02/18 09:15 02/02/18 09:15 Labs: Abnormal Lab Results - Last 24 Hours (Table) 02/02/18 02/02/18 Range/Units 09:15 09:15 WBC 2.6 L (3.8-10.6) k/uL RBC 3.00 L (4.30-5.90) m/uL Hgb 10.6 L (13.0-17.5) gm/dL Hct 31.0 L (39.0-53.0) % MCV 103.3 H (80.0-100.0) fL MCH 35.5 H (25.0-35.0) pg RDW 15.7 H (11.5-15.5) % Lymphocytes # 0.2 L (1.0-4.8) k/uL Sodium 134 L (137-145) mmol/L BUN 7 L (9-20) mg/dL Creatinine 0.60 L (0.66-1.25) mg/dL Glucose 118 H (74-99) mg/dL Calcium 8.3 L (8.4-10.2) mg/dL Total Protein 5.0 L (6.3-8.2) g/dL Albumin 2.7 L (3.5-5.0) g/dL Amylase 263 H (30-110) U/L Lipase 3485 H (23-300) U/L Microbiology - Last 24 Hours (Table) 01/31/18 18:05 Urine Culture - Final Urine,Voided 01/31/18 17:05 Blood Culture - Preliminary Blood No Growth after 24 hours Assessment and Plan (1) Elevated amylase and lipase Current Visit: Yes Status: Acute Priority: High Code(s): R74.8 - ABNORMAL LEVELS OF OTHER SERUM ENZYMES SNOMED Code(s): 191146553 (2) Pancreatic cancer Narrative/Plan: Pt just completed 10 cycles of treatment. Last CT 01/03/18 showed stable disease. Any minor changes noted on CT at this time would be considered due to acute process/inflammation and NOT disease progression at this time. F/U CT once current condition resolved to re-evaluate any concerning areas. Current Visit: Yes Status: Chronic Priority: Medium Code(s): C25.9 - MALIGNANT NEOPLASM OF PANCREAS, UNSPECIFIED SNOMED Code(s): 221795081 (3) Acute biliary pancreatitis Current Visit: Yes Status: Acute Priority: High Code(s): K85.1 - BILIARY ACUTE PANCREATITIS * DO NOT USE * SNOMED Code(s): 718894894 (4) Fever Narrative/Plan: no fevers overnight, cont to monitor Current Visit: Yes Status: Acute Priority: High Code(s): R50.9 - FEVER, UNSPECIFIED SNOMED Code(s): 986398188 (5) Pulmonary embolism Narrative/Plan: cont anticoagulation Current Visit: No Status: Chronic Priority: Medium Code(s): I26.99 - OTHER PULMONARY EMBOLISM WITHOUT ACUTE COR PULMONALE SNOMED Code(s): 28485980 Plan: GI following for pancreatitis.
--- NOTE | 2018-02-02 14:53 | PN ---
PROGRESS NOTE DATE OF SERVICE: 02/02/2018 This is a 67-year-old gentleman who was admitted with abdominal discomfort and vomiting with possible acute features of acute pancreatitis, also had a fever and possible sepsis. Also patient on empiric antibiotics. Cultures are negative so far. LFTs improving. The patient has multiple complex medical issues previously with multiple stent placements. Also no chest pain. No palpitations. Gastroenterology following the patient closely. The diet patient is currently on clear liquids, being advanced to full liquids at this time. PHYSICAL EXAM: Alert and oriented x3. Pulse 70, blood pressure 145/89, respirations 16, temperature 98.2, pulse ox 98%. HEENT: Conjunctivae normal. No icterus. Neck is no jugular venous distention. No lymph node enlargement. CARDIOVASCULAR SYSTEM: S1, S2, muffled. No S3, no S4. RESPIRATION: Breath sounds diminished at the bases. No rhonchi. No crackles. Abdomen is soft, nontender, no mass palpable. LEGS: No edema, no swelling. NERVOUS SYSTEM: No focal deficits. LAB STUDIES: WBC is 2.2, hemoglobin is 10.6, sodium 134. Otherwise, amylase 236 and lipase is 3485. ASSESSMENT: 1. Abdominal pain, possible acute pancreatitis. 2. Fever, vomiting, possible acute sepsis. 3. Leukopenia. 4. Dehydration with elevated hemoglobin, present on admission. 5. Pancreatobiliary neck cancer, status post multiple stents and chemotherapy. 6. History of cholangitis and sepsis previously. 7. History of duodenal stenosis, stent placed in [facility] previously. 8. Hypothyroidism. 9. Multiple episodes of cholangitis. 10.History of pulmonary embolus. 11.History of testicular cancer. 12.History of metastasis of the liver. 13.FULL CODE. RECOMMENDATIONS: Recommend to continue the rest of the medications and also resume the anticoagulation for gastroenteritis, not contemplating any procedure presently. Advance diet and prognosis guarded. Repeat labs. Further recommendations to follow. MMODL / IJN: [id number] /
[2018-02-02] MEDS: APIXABAN 5 MG TAB PO SCH ×2 (16:41→21:04)
[2018-02-02] MEDS: PANTOPRAZOLE 40 MG TABLET PO SCH (16:41)
[2018-02-02] MEDS: ACETAMINOPHEN TAB 500 MG TAB PO SCH (18:23)
[2018-02-03] MEDS: ACETAMINOPHEN TAB 500 MG TAB PO SCH ×3 (01:13→15:13)
[2018-02-03] MEDS: SODIUM CHLORIDE 0.9% 1,000 ML IV SCH ×3 (03:00→17:10)
[2018-02-03] MEDS: MEROPENEM 2 GM in SODIUM CHLORIDE 0.9% 100 ML IVPB SCH ×3 (05:07→22:51)
[2018-02-03] MEDS: LEVOTHYROXINE 100 MCG TAB PO SCH (06:04)
[2018-02-03 07:15] LABS: Anisocytosis Slight; Basophils % (A) 1 %; Eosinophils # (A) 0.2 k/uL (0-0.7); Eosinophils % (A) 8 %; HGB 11.1 gm/dL (13.0-17.5); Lymphocytes # (A) 0.4 k/uL (1.0-4.8); Lymphocytes % (A) 16 %; MCH 34.5 pg (25.0-35.0); MCHC 32.7 g/dL (31.0-37.0); MCV 105.6 fL (80.0-100.0); Macrocytosis Moderate; Mean Platelet Volume 6.7; Monocytes # (A) 0.4 k/uL (0-1.0); Monocytes % (A) 15 %; Neutrophils # (A) 1.3 k/uL (1.3-7.7); Neutrophils % (A) 55 %; Platelet Count 309 k/uL (150-450); RBC 3.23 m/uL (4.30-5.90); RDW 16.2 % (11.5-15.5); WBC 2.3 k/uL (3.8-10.6)
[2018-02-03 07:34] LABS: ALT 32 U/L (21-72); AST 23 U/L (17-59); Albumin 2.9 g/dL (3.5-5.0); Alkaline Phosphatase 101 U/L (38-126); Amylase 97 U/L (30-110); Anion Gap 5 mmol/L; Blood Urea Nitrogen 4 mg/dL (9-20); Calcium 8.7 mg/dL (8.4-10.2); Carbon Dioxide 25 mmol/L (22-30); Chloride 106 mmol/L (98-107); Glucose 86 mg/dL (74-99); Lipase 655 U/L (23-300); Potassium 3.7 mmol/L (3.5-5.1); Sodium 136 mmol/L (137-145); Total Bilirubin 0.4 mg/dL (0.2-1.3); Total Protein 5.5 g/dL (6.3-8.2)
[2018-02-03] MEDS: APIXABAN 5 MG TAB PO SCH ×2 (07:44→22:50)
[2018-02-03] MEDS: URSODIOL 300 MG CAP PO SCH ×2 (07:44→22:51)
[2018-02-03] MEDS: PANTOPRAZOLE 40 MG TABLET PO SCH ×2 (07:44→17:09)
[2018-02-03] MEDS: NYSTATIN 100,000 UNIT/ML SUSP 500,000 UNIT/5 ML CUP PO SCH ×4 (07:45→22:50)
[2018-02-03] MEDS: FLUTICASONE 50MCG/SPRAY NASAL 16GM EA NOSTRIL SCH (07:45)
--- NOTE | 2018-02-03 12:04 | P.PN ---
Subjective Progress Note Date: 02/03/18 Principal diagnosis: fever, just finished course of treatment for metastatic pancreatic adenocarcinoma Pt seen in f/u, abd pain is better, no fever, nausea, vomiting, stool was loose today but not diarrhea, no blood, tolerating diet, ambulatory, no other c/o. Objective - Vital Signs Vital signs: Vital Signs Temp 98.3 F 02/03/18 07:00 Pulse 73 02/03/18 07:00 Resp 16 02/03/18 07:40 BP 142/89 02/03/18 07:00 Pulse Ox 98 02/03/18 07:00 Intake & Output 02/02/18 02/03/18 02/03/18 18:59 06:59 18:59 Intake Total 1000 1484 360 Balance 1000 1484 360 Weight 77.5 kg Intake: IV 1000 4 Sodium Chloride 0.9% 1, 1000 4 000 ml @ 125 mls/hr IV . Q8H [facility] Rx#:[id number] Intake, IV Titration 1000 Amount Sodium Chloride 0.9% 1, 1000 000 ml @ 125 mls/hr IV . Q8H [facility] Rx#:[id number] Oral 480 360 Other: # Voids 3 - Constitutional General appearance: Present: average body habitus, cooperative, no acute distress - EENT Eyes: Present: anicteric sclerae, EOMI ENT: Present: hearing grossly normal - Respiratory Respiratory: bilateral: CTA - Cardiovascular Heart sounds: normal: S1, S2 Abnormal Heart Sounds: Absent: systolic murmur, diastolic murmur, rub, S3 Gallop , S4 Gallop, click, other - Peripheral edema leg Peripheral Edema: bilateral: None - Gastrointestinal General gastrointestinal: Present: normal bowel sounds, soft - Integumentary Integumentary: Present: normal - Neurologic Neurologic: Present: CNII-XII intact - Musculoskeletal Musculoskeletal: Present: strength equal bilaterally - Psychiatric Psychiatric: Present: A&O x's 3, appropriate affect, intact judgment & insight - Labs CBC & Chem 7: 02/03/18 06:47 02/03/18 06:47 Labs: Abnormal Lab Results - Last 24 Hours (Table) 02/03/18 02/03/18 Range/Units 06:47 06:47 WBC 2.3 L (3.8-10.6) k/uL RBC 3.23 L (4.30-5.90) m/uL Hgb 11.1 L (13.0-17.5) gm/dL Hct 34.0 L (39.0-53.0) % MCV 105.6 H (80.0-100.0) fL RDW 16.2 H (11.5-15.5) % Lymphocytes # 0.4 L (1.0-4.8) k/uL Sodium 136 L (137-145) mmol/L BUN 4 L (9-20) mg/dL Total Protein 5.5 L (6.3-8.2) g/dL Albumin 2.9 L (3.5-5.0) g/dL Lipase 655 H (23-300) U/L Microbiology - Last 24 Hours (Table) 01/31/18 17:05 Blood Culture - Preliminary Blood No Growth after 48 hours Assessment and Plan (1) Elevated amylase and lipase Narrative/Plan: Improving with conservative management. GI following Current Visit: Yes Status: Acute Priority: High Code(s): R74.8 - ABNORMAL LEVELS OF OTHER SERUM ENZYMES SNOMED Code(s): 520708296 (2) Pancreatic cancer Narrative/Plan: Pt just completed 10 cycles of treatment. Last CT 01/03/18 showed stable disease. Treatment F/U CT will be ordered outpatient once current condition resolved. This will evaluate treatment efficacy and the concerning areas on recent scan during acute illness. Current Visit: Yes Status: Chronic Priority: Medium Code(s): C25.9 - MALIGNANT NEOPLASM OF PANCREAS, UNSPECIFIED SNOMED Code(s): 659009821 (3) Acute biliary pancreatitis Current Visit: Yes Status: Acute Priority: High Code(s): K85.1 - BILIARY ACUTE PANCREATITIS * DO NOT USE * SNOMED Code(s): 550251753 (4) Fever Current Visit: Yes Status: Resolved Priority: High Code(s): R50.9 - FEVER , UNSPECIFIED SNOMED Code(s): 852183042 (5) Pulmonary embolism Narrative/Plan: On eliquis, Hgb stable, continue Current Visit: No Status: Chronic Priority: Medium Code(s): I26.99 - OTHER PULMONARY EMBOLISM WITHOUT ACUTE COR PULMONALE SNOMED Code(s): 02819976
--- NOTE | 2018-02-03 13:15 | P.PN ---
Subjective Progress Note Date: 02/03/18 Principal diagnosis: Acute pancreatitis Feels better. Afebrile. LFTs within normal limits. Lipase improving 655 . Reporting loose bowel movements. Receiving IV antibiotics. Abdominal pain improved. Hungry. Objective - Vital Signs Vital signs: Vital Signs Temp 98.3 F 02/03/18 07:00 Pulse 73 02/03/18 07:00 Resp 16 02/03/18 07:40 BP 142/89 02/03/18 07:00 Pulse Ox 98 02/03/18 07:00 Intake & Output 02/02/18 02/03/18 02/03/18 18:59 06:59 18:59 Intake Total 1000 1484 360 Balance 1000 1484 360 Weight 77.5 kg Intake: IV 1000 4 Sodium Chloride 0.9% 1, 1000 4 000 ml @ 125 mls/hr IV . Q8H [facility] Rx#:[id number] Intake, IV Titration 1000 Amount Sodium Chloride 0.9% 1, 1000 000 ml @ 125 mls/hr IV . Q8H [facility] Rx#:[id number] Oral 480 360 Other: # Voids 3 - Exam General appearance: The patient is alert, oriented, in no acute distress. HET: Head is normocephalic and atraumatic. Pupils are equal and reactive. Oropharynx is clear without lesions. Neck: Supple without lymphadenopathy. Trachea midline. Heart: S1 S2. Regular rate and rhythm. Lungs: No crackles or wheezes are heard. Abdomen: Soft, very mild midepigastric tenderness, nondistended with bowel sounds. No peritoneal signs. No palpable organomegaly or masses. Extremities: Normal skin color and turgor. No cyanosis, rash, ulceration, clubbing, or edema. Radial and pedal pulses are 2/4 bilaterally. Neurological: No focal deficits. Strength and sensation are grossly intact. - Labs CBC & Chem 7: 02/03/18 06:47 02/03/18 06:47 Labs: Abnormal Lab Results - Last 24 Hours (Table) 02/03/18 02/03/18 Range/Units 06:47 06:47 WBC 2.3 L (3.8-10.6) k/uL RBC 3.23 L (4.30-5.90) m/uL Hgb 11.1 L (13.0-17.5) gm/dL Hct 34.0 L (39.0-53.0) % MCV 105.6 H (80.0-100.0) fL RDW 16.2 H (11.5-15.5) % Lymphocytes # 0.4 L (1.0-4.8) k/uL Sodium 136 L (137-145) mmol/L BUN 4 L (9-20) mg/dL Total Protein 5.5 L (6.3-8.2) g/dL Albumin 2.9 L (3.5-5.0) g/dL Lipase 655 H (23-300) U/L Microbiology - Last 24 Hours (Table) 01/31/18 17:05 Blood Culture - Preliminary Blood No Growth after 48 hours Assessment and Plan (1) Acute pancreatitis Narrative/Plan: 67-year-old gentleman with a 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 Patient's clinical presentation appears to be more consistent with acute pancreatitis then recurrence of duodenal obstruction. CT abdomen and pelvis reported no evidence of bowel obstruction LFTs within normal limits and pancreatic enzymes are improving. 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 Continue with symptomatic supportive measures and IV hydration. 2. Daily CMP CBC amylase lipase. Protonix 40 mg IV twice daily. Actigall 300 mg twice a day. 3. Resume anticoagulation inpatient endoscopic exams are not planned at this time. 4. Low-fat diet as tolerated. DC per medicine. Assessment and plan a care discussed with Dr. Girard
--- NOTE | 2018-02-03 19:06 | PN ---
PROGRESS NOTE DATE OF SERVICE: 02/03/2018 This 67-year-old gentleman who was admitted after abdominal pain with possible acute pancreatitis is improving significantly. No chest pain. No palpitations. No fever. PHYSICAL EXAMINATION: Alert and oriented x3. Pulse 83, pressure 142/89, respirations 16, temperature 98.4, pulse ox 99% on room air. HEENT: Conjunctivae normal. NECK: No jugular venous distention. CARDIOVASCULAR SYSTEM: S1, S2 muffled. RESPIRATORY SYSTEM: Breath sounds diminished at the bases. No rhonchi. No crackles. ABDOMEN: Soft, non-tender. No mass palpable. LEGS: No edema. No swelling. NERVOUS SYSTEM: No focal deficit. LABS: WBC 2.3, hemoglobin 11.1, MCV 105.6. Amylase is 97 and lipase 655. ASSESSMENT: 1. Abdominal pain; possible acute pancreatitis. 2. Fever, vomiting; possible acute sepsis. 3. Leukopenia. 4. Dehydration with elevated hemoglobin, present on admission. 5. Pancreaticobiliary neck cancer, status post multiple stents and chemotherapy. 6. History of cholangitis and sepsis previously. 7. 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 8. Hypothyroidism. 9. Multiple episodes of cholangitis. 10.History of pulmonary embolism. 11.History of testicular cancer. 12.History of metastasis of the liver. 13.FULL CODE. RECOMMENDATIONS AND DISCUSSION: I recommend to continue current medications, continue with symptomatic treatment. Otherwise at this time I recommend continuing the antibiotics. Repeat labs. Closely follow with multiple consultants. Advance diet per Gastroenterology. Further recommendations to follow. Increase ambulation. DVT prophylaxis. MMODL / IJN: [id number] /
[2018-02-03] MEDS: HYDROmorphone 1 MG/ML 1 ML SYRINGE IVP PRN (22:51)
[2018-02-04] MEDS: ACETAMINOPHEN TAB 500 MG TAB PO SCH ×3 (01:10→17:05)
[2018-02-04] MEDS: SODIUM CHLORIDE 0.9% 1,000 ML IV SCH ×3 (04:06→20:31)
[2018-02-04] MEDS: MEROPENEM 2 GM in SODIUM CHLORIDE 0.9% 100 ML IVPB SCH ×3 (05:26→20:27)
[2018-02-04] MEDS: LEVOTHYROXINE 100 MCG TAB PO SCH (05:27)
[2018-02-04] MEDS: URSODIOL 300 MG CAP PO SCH ×2 (07:26→20:28)
[2018-02-04] MEDS: NYSTATIN 100,000 UNIT/ML SUSP 500,000 UNIT/5 ML CUP PO SCH ×4 (07:27→20:28)
[2018-02-04] MEDS: FLUTICASONE 50MCG/SPRAY NASAL 16GM EA NOSTRIL SCH (07:27)
[2018-02-04] MEDS: PANTOPRAZOLE 40 MG TABLET PO SCH ×2 (07:27→17:03)
[2018-02-04] MEDS: APIXABAN 5 MG TAB PO SCH ×2 (07:27→20:28)
[2018-02-04 07:34] LABS: Basophils % (A) 1 %; Eosinophils # (A) 0.2 k/uL (0-0.7); Eosinophils % (A) 8 %; HCT 34.7 % (39.0-53.0); HGB 11.7 gm/dL (13.0-17.5); Lymphocytes # (A) 0.5 k/uL (1.0-4.8); Lymphocytes % (A) 17 %; MCHC 33.8 g/dL (31.0-37.0); MCV 103.4 fL (80.0-100.0); Macrocytosis Moderate; Mean Platelet Volume 6.3; Monocytes # (A) 0.3 k/uL (0-1.0); Monocytes % (A) 10 %; Neutrophils # (A) 1.8 k/uL (1.3-7.7); Neutrophils % (A) 61 %; Platelet Count 326 k/uL (150-450); RBC 3.36 m/uL (4.30-5.90); RDW 15.9 % (11.5-15.5); WBC 2.9 k/uL (3.8-10.6)
[2018-02-04 08:41] LABS: ALT 40 U/L (21-72); AST 24 U/L (17-59); Alkaline Phosphatase 101 U/L (38-126); Amylase 105 U/L (30-110); Anion Gap 7 mmol/L; Blood Urea Nitrogen 4 mg/dL (9-20); Carbon Dioxide 24 mmol/L (22-30); Chloride 107 mmol/L (98-107); Glucose 90 mg/dL (74-99); Lipase 889 U/L (23-300); Potassium 3.8 mmol/L (3.5-5.1); Sodium 138 mmol/L (137-145); Total Bilirubin 0.3 mg/dL (0.2-1.3); Total Protein 5.6 g/dL (6.3-8.2)
--- NOTE | 2018-02-04 20:16 | PN ---
PROGRESS NOTE DATE OF SERVICE: This 67-year-old gentleman who was admitted with abdominal pain with possible acute pancreatitis also had fever, vomiting and possible acute sepsis. The patient is being closely monitored at this time. No chest pain. No palpitations. No fever. PHYSICAL EXAMINATION: Alert and oriented x3. Pulse 98, blood pressure 137/80, respiration 18, temperature 98.4, pulse ox 97% on room air. HEENT: Conjunctivae normal. NECK: No jugular venous distention. CARDIOVASCULAR SYSTEM: S1, S2 muffled. RESPIRATORY SYSTEM: Breath sounds diminished at the bases. No rhonchi. No crackles. ABDOMEN: Soft, non-tender. No mass palpable. LEGS: No edema. No swelling. NERVOUS SYSTEM: No focal deficit. LABS: WBC 2.9, hemoglobin 11.7. Total protein is 5.6. Lipase is 889. Amylase is 105. ASSESSMENT: 1. Abdominal pain possible acute pancreatitis. 2. Fever and vomiting, possible acute sepsis. 3. Leukopenia. 4. Dehydration with elevated hemoglobin, present on admission. 5. Biliary duct cancer, status post multiple stents and chemotherapy. 6. History of cholangitis and sepsis previously. 7. History of duodenal stenosis and stent placed in [facility] previously. 8. Hypothyroidism. 9. Multiple episodes of cholangitis. 10.History of pulmonary embolism. 11.History of testicular cancer. 12.History of metastasis of liver. 13.FULL CODE. RECOMMENDATIONS AND DISCUSSION: I recommend to continue current medications, continue with the monitoring, symptomatic treatment. Otherwise at this time I would recommend continuing the current medications. Continue with apixaban. Continue with empiric antibiotics. The cultures are negative so far. Repeat labs. Continue the current diet. Guarded prognosis. Further recommendations to follow. MMODL / IJN: [id number] /
[2018-02-04] MEDS: HYDROmorphone 1 MG/ML 1 ML SYRINGE IVP PRN (20:28)
--- NOTE | 2018-02-05 00:48 | P.PN ---
Subjective Progress Note Date: 02/04/18 This is a 67-year-old male patient well known to ID service as he has had previous bouts of E. coli sepsis related to obstruction of his biliary track. 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 There is evidence of bilateral pulmonary emboli without much symptom is being treated with Eliquis. In November patient had a duodenal stent placed at [facility] for all obstruction. Patient's relates that biopsy showed evidence of scar tissue not active cancer. Patient is currently undergoing chemotherapy with pump placement for 46 hours Wednesday through Wednesday every other week. The patient has been tolerating chemotherapy quite well. His relates that he ate wing dings on and Wednesday and developed abdominal bloating and vomiting. He is complaining of epigastric pain. He had appointments with oncology and Dr. Taveras on Wednesday which he kept but was subsequently sent into [facility] emergency center for evaluation because he had a temperature 100.8 and bilirubin had jumped from 0.2 to 1.1. Also noted the patient did have acute diarrhea 2 weeks ago which resolved. Patient denies having any diarrhea at this time. His last bowel movement prior to admission was Wednesday and he did have a bowel movement this morning, both have been formed with no blood or blackness. Patient was found to have temperature max of 100.8, white count was 2, hemoglobin 18.2, platelet count 172. Influenza testing for A and B were negative. Urinalysis was negative for infection. Amylase was 1509 and lipase 14,665. CAT scan of the abdomen and pelvis with contrast revealed intrahepatic bile ducts appear increased compared IN that suggested obstruction and malfunction. Pancreatic head mass increased slightly in size compared to old exam. Large mass in the liver increased slightly compared to old exam. There is increase in the lymph nodes as above. Chest x-ray showed elevated left diaphragm with mild pleural reaction or fluid at the lateral left lung base unchanged. Normal heart. Patient is currently on meropenem. Consults are in place for GI and oncology. 02/04/2018 patient is feeling better. Is having a bit of fullness to his abdomen after his evening meal other than this he is feeling relatively well. He is getting an occasional sensation almost like a chill that very brief. Temperature max is 99 with no significant fever rigors or new symptoms. Denies much abdominal pain appetite is slowly improving with his advanced diet. As noted the amylase is normalized but the lipase has increased somewhat today. Objective - Vital Signs Vital signs: Vital Signs Temp 99.1 F 02/04/18 19:05 Pulse 86 02/04/18 19:05 Resp 16 02/04/18 19:05 BP 146/85 02/04/18 19:05 Pulse Ox 99 02/04/18 19:05 Intake & Output 02/04/18 02/04/18 02/05/18 06:59 18:59 06:59 Intake Total 2480 1270 Balance 2480 1270 Weight 77 kg Intake: IV 2000 Sodium Chloride 0.9% 1, 2000 000 ml @ 125 mls/hr IV . Q8H MAGDY Rx#:[id number] Oral 480 1270 Other: # Voids 2 1 - Exam Gen: This is a 67-year-old male. He is resting in bed appears to be comfortable. HEENT: Head is atraumatic, normocephalic. Pupils equal, round. Sclerae is anicteric. NECK: Supple. No JVD. No lymphadenopathy. No thyromegaly. LUNGS: Clear to auscultation. No wheezes or rhonchi. No intercostal retractions. HEART: Regular rate and rhythm. No murmur. Port to the left upper anterior chest with no surrounding erythema or tenderness. ABDOMEN: Soft. Bowel sounds are present. No masses. Epigastric tenderness. EXTREMITIES: No pedal edema. No calf tenderness. Dorsalis pedis +2 bilaterally. NEUROLOGICAL: Patient is awake, alert and oriented x3. - Labs CBC & Chem 7: 02/04/18 07:24 02/04/18 07:24 Labs: Abnormal Lab Results - Last 24 Hours (Table) 02/04/18 02/04/18 Range/Units 07:24 07:24 WBC 2.9 L (3.8-10.6) k/uL RBC 3.36 L (4.30-5.90) m/uL Hgb 11.7 L (13.0-17.5) gm/dL Hct 34.7 L (39.0-53.0) % MCV 103.4 H (80.0-100.0) fL RDW 15.9 H (11.5-15.5) % Lymphocytes # 0.5 L (1.0-4.8) k/uL BUN 4 L (9-20) mg/dL Total Protein 5.6 L (6.3-8.2) g/dL Albumin 3.0 L (3.5-5.0) g/dL Lipase 889 H (23-300) U/L Microbiology - Last 24 Hours (Table) 01/31/18 17:05 Blood Culture - Preliminary Blood No Growth after 96 hours Laboratory Results WBC 2.9 k/uL (3.8-10.6) L 02/04/18 07:24 RBC 3.36 m/uL (4.30-5.90) L 02/04/18 07:24 Hgb 11.7 gm/dL (13.0-17.5) L 02/04/18 07:24 Hct 34.7 % (39.0-53.0) L 02/04/18 07:24 MCV 103.4 fL (80.0-100.0) H 02/04/18 07:24 MCH 35.0 pg (25.0-35.0) 02/04/18 07:24 MCHC 33.8 g/dL (31.0-37.0) 02/04/18 07:24 RDW 15.9 % (11.5-15.5) H 02/04/18 07:24 Plt Count 326 k/uL (150-450) 02/04/18 07:24 Neutrophils % 61 % 02/04/18 07:24 Lymphocytes % 17 % 02/04/18 07:24 Monocytes % 10 % 02/04/18 07:24 Eosinophils % 8 % 02/04/18 07:24 Basophils % 1 % 02/04/18 07:24 Neutrophils # 1.8 k/uL (1.3-7.7) 02/04/18 07:24 Lymphocytes # 0.5 k/uL (1.0-4.8) L 02/04/18 07:24 Monocytes # 0.3 k/uL (0-1.0) 02/04/18 07:24 Eosinophils # 0.2 k/uL (0-0.7) 02/04/18 07:24 Basophils # 0.0 k/uL (0-0.2) 02/04/18 07:24 Anisocytosis Slight 02/03/18 06:47 Macrocytosis Moderate 02/04/18 07:24 PT 10.8 sec (9.0-12.0) 01/31/18 17:05 INR 1.0 (<1.2) 01/31/18 17:05 APTT 25.8 sec (22.0-30.0) 01/31/18 17:05 Sodium 138 mmol/L (137-145) 02/04/18 07:24 Potassium 3.8 mmol/L (3.5-5.1) 02/04/18 07:24 Chloride 107 mmol/L (98-107) 02/04/18 07:24 Carbon Dioxide 24 mmol/L (22-30) 02/04/18 07:24 Anion Gap 7 mmol/L 02/04/18 07:24 BUN 4 mg/dL (9-20) L 02/04/18 07:24 Creatinine 0.67 mg/dL (0.66-1.25) 02/04/18 07:24 Est GFR (CKD-EPI)AfAm >90 (>60 ml/min/1.73 sqM) 02/04/18 07:24 Est GFR (CKD-EPI)NonAf >90 (>60 ml/min/1.73 sqM) 02/04/18 07:24 Glucose 90 mg/dL (74-99) 02/04/18 07:24 Plasma Lactic Acid Paddy 1.1 mmol/L (0.7-2.0) 01/31/18 17:05 Calcium 9.0 mg/dL (8.4-10.2) 02/04/18 07:24 Total Bilirubin 0.3 mg/dL (0.2-1.3) 02/04/18 07:24 AST 24 U/L (17-59) 02/04/18 07:24 ALT 40 U/L (21-72) 02/04/18 07:24 Alkaline Phosphatase 101 U/L (38-126) 02/04/18 07:24 Total Protein 5.6 g/dL (6.3-8.2) L 02/04/18 07:24 Albumin 3.0 g/dL (3.5-5.0) L 02/04/18 07:24 Amylase 105 U/L (30-110) 02/04/18 07:24 Lipase 889 U/L (23-300) H 02/04/18 07:24 Urine Color Yellow 01/31/18 18:05 Urine Appearance Clear (Clear) 01/31/18 18:05 Urine pH 6.5 (5.0-8.0) 01/31/18 18:05 Ur Specific [place] 1.021 (1.001-1.035) 01/31/18 18:05 Urine Protein 1+ (Negative) H 01/31/18 18:05 Urine Glucose (UA) Negative (Negative) 01/31/18 18:05 Urine Ketones Negative (Negative) 01/31/18 18:05 Urine Blood Negative (Negative) 01/31/18 18:05 Urine Nitrite Negative (Negative) 01/31/18 18:05 Urine Bilirubin Negative (Negative) 01/31/18 18:05 Urine Urobilinogen 3.0 mg/dL (<2.0) 01/31/18 18:05 Ur Leukocyte Esterase Negative (Negative) 01/31/18 18:05 Urine RBC 5 /hpf (0-5) 01/31/18 18:05 Urine WBC 1 /hpf (0-5) 01/31/18 18:05 Ur Squamous Epith Cells <1 /hpf (0-4) 01/31/18 18:05 Hyaline Casts 1 /lpf (0-2) 01/31/18 18:05 Urine Mucus Rare /hpf (None) H 01/31/18 18:05 C. difficile (EIA) Intrp Negative (Negative) 02/02/18 19:42 Influenza Type A RNA Not Detected (Not Detectd) 01/31/18 17:05 Influenza Type B (PCR) Not Detected (Not Detectd) 01/31/18 17:05 Microbiology 01/31/18 17:05 Blood Blood Culture - Preliminary No Growth after 96 hours 01/31/18 18:05 Urine,Voided Urine Culture - Final Assessment and Plan (1) Acute biliary pancreatitis Narrative/Plan: Pleasant 67-year-old gentleman is evaluated his is present. She is discontent with the reading of the computed tomography scan and further reading as been requested. At presentation the patient was feeling very poorly for more than a day without evidence of significant pancreatitis. Receiving prophylactic antibiotic therapy with meropenem given his very long-standing history and current chemotherapy and relative leukopenia. Cultures are in process are negative so far. The patient is responding to hydration and bowel rest well with a marked reduction of his amylase and lipase still is lipase over 5000. Closely monitor by gastroenterology ensure that the duodenal stent is not etiology of the current pancreatitis via an obstructive process from the stent. Cultures are being monitored patient is clinically improving since admission. Discontinued and had improvement of his status. Amylase is normalized, lipase is much improved but did increase some today. Continue with his advancing diet. He is having no nausea or emesis. Cultures are negative. He is on antimicrobial therapy at the moment given his complex history, but it appears that the pancreatic duct dysfunction is etiology of the current abnormality and he is having rapid improvement. With his discuss the findings with the oncologist and likely will have chemotherapy on Wednesday instead of Wednesday. Current Visit: Yes Status: Acute Priority: High Code(s): K85.1 - BILIARY ACUTE PANCREATITIS * DO NOT USE * SNOMED Code(s): 462143953
[2018-02-05] MEDS: SODIUM CHLORIDE 0.9% 1,000 ML IV SCH ×3 (02:10→17:23)
[2018-02-05] MEDS: ACETAMINOPHEN TAB 500 MG TAB PO SCH ×3 (02:10→15:12)
--- NOTE | 2018-02-05 05:24 | P.PN ---
Subjective Progress Note Date: 02/04/18 Principal diagnosis: Abdominal pain, acute pancreatitis Patient lying in bed, reporting that her abdominal pain is improved. He is tolerating his diet. Objective - Vital Signs Vital signs: Vital Signs Temp 98.0 F 02/05/18 01:01 Pulse 70 02/05/18 01:01 Resp 18 02/05/18 01:01 BP 123/81 02/05/18 01:01 Pulse Ox 98 02/05/18 01:01 Intake & Output 02/04/18 02/04/18 02/05/18 06:59 18:59 06:59 Intake Total 2480 1270 540 Balance 2480 1270 540 Weight 77 kg 77 kg Intake: IV 2000 Sodium Chloride 0.9% 1, 2000 000 ml @ 125 mls/hr IV . Q8H MAGDY Rx#:[id number] Oral 480 1270 540 Other: # Voids 2 1 2 - Exam On physical examination, patient appears comfortable in no apparent distress. HEAD: Normocephalic, atraumatic. EYES: No scleral icterus. No conjunctival injection. MOUTH: No lesions, tongue midline. NECK: Trachea midline, no gross abnormalities. CHEST: Clear to auscultation with no wheezing or rhonchi appreciated. HEART: Regular rate and rhythm. ABDOMEN: Soft, obese. Bowel sounds are positive. No organomegaly. No guarding or rigidity. EXTREMITIES: No pedal edema. SKIN: No rashes, no jaundice. NEUROLOGIC: Alert and oriented x3. No focal deficits. - Labs CBC & Chem 7: 02/04/18 07:24 02/04/18 07:24 Labs: Abnormal Lab Results - Last 24 Hours (Table) 02/04/18 02/04/18 Range/Units 07:24 07:24 WBC 2.9 L (3.8-10.6) k/uL RBC 3.36 L (4.30-5.90) m/uL Hgb 11.7 L (13.0-17.5) gm/dL Hct 34.7 L (39.0-53.0) % MCV 103.4 H (80.0-100.0) fL RDW 15.9 H (11.5-15.5) % Lymphocytes # 0.5 L (1.0-4.8) k/uL BUN 4 L (9-20) mg/dL Total Protein 5.6 L (6.3-8.2) g/dL Albumin 3.0 L (3.5-5.0) g/dL Lipase 889 H (23-300) U/L Microbiology - Last 24 Hours (Table) 01/31/18 17:05 Blood Culture - Preliminary Blood No Growth after 96 hours Assessment and Plan (1) Acute pancreatitis Narrative/Plan: 67-year-old gentleman with a history of pancreatic ampullary carcinoma presently on chemotherapy, pulmonary embolism maintained on anticoagulation, and recent hospitalization in November for duodenal obstruction secondary to adhesions who is status post duodenal stent placement in November 2017 at [facility]. He presented with acute epigastric pain, nausea and vomiting with elevated pancreatic enzymes consistent with acute pancreatitis. The patient's clinical presentation appears to be consistent with pancreatitis and not recurrence of duodenal obstruction. Computed tomography scan of the abdomen and pelvis reported no evidence of bowel obstruction, liver enzymes have been within normal limits and pancreatic enzymes have been trending down, with a slight increase today. 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
[2018-02-05] MEDS: LEVOTHYROXINE 100 MCG TAB PO SCH (05:28)
[2018-02-05] MEDS: MEROPENEM 2 GM in SODIUM CHLORIDE 0.9% 100 ML IVPB SCH ×3 (05:28→20:35)
[2018-02-05] MEDS: PANTOPRAZOLE 40 MG TABLET PO SCH ×2 (07:09→17:23)
[2018-02-05 08:11] LABS: Basophils % (A) 1 %; Eosinophils # (A) 0.3 k/uL (0-0.7); Eosinophils % (A) 7 %; HCT 36.3 % (39.0-53.0); Lymphocytes # (A) 0.6 k/uL (1.0-4.8); Lymphocytes % (A) 16 %; MCH 34.5 pg (25.0-35.0); MCV 104.6 fL (80.0-100.0); Macrocytosis Moderate; Mean Platelet Volume 6.5; Monocytes # (A) 0.4 k/uL (0-1.0); Monocytes % (A) 10 %; Neutrophils # (A) 2.5 k/uL (1.3-7.7); Neutrophils % (A) 64 %; Platelet Count 340 k/uL (150-450); RBC 3.47 m/uL (4.30-5.90); RDW 15.7 % (11.5-15.5)
[2018-02-05 08:19] LABS: ALT 31 U/L (21-72); AST 21 U/L (17-59); Albumin 3.1 g/dL (3.5-5.0); Alkaline Phosphatase 98 U/L (38-126); Anion Gap 6 mmol/L; Blood Urea Nitrogen 6 mg/dL (9-20); Carbon Dioxide 26 mmol/L (22-30); Chloride 106 mmol/L (98-107); Glucose 84 mg/dL (74-99); Potassium 4.1 mmol/L (3.5-5.1); Sodium 138 mmol/L (137-145); Total Bilirubin 0.4 mg/dL (0.2-1.3); Total Protein 5.7 g/dL (6.3-8.2)
[2018-02-05 08:27] LABS: Amylase 333 U/L (30-110)
[2018-02-05 08:28] LABS: Lipase 3377 U/L (23-300)
[2018-02-05] MEDS: APIXABAN 5 MG TAB PO SCH ×2 (08:42→20:18)
[2018-02-05] MEDS: NYSTATIN 100,000 UNIT/ML SUSP 500,000 UNIT/5 ML CUP PO SCH ×4 (08:42→20:19)
[2018-02-05] MEDS: FLUTICASONE 50MCG/SPRAY NASAL 16GM EA NOSTRIL SCH (08:43)
[2018-02-05] MEDS: URSODIOL 300 MG CAP PO SCH ×2 (08:43→20:18)
[2018-02-05] MEDS: HYDROmorphone 1 MG/ML 1 ML SYRINGE IVP PRN ×3 (10:17→18:04)
--- NOTE | 2018-02-05 17:10 | P.PN ---
Subjective Progress Note Date: 02/05/18 This is a 67-year-old male patient well known to ID service as he has had previous bouts of E. coli sepsis related to obstruction of his biliary track. 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 There is evidence of bilateral pulmonary emboli without much symptom is being treated with Eliquis. In November patient had a duodenal stent placed at [facility] for all obstruction. Patient's relates that biopsy showed evidence of scar tissue not active cancer. Patient is currently undergoing chemotherapy with pump placement for 46 hours Wednesday through Wednesday every other week. The patient has been tolerating chemotherapy quite well. His relates that he ate wing dings on and Wednesday and developed abdominal bloating and vomiting. He is complaining of epigastric pain. He had appointments with oncology and Dr. Taveras on Wednesday which he kept but was subsequently sent into [facility] emergency center for evaluation because he had a temperature 100.8 and bilirubin had jumped from 0.2 to 1.1. Also noted the patient did have acute diarrhea 2 weeks ago which resolved. Patient denies having any diarrhea at this time. His last bowel movement prior to admission was Wednesday and he did have a bowel movement this morning, both have been formed with no blood or blackness. Patient was found to have temperature max of 100.8, white count was 2, hemoglobin 18.2, platelet count 172. Influenza testing for A and B were negative. Urinalysis was negative for infection. Amylase was 1509 and lipase 14,665. CAT scan of the abdomen and pelvis with contrast revealed intrahepatic bile ducts appear increased compared IN that suggested obstruction and malfunction. Pancreatic head mass increased slightly in size compared to old exam. Large mass in the liver increased slightly compared to old exam. There is increase in the lymph nodes as above. Chest x-ray showed elevated left diaphragm with mild pleural reaction or fluid at the lateral left lung base unchanged. Normal heart. Patient is currently on meropenem. Consults are in place for GI and oncology. 02/04/2018 patient is feeling better. Is having a bit of fullness to his abdomen after his evening meal other than this he is feeling relatively well. He is getting an occasional sensation almost like a chill that very brief. Temperature max is 99 with no significant fever rigors or new symptoms. Denies much abdominal pain appetite is slowly improving with his advanced diet. As noted the amylase is normalized but the lipase has increased somewhat today. 02/05/2018 is still having some abdominal fullness 1 bout of abdominal discomfort and was noticed that his lipase has increased further. Back to clear liquid diet Objective - Vital Signs Vital signs: Vital Signs Temp 97.7 F 02/05/18 15:15 Pulse 77 02/05/18 15:15 Resp 17 02/05/18 15:15 BP 118/84 02/05/18 15:15 Pulse Ox 97 02/05/18 15:15 Intake & Output 02/04/18 02/05/18 02/05/18 18:59 06:59 18:59 Intake Total 1270 2030 1480 Balance 1270 2030 1480 Weight 77 kg 77 kg Intake: Intake, IV Titration 1250 1000 Amount Sodium Chloride 0.9% 1, 1250 1000 000 ml @ 125 mls/hr IV . Q8H MAGDY Rx#:[id number] Oral 1270 780 480 Other: # Voids 1 2 - Exam Gen: This is a 67-year-old male. He is resting in bed appears to be comfortable. HEENT: Head is atraumatic, normocephalic. Pupils equal, round. Sclerae is anicteric. NECK: Supple. No JVD. No lymphadenopathy. No thyromegaly. LUNGS: Clear to auscultation. No wheezes or rhonchi. No intercostal retractions. HEART: Regular rate and rhythm. No murmur. Port to the left upper anterior chest with no surrounding erythema or tenderness. ABDOMEN: Soft. Bowel sounds are present. No masses. Epigastric tenderness. EXTREMITIES: No pedal edema. No calf tenderness. Dorsalis pedis +2 bilaterally. NEUROLOGICAL: Patient is awake, alert and oriented x3. - Labs CBC & Chem 7: 02/05/18 07:21 02/05/18 07:21 Labs: Abnormal Lab Results - Last 24 Hours (Table) 02/05/18 02/05/18 Range/Units 07:21 07:21 RBC 3.47 L (4.30-5.90) m/uL Hgb 12.0 L (13.0-17.5) gm/dL Hct 36.3 L (39.0-53.0) % MCV 104.6 H (80.0-100.0) fL RDW 15.7 H (11.5-15.5) % Lymphocytes # 0.6 L (1.0-4.8) k/uL BUN 6 L (9-20) mg/dL Total Protein 5.7 L (6.3-8.2) g/dL Albumin 3.1 L (3.5-5.0) g/dL Amylase 333 H* (30-110) U/L Lipase 3377 H (23-300) U/L Microbiology - Last 24 Hours (Table) 01/31/18 17:05 Blood Culture - Preliminary Blood No Growth after 96 hours Laboratory Results WBC 4.0 k/uL (3.8-10.6) 02/05/18 07:21 RBC 3.47 m/uL (4.30-5.90) L 02/05/18 07:21 Hgb 12.0 gm/dL (13.0-17.5) L 02/05/18 07:21 Hct 36.3 % (39.0-53.0) L 02/05/18 07:21 MCV 104.6 fL (80.0-100.0) H 02/05/18 07:21 MCH 34.5 pg (25.0-35.0) 02/05/18 07:21 MCHC 33.0 g/dL (31.0-37.0) 02/05/18 07:21 RDW 15.7 % (11.5-15.5) H 02/05/18 07:21 Plt Count 340 k/uL (150-450) 02/05/18 07:21 Neutrophils % 64 % 02/05/18 07:21 Lymphocytes % 16 % 02/05/18 07:21 Monocytes % 10 % 02/05/18 07:21 Eosinophils % 7 % 02/05/18 07:21 Basophils % 1 % 02/05/18 07:21 Neutrophils # 2.5 k/uL (1.3-7.7) 02/05/18 07:21 Lymphocytes # 0.6 k/uL (1.0-4.8) L 02/05/18 07:21 Monocytes # 0.4 k/uL (0-1.0) 02/05/18 07:21 Eosinophils # 0.3 k/uL (0-0.7) 02/05/18 07:21 Basophils # 0.0 k/uL (0-0.2) 02/05/18 07:21 Anisocytosis Slight 02/03/18 06:47 Macrocytosis Moderate 02/05/18 07:21 PT 10.8 sec (9.0-12.0) 01/31/18 17:05 INR 1.0 (<1.2) 01/31/18 17:05 APTT 25.8 sec (22.0-30.0) 01/31/18 17:05 Sodium 138 mmol/L (137-145) 02/05/18 07:21 Potassium 4.1 mmol/L (3.5-5.1) 02/05/18 07:21 Chloride 106 mmol/L (98-107) 02/05/18 07:21 Carbon Dioxide 26 mmol/L (22-30) 02/05/18 07:21 Anion Gap 6 mmol/L 02/05/18 07:21 BUN 6 mg/dL (9-20) L 02/05/18 07:21 Creatinine 0.67 mg/dL (0.66-1.25) 02/05/18 07:21 Est GFR (CKD-EPI)AfAm >90 (>60 ml/min/1.73 sqM) 02/05/18 07:21 Est GFR (CKD-EPI)NonAf >90 (>60 ml/min/1.73 sqM) 02/05/18 07:21 Glucose 84 mg/dL (74-99) 02/05/18 07:21 Plasma Lactic Acid Paddy 1.1 mmol/L (0.7-2.0) 01/31/18 17:05 Calcium 9.0 mg/dL (8.4-10.2) 02/05/18 07:21 Total Bilirubin 0.4 mg/dL (0.2-1.3) 02/05/18 07:21 AST 21 U/L (17-59) 02/05/18 07:21 ALT 31 U/L (21-72) 02/05/18 07:21 Alkaline Phosphatase 98 U/L (38-126) 02/05/18 07:21 Total Protein 5.7 g/dL (6.3-8.2) L 02/05/18 07:21 Albumin 3.1 g/dL (3.5-5.0) L 02/05/18 07:21 Amylase 333 U/L (30-110) H* 02/05/18 07:21 Lipase 3377 U/L (23-300) H 02/05/18 07:21 Urine Color Yellow 01/31/18 18:05 Urine Appearance Clear (Clear) 01/31/18 18:05 Urine pH 6.5 (5.0-8.0) 01/31/18 18:05 Ur Specific Whatley 1.021 (1.001-1.035) 01/31/18 18:05 Urine Protein 1+ (Negative) H 01/31/18 18:05 Urine Glucose (UA) Negative (Negative) 01/31/18 18:05 Urine Ketones Negative (Negative) 01/31/18 18:05 Urine Blood Negative (Negative) 01/31/18 18:05 Urine Nitrite Negative (Negative) 01/31/18 18:05 Urine Bilirubin Negative (Negative) 01/31/18 18:05 Urine Urobilinogen 3.0 mg/dL (<2.0) 01/31/18 18:05 Ur Leukocyte Esterase Negative (Negative) 01/31/18 18:05 Urine RBC 5 /hpf (0-5) 01/31/18 18:05 Urine WBC 1 /hpf (0-5) 01/31/18 18:05 Ur Squamous Epith Cells <1 /hpf (0-4) 01/31/18 18:05 Hyaline Casts 1 /lpf (0-2) 01/31/18 18:05 Urine Mucus Rare /hpf (None) H 01/31/18 18:05 C. difficile (EIA) Intrp Negative (Negative) 02/02/18 19:42 Influenza Type A RNA Not Detected (Not Detectd) 01/31/18 17:05 Influenza Type B (PCR) Not Detected (Not Detectd) 01/31/18 17:05 Microbiology 01/31/18 17:05 Blood Blood Culture - Preliminary No Growth after 96 hours 01/31/18 18:05 Urine,Voided Urine Culture - Final Assessment and Plan (1) Acute biliary pancreatitis Narrative/Plan: Pleasant 67-year-old gentleman is evaluated his is present. She is discontent with the reading of the computed tomography scan and further reading as been requested. At presentation the patient was feeling very poorly for more than a day without evidence of significant pancreatitis. Receiving prophylactic antibiotic therapy with meropenem given his very long-standing history and current chemotherapy and relative leukopenia. Cultures are in process are negative so far. The patient is responding to hydration and bowel rest well with a marked reduction of his amylase and lipase still is lipase over 5000. Closely monitor by gastroenterology ensure that the duodenal stent is not etiology of the current pancreatitis via an obstructive process from the stent. Cultures are being monitored patient is clinically improving since admission. Discontinued and had improvement of his status. Amylase is normalized, lipase is much improved but did increase some today. Continue with his advancing diet. He is having no nausea or emesis. Cultures are negative. He is on antimicrobial therapy at the moment given his complex history, but it appears that the pancreatic duct dysfunction is etiology of the current abnormality and he is having rapid improvement. With his discuss the findings with the oncologist and likely will have chemotherapy on Wednesday instead of Wednesday. 02/05/2018 lipase is still increased and diet has been reduced back to clear liquids. Fortunately total bilirubin still is 0.4 and is being monitored. If there is any further worsening he may need to be transferred to [place] for them to evaluate the duodenal stent to ensure that that it's not the cause of the pancreatitis. Is receiving antibiotic therapy with Merrem continues for now chemotherapy already rescheduled to at least Wednesday. Current Visit: Yes Status: Acute Priority: High Code(s): K85.1 - BILIARY ACUTE PANCREATITIS * DO NOT USE * SNOMED Code(s): 977427361
--- NOTE | 2018-02-05 19:02 | PN ---
PROGRESS NOTE DATE OF SERVICE: 02/05/2018 This 67-year-old gentleman admitted with abdominal pain with possible acute pancreatitis, also had multiple complex medical issues with multiple stents placed at [facility] also. The patient is complaining of some abdominal pain today and the patient's amylase, lipase is also increased today. No chest pain. No palpitations. No fever. EXAM: Alert and oriented x3. Pulse 85, blood pressure 121/81, respiration 16, temperature 98.1, pulse ox 98% on room air. HEENT: Conjunctivae normal. Oral mucosa moist. NECK: No jugular venous distention. CARDIOVASCULAR: S1, S2 muffled. RESPIRATORY: Breath sounds diminished at the bases. No rhonchi. No crackles. ABDOMEN: Soft, mild diffuse discomfort. No palpation. CENTRAL NERVOUS SYSTEM: No focal deficits. LEGS: No edema, no swelling. LABS: WBC 4, hemoglobin is 12. Sodium 138, potassium 4.1, and albumin is 3.1. Amylase 333 and lipase 377. ASSESSMENT: 1. Abdominal pain with possible acute pancreatitis. 2. Fever, vomiting, possible acute sepsis. 3. Leukopenia. 4. Dehydration with elevated hemoglobin, present on admission. 5. 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 6. History of cholangitis and sepsis previously. 7. 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 8. Hypothyroidism. 9. Multiple episodes of cholangitis. 10.History of pulmonary embolism. 11.History of testicular cancer. 12.History of metastasis of the liver. 13.FULL CODE. RECOMMENDATIONS AND DISCUSSION: Recommend to continue current medications, monitor and symptomatic treatment. Otherwise, at this time, I recommend repeat labs. Downgrade diet to full liquids and continue to monitor. Discussed with the patient and family. Prognosis guarded. Further recommendations to follow. MMODL / IJN: [id number] /
[2018-02-05] MEDS: guaiFENesin 600 MG TABLET.ER PO SCH (20:18)
[2018-02-06] MEDS: SODIUM CHLORIDE 0.9% 1,000 ML IV SCH ×3 (01:01→21:26)
[2018-02-06] MEDS: ACETAMINOPHEN TAB 500 MG TAB PO SCH ×3 (01:01→16:46)
[2018-02-06] MEDS: MEROPENEM 2 GM in SODIUM CHLORIDE 0.9% 100 ML IVPB SCH ×3 (06:01→21:26)
[2018-02-06] MEDS: LEVOTHYROXINE 100 MCG TAB PO SCH (06:01)
[2018-02-06] MEDS: FLUTICASONE 50MCG/SPRAY NASAL 16GM EA NOSTRIL SCH (08:30)
[2018-02-06] MEDS: PANTOPRAZOLE 40 MG TABLET PO SCH ×2 (08:31→16:52)
[2018-02-06] MEDS: guaiFENesin 600 MG TABLET.ER PO SCH (08:31)
[2018-02-06] MEDS: APIXABAN 5 MG TAB PO SCH ×2 (08:31→21:26)
[2018-02-06] MEDS: URSODIOL 300 MG CAP PO SCH ×2 (08:32→21:26)
[2018-02-06] MEDS: NYSTATIN 100,000 UNIT/ML SUSP 500,000 UNIT/5 ML CUP PO SCH ×4 (08:32→21:26)
[2018-02-06 08:49] LABS: HCT 35.9 % (39.0-53.0); HGB 12.1 gm/dL (13.0-17.5); MCH 35.3 pg (25.0-35.0); MCHC 33.7 g/dL (31.0-37.0); MCV 104.8 fL (80.0-100.0); Macrocytosis Moderate; Mean Platelet Volume 6.4; Platelet Count 321 k/uL (150-450); RBC 3.42 m/uL (4.30-5.90); RDW 15.9 % (11.5-15.5); WBC 3.1 k/uL (3.8-10.6)
[2018-02-06 08:57] LABS: ALT 27 U/L (21-72); AST 22 U/L (17-59); Albumin 2.9 g/dL (3.5-5.0); Alkaline Phosphatase 100 U/L (38-126); Amylase 154 U/L (30-110); Anion Gap 7 mmol/L; Blood Urea Nitrogen 5 mg/dL (9-20); Calcium 8.6 mg/dL (8.4-10.2); Carbon Dioxide 24 mmol/L (22-30); Chloride 106 mmol/L (98-107); Glucose 117 mg/dL (74-99); Lipase 1146 U/L (23-300); Potassium 3.8 mmol/L (3.5-5.1); Sodium 137 mmol/L (137-145); Total Bilirubin 0.5 mg/dL (0.2-1.3); Total Protein 5.5 g/dL (6.3-8.2)
[2018-02-06 13:16] LABS: Band Neutrophils % 1 %; Eosinophils # (M) 0.16 k/uL (0-0.7); Lymphocytes # (M) 0.53 k/uL (1.0-4.8); Monocytes # (M) 0.56 k/uL (0-1.0); Neutrophils % (M) 59 %; Nucleated Red Blood Cells 0 /100 WBC (0-0); Poikilocytosis (M) Present; Total Cells Counted 100
[2018-02-06] MEDS: HYDROmorphone 1 MG/ML 1 ML SYRINGE IVP PRN (18:32)
--- NOTE | 2018-02-06 20:51 | PN ---
PROGRESS NOTE DATE OF SERVICE: 02/06/2018 This 67-year-old gentleman admitted with abdominal pain with possible pancreatitis being closely monitored. The patient is abdominal pain free but amylase and lipase is still elevated. Slightly lower compared to yesterday. No chest pain. No palpitations. No fever. EXAM: Alert and oriented times three. Pulse 75, blood pressure 120/84, respirations 16, temperature 98.2, pulse ox 97% on room air. HEENT: Conjunctivae normal. Neck is no jugular venous distention. Cardiovascular: S1, S2. No S3, no S4. Respiratory: Breath sounds diminished in the bases. No rhonchi. No crackles. Abdomen is soft, nontender. No mass palpable. Legs are no edema. No swelling. Central nervous system: No focal deficits. LABS: WBC 3.9, hemoglobin 12.1. Otherwise, total protein is 5.5 and amylase is 154, lipase 1146. ASSESSMENT: 1. Abdominal pain with possible acute pancreatitis. 2. Fever, vomiting possible acute sepsis, present on admission. 3. Leukopenia. 4. Dehydration with elevated hemoglobin, present on admission. 5. Biliary ductal cancer status post multiple stents on chemotherapy. 6. History of cholangitis and sepsis previously. 7. History of duodenal stenosis, stent placed at [facility] previously. 8. Hypothyroidism. 9. Multiple episodes of cholangitis. 10.History of pulmonary embolus. 11.History of testicular cancer. 12.History of metastasis of the liver. 13.FULL CODE. RECOMMENDATIONS AND DISCUSSION: Continue the current medications, continue with monitoring. Symptomatic treatment. Otherwise, at this time, I recommend continue with current medical management. Repeat labs. Continue with full liquids. Guarded prognosis because of multiple complex medical issues. Further recommendations to follow. MMODL / IJN: [id number] /
[2018-02-07] MEDS: ACETAMINOPHEN TAB 500 MG TAB PO SCH ×3 (01:50→15:29)
[2018-02-07] MEDS: SODIUM CHLORIDE 0.9% 1,000 ML IV SCH ×2 (01:50→11:56)
[2018-02-07] MEDS: MEROPENEM 2 GM in SODIUM CHLORIDE 0.9% 100 ML IVPB SCH ×2 (05:18→12:01)
[2018-02-07] MEDS: LEVOTHYROXINE 100 MCG TAB PO SCH (05:18)
[2018-02-07] MEDS: APIXABAN 5 MG TAB PO SCH (08:11)
[2018-02-07] MEDS: FLUTICASONE 50MCG/SPRAY NASAL 16GM EA NOSTRIL SCH (08:11)
[2018-02-07] MEDS: NYSTATIN 100,000 UNIT/ML SUSP 500,000 UNIT/5 ML CUP PO SCH ×2 (08:12→12:01)
[2018-02-07] MEDS: guaiFENesin 600 MG TABLET.ER PO SCH (08:12)
[2018-02-07] MEDS: URSODIOL 300 MG CAP PO SCH (08:12)
[2018-02-07] MEDS: PANTOPRAZOLE 40 MG TABLET PO SCH (08:12)
[2018-02-07 08:20] VITALS: RESP 16
[2018-02-07 09:35] LABS: Basophils % (A) 1 %; Eosinophils # (A) 0.2 k/uL (0-0.7); Eosinophils % (A) 7 %; HCT 36.2 % (39.0-53.0); HGB 12.1 gm/dL (13.0-17.5); Lymphocytes # (A) 0.4 k/uL (1.0-4.8); Lymphocytes % (A) 14 %; MCH 35.3 pg (25.0-35.0); MCHC 33.6 g/dL (31.0-37.0); MCV 105.1 fL (80.0-100.0); Macrocytosis Moderate; Mean Platelet Volume 6.7; Monocytes # (A) 0.3 k/uL (0-1.0); Monocytes % (A) 10 %; Neutrophils # (A) 1.9 k/uL (1.3-7.7); Neutrophils % (A) 65 %; Platelet Count 306 k/uL (150-450); RBC 3.44 m/uL (4.30-5.90); RDW 15.6 % (11.5-15.5)
[2018-02-07 09:49] LABS: ALT 30 U/L (21-72); AST 26 U/L (17-59); Alkaline Phosphatase 99 U/L (38-126); Anion Gap 6 mmol/L; Blood Urea Nitrogen 5 mg/dL (9-20); Calcium 8.5 mg/dL (8.4-10.2); Carbon Dioxide 22 mmol/L (22-30); Chloride 108 mmol/L (98-107); Glucose 124 mg/dL (74-99); Potassium 3.7 mmol/L (3.5-5.1); Sodium 136 mmol/L (137-145); Total Bilirubin 0.5 mg/dL (0.2-1.3); Total Protein 5.4 g/dL (6.3-8.2)
[2018-02-07 10:54] LABS: Amylase 152 U/L (30-110); Lipase 1107 U/L (23-300)
[2018-02-07 12:00] VITALS: BMI 27.3
[2018-02-07 15:20] VITALS: BP 136/83; PULSE 78; TEMP 98.9
[2018-02-07] MEDS: HYDROmorphone 1 MG/ML 1 ML SYRINGE IVP PRN (16:15)
--- NOTE | 2018-02-08 00:16 | DS ---
DISCHARGE SUMMARY DATE OF SERVICE: 02/07/2018 FINAL DIAGNOSES: 1. Abdominal pain with possible acute pancreatitis. 2. Fever, vomiting with possible acute sepsis, improved, negative cultures. 3. Leukopenia. 4. Dehydration with elevated hemoglobin, present on admission. 5. Biliary duct cancer status post multiple stents and on chemotherapy. 6. History of and sepsis previously. 7. History of aortic stenosis status post stent placement at [facility] previously. 8. Hypothyroidism. 9. Multiple episodes of cholangitis. 10.History of pulmonary embolus. 11.History of testicular cancer. 12.History of metastasis to the liver. 13.FULL CODE. DISCHARGE DISPOSITION: The patient being discharged in stable condition with guarded prognosis. HISTORY OF PRESENT ILLNESS: This 67-year-old gentleman with a past medical history of multiple medical problems was admitted with features of abdominal pain, acute pancreatitis, treated symptomatically amylase and lipase was monitored closely. Gastroenterology saw the patient. Currently today amylase is 152, lipase 1107. On admission they were 1509 and 14,665. On exam, vital signs are stable. Cardiovascular S1, S2. Abdomen soft. Nervous System: No focal deficits. DISCHARGE ADVICE AND MEDICATIONS: 1. Diet is full liquids. 2. Activity limited until followup. 3. Follow up with Dr. Styles. 4. Follow up with Gastroenterology as advised. 5. Follow up labs with Dr. Dominguez. 6. Chemotherapy per Dr. Dominguez's office. MEDICATIONS ARE: 1. Tylenol 500-1000 mg q.6h p.r.n. 2. Eliquis 5 mg p.o. b.i.d. 3. Fluticasone 2 sprays daily. 4. Mucinex 600 mg. 5. Levothyroxine 100 mcg p.o. daily. 6. Nystatin 50,000 daily. 7. Compazine 10 mg q.6h p.r.n. 8. Isordil 300 mg p.o. b.i.d. 9. Protonix 40 mg p.o. b.i.d. Once again, the patient is being discharged in stable condition with guarded prognosis. MMODL / IJN: [id number] /
== END 2018-02-07 16:42 | disposition home or self-care (01) | DRG 871 ==
LOC: EC 15:30 → 3NMEDONC 18:58 → 4SSUR 20:16
PROVIDERS: ADMIT Hospitalist; ATTEND Hospitalist
DX: A41.9 Sepsis, unspecified organism (principal); I26.99 Other pulmonary embolism without acute cor pulmonale; K85.10 Biliary acute pancreatitis without necrosis or infection; C24.1 Malignant neoplasm of ampulla of Vater; C25.0 Malignant neoplasm of head of pancreas; C78.7 Secondary malignant neoplasm of liver and intrahepatic bile duct; R18.8 Other ascites; D72.819 Decreased white blood cell count, unspecified; E03.9 Hypothyroidism, unspecified; E86.0 Dehydration; G62.9 Polyneuropathy, unspecified; I35.0 Nonrheumatic aortic (valve) stenosis; K21.9 Gastro-esophageal reflux disease without esophagitis; Z79.01 Long term (current) use of anticoagulants; Z79.890 Hormone replacement therapy; Z79.899 Other long term (current) drug therapy; Z80.3 Family history of malignant neoplasm of breast; Z80.52 Family history of malignant neoplasm of bladder; Z85.47 Personal history of malignant neoplasm of testis; J98.6 Disorders of diaphragm; H26.9 Unspecified cataract; Z80.0 Family history of malignant neoplasm of digestive organs; Z96.89 Presence of other specified functional implants
CPT/HCPCS: 36415; 71045; 74177; 80053; 81001; 82150; 83605; 83690; 85025; 85610; 85730; 87040; 87086; 87324; 87502; 93005; 99285

== ENCOUNTER → 2018-02-14 | Outpatient (CLI) | payer OTHER, MEDICARE, BC ==
[2018-02-14 07:42] LABS: Basophils # (A) 0.1 k/uL (0-0.2); Basophils % (A) 2 %; Eosinophils # (A) 0.2 k/uL (0-0.7); Eosinophils % (A) 8 %; HCT 34.2 % (39.0-53.0); HGB 11.4 gm/dL (13.0-17.5); Lymphocytes # (A) 0.5 k/uL (1.0-4.8); Lymphocytes % (A) 18 %; MCH 33.7 pg (25.0-35.0); MCHC 33.3 g/dL (31.0-37.0); MCV 101.4 fL (80.0-100.0); Macrocytosis Slight; Mean Platelet Volume 6.7; Monocytes # (A) 0.1 k/uL (0-1.0); Monocytes % (A) 3 %; Neutrophils # (A) 1.9 k/uL (1.3-7.7); Neutrophils % (A) 66 %; Platelet Count 360 k/uL (150-450); RBC 3.37 m/uL (4.30-5.90); RDW 15.1 % (11.5-15.5); WBC 2.8 k/uL (3.8-10.6)
[2018-02-14 07:48] LABS: ALT 17 U/L (21-72); AST 28 U/L (17-59); Albumin 3.3 g/dL (3.5-5.0); Albumin/Globulin Ratio 1.3; Alkaline Phosphatase 92 U/L (38-126); Anion Gap 9 mmol/L; Blood Urea Nitrogen 12 mg/dL (9-20); Calcium 9.5 mg/dL (8.4-10.2); Carbon Dioxide 20 mmol/L (22-30); Chloride 107 mmol/L (98-107); Globulin 2.5 g/dL; Glucose 102 mg/dL (74-99); Potassium 4.5 mmol/L (3.5-5.1); Sodium 136 mmol/L (137-145); Total Bilirubin 0.6 mg/dL (0.2-1.3); Total Protein 5.8 g/dL (6.3-8.2)
[2018-02-14 08:17] LABS: Lipase 2929 U/L (23-300)
[2018-02-14 08:28] LABS: Amylase 331 U/L (30-110)
== END | disposition home or self-care (01) ==
LOC: LABWHC1 07:02
PROVIDERS: ATTEND Family Medicine
DX: K85.90 Acute pancreatitis without necrosis or infection, unspecified (principal)
CPT/HCPCS: 36415; 80053; 82150; 83690; 85025

== ENCOUNTER → 2018-03-04 | Outpatient (CLI) | payer OTHER, MEDICARE, BC ==
--- NOTE | 2018-03-04 16:28 | CT ---
EXAMINATION TYPE: CT ChestAbdPelvis w con DATE OF EXAM: 03/04/2018 COMPARISON: 01/31/2018 HISTORY: Hx pancreatic ca. Observe for mets CT DLP: 1022.90 mGycm Automated exposure control for dose reduction was used. CONTRAST: CT scan of the chest, abdomen and pelvis is performed with Oral Contrast and with IV Contrast, patien t injected with 100 mL of Isovue 300. FINDINGS: LUNGS: There is an elevated left hemidiaphragm with subsegmental consolidation in the left lung base most typical of atelectasis. No sizable pulmonary nodules. Heart size is stable. Aorta of normal mónica dima. No pericardial effusion. No pleural effusion. MEDIASTINUM: There are no greater than 1 cm hilar or mediastinal lymph nodes. No pericardial effusi on is seen. Mediport catheter noted. OTHER: No additional significant abnormality is seen. LIVER/GB: There is persistent intrahepatic bladder ductal dilation and a large mass involving the rig ht lobe of the liver measuring 2.2 x 5.4 cm. This is stable relative to the previous exam. There is a biliary stent with the stent extending into the small bowel. The degree of intrahepatic delayed duct al dilation is stable. Fullness to the pancreatic head and suspected pancreatic mass are also stable in size relative the previous exam. Measures 5.1 cm in greatest dimension. PANCREAS: 5.1 cm focal prominence of the pancreatic head is stable and there is mild pancreatic ducta l dilation. SPLEEN: Accessory spleen noted. ADRENALS: On the left adrenal gland not well seen likely due to metallic artifact. Right adrenal glan d has a normal appearance. KIDNEYS: No significant abnormality is seen. BOWEL: A biliary stent is noted within the common bile duct and there is a stent extending from the duodenum into the proximal jejunum. Numerous clips are seen in the retroperitoneum which results in a limited exam of the region secondary to severe artifact. LYMPH NODES: Within the gastrohepatic ligament there are 2 lymph nodes which are stable in size with the largest measuring a short axis of 1.4 cm compatible with adenopathy. OSSEOUS STRUCTURES: Hypertrophic and degenerative changes of the spine noted. There is a spondylolysi s of L5. OTHER: No free fluid. Aorta of normal caliber. Portions of the aorta is obscured by metallic artifact from clips. IMPRESSION: 1. Large hepatic mass measuring approximately 7.2 cm in greatest dimension is stable from the prior e xam. 2. Biliary stent and small bowel stent are stable compared to the prior exam with persistent fullness to the pancreatic head suspicious for neoplasm measuring approximately 5.1 cm and unchanged from the prior exam. 3. Lymphadenopathy in the gastrohepatic ligament measuring short axis of 1.4 cm is stable from the pr ior exam. 4. Biliary dilation persists but is similar to the prior exam
== END | disposition home or self-care (01) ==
LOC: RADPROMAIN 13:24
PROVIDERS: ATTEND Internal Medicine Hematology & Oncology
DX: C24.9 Malignant neoplasm of biliary tract, unspecified (principal); R16.0 Hepatomegaly, not elsewhere classified; R59.0 Localized enlarged lymph nodes
CPT/HCPCS: 71260; 74177; J1642; Q9967

== ENCOUNTER → 2018-04-28 | Outpatient (CLI) | payer OTHER, MEDICARE, BC ==
[2018-04-28 08:13] LABS: Blood Urea Nitrogen 14 mg/dL (9-20)
--- NOTE | 2018-04-28 10:39 | CT ---
EXAMINATION TYPE: CT ChestAbdPelvis w con DATE OF EXAM: 04/28/2018 COMPARISON: 03/04/2018, 01/31/2018, 01/03/2018 HISTORY: 67-year-old male Carcinoma of biliary duct TECHNIQUE: Contiguous axial scanning of the chest, abdomen, and pelvis performed with IV Contrast, pa tient injected with 100 ml mL of Isovue 300. Delayed images through the kidneys were obtained. Graham l/sagittal reconstructions performed. CT DLP: 1409 mGycm Automated exposure control for dose reduction was used. FINDINGS: CHEST: Heart normal size without pericardial effusion. Similar asymmetric elevation of the left hemidiaphrag m. Aorta normal caliber with bovine configuration to the aortic arch. Left anterior chest wall injection port with catheter tip at the cavoatrial junction. No thoracic lymphadenopathy. Some stable retained metallic density at the posterior left costophrenic angle and strandy atelectasis or scarring at the peripheral left base. No consolidation or pleural e ffusion. ABDOMEN: The heterogeneously enhancing peripherally located inferior right liver lobe mass is overall stable c ardiomegaly measured at 7.7 x 5.5 cm versus 7.2 x 6.0 cm, previously. There are some differences in m easurement technique. Pneumobilia with biliary stent in place. Portal venous system remains patent. Gallbladder nondistended. Right adrenal gland, kidneys, spleen with anterior splenule show no gross abnormality. Surgical clips in the left retroperitoneum. The left adrenal gland is not seen. There is some limitation in visualization of the pancreatic body. Stable fullness of the pancreatic h ead region. There is dilatation of the main pancreatic duct level of the pancreatic head is unchanged and 1 cm. The metallic stent is present within the third portion of the duodenum. No dilated small bowel, free fluid, or free air. Gastrohepatic ligament lymph nodes measure 1.6 and 1.3 cm. This is unchanged from 03/04/2018. These me asure 1.3 and 1.1 cm on 01/31/2018. Some left-sided mesenteric lymph nodes measure 1.0 cm versus 8 mm on 01/31/2018. Multiple surgical clips along the retroperitoneum Moderate stool in the colon. No pericolonic inflammatory change. Pelvis: Bladder is urine distended. Multiple pelvic phleboliths. Mild pelvic ascites is new. No pelvic lymph adenopathy. Bones: Degenerative changes right SI joint. Degenerative disc disease throughout the spine. Left L5 pars def ect noted. No osseous destructive process seen. IMPRESSION: 1. REDEMONSTRATED HETEROGENEOUS MASS INFERIOR RIGHT LIVER LOBE, RELATIVELY STABLE ALLOWING FOR SOME D IFFERENCES IN MEASUREMENT TECHNIQUE, MEASURING AT 7.7 X 5.5 CM VERSUS 7.2 X 6.0 CM, PREVIOUSLY. 2. GASTROHEPATIC LIGAMENT LYMPH NODES MAY BE A FEW MILLIMETERS LARGER FROM 01/31/2018, MEASURED AT 1. 6 AND 1.3 CM (VERSUS 1.3 AND 1.1 CM, PREVIOUSLY). 3. SOME SCATTERED BORE LINE SIZE MESENTERIC LYMPH NODES ARE LARGELY STABLE. A COUPLE APPEAR MINIMALLY LARGER FROM 01/31/2018 MEASURING 10 MM VERSUS 8 MM AT THAT TIME. 4. STABLE FULLNESS OF THE PANCREATIC HEAD REGION. BILIARY STENT WITH ASSOCIATED PNEUMOBILIA AND REDEM ONSTRATED METALLIC DUODENAL STENT. 5. MILD PELVIC ASCITES IS NEW.
== END | disposition home or self-care (01) ==
LOC: RADPROMAIN 07:41
PROVIDERS: ATTEND Internal Medicine Hematology & Oncology
DX: C24.9 Malignant neoplasm of biliary tract, unspecified (principal); R18.8 Other ascites; Z96.89 Presence of other specified functional implants; R16.0 Hepatomegaly, not elsewhere classified
CPT/HCPCS: 82565; 84520; 71260; 74177; J1642; Q9967

== ENCOUNTER 2018-05-08 17:45 | Inpatient (IN) | payer OTHER, MEDICARE, BC ==
[2018-05-08] MEDS ORDERED: IBUPROFEN 600 MG TAB PO STA (18:12)
[2018-05-08] MEDS ORDERED: IPRATROPIUM-ALBUTEROL 3 ML NEB INHALATION STA (18:13)
[2018-05-08] MEDS: ACETAMINOPHEN TAB 500 MG TAB PO STA ×2 (18:35→18:36)
--- NOTE | 2018-05-08 18:38 | ED ---
Fever HPI - General Chief Complaint: Fever Stated Complaint: Fever Time Seen by Provider: 05/08/18 17:54 Source: patient, RN notes reviewed, old records reviewed Mode of arrival: ambulatory Limitations: no limitations - History of Present Illness Initial Comments: 67-year-old male presents today with complaints of fever. He reports he underwent chemotherapy for 48 hours on Wednesday. Patient reports that his son was sinus with flu earlier this week. Patient is been having fever and chills and bodyaches. Patient has not had any recent Motrin or Tylenol. They're concerned because now had a productive cough with yellow sputum. They called patient's oncologist and recommended for Patient to be seen. Patient reports that he's had no abdominal pain or vomiting episodes. - Related Data Home Medications Medication Instructions Recorded Confirmed Fluticasone Nasal [place] [Flonase 2 spray EA NOSTRIL DAILY 05/23/16 05/08/18 Nasal [place]] Ursodiol 300 mg PO BID 03/16/17 05/08/18 Levothyroxine Sodium [Synthroid] 100 mcg PO DAILY 06/01/17 05/08/18 Prochlorperazine [Compazine] 10 mg PO Q6H PRN 06/18/17 05/08/18 Acetaminophen [Tylenol Extra 500 - 1,000 mg PO Q6H PRN 11/17/17 05/08/18 Strength] Apixaban [Eliquis] 5 mg PO BID 11/17/17 05/08/18 Nystatin 100,000 Unit/ml Susp 500,000 unit PO QID 01/16/18 05/08/18 [Mycostatin Oral Susp] guaiFENesin [Mucinex] 600 mg PO DAILY 01/16/18 05/08/18 D-Methorphan/PE/Acetaminophen 1 tab PO BID 05/08/18 05/08/18 [Theraflu Expressmax Day Caplet] Docusate [Colace] 100 mg PO BID 05/08/18 05/08/18 Megestrol Acetate [Megace] 800 mg PO DAILY 05/08/18 05/08/18 Omeprazole 20 mg PO DAILY 05/08/18 05/08/18 Polyethylene Glycol 3350 [Miralax] 17 gm PO DAILY PRN 05/08/18 05/08/18 Previous Rx's Medication Instructions Recorded Pantoprazole Sodium [Protonix] 40 mg PO BID #60 tablet. 02/07/18 Allergies Allergy/AdvReac Type Severity Reaction Status Date / Time morphine AdvReac BRADYCARDIC Verified 05/08/18 18:40 Review of Systems ROS Statement: Those systems with pertinent positive or pertinent negative responses have been documented in the HPI. ROS Other: All systems not noted in ROS Statement are negative. 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 will be due next wednesday METS TO LIVER. HX Sepsis. Hypothyroid. upper/lower bridges. PE X2 11/01/17.cataracts History of Any Multi-Drug Resistant Organisms: None Reported Past Surgical History: Hernia Repair, Tonsillectomy Additional Past Surgical History / Comment(s): 1979 Lt Testicle, lymph nodes removed along spine. Right Inguinal Hernia Repair x3 with mesh. has a power port. Hemorrhoidectomy (2011), Colonoscopy (Jan 2015), Titanium Stent in [place] (02/2015 @ [place]), Restent in 01/2016 ([place])and in 2017 . ERCP'S. Power Port. 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 Past Psychological History: No Psychological Hx Reported Smoking Status: Never smoker Past Alcohol Use History: None Reported Past Drug Use History: None Reported - Past Family History Mother Family Medical History: Cancer Additional Family Medical History / Comment(s): Cancer x 3, lived until age 89. Sister(s) Family Medical History: Cancer Additional Family Medical History / Comment(s): Breast cancer. Brother(s) Family Medical History: Cancer Father Family Medical History: Cancer Additional Family Medical History / Comment(s): Colon/bladder cancer x 3, at 94 General Exam - General Exam Comments Initial Comments: Is a 67-year-old male. Alert and oriented. No significant distress. Limitations: no limitations General appearance: alert, in no apparent distress Head exam: Present: atraumatic, normocephalic, normal inspection Eye exam: Present: normal appearance, PERRL, EOMI. Absent: scleral icterus, c onjunctival injection, periorbital swelling ENT exam: Present: normal exam, mucous membranes moist Neck exam: Present: normal inspection. Absent: tenderness, meningismus, lymphadenopathy Respiratory exam: Present: normal lung sounds bilaterally. Absent: respiratory distress, wheezes, rales, rhonchi, stridor Cardiovascular Exam: Present: regular rate, normal rhythm, normal heart sounds. Absent: systolic murmur, diastolic murmur, rubs, gallop, clicks GI/Abdominal exam: Present: soft, normal bowel sounds. Absent: distended, tenderness, guarding, rebound, rigid Extremities exam: Present: normal inspection, full ROM, normal capillary refill. Absent: tenderness, pedal edema, joint swelling, calf tenderness Back exam: Present: normal inspection Neurological exam: Present: alert, oriented X3, CN II-XII intact Psychiatric exam: Present: normal affect, normal mood Course Vital Signs 05/08/18 05/08/18 05/08/18 17:48 18:42 18:50 Temperature 102.7 F H Pulse Rate 126 H 72 70 Respiratory 20 16 16 Rate Blood Pressure 134/75 O2 Sat by Pulse 98 Oximetry 05/08/18 05/08/18 05/08/18 19:11 19:23 19:44 Temperature 102.3 F H 101.5 F H Pulse Rate 116 H Respiratory 19 19 Rate Blood Pressure 114/75 O2 Sat by Pulse 96 Oximetry Medical Decision Making - Medical Decision Making Patient is a 67-year-old male presented today with cough congestion and fever. He is currently undergoing chemotherapy for stage IV pancreatic cancer. He had chemotherapy on Wednesday. He's been feeling progressively worse since Wednesday. Patient is positive for influenza A. Lab work was obtained. He is leukopenic white blood cell count 2.6. He reports that this is pretty chronic after he has chemotherapy. He has not been on any medication such as last at this time. Patient's lactic acid was normal. Chest x-ray is negative for pneumonia. Patient will be started on fluids and Tamiflu. Patient will be admitted at this time with consults to oncology. - Lab Data Result diagrams: 05/08/18 19:00 05/08/18 19:00 Lab Results 05/08/18 05/08/18 05/08/18 Range/Units 19:00 19:00 19:00 WBC 2.6 L (3.8-10.6) k/uL RBC 3.49 L (4.30-5.90) m/uL Hgb 12.1 L (13.0-17.5) gm/dL Hct 37.0 L (39.0-53.0) % MCV 106.0 H (80.0-100.0) fL MCH 34.5 (25.0-35.0) pg MCHC 32.6 (31.0-37.0) g/dL RDW 17.2 H (11.5-15.5) % Plt Count 252 (150-450) k/uL Neutrophils % 76 % Lymphocytes % 16 % Monocytes % 5 % Eosinophils % 1 % Basophils % 0 % Neutrophils # 2.0 (1.3-7.7) k/uL Lymphocytes # 0.4 L (1.0-4.8) k/uL Monocytes # 0.1 (0-1.0) k/uL Eosinophils # 0.0 (0-0.7) k/uL Basophils # 0.0 (0-0.2) k/uL Anisocytosis Slight Macrocytosis Moderate PT (9.0-12.0) sec INR (<1.2) APTT (22.0-30.0) sec Sodium 132 L (137-145) mmol/L Potassium 4.4 (3.5-5.1) mmol/L Chloride 102 (98-107) mmol/L Carbon Dioxide 22 (22-30) mmol/L Anion Gap 8 mmol/L BUN 16 (9-20) mg/dL Creatinine 0.83 (0.66-1.25) mg/dL Est GFR (CKD-EPI)AfAm >90 (>60 ml/min/1.73 sqM) Est GFR (CKD-EPI)NonAf >90 (>60 ml/min/1.73 sqM) Glucose 113 H (74-99) mg/dL Plasma Lactic Acid Paddy (0.7-2.0) mmol/L Calcium 8.5 (8.4-10.2) mg/dL Total Bilirubin 0.4 (0.2-1.3) mg/dL AST 21 (17-59) U/L ALT 26 (21-72) U/L Alkaline Phosphatase 54 (38-126) U/L Troponin I (0.000-0.034) ng/mL Total Protein 5.1 L (6.3-8.2) g/dL Albumin 2.9 L (3.5-5.0) g/dL Influenza Type A RNA Detected H (Not Detectd) Influenza Type B (PCR) Not Detected (Not Detectd) 05/08/18 05/08/18 05/08/18 Range/Units 19:00 19:00 19:00 WBC (3.8-10.6) k/uL RBC (4.30-5.90) m/uL Hgb (13.0-17.5) gm/dL Hct (39.0-53.0) % MCV (80.0-100.0) fL MCH (25.0-35.0) pg MCHC (31.0-37.0) g/dL RDW (11.5-15.5) % Plt Count (150-450) k/uL Neutrophils % % Lymphocytes % % Monocytes % % Eosinophils % % Basophils % % Neutrophils # (1.3-7.7) k/uL Lymphocytes # (1.0-4.8) k/uL Monocytes # (0-1.0) k/uL Eosinophils # (0-0.7) k/uL Basophils # (0-0.2) k/uL Anisocytosis Macrocytosis PT 11.3 (9.0-12.0) sec INR 1.1 (<1.2) APTT 24.8 (22.0-30.0) sec Sodium (137-145) mmol/L Potassium (3.5-5.1) mmol/L Chloride (98-107) mmol/L Carbon Dioxide (22-30) mmol/L Anion Gap mmol/L BUN (9-20) mg/dL Creatinine (0.66-1.25) mg/dL Est GFR (CKD-EPI)AfAm (>60 ml/min/1.73 sqM) Est GFR (CKD-EPI)NonAf (>60 ml/min/1.73 sqM) Glucose (74-99) mg/dL Plasma Lactic Acid Paddy 1.8 (0.7-2.0) mmol/L Calcium (8.4-10.2) mg/dL Total Bilirubin (0.2-1.3) mg/dL AST (17-59) U/L ALT (21-72) U/L Alkaline Phosphatase (38-126) U/L Troponin I <0.012 (0.000-0.034) ng/mL Total Protein (6.3-8.2) g/dL Albumin (3.5-5.0) g/dL Influenza Type A RNA (Not Detectd) Influenza Type B (PCR) (Not Detectd) - Radiology Data Radiology results: report reviewed Chest x-ray shows chronic elevated left diaphragm with some atelectasis of the left lung base. No change. Heart failure seen. Disposition Clinical Impression: Leukopenia, Influenza A, History of pancreatic cancer, Fever Disposition: ADMITTED IP TO THIS HOSP Condition: Stable Is patient prescribed a controlled substance at d/c from ED?: No Referrals: Shelby Styles MD [Primary Care Provider] - 1-2 days Time of Disposition: 20:37
[2018-05-08] MEDS: SODIUM CHLORIDE 0.9% 500 ML 500 ML IV SCH ×5 (19:00→23:12)
[2018-05-08 19:31] LABS: ALT 26 U/L (21-72); AST 21 U/L (17-59); Albumin 2.9 g/dL (3.5-5.0); Alkaline Phosphatase 54 U/L (38-126); Anion Gap 8 mmol/L; Blood Urea Nitrogen 16 mg/dL (9-20); Calcium 8.5 mg/dL (8.4-10.2); Carbon Dioxide 22 mmol/L (22-30); Chloride 102 mmol/L (98-107); Glucose 113 mg/dL (74-99); Potassium 4.4 mmol/L (3.5-5.1); Sodium 132 mmol/L (137-145); Total Bilirubin 0.4 mg/dL (0.2-1.3); Total Protein 5.1 g/dL (6.3-8.2)
--- NOTE | 2018-05-08 19:33 | XR ---
EXAMINATION TYPE: XR chest 2V DATE OF EXAM: 05/08/2018 COMPARISON: 01/31/2018 HISTORY: Fever TECHNIQUE: Frontal and lateral views of the chest are obtained. FINDINGS: There is elevated left diaphragm. Heart size is normal. There is left-sided central venous catheter with the tip in the superior vena cava. There is no heart failure. Bony thorax is intact. IMPRESSION: Chronic elevated left diaphragm with some atelectasis at the left lung base. No change. No heart failure seen.
[2018-05-08 19:39] LABS: Anisocytosis Slight; Basophils % (A) 0 %; Eosinophils % (A) 1 %; HGB 12.1 gm/dL (13.0-17.5); INR 1.1 (<1.2); Lymphocytes # (A) 0.4 k/uL (1.0-4.8); Lymphocytes % (A) 16 %; MCH 34.5 pg (25.0-35.0); MCHC 32.6 g/dL (31.0-37.0); Mean Platelet Volume 6.4; Monocytes # (A) 0.1 k/uL (0-1.0); Monocytes % (A) 5 %; Neutrophils % (A) 76 %; Partial Thromboplastin Time 24.8 sec (22.0-30.0); Platelet Count 252 k/uL (150-450); Prothrombin Time 11.3 sec (9.0-12.0); RBC 3.49 m/uL (4.30-5.90); RDW 17.2 % (11.5-15.5); WBC 2.6 k/uL (3.8-10.6)
[2018-05-08 19:40] LABS: Macrocytosis Moderate
[2018-05-08] MEDS ORDERED: NALOXONE 0.4 MG/ML 1 ML VIAL IV PRN (20:37)
[2018-05-08] MEDS ORDERED: KETOROLAC 30 MG/ML 1 ML VIAL IVP PRN (20:37)
[2018-05-08] MEDS ORDERED: ACETAMINOPHEN TAB 325 MG TAB PO PRN (20:37)
[2018-05-08] MEDS ORDERED: IBUPROFEN 400 MG TAB PO PRN (20:37)
[2018-05-08] MEDS ORDERED: POLYETHYLENE GLYCOL 3350 17 GM POWD.PACK PO PRN (20:39)
[2018-05-08] MEDS ORDERED: PROCHLORPERAZINE 10 MG TAB PO PRN (20:39)
[2018-05-08] MEDS: SODIUM CHLORIDE 0.9% 1,000 ML IV SCH (20:46)
[2018-05-08] MEDS ORDERED: ACETAMINOPHEN PO SCH (21:00)
[2018-05-08] MEDS ORDERED: [UNRECOGNIZED DRUG - OTHER] PO SCH (21:00)
[2018-05-08] MEDS ORDERED: D METHORPHAN PO SCH (21:00)
[2018-05-08 21:28] VITALS: BMI 28.5
[2018-05-08] MEDS: PANTOPRAZOLE 40 MG TABLET PO SCH (22:02)
[2018-05-08] MEDS: URSODIOL 300 MG CAP PO SCH (22:04)
[2018-05-08] MEDS: DOCUSATE 100 MG CAP PO SCH (22:04)
[2018-05-08] MEDS: APIXABAN 5 MG TAB PO SCH (22:04)
[2018-05-08] MEDS: CLOTRIMAZOLE TROCHE 10 MG TROCHE PO SCH (22:04)
[2018-05-08 23:24] LABS: Appearance,Urine Clear (Clear); Bilirubin,Urine Negative (Negative); Blood,Urine Negative (Negative); Color,Urine Yellow; Glucose,Urine (UA) Negative (Negative); Ketones,Urine Negative (Negative); Leukocyte Esterase,Urine Negative (Negative); Nitrite,Urine Negative (Negative); PH, Urine 6.5 (5.0-8.0); Protein,Urine Negative (Negative); Specific Gravity,Urine 1.011 (1.001-1.035)
[2018-05-09] MEDS: CLOTRIMAZOLE TROCHE 10 MG TROCHE PO SCH ×4 (05:54→20:57)
[2018-05-09] MEDS: LEVOTHYROXINE 100 MCG TAB PO SCH (05:54)
[2018-05-09] MEDS ORDERED: NON-FORMULARY DRUG (Omeprazole [Omeprazole] 20 MG) PO SCH (09:00)
[2018-05-09] MEDS: PANTOPRAZOLE 40 MG TABLET PO SCH ×2 (09:33→18:06)
[2018-05-09] MEDS: DOCUSATE 100 MG CAP PO SCH ×2 (09:34→20:57)
[2018-05-09] MEDS: URSODIOL 300 MG CAP PO SCH ×2 (09:34→20:57)
[2018-05-09] MEDS: PANTOPRAZOLE 40 MG/10 ML VIAL IV SCH (09:34)
[2018-05-09] MEDS: guaiFENesin 600 MG TABLET.ER PO SCH (09:34)
[2018-05-09] MEDS: FLUTICASONE 50MCG/SPRAY NASAL 16GM EA NOSTRIL SCH (09:34)
[2018-05-09] MEDS: APIXABAN 5 MG TAB PO SCH ×2 (09:34→20:57)
[2018-05-09] MEDS: MEGESTROL 400 MG/10 ML CUP PO SCH (09:35)
[2018-05-09] MEDS: SODIUM CHLORIDE 0.9% 1,000 ML IV SCH ×2 (09:40→18:08)
[2018-05-09] MEDS ORDERED: SODIUM CHLORIDE 0.9% 1,000 ML IV SCH (19:45)
--- NOTE | 2018-05-09 23:50 | P.CONS ---
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 will be due next wednesday METS TO LIVER. HX Sepsis. Hypothyroid. upper/lower bridges. PE X2 11/01/17.cataracts History of Any Multi-Drug Resistant Organisms: None Reported Past Surgical History: Hernia Repair, Tonsillectomy Additional Past Surgical History / Comment(s): 1979 Lt Testicle, lymph nodes removed along spine. Right Inguinal Hernia Repair x3 with mesh. has a power port. Hemorrhoidectomy (2011), Colonoscopy (Jan 2015), [facility] ([facility]/2015 @ [place]), Restent in 01/2016 ([place])and in 2017 . ERCP'S. Power Port. duodenal stent for obstruction not malignant Past Anesthesia/Blood Transfusion Reactions: Previous Problems w/ Anesthesia Additional Past Anesthesia/Blood Transfusion Reaction / Comm: DIFFICULTY URINATING W/ HERNIA, HEMORRHOID SURGERIES. Past Psychological History: No Psychological Hx Reported Additional Psychological History / Comment(s): Pt resides with his spouse and son. There is a cat in the household. Pt is independent. Smoking Status: Never smoker Past Alcohol Use History: None Reported Past Drug Use History: None Reported Additional Drug Use History / Comment(s): . - Past Family History Mother Family Medical History: Cancer Additional Family Medical History / Comment(s): Cancer x 3, lived until age 89. Sister(s) Family Medical History: Cancer Additional Family Medical History / Comment(s): Breast cancer. Brother(s) Family Medical History: Cancer Father Family Medical History: Cancer Additional Family Medical History / Comment(s): Colon/bladder cancer x 3, at 94 Medications and Allergies Home Medications Medication Instructions Recorded Confirmed Type Fluticasone Nasal [place] [Flonase 2 spray EA NOSTRIL DAILY 05/23/16 05/08/18 History Nasal [place]] Ursodiol 300 mg PO BID 03/16/17 05/08/18 History Levothyroxine Sodium [Synthroid] 100 mcg PO DAILY 06/01/17 05/08/18 History Prochlorperazine [Compazine] 10 mg PO Q6H PRN 06/18/17 05/08/18 History Acetaminophen [Tylenol Extra 500 - 1,000 mg PO Q6H PRN 11/17/17 05/08/18 History Strength] Apixaban [Eliquis] 5 mg PO BID 11/17/17 05/08/18 History Nystatin 100,000 Unit/ml Susp 500,000 unit PO QID 01/16/18 05/08/18 History [Mycostatin Oral Susp] guaiFENesin [Mucinex] 600 mg PO DAILY 01/16/18 05/08/18 History Pantoprazole Sodium [Protonix] 40 mg PO BID #60 tablet. 02/07/18 05/08/18 Rx D-Methorphan/PE/Acetaminophen 1 tab PO BID 05/08/18 05/08/18 History [Theraflu Expressmax Day Caplet] Docusate [Colace] 100 mg PO BID 05/08/18 05/08/18 History Megestrol Acetate [Megace] 800 mg PO DAILY 05/08/18 05/08/18 History Omeprazole 20 mg PO DAILY 05/08/18 05/08/18 History Polyethylene Glycol 3350 [Miralax] 17 gm PO DAILY PRN 05/08/18 05/08/18 History Allergies Allergy/AdvReac Type Severity Reaction Status Date / Time morphine AdvReac BRADYCARDIC Verified 05/08/18 18:40 Physical Exam Vitals: Vital Signs Temp Pulse Pulse Resp BP BP Pulse Ox 05/09/18 07:21 98.5 F 55 L 14 121/79 95 05/08/18 23:00 98.5 F 78 18 111/70 97 05/08/18 21:27 99.9 F H 92 18 105/71 96 05/08/18 20:52 100.3 F H 100 19 106/77 96 05/08/18 19:44 101.5 F H 116 H 19 114/75 96 05/08/18 19:23 19 05/08/18 19:11 102.3 F H 05/08/18 18:50 70 16 05/08/18 18:42 72 16 05/08/18 17:48 102.7 F H 126 H 20 134/75 98 Intake and Output 05/08/18 05/09/18 05/09/18 22:59 06:59 14:59 Intake Total 480 600 Balance 480 600 Intake: Oral 480 600 Other: # Voids 1 Weight 80.286 kg Results CBC & Chem 7: 05/08/18 19:00 05/08/18 19:00 Labs: Abnormal Lab Results - Last 24 Hours (Table) 05/08/18 05/08/18 05/08/18 Range/Units 19:00 19:00 19:00 WBC 2.6 L (3.8-10.6) k/uL RBC 3.49 L (4.30-5.90) m/uL Hgb 12.1 L (13.0-17.5) gm/dL Hct 37.0 L (39.0-53.0) % MCV 106.0 H (80.0-100.0) fL RDW 17.2 H (11.5-15.5) % Lymphocytes # 0.4 L (1.0-4.8) k/uL Sodium 132 L (137-145) mmol/L Glucose 113 H (74-99) mg/dL Total Protein 5.1 L (6.3-8.2) g/dL Albumin 2.9 L (3.5-5.0) g/dL Influenza Type A RNA Detected H (Not Detectd) Microbiology - Last 24 Hours (Table) 05/08/18 22:00 Urine Culture - Preliminary Urine,Voided Assessment and Plan Plan: Assessment and Recs: 1. Pancreatic Cancer: - Primary Oncologist Dr. Dominguez 2. Influenza A: - COntinue Supportive care - Tamiflu Physician Attestation: I have completed the full history and physical and devloped the complete impression and plan, agree with above dictation, dictated as scribe
[2018-05-10] MEDS: CLOTRIMAZOLE TROCHE 10 MG TROCHE PO SCH (00:04)
--- NOTE | 2018-05-10 00:04 | P.HPIM ---
History of Present Illness H&P Date: 05/09/18 Chief Complaint: Fever Mr. Blankenship is a 67-year old male with a past medical history of pancreatic cancer stage IV metastatic disease to the liver , initially diagnosed with pancreatic cancer in February 2015 and initially had stent placement at [facility] and latter patient had sepsis in October 2015 and was treated at [facility]. Following that patient had multiple stents placement. He recently underwent chemotherapy on coming into the hospital with a chief complaint of fever. Patient states that his son was sick with the flu earlier this week and he was in contact with his son. Later on patient started to have fever chills and myalgias. For the last couple of days he started to have productive cough and yellow sputum. So he contacted his oncologist who recommended the patient to go to the ER. Patient denies having any Abdominal pain nausea vomiting or diarrhea. He denies denies having any chest pain or palpitations. He has mild difficulty in breathing. Patient denies having any orthopnea or PND. No lower extremity swelling. No recent travel. In the emergency department patient was tested positive for influenza A and admitted for further management. Review of Systems REVIEW OF SYSTEMS: PSYCH: Normal psychiatric exam NEURO:no weakness of his extremities VASCULAR: no edema HEMATOLOGIC: No history of easy bleeding and bruising . No recent infections . RESPIRATORY: cough with mild SOB. IMMUNE: Immunocompromised INTEGUMENT: no rashes OPHTHALMOLOGIC: No blurry vision and no eye discharge : No dysuria or hematuria CARDIAC: No chest pain , shortness of breath , paroxysmal nocturnal dyspnea MUSCULOSKELETAL : myalgias GI: No abdominal pain, Nausea or vomiting. No constipation or diarrhea. Past Medical History Past Medical History: Cancer, GERD/Reflux, Pulmonary Embolus (PE), Thyroid Disorder Additional Past Medical History / Comment(s): Testicular cancer 1979; Pancr eatic Cancer (ampulla of lay), STAGE 4 (February 2015),gets chemo 46 hours stright wednesday thru to wed. will be due next wednesday METS TO LIVER. HX Sepsis. Hypothyroid. upper/lower bridges. PE X2 11/01/17.cataracts History of Any Multi-Drug Resistant Organisms: None Reported Past Surgical History: Hernia Repair, Tonsillectomy Additional Past Surgical History / Comment(s): 1979 Lt Testicle, lymph nodes removed along spine. Right Inguinal Hernia Repair x3 with mesh. has a power port. Hemorrhoidectomy (2011), Colonoscopy (Jan 2015), Titanium Stent in Pan[place] (02/2015 @ [place]), Restent in 01/2016 ([place])and in 2017 . ERCP'S. Power Port. 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 Past Psychological History: No Psychological Hx Reported Additional Psychological History / Comment(s): Pt resides with his spouse and son. There is a cat in the household. Pt is independent. Smoking Status: Never smoker Past Alcohol Use History: None Reported Past Drug Use History: None Reported Additional Drug Use History / Comment(s): . - Past Family History Mother Family Medical History: Cancer Additional Family Medical History / Comment(s): Cancer x 3, lived until age 89. Sister(s) Family Medical History: Cancer Additional Family Medical History / Comment(s): Breast cancer. Brother(s) Family Medical History: Cancer Father Family Medical History: Cancer Additional Family Medical History / Comment(s): Colon/bladder cancer x 3, at 94 Medications and Allergies Home Medications Medication Instructions Recorded Confirmed Type Fluticasone Nasal [place] [Flonase 2 spray EA NOSTRIL DAILY 05/23/16 05/08/18 History Nasal [place]] Ursodiol 300 mg PO BID 03/16/17 05/08/18 History Levothyroxine Sodium [Synthroid] 100 mcg PO DAILY 06/01/17 05/08/18 History Prochlorperazine [Compazine] 10 mg PO Q6H PRN 06/18/17 05/08/18 History Acetaminophen [Tylenol Extra 500 - 1,000 mg PO Q6H PRN 11/17/17 05/08/18 History Strength] Apixaban [Eliquis] 5 mg PO BID 11/17/17 05/08/18 History Nystatin 100,000 Unit/ml Susp 500,000 unit PO QID 01/16/18 05/08/18 History [Mycostatin Oral Susp] guaiFENesin [Mucinex] 600 mg PO DAILY 01/16/18 05/08/18 History Pantoprazole Sodium [Protonix] 40 mg PO BID #60 tablet. 02/07/18 05/08/18 Rx D-Methorphan/PE/Acetaminophen 1 tab PO BID 05/08/18 05/08/18 History [Theraflu Expressmax Day Caplet] Docusate [Colace] 100 mg PO BID 05/08/18 05/08/18 History Megestrol Acetate [Megace] 800 mg PO DAILY 05/08/18 05/08/18 History Omeprazole 20 mg PO DAILY 05/08/18 05/08/18 History Polyethylene Glycol 3350 [Miralax] 17 gm PO DAILY PRN 05/08/18 05/08/18 History Allergies Allergy/AdvReac Type Severity Reaction Status Date / Time morphine AdvReac BRADYCARDIC Verified 05/08/18 18:40 Physical Exam Vitals: Vital Signs Temp Pulse Pulse Resp BP BP Pulse Ox 05/09/18 07:21 98.5 F 55 L 14 121/79 95 05/08/18 23:00 98.5 F 78 18 111/70 97 05/08/18 21:27 99.9 F H 92 18 105/71 96 05/08/18 20:52 100.3 F H 100 19 106/77 96 05/08/18 19:44 101.5 F H 116 H 19 114/75 96 05/08/18 19:23 19 05/08/18 19:11 102.3 F H 05/08/18 18:50 70 16 05/08/18 18:42 72 16 05/08/18 17:48 102.7 F H 126 H 20 134/75 98 Intake and Output 05/09/18 05/09/18 05/09/18 06:59 14:59 22:59 Intake Total 600 Balance 600 Intake: Oral 600 Other: # Voids 1 GEN. APPEARANCE: chronically ill appearing HEAD EXAM: atraumatic, normocephalic, normal inspection EYE EXAM: Mild pallor, no icterus ENT EXAM: normal exam, mucous membranes moist NECK EXAM: No masses felt. RESPIRATORY EXAM: Bilateral BS +ve. Mild wheeze in the right lower lobe. CARDIOVASCULAR EXAM: regular rate, normal rhythm, normal heart sounds. Absent: systolic murmur, diastolic murmur, rubs, gallop, clicks GI/ABDOMINAL EXAM: Soft, non - tender. Hyperactive BS. EXTREMITIES EXAM: Mild edema NEUROLOGICAL EXAM: alert, oriented X3, No focal deficits PSYCHIATRIC EXAM: normal affect, normal mood SKIN EXAM: warm, dry, intact, normal color. Absent: rash Results CBC & Chem 7: 05/08/18 19:00 05/08/18 19:00 Labs: Abnormal Lab Results - Last 24 Hours (Table) 05/08/18 05/08/18 05/08/18 Range/Units 19:00 19:00 19:00 WBC 2.6 L (3.8-10.6) k/uL RBC 3.49 L (4.30-5.90) m/uL Hgb 12.1 L (13.0-17.5) gm/dL Hct 37.0 L (39.0-53.0) % MCV 106.0 H (80.0-100.0) fL RDW 17.2 H (11.5-15.5) % Lymphocytes # 0.4 L (1.0-4.8) k/uL Sodium 132 L (137-145) mmol/L Glucose 113 H (74-99) mg/dL Total Protein 5.1 L (6.3-8.2) g/dL Albumin 2.9 L (3.5-5.0) g/dL Influenza Type A RNA Detected H (Not Detectd) Microbiology - Last 24 Hours (Table) 05/08/18 22:00 Urine Culture - Preliminary Urine,Voided Thrombosis Risk Factor Assmnt - Choose All That Apply Each Risk Factor Represents 2 Points: Age 61-74 years Thrombosis Risk Factor Assessment Total Risk Factor Score: 2 Thrombosis Risk Factor Assessment Level: Low Risk Assessment and Plan Assessment: ASSESSMENT Influenza A Pancreatic cancer stage IV with history of multiple stents at [facility] and chemotherapy weekly. Followed by Dr. Dominguez Leukopenia Severe Protein calorie Malnutrition Normocytic anemia of malignancy Elevated liver enzymes Hypothyroidism H/o PE GERD History of testicular cancer DVT prophylaxis Patient is a full code Plan: Pt has been started on Tamiflu. Will continue with IV fluids and Tylenol for fever. Advised rest and activity as tolearted. Continue with anti coagulat ion and GI prophylaxis. Resumed his home meds. Treatment plan was discussed with the pt at bed side in detail. Further recommendations to follow depending on the progress of the patient. Overall prognosis is poor.
[2018-05-10] MEDS: LEVOTHYROXINE 100 MCG TAB PO SCH (06:08)
[2018-05-10 08:07] LABS: Anisocytosis Slight; Basophils % (A) 0 %; Eosinophils % (A) 1 %; HCT 27.1 % (39.0-53.0); Lymphocytes # (A) 0.3 k/uL (1.0-4.8); Lymphocytes % (A) 13 %; MCH 34.4 pg (25.0-35.0); MCHC 33.1 g/dL (31.0-37.0); MCV 103.9 fL (80.0-100.0); Macrocytosis Moderate; Mean Platelet Volume 6.7; Monocytes # (A) 0.1 k/uL (0-1.0); Monocytes % (A) 5 %; Neutrophils # (A) 1.8 k/uL (1.3-7.7); Neutrophils % (A) 79 %; Platelet Count 244 k/uL (150-450); RBC 2.61 m/uL (4.30-5.90); RDW 16.8 % (11.5-15.5); WBC 2.3 k/uL (3.8-10.6)
[2018-05-10] MEDS: PANTOPRAZOLE 40 MG/10 ML VIAL IV SCH (08:41)
[2018-05-10] MEDS: APIXABAN 5 MG TAB PO SCH (08:43)
[2018-05-10] MEDS: FLUTICASONE 50MCG/SPRAY NASAL 16GM EA NOSTRIL SCH (08:43)
[2018-05-10] MEDS: PANTOPRAZOLE 40 MG TABLET PO SCH (08:43)
[2018-05-10] MEDS: guaiFENesin 600 MG TABLET.ER PO SCH (08:43)
[2018-05-10] MEDS: DOCUSATE 100 MG CAP PO SCH (08:43)
[2018-05-10] MEDS: URSODIOL 300 MG CAP PO SCH (08:44)
[2018-05-10] MEDS: NYSTATIN 100,000 UNIT/ML 60 ML BOTTLE PO SCH ×2 (08:44→13:28)
[2018-05-10] MEDS: MEGESTROL 400 MG/10 ML CUP PO SCH (08:44)
[2018-05-10 08:54] LABS: Poikilocytosis (M) Present
[2018-05-10 12:48] LABS: Immunoglobulin M 20.1 mg/dL (40.0-280.0)
[2018-05-10 14:35] VITALS: BP 145/87; PULSE 78; RESP 16; TEMP 98.6
--- NOTE | 2018-05-10 14:49 | P.DS ---
Providers Date of admission: 05/08/18 20:08 Attending physician: Lizbeth Larkin Consults: 05/08/18 20:37 Consult Physician Stat Consulting Provider: Francisco Dominguez Consult Reason/Comments: Panc Cancer, Influenza, Leukopenia Do you want consulting provider notified?: Yes Primary care physician: Shelby [facility] Course: 67-year-old pleasant gentleman with pancreatic cancer history actively receiving chemotherapy mildly neutropenic came in with fever or body aches found to have influenza infection patient is complaining of Lasix from production which is minimal at this time patient will be discharged on Tamiflu at this point of time and do not have any evidence of Bactrim infection. Although patient is definitely high risk for the second of actually infection. Patient was asked to come back if her his sputum turns brownish or greenish in color, if he starts having fevers. Her as patient is clinically doing well does have some bibasilar atelectasis with minimal bibasilar crackles and will be discharged home at this time. Patient was bit hyponatremic and do not have any repeat serum sodium at this time probably secondary to hypovolemic hyponatremia patient was receiving IV fluids expected that improved by now. PHYSICAL EXAMINATION: GENERAL: The patient is alert and oriented x3, not in any acute distress. Well developed, well nourished. HEENT: Pupils are round and equally reacting to light. EOMI. No scleral icterus. No conjunctival pallor. Normocephalic, atraumatic. No pharyngeal erythema. No thyromegaly. CARDIOVASCULAR: S1 and S2 present. No murmurs, rubs, or gallops. PULMONARY: Minimal bibasilar crackles fairly good air entry into bilateral lung lopez ABDOMEN: Soft, nontender, nondistended, normoactive bowel sounds. No palpable organomegaly. MUSCULOSKELETAL: No joint swelling or deformity. EXTREMITIES: No cyanosis, clubbing, or pedal edema. NEUROLOGICAL: Gross neurological examination did not reveal any focal deficits. SKIN: No rashes. Assessment and Plan Influenza A infection and sepsis secondary to influenza A Pancreatic cancer stage IV with history of multiple stents at [facility] and chemotherapy weekly. Followed by Dr. Dominguez Leukopenia Normocytic anemia of malignancy Hypothyroidism H/o PE GERD History of testicular cancer Patient Condition at Discharge: Stable Plan - Discharge Summary New Discharge Prescriptions: No Action Fluticasone Nasal [place] [Flonase Nasal [place]] 2 spray EA NOSTRIL DAILY Ursodiol 300 mg PO BID Levothyroxine Sodium [Synthroid] 100 mcg PO DAILY Prochlorperazine [Compazine] 10 mg PO Q6H PRN PRN Reason: Nausea Acetaminophen [Tylenol Extra Strength] 500 - 1,000 mg PO Q6H PRN PRN Reason: Pain Apixaban [Eliquis] 5 mg PO BID Nystatin 100,000 Unit/ml Susp [Mycostatin Oral Susp] 500,000 unit PO QID guaiFENesin [Mucinex] 600 mg PO DAILY Pantoprazole Sodium [Protonix] 40 mg PO BID #60 tablet. Omeprazole 20 mg PO DAILY Megestrol Acetate [Megace] 800 mg PO DAILY Docusate [Colace] 100 mg PO BID D-Methorphan/PE/Acetaminophen [Theraflu Expressmax Day Caplet] 1 tab PO BID Polyethylene Glycol 3350 [Miralax] 17 gm PO DAILY PRN PRN Reason: Constipation Discharge Medication List Fluticasone Nasal [place] [Flonase Nasal [place]] 2 spray EA NOSTRIL DAILY 05/23/16 [History] Ursodiol 300 mg PO BID 03/16/17 [History] Levothyroxine Sodium [Synthroid] 100 mcg PO DAILY 06/01/17 [History] Prochlorperazine [Compazine] 10 mg PO Q6H PRN 06/18/17 [History] Acetaminophen [Tylenol Extra Strength] 500 - 1,000 mg PO Q6H PRN 11/17/17 [History] Apixaban [Eliquis] 5 mg PO BID 11/17/17 [History] Nystatin 100,000 Unit/ml Susp [Mycostatin Oral Susp] 500,000 unit PO QID 01/16/18 [History] guaiFENesin [Mucinex] 600 mg PO DAILY 01/16/18 [History] Pantoprazole Sodium [Protonix] 40 mg PO BID #60 tablet. 02/07/18 [Rx] D-Methorphan/PE/Acetaminophen [Theraflu Expressmax Day Caplet] 1 tab PO BID 05/08/18 [History] Docusate [Colace] 100 mg PO BID 05/08/18 [History] Megestrol Acetate [Megace] 800 mg PO DAILY 05/08/18 [History] Omeprazole 20 mg PO DAILY 05/08/18 [History] Polyethylene Glycol 3350 [Miralax] 17 gm PO DAILY PRN 05/08/18 [History] Follow up Appointment(s)/Referral(s): Shelby Styles MD [Primary Care Provider] - 1-2 days
[2018-05-10] MEDS ORDERED: OSELTAMIVIR 75 MG CAP PO STA (16:11)
== END 2018-05-10 16:25 | disposition home or self-care (01) | DRG 871 ==
LOC: EC 17:45 → 4SSUR 20:08
PROVIDERS: ADMIT Hospitalist; ATTEND Hospitalist
DX: A41.89 Other specified sepsis (principal); E43 Unspecified severe protein-calorie malnutrition; C25.9 Malignant neoplasm of pancreas, unspecified; C78.7 Secondary malignant neoplasm of liver and intrahepatic bile duct; E87.1 Hypo-osmolality and hyponatremia; J98.11 Atelectasis; D63.0 Anemia in neoplastic disease; D72.819 Decreased white blood cell count, unspecified; E03.9 Hypothyroidism, unspecified; E86.1 Hypovolemia; J10.1 Influenza due to other identified influenza virus with other respiratory manifestations; R74.8 Abnormal levels of other serum enzymes; K21.9 Gastro-esophageal reflux disease without esophagitis; Z79.01 Long term (current) use of anticoagulants; Z68.28 Body mass index [BMI] 28.0-28.9, adult; Z79.890 Hormone replacement therapy; Z79.899 Other long term (current) drug therapy; Z80.3 Family history of malignant neoplasm of breast; Z80.52 Family history of malignant neoplasm of bladder; Z85.47 Personal history of malignant neoplasm of testis; Z86.711 Personal history of pulmonary embolism; Z92.21 Personal history of antineoplastic chemotherapy; Z88.5 Allergy status to narcotic agent; Z79.51 Long term (current) use of inhaled steroids
CPT/HCPCS: 36415; 71046; 80053; 81003; 82784; 83605; 84484; 85025; 85610; 85730; 87040; 87086; 87502; 93005; 94640; 99285

== ENCOUNTER 2018-05-24 13:12 | Inpatient (IN) | payer OTHER, MEDICARE, BC ==
[2018-05-24] MEDS ORDERED: SODIUM CHLORIDE 0.9% 1,000 ML IV STA (13:57)
[2018-05-24] MEDS ORDERED: ACETAMINOPHEN TAB 500 MG TAB PO STA (14:06)
[2018-05-24] MEDS ORDERED: HYDROmorphone 1 MG/ML 1 ML SYRINGE IVP STA (14:36)
[2018-05-24 14:53] LABS: ALT 19 U/L (21-72); AST 16 U/L (17-59); Albumin 2.6 g/dL (3.5-5.0); Alkaline Phosphatase 58 U/L (38-126); Anion Gap 9 mmol/L; Blood Urea Nitrogen 16 mg/dL (9-20); Calcium 8.5 mg/dL (8.4-10.2); Carbon Dioxide 20 mmol/L (22-30); Chloride 105 mmol/L (98-107); Glucose 130 mg/dL (74-99); Potassium 3.8 mmol/L (3.5-5.1); Sodium 134 mmol/L (137-145); Total Bilirubin 0.6 mg/dL (0.2-1.3); Total Protein 4.6 g/dL (6.3-8.2)
--- NOTE | 2018-05-24 14:59 | ED ---
Fever HPI - General Chief Complaint: Fever Stated Complaint: Fever Time Seen by Provider: 05/24/18 13:52 Source: patient, family, RN notes reviewed Mode of arrival: ambulatory Limitations: no limitations - History of Present Illness Initial Comments: Is a 67-year-old male history of pancreatic cancer. Last chemotherapy 6 days ago who presented with the onset this morning of fevers chills shakes. No overt cough no phlegm production is improved 100.4 this morning. No dysuria no other symptoms reported at this time he has had decreased oral intake. MD Complaint: fever - Related Data Home Medications Medication Instructions Recorded Confirmed Fluticasone Nasal [place] [Flonase 2 spray EA NOSTRIL DAILY 05/23/16 05/24/18 Nasal [place]] Ursodiol 300 mg PO BID 03/16/17 05/24/18 Levothyroxine Sodium [Synthroid] 100 mcg PO DAILY 06/01/17 05/24/18 Acetaminophen [Tylenol Extra 500 - 1,000 mg PO Q6H PRN 11/17/17 05/24/18 Strength] Apixaban [Eliquis] 5 mg PO BID 11/17/17 05/24/18 Nystatin 100,000 Unit/ml Susp 500,000 unit PO QID 01/16/18 05/24/18 [Mycostatin Oral Susp] guaiFENesin [Mucinex] 600 mg PO DAILY PRN 01/16/18 05/24/18 Docusate [Colace] 100 mg PO BID 05/08/18 05/24/18 Megestrol Acetate [Megace] 800 mg PO DAILY 05/08/18 05/24/18 Omeprazole 20 mg PO DAILY 05/08/18 05/24/18 Polyethylene Glycol 3350 [Miralax] 17 gm PO DAILY PRN 05/08/18 05/24/18 Guaifen/Dextromethorphan/PE 20 ml PO BID 05/24/18 05/24/18 [Mucinex Fast-Max Congest-Cough] Previous Rx's Medication Instructions Recorded Pantoprazole Sodium [Protonix] 40 mg PO BID #60 tablet. 02/07/18 Allergies Allergy/AdvReac Type Severity Reaction Status Date / Time morphine AdvReac BRADYCARDIC Verified 05/24/18 13:47 Review of Systems ROS Statement: Those systems with pertinent positive or pertinent negative responses have been documented in the HPI. ROS Other: All systems not noted in ROS Statement are negative. 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 will be due next wednesday METS TO LIVER. HX Sepsis. Hypothyroid. upper/lower bridges. PE X2 11/01/17.cataracts History of Any Multi-Drug Resistant Organisms: None Reported Past Surgical History: Hernia Repair, Tonsillectomy Additional Past Surgical History / Comment(s): 1979 Lt Testicle, lymph nodes removed along spine. Right Inguinal Hernia Repair x3 with mesh. has a power port. Hemorrhoidectomy (2011), Colonoscopy (Jan 2015), Titanium Stent in Pancreas (02/2015 @ [facility]), Restent in 01/2016 ([facility])and in 2016 . ERCP'S. Power Port. 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 Past Psychological History: No Psychological Hx Reported Smoking Status: Never smoker Past Alcohol Use History: None Reported Past Drug Use History: None Reported - Past Family History Mother Family Medical History: Cancer Additional Family Medical History / Comment(s): Cancer x 3, lived until age 89. Sister(s) Family Medical History: Cancer Additional Family Medical History / Comment(s): Breast cancer. Brother(s) Family Medical History: Cancer Father Family Medical History: Cancer Additional Family Medical History / Comment(s): Colon/bladder cancer x 3, at 94 General Exam - General Exam Comments Initial Comments: This is a well up well-nourished awake alert oriented 3 male Limitations: no limitations General appearance: alert, in no apparent distress Head exam: Present: atraumatic, normocephalic, normal inspection Eye exam: Present: normal appearance, PERRL, EOMI. Absent: scleral icterus, conjunctival injection, periorbital swelling ENT exam: Present: mucous membranes dry Neck exam: Present: normal inspection. Absent: tenderness, meningismus, lymphadenopathy Respiratory exam: Present: decreased breath sounds (Decreased breath sounds left). Absent: respiratory distress, wheezes, rales, rhonchi, stridor Cardiovascular Exam: Present: normal rhythm, tachycardia, normal heart sounds. Absent: systolic murmur, diastolic murmur, rubs, gallop, clicks GI/Abdominal exam: Present: soft, normal bowel sounds. Absent: distended, tenderness, guarding, rebound, rigid Extremities exam: Present: normal inspection, full ROM, normal capillary refill. Absent: tenderness, pedal edema, joint swelling, calf tenderness Back exam: Present: normal inspection Neurological exam: Present: alert, oriented X3, CN II-XII intact Psychiatric exam: Present: normal affect, normal mood Skin exam: Present: warm, dry, intact, normal color. Absent: rash Course Vital Signs 05/24/18 05/24/18 13:14 13:56 Temperature 98.4 F 102.8 F H Pulse Rate 129 H 115 H Respiratory 18 18 Rate Blood Pressure 115/79 130/72 O2 Sat by Pulse 98 96 Oximetry - Reevaluation(s) Reevaluation #1: 05/24/18 16:13 I did review the imaging and report is evidence of left basilar infiltrate versus atelectasis. Procedures - Sepsis Sepsis Focused Exam #1 Time Sepsis Criteria Met: 16:00 Sepsis Focused Exam Date: 05/24/18 Sepsis Focused Exam Time: 16:00 Sepsis Focused Exam Complete: Yes Vital Signs & RN Notes Reviewed: Yes Capillary Refill: < 2 Seconds: Fingers, Toes Peripheral Pulses: Normal: Radial (R), Radial (L) Skin Color: Normal for Patient Respiratory Exam: other (Ms. breath sounds on the left base) Cardiovascular Exam: tachycardia Medical Decision Making - Medical Decision Making I did discuss findings with the patient and family member who was present. Patient is feeling somewhat improved after IV fluids. Patient does demonstrate evidence of left lower lobe pneumonia evidence of sepsis with elevated lactic acid fever tachycardia and does demonstrate leukopenia status post chemotherapy. I did discuss case with Dr. Larkin patient will be admitted with consultation by Dr. Dominguez. Visual be started on cefepime - Lab Data Result diagrams: 05/24/18 14:03 05/24/18 14:03 Lab Results 05/24/18 05/24/18 05/24/18 Range/Units 14:03 14:03 14:03 WBC 1.5 L (3.8-10.6) k/uL RBC 4.19 L (4.30-5.90) m/uL Hgb 14.0 D (13.0-17.5) gm/dL Hct 43.0 (39.0-53.0) % MCV 102.6 H (80.0-100.0) fL MCH 33.5 (25.0-35.0) pg MCHC 32.6 (31.0-37.0) g/dL RDW 17.2 H (11.5-15.5) % Plt Count 220 (150-450) k/uL Neutrophils % 89 % Lymphocytes % 6 % Monocytes % 2 % Eosinophils % 1 % Basophils % 1 % Neutrophils # 1.4 (1.3-7.7) k/uL Lymphocytes # 0.1 L (1.0-4.8) k/uL Monocytes # 0.0 (0-1.0) k/uL Eosinophils # 0.0 (0-0.7) k/uL Basophils # 0.0 (0-0.2) k/uL Anisocytosis Slight Macrocytosis Moderate Sodium 134 L (137-145) mmol/L Potassium 3.8 (3.5-5.1) mmol/L Chloride 105 (98-107) mmol/L Carbon Dioxide 20 L (22-30) mmol/L Anion Gap 9 mmol/L BUN 16 (9-20) mg/dL Creatinine 0.83 (0.66-1.25) mg/dL Est GFR (CKD-EPI)AfAm >90 (>60 ml/min/1.73 sqM) Est GFR (CKD-EPI)NonAf >90 (>60 ml/min/1.73 sqM) Glucose 130 H (74-99) mg/dL Plasma Lactic Acid Paddy (0.7-2.0) mmol/L Calcium 8.5 (8.4-10.2) mg/dL Total Bilirubin 0.6 (0.2-1.3) mg/dL AST 16 L (17-59) U/L ALT 19 L (21-72) U/L Alkaline Phosphatase 58 (38-126) U/L Total Protein 4.6 L (6.3-8.2) g/dL Albumin 2.6 L (3.5-5.0) g/dL Influenza Type A RNA Not Detected (Not Detectd) Influenza Type B (PCR) Not Detected (Not Detectd) 05/24/18 Range/Units 14:03 WBC (3.8-10.6) k/uL RBC (4.30-5.90) m/uL Hgb (13.0-17.5) gm/dL Hct (39.0-53.0) % MCV (80.0-100.0) fL MCH (25.0-35.0) pg MCHC (31.0-37.0) g/dL RDW (11.5-15.5) % Plt Count (150-450) k/uL Neutrophils % % Lymphocytes % % Monocytes % % Eosinophils % % Basophils % % Neutrophils # (1.3-7.7) k/uL Lymphocytes # (1.0-4.8) k/uL Monocytes # (0-1.0) k/uL Eosinophils # (0-0.7) k/uL Basophils # (0-0.2) k/uL Anisocytosis Macrocytosis Sodium (137-145) mmol/L Potassium (3.5-5.1) mmol/L Chloride (98-107) mmol/L Carbon Dioxide (22-30) mmol/L Anion Gap mmol/L BUN (9-20) mg/dL Creatinine (0.66-1.25) mg/dL Est GFR (CKD-EPI)AfAm (>60 ml/min/1.73 sqM) Est GFR (CKD-EPI)NonAf (>60 ml/min/1.73 sqM) Glucose (74-99) mg/dL Plasma Lactic Acid Paddy 3.5 H* (0.7-2.0) mmol/L Calcium (8.4-10.2) mg/dL Total Bilirubin (0.2-1.3) mg/dL AST (17-59) U/L ALT (21-72) U/L Alkaline Phosphatase (38-126) U/L Total Protein (6.3-8.2) g/dL Albumin (3.5-5.0) g/dL Influenza Type A RNA (Not Detectd) Influenza Type B (PCR) (Not Detectd) - EKG Data -: EKG Interpreted by Ok EKG shows normal: sinus rhythm (EKG shows sinus tachycardia of 119 OK interval 1:30 QRS duration 74 QT since she creatine/447 nonspecific anterior changes.) Critical Care Time Critical Care Time: Yes Critical Care Time: 42 minutes of critical care time which includes initial presentation with history physical labs x-rays. Multiple reevaluation patient response to therapy. Discussed with patient family regarding findings on multiple occasions discussion with the main physician admission orders and documentation of the above. Disposition Clinical Impression: Left lower lobe pneumonia, Sepsis, Leukopenia, Pancreatic cancer, Dehydration, Febrile illness, acute Disposition: ADMITTED IP TO THIS [facility] Condition: Serious Referrals: Shelby Styles MD [Primary Care Provider] - 1-2 days
[2018-05-24] MEDS ORDERED: SODIUM CHLORIDE 0.9% 2,000 ML IV ONE (15:00)
[2018-05-24 15:01] LABS: Anisocytosis Slight; Basophils % (A) 1 %; Eosinophils % (A) 1 %; Lymphocytes # (A) 0.1 k/uL (1.0-4.8); Lymphocytes % (A) 6 %; MCH 33.5 pg (25.0-35.0); MCHC 32.6 g/dL (31.0-37.0); MCV 102.6 fL (80.0-100.0); Macrocytosis Moderate; Mean Platelet Volume 6.8; Monocytes % (A) 2 %; Neutrophils # (A) 1.4 k/uL (1.3-7.7); Neutrophils % (A) 89 %; Platelet Count 220 k/uL (150-450); RBC 4.19 m/uL (4.30-5.90); RDW 17.2 % (11.5-15.5); WBC 1.5 k/uL (3.8-10.6)
--- NOTE | 2018-05-24 15:23 | XR ---
EXAMINATION TYPE: XR chest 2V DATE OF EXAM: 05/24/2018 COMPARISON: 05/08/2018 HISTORY: 67-year-old male with fever and cough TECHNIQUE: AP and lateral views FINDINGS: Left anterior chest wall injection port with catheter tip at the lower SVC. Continued elevation of le ft hemidiaphragm. Heart upper limits of normal in size. There may be some patchy peripheral left basi lar opacity. Continued elevation of the left hemidiaphragm. No sizable effusion on the lateral view. Multiple surgical clips in the upper abdomen an likely a metallic biliary stent. IMPRESSION: There may be some focal peripheral left basilar opacity that could represent atelectasis or early inf iltrate. No effusion seen on the lateral view.
[2018-05-24] MEDS ORDERED: CEFEPIME 2 GM in SODIUM CHLORIDE 0.9% 100 ML IVPB STA (16:11)
[2018-05-24] MEDS ORDERED: guaiFENesin 600 MG TABLET.ER PO PRN (16:27)
[2018-05-24] MEDS ORDERED: POLYETHYLENE GLYCOL 3350 17 GM POWD.PACK PO PRN (16:27)
[2018-05-24] MEDS ORDERED: PANTOPRAZOLE 40 MG TABLET PO SCH (21:00)
[2018-05-24] MEDS: SODIUM CHLORIDE 0.9% 1,000 ML IV SCH (22:04)
[2018-05-24] MEDS ORDERED: VANCOMYCIN 1,000 MG in SODIUM CHLORIDE 0.9% IRRIGATIO 1,000 ML IRRIGATION ONE (22:04)
[2018-05-24] MEDS ORDERED: VANCOMYCIN IV PER PHARMACY 1 EACH MISC MISCELLANE PRN (22:04)
[2018-05-24] MEDS ORDERED: ALPRAZolam 0.25 MG TAB PO PRN (22:05)
[2018-05-24] MEDS ORDERED: TEMAZEPAM 15 MG CAP PO PRN (22:05)
[2018-05-24] MEDS: URSODIOL 300 MG CAP PO SCH (22:05)
[2018-05-24] MEDS: CLOTRIMAZOLE TROCHE 10 MG TROCHE PO SCH (22:05)
[2018-05-24] MEDS: APIXABAN 5 MG TAB PO SCH (22:09)
[2018-05-24] MEDS: DOCUSATE 100 MG CAP PO SCH (22:10)
[2018-05-24 22:34] VITALS: BMI 28.8
[2018-05-24] MEDS: VANCOMYCIN 1,500 MG in SODIUM CHLORIDE 0.9% 250 ML IVPB SCH (22:54)
--- NOTE | 2018-05-24 23:16 | HP ---
HISTORY AND PHYSICAL CHIEF COMPLAINT: Fever, chills and cough. HISTORY OF PRESENT ILLNESS: This 67-year-old gentleman with a past history of cancer status post multiple stents, multiple episodes of cholangitis and sepsis. Previously also receiving chemotherapy. 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 The patient had a previous episode of multiple episodes of cholangitis. The patient was recently admitted to [facility] with acute influenza A and sepsis. The patient also had leukopenia at that time. After chemotherapy, most recent round of chemotherapy, the patient experienced leukopenia which is probably with a white count 1.5 today. The was called today because the patient is feeling rigors and chills and feeling sick today. The patient has had cough for the last couple days. Patient came to [facility] and was found to have left lower lobe pneumonia with features of sepsis and patient admitted to the hospital for further evaluation and treatment. There is no history any headache, loss of consciousness, seizures. No history of chest pain, palpitations, hematochezia or melena at this time. PAST MEDICAL HISTORY: History of GERD, history of pulmonary embolism, history of testicular cancer, history of pancreatic cancer, ampulla of Vater stage IV, history of sepsis, history of hypothyroidism, history of hernia repair, history of tonsillectomy. MEDICATIONS: Prior to admission home medications are reviewed and include: 1. Mucinex 20 mL b.i.d. 4. MiraLAX 17 g p.o. daily p.r.n. 5. Protonix 40 mg p.o. b.i.d. 6. Omeprazole 20 mg. 7. Mycostatin 500,000 p.o. q.i.d. 8. Megace 800 mg p.o. daily. 9. Synthroid 100 mcg p.o. daily. 10.Flonase 2 sprays daily. 11.Colace 100 mg p.o. b.i.d. 12.Eliquis 5 mg p.o. b.i.d. 13.Tylenol extra strength 500/1000 mg q.6h p.r.n. ALLERGIES: MORPHINE. FAMILY HISTORY: History of cancer in the family. SOCIAL HISTORY: No history of smoking. No history of alcohol intake. REVIEW OF SYSTEMS: ENT: Diminished hearing and diminished vision. CARDIOVASCULAR: No angina or palpitations. RESPIRATION: As mentioned earlier. GI as mentioned earlier. : No dysuria. NERVOUS SYSTEM: As mentioned earlier. ALLERGY/IMMUNOLOGY: As mentioned earlier. HEMATOLOGY/ONCOLOGY: No history of anemia. MUSCULOSKELETAL: As mentioned earlier. ENDOCRINE: No history of diabetes or hypothyroidism. CONSTITUTIONAL: As mentioned earlier. Dermatology: Negative. Rheumatology: Negative. Psychiatry: As mentioned earlier. PHYSICAL EXAMINATION: Alert oriented x3. Pulse 80, blood pressure 130/76, respiration 18, temperature 98.1, T-max 102.8, pulse ox 100 percent on room air. HEENT: Conjunctivae normal. Oral mucosa moist. Neck is no jugular venous distention. No carotid bruit. No lymph node enlargement. CARDIOVASCULAR: S1, S2 muffled. No S3, no S4. RESPIRATORY: Breath sounds diminished in the bases. A few scattered rhonchi. No crackles. ABDOMEN: Soft, nontender. No mass palpable. Ascites. Legs: No edema. No swelling. NERVOUS SYSTEM: Higher functions as mentioned moves all 4 limbs. No focal motor or sensory deficits. Lymphatics: No lymph nodes palpable in the neck, axillae or groin. Skin: No ulcer, rash or bleeding. Joints: No active deforming arthropathy. LAB STUDIES: WBC 11.2, hemoglobin is 14, platelets are 220. Sodium 130, potassium 3.8, and lactic acid 3.5. Influenza is negative. ASSESSMENT: 1. Fever with possibly neutropenic sepsis. 2. Acute left lower lobe pneumonia possibly gram-negative. 3. Leukopenia. 4. Hyponatremia. 5. Elevated lactic acid secondary to sepsis. 6. 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 7. History of testicular cancer. 8. History of gastroesophageal reflux disease. 9. History of pulmonary embolus. 10.History of hypothyroidism. 11.History of sepsis. 12.History of cataracts. 13.History of tonsillectomy. 14.History of hernia repair. RECOMMENDATIONS AND DISCUSSION: In this 67-year-old gentleman who presented with multiple complex medical issues, we will monitor the patient closely, continue the current medications, management and symptomatic treatment, we will initiate broad-spectrum IV antibiotics including cefepime and as well as vancomycin. I would also recommend repeat labs. Otherwise I recommend infectious disease evaluation with Dr. Spivey and Oncology evaluation by Dr. Oliver team. Otherwise, repeat labs will be ordered. Guarded prognosis because of multiple complex medical issues. Further recommendations to follow. See orders for details. DVT prophylaxis. Patient is already on Eliquis. This now. MMODL / IJN: [id number] / MTDD
[2018-05-25 00:27] LABS: Appearance,Urine Cloudy (Clear); Bacteria,Urine Rare /hpf; Bilirubin,Urine Negative (Negative); Blood,Urine Negative (Negative); Calcium Oxalate Crystals,Urine Moderate /hpf; Color,Urine Yellow; Glucose,Urine (UA) Negative (Negative); Hyaline Casts,Urine 14 /lpf (0-2); Ketones,Urine Negative (Negative); Leukocyte Esterase,Urine Negative (Negative); Mucus,Urine Many /hpf; Nitrite,Urine Negative (Negative); Protein,Urine 1+ (Negative); RBC,Urine 1 /hpf (0-5); Specific Gravity,Urine 1.035 (1.001-1.035); Squamous Epithelial Cell,Urine 1 /hpf (0-4); WBC,Urine <1 /hpf (0-5)
[2018-05-25] MEDS: CLOTRIMAZOLE TROCHE 10 MG TROCHE PO SCH ×5 (01:08→21:09)
[2018-05-25] MEDS: SODIUM CHLORIDE 0.9% 1,000 ML IV SCH ×4 (01:09→21:25)
[2018-05-25] MEDS: CEFEPIME 2 GM in SODIUM CHLORIDE 0.9% 100 ML IVPB SCH ×3 (01:54→17:32)
[2018-05-25] MEDS: LEVOTHYROXINE 100 MCG TAB PO SCH (05:25)
[2018-05-25] MEDS: FLUTICASONE 50MCG/SPRAY NASAL 16GM EA NOSTRIL SCH (07:36)
[2018-05-25] MEDS: MEGESTROL 400 MG/10 ML CUP PO SCH (07:37)
[2018-05-25] MEDS: APIXABAN 5 MG TAB PO SCH ×2 (07:37→21:24)
[2018-05-25] MEDS: DOCUSATE 100 MG CAP PO SCH ×2 (07:37→21:24)
[2018-05-25] MEDS: URSODIOL 300 MG CAP PO SCH ×2 (07:38→21:24)
[2018-05-25] MEDS ORDERED: PANTOPRAZOLE 40 MG/10 ML VIAL IV SCH (09:00)
[2018-05-25] MEDS ORDERED: NON-FORMULARY DRUG (Omeprazole [Omeprazole] 20 MG) PO SCH (09:00)
--- NOTE | 2018-05-25 09:38 | P.CONS ---
History of Present Illness - Reason for Consult Consult date: 05/25/18 Sepsis - History of Present Illness This is a 67-year-old male patient well known to ID service as he has had previous bouts of E. coli sepsis related to obstruction of his biliary track. 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 There is evidence of bilateral p ulmonary emboli without much symptom is being treated with Eliquis. Patient gives history of influenza A with admission 05/09/2018. Patient states he recovered from the influenza but then developed a cough with thick white sputum production that has been going on for about one week. He also had 1 documented fever at home and came into [facility] emergency center for evaluation. He was febrile with a temperature 102.8, white count 1.5, creatinine 0.93. Lactic acid 3.5 and he is status post 3 L of IV fluid. Albumin 2.6. Influenza negative. Urinalysis was cloudy with calcium oxalate crystals, rare bacteria and hyaline casts. Chest x-ray showed reveals some focal peripheral left basilar Lyle that he could represent atelectasis or elevated a infiltrate. There is a consult in place for Dr. Oliver. Patient is currently on cephapirin and vancomycin. Patient does have oral thrush and his is bringing and nystatin from home. Report to left upper chest wall is functioning well. Review of Systems All systems: negative Constitutional: Reports fever, Denies chills, Denies fatigue, Denies lethargy, Denies malaise, Denies poor appetite, Denies weight loss Eyes: denies blurred vision, denies pain Ears, nose, mouth and throat: Reports mouth pain, Denies dental pain, Denies dysphagia, Denies headache, Denies sore throat, Denies vertigo Cardiovascular: Denies chest pain, Denies dyspnea on exertion, Denies edema, Denies leg edema, Denies lightheadedness, Denies shortness of breath, Denies syncope Respiratory: Reports cough, Reports cough with sputum, Denies dyspnea, Denies excessive sputum, Denies hemoptysis, Denies home oxygen, Denies wheezing Gastrointestinal: Denies abdominal pain, Denies diarrhea, Denies loss of appetite, Denies melena, Denies nausea, Denies vomiting Genitourinary: Denies dysuria, Denies urinary frequency, Denies urinary retention Musculoskeletal: Denies frequent falls, Denies gait dysfunction, Denies myalgias Integumentary: Denies pruritus, Denies rash, Denies wounds Neurological: Denies numbness, Denies weakness Psychiatric: Denies anxiety, Denies depression Endocrine: Denies fatigue, Denies weight change Past Medical History Past Medical History: Cancer, GERD/Reflux, Pulmonary Embolus (PE), Thyroid Disorder Additional Past Medical History / Comment(s): Testicular cancer 1979; Pancreatic Cancer (ampulla of lay), 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 Hypothyroid. upper/lower bridges. PE X2 11/01/17.cataracts History of Any Multi-Drug Resistant Organisms: None Reported Past Surgical History: Hernia Repair, Tonsillectomy Additional Past Surgical History / Comment(s): 1979 Lt Testicle, lymph nodes removed along spine. Right Inguinal Hernia Repair x3 with mesh. has a power port. Hemorrhoidectomy (2011), Colonoscopy (Jan 2015), Titanium Stent in Pancreas (02/2015 @ [place]), Restent in 01/2016 ([facility])and in 2017 . ERCP'S. Power Port. duodenal stent for obstruction not malignant Past Anesthesia/Blood Transfusion Reactions: Previous Problems w/ Anesthesia Additional Past Anesthesia/Blood Transfusion Reaction / Comm: DIFFICULTY URINATING W/ HERNIA, HEMORRHOID SURGERIES. Past Psychological History: No Psychological Hx Reported Additional Psychological History / Comment(s): Pt resides with his spouse and son. There is a cat in the household. Pt is independent. 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 He lives at home with his and son. There is a cat in the home. No recent travel or service. Past Drug Use History: None Reported Additional Drug Use History / Comment(s): . - Past Family History Mother Family Medical History: Cancer Additional Family Medical History / Comment(s): Cancer x 3, lived until age 89. Sister(s) Family Medical History: Cancer Additional Family Medical History / Comment(s): Breast cancer. Brother(s) Family Medical History: Cancer Father Family Medical History: Cancer Additional Family Medical History / Comment(s): Colon/bladder cancer x 3, at 94 Medications and Allergies Home Medications Medication Instructions Recorded Confirmed Type Fluticasone Nasal [place] [Flonase 2 spray EA NOSTRIL DAILY 05/23/16 05/24/18 History Nasal [place]] Ursodiol 300 mg PO BID 03/16/17 05/24/18 History Levothyroxine Sodium [Synthroid] 100 mcg PO DAILY 06/01/17 05/24/18 History Acetaminophen [Tylenol Extra 500 - 1,000 mg PO Q6H PRN 11/17/17 05/24/18 History Strength] Apixaban [Eliquis] 5 mg PO BID 11/17/17 05/24/18 History Nystatin 100,000 Unit/ml Susp 500,000 unit PO QID 01/16/18 05/24/18 History [Mycostatin Oral Susp] guaiFENesin [Mucinex] 600 mg PO DAILY PRN 01/16/18 05/24/18 History Pantoprazole Sodium [Protonix] 40 mg PO BID #60 tablet. 02/07/18 05/24/18 Rx Docusate [Colace] 100 mg PO BID 05/08/18 05/24/18 History Megestrol Acetate [Megace] 800 mg PO DAILY 05/08/18 05/24/18 History Omeprazole 20 mg PO DAILY 05/08/18 05/24/18 History Polyethylene Glycol 3350 [Miralax] 17 gm PO DAILY PRN 05/08/18 05/24/18 History Guaifen/Dextromethorphan/PE 20 ml PO BID 05/24/18 05/24/18 History [Mucinex Fast-Max Congest-Cough] Allergies Allergy/AdvReac Type Severity Reaction Status Date / Time morphine AdvReac BRADYCARDIC Verified 05/24/18 13:47 Physical Exam Vitals: Vital Signs Temp Pulse Pulse Resp BP BP Pulse Ox 05/25/18 05:26 98.5 F 71 18 145/79 96 05/24/18 22:40 18 05/24/18 21:15 98.4 F 72 18 124/75 98 05/24/18 21:06 98.1 F 78 18 112/78 98 05/24/18 18:00 76 20 100/76 97 05/24/18 17:32 98.1 F 80 18 113/76 100 05/24/18 13:56 102.8 F H 115 H 18 130/72 96 05/24/18 13:14 98.4 F 129 H 18 115/79 98 Intake and Output 05/24/18 05/25/18 05/25/18 22:59 06:59 14:59 Intake Total 590 590 Balance 590 590 Intake: Oral 590 590 Other: # Voids 3 # Bowel Movements 1 Gen: This is a 67-year-old male. He is resting in bed appears to be comfortable and in no acute distress. HEENT: Head is atraumatic, normocephalic. Pupils equal, round. Sclerae is anicteric. Oral mucous membranes are moist. Positive thrush. NECK: Supple. No JVD. No lymphadenopathy. No thyromegaly. LUNGS: Clear to auscultation. No wheezes or rhonchi. No intercostal retractions. No accessory muscle usage. No chest wall tenderness. HEART: Regular rate and rhythm. No murmur. Port to the left upper anterior chest with no surrounding erythema or tenderness. ABDOMEN: Soft. Bowel sounds are present. No masses. No tenderness. EXTREMITIES: No pedal edema. No calf tenderness. Dorsalis pedis +2 bilaterally. NEUROLOGICAL: Patient is awake, alert and oriented x3. Cranial nerves 2 through 12 are grossly intact. Results Results: Laboratory Results WBC 1.5 k/uL (3.8-10.6) L 05/24/18 14:03 RBC 4.19 m/uL (4.30-5.90) L 05/24/18 14:03 Hgb 14.0 gm/dL (13.0-17.5) D 05/24/18 14:03 Hct 43.0 % (39.0-53.0) 05/24/18 14:03 MCV 102.6 fL (80.0-100.0) H 05/24/18 14:03 MCH 33.5 pg (25.0-35.0) 05/24/18 14:03 MCHC 32.6 g/dL (31.0-37.0) 05/24/18 14:03 RDW 17.2 % (11.5-15.5) H 05/24/18 14:03 Plt Count 220 k/uL (150-450) 05/24/18 14:03 Neutrophils % 89 % 05/24/18 14:03 Lymphocytes % 6 % 05/24/18 14:03 Monocytes % 2 % 05/24/18 14:03 Eosinophils % 1 % 05/24/18 14:03 Basophils % 1 % 05/24/18 14:03 Neutrophils # 1.4 k/uL (1.3-7.7) 05/24/18 14:03 Lymphocytes # 0.1 k/uL (1.0-4.8) L 05/24/18 14:03 Monocytes # 0.0 k/uL (0-1.0) 05/24/18 14:03 Eosinophils # 0.0 k/uL (0-0.7) 05/24/18 14:03 Basophils # 0.0 k/uL (0-0.2) 05/24/18 14:03 Anisocytosis Slight 05/24/18 14:03 Macrocytosis Moderate 05/24/18 14:03 Sodium 134 mmol/L (137-145) L 05/24/18 14:03 Potassium 3.8 mmol/L (3.5-5.1) 05/24/18 14:03 Chloride 105 mmol/L (98-107) 05/24/18 14:03 Carbon Dioxide 20 mmol/L (22-30) L 05/24/18 14:03 Anion Gap 9 mmol/L 05/24/18 14:03 BUN 16 mg/dL (9-20) 05/24/18 14:03 Creatinine 0.83 mg/dL (0.66-1.25) 05/24/18 14:03 Est GFR (CKD-EPI)AfAm >90 (>60 ml/min/1.73 sqM) 05/24/18 14:03 Est GFR (CKD-EPI)NonAf >90 (>60 ml/min/1.73 sqM) 05/24/18 14:03 Glucose 130 mg/dL (74-99) H 05/24/18 14:03 Lactic Ac Sepsis Rflx Y 05/24/18 14:48 Plasma Lactic Acid Paddy 1.1 mmol/L (0.7-2.0) 05/24/18 18:20 Calcium 8.5 mg/dL (8.4-10.2) 05/24/18 14:03 Total Bilirubin 0.6 mg/dL (0.2-1.3) 05/24/18 14:03 AST 16 U/L (17-59) L 05/24/18 14:03 ALT 19 U/L (21-72) L 05/24/18 14:03 Alkaline Phosphatase 58 U/L (38-126) 05/24/18 14:03 Total Protein 4.6 g/dL (6.3-8.2) L 05/24/18 14:03 Albumin 2.6 g/dL (3.5-5.0) L 05/24/18 14:03 Urine Color Yellow 05/24/18 22:30 Urine Appearance Cloudy (Clear) 05/24/18 22:30 Urine pH 6.0 (5.0-8.0) 05/24/18 22:30 Ur Specific [place] 1.035 (1.001-1.035) 05/24/18 22:30 Urine Protein 1+ (Negative) H 05/24/18 22:30 Urine Glucose (UA) Negative (Negative) 05/24/18 22:30 Urine Ketones Negative (Negative) 05/24/18 22:30 Urine Blood Negative (Negative) 05/24/18 22:30 Urine Nitrite Negative (Negative) 05/24/18 22:30 Urine Bilirubin Negative (Negative) 05/24/18 22:30 Urine Urobilinogen 4.0 mg/dL (<2.0) 05/24/18 22:30 Ur Leukocyte Esterase Negative (Negative) 05/24/18 22:30 Urine RBC 1 /hpf (0-5) 05/24/18 22:30 Urine WBC <1 /hpf (0-5) 05/24/18 22:30 Ur Squamous Epith Cells 1 /hpf (0-4) 05/24/18 22:30 Calcium Oxalate Crystal Moderate /hpf (None) H 05/24/18 22:30 Urine Bacteria Rare /hpf (None) H 05/24/18 22:30 Hyaline Casts 14 /lpf (0-2) H 05/24/18 22:30 Urine Mucus Many /hpf (None) H 05/24/18 22:30 Influenza Type A RNA Not Detected (Not Detectd) 05/24/18 14:03 Influenza Type B (PCR) Not Detected (Not Detectd) 05/24/18 14:03 CBC & Chem 7: 05/27/18 07:20 05/27/18 07:20 Labs: Abnormal Lab Results - Last 24 Hours (Table) 05/24/18 05/24/18 05/24/18 Range/Units 14:03 14:03 14:03 WBC 1.5 L (3.8-10.6) k/uL RBC 4.19 L (4.30-5.90) m/uL MCV 102.6 H (80.0-100.0) fL RDW 17.2 H (11.5-15.5) % Lymphocytes # 0.1 L (1.0-4.8) k/uL Sodium 134 L (137-145) mmol/L Carbon Dioxide 20 L (22-30) mmol/L Glucose 130 H (74-99) mg/dL Plasma Lactic Acid Paddy 3.5 H* (0.7-2.0) mmol/L AST 16 L (17-59) U/L ALT 19 L (21-72) U/L Total Protein 4.6 L (6.3-8.2) g/dL Albumin 2.6 L (3.5-5.0) g/dL Urine Protein (Negative) Calcium Oxalate Crystal (None) /hpf Urine Bacteria (None) /hpf Hyaline Casts (0-2) /lpf Urine Mucus (None) /hpf 05/24/18 Range/Units 22:30 WBC (3.8-10.6) k/uL RBC (4.30-5.90) m/uL MCV (80.0-100.0) fL RDW (11.5-15.5) % Lymphocytes # (1.0-4.8) k/uL Sodium (137-145) mmol/L Carbon Dioxide (22-30) mmol/L Glucose (74-99) mg/dL Plasma Lactic Acid Paddy (0.7-2.0) mmol/L AST (17-59) U/L ALT (21-72) U/L Total Protein (6.3-8.2) g/dL Albumin (3.5-5.0) g/dL Urine Protein 1+ H (Negative) Calcium Oxalate Crystal Moderate H (None) /hpf Urine Bacteria Rare H (None) /hpf Hyaline Casts 14 H (0-2) /lpf Urine Mucus Many H (None) /hpf Assessment and Plan Plan: This is a 67-year-old male patient with a complex medical history with pancreaticcancer metastatic disease to the liver. Patient was recently treated for influenza a. He presents with neutropenic fever and lactic acidosis with concern for left lower lobe pneumonia. He is currently on IV antibiotics in the form of cefepime time and vancomycin which will be continued. Blood culture and urine culture are in progress. Continue supportive care. Further recommendations as patient progresses. The above dictated assessment and findings were discussed with Dr. Spivey. The impression and plan of care have been directed as dictated. Chinyere Rutledge nurse practitioner acting as scribe for Dr. Spivey.
[2018-05-25] MEDS: VANCOMYCIN 1,500 MG in SODIUM CHLORIDE 0.9% 250 ML IVPB SCH ×2 (10:57→22:53)
[2018-05-25 11:34] LABS: Anion Gap 4 mmol/L; Blood Urea Nitrogen 14 mg/dL (9-20); Calcium 8.4 mg/dL (8.4-10.2); Carbon Dioxide 22 mmol/L (22-30); Chloride 108 mmol/L (98-107); Glucose 104 mg/dL (74-99); Sodium 134 mmol/L (137-145)
[2018-05-25 12:17] LABS: Anisocytosis Slight; Basophils % (A) 0 %; Eosinophils % (A) 1 %; HCT 25.7 % (39.0-53.0); Lymphocytes # (A) 0.4 k/uL (1.0-4.8); Lymphocytes % (A) 10 %; MCH 34.4 pg (25.0-35.0); MCHC 33.6 g/dL (31.0-37.0); MCV 102.5 fL (80.0-100.0); Macrocytosis Moderate; Mean Platelet Volume 7.1; Monocytes # (A) 0.1 k/uL (0-1.0); Monocytes % (A) 3 %; Neutrophils # (A) 3.4 k/uL (1.3-7.7); Neutrophils % (A) 84 %; Platelet Count 319 k/uL (150-450); Poikilocytosis Slight; RBC 2.51 m/uL (4.30-5.90); RDW 18.3 % (11.5-15.5); WBC 4.1 k/uL (3.8-10.6)
[2018-05-25 12:19] LABS: HGB 8.6 gm/dL (13.0-17.5)
--- NOTE | 2018-05-25 16:04 | P.CONS ---
History of Present Illness - Reason for Consult Consult date: 05/25/18 on treatment for pancreatic cancer Requesting physician: Lizbeth Larkin - Chief Complaint fever - History of Present Illness Pt admitted with fever at home of 100.4F, 102.8F here, associated with chill and rigors, no vomiting, cough, currently feeling fair, appetite is rather poor. Hgb was 8.9, WBC 2.8 yesterday in office for chemo f/u, he is s/p 18 cycles of liposomal irinotecan with 5FU. Influenza negative, CXR showing left basilar opacity, urine slightly suspicious, urine and blood cultures pending, antibiotic coverage with cefe and vanco. Malignancy History: Pt presented with jaundice January 2015, LFTs and bilirubin were significantly elevated, MRCP 02/23/15 revealed intra and extra hepatic biliary dilatation, 3 suspicious liver lesions and peripancreatic nodes, EGD done at [facility] revealed a suspicious periampullary mass, biospy positive for poorly dif ferentiated adenocarcinoma of pancreaticobiliary or upper GI primary. 03/05/15 core biopsy of the liver lesion was positive for metastatic adenocarcinoma, consistent with pancreaticobiliary or upper GI primary. He initially had external biliary drain then subsequently had a metal internal biliary stent placement and mediport placement. Started [id number] 03/25/15. His Ca 19.9 was followed. 06/13/15 repeat liver MRI revealed possible progression of his disease and mFOLFOX was discontinued and he was started on gemzar/abraxane on 07/02/15. Follow up showed disease stability over time. Gemzar/abraxane was held 11/05/15 due to fever and progressive neuropathy. 11/2015 he was in hospital, found to have E Coli infection and obstruction of biliary stent. He continued on f/u and did well until 04/17/[address] revealed new abdominal nodes and liver lesion. He started onivyde/5FU on 04/28/16. Follow up scans showed improvement in his disease, after 10 cycles, around 09/07 chemo h eld per patient request to have a break due to fatigue. Had obstruction of biliary stent in September 2016, ERCP done, sludge in metal stent so this was replaced with a plastic stent, no evidence of malignancy. He continued on f/u without disease recurrence until 02/07 when LFTs increased, repeat CT CAP 12/8/17 revealed evidence of disease progression in his liver. He started gemzar on 02/05/17, had 3 weeks of treatment, then it was held due to biliary stent blockage and infection,was off treatment until February 2017, resumed 03/29/17. 05/28/17 CT revealed disease progression in the liver and abdominal nodes, 06/14/17 he started gemzar/abraxane. Treatment was interrupted several times due to recurrent biliary stent infection, last treatment was on 08/09/17. 08/23/17 CT CAP showed disease progression with enlarging liver mass, retroperitoneal nodes and ascites. 09/14/17 he resumed onyvide/5FU, 11/01/17 CT revealed stable to improving adenopathy, incidentally found to have bilateral PE, started eliquis. 11/15/17 he developed progressive vomiting, Dr. Taveras performed EGD, showed obstruction at duodenum, felt to be secondary to trauma from previous multiple stents, referred to [facility] and had a stent placed. 01/03/[address] CAP revealed improvement in his disease. His nost recent image on 04/28/18 showed stable disease. 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 Hypothyroid. upper/lower bridges. PE X2 11/01/17.cataracts History of Any Multi-Drug Resistant Organisms: None Reported Past Surgical History: Hernia Repair, Tonsillectomy Additional Past Surgical History / Comment(s): 1979 Lt Testicle, lymph nodes removed along spine. Right Inguinal Hernia Repair x3 with mesh. has a power port. Hemorrhoidectomy (2011), Colonoscopy (Jan 2015), Titanium Stent in Pancreas (02/2015 @ [place]), Restent in 01/2016 ([facility])and in 2017 . ERCP'S. Power Port. duodenal stent for obstruction not malignant Past Anesthesia/Blood Transfusion Reactions: Previous Problems w/ Anesthesia Additional Past Anesthesia/Blood Transfusion Reaction / Comm: DIFFICULTY URINATING W/ HERNIA, HEMORRHOID SURGERIES. Past Psychological History: No Psychological Hx Reported Additional Psychological History / Comment(s): Pt resides with his spouse and son. There is a cat in the household. Pt is independent. 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 He lives at home with his and son. There is a cat in the home. No recent travel or service. Past Drug Use History: None Reported Additional Drug Use History / Comment(s): . - Past Family History Mother Family Medical History: Cancer Additional Family Medical History / Comment(s): Cancer x 3, lived until age 89. Sister(s) Family Medical History: Cancer Additional Family Medical History / Comment(s): Breast cancer. Brother(s) Family Medical History: Cancer Father Family Medical History: Cancer Additional Family Medical History / Comment(s): Colon/bladder cancer x 3, at 94 Medications and Allergies Home Medications Medication Instructions Recorded Confirmed Type Fluticasone Nasal [place] [Flonase 2 spray EA NOSTRIL DAILY 05/23/16 05/24/18 History Nasal [place]] Ursodiol 300 mg PO BID 03/16/17 05/24/18 History Levothyroxine Sodium [Synthroid] 100 mcg PO DAILY 06/01/17 05/24/18 History Acetaminophen [Tylenol Extra 500 - 1,000 mg PO Q6H PRN 11/17/17 05/24/18 History Strength] Apixaban [Eliquis] 5 mg PO BID 11/17/17 05/24/18 History Nystatin 100,000 Unit/ml Susp 500,000 unit PO QID 01/16/18 05/24/18 History [Mycostatin Oral Susp] guaiFENesin [Mucinex] 600 mg PO DAILY PRN 01/16/18 05/24/18 History Pantoprazole Sodium [Protonix] 40 mg PO BID #60 tablet. 02/07/18 05/24/18 Rx Docusate [Colace] 100 mg PO BID 05/08/18 05/24/18 History Megestrol Acetate [Megace] 800 mg PO DAILY 05/08/18 05/24/18 History Omeprazole 20 mg PO DAILY 05/08/18 05/24/18 History Polyethylene Glycol 3350 [Miralax] 17 gm PO DAILY PRN 05/08/18 05/24/18 History Guaifen/Dextromethorphan/PE 20 ml PO BID 05/24/18 05/24/18 History [Mucinex Fast-Max Congest-Cough] Allergies Allergy/AdvReac Type Severity Reaction Status Date / Time morphine AdvReac BRADYCARDIC Verified 05/24/18 13:47 Physical Exam Vitals: Vital Signs Temp Pulse Pulse Resp BP BP Pulse Ox 05/25/18 11:26 97.8 F 68 16 144/88 98 05/25/18 05:26 98.5 F 71 18 145/79 96 05/24/18 22:40 18 05/24/18 21:15 98.4 F 72 18 124/75 98 05/24/18 21:06 98.1 F 78 18 112/78 98 05/24/18 18:00 76 20 100/76 97 05/24/18 17:32 98.1 F 80 18 113/76 100 Intake and Output 05/25/18 05/25/18 05/25/18 06:59 14:59 22:59 Intake Total 590 800 Balance 590 800 Intake: Intake, IV Titration 800 Amount Sodium Chloride 0.9% 1, 800 000 ml @ 150 mls/hr IV . Q6H40M [facility] Rx#:[id number] Oral 590 Other: # Voids 3 # Bowel Movements 1 - Constitutional General appearance: average body habitus, cooperative, no acute distress - EENT Eyes: anicteric sclerae, EOMI ENT: hearing grossly normal, normal oropharynx - Neck Neck: no lymphadenopathy - Respiratory Respiratory: bilateral: CTA - Cardiovascular Rhythm: regular Heart sounds: normal: S1, S2 leg Peripheral Edema: bilateral: None - Gastrointestinal General gastrointestinal: no absent bowel sounds, no decreased bowel sounds, no distended, no hepatomegaly, no hyperactive bowel sounds, normal bowel sounds, no organomegaly, no rigid, no scaphoid, soft, no splenomegaly, no tenderness, no umbilical hernia, no ventral hernia - Integumentary Integumentary: normal, normal turgor - Neurologic Neurologic: CNII-XII intact - Musculoskeletal Musculoskeletal: generalized weakness, strength equal bilaterally - Psychiatric Psychiatric: A&O x's 3, appropriate affect, intact judgment & insight Results CBC & Chem 7: 05/25/18 11:09 05/25/18 11:09 Labs: Abnormal Lab Results - Last 24 Hours (Table) 05/24/18 05/25/18 05/25/18 Range/Units 22:30 11:09 11:09 RBC 2.51 L (4.30-5.90) m/uL Hgb 8.6 L D (13.0-17.5) gm/dL Hct 25.7 L (39.0-53.0) % MCV 102.5 H (80.0-100.0) fL RDW 18.3 H (11.5-15.5) % Lymphocytes # 0.4 L (1.0-4.8) k/uL Sodium 134 L (137-145) mmol/L Chloride 108 H (98-107) mmol/L Glucose 104 H (74-99) mg/dL Urine Protein 1+ H (Negative) Calcium Oxalate Crystal Moderate H (None) /hpf Urine Bacteria Rare H (None) /hpf Hyaline Casts 14 H (0-2) /lpf Urine Mucus Many H (None) /hpf Microbiology - Last 24 Hours (Table) 05/24/18 22:30 Urine Culture - Preliminary Urine,Clean Catch Chest x-ray: report reviewed Assessment and Plan (1) Febrile illness, acute Narrative/Plan: Last fever was yesterday, Influenza negative, CXR showing left basilar opacity, urine and blood cultures pending, empiric abx ordered. WBC and ANC are normal. Current Visit: Yes Status: Acute Priority: High Code(s): R50.9 - FEVER, UNSPECIFIED SNOMED Code(s): 498240855 (2) Pancreatic cancer Narrative/Plan: S/P cycle 18 of liposomal irinotecan and 5FU 1 week ago on Wednesday, due next Wednesday. Discussed with pt pt counts are currently stable and at his baseline. Once cultures finalized that will determine duration of antibiotic therapy and pt will not get chemo until completion of abx. All questions answered to the best of our ability Current Visit: Yes Status: Chronic Priority: Medium Code(s): C25.9 - MALIGNANT NEOPLASM OF PANCREAS, UNSPECIFIED SNOMED Code(s): 649818847 (3) Macrocytic anemia Narrative/Plan: Due to treatment. Pt Hgb baseline is between 8-9, 8.9 in office yesterday. No acute intervention. Transfuse for Hgb<7 or if symptomatic Current Visit: Yes Status: Chronic Priority: Medium Code(s): D53.9 - NUTRITIONAL ANEMIA, UNSPECIFIED SNOMED Code(s): 50397755 Plan: Attests: I have performed H&P and developed impression and plan of care of patient, discussed with dictator. I agree with dictated note, documented as a scribe.
--- NOTE | 2018-05-25 17:02 | PN ---
PROGRESS NOTE DATE OF SERVICE: 05/25/2018 This 67-year-old gentleman who was admitted with fever and possible sepsis also has a history of a pancreatic cancer (ampulla of Vater), stage IV. Patient is on chemotherapy. Patient had leukopenia and possibly features of sepsis. Left lower pneumonia was suspected also. Patient is on broad-spectrum IV antibiotics. Patient also has been seen by multiple consultants, including Infectious Disease. Past medical history reviewed. REVIEW OF SYSTEMS: CARDIOVASCULAR SYSTEM: No angina, palpitations. RESPIRATORY SYSTEM: No cough, hemoptysis. GI: As mentioned earlier. : No dysuria or retention. NERVOUS SYSTEM: No numbness, weakness. CURRENT MEDICATIONS: 1. Tylenol q.6 p.r.n. 2. Xanax 0.25 t.i.d. 3. Eliquis 5 mg b.i.d. 4. Cefepime 2 grams IV q.8. 5. Mycelex. 6. Colace. 7. Flonase. 8. Mucinex. 9. Dilaudid q.4 p.r.n. 10.Synthroid 100 mcg p.o. daily. 11.Megace. 12.Vancomycin. 13.Protonix. 14.MiraLAX. 15.Restoril. 16.Actigall. 17.Vancomycin. PHYSICAL EXAMINATION: Patient is alert, oriented x3. Pulse 68, blood pressure 144/88, respiration 16, temperature 97.8, pulse ox 98% on room air. HEENT: Conjunctivae normal. NECK: No jugular venous distention. CARDIOVASCULAR SYSTEM: S1, S2 muffled. RESPIRATORY SYSTEM: Breath sounds diminished at the bases. Scattered rhonchi and crackles. ABDOMEN: Soft, non-tender. No mass palpable. LEGS: No edema. No swelling. NERVOUS SYSTEM: Higher functions as mentioned earlier. Moves all 4 limbs. No focal motor or sensory deficit. LYMPHATICS: No lymph node palpable in neck, axillae or groin. SKIN: No ulcer, rash, bleeding. JOINTS: No active deforming arthropathy. LABS: WBC 12.1, hemoglobin 8.6, MCV 102.5, sodium 134, and chloride is 108. UA noted. Influenza negative. ASSESSMENT: 1. Fever with possible leukopenic sepsis. 2. Acute left lower pneumonia, possibly gram-negative. 3. Leukopenia. 4. Hyponatremia. 5. Elevated lactic acid secondary to sepsis. 6. 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 7. History of testicular cancer. 8. History of gastroesophageal reflux disease. 9. History of pulmonary embolism. 10.History of hypothyroidism. 11.Sepsis history. 12.History of cataracts. 13.History of tonsillectomy. 14.History of hernia repair. RECOMMENDATIONS AND DISCUSSION: I recommend to continue current medications, continue with the monitoring, symptomatic treatment. Otherwise at this time we will continue with broad-spectrum IV antibiotics. Repeat labs. White count is improving at this time. Otherwise, sodium is 134. Continue to monitor. Closely follow with multiple consultants. Guarded prognosis. Further recommendations to follow. MMODL / IJN: [id number] /
[2018-05-25] MEDS: HYDROmorphone 0.5 MG/0.5 ML SYRINGE IVP PRN (21:31)
[2018-05-25] MEDS: ACETAMINOPHEN TAB 500 MG TAB PO PRN (21:32)
[2018-05-25] MEDS: guaiFENesin-DM 600/30MG 1 EACH TAB.ER.12H PO PRN (22:53)
--- NOTE | 2018-05-25 23:45 | P.CON ---
Consult Note - . Consult date: 05/25/18 Assessment/Plan:: This is a 67-year-old male patient well known to ID service as he has had previous bouts of E. coli sepsis related to obstruction of his biliary track. 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 There is evidence of bilateral pulmonary emboli without much symptom is being treated with Eliquis. Patient gives history of influenza A with admission 05/09/2018. Patient states he recovered from the influenza but then developed a cough with thick white sputum production that has been going on for about one week. He also had 1 documented fever at home and came into [facility] emergency center for evaluation. He was febrile with a temperature 102.8, white count 1.5, creatinine 0.93. Lactic acid 3.5 and he is status post 3 L of IV fluid. Albumin 2.6. Influenza negative. Urinalysis was cloudy with calcium oxalate crystals, rare bacteria and hyaline casts. Chest x-ray showed reveals some focal peripheral left basilar Lyle that he could represent atelectasis or elevated a infiltrate. There is a consult in place for Dr. Oliver. Patient is currently on cephapirin and vancomycin. Patient does have oral thrush and his is bringing and nystatin from home. Report to left upper chest wall is functioning well. Please see the consult note is dictated by nurse practitioner Mina Chinyere Rutledge. 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 However recently was at Hospital where he was treated for his influenza a infection was a relatively well however he now presents with the onset of sudden fever 102.8 relative leukopenia and feeling very poorly. Was found evidence of a new left lower lobe pneumonia related to his recent influenza. His leukopenia is 30 improving. His liver enzymes until a bilirubin are normal. Influenza A at this time is negative and cultures are pending. He is currently being treated with cefepime and vancomycin which are appropriate until we have further data. Fortunately he is feeling better already. The mild thrush with a bring in his nystatin from home which he tolerates well. Cultures may further direct antibiotic therapy. There still wondering if she will start his chemotherapy and Wednesday. Depending on how he is doing will determine if oncology will allow this. I agree with evaluation, assessment and plan as dictated by nurse practitioner Mrs. Chinyere Rutledge.
[2018-05-26] MEDS: CEFEPIME 2 GM in SODIUM CHLORIDE 0.9% 100 ML IVPB SCH ×3 (00:59→16:35)
[2018-05-26] MEDS: CLOTRIMAZOLE TROCHE 10 MG TROCHE PO SCH ×5 (01:00→19:56)
[2018-05-26] MEDS: SODIUM CHLORIDE 0.9% 1,000 ML IV SCH ×2 (02:45→09:52)
[2018-05-26] MEDS: LEVOTHYROXINE 100 MCG TAB PO SCH (05:53)
[2018-05-26 07:16] LABS: Anisocytosis Slight; Basophils % (A) 1 %; Eosinophils % (A) 1 %; HCT 24.8 % (39.0-53.0); HGB 7.9 gm/dL (13.0-17.5); Hypochromasia Slight; Lymphocytes # (A) 0.3 k/uL (1.0-4.8); Lymphocytes % (A) 13 %; MCH 32.5 pg (25.0-35.0); MCHC 31.9 g/dL (31.0-37.0); Macrocytosis Moderate; Mean Platelet Volume 7.6; Monocytes # (A) 0.1 k/uL (0-1.0); Monocytes % (A) 5 %; Neutrophils # (A) 1.9 k/uL (1.3-7.7); Neutrophils % (A) 77 %; Platelet Count 290 k/uL (150-450); Poikilocytosis Slight; RBC 2.43 m/uL (4.30-5.90); RDW 18.4 % (11.5-15.5); WBC 2.4 k/uL (3.8-10.6)
[2018-05-26 07:44] LABS: Anion Gap 4 mmol/L; Blood Urea Nitrogen 11 mg/dL (9-20); Carbon Dioxide 21 mmol/L (22-30); Chloride 109 mmol/L (98-107); Glucose 124 mg/dL (74-99); Potassium 4.2 mmol/L (3.5-5.1); Sodium 134 mmol/L (137-145)
[2018-05-26] MEDS: DOCUSATE 100 MG CAP PO SCH ×2 (08:03→20:11)
[2018-05-26] MEDS: APIXABAN 5 MG TAB PO SCH ×2 (08:03→20:11)
[2018-05-26] MEDS: MEGESTROL 400 MG/10 ML CUP PO SCH (08:03)
[2018-05-26] MEDS: URSODIOL 300 MG CAP PO SCH ×2 (08:03→20:11)
[2018-05-26] MEDS: PANTOPRAZOLE 40 MG TABLET PO SCH (08:03)
[2018-05-26] MEDS: FLUTICASONE 50MCG/SPRAY NASAL 16GM EA NOSTRIL SCH (08:05)
[2018-05-26] MEDS ORDERED: VANCOMYCIN TROUGH DUE 1 EACH MISC MISCELLANE ONE (10:00)
[2018-05-26] MEDS: VANCOMYCIN 1,500 MG in SODIUM CHLORIDE 0.9% 250 ML IVPB SCH (11:04)
[2018-05-26] MEDS: MAG HYDROX/AL HYDROX/SIMETH 30 ML, LIDOCAINE VISCOUS 30 ML, diphenhydrAMINE ELIXIR 75 M... PO SCH ×12 (14:57→22:03)
[2018-05-26] MEDS: VANCOMYCIN 1,250 MG in SODIUM CHLORIDE 0.9% 250 ML IVPB SCH (18:01)
[2018-05-26] MEDS: ACETAMINOPHEN TAB 500 MG TAB PO PRN (20:15)
[2018-05-26] MEDS: HYDROmorphone 0.5 MG/0.5 ML SYRINGE IVP PRN (22:04)
--- NOTE | 2018-05-26 22:15 | PN ---
PROGRESS NOTE DATE OF SERVICE: 05/26/2018 This 67-year-old gentleman admitted with possible sepsis on broad-spectrum IV antibiotics. Patient also suspected to have some pneumonia too. No chest pain. No palpitations. No fever. Infectious Disease and Hematology/Oncology following the patient closely. EXAM: Alert and oriented times three. Pulse 71, blood pressure 130/80, respiration 18, temperature 97.2, pulse ox 98% on room air. HEENT: Conjunctivae normal. Oral mucosa moist. Neck is no jugular venous distention. No carotid bruit. No lymph node enlargement. Cardiovascular: S1, S2 muffled. RESPIRATORY: Breath sounds diminished in the bases. A few scattered rhonchi and crackles. Abdomen is soft. NERVOUS SYSTEM: No focal deficits. LAB STUDIES: WBC 2.5, hemoglobin 7.9, sodium 134. UA noted. Cultures are negative so far. ASSESSMENT: 1. Fever with possibly leukopenic and sepsis. 2. Acute left lower lobe pneumonia possibly gram-negative. 3. Leukopenia. 4. Hyponatremia. 5. Elevated lactic acid secondary to sepsis. 6. History of pancreatic duct cancer with Ampulla of Vater stage IV on chemo. 7. History of testicular cancer. 8. History of gastroesophageal reflux disease. 9. History of pulmonary embolism. 10.History of hypothyroidism. 11.Sepsis history. 12.History of cataracts. 13.History of tonsillectomy. 14.History of hernia repair. RECOMMENDATIONS AND DISCUSSION: Recommend to continue current medications, continue with monitoring, symptomatic treatment. Continue the antibiotics. Await cultures. Otherwise, the patient has some mild leukopenia. We will continue to monitor. Closely follow with Infectious Disease and Hematology/Oncology. Further recommendations to follow. See orders for further details. MMODL / IJN: [id number] /
--- NOTE | 2018-05-26 23:54 | P.PN ---
Subjective Progress Note Date: 05/26/18 Principal diagnosis: Fever, Metastatic pancreatic cancer In f/u pt is ambulating, mild oral irritation, appetite is fair, no nausea or vomiting, abd pain, had a BM today, no diarrhea or bleeding Objective - Vital Signs Vital signs: Vital Signs Temp 98.6 F 05/26/18 21:00 Pulse 75 05/26/18 21:00 Resp 16 05/26/18 21:00 BP 137/87 05/26/18 21:00 Pulse Ox 97 05/26/18 21:00 Intake & Output 05/26/18 05/26/18 05/27/18 06:59 18:59 06:59 Intake Total 1400 1145 Balance 1400 1145 Intake: Intake, IV Titration 850 Amount Sodium Chloride 0.9% 1, 600 000 ml @ 150 mls/hr IV . Q6H40M [facility] Rx#:[id number] Vancomycin 1,500 mg In 250 Sodium Chloride 0.9% 250 ml @ 125 mls/hr IVPB Q12H [facility] Rx#:[id number] Oral 550 1145 Other: Voiding Method Toilet # Voids 1 6 # Bowel Movements 1 - Constitutional General appearance: Present: average body habitus, cooperative, no acute distress - EENT EENT Comment(s): mild mucositis, small ulcerations on sides of tongue Eyes: Present: anicteric sclerae, EOMI ENT: Present: hearing grossly normal - Respiratory Respiratory: bilateral: CTA - Cardiovascular Rhythm: regular Heart sounds: normal: S1, S2 Abnormal Heart Sounds: Absent: systolic murmur, diastolic murmur, rub, S3 Gallop, S4 Gallop, click, other - Peripheral edema leg Peripheral Edema: bilateral: None - Gastrointestinal General gastrointestinal: Present: normal bowel sounds, soft. Absent: absent bowel sounds, decreased bowel sounds, distended, hepatomegaly, hyperactive bowel sounds, organomegaly, rigid, scaphoid, splenomegaly, tenderness, umbilical hernia, ventral hernia - Neurologic Neurologic: Present: CNII-XII intact - Musculoskeletal Musculoskeletal: Present: strength equal bilaterally - Psychiatric Psychiatric: Present: A&O x's 3, appropriate affect, intact judgment & insight - Labs CBC & Chem 7: 05/26/18 06:50 05/26/18 06:50 Labs: Abnormal Lab Results - Last 24 Hours (Table) 05/26/18 05/26/18 Range/Units 06:50 06:50 WBC 2.4 L (3.8-10.6) k/uL RBC 2.43 L (4.30-5.90) m/uL Hgb 7.9 L (13.0-17.5) gm/dL Hct 24.8 L (39.0-53.0) % MCV 102.0 H (80.0-100.0) fL RDW 18.4 H (11.5-15.5) % Lymphocytes # 0.3 L (1.0-4.8) k/uL Sodium 134 L (137-145) mmol/L Chloride 109 H (98-107) mmol/L Carbon Dioxide 21 L (22-30) mmol/L Glucose 124 H (74-99) mg/dL Calcium 8.0 L (8.4-10.2) mg/dL Microbiology - Last 24 Hours (Table) 05/24/18 14:03 Blood Culture - Preliminary Blood No Growth after 48 hours 05/24/18 22:30 Urine Culture - Final Urine,Clean Catch Assessment and Plan (1) Febrile illness, acute Narrative/Plan: Cultures negative at 24 hours, no fever today, WBC low but ANC normal at 1.9. Abx cont per ID Current Visit: Yes Status: Acute Priority: High Code(s): R50.9 - FEVER, UNSPECIFIED SNOMED Code(s): 688406648 (2) Pancreatic cancer Narrative/Plan: S/P cycle 18 of liposomal irinotecan and 5FU 1 week ago on Wednesday, due next Wednesday. Discussed with pt pt counts are currently stable and at his baseline. Once cultures finalized that will determine duration of antibiotic therapy and pt will not get chemo until completion of abx. Current Visit: Yes Status: Chronic Priority: Medium Code(s): C25.9 - MALIGNANT NEOPLASM OF PANCREAS, UNSPECIFIED SNOMED Code(s): 314151404 (3) Macrocytic anemia Narrative/Plan: Due to treatment. Pt Hgb baseline is between 8-9, 8.9 in office yesterday. No acute intervention. Transfuse for Hgb<7 or if symptomatic Current Visit: Yes Status: Chronic Priority: Medium Code(s): D53.9 - NUTRITIONAL ANEMIA, UNSPECIFIED SNOMED Code(s): 13065064 (4) Mucositis (ulcerative) due to antineoplastic therapy Narrative/Plan: Cools solution ordered Current Visit: Yes Status: Acute Priority: Medium Code(s): K12.31 - ORAL MUCOSITIS (ULCERATIVE) DUE TO ANTINEOPLASTIC THERAPY SNOMED Code(s): 341628654
[2018-05-27] MEDS: CLOTRIMAZOLE TROCHE 10 MG TROCHE PO SCH ×7 (01:19→23:41)
[2018-05-27] MEDS: CEFEPIME 2 GM in SODIUM CHLORIDE 0.9% 100 ML IVPB SCH ×4 (01:54→23:39)
[2018-05-27] MEDS: VANCOMYCIN 1,250 MG in SODIUM CHLORIDE 0.9% 250 ML IVPB SCH ×3 (01:57→18:19)
[2018-05-27] MEDS: LEVOTHYROXINE 100 MCG TAB PO SCH (07:20)
[2018-05-27] MEDS: PANTOPRAZOLE 40 MG TABLET PO SCH (07:49)
[2018-05-27 07:54] LABS: Anisocytosis Slight; HCT 26.2 % (39.0-53.0); HGB 8.7 gm/dL (13.0-17.5); MCH 33.6 pg (25.0-35.0); MCHC 33.2 g/dL (31.0-37.0); MCV 101.1 fL (80.0-100.0); Macrocytosis Moderate; Mean Platelet Volume 7.1; Platelet Count 343 k/uL (150-450); Poikilocytosis Slight; RBC 2.59 m/uL (4.30-5.90); RDW 18.7 % (11.5-15.5); WBC 2.1 k/uL (3.8-10.6)
[2018-05-27 07:58] LABS: Anion Gap 4 mmol/L; Blood Urea Nitrogen 11 mg/dL (9-20); Calcium 8.5 mg/dL (8.4-10.2); Carbon Dioxide 25 mmol/L (22-30); Chloride 106 mmol/L (98-107); Glucose 71 mg/dL (74-99); Sodium 135 mmol/L (137-145)
[2018-05-27] MEDS: APIXABAN 5 MG TAB PO SCH ×2 (09:18→20:45)
[2018-05-27] MEDS: URSODIOL 300 MG CAP PO SCH ×2 (09:18→20:46)
[2018-05-27] MEDS: MEGESTROL 400 MG/10 ML CUP PO SCH (09:18)
[2018-05-27] MEDS: DOCUSATE 100 MG CAP PO SCH ×2 (09:18→20:45)
[2018-05-27] MEDS: FLUTICASONE 50MCG/SPRAY NASAL 16GM EA NOSTRIL SCH (09:19)
[2018-05-27] MEDS: MAG HYDROX/AL HYDROX/SIMETH 30 ML, LIDOCAINE VISCOUS 30 ML, diphenhydrAMINE ELIXIR 75 M... PO SCH ×16 (09:29→22:30)
[2018-05-27 09:58] LABS: Basophils # (M) 0.02 k/uL (0-0.2); Eosinophils # (M) 0.02 k/uL (0-0.7); Lymphocytes # (M) 0.46 k/uL (1.0-4.8); Monocytes # (M) 0.29 k/uL (0-1.0); Neutrophils # (M) 1.34 k/uL (1.3-7.7); Neutrophils % (M) 64 %; Nucleated Red Blood Cells 0 /100 WBC (0-0); Total Cells Counted 200
[2018-05-27 09:59] LABS: Polychromasia Present
[2018-05-27] MEDS: ACETAMINOPHEN TAB 500 MG TAB PO PRN (12:59)
[2018-05-27] MEDS: HYDROmorphone 0.5 MG/0.5 ML SYRINGE IVP PRN (20:46)
[2018-05-27] MEDS ORDERED: BUTALB/APAP/CAFF 50-325-40MG TAB PO PRN (23:39)
--- NOTE | 2018-05-27 23:39 | P.PN ---
Subjective Progress Note Date: 05/27/18 This is a 67-year-old male patient well known to ID service as he has had previous bouts of E. coli sepsis related to obstruction of his biliary track. 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 There is evidence of bilateral pulmonary emboli without much symptom is being treated with Eliquis. Patient gives history of influenza A with admission 05/09/2018. Patient states he recovered from the influenza but then developed a cough with thick white sputum production that has been going on for about one week. He also had 1 documented fever at home and came into [facility] emergency center for evaluation. He was febrile with a temperature 102.8, white count 1.5, creatinine 0.93. Lactic acid 3.5 and he is status post 3 L of IV fluid. Albumin 2.6. Influenza negative. Urinalysis was cloudy with calcium oxalate crystals, rare bacteria and hyaline casts. Chest x-ray showed reveals some focal peripheral left basilar Lyle that he could represent atelectasis or elevated a infiltrate. There is a consult in place for Dr. Oliver. Patient is currently on cephapirin and vancomycin. Patient does have oral thrush and his is bringing and nystatin from home. Report to left upper chest wall is functioning well. 05/27/2018 patient is more comfortable today. However is having some headaches that are somewhat new. Responded to Dilaudid but recurring after. Temperature 99.4 no chills or rigors. Breathing is improved. Trending to improvement. Objective - Vital Signs Vital signs: Vital Signs Temp 98.6 F 05/27/18 21:00 Pulse 78 05/27/18 21:00 Resp 18 05/27/18 23:05 BP 148/87 05/27/18 21:00 Pulse Ox 98 05/27/18 21:00 Intake & Output 05/27/18 05/27/18 05/28/18 06:59 18:59 06:59 Intake Total 4048 258 3797 Balance 1908 609 8572 Intake: Intake, IV Titration 350 350 Amount Cefepime 2 gm In Sodium 100 100 Chloride 0.9% 100 ml @ 200 mls/hr IVPB Q8HR [facility] Rx#:[id number] Vancomycin 1,250 mg In 250 250 Sodium Chloride 0.9% 250 ml @ 125 mls/hr IVPB Q8H [facility] Rx#:[id number] Oral 1395 1070 Other: Voiding Method Toilet Toilet # Voids 2 2 # Bowel Movements 1 - Exam Gen: This is a 67-year-old male. He is resting in bed appears to be comfortable and in no acute distress. HEENT: Head is atraumatic, normocephalic. Pupils equal, round. Sclerae is anicteric. Oral mucous membranes are moist. Positive thrush. NECK: Supple. No JVD. No lymphadenopathy. No thyromegaly. LUNGS: Symmetrical air entry is noted, there is evidence of minimally diminished breath sounds in the left base evidence of some crackles and egophony also at the left base. No dullness HEART: Regular rate and rhythm. No murmur. Port to the left upper anterior chest with no surrounding erythema or tenderness. ABDOMEN: Soft. Bowel sounds are present. No masses. No tenderness. EXTREMITIES: No pedal edema. No calf tenderness. Dorsalis pedis +2 bilaterally. NEUROLOGICAL: Patient is awake, alert and oriented x3 - Labs CBC & Chem 7: 05/27/18 07:20 05/27/18 07:20 Labs: Abnormal Lab Results - Last 24 Hours (Table) 05/27/18 05/27/18 Range/Units 07:20 07:20 WBC 2.1 L (3.8-10.6) k/uL RBC 2.59 L (4.30-5.90) m/uL Hgb 8.7 L (13.0-17.5) gm/dL Hct 26.2 L (39.0-53.0) % MCV 101.1 H (80.0-100.0) fL RDW 18.7 H (11.5-15.5) % Lymphocytes # (Manual) 0.46 L (1.0-4.8) k/uL Sodium 135 L (137-145) mmol/L Glucose 71 L (74-99) mg/dL Microbiology - Last 24 Hours (Table) 05/24/18 14:03 Blood Culture - Preliminary Blood No Growth after 72 hours Laboratory Results WBC 2.1 k/uL (3.8-10.6) L 05/27/18 07:20 RBC 2.59 m/uL (4.30-5.90) L 05/27/18 07:20 Hgb 8.7 gm/dL (13.0-17.5) L 05/27/18 07:20 Hct 26.2 % (39.0-53.0) L 05/27/18 07:20 MCV 101.1 fL (80.0-100.0) H 05/27/18 07:20 MCH 33.6 pg (25.0-35.0) 05/27/18 07:20 MCHC 33.2 g/dL (31.0-37.0) 05/27/18 07:20 RDW 18.7 % (11.5-15.5) H 05/27/18 07:20 Plt Count 343 k/uL (150-450) 05/27/18 07:20 Neutrophils % 77 % 05/26/18 06:50 Neutrophils % (Manual) 64 % 05/27/18 07:20 Lymphocytes % 13 % 05/26/18 06:50 Lymphocytes % (Manual) 22 % 05/27/18 07:20 Monocytes % 5 % 05/26/18 06:50 Monocytes % (Manual) 14 % 05/27/18 07:20 Eosinophils % 1 % 05/26/18 06:50 Eosinophils % (Manual) 1 % 05/27/18 07:20 Basophils % 1 % 05/26/18 06:50 Basophils % (Manual) 1 % 05/27/18 07:20 Neutrophils # 1.9 k/uL (1.3-7.7) 05/26/18 06:50 Neutrophils # (Manual) 1.34 k/uL (1.3-7.7) 05/27/18 07:20 Lymphocytes # 0.3 k/uL (1.0-4.8) L 05/26/18 06:50 Lymphocytes # (Manual) 0.46 k/uL (1.0-4.8) L 05/27/18 07:20 Monocytes # 0.1 k/uL (0-1.0) 05/26/18 06:50 Monocytes # (Manual) 0.29 k/uL (0-1.0) 05/27/18 07:20 Eosinophils # 0.0 k/uL (0-0.7) 05/26/18 06:50 Eosinophils # (Manual) 0.02 k/uL (0-0.7) 05/27/18 07:20 Basophils # 0.0 k/uL (0-0.2) 05/26/18 06:50 Basophils # (Manual) 0.02 k/uL (0-0.2) 05/27/18 07:20 Nucleated RBCs 0 /100 WBC (0-0) 05/27/18 07:20 Manual Slide Review Performed 05/27/18 07:20 Polychromasia Present 05/27/18 07:20 Hypochromasia Slight 05/26/18 06:50 Poikilocytosis Slight 05/27/18 07:20 Anisocytosis Slight 05/27/18 07:20 Macrocytosis Moderate 05/27/18 07:20 Sodium 135 mmol/L (137-145) L 05/27/18 07:20 Potassium 4.0 mmol/L (3.5-5.1) 05/27/18 07:20 Chloride 106 mmol/L (98-107) 05/27/18 07:20 Carbon Dioxide 25 mmol/L (22-30) 05/27/18 07:20 Anion Gap 4 mmol/L 05/27/18 07:20 BUN 11 mg/dL (9-20) 05/27/18 07:20 Creatinine 0.69 mg/dL (0.66-1.25) 05/27/18 07:20 Est GFR (CKD-EPI)AfAm >90 (>60 ml/min/1.73 sqM) 05/27/18 07:20 Est GFR (CKD-EPI)NonAf >90 (>60 ml/min/1.73 sqM) 05/27/18 07:20 Glucose 71 mg/dL (74-99) L 05/27/18 07:20 Lactic Ac Sepsis Rflx Y 05/24/18 14:48 Plasma Lactic Acid Paddy 1.1 mmol/L (0.7-2.0) 05/24/18 18:20 Calcium 8.5 mg/dL (8.4-10.2) 05/27/18 07:20 Total Bilirubin 0.6 mg/dL (0.2-1.3) 05/24/18 14:03 AST 16 U/L (17-59) L 05/24/18 14:03 ALT 19 U/L (21-72) L 05/24/18 14:03 Alkaline Phosphatase 58 U/L (38-126) 05/24/18 14:03 Total Protein 4.6 g/dL (6.3-8.2) L 05/24/18 14:03 Albumin 2.6 g/dL (3.5-5.0) L 05/24/18 14:03 Urine Color Yellow 05/24/18 22:30 Urine Appearance Cloudy (Clear) 05/24/18 22:30 Urine pH 6.0 (5.0-8.0) 05/24/18 22:30 Ur Specific [place] 1.035 (1.001-1.035) 05/24/18 22:30 Urine Protein 1+ (Negative) H 05/24/18 22:30 Urine Glucose (UA) Negative (Negative) 05/24/18 22:30 Urine Ketones Negative (Negative) 05/24/18 22:30 Urine Blood Negative (Negative) 05/24/18 22:30 Urine Nitrite Negative (Negative) 05/24/18 22:30 Urine Bilirubin Negative (Negative) 05/24/18 22:30 Urine Urobilinogen 4.0 mg/dL (<2.0) 05/24/18 22:30 Ur Leukocyte Esterase Negative (Negative) 05/24/18 22:30 Urine RBC 1 /hpf (0-5) 05/24/18 22:30 Urine WBC <1 /hpf (0-5) 05/24/18 22:30 Ur Squamous Epith Cells 1 /hpf (0-4) 05/24/18 22:30 Calcium Oxalate Crystal Moderate /hpf (None) H 05/24/18 22:30 Urine Bacteria Rare /hpf (None) H 05/24/18 22:30 Hyaline Casts 14 /lpf (0-2) H 05/24/18 22:30 Urine Mucus Many /hpf (None) H 05/24/18 22:30 Vancomycin Trough 14.4 ug/mL 05/26/18 06:50 Influenza Type A RNA Not Detected (Not Detectd) 05/24/18 14:03 Influenza Type B (PCR) Not Detected (Not Detectd) 05/24/18 14:03 Microbiology 05/24/18 14:03 Blood Blood Culture - Preliminary No Growth after 72 hours 04/02/19 22:30 Urine,Clean Catch Urine Culture - Final Assessment and Plan (1) Left lower lobe pneumonia Narrative/Plan: Pleasant 67-year-old male who has the 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 However recently was at Hospital where he was treated for his influenza a infection was a relatively well however he now presents with the onset of sudden fever 102.8 relative leukopenia and feeling very poorly. Was found evidence of a new left lower lobe pneumonia related to his recent influenza. His leukopenia is 30 i mproving. His liver enzymes until a bilirubin are normal. Influenza A at this time is negative and cultures are pending. He is currently being treated with cefepime and vancomycin which are appropriate until we have further data. Fortunately he is feeling better already. The mild thrush with a bring in his nystatin from home which he tolerates well. Cultures may further direct antibiotic therapy. There still wondering if she will start his chemotherapy and Wednesday. 05/27/2018 patient feels better today but is having some headaches that are somewhat unusual for him. His breathing and shortness of breath improved. Fever has definitely improved down to 99.4 today. Relative leukopenia is occurring but no absolute neutropenia. We'll continue on current antibiotic therapy with vancomycin and cefepime. Is having some headache and some Fioricet as requested which may be helpful. Cultures are process will further help direct the course of antibiotic therapy. Chemotherapy on hold for a week. Current Visit: Yes Status: Acute Code(s): J18.1 - LOBAR PNEUMONIA, UNSPECIFIED ORGANISM SNOMED Code(s): 727931027
[2018-05-28] MEDS: VANCOMYCIN 1,250 MG in SODIUM CHLORIDE 0.9% 250 ML IVPB SCH ×3 (01:57→17:33)
[2018-05-28] MEDS: CLOTRIMAZOLE TROCHE 10 MG TROCHE PO SCH ×4 (04:29→20:04)
[2018-05-28] MEDS: LEVOTHYROXINE 100 MCG TAB PO SCH (05:11)
[2018-05-28] MEDS: DOCUSATE 100 MG CAP PO SCH ×2 (08:11→20:13)
[2018-05-28] MEDS: CEFEPIME 2 GM in SODIUM CHLORIDE 0.9% 100 ML IVPB SCH ×2 (08:11→16:11)
[2018-05-28] MEDS: APIXABAN 5 MG TAB PO SCH ×2 (08:11→20:13)
[2018-05-28] MEDS: MAG HYDROX/AL HYDROX/SIMETH 30 ML, LIDOCAINE VISCOUS 30 ML, diphenhydrAMINE ELIXIR 75 M... PO SCH ×16 (08:11→22:09)
[2018-05-28] MEDS: URSODIOL 300 MG CAP PO SCH ×2 (08:11→20:13)
[2018-05-28] MEDS: MEGESTROL 400 MG/10 ML CUP PO SCH (08:11)
[2018-05-28] MEDS: PANTOPRAZOLE 40 MG TABLET PO SCH (08:11)
[2018-05-28] MEDS: FLUTICASONE 50MCG/SPRAY NASAL 16GM EA NOSTRIL SCH (08:12)
[2018-05-28] MEDS ORDERED: VANCOMYCIN TROUGH DUE 1 EACH MISC MISCELLANE ONE ×2 (09:00→17:00)
[2018-05-28] MEDS: guaiFENesin-DM 600/30MG 1 EACH TAB.ER.12H PO PRN (09:26)
--- NOTE | 2018-05-28 09:26 | PN ---
PROGRESS NOTE DATE OF SERVICE: 05/27/2018 . This 67-year-old gentleman with a past medical history of multiple medical problems was admitted with features of sepsis. Patient on broad spectrum IV antibiotics. Patient improving significantly. No chest pain. No palpitations. No fever. Cultures are negative so far. EXAM: Alert and oriented x3. Pulse is 78, blood pressure 148/87, respiration 18, temperature 98.2, pulse ox 98% on room air. HEENT: Conjunctivae normal. Oral mucosa moist. NECK: No jugular venous distention. No lymph node enlargement. CARDIOVASCULAR: S1, S2. RESPIRATORY: Diminished breath sounds at the bases. A few scattered rhonchi. ABDOMEN: Soft, nontender. LEGS: No swelling. NERVOUS SYSTEM: No focal deficits. LAB STUDIES: WBC is 2.9, hemoglobin 8.7, and glucose 71. ASSESSMENT: 1. Fever with possible leukopenic sepsis. 2. Acute left lower lobe pneumonia, possibly gram-negative. 3. Leukopenia. 4. Hyponatremia. 5. Elevated lactic acid secondary to sepsis. 6. History of pancreatic duct cancer with ampulla of Vater stag IV on chemo. 7. History of testicular cancer. 8. History of gastroesophageal reflux disease. 9. History of pulmonary embolus. 10.History hypothyroidism. 11.History of sepsis history. 12.History of cataracts. 13.History of tonsillectomy. 14.History of hernia repair. RECOMMENDATIONS AND DISCUSSION: Recommend to continue current management, continue symptomatic treatment. Continue with antibiotics. Closely follow with infectious Disease. Further recommendations to follow. Increase ambulation. MMODL / IJN: [id number] /
[2018-05-28 09:55] LABS: Anisocytosis Slight; HCT 30.4 % (39.0-53.0); HGB 10.2 gm/dL (13.0-17.5); Hypochromasia Slight; MCH 34.1 pg (25.0-35.0); MCHC 33.4 g/dL (31.0-37.0); MCV 101.9 fL (80.0-100.0); Macrocytosis Moderate; Mean Platelet Volume 7.3; Platelet Count 478 k/uL (150-450); Poikilocytosis Slight; RBC 2.98 m/uL (4.30-5.90); RDW 18.7 % (11.5-15.5)
[2018-05-28 10:10] LABS: Anion Gap 9 mmol/L; Blood Urea Nitrogen 15 mg/dL (9-20); Calcium 8.9 mg/dL (8.4-10.2); Carbon Dioxide 21 mmol/L (22-30); Chloride 105 mmol/L (98-107); Glucose 104 mg/dL (74-99); Potassium 4.2 mmol/L (3.5-5.1); Sodium 135 mmol/L (137-145)
[2018-05-28 11:05] LABS: Eosinophils # (M) 0.03 k/uL (0-0.7); Lymphocytes # (M) 1.11 k/uL (1.0-4.8); Monocytes # (M) 0.45 k/uL (0-1.0); Neutrophils # (M) 1.41 k/uL (1.3-7.7); Neutrophils % (M) 47 %; Nucleated Red Blood Cells 0 /100 WBC (0-0); Total Cells Counted 100
--- NOTE | 2018-05-28 21:59 | PN ---
PROGRESS NOTE DATE OF SERVICE: 05/28/2018. HISTORY: This 67 -year-old gentleman was admitted with fever with possibly neutropenic sepsis. The patient is on IV antibiotics. Pneumonia is suspected. Final culture report is pending at this time. Infectious Disease is following the patient closely. EXAM: Alert, oriented x3. Pulse 83, blood pressure 125/84, respirations 18, temperature 98.7, pulse ox 97% on room air. HEENT: Normal. NECK: No JVD. CARDIOVASCULAR: S1 and S2 muffled. LUNGS: Breath sounds diminished at the bases. No rhonchi, no crackles. ABDOMEN: Soft, nontender. NERVOUS SYSTEM: No focal deficits. LABS: WBC 3, hemoglobin 10.2, sodium 135. ASSESSMENT: 1. Fever with possible leukopenic neutropenic sepsis. 2. Acute left lower lobe pneumonia possibly gram-negative. 3. Leukopenia. 4. Hyponatremia. 5. Elevated lactic acid secondary to sepsis. 6. 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 7. History of testicular cancer,. 8. History of GERD. 9. History of pulmonary embolus. 10.History of hypothyroidism. 11.History of sepsis. 12.History of cataracts. 13.History of tonsillectomy. 14.History of hernia repair. RECOMMENDATIONS: Recommend to continue current medication, continue symptomatic treatment. Otherwise at this time I recommend continue the broad-spectrum IV antibiotics. Await cultures. Increase ambulation. Otherwise, the patient is on apixaban. DVT prophylaxis. Guarded prognosis. Further recommendations to follow. Chemotherapy off for possibly 1 more week. Further recommendations to follow. MMODL / IJN: [id number] /
[2018-05-28] MEDS: VANCOMYCIN 1,000 MG in SODIUM CHLORIDE 0.9% 250 ML IVPB SCH (22:09)
[2018-05-29] MEDS: CEFEPIME 2 GM in SODIUM CHLORIDE 0.9% 100 ML IVPB SCH ×4 (00:17→23:37)
[2018-05-29] MEDS: CLOTRIMAZOLE TROCHE 10 MG TROCHE PO SCH ×6 (00:21→23:25)
[2018-05-29] MEDS: HYDROmorphone 0.5 MG/0.5 ML SYRINGE IVP PRN ×3 (01:00→21:17)
[2018-05-29] MEDS: LEVOTHYROXINE 100 MCG TAB PO SCH (06:07)
[2018-05-29] MEDS: VANCOMYCIN 1,000 MG in SODIUM CHLORIDE 0.9% 250 ML IVPB SCH ×3 (06:07→21:17)
[2018-05-29 06:42] LABS: Anisocytosis Slight; HCT 26.5 % (39.0-53.0); HGB 9.1 gm/dL (13.0-17.5); Hypochromasia Slight; MCH 33.6 pg (25.0-35.0); MCHC 34.2 g/dL (31.0-37.0); Macrocytosis Slight; Mean Platelet Volume 9.3; Platelet Count 349 k/uL (150-450); Poikilocytosis Moderate; RDW 19.5 % (11.5-15.5); WBC 1.9 k/uL (3.8-10.6)
[2018-05-29 06:51] LABS: Anion Gap 7 mmol/L; Blood Urea Nitrogen 15 mg/dL (9-20); Calcium 8.7 mg/dL (8.4-10.2); Carbon Dioxide 25 mmol/L (22-30); Chloride 103 mmol/L (98-107); Glucose 69 mg/dL (74-99); Potassium 4.4 mmol/L (3.5-5.1); Sodium 135 mmol/L (137-145)
[2018-05-29] MEDS: PANTOPRAZOLE 40 MG TABLET PO SCH (08:27)
[2018-05-29] MEDS: MAG HYDROX/AL HYDROX/SIMETH 30 ML, LIDOCAINE VISCOUS 30 ML, diphenhydrAMINE ELIXIR 75 M... PO SCH ×16 (08:27→21:17)
[2018-05-29] MEDS: DOCUSATE 100 MG CAP PO SCH ×2 (08:27→21:17)
[2018-05-29] MEDS: APIXABAN 5 MG TAB PO SCH ×2 (08:27→21:17)
[2018-05-29] MEDS: MEGESTROL 400 MG/10 ML CUP PO SCH (08:28)
[2018-05-29] MEDS: URSODIOL 300 MG CAP PO SCH ×2 (08:28→21:17)
[2018-05-29] MEDS: FLUTICASONE 50MCG/SPRAY NASAL 16GM EA NOSTRIL SCH (08:29)
[2018-05-29] MEDS ORDERED: SALT AND SODA MOUTHWASH 1,000 ML PO PRN (09:00)
[2018-05-29 14:17] LABS: Basophils # (M) 0.02 k/uL (0-0.2); Eosinophils # (M) 0.08 k/uL (0-0.7); Lymphocytes # (M) 0.63 k/uL (1.0-4.8); Metamyelocytes # (M) 0.02 k/uL (0); Metamyelocytes % 1 %; Neutrophils # (M) 0.76 k/uL (1.3-7.7); Neutrophils % (M) 40 %; Nucleated Red Blood Cells 0 /100 WBC (0-0); Total Cells Counted 100
--- NOTE | 2018-05-29 20:08 | PN ---
PROGRESS NOTE DATE OF SERVICE: 05/29/2018 This 67-year-old gentleman who was admitted with left lower pneumonia and neutropenic sepsis and broad-spectrum IV antibiotics. Most recent blood culture positive for 96 hours. No chest pain. No palpitations. No fever. EXAM: Alert and oriented x3. Pulse 74, blood pressure 160/75, respirations 16, temperature 98.7, pulse ox 97% on room air. HEENT: Conjunctivae normal. NECK: No jugular venous distention. CARDIOVASCULAR: S1, S2 muffled. RESPIRATORY: Breath sounds diminished in the bases. A few scattered rhonchi. ABDOMEN: Soft. NERVOUS SYSTEM: No focal deficits. LAB STUDIES: WBC 1.2, hemoglobin 9.1, sodium 135. ASSESSMENT: 1. Fever with possibly neutropenic sepsis. 2. Acute left lower lobe pneumonia possibly gram-negative. 3. Leukopenia. 4. Hyponatremia. 5. Elevated lactic acid secondary to sepsis. 6. 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 7. History of testicular cancer. 8. History of gastroesophageal reflux disease. 9. History of pulmonary embolism. 10.History of hypothyroidism. 11.History of sepsis. 12.History of cataracts. 13.History of tonsillectomy. 14.History of hernia repair. RECOMMENDATIONS AND DISCUSSION: I recommend to continue current medications, continue monitoring and symptomatic treatment. Continue the antibiotics. Continue the rest of medications. Await cultures. Closely follow with Infectious Disease. Increase ambulation. Further recommendations to follow. MMODL / IJN: [id number] /
[2018-05-30] MEDS ORDERED: VANCOMYCIN TROUGH DUE 1 EACH MISC MISCELLANE ONE (05:00)
[2018-05-30] MEDS: CLOTRIMAZOLE TROCHE 10 MG TROCHE PO SCH ×2 (05:23→09:18)
[2018-05-30] MEDS: LEVOTHYROXINE 100 MCG TAB PO SCH (05:36)
[2018-05-30] MEDS: VANCOMYCIN 1,000 MG in SODIUM CHLORIDE 0.9% 250 ML IVPB SCH (05:36)
[2018-05-30] MEDS: HYDROmorphone 0.5 MG/0.5 ML SYRINGE IVP PRN ×2 (05:36→11:30)
[2018-05-30] MEDS: CEFEPIME 2 GM in SODIUM CHLORIDE 0.9% 100 ML IVPB SCH (09:10)
[2018-05-30] MEDS: PANTOPRAZOLE 40 MG TABLET PO SCH (09:16)
[2018-05-30] MEDS: DOCUSATE 100 MG CAP PO SCH (09:17)
[2018-05-30] MEDS: APIXABAN 5 MG TAB PO SCH (09:17)
[2018-05-30] MEDS: FLUTICASONE 50MCG/SPRAY NASAL 16GM EA NOSTRIL SCH (09:17)
[2018-05-30] MEDS: URSODIOL 300 MG CAP PO SCH (09:18)
[2018-05-30] MEDS: MEGESTROL 400 MG/10 ML CUP PO SCH (09:18)
[2018-05-30] MEDS: MAG HYDROX/AL HYDROX/SIMETH 30 ML, LIDOCAINE VISCOUS 30 ML, diphenhydrAMINE ELIXIR 75 M... PO SCH ×8 (09:18→11:23)
[2018-05-30 09:41] LABS: ALT 24 U/L (21-72); AST 12 U/L (17-59); Albumin 2.2 g/dL (3.5-5.0); Alkaline Phosphatase 46 U/L (38-126); Anion Gap 4 mmol/L; Blood Urea Nitrogen 15 mg/dL (9-20); Calcium 8.1 mg/dL (8.4-10.2); Carbon Dioxide 23 mmol/L (22-30); Chloride 106 mmol/L (98-107); Glucose 86 mg/dL (74-99); Sodium 133 mmol/L (137-145); Total Bilirubin 0.4 mg/dL (0.2-1.3); Total Protein 4.2 g/dL (6.3-8.2)
[2018-05-30 11:54] VITALS: BP 125/81; PULSE 102; RESP 18; TEMP 98.9
[2018-05-30 11:57] LABS: Anisocytosis Slight; HCT 26.7 % (39.0-53.0); HGB 9.2 gm/dL (13.0-17.5); Hypochromasia Slight; MCH 34.2 pg (25.0-35.0); MCHC 34.3 g/dL (31.0-37.0); MCV 99.7 fL (80.0-100.0); Macrocytosis Slight; Mean Platelet Volume 7.1; Platelet Count 413 k/uL (150-450); Poikilocytosis Moderate; RBC 2.68 m/uL (4.30-5.90); RDW 18.3 % (11.5-15.5); WBC 1.9 k/uL (3.8-10.6)
[2018-05-30 12:53] LABS: Band Neutrophils % 2 %; Eosinophils # (M) 0.02 k/uL (0-0.7); Lymphocytes # (M) 0.65 k/uL (1.0-4.8); Metamyelocytes # (M) 0.02 k/uL (0); Metamyelocytes % 1 %; Monocytes # (M) 0.68 k/uL (0-1.0); Myelocytes # (M) 0.02 k/uL (0); Myelocytes % 1 %; Neutrophils % (M) 25 %; Nucleated Red Blood Cells 0 /100 WBC (0-0); Total Cells Counted 100
--- NOTE | 2018-05-30 21:48 | P.PN ---
Subjective Progress Note Date: 05/30/18 This is a 67-year-old male patient well known to ID service as he has had previous bouts of E. coli sepsis related to obstruction of his biliary track. 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 There is evidence of bilateral pulmonary emboli without much symptom is being treated with Eliquis. Patient gives history of influenza A with admission 05/09/2018. Patient states he recovered from the influenza but then developed a cough with thick white sputum production that has been going on for about one week. He also had 1 documented fever at home and came into [facility] emergency center for evaluation. He was febrile with a temperature 102.8, white count 1.5, creatinine 0.93. Lactic acid 3.5 and he is status post 3 L of IV fluid. Albumin 2.6. Influenza negative. Urinalysis was cloudy with calcium oxalate crystals, rare bacteria and hyaline casts. Chest x-ray showed reveals some focal peripheral left basilar Lyle that he could represent atelectasis or elevated a infiltrate. There is a consult in place for Dr. Oliver. Patient is currently on cephapirin and vancomycin. Patient does have oral thrush and his is bringing and nystatin from home. Report to left upper chest wall is functioning well. 05/27/2018 patient is more comfortable today. However is having some headaches that are somewhat new. Responded to Dilaudid but recurring after. Temperature 99.4 no chills or rigors. Breathing is improved. Trending to improvement. 05/30/2018 patient is now feeling considerably better. Headaches have improved. Not had any further fever. Breathing is improved. Apply any without difficulties. Looking forward to going home. The patient's does relate that her son did have influenza also. Objective - Vital Signs Vital signs: Vital Signs Temp 98.9 F 05/30/18 11:53 Pulse 102 H 05/30/18 11:53 Resp 18 05/30/18 11:53 BP 125/81 05/30/18 11:53 Pulse Ox 96 05/30/18 11:53 Intake & Output 05/30/18 05/30/18 05/31/18 06:59 18:59 06:59 Intake Total 1080 Balance 1080 Intake: Intake, IV Titration 600 Amount Cefepime 2 gm In Sodium 100 Chloride 0.9% 100 ml @ 200 mls/hr IVPB Q8HR MAGDY Rx#:[id number] Vancomycin 1,000 mg In 500 Sodium Chloride 0.9% 250 ml @ 125 mls/hr IVPB Q8H MAGDY Rx#:[id number] Oral 480 Other: Voiding Method Toilet # Voids 2 2 - Exam Gen: This is a 67-year-old male. He is resting in bed appears to be comfortable and in no acute distress. HEENT: Head is atraumatic, normocephalic. Pupils equal, round. Sclerae is anicteric. Oral mucous membranes are moist. Positive thrush. NECK: Supple. No JVD. No lymphadenopathy. No thyromegaly. LUNGS: Symmetrical air entry is noted, air exchange is improved rare wheezing no bronchial sounds HEART: Regular rate and rhythm. No murmur. Port to the left upper anterior chest with no surrounding erythema or tenderness. ABDOMEN: Soft. Bowel sounds are present. No masses. No tenderness. EXTREMITIES: No pedal edema. No calf tenderness. Dorsalis pedis +2 bilaterally. NEUROLOGICAL: Patient is awake, alert and oriented x3 - Labs CBC & Chem 7: 05/30/18 11:30 05/30/18 05:19 Labs: Abnormal Lab Results - Last 24 Hours (Table) 05/30/18 05/30/18 Range/Units 05:19 11:30 WBC 1.9 L (3.8-10.6) k/uL RBC 2.68 L (4.30-5.90) m/uL Hgb 9.2 L (13.0-17.5) gm/dL Hct 26.7 L (39.0-53.0) % RDW 18.3 H (11.5-15.5) % Neutrophils # (Manual) 0.50 L (1.3-7.7) k/uL Lymphocytes # (Manual) 0.65 L (1.0-4.8) k/uL Metamyelocytes # (Man) 0.02 H (0) k/uL Myelocytes # (Manual) 0.02 H (0) k/uL Sodium 133 L (137-145) mmol/L Calcium 8.1 L (8.4-10.2) mg/dL AST 12 L (17-59) U/L Total Protein 4.2 L (6.3-8.2) g/dL Albumin 2.2 L (3.5-5.0) g/dL Microbiology - Last 24 Hours (Table) 05/24/18 14:03 Blood Culture - Final Blood No Growth after 144 hours Laboratory Results WBC 1.9 k/uL (3.8-10.6) L 05/30/18 11:30 RBC 2.68 m/uL (4.30-5.90) L 05/30/18 11:30 Hgb 9.2 gm/dL (13.0-17.5) L 05/30/18 11:30 Hct 26.7 % (39.0-53.0) L 05/30/18 11:30 MCV 99.7 fL (80.0-100.0) 05/30/18 11:30 MCH 34.2 pg (25.0-35.0) 05/30/18 11:30 MCHC 34.3 g/dL (31.0-37.0) 05/30/18 11:30 RDW 18.3 % (11.5-15.5) H 05/30/18 11:30 Plt Count 413 k/uL (150-450) 05/30/18 11:30 Neutrophils % 77 % 05/26/18 06:50 Neutrophils % (Manual) 25 % 05/30/18 11:30 Band Neutrophils % 2 % 05/30/18 11:30 Lymphocytes % 13 % 05/26/18 06:50 Lymphocytes % (Manual) 34 % 05/30/18 11:30 Monocytes % 5 % 05/26/18 06:50 Monocytes % (Manual) 36 % 05/30/18 11:30 Eosinophils % 1 % 05/26/18 06:50 Eosinophils % (Manual) 1 % 05/30/18 11:30 Basophils % 1 % 05/26/18 06:50 Basophils % (Manual) 1 % 05/29/18 06:05 Metamyelocytes % 1 % 05/30/18 11:30 Myelocytes % 1 % 05/30/18 11:30 Neutrophils # 1.9 k/uL (1.3-7.7) 05/26/18 06:50 Neutrophils # (Manual) 0.50 k/uL (1.3-7.7) L 05/30/18 11:30 Lymphocytes # 0.3 k/uL (1.0-4.8) L 05/26/18 06:50 Lymphocytes # (Manual) 0.65 k/uL (1.0-4.8) L 05/30/18 11:30 Monocytes # 0.1 k/uL (0-1.0) 05/26/18 06:50 Monocytes # (Manual) 0.68 k/uL (0-1.0) 05/30/18 11:30 Eosinophils # 0.0 k/uL (0-0.7) 05/26/18 06:50 Eosinophils # (Manual) 0.02 k/uL (0-0.7) 05/30/18 11:30 Basophils # 0.0 k/uL (0-0.2) 05/26/18 06:50 Basophils # (Manual) 0.02 k/uL (0-0.2) 05/29/18 06:05 Metamyelocytes # (Man) 0.02 k/uL (0) H 05/30/18 11:30 Myelocytes # (Manual) 0.02 k/uL (0) H 05/30/18 11:30 Nucleated RBCs 0 /100 WBC (0-0) 05/30/18 11:30 Manual Slide Review Performed 05/30/18 11:30 Polychromasia Present 05/27/18 07:20 Hypochromasia Slight 05/30/18 11:30 Poikilocytosis Moderate 05/30/18 11:30 Anisocytosis Slight 05/30/18 11:30 Macrocytosis Slight 05/30/18 11:30 Sodium 133 mmol/L (137-145) L 05/30/18 05:19 Potassium 4.0 mmol/L (3.5-5.1) 05/30/18 05:19 Chloride 106 mmol/L (98-107) 05/30/18 05:19 Carbon Dioxide 23 mmol/L (22-30) 05/30/18 05:19 Anion Gap 4 mmol/L 05/30/18 05:19 BUN 15 mg/dL (9-20) 05/30/18 05:19 Creatinine 0.72 mg/dL (0.66-1.25) 05/30/18 05:19 Est GFR (CKD-EPI)AfAm >90 (>60 ml/min/1.73 sqM) 05/30/18 05:19 Est GFR (CKD-EPI)NonAf >90 (>60 ml/min/1.73 sqM) 05/30/18 05:19 Glucose 86 mg/dL (74-99) 05/30/18 05:19 Lactic Ac Sepsis Rflx Y 05/24/18 14:48 Plasma Lactic Acid Paddy 1.1 mmol/L (0.7-2.0) 05/24/18 18:20 Calcium 8.1 mg/dL (8.4-10.2) L 05/30/18 05:19 Total Bilirubin 0.4 mg/dL (0.2-1.3) 05/30/18 05:19 AST 12 U/L (17-59) L 05/30/18 05:19 ALT 24 U/L (21-72) 05/30/18 05:19 Alkaline Phosphatase 46 U/L (38-126) 05/30/18 05:19 Total Protein 4.2 g/dL (6.3-8.2) L 05/30/18 05:19 Albumin 2.2 g/dL (3.5-5.0) L 05/30/18 05:19 Urine Color Yellow 05/24/18 22:30 Urine Appearance Cloudy (Clear) 05/24/18 22:30 Urine pH 6.0 (5.0-8.0) 05/24/18 22:30 Ur Specific [place] 1.035 (1.001-1.035) 05/24/18 22:30 Urine Protein 1+ (Negative) H 05/24/18 22:30 Urine Glucose (UA) Negative (Negative) 05/24/18 22:30 Urine Ketones Negative (Negative) 05/24/18 22:30 Urine Blood Negative (Negative) 05/24/18 22:30 Urine Nitrite Negative (Negative) 05/24/18 22:30 Urine Bilirubin Negative (Negative) 05/24/18 22:30 Urine Urobilinogen 4.0 mg/dL (<2.0) 05/24/18 22:30 Ur Leukocyte Esterase Negative (Negative) 05/24/18 22:30 Urine RBC 1 /hpf (0-5) 05/24/18 22:30 Urine WBC <1 /hpf (0-5) 05/24/18 22:30 Ur Squamous Epith Cells 1 /hpf (0-4) 05/24/18 22:30 Calcium Oxalate Crystal Moderate /hpf (None) H 05/24/18 22:30 Urine Bacteria Rare /hpf (None) H 05/24/18 22:30 Hyaline Casts 14 /lpf (0-2) H 05/24/18 22:30 Urine Mucus Many /hpf (None) H 05/24/18 22:30 Vancomycin Trough 19.1 ug/mL 05/30/18 05:19 Influenza Type A RNA Not Detected (Not Detectd) 05/24/18 14:03 Influenza Type B (PCR) Not Detected (Not Detectd) 05/24/18 14:03 Microbiology 05/24/18 14:03 Blood Blood Culture - Final No Growth after 144 hours 05/24/18 22:30 Urine,Clean Catch Urine Culture - Final Assessment and Plan (1) Left lower lobe pneumonia Narrative/Plan: Pleasant 67-year-old male who has the 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 However recently was at Hospital where he was treated for his influenza a infection was a relatively well however he now presents with the onset of sudden fever 102.8 relative leukopenia and feeling very poorly. Was found evidence of a new left lower lobe pneumonia related to his recent influenza. His leukopenia is 30 improving. His liver enzymes until a bilirubin are normal. Influenza A at this time is negative and cultures are pending. He is currently being treated with cefepime and vancomycin which are appropriate until we have further data. Fortunately he is feeling better already. The mild thrush with a bring in his nystatin from home which he tolerates well. Cultures may further direct antibiotic therapy. There still wondering if she will start his chemotherapy and Wednesday. 05/27/2018 patient feels better today but is having some headaches that are somewhat unusual for him. His breathing and shortness of breath improved. Fever has definitely improved down to 99.4 today. Relative leukopenia is occurring but no absolute neutropenia. We'll continue on current antibiotic therapy with vancomycin and cefepime. Is having some headache and some Fioricet as requested which may be helpful. Cultures are process will further help direct the course of antibiotic therapy. Chemotherapy on hold for a week. 05/30/2018 patient is now much improved. Patient's has many questions. We discuss his current progress. He is feeling quite well this point in time. His had a good response to antibiotic therapy. He's has a mild leukopenia which could be from antibiotic therapy including the vancomycin. Consequently antibiotic therapy is now altered to oral cefuroxime 500 mg every 12 hours to complete his course of therapy. As far as restarting chemotherapy that will be determined by the oncologist next week. He needs to have follow-up blood work this Wednesday to ensure that he has improving white blood cell count after the discontinuation of his antibiotics and ongoing resolution of his pneumonia. He is ready for discharge home today. Status: Acute Code(s): J18.1 - LOBAR PNEUMONIA, UNSPECIFIED ORGANISM SNOMED Code(s): 736742370
--- NOTE | 2018-05-31 01:58 | DS ---
DISCHARGE SUMMARY FINAL DIAGNOSES: 1. Fever with possibly neutropenic sepsis. 2. Acute left lower lobe pneumonia with possibly gram-negative. 3. Leukopenia. 4. Hyponatremia. 5. Elevated lactic acid secondary to sepsis present on admission. 6. History of pancreatic cancer Ampulla of Vater stage IV with malignancy and chemo. 7. History of testicular cancer. 8. History of gastroesophageal reflux disease. 9. History of pulmonary embolism. 10.History hypothyroidism. 11.History of sepsis. 12.History of cataracts. 13.History of tonsillectomy. 14.History of hernia repair. DISCHARGE DISPOSITION: The patient will be discharged in stable condition with guarded prognosis. Total time taken: 35 minutes. HISTORY OF PRESENT ILLNESS: This 67-year-old with a past medical history of multiple medical problems was admitted with left lower lobe pneumonia, neutropenic sepsis. The patient treated with IV antibiotics, bronchodilators. Patient improved significantly. Incentive spirometry given. Cultures are negative so far. Dr. Spviey saw the patient and the patient will be cleared for discharge. Currently the white count is 1.8, hemoglobin is 9.2. On exam vitals are stable. Cardiovascular: S1, S2. Respiration: No rhonchi. No crackles. Abdomen soft. Nervous System: No focal deficits. DISCHARGE ADVICE AND MEDICATIONS: 1. Discharge diet is cardiac diet. 2. Activity limited until follow up. 3. Follow up with Dr. Styles in 2-3 days. 4. Follow up with hematology/oncology as mentioned earlier. 5. Follow up with ID as recommended. 6. Chemotherapy is postponed for 1 week. MEDICATIONS: 1. Colace 100 mg p.o. b.i.d. 2. Eliquis 5 mg p.o. b.i.d. 3. Flonase 2 sprays daily. 4. Megace 800 mg p.o. daily. 5. MiraLAX 17 g daily p.r.n. 6. Mucinex 600 mg p.o. b.i.d. p.r.n. 7. Mycostatin 5 mL cup. 8. Omeprazole 20 mg p.o. daily. 9. Synthroid 100 mcg p.o. daily. 10.Tylenol p.r.n. 11.Ursodiol 300 mg p.o. b.i.d. 12.Ceftin 500 mg p.o. b.i.d. for 5 days. 13.Protonix 40 mg p.o. daily. Once again, the patient is being discharged in stable condition with guarded prognosis. MMODL / ELION: [id number] /
== END 2018-05-30 17:00 | disposition home or self-care (01) | DRG 871 ==
LOC: EC 13:12 → 3NMEDONC 16:22 → OBSVTOIN 05-25 14:14
PROVIDERS: ADMIT Hospitalist; ATTEND Hospitalist
DX: A41.9 Sepsis, unspecified organism (principal); J15.6 Pneumonia due to other Gram-negative bacteria; C24.1 Malignant neoplasm of ampulla of Vater; C78.7 Secondary malignant neoplasm of liver and intrahepatic bile duct; E87.1 Hypo-osmolality and hyponatremia; E87.2 Acidosis; R18.8 Other ascites; D70.3 Neutropenia due to infection; R50.81 Fever presenting with conditions classified elsewhere; E86.0 Dehydration; E03.9 Hypothyroidism, unspecified; D53.9 Nutritional anemia, unspecified; K21.9 Gastro-esophageal reflux disease without esophagitis; K12.31 Oral mucositis (ulcerative) due to antineoplastic therapy; T45.1X5A Adverse effect of antineoplastic and immunosuppressive drugs, initial encounter; Z79.01 Long term (current) use of anticoagulants; Z79.890 Hormone replacement therapy; Z79.818 Long term (current) use of other agents affecting estrogen receptors and estrogen levels; Z79.899 Other long term (current) drug therapy; Z86.19 Personal history of other infectious and parasitic diseases; Z85.47 Personal history of malignant neoplasm of testis; Z86.711 Personal history of pulmonary embolism; Z90.79 Acquired absence of other genital organ(s); Z88.5 Allergy status to narcotic agent; Z80.3 Family history of malignant neoplasm of breast; Z80.52 Family history of malignant neoplasm of bladder; Z80.0 Family history of malignant neoplasm of digestive organs; H26.9 Unspecified cataract; G62.9 Polyneuropathy, unspecified
CPT/HCPCS: 36415; 71046; 80048; 80053; 80202; 81001; 83605; 85025; 87040; 87086; 87502; 93005; 94760; 96361; 96365; 96375; 99285

== ENCOUNTER 2018-06-07 23:52 | Inpatient (IN) | payer OTHER, MEDICARE, BC ==
[2018-06-08] MEDS ORDERED: ONDANSETRON 4 MG/2 ML VIAL IVP STA (00:27)
[2018-06-08] MEDS ORDERED: HYDROmorphone 1 MG/ML 1 ML SYRINGE IVP STA (00:27)
[2018-06-08 02:51] LABS: Anisocytosis Slight; Basophils # (A) 0.1 k/uL (0-0.2); Basophils % (A) 0 %; Eosinophils % (A) 0 %; HCT 30.4 % (39.0-53.0); HGB 9.7 gm/dL (13.0-17.5); Hypochromasia Moderate; Lymphocytes # (A) 0.6 k/uL (1.0-4.8); Lymphocytes % (A) 3 %; MCH 32.8 pg (25.0-35.0); MCHC 31.8 g/dL (31.0-37.0); Macrocytosis Moderate; Mean Platelet Volume 7.2; Monocytes # (A) 1.8 k/uL (0-1.0); Monocytes % (A) 8 %; Neutrophils # (A) 19.7 k/uL (1.3-7.7); Neutrophils % (A) 87 %; Platelet Count 566 k/uL (150-450); Poikilocytosis Slight; RBC 2.95 m/uL (4.30-5.90); RDW 17.9 % (11.5-15.5); WBC 22.6 k/uL (3.8-10.6)
[2018-06-08 02:54] LABS: ALT 31 U/L (21-72); AST 41 U/L (17-59); Albumin 2.6 g/dL (3.5-5.0); Alkaline Phosphatase 161 U/L (38-126); Anion Gap 6 mmol/L; Blood Urea Nitrogen 16 mg/dL (9-20); Calcium 8.8 mg/dL (8.4-10.2); Carbon Dioxide 24 mmol/L (22-30); Chloride 102 mmol/L (98-107); Glucose 84 mg/dL (74-99); Potassium 4.6 mmol/L (3.5-5.1); Sodium 132 mmol/L (137-145); Total Bilirubin 0.8 mg/dL (0.2-1.3); Total Protein 4.8 g/dL (6.3-8.2)
[2018-06-08 03:06] LABS: Amylase 1090 U/L (30-110)
[2018-06-08 03:40] LABS: Lipase 6744 U/L (23-300)
[2018-06-08] MEDS ORDERED: SODIUM CHLORIDE 0.9% 500 ML 500 ML IV STA (04:01)
[2018-06-08] MEDS ORDERED: SODIUM CHLORIDE 0.9% 1,000 ML IV STA (04:01)
--- NOTE | 2018-06-08 04:55 | ED ---
Abdominal Pain HPI - General Chief Complaint: Abdominal Pain Stated Complaint: Upper Abd Pain Time Seen by Provider: 06/08/18 00:11 Source: patient, family Mode of arrival: wheelchair Limitations: no limitations - History of Present Illness Initial Comments: This patient is 68-year-old man who presents with epigastric pain that radiates to his back. Patient states that it seemed to come on over the past day, beginning yesterday in the afternoon. Patient states that things worsened this evening so he felt he should be seen here. He does note that he had an iron infusion for anemia. The patient also states that he was wondering if the cefuroxime that he is taking as an outpatient may be bringing on the pain. MD Complaint: abdominal pain Onset/Timin -: days(s) Location: epigastric Radiation: back Migration to: no migration Severity: moderate Quality: aching Consistency: constant Improves With: nothing Worsens With: nothing Associated Symptoms: nausea - Related Data Home Medications Medication Instructions Recorded Confirmed Fluticasone Nasal [place] [Flonase 2 spray EA NOSTRIL DAILY 05/23/16 06/08/18 Nasal [place]] Ursodiol 300 mg PO BID 03/16/17 06/08/18 Levothyroxine Sodium [Synthroid] 100 mcg PO DAILY 06/01/17 06/08/18 Acetaminophen [Tylenol Extra 500 - 1,000 mg PO Q6H PRN 11/17/17 06/08/18 Strength] Apixaban [Eliquis] 5 mg PO BID 11/17/17 06/08/18 Nystatin 100,000 Unit/ml Susp 500,000 unit PO QID 01/16/18 06/08/18 [Mycostatin Oral Susp] guaiFENesin [Mucinex] 600 mg PO DAILY PRN 01/16/18 06/08/18 Docusate [Colace] 100 mg PO BID 05/08/18 06/08/18 Megestrol Acetate [Megace] 800 mg PO DAILY 05/08/18 06/08/18 Omeprazole 20 mg PO DAILY 05/08/18 06/08/18 Polyethylene Glycol 3350 [Miralax] 17 gm PO DAILY PRN 05/08/18 06/08/18 Guaifen/Dextromethorphan/PE 20 ml PO BID 05/24/18 06/08/18 [Mucinex Fast-Max Congest-Cough] Previous Rx's Medication Instructions Recorded Pantoprazole Sodium [Protonix] 40 mg PO BID #60 tablet. 02/07/18 Cefuroxime Axetil [Ceftin] 500 mg PO BID #10 tab 05/30/18 Allergies Allergy/AdvReac Type Severity Reaction Status Date / Time morphine AdvReac BRADYCARDIC Verified 05/24/18 13:47 Review of Systems ROS Statement: Those systems with pertinent positive or pertinent negative responses have been documented in the HPI. ROS Other: All systems not noted in ROS Statement are negative. Constitutional: Reports: weakness. Denies: fever Respiratory: Denies: cough, dyspnea Cardiovascular: Reports: edema. Denies: chest pain, palpitations, syncope Gastrointestinal: Reports: as per HPI, abdominal pain, nausea. Denies: vomiting, diarrhea Genitourinary: Denies: dysuria, hematuria Musculoskeletal: Denies: back pain Skin: Denies: rash Neurological: Denies: headache Past Medical History Past Medical History: Cancer, GERD/Reflux, Pulmonary Embolus (PE), Thyroid Disorder Additional Past Medical History / Comment(s): Testicular cancer 1979; Pancreatic Cancer (ampulla of lay), 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 Hypothyroid. upper/lower bridges. PE X2 11/01/17.cataracts History of Any Multi-Drug Resistant Organisms: None Reported Past Surgical History: Hernia Repair, Tonsillectomy Additional Past Surgical History / Comment(s): 1979 Lt Testicle, lymph nodes removed along spine. Right Inguinal Hernia Repair x3 with mesh. has a power port. Hemorrhoidectomy (2011), Colonoscopy (Jan 2015), Titanium Stent in Pancreas (02/2015 @ [place] [facility]), Restent in 01/2016 ([facility])and in 2017 . ERCP'S. Power Port. 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 Past Psychological History: No Psychological Hx Reported Smoking Status: Never smoker Past Alcohol Use History: None Reported Past Drug Use History: None Reported - Past Family History Mother Family Medical History: Cancer Additional Family Medical History / Comment(s): Cancer x 3, lived until age 89. Sister(s) Family Medical History: Cancer Additional Family Medical History / Comment(s): Breast cancer. Brother(s) Family Medical History: Cancer Father Family Medical History: Cancer Additional Family Medical History / Comment(s): Colon/bladder cancer x 3, at 94 General Exam Limitations: no limitations General appearance: alert, in no apparent distress Head exam: Present: atraumatic, normocephalic Eye exam: Present: normal appearance. Absent: scleral icterus, conjunctival injection ENT exam: Present: mucous membranes dry Neck exam: Present: normal inspection Respiratory exam: Present: normal lung sounds bilaterally, decreased breath sounds (At the left base). Absent: respiratory distress, wheezes, rales, rhonchi, stridor Cardiovascular Exam: Present: normal rhythm, tachycardia, normal heart sounds. Absent: systolic murmur, diastolic murmur, rubs, gallop GI/Abdominal exam: Present: soft. Absent: distended, tenderness, guarding, rebound, rigid Extremities exam: Present: normal inspection, normal capillary refill, pedal edema (There is trace of edema at the ankles bilaterally). Absent: calf tenderness Back exam: Absent: CVA tenderness (R), CVA tenderness (L) Neurological exam: Present: alert Skin exam: Present: warm, dry, intact, normal color. Absent: rash Course Vital Signs 06/08/18 06/08/18 06/08/18 00:03 02:37 02:48 Temperature 99.2 F 100.3 F H Pulse Rate 136 H 130 H Respiratory 20 16 Rate Blood Pressure 120/77 126/78 O2 Sat by Pulse 97 95 Oximetry 06/08/18 06/08/18 04:01 05:12 Temperature 98.9 F Pulse Rate 133 H 125 H Respiratory 18 18 Rate Blood Pressure 104/93 123/95 O2 Sat by Pulse 95 95 Oximetry Medical Decision Making - Lab Data Result diagrams: 06/08/18 02:20 06/08/18 02:20 Lab Results 06/08/18 06/08/18 06/08/18 Range/Units 02:20 02:20 02:20 WBC 22.6 H (3.8-10.6) k/uL RBC 2.95 L (4.30-5.90) m/uL Hgb 9.7 L (13.0-17.5) gm/dL Hct 30.4 L (39.0-53.0) % MCV 103.0 H (80.0-100.0) fL MCH 32.8 (25.0-35.0) pg MCHC 31.8 (31.0-37.0) g/dL RDW 17.9 H (11.5-15.5) % Plt Count 566 H (150-450) k/uL Neutrophils % 87 % Lymphocytes % 3 % Monocytes % 8 % Eosinophils % 0 % Basophils % 0 % Neutrophils # 19.7 H (1.3-7.7) k/uL Lymphocytes # 0.6 L (1.0-4.8) k/uL Monocytes # 1.8 H (0-1.0) k/uL Eosinophils # 0.0 (0-0.7) k/uL Basophils # 0.1 (0-0.2) k/uL Hypochromasia Moderate Poikilocytosis Slight Anisocytosis Slight Macrocytosis Moderate Sodium 132 L (137-145) mmol/L Potassium 4.6 (3.5-5.1) mmol/L Chloride 102 (98-107) mmol/L Carbon Dioxide 24 (22-30) mmol/L Anion Gap 6 mmol/L BUN 16 (9-20) mg/dL Creatinine 0.70 (0.66-1.25) mg/dL Est GFR (CKD-EPI)AfAm >90 (>60 ml/min/1.73 sqM) Est GFR (CKD-EPI)NonAf >90 (>60 ml/min/1.73 sqM) Glucose 84 (74-99) mg/dL Plasma Lactic Acid Paddy 1.6 (0.7-2.0) mmol/L Calcium 8.8 (8.4-10.2) mg/dL Total Bilirubin 0.8 (0.2-1.3) mg/dL AST 41 (17-59) U/L ALT 31 (21-72) U/L Alkaline Phosphatase 161 H (38-126) U/L Total Protein 4.8 L (6.3-8.2) g/dL Albumin 2.6 L (3.5-5.0) g/dL Amylase 1090 H* (30-110) U/L Lipase 6744 H (23-300) U/L Disposition
[2018-06-08] MEDS ORDERED: NALOXONE 0.4 MG/ML 1 ML VIAL IV PRN (04:59)
[2018-06-08] MEDS ORDERED: ONDANSETRON 4 MG/2 ML VIAL IVP PRN (04:59)
[2018-06-08] MEDS ORDERED: MORPHINE SULFATE 4 MG/ML SYRINGE IV PRN (04:59)
[2018-06-08] MEDS: SODIUM CHLORIDE 0.9% 1,000 ML IV SCH ×3 (06:09→21:26)
[2018-06-08] MEDS: HYDROmorphone 0.5 MG/0.5 ML SYRINGE IVP PRN ×5 (06:29→23:20)
[2018-06-08] MEDS ORDERED: SODIUM CHLORIDE 0.9% 500 ML 500 ML IV ONE (11:21)
--- NOTE | 2018-06-08 11:23 | P.CONS ---
History of Present Illness - Reason for Consult Consult date: 06/08/18 pancreatitis Requesting physician: Lizbeth Larkin - Chief Complaint abdominal pain - History of Present Illness 68-year-old gentleman well-known to the GI service for past medical history of pancreatic ampullary carcinoma with liver metastasis, pulmonary embolism maintained on Eliquis, cholangitis, biliary and duodenal stenting, multiple EGDs ERCPs, pancreatitis. Patient is receiving chemotherapy twice monthly however he had a setback these past few weeks secondary to pneumonia and influenza. He was discharged last week on home antibiotics with an a few days of discharge he developed increased abdominal pain bloatedness nausea vomiting. The symptoms persisted through the weekend up until last night. Poor oral intake. Spouse thinks the pancreatitis could be related to the antibiotic Ceftin. T-max 100.3. Admission white count 22.6. Hemoglobin 9.7. MCV 103. Platelet 566. BUN 16. Creatinine 0.7. LFTs within normal limits except alkaline phosphatase 161. Amylase 1090 per lipase 6744. Poor urine output this morning no emesis still reporting moderate upper abdominal pain. Review of Systems Constitutional: Denies fever, chills, sweats, weight gain, or loss. HEENT: Negative for migraines, blurred vision or loss, earaches, drainage, tinnitus, oral mucosal lesions, dysphagia, or odynophagia. Cardiac: Negative for chest pain, arrhythmias, or palpitation. Respiratory: Negative for shortness of breath, hemoptysis, cough, or sputum production. Gastrointestinal: See HPI for pertinent findings. Genitourinary: Negative for hematuria, urgency, frequency, polyuria, dysuria, or penile discharge. Musculoskeletal: Negative for muscle aches, swelling, arthritis, and arthralgias. Neurologic: Negative for stroke or TIA. Endocrine: Negative for thyroid problems. Skin: Negative for rash or itching. Psychiatric: Negative history for depression and anxiety Past Medical History Past Medical History: Cancer, GERD/Reflux, Pulmonary Embolus (PE), Thyroid Disorder Additional Past Medical History / Comment(s): Testicular cancer 1979; Pancreat ic Cancer (ampulla of lay), 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 Hypothyroid. upper/lower bridges. PE X2 11/01/17.cataracts History of Any Multi-Drug Resistant Organisms: None Reported Past Surgical History: Hernia Repair, Tonsillectomy Additional Past Surgical History / Comment(s): 1979 Lt Testicle, lymph nodes removed along spine. Right Inguinal Hernia Repair x3 with mesh. has a power port. Hemorrhoidectomy (2011), Colonoscopy (Jan 2015), Titanium Stent in Pancreas (02/2015 @ [place]), Restent in 01/2016 ([facility] [place])and in 2017 . ERCP'S. Power Port. duodenal stent for obstruction not malignant Past Anesthesia/Blood Transfusion Reactions: Previous Problems w/ Anesthesia Additional Past Anesthesia/Blood Transfusion Reaction / Comm: DIFFICULTY URINATING W/ HERNIA, HEMORRHOID SURGERIES. Past Psychological History: No Psychological Hx Reported Smoking Status: Never smoker Past Alcohol Use History: None Reported Past Drug Use History: None Reported - Past Family History Mother Family Medical History: Cancer Additional Family Medical History / Comment(s): Cancer x 3, lived until age 89. Sister(s) Family Medical History: Cancer Additional Family Medical History / Comment(s): Breast cancer. Brother(s) Family Medical History: Cancer Father Family Medical History: Cancer Additional Family Medical History / Comment(s): Colon/bladder cancer x 3, at 94 Medications and Allergies Home Medications Medication Instructions Recorded Confirmed Type Fluticasone Nasal [place] [Flonase 2 spray EA NOSTRIL DAILY 05/23/16 06/08/18 History Nasal [place]] Ursodiol 300 mg PO BID 03/16/17 06/08/18 History Levothyroxine Sodium [Synthroid] 100 mcg PO DAILY 06/01/17 06/08/18 History Acetaminophen [Tylenol Extra 500 - 1,000 mg PO Q6H PRN 11/17/17 06/08/18 History Strength] Apixaban [Eliquis] 5 mg PO BID 11/17/17 06/08/18 History Nystatin 100,000 Unit/ml Susp 500,000 unit PO QID 01/16/18 06/08/18 History [Mycostatin Oral Susp] guaiFENesin [Mucinex] 600 mg PO DAILY 01/16/18 06/08/18 History Pantoprazole Sodium [Protonix] 40 mg PO BID #60 tablet. 02/07/18 06/08/18 Rx Docusate [Colace] 100 mg PO BID 05/08/18 06/08/18 History Megestrol Acetate [Megace] 800 mg PO DAILY 05/08/18 06/08/18 History Omeprazole 20 mg PO DAILY 05/08/18 06/08/18 History Polyethylene Glycol 3350 [Miralax] 17 gm PO DAILY PRN 05/08/18 06/08/18 History Prochlorperazine [Compazine] 10 mg PO Q6H PRN 06/08/18 06/08/18 History Allergies Allergy/AdvReac Type Severity Reaction Status Date / Time cefuroxime [From Ceftin] AdvReac PANCREATITI Verified 06/08/18 07:51 S morphine AdvReac BRADYCARDIC Verified 06/08/18 07:51 Physical Exam Vitals: Vital Signs Temp Pulse Pulse Resp BP BP Pulse Ox 06/08/18 06:56 98.8 F 120 H 18 137/88 94 L 06/08/18 05:50 98.6 F 122 H 17 129/91 96 06/08/18 05:28 98.6 F 122 H 18 129/91 96 06/08/18 05:12 125 H 18 123/95 95 06/08/18 04:01 98.9 F 133 H 18 104/93 95 06/08/18 02:48 100.3 F H 06/08/18 02:37 130 H 16 126/78 95 06/08/18 00:03 99.2 F 136 H 20 120/77 97 Intake and Output 06/07/18 06/08/18 06/08/18 22:59 06:59 14:59 Other: Weight 82.554 kg General appearance: The patient is alert, oriented, in no acute distress. Appears weak and tired HET: Head is normocephalic and atraumatic. Pupils are equal and reactive. Oropharynx is clear without lesions. Neck: Supple without lymphadenopathy. Trachea midline. Heart: S1 S2. Regular rate and rhythm. Lungs: No crackles or wheezes are heard. Abdomen: Soft, bloated tense some degree of ascites felt moderate tenderness across the upper abdomen with hypoactive bowel sounds. No peritoneal signs. No palpable organomegaly or masses. Extremities: +2 BLE edema. Radial and pedal pulses are 2/4 bilaterally. Neurological: No focal deficits. Strength and sensation are grossly intact. Results CBC & Chem 7: 06/08/18 11:32 06/08/18 11:32 Labs: Abnormal Lab Results - Last 24 Hours (Table) 06/08/18 06/08/18 Range/Units 02:20 02:20 WBC 22.6 H (3.8-10.6) k/uL RBC 2.95 L (4.30-5.90) m/uL Hgb 9.7 L (13.0-17.5) gm/dL Hct 30.4 L (39.0-53.0) % MCV 103.0 H (80.0-100.0) fL RDW 17.9 H (11.5-15.5) % Plt Count 566 H (150-450) k/uL Neutrophils # 19.7 H (1.3-7.7) k/uL Lymphocytes # 0.6 L (1.0-4.8) k/uL Monocytes # 1.8 H (0-1.0) k/uL Sodium 132 L (137-145) mmol/L Alkaline Phosphatase 161 H (38-126) U/L Total Protein 4.8 L (6.3-8.2) g/dL Albumin 2.6 L (3.5-5.0) g/dL Amylase 1090 H* (30-110) U/L Lipase 6744 H (23-300) U/L Assessment and Plan (1) Acute pancreatitis Narrative/Plan: 68-year-old gentleman with a history metastatic periampullary pancreatic carcinoma recent hospitalization for pneumonia and influenza A presents with acute abdominal pain leukocytosis low-grade fever elevated pancreatic enzymes with possible ascites consistent with acute severe pancreatitis. Etiology is unclear possible differentials to consider but not limited to are infectious pseudocyst possible ischemic necrotizing pancreatiitis, possible progression of metastatic disease. Medication induced pancreatitis felt to be less likely. Current Visit: Yes Status: Acute Code(s): K85.90 - ACUTE PANCREATITIS WITHOUT NECROSIS OR INFECTION, UNSP SNOMED Code(s): 257071595 (2) Pancreatic cancer Current Visit: Yes Status: Acute Code(s): C25.9 - MALIGNANT NEOPLASM OF PANCREAS, UNSPECIFIED SNOMED Code(s): 943941501 (3) Leukocytosis Current Visit: Yes Status: Acute Code(s): D72.829 - ELEVATED WHITE BLOOD CELL COUNT, UNSPECIFIED SNOMED Code(s): 564535951 Plan: 1. CMP, CBC, amylase liapse now and daily. 2. Fluid bolus NS 500 cc x 1 increase maintenance to 150 ml/hr. 4. NPO except meds. 5. ID/ oncology consult. 6. CT CAP w/ contrast. Thank you for this kind referral and the opportunity to participate in the care of your patient. This consultation was discussed with Dr. Girard. The impression and plan of care have been directed as dictated.
[2018-06-08 12:10] LABS: Anisocytosis Slight; HCT 29.1 % (39.0-53.0); HGB 9.2 gm/dL (13.0-17.5); Hypochromasia Marked; MCH 32.4 pg (25.0-35.0); MCHC 31.5 g/dL (31.0-37.0); MCV 102.8 fL (80.0-100.0); Macrocytosis Moderate; Mean Platelet Volume 7.2; Platelet Count 534 k/uL (150-450); Poikilocytosis Slight; RBC 2.83 m/uL (4.30-5.90); RDW 18.2 % (11.5-15.5); WBC 25.3 k/uL (3.8-10.6)
[2018-06-08 12:19] LABS: ALT 21 U/L (21-72); AST 25 U/L (17-59); Albumin 2.5 g/dL (3.5-5.0); Alkaline Phosphatase 138 U/L (38-126); Anion Gap 6 mmol/L; Blood Urea Nitrogen 18 mg/dL (9-20); Calcium 8.6 mg/dL (8.4-10.2); Carbon Dioxide 25 mmol/L (22-30); Chloride 104 mmol/L (98-107); Glucose 77 mg/dL (74-99); Potassium 4.8 mmol/L (3.5-5.1); Sodium 135 mmol/L (137-145); Total Bilirubin 0.6 mg/dL (0.2-1.3); Total Protein 4.6 g/dL (6.3-8.2)
[2018-06-08 12:41] LABS: Amylase 533 U/L (30-110); Lipase 2794 U/L (23-300)
[2018-06-08 12:50] LABS: Lymphocytes # (M) 0.76 k/uL (1.0-4.8); Monocytes # (M) 1.77 k/uL (0-1.0); Myelocytes # (M) 0.51 k/uL (0); Myelocytes % 2 %; Neutrophils # (M) 22.26 k/uL (1.3-7.7); Neutrophils % (M) 88 %; Nucleated Red Blood Cells 0 /100 WBC (0-0); Total Cells Counted 100
--- NOTE | 2018-06-08 14:38 | P.HPIM ---
History of Present Illness Chief Complaint: Abdominal pain nausea vomiting This very pleasant 68-year-old gentleman with a past medical history significant for pancreatic ampullary carcinoma with liver metastases who had biliary and duodenal stenting in the past and few episodes of hepatitis before, comes in with above-mentioned complaints. Patient says that a few weeks ago he had influenza and pneumonia he was admitted and discharged last week on antibiotic cefuroxime. According to the , he started having nausea vomiting, bloating and abdominal pain few days after starting the antibiotics. Symptoms worsened few days ago that's why the patient came into the ER for further lotion management. was there at the bedside who helped me with the history and physical. The patient otherwise does not have any fever although T-max was 100.3. Patient otherwise does not complain any chest pain racing heart, no cough no shortness of breath, no tingling numbness of any 70s, and additional rest. No diarrhea no constipation. ER course-wbc's of 22.6 which went up to 25.3 hemoglobin stable around 9.7-9.2. Platelet counts 534 this morning. Sodium 135 potassium 4.8 BU and 18 creatinine 0.73 lipase was 6744 which came down to 2794 patient was given IV fluids, pain medications and admitted to the hospitalist service a further admission and management. GI was consulted. ID service and oncology was also consulted. Review of Systems All systems: negative Past Medical History Past Medical History: Cancer, GERD/Reflux, Pulmonary Embolus (PE), Thyroid Disorder Additional Past Medical History / Comment(s): Testicular cancer 1979; Pancreatic Cancer (ampulla of lay), 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 Hypothyroid. upper/lower bridges. PE X2 11/01/17.cataracts History of Any Multi-Drug Resistant Organisms: None Reported Past Surgical History: Hernia Repair, Tonsillectomy Additional Past Surgical History / Comment(s): 1979 Lt Testicle, lymph nodes removed along spine. Right Inguinal Hernia Repair x3 with mesh. has a power port. Hemorrhoidectomy (2011), Colonoscopy (Jan 2015), Titanium Stent in Pancre as (02/2015 @ [place]), Restent in 01/2016 ([facility])and in 2017 . ERCP'S. Power Port. 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 Past Psychological History: No Psychological Hx Reported Smoking Status: Never smoker Past Alcohol Use History: None Reported Past Drug Use History: None Reported - Past Family History Mother Family Medical History: Cancer Additional Family Medical History / Comment(s): Cancer x 3, lived until age 89. Sister(s) Family Medical History: Cancer Additional Family Medical History / Comment(s): Breast cancer. Brother(s) Family Medical History: Cancer Father Family Medical History: Cancer Additional Family Medical History / Comment(s): Colon/bladder cancer x 3, at 94 Medications and Allergies Home Medications Medication Instructions Recorded Confirmed Type Fluticasone Nasal [place] [Flonase 2 spray EA NOSTRIL DAILY 05/23/16 06/08/18 History Nasal [place]] Ursodiol 300 mg PO BID 03/16/17 06/08/18 History Levothyroxine Sodium [Synthroid] 100 mcg PO DAILY 06/01/17 06/08/18 History Acetaminophen [Tylenol Extra 500 - 1,000 mg PO Q6H PRN 11/17/17 06/08/18 History Strength] Apixaban [Eliquis] 5 mg PO BID 11/17/17 06/08/18 History Nystatin 100,000 Unit/ml Susp 500,000 unit PO QID 01/16/18 06/08/18 History [Mycostatin Oral Susp] guaiFENesin [Mucinex] 600 mg PO DAILY 01/16/18 06/08/18 History Pantoprazole Sodium [Protonix] 40 mg PO BID #60 tablet. 02/07/18 06/08/18 Rx Docusate [Colace] 100 mg PO BID 05/08/18 06/08/18 History Megestrol Acetate [Megace] 800 mg PO DAILY 05/08/18 06/08/18 History Omeprazole 20 mg PO DAILY 05/08/18 06/08/18 History Polyethylene Glycol 3350 [Miralax] 17 gm PO DAILY PRN 05/08/18 06/08/18 History Prochlorperazine [Compazine] 10 mg PO Q6H PRN 06/08/18 06/08/18 History Allergies Allergy/AdvReac Type Severity Reaction Status Date / Time cefuroxime [From Ceftin] AdvReac PANCREATITI Verified 06/08/18 07:51 S morphine AdvReac BRADYCARDIC Verified 06/08/18 07:51 Physical Exam Vitals: Vital Signs Temp Pulse Pulse Resp BP BP Pulse Ox 06/08/18 06:56 98.8 F 120 H 18 137/88 94 L 06/08/18 05:50 98.6 F 122 H 17 129/91 96 06/08/18 05:28 98.6 F 122 H 18 129/91 96 06/08/18 05:12 125 H 18 123/95 95 06/08/18 04:01 98.9 F 133 H 18 104/93 95 06/08/18 02:48 100.3 F H 06/08/18 02:37 130 H 16 126/78 95 06/08/18 00:03 99.2 F 136 H 20 120/77 97 Intake and Output 06/07/18 06/08/18 06/08/18 22:59 06:59 14:59 Other: # Voids 2 Weight 82.554 kg On exam, alert and oriented x3. HEENT: Conjunctivae normal. eyes normal. NECK: No JVD. No thyroid enlargement. No LNs CARDIOVASCULAR: S1, S2 muffled. No murmur RESPIRATION: Breath sounds diminished in the bases. No rhonchi or crackles. No bronchial breathing. ABDOMEN: Soft, tender in the epigastric area, distended bowel sounds present LEGS: No edema. no swelling NERVOUS SYSTEM: Cranial N 2-12 grossly normal. Moves all 4 limbs. No focal deficits. No sensory deficit. No signs of cerebellar dysfucntion. Skin: no ulcer no rash Results CBC & Chem 7: 06/08/18 11:32 06/08/18 11:32 Labs: Abnormal Lab Results - Last 24 Hours (Table) 06/08/18 06/08/18 06/08/18 Range/Units 02:20 02:20 11:32 WBC 22.6 H 25.3 H (3.8-10.6) k/uL RBC 2.95 L 2.83 L (4.30-5.90) m/uL Hgb 9.7 L 9.2 L (13.0-17.5) gm/dL Hct 30.4 L 29.1 L (39.0-53.0) % MCV 103.0 H 102.8 H (80.0-100.0) fL RDW 17.9 H 18.2 H (11.5-15.5) % Plt Count 566 H 534 H (150-450) k/uL Neutrophils # 19.7 H (1.3-7.7) k/uL Neutrophils # (Manual) 22.26 H (1.3-7.7) k/uL Lymphocytes # 0.6 L (1.0-4.8) k/uL Lymphocytes # (Manual) 0.76 L (1.0-4.8) k/uL Monocytes # 1.8 H (0-1.0) k/uL Monocytes # (Manual) 1.77 H (0-1.0) k/uL Myelocytes # (Manual) 0.51 H (0) k/uL Sodium 132 L (137-145) mmol/L Alkaline Phosphatase 161 H (38-126) U/L Total Protein 4.8 L (6.3-8.2) g/dL Albumin 2.6 L (3.5-5.0) g/dL Amylase 1090 H* (30-110) U/L Lipase 6744 H (23-300) U/L 06/08/18 Range/Units 11:32 WBC (3.8-10.6) k/uL RBC (4.30-5.90) m/uL Hgb (13.0-17.5) gm/dL Hct (39.0-53.0) % MCV (80.0-100.0) fL RDW (11.5-15.5) % Plt Count (150-450) k/uL Neutrophils # (1.3-7.7) k/uL Neutrophils # (Manual) (1.3-7.7) k/uL Lymphocytes # (1.0-4.8) k/uL Lymphocytes # (Manual) (1.0-4.8) k/uL Monocytes # (0-1.0) k/uL Monocytes # (Manual) (0-1.0) k/uL Myelocytes # (Manual) (0) k/uL Sodium 135 L (137-145) mmol/L Alkaline Phosphatase 138 H (38-126) U/L Total Protein 4.6 L (6.3-8.2) g/dL Albumin 2.5 L (3.5-5.0) g/dL Amylase 533 H* (30-110) U/L Lipase 2794 H (23-300) U/L Thrombosis Risk Factor Assmnt - Choose All That Apply Each Factor Represents 1 point: Obesity (BMI >25) Each Risk Factor Represents 2 Points: Age 61-74 years Thrombosis Risk Factor Assessment Total Risk Factor Score: 3 Thrombosis Risk Factor Assessment Level: Moderate Risk Assessment and Plan Assessment: - Acute pancreatitis - History of pancreatic ampullary cancer with liver metastases - History of PE - History of thyroid disorder - History of GERD Plan - Continue pain medications - Continue IV fluids - GI on board. Computed tomography scan of the chest abdomen pelvis ordered - Patient is having leukocytosis. Infectious disease consulted for the recomm endations - We'll continue to monitor the patient. - We'll order for lab work in the morning - Expected length of stay more than 2 midnights - Patient is full code Time with Patient: Greater than 30
--- NOTE | 2018-06-08 17:51 | CT ---
EXAMINATION TYPE: CT ChestAbdPelvis w con DATE OF EXAM: 06/08/2018 COMPARISON: CT 04/28/2018 HISTORY: Pancreatitis pain. History of pancreatic cancer. CT DLP: 1196.1 mGycm Automated exposure control for dose reduction was used. CONTRAST: CT scan of the chest, abdomen and pelvis is performed without Oral Contrast and with IV Con trast, patient injected with 100 mL of Isovue 300. FINDINGS: CHEST: There are a few nonspecific scattered tiny pulmonary nodular opacities which are unchanged. Eduardo bcentimeter right hilar lymph node redemonstrated, unchanged. Left lung base subsegmental atelectasis pattern redemonstrated, unchanged. However, scant left pleural effusion is noted on the present stud y, not seen on the prior study. No acute vascular findings. Skeletal structures are unchanged. ABDOMEN AND PELVIS: The biliary and duodenal conduits are intact and unchanged. The previously-seen posterior segment right hepatic lobe lesions are similar in appearance, but a 2 c m low-attenuation focus is noted within the anterior segment right hepatic lobe, not seen on the prio r study. Also new is a 2 cm hypodensity high in the posterior segment right hepatic lobe. Pancreas ductal dilation and pancreatic head prominence is unchanged. However, there are 3 enlarged gastrohepatic lymph nodes and they have increased in size, the largest measuring 3.7 x 2.2 cm in axial cross section, previously measuring 2.7 x 1.7 cm. Mildly increasing S MA mesenteric lymph nodes are also noted. Currently there is mild/moderate peritoneal fluid volume throughout the abdomen and pelvis, increased from small pelvic ascites on the prior study. Throughout the omentum there is a reticular nodular pa ttern not seen on the prior study, consistent with omental carcinomatosis. There is no bowel obstruction. No urinary tract obstruction. No acute vascular findings. Skeletal structures are unchanged. IMPRESSION: 1) CHEST: Scant left pleural effusion represents the only interval change. 2) ABDOMEN-PELVIS: Omental carcinomatosis with increasing ascites, 2 new liver lesions, and increasi ng gastrohepatic adenopathy.
--- NOTE | 2018-06-08 21:55 | P.CONS ---
History of Present Illness - Reason for Consult Consult date: 06/08/18 - Chief Complaint Abdominal Pain nausea - History of Present Illness This is a 67-year-old male patient well known to ID service as he has had previous bouts of E. coli sepsis related to obstruction of his biliary track. 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 There is evidence of bilateral pulmonary emboli without much symptom is being treated with Eliquis. Patient gives history of influenza A with admission 05/09/2018. Patient states he recovered from the influenza but then developed a cough with thick white sputum production that has been going on for about one week. He also had 1 documented fever at home and came into [facility] emergency center for evaluation. He was febrile with a temperature 102.8, white count 1.5, creatinine 0.93. Lactic acid 3.5 and he is status post 3 L of IV fluid. Albumin 2.6. Influenza negative. Urinalysis was cloudy with calcium oxalate crystals, rare bacteria and hyaline casts. Chest x-ray a left lower lobe infiltration. The patient had some leukopenia which was improving as his pneumonia was treated. He was discharged home to complete a course of cefuroxime to be reevaluated for restarting his chemotherapy. Patient over was not feeling well with a couple of days. He developed some nausea and some emesis and poor oral intake. He had 3 doses of cefuroxime left and was requested to complete them if possible. The patient however now had worsening presented to the emergency center because his nausea and emesis or worsening was having some increasing abdominal pain. Amylase and lipase were elevated and calcium was admitted for treatment of pancreatitis with GI rest and hydration. Infectious diseases follow-up was requested. Review of Systems HEENT:Denies headache or acute visual change. Denies sinus or mouth discom forts. Denies neck stiffness or pain. Denies significant oral cavity pain. Oral thrush is improved Lungs: The cough and shortness of breath have improved Cardiovascular: Denies significant shortness of breath, chest pain, chest wall pain, orthopnea, dyspnea on exertion, syncope Gastrointestinal: As per the HPI nausea emesis and abdominal pain Musculoskeletal: denies significant myalgias or arthralgias. No new joint swelling. Denies new back pain. Skin: Denies new rash or lesions. No new ulcers or wounds are related.. Neuro: Denies headache or visual change. Denies any new onset weakness or difficulty with ambulation. Denies falls or seizures. Psychiatric:Denies anxiety or depression. 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 Hypothyroid. upper/lower bridges. PE X2 11/01/17.cataracts History of Any Multi-Drug Resistant Organisms: None Reported Past Surgical History: Hernia Repair, Tonsillectomy Additional Past Surgical History / Comment(s): 1979 Lt Testicle, lymph nodes removed along spine. Right Inguinal Hernia Repair x3 with mesh. has a power port. Hemorrhoidectomy (2011), Colonoscopy (Jan 2015), Titanium Stent in Pancreas (02/2015 @ [place]), Restent in 01/2016 ([place])and in 2017 . ERCP'S. Power Port. duodenal stent for obstruction not malignant Past Anesthesia/Blood Transfusion Reactions: Previous Problems w/ Anesthesia Additional Past Anesthesia/Blood Transfusion Reaction / Comm: DIFFICULTY URINATING W/ HERNIA, HEMORRHOID SURGERIES. 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 He lives at home with his and son. There is a cat in the home. No recent travel or service. Smoking Status: Never smoker Past Alcohol Use History: None Reported Past Drug Use History: None Reported - Past Family History Mother Family Medical History: Cancer Additional Family Medical History / Comment(s): Cancer x 3, lived until age 89. Sister(s) Family Medical History: Cancer Additional Family Medical History / Comment(s): Breast cancer. Brother(s) Family Medical History: Cancer Father Family Medical History: Cancer Additional Family Medical History / Comment(s): Colon/bladder cancer x 3, at 94 Medications and Allergies Home Medications and Allergies Comment(s): Current Medications Hydromorphone HCl (Dilaudid) 0.5 mg IVP Q3HR PRN PRN Reason: Pain Last Admin: 06/08/18 20:22 Dose: 0.5 mg Documented by: Sodium Chloride (Saline 0.9%) 1,000 mls @ 150 mls/hr IV .Q6H40M MAGDY Last Admin: 06/08/18 21:26 Dose: Not Given Documented by: Naloxone HCl (Narcan) 0.2 mg IV Q2M PRN PRN Reason: Opioid Reversal Ondansetron HCl (Zofran) 4 mg IVP Q8HR PRN PRN Reason: Nausea And Vomiting Home Medications Medication Instructions Recorded Confirmed Type Fluticasone Nasal [place] [Flonase 2 spray EA NOSTRIL DAILY 05/23/16 06/08/18 History Nasal [place]] Ursodiol 300 mg PO BID 03/16/17 06/08/18 History Levothyroxine Sodium [Synthroid] 100 mcg PO DAILY 06/01/17 06/08/18 History Acetaminophen [Tylenol Extra 500 - 1,000 mg PO Q6H PRN 11/17/17 06/08/18 History Strength] Apixaban [Eliquis] 5 mg PO BID 11/17/17 06/08/18 History Nystatin 100,000 Unit/ml Susp 500,000 unit PO QID 01/16/18 06/08/18 History [Mycostatin Oral Susp] guaiFENesin [Mucinex] 600 mg PO DAILY 01/16/18 06/08/18 History Pantoprazole Sodium [Protonix] 40 mg PO BID #60 tablet. 02/07/18 06/08/18 Rx Docusate [Colace] 100 mg PO BID 05/08/18 06/08/18 History Megestrol Acetate [Megace] 800 mg PO DAILY 05/08/18 06/08/18 History Omeprazole 20 mg PO DAILY 05/08/18 06/08/18 History Polyethylene Glycol 3350 [Miralax] 17 gm PO DAILY PRN 05/08/18 06/08/18 History Prochlorperazine [Compazine] 10 mg PO Q6H PRN 06/08/18 06/08/18 History Allergies Allergy/AdvReac Type Severity Reaction Status Date / Time cefuroxime [From Ceftin] AdvReac PANCREATITI Verified 06/08/18 07:51 S morphine AdvReac BRADYCARDIC Verified 06/08/18 07:51 Physical Exam Vitals: Vital Signs Temp Pulse Pulse Resp BP BP Pulse Ox 06/08/18 19:23 98.6 F 110 H 16 139/86 95 06/08/18 14:04 98.7 F 120 H 16 134/79 94 L 06/08/18 06:56 98.8 F 120 H 18 137/88 94 L 06/08/18 05:50 98.6 F 122 H 17 129/91 96 06/08/18 05:28 98.6 F 122 H 18 129/91 96 06/08/18 05:12 125 H 18 123/95 95 06/08/18 04:01 98.9 F 133 H 18 104/93 95 06/08/18 02:48 100.3 F H 06/08/18 02:37 130 H 16 126/78 95 06/08/18 00:03 99.2 F 136 H 20 120/77 97 Intake and Output 06/08/18 06/08/18 06/08/18 06:59 14:59 22:59 Other: # Voids 2 1 Weight 82.554 kg 68-year-old male appears chronically ill, complaining of abdominal pain and improving nausea HEENT: Anicteric conjunctiva are pink and moist nasal mucosa grossly intact with out significant lesions, there is no thrush. Neck: The neck is supple without significant lymphadenopathy or thyromegaly. Lungs: Good bilateral air entry without significant crackles or wheezing. There is no significant bronchial sounds. There is no egophony or dullness. Heart: Regular rate and rhythm with an audible S1-S2, no S3 no S4. There is no significant murmur click or rub, PMI was nondisplaced. Abdomen: The abdomen is distended but soft generalized tenderness especially in the epigastrium Extremities: The upper extremities have excellent pulses they are symmetric, no significant petechiae or telangiectasia. No splinter hemorrhages were noted. Lower extremities with minimal edema Neuro: Awake alert oriented to person place and time. There are no acute new gross focal sensory motor deficits. Results CBC & Chem 7: 06/08/18 11:32 06/08/18 11:32 Labs: Abnormal Lab Results - Last 24 Hours (Table) 06/08/18 06/08/18 06/08/18 Range/Units 02:20 02:20 11:32 WBC 22.6 H 25.3 H (3.8-10.6) k/uL RBC 2.95 L 2.83 L (4.30-5.90) m/uL Hgb 9.7 L 9.2 L (13.0-17.5) gm/dL Hct 30.4 L 29.1 L (39.0-53.0) % MCV 103.0 H 102.8 H (80.0-100.0) fL RDW 17.9 H 18.2 H (11.5-15.5) % Plt Count 566 H 534 H (150-450) k/uL Neutrophils # 19.7 H (1.3-7.7) k/uL Neutrophils # (Manual) 22.26 H (1.3-7.7) k/uL Lymphocytes # 0.6 L (1.0-4.8) k/uL Lymphocytes # (Manual) 0.76 L (1.0-4.8) k/uL Monocytes # 1.8 H (0-1.0) k/uL Monocytes # (Manual) 1.77 H (0-1.0) k/uL Myelocytes # (Manual) 0.51 H (0) k/uL Sodium 132 L (137-145) mmol/L Alkaline Phosphatase 161 H (38-126) U/L Total Protein 4.8 L (6.3-8.2) g/dL Albumin 2.6 L (3.5-5.0) g/dL Amylase 1090 H* (30-110) U/L Lipase 6744 H (23-300) U/L 06/08/18 Range/Units 11:32 WBC (3.8-10.6) k/uL RBC (4.30-5.90) m/uL Hgb (13.0-17.5) gm/dL Hct (39.0-53.0) % MCV (80.0-100.0) fL RDW (11.5-15.5) % Plt Count (150-450) k/uL Neutrophils # (1.3-7.7) k/uL Neutrophils # (Manual) (1.3-7.7) k/uL Lymphocytes # (1.0-4.8) k/uL Lymphocytes # (Manual) (1.0-4.8) k/uL Monocytes # (0-1.0) k/uL Monocytes # (Manual) (0-1.0) k/uL Myelocytes # (Manual) (0) k/uL Sodium 135 L (137-145) mmol/L Alkaline Phosphatase 138 H (38-126) U/L Total Protein 4.6 L (6.3-8.2) g/dL Albumin 2.5 L (3.5-5.0) g/dL Amylase 533 H* (30-110) U/L Lipase 2794 H (23-300) U/L Laboratory Results WBC 25.3 k/uL (3.8-10.6) H 06/08/18 11:32 RBC 2.83 m/uL (4.30-5.90) L 06/08/18 11:32 Hgb 9.2 gm/dL (13.0-17.5) L 06/08/18 11:32 Hct 29.1 % (39.0-53.0) L 06/08/18 11:32 MCV 102.8 fL (80.0-100.0) H 06/08/18 11:32 MCH 32.4 pg (25.0-35.0) 06/08/18 11:32 MCHC 31.5 g/dL (31.0-37.0) 06/08/18 11:32 RDW 18.2 % (11.5-15.5) H 06/08/18 11:32 Plt Count 534 k/uL (150-450) H 06/08/18 11:32 Neutrophils % 87 % 06/08/18 02:20 Neutrophils % (Manual) 88 % 06/08/18 11:32 Lymphocytes % 3 % 06/08/18 02:20 Lymphocytes % (Manual) 3 % 06/08/18 11:32 Monocytes % 8 % 06/08/18 02:20 Monocytes % (Manual) 7 % 06/08/18 11:32 Eosinophils % 0 % 06/08/18 02:20 Basophils % 0 % 06/08/18 02:20 Myelocytes % 2 % 06/08/18 11:32 Neutrophils # 19.7 k/uL (1.3-7.7) H 06/08/18 02:20 Neutrophils # (Manual) 22.26 k/uL (1.3-7.7) H 06/08/18 11:32 Lymphocytes # 0.6 k/uL (1.0-4.8) L 06/08/18 02:20 Lymphocytes # (Manual) 0.76 k/uL (1.0-4.8) L 06/08/18 11:32 Monocytes # 1.8 k/uL (0-1.0) H 06/08/18 02:20 Monocytes # (Manual) 1.77 k/uL (0-1.0) H 06/08/18 11:32 Eosinophils # 0.0 k/uL (0-0.7) 06/08/18 02:20 Basophils # 0.1 k/uL (0-0.2) 06/08/18 02:20 Myelocytes # (Manual) 0.51 k/uL (0) H 06/08/18 11:32 Nucleated RBCs 0 /100 WBC (0-0) 06/08/18 11:32 Manual Slide Review Performed 06/08/18 11:32 Hypochromasia Marked 06/08/18 11:32 Poikilocytosis Slight 06/08/18 11:32 Anisocytosis Slight 06/08/18 11:32 Macrocytosis Moderate 06/08/18 11:32 Sodium 135 mmol/L (137-145) L 06/08/18 11:32 Potassium 4.8 mmol/L (3.5-5.1) 06/08/18 11:32 Chloride 104 mmol/L (98-107) 06/08/18 11:32 Carbon Dioxide 25 mmol/L (22-30) 06/08/18 11:32 Anion Gap 6 mmol/L 06/08/18 11:32 BUN 18 mg/dL (9-20) 06/08/18 11:32 Creatinine 0.73 mg/dL (0.66-1.25) 06/08/18 11:32 Est GFR (CKD-EPI)AfAm >90 (>60 ml/min/1.73 sqM) 06/08/18 11:32 Est GFR (CKD-EPI)NonAf >90 (>60 ml/min/1.73 sqM) 06/08/18 11:32 Glucose 77 mg/dL (74-99) 06/08/18 11:32 Plasma Lactic Acid Paddy 1.6 mmol/L (0.7-2.0) 06/08/18 02:20 Calcium 8.6 mg/dL (8.4-10.2) 06/08/18 11:32 Total Bilirubin 0.6 mg/dL (0.2-1.3) 06/08/18 11:32 AST 25 U/L (17-59) 06/08/18 11:32 ALT 21 U/L (21-72) 06/08/18 11:32 Alkaline Phosphatase 138 U/L (38-126) H 06/08/18 11:32 Total Protein 4.6 g/dL (6.3-8.2) L 06/08/18 11:32 Albumin 2.5 g/dL (3.5-5.0) L 06/08/18 11:32 Amylase 533 U/L (30-110) H* 06/08/18 11:32 Lipase 2794 U/L (23-300) H 06/08/18 11:32 CT scan - abdomen: report reviewed CT scan - chest: report reviewed (Patient has had a computed tomography scan of the chest abdomen pelvis performed. Review reveals evidence of resolution of the pneumonia. However there are now 2 new liver masses and evidence of carcinomatosis of the omentum and worsening ascites.) Assessment and Plan (1) Acute pancreatitis Current Visit: Yes Status: Acute Code(s): K85.90 - ACUTE PANCREATITIS WITHOUT NECROSIS OR INFECTION, UNSP SNOMED Code(s): 642928448 (2) Pancreatic cancer Current Visit: Yes Status: Acute Code(s): C25.9 - MALIGNANT NEOPLASM OF PANCREAS, UNSPECIFIED SNOMED Code(s): 290330961 (3) Leukocytosis Narrative/Plan: 60-year-old male who has a history of pancreatic cancer was recently rehospitalized at which point in time he had a left lower lobe infiltration. He has completed his course of oral antibiotic therapy but is developed increasing nausea and emesis and progressive abdominal pain. Upon presentation to emergency center the patient has evidence of pancreatitis with hydration as her starting to show some improvement. Patient continues feeling very poorly. The patient did undergo a computed tomography scan fortunately reveals evidence of resolution of his pneumonia. However does appear that his underlying malignancy has progressed with new liver masses and evidence of carcinomatosis of the omentum. And development of ascites. This information is related to the patient and the . The oncology nurse practitioner has also been updated. At this time there does not appear to be an underlying infection but does have leukocytosis and constantly is monitored closely. But without evidence of phlegmon of the pancreas there is no indication for antibiotic therapy at this point in time. Current Visit: Yes Status: Acute Code(s): D72.829 - ELEVATED WHITE BLOOD CELL COUNT, UNSPECIFIED SNOMED Code(s): 049663607
[2018-06-08] MEDS: URSODIOL 300 MG CAP PO SCH (22:55)
[2018-06-08] MEDS: APIXABAN 5 MG TAB PO SCH (22:55)
[2018-06-08] MEDS: DOCUSATE 100 MG CAP PO SCH (22:55)
[2018-06-08] MEDS: FLUTICASONE 50MCG/SPRAY NASAL 16GM EA NOSTRIL SCH (23:21)
[2018-06-08 23:22] LABS: Appearance,Urine Clear (Clear); Bacteria,Urine Rare /hpf; Bilirubin,Urine Negative (Negative); Blood,Urine Negative (Negative); Color,Urine Yellow; Glucose,Urine (UA) Negative (Negative); Ketones,Urine Negative (Negative); Leukocyte Esterase,Urine Negative (Negative); Mucus,Urine Many /hpf; Nitrite,Urine Negative (Negative); Protein,Urine 1+ (Negative); RBC,Urine 1 /hpf (0-5); Urobilinogen,Urine <2.0 mg/dL (<2.0); WBC,Urine 3 /hpf (0-5)
[2018-06-08 23:23] LABS: Specific Gravity,Urine >1.050 (1.001-1.035)
[2018-06-09] MEDS: SODIUM CHLORIDE 0.9% 1,000 ML IV SCH ×4 (03:13→23:39)
[2018-06-09] MEDS: HYDROmorphone 0.5 MG/0.5 ML SYRINGE IVP PRN ×4 (04:14→12:40)
[2018-06-09] MEDS: LEVOTHYROXINE 100 MCG TAB PO SCH (05:18)
[2018-06-09] MEDS: URSODIOL 300 MG CAP PO SCH ×2 (07:45→20:11)
[2018-06-09] MEDS: APIXABAN 5 MG TAB PO SCH (07:45)
[2018-06-09] MEDS: DOCUSATE 100 MG CAP PO SCH ×2 (07:45→20:11)
[2018-06-09] MEDS: FLUTICASONE 50MCG/SPRAY NASAL 16GM EA NOSTRIL SCH (07:46)
[2018-06-09 08:23] LABS: Anisocytosis Slight; HCT 29.1 % (39.0-53.0); HGB 8.9 gm/dL (13.0-17.5); Hypochromasia Marked; MCH 31.3 pg (25.0-35.0); MCHC 30.5 g/dL (31.0-37.0); MCV 102.5 fL (80.0-100.0); Macrocytosis Moderate; Mean Platelet Volume 6.5; Platelet Count 554 k/uL (150-450); Poikilocytosis Slight; RBC 2.84 m/uL (4.30-5.90); WBC 21.6 k/uL (3.8-10.6)
[2018-06-09 08:26] LABS: Anion Gap 5 mmol/L; Blood Urea Nitrogen 18 mg/dL (9-20); Calcium 8.3 mg/dL (8.4-10.2); Carbon Dioxide 23 mmol/L (22-30); Chloride 104 mmol/L (98-107); Glucose 101 mg/dL (74-99); Lipase 1463 U/L (23-300); Potassium 4.5 mmol/L (3.5-5.1); Sodium 132 mmol/L (137-145)
[2018-06-09] MEDS ORDERED: PROCHLORPERAZINE SUPPOSITORY 25 MG SUPP RECTAL PRN (13:02)
--- NOTE | 2018-06-09 13:03 | P.PN ---
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 Objective - Vital Signs Vital signs: Vital Signs Temp 98.8 F 06/09/18 07:00 Pulse 109 H 06/09/18 07:00 Resp 18 06/09/18 08:00 BP 137/89 06/09/18 07:00 Pulse Ox 94 L 06/09/18 07:00 Intake & Output 06/08/18 06/09/18 06/09/18 18:59 06:59 18:59 Output Total 1800 Balance -1800 Output: Urine 1100 Straight 700 Post Void Residual 700 Other: # Voids 1 - Exam On exam, alert and oriented x3. HEENT: Conjunctivae normal. eyes normal. NECK: No JVD. No thyroid enlargement. No LNs CARDIOVASCULAR: S1 and S2 heard RESPIRATION: Breath sounds diminished in the bases. No rhonchi or crackles. No bronchial breathing. ABDOMEN: Soft, tender and distended. No guarding. no masses palpable. No ascites, No hepatosplenomegaly.Bowel sounds heard. LEGS: Trace pedal edema more on the left NERVOUS SYSTEM: Cranial N 2-12 grossly normal. Moves all 4 limbs. No focal deficits. No sensory deficit. No signs of cerebellar dysfucntion. Skin: no ulcer no rash - Labs CBC & Chem 7: 06/09/18 08:05 06/09/18 08:00 Labs: Abnormal Lab Results - Last 24 Hours (Table) 06/08/18 06/09/18 06/09/18 Range/Units 22:40 08:00 08:05 WBC 21.6 H (3.8-10.6) k/uL RBC 2.84 L (4.30-5.90) m/uL Hgb 8.9 L (13.0-17.5) gm/dL Hct 29.1 L (39.0-53.0) % MCV 102.5 H (80.0-100.0) fL MCHC 30.5 L (31.0-37.0) g/dL RDW 18.0 H (11.5-15.5) % Plt Count 554 H (150-450) k/uL Sodium 132 L (137-145) mmol/L Glucose 101 H (74-99) mg/dL Calcium 8.3 L (8.4-10.2) mg/dL Lipase 1463 H (23-300) U/L Ur Specific [place] >1.050 H (1.001-1.035) Urine Protein 1+ H (Negative) Urine Bacteria Rare H (None) /hpf Urine Mucus Many H (None) /hpf Assessment and Plan Assessment: - Acute pancreatitis - History of pancreatic ampullary cancer with liver metastases - Urinary retention - History of PE - History of thyroid disorder - History of GERD Plan - Computed tomography scan shows increasing sinusitis omental metastases and new liver lesions. - very concerned of the patient's situation. Had a detailed discussion with Dr. Oliver. - Patient will be evaluated by hematology oncology tomorrow to see if he needs paracentesis - Patient had Molina placed yesterday for urinary retention. Explained to the that it could be because of the pain. The plan for now is to control the pain and control the pancreatitis and remove the Molina and see how he does. If he still having urinary retention, then urology can be consulted. - We'll continue the current pain management and current care - We'll follow the patient Time with Patient: Greater than 30
[2018-06-09] MEDS: POLYETHYLENE GLYCOL 3350 17 GM POWD.PACK PO SCH (15:16)
[2018-06-09] MEDS: HYDROmorphone 1 MG/ML 1 ML SYRINGE IVP PRN ×3 (15:17→23:36)
--- NOTE | 2018-06-09 23:24 | P.CONS ---
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 03/05/15 core biopsy of the liver lesion was positive for metastatic adenocarcinoma, consistent with pancreaticobiliary or upper GI primary. He initially had external biliary drain then subsequently had a metal internal biliary stent placement and mediport placement. 03/25/2015: Started [id number] 03/25/15. His Ca 19.9 was followed. 06/13/15 repeat liver MRI revealed possible progression of his disease and mFOLFOX was discontinued 07/02/15: Next Line treatment was started with gemzar/abraxane Follow up showed disease stability over time. - Gemzar/abraxane was held 11/05/15 due to fever and progressive neuropathy. - 11/2015 he was in hospital, found to have E Coli infection and obstruction of biliary stent. - He continued on f/u and did well on abraxane/gem until 04/17/[address] revealed new abdominal nodes and liver lesion. 04/28/16: He started onivyde/5FU - Follow up scans showed improvement in his disease, after 10 cycles 08/2016 - chemo held per patient request to have a break due to fatigue. Had obstruction of biliary stent in September 2016, ERCP done, sludge in metal stent so this was replaced with a plastic stent, no evidence of malignancy at that time. He continued on f/u without disease recurrence until 02/07 when LFTs increased, repeat 01/29/17 -CT CAP revealed evidence of disease progression in his liver. 02/05/17: He re-introduced gemzar as single agent - After 3 weekly treatments, Gemsar held due to biliary stent blockage and infection,was off treatment until February 2017, resumed 03/29/17. 05/28/17 CT revealed disease progression in the liver and abdominal nodes 06/14/17 he started gemzar/abraxane. - Treatment was interrupted several times due to recurrent biliary stent infection, last treatment was on 08/09/17. 08/23/17 CT CAP showed disease progression with enlarging liver mass, retroperitoneal nodes and ascites. 09/14/17 he resumed onyvide/5FU, 11/01/17 CT revealed stable to improving adenopathy, incidentally found to have bilateral PE, started eliquis. 11/15/17 he developed progressive vomiting, Dr. Taveras (GI) performed EGD, showed obstruction at duodenum, felt to be secondary to trauma from previous multiple stents, referred to [facility] and had a stent placed. 01/03/[address] CAP revealed improvement in his disease. His most recent image on 04/28/18 showed stable disease. only new finding mild pelvic ascites gastrohepatic lymph node increase from 1.3 to 1.6 05/06/18: Resumed Onyvide/5FU 05/09/18: Admitted for Influenza 05/25/18: Admitted for Fevers (T-MAx 102.8), Pneumonia 06/08/18: Admitted with abdominal pain, nausea, vomiting, increased abdominal distention. Elevated Lipase and Amylase CT C/A/P Rev. 3 New enlarged gastrohepatic lymph nodes 3.7x2.2 (at the largest), New Low Attenuation 2cm lesion at right hepatic and post hepatic lobe, increased overall abdominal/pelvic ascites and findings consistent with carcinamatosis Patient seen and evaluated today, he is still requiring ATC pain medication, unable to take deep breath in secondary to increasing abdominal ascites. BLE Edema present L>R (left chronically increased). EKG for tachycardia, Sinus tach - Reactive No BM 4+ days, I did initiate increased bowel regimen. He is unable to urinate, mcgrath catheter in place, Montesinos cultures are pending. 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 Hypothyroid. upper/lower bridges. PE X2 11/01/17.cataracts History of Any Multi-Drug Resistant Organisms: None Reported Past Surgical History: Hernia Repair, Tonsillectomy Additional Past Surgical History / Comment(s): 1979 Lt Testicle, lymph nodes removed along spine. Right Inguinal Hernia Repair x3 with mesh. has a power port. Hemorrhoidectomy (2011), Colonoscopy (Jan 2015), Titanium Stent in Pancreas (02/2015 @ [place]), Restent in 01/2016 ([facility])and in 2017 . ERCP'S. Power Port. duodenal stent for obstruction not malignant Past Anesthesia/Blood Transfusion Reactions: Previous Problems w/ Anesthesia Additional Past Anesthesia/Blood Transfusion Reaction / Comm: DIFFICULTY URINATING W/ HERNIA, HEMORRHOID SURGERIES. 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 He lives at home with his and son. There is a cat in the home. No recent travel or service. Smoking Status: Never smoker Past Alcohol Use History: None Reported Past Drug Use History: None Reported - Past Family History Mother Family Medical History: Cancer Additional Family Medical History / Comment(s): Cancer x 3, lived until age 89. Sister(s) Family Medical History: Cancer Additional Family Medical History / Comment(s): Breast cancer. Brother(s) Family Medical History: Cancer Father Family Medical History: Cancer Additional Family Medical History / Comment(s): Colon/bladder cancer x 3, at 94 Medications and Allergies Home Medications Medication Instructions Recorded Confirmed Type Fluticasone Nasal [place] [Flonase 2 spray EA NOSTRIL DAILY 05/23/16 06/08/18 History Nasal [place]] Ursodiol 300 mg PO BID 03/16/17 06/08/18 History Levothyroxine Sodium [Synthroid] 100 mcg PO DAILY 06/01/17 06/08/18 History Acetaminophen [Tylenol Extra 500 - 1,000 mg PO Q6H PRN 11/17/17 06/08/18 History Strength] Apixaban [Eliquis] 5 mg PO BID 11/17/17 06/08/18 History Nystatin 100,000 Unit/ml Susp 500,000 unit PO QID 01/16/18 06/08/18 History [Mycostatin Oral Susp] guaiFENesin [Mucinex] 600 mg PO DAILY 01/16/18 06/08/18 History Pantoprazole Sodium [Protonix] 40 mg PO BID #60 tablet. 02/07/18 06/08/18 Rx Docusate [Colace] 100 mg PO BID 05/08/18 06/08/18 History Megestrol Acetate [Megace] 800 mg PO DAILY 05/08/18 06/08/18 History Omeprazole 20 mg PO DAILY 05/08/18 06/08/18 History Polyethylene Glycol 3350 [Miralax] 17 gm PO DAILY PRN 05/08/18 06/08/18 History Prochlorperazine [Compazine] 10 mg PO Q6H PRN 06/08/18 06/08/18 History Allergies Allergy/AdvReac Type Severity Reaction Status Date / Time cefuroxime [From Ceftin] AdvReac PANCREATITI Verified 06/08/18 07:51 S morphine AdvReac BRADYCARDIC Verified 06/08/18 07:51 Physical Exam Vitals: Vital Signs Temp Pulse Resp BP Pulse Ox 06/09/18 07:00 98.8 F 109 H 18 137/89 94 L 06/09/18 00:42 98.4 F 104 H 16 127/84 95 06/08/18 19:23 98.6 F 110 H 16 139/86 95 06/08/18 14:04 98.7 F 120 H 16 134/79 94 L Intake and Output 06/08/18 06/09/18 06/09/18 22:59 06:59 14:59 Output Total 700 1100 Balance -700 -1100 Output: Urine 1100 Straight 700 Post Void Residual 700 Other: # Voids 1 Gen: Alert, Mild Distress with pain, relieved after breakthrough dilaudid given Head: NC/NT Neck: SUpple LN: No palpable lymph nodes cervical, supraclavicular, axillary, or submandibular Mouth: Scant thrush, Mild erythemia posterior pharynx Lungs: Diminished bibasilar bases, no wheezes or rhonchi. Mild increased effort noted with conversation Heart: Tachy APical 127 - Regular (EKG COnfirmed) Abdomen: Firm, DIstended, Tender to palpation Extremities: BLE Edema L>R Neuro: No sensory or motor deficits notes Psych: Anxious, conversation appropriate Results CBC & Chem 7: 06/09/18 08:05 06/09/18 08:00 Labs: Abnormal Lab Results - Last 24 Hours (Table) 06/08/18 06/08/18 06/08/18 Range/Units 11:32 11:32 22:40 WBC 25.3 H (3.8-10.6) k/uL RBC 2.83 L (4.30-5.90) m/uL Hgb 9.2 L (13.0-17.5) gm/dL Hct 29.1 L (39.0-53.0) % MCV 102.8 H (80.0-100.0) fL RDW 18.2 H (11.5-15.5) % Plt Count 534 H (150-450) k/uL Neutrophils # (Manual) 22.26 H (1.3-7.7) k/uL Lymphocytes # (Manual) 0.76 L (1.0-4.8) k/uL Monocytes # (Manual) 1.77 H (0-1.0) k/uL Myelocytes # (Manual) 0.51 H (0) k/uL Sodium 135 L (137-145) mmol/L Alkaline Phosphatase 138 H (38-126) U/L Total Protein 4.6 L (6.3-8.2) g/dL Albumin 2.5 L (3.5-5.0) g/dL Amylase 533 H* (30-110) U/L Lipase 2794 H (23-300) U/L Ur Specific [place] >1.050 H (1.001-1.035) Urine Protein 1+ H (Negative) Urine Bacteria Rare H (None) /hpf Urine Mucus Many H (None) /hpf CT scan - abdomen: report reviewed CT scan - chest: report reviewed CT scan - pelvis: report reviewed Assessment and Plan (1) Acute pancreatitis Current Visit: Yes Status: Acute Code(s): K85.90 - ACUTE PANCREATITIS WITHOUT NECROSIS OR INFECTION, UNSP SNOMED Code(s): 501731244 (2) Pancreatic cancer Current Visit: Yes Status: Acute Code(s): C25.9 - MALIGNANT NEOPLASM OF PANCREAS, UNSPECIFIED SNOMED Code(s): 672875026 (3) Elevated amylase and lipase Current Visit: No Status: Acute Priority: High Code(s): R74.8 - ABNORMAL LEVELS OF OTHER SERUM ENZYMES SNOMED Code(s): 435616081 (4) Ascites Current Visit: Yes Status: Acute Code(s): R18.8 - OTHER ASCITES SNOMED Code(s): 328383291 Plan: Assessment and Recommendations: Metastatic Pancreatic Cancer: - Recent CT scans 06/08/18 with probable progression; concern for new right hepatic and post hepatic lesions, new and enlarging gastrohepatic lymph nodes, concern for carcinamatosis, increased abdominal ascites. - Long discussion with patient and , Dr. Dominguez's recommendations for eval uation of clinical trials [facility] with Ronaldo Norris. Patient ans very apprehensive to seek clinical trial at this time and have contacted a second opinion physician in which they wish to meet prior to heading to [place]. - We will assist in medical records to [facility] and/or Second opinion to help expedite this evaluation Acute Pancreatitis: - Bowel rest and slow advancement of diet - GI is following - Serial Pancreatic Enzymes are trending down - IV Antibiotics Symptomatic Abdominal Ascites: - Eliquis has been placed on hold in anticipation of paracentesis, will ask for cytology and fluid studies on para fluid - I have contacted IR to assist in expediting this as he is quit symptomatic with pain and shortness of breath. Urinary Retentions: - Primary Team - Cultures Pending Neoplastic Related Pain: - Continue current breakthrough pain medication and symptom control Constipation: - Increased bowel regimen for narcotic induced constipation Recent Admissions for Influenza A and Pneumonia - Resolved HX: Pulmonary Embolism: - On Eliquis, Hold till after Paracentesis HX: Recurrent Biliary Stent Obstructions and Infections [facility] Attest: I have completed the full history and physical and agree with above dictation, dictated as a scribe
--- NOTE | 2018-06-09 23:30 | P.PN ---
Subjective Progress Note Date: 06/09/18 This is a 67-year-old male patient well known to ID service as he has had previous bouts of E. coli sepsis related to obstruction of his biliary track. 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 There is evidence of bilateral pulmonary emboli without much symptom is being treated with Eliquis. Patient gives history of influenza A with admission 05/09/2018. Patient states he recovered from the influenza but then developed a cough with thick white sputum production that has been going on for about one week. He also had 1 documented fever at home and came into [facility] emergency center for evaluation. He was febrile with a temperature 102.8, white count 1.5, creatinine 0.93. Lactic acid 3.5 and he is status post 3 L of IV fluid. Albumin 2.6. Influenza negative. Urinalysis was cloudy with calcium oxalate crystals, rare bacteria and hyaline casts. Chest x-ray a left lower lobe infiltration. The patient had some leukopenia which was improving as his pneumonia was treated. He was discharged home to complete a course of cefuroxime to be reevaluated for restarting his chemotherapy. Patient over was not feeling well with a couple of days. He developed some nausea and some emesis and poor oral intake. He had 3 doses of cefuroxime left and was requested to complete them if possible. The patient however now had worsening presented to the emergency center because his nausea and emesis or worsening was having some increasing abdominal pain. Amylase and lipase were elevated and calcium was admitted for treatment of pancreatitis with GI rest and hydration. Infectious diseases follow-up was requested. 06/09/2018 patient is feeling very poorly. Patient's is present. The case is discussed with oncology as well as gastroenterology. The patient is quite uncomfortable with the ascites and diagnostic and therapeutic paracentesis is likely to be done. The patient's Eliquis was placed on hold last evening. However it is related to the patient's insisted that he received his dose this morning and Eliquis was given. The patient also had developed some urinary retention and straight catheterization was performed the patient continued to have retention and Mol[place] catheter was placed. Still having sever abdominal pain some relief from Dilaudid. Objective - Vital Signs Vital signs: Vital Signs Temp 98.4 F 06/09/18 20:12 Pulse 111 H 06/09/18 20:12 Resp 17 06/09/18 20:12 BP 138/96 06/09/18 20:12 Pulse Ox 95 06/09/18 20:12 Intake & Output 06/09/18 06/09/18 06/10/18 06:59 18:59 06:59 Output Total 1800 300 Balance -1800 -300 Output: Urine 1100 300 Straight 700 Post Void Residual 700 Other: Voiding Method Indwelling Catheter Indwelling Catheter - Exam 68-year-old male appears chronically ill, complaining of abdominal pain and improving nausea HEENT: Anicteric conjunctiva are pink and moist nasal mucosa grossly intact without significant lesions, there is no thrush. Neck: The neck is supple without significant lymphadenopathy or thyromegaly. Lungs: Good bilateral air entry without significant crackles or wheezing. There is no significant bronchial sounds. There is no egophony or dullness. Heart: Regular rate and rhythm with an audible S1-S2, no S3 no S4. There is no significant murmur click or rub, PMI was nondisplaced. Abdomen: The abdomen is distended but soft generalized tenderness especially in the epigastrium Extremities: The upper extremities have excellent pulses they are symmetric, no significant petechiae or telangiectasia. No splinter hemorrhages were noted. Lower extremities with minimal edema Neuro: Awake alert oriented to person place and time. There are no acute new gross focal sensory motor deficits. - Labs CBC & Chem 7: 06/09/18 08:05 06/09/18 08:00 Labs: Abnormal Lab Results - Last 24 Hours (Table) 06/08/18 06/09/18 06/09/18 Range/Units 22:40 08:00 08:05 WBC 21.6 H (3.8-10.6) k/uL RBC 2.84 L (4.30-5.90) m/uL Hgb 8.9 L (13.0-17.5) gm/dL Hct 29.1 L (39.0-53.0) % MCV 102.5 H (80.0-100.0) fL MCHC 30.5 L (31.0-37.0) g/dL RDW 18.0 H (11.5-15.5) % Plt Count 554 H (150-450) k/uL Sodium 132 L (137-145) mmol/L Glucose 101 H (74-99) mg/dL Calcium 8.3 L (8.4-10.2) mg/dL Lipase 1463 H (23-300) U/L Ur Specific [place] >1.050 H (1.001-1.035) Urine Protein 1+ H (Negative) Urine Bacteria Rare H (None) /hpf Urine Mucus Many H (None) /hpf Microbiology - Last 24 Hours (Table) 06/08/18 15:40 Blood Culture - Preliminary Blood No Growth after 24 hours Assessment and Plan (1) Acute pancreatitis Current Visit: Yes Status: Acute Code(s): K85.90 - ACUTE PANCREATITIS WITHOUT NECROSIS OR INFECTION, UNSP SNOMED Code(s): 971071437 (2) Pancreatic cancer Current Visit: Yes Status: Acute Code(s): C25.9 - MALIGNANT NEOPLASM OF PANCREAS, UNSPECIFIED SNOMED Code(s): 697168329 (3) Leukocytosis Narrative/Plan: 60-year-old male who has a history of pancreatic cancer was recently rehospitalized at which point in time he had a left lower lobe infiltration. He has completed his course of oral antibiotic therapy but is developed increasing nausea and emesis and progressive abdominal pain. Upon presentation to emergency center the patient has evidence of pancreatitis with hydration as her starting to show some improvement. Patient continues feeling very poorly. The patient did undergo a computed tomography scan fortunately reveals evidence of resolution of his pneumonia. However does appear that his underlying malignancy has progressed with new liver masses and evidence of carcinomatosis of the omentum. And development of asc ites. This information is related to the patient and the . The oncology nurse practitioner has also been updated. At this time there does not appear to be an underlying infection but does have leukocytosis and constantly is monitored closely. But without evidence of phlegmon of the pancreas there is no indication for antibiotic therapy at this point in time. 06/09/2018 discussion occurred with the patient and the . Regretfully Eliquis was given today which will likely delay the therapeutic paracentesis. Which will also like to be a diagnostic for cytology. Pain control as per the oncology service. At this time remains without evidence of significant infection continue to monitor without antimicrobial therapy. No evidence of any phlegmon or pancreatic pseudocyst. Leukocytosis is multifactorial. Current Visit: Yes Status: Acute Code(s): D72.829 - ELEVATED WHITE BLOOD CELL COUNT, UNSPECIFIED SNOMED Code(s): 351340084
[2018-06-10] MEDS: HYDROmorphone 1 MG/ML 1 ML SYRINGE IVP PRN (03:41)
[2018-06-10] MEDS: HYDROmorphone 0.5 MG/0.5 ML SYRINGE IVP PRN (03:50)
[2018-06-10 05:33] LABS: Glucose,Whole Blood 75 mg/dL (75-99)
[2018-06-10 05:53] LABS: Anisocytosis Slight; Basophils % (A) 0 %; Eosinophils # (A) 0.1 k/uL (0-0.7); Eosinophils % (A) 1 %; HCT 32.3 % (39.0-53.0); HGB 9.7 gm/dL (13.0-17.5); Hypochromasia Marked; Lymphocytes # (A) 0.3 k/uL (1.0-4.8); Lymphocytes % (A) 2 %; MCH 31.5 pg (25.0-35.0); Macrocytosis Marked; Mean Platelet Volume 6.6; Monocytes # (A) 0.3 k/uL (0-1.0); Monocytes % (A) 2 %; Neutrophils # (A) 11.5 k/uL (1.3-7.7); Neutrophils % (A) 94 %; Platelet Count 630 k/uL (150-450); Poikilocytosis Slight; RBC 3.08 m/uL (4.30-5.90); RDW 18.4 % (11.5-15.5); WBC 12.2 k/uL (3.8-10.6)
[2018-06-10 06:05] LABS: ALT 34 U/L (21-72); AST 35 U/L (17-59); Albumin 2.4 g/dL (3.5-5.0); Alkaline Phosphatase 246 U/L (38-126); Anion Gap 10 mmol/L; Blood Urea Nitrogen 19 mg/dL (9-20); Calcium 8.8 mg/dL (8.4-10.2); Carbon Dioxide 17 mmol/L (22-30); Chloride 106 mmol/L (98-107); Glucose 64 mg/dL (74-99); Magnesium 1.7 mg/dL (1.6-2.3); Potassium 4.6 mmol/L (3.5-5.1); Sodium 133 mmol/L (137-145); Total Bilirubin 2.1 mg/dL (0.2-1.3); Total Protein 4.8 g/dL (6.3-8.2)
[2018-06-10] MEDS ORDERED: KETOROLAC 30 MG/ML 1 ML VIAL IVP PRN (06:12)
[2018-06-10] MEDS: ONDANSETRON 4 MG/2 ML VIAL IVP PRN (06:15)
[2018-06-10 07:01] LABS: Polychromasia Present
[2018-06-10 07:07] LABS: Large Platelets Present
[2018-06-10 07:09] LABS: Toxic Vacuolation Present
[2018-06-10] MEDS: LEVOTHYROXINE 100 MCG TAB PO SCH (07:18)
[2018-06-10] MEDS: SODIUM CHLORIDE 0.9% 1,000 ML IV SCH ×3 (08:33→13:18)
[2018-06-10] MEDS: POLYETHYLENE GLYCOL 3350 17 GM POWD.PACK PO SCH (08:44)
[2018-06-10] MEDS: FLUTICASONE 50MCG/SPRAY NASAL 16GM EA NOSTRIL SCH (08:46)
[2018-06-10] MEDS: DOCUSATE 100 MG CAP PO SCH ×2 (08:46→20:56)
[2018-06-10] MEDS ORDERED: SENNOSIDES-DOCUSATE SODIUM 1 EACH TAB PO SCH (09:00)
[2018-06-10] MEDS: HYDROmorphone 0.5 MG/0.5 ML SYRINGE IVP SCH ×4 (11:53→20:56)
[2018-06-10] MEDS: URSODIOL 300 MG CAP PO SCH ×2 (11:54→22:13)
[2018-06-10 12:45] LABS: Prothrombin Time 11.1 sec (9.0-12.0)
--- NOTE | 2018-06-10 14:03 | US ---
EXAMINATION TYPE: US abdomen limited DATE OF EXAM: 06/10/2018 COMPARISON: CT 06/08/2018 CLINICAL HISTORY: ascites; access for fluid. Small amount of ascites visualized, largest pocket visualized in the RUQ measuring 2.7 cm IMPRESSION: 1. Ascites
--- NOTE | 2018-06-10 15:26 | XR ---
EXAMINATION TYPE: XR chest 1V portable DATE OF EXAM: 06/10/2018 COMPARISON: 05/24/2018 INDICATION: Short of breath, pancreas cancer TECHNIQUE: Single frontal view of the chest is obtained. FINDINGS: The heart size is normal. The pulmonary vasculature is normal. Minimal left pleural effusion is present. This may be diminished from comparison Port is on the left with the tip in the superior vena cava right atrial junction region. IMPRESSION: 1. Small left pleural effusion. Some subsegmental atelectasis may be present adjacent. 2. Exam appears essentially stable from comparison.
--- NOTE | 2018-06-10 17:17 | P.PN ---
Subjective Progress Note Date: 06/10/18 This is a 67-year-old male patient well known to ID service as he has had previous bouts of E. coli sepsis related to obstruction of his biliary track. 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 There is evidence of bilateral pulmonary emboli without much symptom is being treated with Eliquis. Patient gives history of influenza A with admission 05/09/2018. Patient states he recovered from the influenza but then developed a cough with thick white sputum production that has been going on for about one week. He also had 1 documented fever at home and came into [facility] emergency center for evaluation. He was febrile with a temperature 102.8, white count 1.5, creatinine 0.93. Lactic acid 3.5 and he is status post 3 L of IV fluid. Albumin 2.6. Influenza negative. Urinalysis was cloudy with calcium oxalate crystals, rare bacteria and hyaline casts. Chest x-ray a left lower lobe infiltration. The patient had some leukopenia which was improving as his pneumonia was treated. He was discharged home to complete a course of cefuroxime to be reevaluated for restarting his chemotherapy. Patient over was not feeling well with a couple of days. He developed some nausea and some emesis and poor oral intake. He had 3 doses of cefuroxime left and was requested to complete them if possible. The patient however now had worsening presented to the emergency center because his nausea and emesis or worsening was having some increasing abdominal pain. Amylase and lipase were elevated and calcium was admitted for treatment of pancreatitis with GI rest and hydration. Infectious diseases follow-up was requested. 06/09/2018 patient is feeling very poorly. Patient's is present. The case is discussed with oncology as well as gastroenterology. The patient is quite uncomfortable with the ascites and diagnostic and therapeutic paracentesis is likely to be done. The patient's Eliquis was placed on hold last evening. However it is related to the patient's insisted that he received his dose this morning and Eliquis was given. The patient also had developed some urinary retention and straight catheterization was performed the patient continued to have retention and Molina catheter was placed. Still having sever abdominal pain some relief from Dilaudid. 06/10/2018 the patient did have an A-team called today. After 1.5 mg of Dilaudid that was given for his unremitting pain he developed hypotension and tachycardia and hypoxia. Responded well to treatment but was moved to selective care. It is noted ultrasound was performed which failed to reveal evidence of a large enough amount of ascites for paracentesis. Patient's pain has been very difficult and is now on a more regular schedule. Close monitoring for oversedation is in process. Objective - Vital Signs Vital signs: Vital Signs Temp 98 F 06/10/18 16:00 Pulse 105 H 06/10/18 16:00 Resp 18 06/10/18 16:00 BP 108/76 06/10/18 16:00 Pulse Ox 96 06/10/18 16:00 Intake & Output 06/09/18 06/10/18 06/10/18 18:59 06:59 18:59 Output Total 300 400 125 Balance -300 -400 -125 Output: Urine 300 400 125 Other: Voiding Method Indwelling Catheter Indwelling Catheter Indwelling Catheter - Exam 68-year-old male appears chronically ill, complaining of abdominal pain and improving nausea HEENT: Anicteric conjunctiva are pink and moist nasal mucosa grossly intact without significant lesions, there is no thrush. Neck: The neck is supple without significant lymphadenopathy or thyromegaly. Lungs: Good bilateral air entry without significant crackles or wheezing. There is no significant bronchial sounds. There is no egophony or dullness. Heart: Regular rate and rhythm with an audible S1-S2, no S3 no S4. There is no significant murmur click or rub, PMI was nondisplaced. Abdomen: The abdomen is distended but soft generalized tenderness especially in the epigastrium Extremities: The upper extremities have excellent pulses they are symmetric, no significant petechiae or telangiectasia. No splinter hemorrhages were noted. Lower extremities with minimal edema Neuro: Awake alert oriented still has some mild confusion but does not have new acute gross focal sensory motor deficits - Labs CBC & Chem 7: 06/10/18 05:43 06/10/18 05:43 Labs: Abnormal Lab Results - Last 24 Hours (Table) 06/10/18 06/10/18 06/10/18 Range/Units 05:43 05:43 05:43 WBC 12.2 H (3.8-10.6) k/uL RBC 3.08 L (4.30-5.90) m/uL Hgb 9.7 L (13.0-17.5) gm/dL Hct 32.3 L (39.0-53.0) % MCV 105.0 H (80.0-100.0) fL MCHC 30.0 L (31.0-37.0) g/dL RDW 18.4 H (11.5-15.5) % Plt Count 630 H (150-450) k/uL Neutrophils # 11.5 H (1.3-7.7) k/uL Lymphocytes # 0.3 L (1.0-4.8) k/uL Sodium 133 L (137-145) mmol/L Carbon Dioxide 17 L (22-30) mmol/L Glucose 64 L (74-99) mg/dL Total Bilirubin 2.1 H (0.2-1.3) mg/dL Alkaline Phosphatase 246 H (38-126) U/L Total Protein 4.8 L (6.3-8.2) g/dL Albumin 2.4 L (3.5-5.0) g/dL Lipase 776 H (23-300) U/L Microbiology - Last 24 Hours (Table) 06/08/18 15:40 Blood Culture - Preliminary Blood No Growth after 24 hours Laboratory Results WBC 12.2 k/uL (3.8-10.6) H 06/10/18 05:43 RBC 3.08 m/uL (4.30-5.90) L 06/10/18 05:43 Hgb 9.7 gm/dL (13.0-17.5) L 06/10/18 05:43 Hct 32.3 % (39.0-53.0) L 06/10/18 05:43 MCV 105.0 fL (80.0-100.0) H 06/10/18 05:43 MCH 31.5 pg (25.0-35.0) 06/10/18 05:43 MCHC 30.0 g/dL (31.0-37.0) L 06/10/18 05:43 RDW 18.4 % (11.5-15.5) H 06/10/18 05:43 Plt Count 630 k/uL (150-450) H 06/10/18 05:43 Neutrophils % 94 % 06/10/18 05:43 Neutrophils % (Manual) 88 % 06/08/18 11:32 Lymphocytes % 2 % 06/10/18 05:43 Lymphocytes % (Manual) 3 % 06/08/18 11:32 Monocytes % 2 % 06/10/18 05:43 Monocytes % (Manual) 7 % 06/08/18 11:32 Eosinophils % 1 % 06/10/18 05:43 Basophils % 0 % 06/10/18 05:43 Myelocytes % 2 % 06/08/18 11:32 Neutrophils # 11.5 k/uL (1.3-7.7) H 06/10/18 05:43 Neutrophils # (Manual) 22.26 k/uL (1.3-7.7) H 06/08/18 11:32 Lymphocytes # 0.3 k/uL (1.0-4.8) L 06/10/18 05:43 Lymphocytes # (Manual) 0.76 k/uL (1.0-4.8) L 06/08/18 11:32 Monocytes # 0.3 k/uL (0-1.0) 06/10/18 05:43 Monocytes # (Manual) 1.77 k/uL (0-1.0) H 06/08/18 11:32 Eosinophils # 0.1 k/uL (0-0.7) 06/10/18 05:43 Basophils # 0.0 k/uL (0-0.2) 06/10/18 05:43 Myelocytes # (Manual) 0.51 k/uL (0) H 06/08/18 11:32 Nucleated RBCs 0 /100 WBC (0-0) 06/08/18 11:32 Manual Slide Review Performed 06/10/18 05:43 Toxic Vacuolation Present 06/10/18 05:43 Large Platelets Present 06/10/18 05:43 Polychromasia Present 06/10/18 05:43 Hypochromasia Marked 06/10/18 05:43 Poikilocytosis Slight 06/10/18 05:43 Anisocytosis Slight 06/10/18 05:43 Macrocytosis Marked 06/10/18 05:43 PT 11.1 sec (9.0-12.0) 06/10/18 05:43 INR 1.0 (<1.2) 06/10/18 05:43 Sodium 133 mmol/L (137-145) L 06/10/18 05:43 Potassium 4.6 mmol/L (3.5-5.1) 06/10/18 05:43 Chloride 106 mmol/L (98-107) 06/10/18 05:43 Carbon Dioxide 17 mmol/L (22-30) L 06/10/18 05:43 Anion Gap 10 mmol/L 06/10/18 05:43 BUN 19 mg/dL (9-20) 06/10/18 05:43 Creatinine 0.79 mg/dL (0.66-1.25) 06/10/18 05:43 Est GFR (CKD-EPI)AfAm >90 (>60 ml/min/1.73 sqM) 06/10/18 05:43 Est GFR (CKD-EPI)NonAf >90 (>60 ml/min/1.73 sqM) 06/10/18 05:43 Glucose 64 mg/dL (74-99) L 06/10/18 05:43 POC Glucose (mg/dL) 75 mg/dL (75-99) 06/10/18 05:31 POC Glu [employer] TOM Velvet Locke 06/10/18 05:31 Plasma Lactic Acid Paddy 2.0 mmol/L (0.7-2.0) 06/10/18 05:43 Calcium 8.8 mg/dL (8.4-10.2) 06/10/18 05:43 Magnesium 1.7 mg/dL (1.6-2.3) 06/10/18 05:43 Total Bilirubin 2.1 mg/dL (0.2-1.3) H 06/10/18 05:43 AST 35 U/L (17-59) 06/10/18 05:43 ALT 34 U/L (21-72) 06/10/18 05:43 Alkaline Phosphatase 246 U/L (38-126) H 06/10/18 05:43 Ammonia 12 umol/L (<30) 06/10/18 05:43 Total Protein 4.8 g/dL (6.3-8.2) L 06/10/18 05:43 Albumin 2.4 g/dL (3.5-5.0) L 06/10/18 05:43 Amylase 533 U/L (30-110) H* 06/08/18 11:32 Lipase 776 U/L (23-300) H 06/10/18 05:43 Urine Color Yellow 06/08/18 22:40 Urine Appearance Clear (Clear) 06/08/18 22:40 Urine pH 6.0 (5.0-8.0) 06/08/18 22:40 Ur Specific [place] >1.050 (1.001-1.035) H 06/08/18 22:40 Urine Protein 1+ (Negative) H 06/08/18 22:40 Urine Glucose (UA) Negative (Negative) 06/08/18 22:40 Urine Ketones Negative (Negative) 06/08/18 22:40 Urine Blood Negative (Negative) 06/08/18 22:40 Urine Nitrite Negative (Negative) 06/08/18 22:40 Urine Bilirubin Negative (Negative) 06/08/18 22:40 Urine Urobilinogen <2.0 mg/dL (<2.0) 06/08/18 22:40 Ur Leukocyte Esterase Negative (Negative) 06/08/18 22:40 Urine RBC 1 /hpf (0-5) 06/08/18 22:40 Urine WBC 3 /hpf (0-5) 06/08/18 22:40 Urine Bacteria Rare /hpf (None) H 06/08/18 22:40 Urine Mucus Many /hpf (None) H 06/08/18 22:40 Microbiology 06/08/18 15:40 Blood Blood Culture - Preliminary No Growth after 24 hours Assessment and Plan (1) Acute pancreatitis Current Visit: Yes Status: Acute Code(s): K85.90 - ACUTE PANCREATITIS WITHOUT NECROSIS OR INFECTION, UNSP SNOMED Code(s): 758317157 (2) Pancreatic cancer Current Visit: Yes Status: Acute Code(s): C25.9 - MALIGNANT NEOPLASM OF PANCREAS, UNSPECIFIED SNOMED Code(s): 341954548 (3) Leukocytosis Narrative/Plan: 60-year-old male who has a history of pancreatic cancer was recently rehospitalized at which point in time he had a left lower lobe infiltration. He has completed his course of oral antibiotic therapy but is developed increasing nausea and emesis and progressive abdominal pain. Upon presentation to emergency center the patient has evidence of pancreatitis with hydration as her starting to show some improvement. Patient continues feeling very poorly. The patient did undergo a computed tomography scan fortunately reveals evidence of resolution of his pneumonia. However does appear that his underlying malignancy has progressed with new liver masses and evidence of carcinomatosis of the omentum. And development of ascites. This information is related to the patient and the . The oncology nurse practitioner has also been updated. At this time there does not appear to be an underlying infection but does have leukocytosis and constantly is zuleika tored closely. But without evidence of phlegmon of the pancreas there is no indication for antibiotic therapy at this point in time. 06/09/2018 discussion occurred with the patient and the . Regretfully Eliquis was given today which will likely delay the therapeutic paracentesis. Which will also like to be a diagnostic for cytology. Pain control as per the oncology service. At this time remains without evidence of significant infection continue to monitor without antimicrobial therapy. No evidence of any phlegmon or pancreatic pseudocyst. Leukocytosis is multifactorial. 06/10/2018 the patient's leukocytosis is now improved to 12 today. He did have an event with what appeared to be some excessive narcotic effect from the doses of Dilaudid for be given because of his significant pain. The dosing was increased significantly yesterday. He is now on a more scheduled smaller dose. Ultrasound was performed in the peritoneal fluid is too loculated for a peritoneal tap. I discussed the case with gastroenterology and will advance his diet as does appear that his pancreatitis symptomatically is improving. With lack of fever, improving leukocytosis does not appear to have underlying infection. However the total bilirubin did increase and will monitored to assure does not continue to climb. If so within need consideration of antibiotics because of his history of recurrent cholangitis. Patient's is working diligently for him to get discharged home so she can take him for a second opinion possibly for further chemotherapy. Current Visit: Yes Status: Acute Code(s): D72.829 - ELEVATED WHITE BLOOD CELL COUNT, UNSPECIFIED SNOMED Code(s): 691288213
--- NOTE | 2018-06-10 22:22 | P.PN ---
Subjective Progress Note Date: 06/10/18 Principal diagnosis: Pancreatic Cancer Episode of hypoxia, requiring oxygen overnight. He is still having significant pain in abdomen. at bedside. His urine output is decreased and BLE edema appears increased Objective - Vital Signs Vital signs: Vital Signs Temp 98 F 06/10/18 16:00 Pulse 105 H 06/10/18 16:00 Resp 18 06/10/18 16:00 BP 108/76 06/10/18 16:00 Pulse Ox 96 06/10/18 20:21 Intake & Output 06/10/18 06/10/18 06/11/18 06:59 18:59 06:59 Output Total 400 125 Balance -400 -125 Output: Urine 400 125 Other: Voiding Method Indwelling Catheter Indwelling Catheter - Exam Gen: Alert, Mild Distress with pain, relieved after breakthrough dilaudid given Head: NC/NT Mouth: Thrush thick tongue and posterior pharynx Neck: SUpple LN: No palpable lymph nodes cervical, supraclavicular, axillary, or submandibular Mouth: Scant thrush, Mild erythemia posterior pharynx Lungs: Diminished bibasilar bases, no wheezes or rhonchi. Mild increased effort noted with conversation Heart: Tachy APical 127 - Regular (EKG COnfirmed) Abdomen: Firm, DIstended, Tender to palpation Extremities: BLE Edema L>R Neuro: No sensory or motor deficits notes Psych: Anxious, conversation appropriate - Labs CBC & Chem 7: 06/10/18 05:43 06/10/18 05:43 Labs: Abnormal Lab Results - Last 24 Hours (Table) 06/10/18 06/10/18 06/10/18 Range/Units 05:43 05:43 05:43 WBC 12.2 H (3.8-10.6) k/uL RBC 3.08 L (4.30-5.90) m/uL Hgb 9.7 L (13.0-17.5) gm/dL Hct 32.3 L (39.0-53.0) % MCV 105.0 H (80.0-100.0) fL MCHC 30.0 L (31.0-37.0) g/dL RDW 18.4 H (11.5-15.5) % Plt Count 630 H (150-450) k/uL Neutrophils # 11.5 H (1.3-7.7) k/uL Lymphocytes # 0.3 L (1.0-4.8) k/uL Sodium 133 L (137-145) mmol/L Carbon Dioxide 17 L (22-30) mmol/L Glucose 64 L (74-99) mg/dL Total Bilirubin 2.1 H (0.2-1.3) mg/dL Alkaline Phosphatase 246 H (38-126) U/L Total Protein 4.8 L (6.3-8.2) g/dL Albumin 2.4 L (3.5-5.0) g/dL Lipase 776 H (23-300) U/L Microbiology - Last 24 Hours (Table) 06/08/18 15:40 Blood Culture - Preliminary Blood No Growth after 48 hours Assessment and Plan (1) Acute pancreatitis Current Visit: Yes Status: Acute Code(s): K85.90 - ACUTE PANCREATITIS WITHOUT NECROSIS OR INFECTION, UNSP SNOMED Code(s): 783379977 (2) Pancreatic cancer Current Visit: Yes Status: Acute Code(s): C25.9 - MALIGNANT NEOPLASM OF PANCREAS, UNSPECIFIED SNOMED Code(s): 802502862 (3) Elevated amylase and lipase Current Visit: No Status: Acute Priority: High Code(s): R74.8 - ABNORMAL LEVELS OF OTHER SERUM ENZYMES SNOMED Code(s): 266118971 (4) Ascites Current Visit: Yes Status: Acute Code(s): R18.8 - OTHER ASCITES SNOMED Code(s): 969984048 Plan: Assessment and Recommendations: Metastatic Pancreatic Cancer: - Recent CT scans 06/08/18 with probable progression; concern for new right hepatic and post hepatic lesions, new and enlarging gastrohepatic lymph nodes, concern for carcinamatosis, increased abdominal ascites. - Long discussion with patient and , Dr. Dominguez's recommendations for evaluation of clinical trials [facility] with Ronaldo Norris. Patient ans very apprehensive to seek clinical trial at this time and have contacted a second opinion physician in which they wish to meet prior to heading to [place]. - We will assist in medical records to [facility] and/or Second opinion to help expedite this evaluation Acute Pancreatitis: - Bowel rest and slow advancement of diet - GI is following - Serial Pancreatic Enzymes are trending down - IV Antibiotics Symptomatic Abdominal Ascites: - Eliquis has been placed on hold in anticipation of paracentesis, will ask for cytology and fluid studies on para fluid - I have contacted IR to assist in expediting this as he is quit symptomatic with pain and shortness of breath. - IR has attempted but due to lack of fluid unable to obtain fluid from peritoneum, feel this maybe secondary carcinamatosis Urinary Retentions: - Primary Team - Cultures Pending - Decreased urinary output - Urology has been consulted Neoplastic Related Pain: - Continue current breakthrough pain medication and symptom control Constipation: - Increased bowel regimen for narcotic induced constipation Recent Admissions for Influenza A and Pneumonia - Resolved HX: Pulmonary Embolism: - On Eliquis, Hold till after Paracentesis HX: Recurrent Biliary Stent Obstructions and Infections Acute Hypoxic respiratory Failure: - CHest Xray ordered - WIll re-adler culture - Patient placed up in chair to increase lung expansion seconday to increased abdominal distention PLan: - IR attempted to pull fluid off abdomen although unable to due to lack of ascites fluid - Abdominal Xray in am, monitor to ensure no obstructive bowel pattern - Chest Xray for increased respiratory need, 2Liter - Tachycardia Yuliana Fernandez AOCNP Physician Attest: I have completed the full history and physical and agree with above dictation, dictated as a scribe
[2018-06-10] MEDS ORDERED: FLUCONAZOLE 150 MG TAB PO ONE (22:30)
[2018-06-10] MEDS ORDERED: LORazepam 0.5 MG TAB PO ONE (22:50)
[2018-06-11] MEDS: HYDROmorphone 0.5 MG/0.5 ML SYRINGE IVP SCH ×8 (00:06→21:27)
[2018-06-11] MEDS: SODIUM CHLORIDE 0.9% 1,000 ML IV SCH ×3 (00:06→20:38)
[2018-06-11] MEDS: HYDROmorphone 0.5 MG/0.5 ML SYRINGE IVP PRN (01:47)
[2018-06-11] MEDS: LEVOTHYROXINE 100 MCG TAB PO SCH (06:05)
[2018-06-11 06:36] LABS: Anisocytosis Slight; Basophils % (A) 0 %; Eosinophils % (A) 0 %; HCT 27.8 % (39.0-53.0); HGB 8.7 gm/dL (13.0-17.5); Hypochromasia Marked; Lymphocytes # (A) 0.3 k/uL (1.0-4.8); Lymphocytes % (A) 1 %; MCH 32.7 pg (25.0-35.0); MCHC 31.1 g/dL (31.0-37.0); Macrocytosis Marked; Mean Platelet Volume 6.6; Monocytes # (A) 1.3 k/uL (0-1.0); Monocytes % (A) 6 %; Neutrophils # (A) 21.4 k/uL (1.3-7.7); Neutrophils % (A) 92 %; Platelet Count 567 k/uL (150-450); Poikilocytosis Slight; RBC 2.65 m/uL (4.30-5.90); RDW 18.1 % (11.5-15.5); WBC 23.4 k/uL (3.8-10.6)
[2018-06-11 06:52] LABS: Albumin 2.3 g/dL (3.5-5.0); Calcium 8.5 mg/dL (8.4-10.2); Potassium 4.9 mmol/L (3.5-5.1); Total Bilirubin 1.9 mg/dL (0.2-1.3); Total Protein 4.6 g/dL (6.3-8.2)
--- NOTE | 2018-06-11 07:50 | XR ---
EXAMINATION TYPE: XR abdomen 1V DATE OF EXAM: 06/11/2018 Comparison: Correlation CT 06/08/2018 Clinical History: 68-year-old male SBO Findings: Supine imaging limited for assessment of free air. Scattered small bowel and colonic gas is present. Moderate stool burden. No dilated small bowel loops are identified. A duodenal stent as well as metallic biliary stent are present with extensive surgic al clips throughout the abdomen. Impression: Nonspecific, overall nonobstructive bowel gas pattern. Moderate stool burden. Duodenal and metallic b iliary stents and additional extensive surgical clips throughout the abdomen.
[2018-06-11] MEDS: URSODIOL 300 MG CAP PO SCH ×2 (09:56→21:27)
[2018-06-11] MEDS: POLYETHYLENE GLYCOL 3350 17 GM POWD.PACK PO SCH (09:56)
[2018-06-11] MEDS: DOCUSATE 100 MG CAP PO SCH ×2 (09:56→20:57)
[2018-06-11] MEDS: APIXABAN 5 MG TAB PO SCH ×2 (09:56→20:57)
[2018-06-11] MEDS: FLUTICASONE 50MCG/SPRAY NASAL 16GM EA NOSTRIL SCH (10:02)
--- NOTE | 2018-06-11 14:28 | P.PN ---
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 admitted for pancreatitis with worsening ascites; patient had episodes of respiratory distress due to worsening ascites during the night; patient is being followed by oncology service and is scheduled for paracentesis this morning Vital signs; patient remains afebrile at 97.5; tachycardic with heart rate ranging between 125-129; blood pressure of 90/60 with SpO2 of 96% on 5 L Objective - Vital Signs Vital signs: Vital Signs Temp 97.5 F L 06/10/18 08:37 Pulse 129 H 06/10/18 08:37 Resp 18 06/10/18 08:37 BP 90/60 06/10/18 08:37 Pulse Ox 96 06/10/18 08:37 Intake & Output 06/09/18 06/10/18 06/10/18 18:59 06:59 18:59 Output Total 300 400 125 Balance -300 -400 -125 Output: Urine 300 400 125 Other: Voiding Method Indwelling Catheter Indwelling Catheter - Exam On exam, alert and oriented x3. HEENT: Conjunctivae normal. eyes normal. NECK: No JVD. No thyroid enlargement. No LNs CARDIOVASCULAR: S1 and S2 heard RESPIRATION: Breath sounds diminished in the bases. No rhonchi or crackles. No bronchial breathing. ABDOMEN: Soft, tender and distended. No guarding. no masses palpable. No ascites, No hepatosplenomegaly.Bowel sounds heard. LEGS: Trace pedal edema more on the left NERVOUS SYSTEM: Cranial N 2-12 grossly normal. Moves all 4 limbs. No focal deficits. No sensory deficit. No signs of cerebellar dysfucntion. Skin: no ulcer no rash - Labs CBC & Chem 7: 06/11/18 06:20 06/11/18 06:20 Labs: Abnormal Lab Results - Last 24 Hours (Table) 06/10/18 06/10/18 Range/Units 05:43 05:43 WBC 12.2 H (3.8-10.6) k/uL RBC 3.08 L (4.30-5.90) m/uL Hgb 9.7 L (13.0-17.5) gm/dL Hct 32.3 L (39.0-53.0) % MCV 105.0 H (80.0-100.0) fL MCHC 30.0 L (31.0-37.0) g/dL RDW 18.4 H (11.5-15.5) % Plt Count 630 H (150-450) k/uL Neutrophils # 11.5 H (1.3-7.7) k/uL Lymphocytes # 0.3 L (1.0-4.8) k/uL Sodium 133 L (137-145) mmol/L Carbon Dioxide 17 L (22-30) mmol/L Glucose 64 L (74-99) mg/dL Total Bilirubin 2.1 H (0.2-1.3) mg/dL Alkaline Phosphatase 246 H (38-126) U/L Total Protein 4.8 L (6.3-8.2) g/dL Albumin 2.4 L (3.5-5.0) g/dL Microbiology - Last 24 Hours (Table) 06/08/18 15:40 Blood Culture - Preliminary Blood No Growth after 24 hours Assessment and Plan Assessment: 1. Metastatic Pancreatic Cancer: - Recent CT scans 06/08/18 with probable progression; concern for new right hepatic and post hepatic lesions, new and enlarging gastrohepatic lymph nodes, concern for carcinamatosis, increased abdominal ascites. - Dr. Dominguez's recommendations for evaluation of clinical trials [facility] with Ronaldo Norris. Patient and very apprehensive to seek clinical trial at this time and have contacted a second opinion physician in which they wish to meet prior to heading to [place]. 2. Acute Pancreatitis: - Bowel rest and slow advancement of diet - GI is following - Serial Pancreatic Enzymes are trending down - IV Antibiotics 3. Symptomatic Abdominal Ascites: - Eliquis has been placed on hold in anticipation of paracentesis, cytology and fluid studies requested -Patient is scheduled for paracentesis this morning as he is quit symptomatic with pain and shortness of breath. 4. Urinary Retentions: - Molina catheter; plan is to remove once patient is stable for voiding trials - Urine is negative so far 5. Neoplastic Related Pain: -Patient had episodes of confusion last night secondary to Dilaudid; we will discontinue current dose of Dilaudid and Toradol since it's not providing any relief to patient; I had long discussion with patient and family and we have agreed to start patient on 0.5 mg of IV Dilaudid every 3 hours and make adjustments according to patient response 6. Constipation: - Increased bowel regimen for narcotic induced constipation 7. HX: Pulmonary Embolism: - On Eliquis, Hold till after Paracentesis 8. Recurrent Biliary Stent Obstructions and Infections; stable at this time 9. DVT prophylaxis; systemic anticoagulation with Eliquis; on hold for paracentesis today CODE STATUS; full code
--- NOTE | 2018-06-11 14:29 | P.GSCN ---
History of Present Illness Consult date: 06/11/18 Reason for Consult: Urinary retention Requesting physician: Yuliana Fernandez History of present illness: The patient is a 68-year-old white male with pancreatic ampullary carcinoma with liver metastases, admitted with acute pancreatitis. He has developed urinary retention, and now has an indwelling Molina catheter. Approximately 700 mL of urine was obtained upon catheter insertion. The patient denies any prior history of genitourinary disorder. He has never been told in the past that he has an enlarged prostate. Prior to this admission, he voided approximately every 2 hours, day and night. He sits to void, and for this reason is unable to determine how strong his strean is, though he indicates it is not weak. Review of Systems - Respiratory Reports dyspnea - Genitourinary Denies dysuria, Denies hematuria Past Medical History Past Medical History: Cancer, GERD/Reflux, Pulmonary Embolus (PE), Thyroid Disorder Additional Past Medical History / Comment(s): Testicular cancer 1979; Pancreatic Cancer (ampulla of lay), 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 Hypothyroid. upper/lower bridges. PE X2 11/01/17.cataracts History of Any Multi-Drug Resistant Organisms: None Reported Past Surgical History: Hernia Repair, Tonsillectomy Additional Past Surgical History / Comment(s): 1979 Lt Testicle, lymph nodes removed along spine. Right Inguinal Hernia Repair x3 with mesh. has a power port. Hemorrhoidectomy (2011), Colonoscopy (Jan 2015), Titanium Stent in Pancreas (02/2015 @ [place]), Restent in 01/2016 ([facility])and in 2017 . ERCP'S. Power Port. duodenal stent for obstruction not malignant Past Anesthesia/Blood Transfusion Reactions: Previous Problems w/ Anesthesia Additional Past Anesthesia/Blood Transfusion Reaction / Comm: DIFFICULTY URINATING W/ HERNIA, HEMORRHOID SURGERIES. 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 He lives at home with his and son. There is a cat in the home. No recent travel or service. Smoking Status: Never smoker Past Alcohol Use History: None Reported Past Drug Use History: None Reported - Past Family History Mother Family Medical History: Cancer Additional Family Medical History / Comment(s): Cancer x 3, lived until age 89. Sister(s) Family Medical History: Cancer Additional Family Medical History / Comment(s): Breast cancer. Brother(s) Family Medical History: Cancer Father Family Medical History: Cancer Additional Family Medical History / Comment(s): Colon/bladder cancer x 3, at 94 Medications and Allergies Home Medications Medication Instructions Recorded Confirmed Type Fluticasone Nasal Coleman [Flonase 2 spray EA NOSTRIL DAILY 05/23/16 06/08/18 History Nasal Coleman] Ursodiol 300 mg PO BID 03/16/17 06/08/18 History Levothyroxine Sodium [Synthroid] 100 mcg PO DAILY 06/01/17 06/08/18 History Acetaminophen [Tylenol Extra 500 - 1,000 mg PO Q6H PRN 11/17/17 06/08/18 History Strength] Apixaban [Eliquis] 5 mg PO BID 11/17/17 06/08/18 History Nystatin 100,000 Unit/ml Susp 500,000 unit PO QID 01/16/18 06/08/18 History [Mycostatin Oral Susp] guaiFENesin [Mucinex] 600 mg PO DAILY 01/16/18 06/08/18 History Pantoprazole Sodium [Protonix] 40 mg PO BID #60 tablet. 02/07/18 06/08/18 Rx Docusate [Colace] 100 mg PO BID 05/08/18 06/08/18 History Megestrol Acetate [Megace] 800 mg PO DAILY 05/08/18 06/08/18 History Omeprazole 20 mg PO DAILY 05/08/18 06/08/18 History Polyethylene Glycol 3350 [Miralax] 17 gm PO DAILY PRN 05/08/18 06/08/18 History Prochlorperazine [Compazine] 10 mg PO Q6H PRN 06/08/18 06/08/18 History Allergies Allergy/AdvReac Type Severity Reaction Status Date / Time cefuroxime [From Ceftin] AdvReac PANCREATITI Verified 06/08/18 07:51 S morphine AdvReac BRADYCARDIC Verified 06/08/18 07:51 Surgical - Exam Vital Signs Temp Pulse Resp BP Pulse Ox 99.2 F 136 H 20 120/77 97 06/08/18 00:03 06/08/18 00:03 06/08/18 00:03 06/08/18 00:03 06/08/18 00:03 - General well developed, well nourished, no distress - Abdomen Abdomen: soft, non tender, no guarding, no rigid, no rebound - Genitourinary normal penis with no external lesions, other (Normal right testicle. Mild penoscrotal edema.) left: testicle absent - Rectum Rectum: no masses, other (Prostate mildly enlarged but smooth) - Psychiatric oriented to time, oriented to person, oriented to place, speech is normal, memory intact Results - Labs 06/11/18 06:20 06/11/18 06:20 Abnormal Lab Results - Last 24 Hours (Table) 06/10/18 06/11/18 06/11/18 Range/Units 05:43 06:20 06:20 WBC 23.4 H (3.8-10.6) k/uL RBC 2.65 L (4.30-5.90) m/uL Hgb 8.7 L (13.0-17.5) gm/dL Hct 27.8 L (39.0-53.0) % MCV 105.0 H (80.0-100.0) fL RDW 18.1 H (11.5-15.5) % Plt Count 567 H (150-450) k/uL Neutrophils # 21.4 H (1.3-7.7) k/uL Lymphocytes # 0.3 L (1.0-4.8) k/uL Monocytes # 1.3 H (0-1.0) k/uL Sodium 131 L (137-145) mmol/L Carbon Dioxide 19 L (22-30) mmol/L BUN 28 H (9-20) mg/dL Creatinine 1.87 H (0.66-1.25) mg/dL Total Bilirubin 1.9 H (0.2-1.3) mg/dL Alkaline Phosphatase 224 H (38-126) U/L Total Protein 4.6 L (6.3-8.2) g/dL Albumin 2.3 L (3.5-5.0) g/dL Lipase 776 H 747 H (23-300) U/L Microbiology - Last 24 Hours (Table) 06/08/18 15:40 Blood Culture - Preliminary Blood No Growth after 48 hours Diabetes panel 06/11/18 Range/Units 06:20 Sodium 131 L (137-145) mmol/L Potassium 4.9 (3.5-5.1) mmol/L Chloride 103 (98-107) mmol/L Carbon Dioxide 19 L (22-30) mmol/L BUN 28 H (9-20) mg/dL Creatinine 1.87 H (0.66-1.25) mg/dL Glucose 86 (74-99) mg/dL Calcium 8.5 (8.4-10.2) mg/dL AST 52 (17-59) U/L ALT 35 (21-72) U/L Alkaline Phosphatase 224 H (38-126) U/L Total Protein 4.6 L (6.3-8.2) g/dL Albumin 2.3 L (3.5-5.0) g/dL Calcium panel 06/11/18 Range/Units 06:20 Calcium 8.5 (8.4-10.2) mg/dL Albumin 2.3 L (3.5-5.0) g/dL Pituitary panel 06/11/18 Range/Units 06:20 Sodium 131 L (137-145) mmol/L Potassium 4.9 (3.5-5.1) mmol/L Chloride 103 (98-107) mmol/L Carbon Dioxide 19 L (22-30) mmol/L BUN 28 H (9-20) mg/dL Creatinine 1.87 H (0.66-1.25) mg/dL Glucose 86 (74-99) mg/dL Calcium 8.5 (8.4-10.2) mg/dL Adrenal panel 06/11/18 Range/Units 06:20 Sodium 131 L (137-145) mmol/L Potassium 4.9 (3.5-5.1) mmol/L Chloride 103 (98-107) mmol/L Carbon Dioxide 19 L (22-30) mmol/L BUN 28 H (9-20) mg/dL Creatinine 1.87 H (0.66-1.25) mg/dL Glucose 86 (74-99) mg/dL Calcium 8.5 (8.4-10.2) mg/dL Total Bilirubin 1.9 H (0.2-1.3) mg/dL AST 52 (17-59) U/L ALT 35 (21-72) U/L Alkaline Phosphatase 224 H (38-126) U/L Total Protein 4.6 L (6.3-8.2) g/dL Albumin 2.3 L (3.5-5.0) g/dL Assessment and Plan (1) Retention of urine Current Visit: Yes Status: Acute Code(s): R33.9 - RETENTION OF URINE, UNSPECIFIED SNOMED Code(s): 375861417 Plan: I had a lengthy discussion with the patient and his regarding his urinary retention. For now, it would be my recommendation that the Molina catheter remain in place, as it may be beneficial for monitoring of urine output. I have prescribed tamsulosin, and the catheter may be removed for a voiding trial when no longer medically needed. Time with Patient: Greater than 30
[2018-06-11] MEDS: TAMSULOSIN 0.4 MG CAP.ER.24H PO SCH (14:55)
--- NOTE | 2018-06-11 15:16 | P.PN ---
Subjective Progress Note Date: 06/11/18 This is a 67-year-old male patient well known to ID service as he has had previous bouts of E. coli sepsis related to obstruction of his biliary track. 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 There is evidence of bilateral pulmonary emboli without much symptom is being treated with Eliquis. Patient gives history of influenza A with admission 05/09/2018. Patient states he recovered from the influenza but then developed a cough with thick white sputum production that has been going on for about one week. He also had 1 documented fever at home and came into [facility] emergency center for evaluation. He was febrile with a temperature 102.8, white count 1.5, creatinine 0.93. Lactic acid 3.5 and he is status post 3 L of IV fluid. Albumin 2.6. Influenza negative. Urinalysis was cloudy with calcium oxalate crystals, rare bacteria and hyaline casts. Chest x-ray a left lower lobe infiltration. The patient had some leukopenia which was improving as his pneumonia was treated. He was discharged home to complete a course of cefuroxime to be reevaluated for restarting his chemotherapy. Patient over was not feeling well with a couple of days. He developed some nausea and some emesis and poor oral intake. He had 3 doses of cefuroxime left and was requested to complete them if possible. The patient however now had worsening presented to the emergency center because his nausea and emesis or worsening was having some increasing abdominal pain. Amylase and lipase were elevated and calcium was admitted for treatment of pancreatitis with GI rest and hydration. Infectious diseases follow-up was requested. 06/09/2018 patient is feeling very poorly. Patient's is present. The case is discussed with oncology as well as gastroenterology. The patient is quite uncomfortable with the ascites and diagnostic and therapeutic paracentesis is likely to be done. The patient's Eliquis was placed on hold last evening. However it is related to the patient's insisted that he received his dose this morning and Eliquis was given. The patient also had developed some urinary retention and straight catheterization was performed the patient continued to have retention and Molina catheter was placed. Still having sever abdominal pain some relief from Dilaudid. 06/10/2018 the patient did have an A-team called today. After 1.5 mg of Dilaudid that was given for his unremitting pain he developed hypotension and tachycardia and hypoxia. Responded well to treatment but was moved to selective care. It is noted ultrasound was performed which failed to reveal evidence of a large enough amount of ascites for paracentesis. Patient's pain has been very difficult and is now on a more regular schedule. Close monitoring for oversedation is in process. 06/11/2018 patient continues to have ongoing difficulties. With the utilization of Dilaudid for his pain control he started becoming more unstable and although was in the room and assisting him he did suffer a fall. No particular injury occurred. The patient is no more short of breath after he's been examined by the urologist who found his enlarged prostate. Likely etiology of his urinary retention. However after bending for the procedure this is increased his dyspnea. The patient's is becoming upset because of her concerns about his status. Patient however remains without fever or chills. He has not developed jaundice. He is having no nausea or emesis but with his extensive abdominal distention has a very poor appetite. The diet was advanced and he is tolerating this quite well. Objective - Vital Signs Vital signs: Vital Signs Temp 98.1 F 06/11/18 12:00 Pulse 106 H 06/11/18 12:00 Resp 18 06/11/18 12:00 BP 138/94 06/11/18 12:00 Pulse Ox 98 06/11/18 12:00 Intake & Output 06/10/18 06/11/18 06/11/18 18:59 06:59 18:59 Intake Total 320 Output Total 125 10 Balance -125 310 Weight 95.5 kg Intake: Oral 320 Output: Urine 125 10 Other: Voiding Method Indwelling Catheter Indwelling Catheter Indwelling Catheter - Exam 68-year-old male appears chronically ill, complaining of abdominal pain and improving nausea HEENT: Anicteric conjunctiva are pink and moist nasal mucosa grossly intact without significant lesions, there is no thrush. Neck: The neck is supple without significant lymphadenopathy or thyromegaly. Lungs: Good bilateral air entry there is no snapping wheezing. There is evidence of decreased breath sounds in the left base and a few crackles at the left base, just few crackles at the right base. No deepali dullness is noted at this time. Heart: Regular rate and rhythm with an audible S1-S2, no S3 no S4. There is no significant murmur click or rub, PMI was nondisplaced. Abdomen: The abdomen is distended but soft generalized tenderness especially in the epigastrium Extremities: The upper extremities have excellent pulses they are symmetric, no significant petechiae or telangiectasia. No splinter hemorrhages were noted. Lower extremities have some increased edema but no open ulcerations are seen Neuro: Awake alert oriented still has some mild confusion but does not have new acute gross focal sensory motor deficits - Labs CBC & Chem 7: 06/11/18 06:20 06/11/18 06:20 Labs: Abnormal Lab Results - Last 24 Hours (Table) 06/11/18 06/11/18 Range/Units 06:20 06:20 WBC 23.4 H (3.8-10.6) k/uL RBC 2.65 L (4.30-5.90) m/uL Hgb 8.7 L (13.0-17.5) gm/dL Hct 27.8 L (39.0-53.0) % MCV 105.0 H (80.0-100.0) fL RDW 18.1 H (11.5-15.5) % Plt Count 567 H (150-450) k/uL Neutrophils # 21.4 H (1.3-7.7) k/uL Lymphocytes # 0.3 L (1.0-4.8) k/uL Monocytes # 1.3 H (0-1.0) k/uL Sodium 131 L (137-145) mmol/L Carbon Dioxide 19 L (22-30) mmol/L BUN 28 H (9-20) mg/dL Creatinine 1.87 H (0.66-1.25) mg/dL Total Bilirubin 1.9 H (0.2-1.3) mg/dL Alkaline Phosphatase 224 H (38-126) U/L Total Protein 4.6 L (6.3-8.2) g/dL Albumin 2.3 L (3.5-5.0) g/dL Lipase 747 H (23-300) U/L Microbiology - Last 24 Hours (Table) 06/08/18 15:40 Blood Culture - Preliminary Blood No Growth after 48 hours Laboratory Results WBC 23.4 k/uL (3.8-10.6) H 06/11/18 06:20 RBC 2.65 m/uL (4.30-5.90) L 06/11/18 06:20 Hgb 8.7 gm/dL (13.0-17.5) L 06/11/18 06:20 Hct 27.8 % (39.0-53.0) L 06/11/18 06:20 MCV 105.0 fL (80.0-100.0) H 06/11/18 06:20 MCH 32.7 pg (25.0-35.0) 06/11/18 06:20 MCHC 31.1 g/dL (31.0-37.0) 06/11/18 06:20 RDW 18.1 % (11.5-15.5) H 06/11/18 06:20 Plt Count 567 k/uL (150-450) H 06/11/18 06:20 Neutrophils % 92 % 06/11/18 06:20 Neutrophils % (Manual) 88 % 06/08/18 11:32 Lymphocytes % 1 % 06/11/18 06:20 Lymphocytes % (Manual) 3 % 06/08/18 11:32 Monocytes % 6 % 06/11/18 06:20 Monocytes % (Manual) 7 % 06/08/18 11:32 Eosinophils % 0 % 06/11/18 06:20 Basophils % 0 % 06/11/18 06:20 Myelocytes % 2 % 06/08/18 11:32 Neutrophils # 21.4 k/uL (1.3-7.7) H 06/11/18 06:20 Neutrophils # (Manual) 22.26 k/uL (1.3-7.7) H 06/08/18 11:32 Lymphocytes # 0.3 k/uL (1.0-4.8) L 06/11/18 06:20 Lymphocytes # (Manual) 0.76 k/uL (1.0-4.8) L 06/08/18 11:32 Monocytes # 1.3 k/uL (0-1.0) H 06/11/18 06:20 Monocytes # (Manual) 1.77 k/uL (0-1.0) H 06/08/18 11:32 Eosinophils # 0.0 k/uL (0-0.7) 06/11/18 06:20 Basophils # 0.0 k/uL (0-0.2) 06/11/18 06:20 Myelocytes # (Manual) 0.51 k/uL (0) H 06/08/18 11:32 Nucleated RBCs 0 /100 WBC (0-0) 06/08/18 11:32 Manual Slide Review Performed 06/10/18 05:43 Toxic Vacuolation Present 06/10/18 05:43 Large Platelets Present 06/10/18 05:43 Polychromasia Present 06/10/18 05:43 Hypochromasia Marked 06/11/18 06:20 Poikilocytosis Slight 06/11/18 06:20 Anisocytosis Slight 06/11/18 06:20 Macrocytosis Marked 06/11/18 06:20 PT 11.1 sec (9.0-12.0) 06/10/18 05:43 INR 1.0 (<1.2) 06/10/18 05:43 Sodium 131 mmol/L (137-145) L 06/11/18 06:20 Potassium 4.9 mmol/L (3.5-5.1) 06/11/18 06:20 Chloride 103 mmol/L (98-107) 06/11/18 06:20 Carbon Dioxide 19 mmol/L (22-30) L 06/11/18 06:20 Anion Gap 9 mmol/L 06/11/18 06:20 BUN 28 mg/dL (9-20) H 06/11/18 06:20 Creatinine 1.87 mg/dL (0.66-1.25) H 06/11/18 06:20 Est GFR (CKD-EPI)AfAm 42 (>60 ml/min/1.73 sqM) 06/11/18 06:20 Est GFR (CKD-EPI)NonAf 36 (>60 ml/min/1.73 sqM) 06/11/18 06:20 Glucose 86 mg/dL (74-99) 06/11/18 06:20 POC Glucose (mg/dL) 75 mg/dL (75-99) 06/10/18 05:31 POC Glu Cal[employer] TOM Velvet Locke 06/10/18 05:31 Plasma Lactic Acid Paddy 2.0 mmol/L (0.7-2.0) 06/10/18 05:43 Calcium 8.5 mg/dL (8.4-10.2) 06/11/18 06:20 Magnesium 1.7 mg/dL (1.6-2.3) 06/10/18 05:43 Total Bilirubin 1.9 mg/dL (0.2-1.3) H 06/11/18 06:20 AST 52 U/L (17-59) 06/11/18 06:20 ALT 35 U/L (21-72) 06/11/18 06:20 Alkaline Phosphatase 224 U/L (38-126) H 06/11/18 06:20 Ammonia 12 umol/L (<30) 06/10/18 05:43 Total Protein 4.6 g/dL (6.3-8.2) L 06/11/18 06:20 Albumin 2.3 g/dL (3.5-5.0) L 06/11/18 06:20 Amylase 533 U/L (30-110) H* 06/08/18 11:32 Lipase 747 U/L (23-300) H 06/11/18 06:20 Urine Color Yellow 06/08/18 22:40 Urine Appearance Clear (Clear) 06/08/18 22:40 Urine pH 6.0 (5.0-8.0) 06/08/18 22:40 Ur Specific [place] >1.050 (1.001-1.035) H 06/08/18 22:40 Urine Protein 1+ (Negative) H 06/08/18 22:40 Urine Glucose (UA) Negative (Negative) 06/08/18 22:40 Urine Ketones Negative (Negative) 06/08/18 22:40 Urine Blood Negative (Negative) 06/08/18 22:40 Urine Nitrite Negative (Negative) 06/08/18 22:40 Urine Bilirubin Negative (Negative) 06/08/18 22:40 Urine Urobilinogen <2.0 mg/dL (<2.0) 06/08/18 22:40 Ur Leukocyte Esterase Negative (Negative) 06/08/18 22:40 Urine RBC 1 /hpf (0-5) 06/08/18 22:40 Urine WBC 3 /hpf (0-5) 06/08/18 22:40 Urine Bacteria Rare /hpf (None) H 06/08/18 22:40 Urine Mucus Many /hpf (None) H 06/08/18 22:40 Microbiology 06/08/18 15:40 Blood Blood Culture - Preliminary No Growth after 48 hours Assessment and Plan (1) Acute pancreatitis Current Visit: Yes Status: Acute Code(s): K85.90 - ACUTE PANCREATITIS WITHOUT NECROSIS OR INFECTION, UNSP SNOMED Code(s): 858192470 (2) Pancreatic cancer Current Visit: Yes Status: Acute Code(s): C25.9 - MALIGNANT NEOPLASM OF PANCREAS, UNSPECIFIED SNOMED Code(s): 339872700 (3) Leukocytosis Narrative/Plan: 60-year-old male who has a history of pancreatic cancer was recently rehospitalized at which point in time he had a left lower lobe infiltration. He has completed his course of oral antibiotic therapy but is developed increasing nausea and emesis and progressive abdominal pain. Upon presentation to emergency center the patient has evidence of pancreatitis with hydration as her starting to show some improvement. Patient continues feeling very poorly. The patient did undergo a computed tomography scan fortunately reveals evidence of resolution of his pneumonia. However does appear that his underlying malignancy has progressed with new liver masses and evidence of carcinomatosis of the omentum. And development of ascites. This information is related to the patient and the . The oncology nurse practitioner has also been updated. At this time there does not appear to be an underlying infection but does have leukocytosis and constantly is mo nitored closely. But without evidence of phlegmon of the pancreas there is no indication for antibiotic therapy at this point in time. 06/09/2018 discussion occurred with the patient and the . Regretfully Eliquis was given today which will likely delay the therapeutic paracentesis. Which will also like to be a diagnostic for cytology. Pain control as per the oncology service. At this time remains without evidence of significant infection continue to monitor without antimicrobial therapy. No evidence of any phlegmon or pancreatic pseudocyst. Leukocytosis is multifactorial. 06/10/2018 the patient's leukocytosis is now improved to 12 today. He did have an event with what appeared to be some excessive narcotic effect from the doses of Dilaudid for be given because of his significant pain. The dosing was increased significantly yesterday. He is now on a more scheduled smaller dose. Ultrasound was performed in the peritoneal fluid is too loculated for a peritoneal tap. I discussed the case with gastroenterology and will advance his diet as does appear that his pancreatitis symptomatically is improving. With lack of fever, improving leukocytosis does not appear to have underlying infection. However the total bilirubin did increase and will monitored to assure does not continue to climb. If so within need consideration of antibiotics because of his history of recurrent cholangitis. Patient's is working diligently for him to get discharged home so she can take him for a second opinion possibly for further chemotherapy. 06/11/2018 patient continues to feel poorly. His shortness of breath is waxing and waning it is now considerably worse after his prostate exam which required him to bend which resulted in some compression to his diaphragms resulting in some residual and ongoing shortness of breath. He has had improvement with the shortness of breath and pains with Dilaudid and another doses given at this time. The patient has had difficulty with increased creatinine and consequently is receiving some fluids trying to improve his renal function. It is explained to the patient's that Lasix will help remove some fluid however these have improved intravascular volume for diuretic is given so no further damage is done. Patient's oxygen saturation is 99% on 2 L, oxygen has helped relieve his shortness of breath some. The patient is being closely monitored by his oncologist and the primary staff. There was some difficulties with his [place] morning is now been readjusted and he is much more comfortable. Laboratory count is waxing and waning in today is again increased to 23.4 it was 12.2. The creatinine did go from 0.79-1.87. Total bilirubin decreased to 1.9 and lipase was down to 747. His chest x-ray showed evidence of the left pleural effusion without evidence of new pneumonic infiltration. An abdominal x-ray failed to reveal a small bowel obstruction. This information is related and will continue to monitor for any concerns to underlying infection. Current Visit: Yes Status: Acute Code(s): D72.829 - ELEVATED WHITE BLOOD CELL COUNT, UNSPECIFIED SNOMED Code(s): 947245141
[2018-06-12] MEDS: HYDROmorphone 0.5 MG/0.5 ML SYRINGE IVP SCH ×5 (00:49→12:44)
[2018-06-12] MEDS: IPRATROPIUM-ALBUTEROL 3 ML NEB INHALATION PRN ×2 (01:07→19:59)
--- NOTE | 2018-06-12 01:21 | XR ---
EXAM: XR Chest, 1 View CLINICAL HISTORY: ITS.REASON XR Reason: cough/wheezing TECHNIQUE: Frontal view of the chest. COMPARISON: 06/10/18 chest x-ray IMPRESSION: Cardiomegaly. Left pleural effusion. Left central line terminates in the cavoatrial junction.
[2018-06-12] MEDS ORDERED: FUROSEMIDE 10 MG/ML 4 ML VIAL IV STA (01:49)
[2018-06-12] MEDS: LORazepam 2 MG/ML INJ IV PRN (01:58)
[2018-06-12] MEDS: MELATONIN 3 MG TABLET PO SCH ×2 (02:05→21:40)
--- NOTE | 2018-06-12 03:14 | CT ---
EXAM: CT Head Without Intravenous Contrast CLINICAL HISTORY: ITS.REASON CT Reason: confusion/headache TECHNIQUE: Axial computed tomography images of the head/brain without intravenous contrast. CTDI is 49 mGy and DLP is 1170 mGy-cm. This CT exam was performed using one or more of the following dose reduction techniques: automated exposure control, adjustment of the mA and/or kV according to patient size, and/or use of iterative reconstruction technique. COMPARISON: No relevant prior studies available. FINDINGS: Brain: No hemorrhage, large hypodensity, or mass effect. Chronic microvascular ischemic changes. Ventricles: No hydrocephalus. Age-appropriate cerebral volume loss. Bones/joints: Unremarkable. Soft tissues: Unremarkable. Sinuses: Unremarkable. Mastoid air cells: Clear. IMPRESSION: No acute hemorrhage, hydrocephalus, or mass effect.
[2018-06-12] MEDS: LEVOTHYROXINE 100 MCG TAB PO SCH (06:29)
[2018-06-12] MEDS: ONDANSETRON 4 MG/2 ML VIAL IVP PRN (08:41)
[2018-06-12] MEDS ORDERED: BISACODYL 5 MG TABLET.DR PO STA (09:16)
[2018-06-12] MEDS: TAMSULOSIN 0.4 MG CAP.ER.24H PO SCH (09:17)
[2018-06-12] MEDS: URSODIOL 300 MG CAP PO SCH ×2 (09:18→21:41)
[2018-06-12] MEDS: DOCUSATE 100 MG CAP PO SCH ×2 (09:18→21:40)
[2018-06-12] MEDS: APIXABAN 5 MG TAB PO SCH ×2 (09:18→21:42)
[2018-06-12] MEDS: FLUTICASONE 50MCG/SPRAY NASAL 16GM EA NOSTRIL SCH (09:34)
[2018-06-12] MEDS: POLYETHYLENE GLYCOL 3350 17 GM POWD.PACK PO SCH (09:34)
[2018-06-12 10:49] LABS: Albumin 2.2 g/dL (3.5-5.0); Calcium 8.2 mg/dL (8.4-10.2); Potassium 4.2 mmol/L (3.5-5.1); Total Bilirubin 2.7 mg/dL (0.2-1.3); Total Protein 4.6 g/dL (6.3-8.2)
--- NOTE | 2018-06-12 11:16 | P.PN ---
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 admitted for pancreatitis with worsening ascites; patient had episodes of respiratory distress due to worsening ascites during the night; patient is being followed by oncology service and is scheduled for paracentesis this morning Vital signs; patient remains afebrile at 97.5; tachycardic with heart rate ranging between 125-129; blood pressure of 90/60 with SpO2 of 96% on 5 L 06/11/2018 Patient is seen and evaluated in the room with at bedside; continues to be concerned about urinary retention; Molina catheter remains in place; patient has been evaluated by urology and is recommended to continue with Molina catheter for monitoring of urine output; patient is started on Flomax and recommendation is to remove the catheter after voiding trial if no longer medically needed Vital signs remained stable with a temperature of 98.1, pulse 106, respiration 18 and blood pressure of 138/94; SpO2 of 98% on room air Labs review show an upward trend up a white blood count of 23.4; hemoglobin down to 8.7 and worsening of B UN/creatinine from 19/0.79 yesterday to 28/1.87 this morning; total bilirubin is down to 1.9 and lipase of 747; patient is currently not on any IV antibiotics; ID is on board; await further recommendations Ultrasound of abdomen shows loculation of peritoneal fluid Objective - Vital Signs Vital signs: Vital Signs Temp 98.1 F 06/11/18 12:00 Pulse 106 H 06/11/18 12:00 Resp 18 06/11/18 12:00 BP 138/94 06/11/18 12:00 Pulse Ox 98 06/11/18 12:00 Intake & Output 06/10/18 06/11/18 06/11/18 18:59 06:59 18:59 Intake Total 320 Output Total 125 10 Balance -125 310 Weight 95.5 kg Intake: Oral 320 Output: Urine 125 10 Other: Voiding Method Indwelling Catheter Indwelling Catheter - Exam On exam, alert and oriented x3. HEENT: Conjunctivae normal. eyes normal. NECK: No JVD. No thyroid enlargement. No LNs CARDIOVASCULAR: S1 and S2 heard RESPIRATION: Breath sounds diminished in the bases. No rhonchi or crackles. No bronchial breathing. ABDOMEN: Soft, tender and distended. No guarding. no masses palpable. No ascites, No hepatosplenomegaly.Bowel sounds heard. LEGS: Trace pedal edema more on the left NERVOUS SYSTEM: Cranial N 2-12 grossly normal. Moves all 4 limbs. No focal deficits. No sensory deficit. No signs of cerebellar dysfucntion. Skin: no ulcer no rash - Labs CBC & Chem 7: 06/11/18 06:20 06/11/18 06:20 Labs: Abnormal Lab Results - Last 24 Hours (Table) 06/10/18 06/11/18 06/11/18 Range/Units 05:43 06:20 06:20 WBC 23.4 H (3.8-10.6) k/uL RBC 2.65 L (4.30-5.90) m/uL Hgb 8.7 L (13.0-17.5) gm/dL Hct 27.8 L (39.0-53.0) % MCV 105.0 H (80.0-100.0) fL RDW 18.1 H (11.5-15.5) % Plt Count 567 H (150-450) k/uL Neutrophils # 21.4 H (1.3-7.7) k/uL Lymphocytes # 0.3 L (1.0-4.8) k/uL Monocytes # 1.3 H (0-1.0) k/uL Sodium 131 L (137-145) mmol/L Carbon Dioxide 19 L (22-30) mmol/L BUN 28 H (9-20) mg/dL Creatinine 1.87 H (0.66-1.25) mg/dL Total Bilirubin 1.9 H (0.2-1.3) mg/dL Alkaline Phosphatase 224 H (38-126) U/L Total Protein 4.6 L (6.3-8.2) g/dL Albumin 2.3 L (3.5-5.0) g/dL Lipase 776 H 747 H (23-300) U/L Microbiology - Last 24 Hours (Table) 06/08/18 15:40 Blood Culture - Preliminary Blood No Growth after 48 hours Assessment and Plan Assessment: 1. Metastatic Pancreatic Cancer: - Recent CT scans 06/08/18 with probable progression; concern for new right hepatic and post hepatic lesions, new and enlarging gastrohepatic lymph nodes, concern for carcinamatosis, increased abdominal ascites. - Dr. Dominguez's recommendations for evaluation of clinical trials [facility] with Ronaldo Norris. Patient and very apprehensive to seek clinical trial at this time and have contacted a second opinion physician in which they wish to meet prior to heading to [place]. 2. Acute Pancreatitis: - Bowel rest and slow advancement of diet - GI is following - Serial Pancreatic Enzymes are trending down - IV Antibiotics 3. Symptomatic Abdominal Ascites: - Eliquis has been placed on hold in anticipation of paracentesis, cytology and fluid studies requested -Patient is scheduled for paracentesis this morning as he is quit symptomatic with pain and shortness of breath. 4. Urinary Retentions: - Molina catheter; plan is to remove once patient is stable for voiding trials - Urine is negative so far 5. Neoplastic Related Pain: -Patient had episodes of confusion last night secondary to Dilaudid; we will discontinue current dose of Dilaudid and Toradol since it's not providing any relief to patient; I had long discussion with patient and family and we have agreed to start patient on 0.5 mg of IV Dilaudid every 3 hours and make adjustments according to patient response 6. Constipation: - Increased bowel regimen for narcotic induced constipation 7. HX: Pulmonary Embolism: - On Eliquis, Hold till after Paracentesis 8. Recurrent Biliary Stent Obstructions and Infections; stable at this time 9. DVT prophylaxis; systemic anticoagulation with Eliquis; on hold for paracentesis today CODE STATUS; full code Time with Patient: Greater than 30
--- NOTE | 2018-06-12 11:32 | P.NPCON ---
History of Present Illness - Reason for Consult Consult date: 06/12/18 acute renal failure - Chief Complaint Acute kidney injury - History of Present Illness This is a 68-year-old male seen in consultation because of acute kidney injury. He had a CAT scan of the abdomen on 06/08/2018 with intravenous contrast. His creatinine was normal until 2 days later when his urine output been done. In the interim on the and also received 1 dose of Toradol. He is getting somewhat confused because of pain medications which have been discontinued. He has fair amount of edema. He was given 1 dose of Lasix. His vital signs have been stable no hypotensive. No other nephrotoxic medication. No nausea vomiting diarrhea. No fever chills cough shortness of breath or chest pain. History of present illness This very pleasant 68-year-old gentleman with a past medical history significant for pancreatic ampullary carcinoma with liver metastases who had biliary and duo denal stenting in the past and few episodes of hepatitis before, comes in with above-mentioned complaints. Patient says that a few weeks ago he had influenza and pneumonia he was admitted and discharged last week on antibiotic cefuroxime. According to the , he started having nausea vomiting, bloating and abdominal pain few days after starting the antibiotics. Symptoms worsened few days ago that's why the patient came into the ER for further lotion management. His past history significant for metastatic pancreatic cancer with liver metastases and omental metastases, remote history of testicular cancer, stent in the pancreas. Past Medical History Past Medical History: Cancer, GERD/Reflux, Pulmonary Embolus (PE), Thyroid Disorder Additional Past Medical History / Comment(s): Testicular cancer 1979; Pancreatic Cancer (ampulla of lay), 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 Hypothyroid. upper/lower bridges. PE X2 11/01/17.cataracts History of Any Multi-Drug Resistant Organisms: None Reported Past Surgical History: Hernia Repair, Tonsillectomy Additional Past Surgical History / Comment(s): 1979 Lt Testicle, lymph nodes removed along spine. Right Inguinal Hernia Repair x3 with mesh. has a power port. Hemorrhoidectomy (2011), Colonoscopy (Jan 2015), Titanium Stent in Pancreas (02/2015 @ [place]), Restent in 01/2016 ([facility])and in 2017 . ERCP'S. Power Port. 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 He lives at home with his and son. There is a cat in the home. No recent travel or service. Smoking Status: Never smoker Past Alcohol Use History: None Reported Past Drug Use History: None Reported - Past Family History Mother Family Medical History: Cancer Additional Family Medical History / Comment(s): Cancer x 3, lived until age 89. Sister(s) Family Medical History: Cancer Additional Family Medical History / Comment(s): Breast cancer. Brother(s) Family Medical History: Cancer Father Family Medical History: Cancer Additional Family Medical History / Comment(s): Colon/bladder cancer x 3, at 94 Medications and Allergies Home Medications Medication Instructions Recorded Confirmed Type Fluticasone Nasal [place] [Flonase 2 spray EA NOSTRIL DAILY 05/23/16 06/08/18 History Nasal [place]] Ursodiol 300 mg PO BID 03/16/17 06/08/18 History Levothyroxine Sodium [Synthroid] 100 mcg PO DAILY 06/01/17 06/08/18 History Acetaminophen [Tylenol Extra 500 - 1,000 mg PO Q6H PRN 11/17/17 06/08/18 History Strength] Apixaban [Eliquis] 5 mg PO BID 11/17/17 06/08/18 History Nystatin 100,000 Unit/ml Susp 500,000 unit PO QID 01/16/18 06/08/18 History [Mycostatin Oral Susp] guaiFENesin [Mucinex] 600 mg PO DAILY 01/16/18 06/08/18 History Pantoprazole Sodium [Protonix] 40 mg PO BID #60 tablet. 02/07/18 06/08/18 Rx Docusate [Colace] 100 mg PO BID 05/08/18 06/08/18 History Megestrol Acetate [Megace] 800 mg PO DAILY 05/08/18 06/08/18 History Omeprazole 20 mg PO DAILY 05/08/18 06/08/18 History Polyethylene Glycol 3350 [Miralax] 17 gm PO DAILY PRN 05/08/18 06/08/18 History Prochlorperazine [Compazine] 10 mg PO Q6H PRN 06/08/18 06/08/18 History Allergies Allergy/AdvReac Type Severity Reaction Status Date / Time cefuroxime [From Ceftin] AdvReac PANCREATITI Verified 06/08/18 07:51 S morphine AdvReac BRADYCARDIC Verified 06/08/18 07:51 Physical Exam Vitals: Vital Signs Temp Pulse Pulse Resp BP Pulse Ox 06/12/18 08:00 98.1 F 113 H 16 139/79 96 06/12/18 03:07 111 H 14 06/12/18 03:06 111 H 14 117/84 98 06/12/18 01:29 115 H 06/12/18 01:07 108 H 06/12/18 00:00 98.3 F 109 H 22 155/77 97 06/11/18 20:00 97.4 F L 108 H 18 144/90 96 06/11/18 16:21 96 06/11/18 16:00 98.1 F 110 H 18 140/89 97 06/11/18 12:00 98.1 F 106 H 18 138/94 98 Intake and Output 06/11/18 06/12/18 06/12/18 22:59 06:59 14:59 Intake Total 600 Output Total 426 1600 Balance -426 -1000 Intake: Oral 600 Output: Urine 426 1600 Other: Voiding Method Indwelling Catheter Indwelling Catheter Indwelling Catheter # Voids 0 # Bowel Movements 0 Weight 97 kg On examination he is somewhat confused but awake alert follows commands. He generalized anasarca. HEENT exam no JVP neck is supple no facial asymmetry Lungs are clear to auscultation on the left but there is diminished air entry on the right with an occasional coarse crackle. Heart sounds are unremarkable for any murmur rub gallop Abdomen is distended somewhat tight and ascites. Extreme exam reveals 2+ edema Neurologically awake alert slightly confused per . He is moving all his extremities and there is no focal motor deficit Results - Lab Results Most recent lab results Calcium 8.2 mg/dL (8.4-10.2) L 06/12/18 10:23 Magnesium 1.7 mg/dL (1.6-2.3) 06/10/18 05:43 06/11/18 06:20 06/12/18 10:23 Assessment and Plan Assessment: Impression 1. Acute kidney injury from combination off nonsteroidal and computed tomography scan contrast. Possibility of abdominal compartment syndrome is being considered given his tight ascites. 2. Hyponatremia with sodium of 130 secondary to acute kidney injury. 3. Mild degree of non-gap acidosis secondary to acute kidney injury 4. Metastatic pancreas cancer with liver metastases and omental metastases. His initial diagnosis was in January 2015 and he has been managed with chemotherapy 5. Significantly high lipases suggestive of pancreatitis, improving. Lipase was 6744 and currently 747 6. Anemia of chronic illness hemoglobin is 8.7 Admission 1. Check bladder pressure to ensure there is no abdominal compartment syndrome. 2. Gentle diuresis for possible CHF and fluid overload with tight ascites. 3. Lasix small doses 20 mg IV twice a day and monitor labs and blood pressure and urine output closely Thank you for this consultation we'll continue to follow with you.
[2018-06-12] MEDS ORDERED: MAGNESIUM HYDROXIDE 2,400 MG/10 ML CUP PO PRN (12:41)
[2018-06-12 12:43] LABS: Anisocytosis Slight; Basophils % (A) 0 %; Eosinophils # (A) 0.1 k/uL (0-0.7); Eosinophils % (A) 0 %; HCT 36.2 % (39.0-53.0); Hypochromasia Marked; Lymphocytes # (A) 0.2 k/uL (1.0-4.8); Lymphocytes % (A) 2 %; MCH 31.4 pg (25.0-35.0); MCHC 30.4 g/dL (31.0-37.0); MCV 103.4 fL (80.0-100.0); Macrocytosis Moderate; Mean Platelet Volume 7.7; Monocytes # (A) 0.7 k/uL (0-1.0); Monocytes % (A) 6 %; Neutrophils # (A) 9.7 k/uL (1.3-7.7); Neutrophils % (A) 90 %; Platelet Count 380 k/uL (150-450); Poikilocytosis Slight; RBC 3.51 m/uL (4.30-5.90); RDW 18.2 % (11.5-15.5); WBC 10.8 k/uL (3.8-10.6)
[2018-06-12] MEDS: FUROSEMIDE 10 MG/ML 2 ML VIAL IV SCH ×2 (12:44→21:41)
[2018-06-12] MEDS: SODIUM BICARBONATE TAB 650 MG TAB PO SCH ×3 (12:45→21:40)
[2018-06-12] MEDS: HYDROmorphone 0.5 MG/0.5 ML SYRINGE IVP PRN ×2 (14:40→23:48)
--- NOTE | 2018-06-12 15:01 | P.PN ---
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 admitted for pancreatitis with worsening ascites; patient had episodes of respiratory distress due to worsening ascites during the night; patient is being followed by oncology service and is scheduled for paracentesis this morning Vital signs; patient remains afebrile at 97.5; tachycardic with heart rate ranging between 125-129; blood pressure of 90/60 with SpO2 of 96% on 5 L 06/11/2018 Patient is seen and evaluated in the room with at bedside; continues to be concerned about urinary retention; Molina catheter remains in place; patient has been evaluated by urology and is recommended to continue with Molina catheter for monitoring of urine output; patient is started on Flomax and recommendation is to remove the catheter after voiding trial if no longer medically needed Vital signs remained stable with a temperature of 98.1, pulse 106, respiration 18 and blood pressure of 138/94; SpO2 of 98% on room air Labs review show an upward trend up a white blood count of 23.4; hemoglobin down to 8.7 and worsening of B UN/creatinine from 19/0.79 yesterday to 28/1.87 this morning; total bilirubin is down to 1.9 and lipase of 747; patient is currently not on any IV antibiotics; ID is on board; await further recommendations Ultrasound of abdomen shows loculation of peritoneal fluid 06/12/2018 Patient is seen in the room with at bedside Patient has been seen by nephrology for acute renal injury possibly secondary to NSAIDs versus contrast versus abdominal compartment syndrome due to tight ascites; recommendations are to monitor bladder pressure to ensure absence of abdominal compartment syndrome; gentle diuresis with IV Lasix infusion; monitor strict NICOLE's, daily weights along with renal function and electrolytes patient has been somewhat sleepy; we will change Dilaudid to when necessary instead of scheduled every 4 hours dosing; continue to monitor CBC and renal function along with electrolytes Objective - Vital Signs Vital signs: Vital Signs Temp 97.7 F 06/12/18 12:00 Pulse 114 H 06/12/18 12:00 Resp 16 06/12/18 12:00 BP 124/80 06/12/18 12:00 Pulse Ox 98 06/12/18 12:00 Intake & Output 06/11/18 06/12/18 06/12/18 18:59 06:59 18:59 Intake Total 320 600 Output Total 2024 Balance 309 -1425 Weight 97 kg 97 kg Intake: Oral 320 600 Output: Urine 2024 Other: Voiding Method Indwelling Catheter Indwelling Catheter Indwelling Catheter # Voids 0 # Bowel Movements 0 - Exam On exam, alert and oriented x3. HEENT: Conjunctivae normal. eyes normal. NECK: No JVD. No thyroid enlargement. No LNs CARDIOVASCULAR: S1 and S2 heard RESPIRATION: Breath sounds diminished in the bases. No rhonchi or crackles. No bronchial breathing. ABDOMEN: Soft, tender and distended. No guarding. no masses palpable. No ascites, No hepatosplenomegaly.Bowel sounds heard. LEGS: Trace pedal edema more on the left NERVOUS SYSTEM: Cranial N 2-12 grossly normal. Moves all 4 limbs. No focal deficits. No sensory deficit. No signs of cerebellar dysfucntion. Skin: no ulcer no rash - Labs CBC & Chem 7: 06/12/18 10:23 06/12/18 10:23 Labs: Abnormal Lab Results - Last 24 Hours (Table) 06/12/18 06/12/18 Range/Units 10:23 10:23 WBC 10.8 H (3.8-10.6) k/uL RBC 3.51 L (4.30-5.90) m/uL Hgb 11.0 L (13.0-17.5) gm/dL Hct 36.2 L (39.0-53.0) % MCV 103.4 H (80.0-100.0) fL MCHC 30.4 L (31.0-37.0) g/dL RDW 18.2 H (11.5-15.5) % Neutrophils # 9.7 H (1.3-7.7) k/uL Lymphocytes # 0.2 L (1.0-4.8) k/uL Sodium 130 L (137-145) mmol/L Carbon Dioxide 19 L (22-30) mmol/L BUN 35 H (9-20) mg/dL Creatinine 2.01 H (0.66-1.25) mg/dL Calcium 8.2 L (8.4-10.2) mg/dL Total Bilirubin 2.7 H (0.2-1.3) mg/dL Alkaline Phosphatase 212 H (38-126) U/L Total Protein 4.6 L (6.3-8.2) g/dL Albumin 2.2 L (3.5-5.0) g/dL Microbiology - Last 24 Hours (Table) 06/08/18 15:40 Blood Culture - Preliminary Blood No Growth after 72 hours Assessment and Plan Assessment: 1. Metastatic Pancreatic Cancer: - Recent CT scans 06/08/18 with probable progression; concern for new right hepatic and post hepatic lesions, new and enlarging gastrohepatic lymph nodes, concern for carcinamatosis, increased abdominal ascites. - Dr. Dominguez's recommendations for evaluation of clinical trials [facility] with Ronaldo Norris. Patient and very apprehensive to seek clinical trial at this time and have contacted a second opinion physician in which they wish to meet prior to heading to [place]. 2. Acute Pancreatitis: - Bowel rest and slow advancement of diet - GI is following - Serial Pancreatic Enzymes are trending down - IV Antibiotics 3. Symptomatic Abdominal Ascites: - Eliquis has been placed on hold in anticipation of paracentesis, cytology and fluid studies requested -Patient is scheduled for paracentesis this morning as he is quit symptomatic with pain and shortness of breath. 4. Urinary Retentions: - Molina catheter; plan is to remove once patient is stable for voiding trials - Urine is negative so far 5. Neoplastic Related Pain: -Patient had episodes of confusion last night secondary to Dilaudid; we will discontinue current dose of Dilaudid and Toradol since it's not providing any relief to patient; I had long discussion with patient and family and we have agreed to start patient on 0.5 mg of IV Dilaudid every 3 hours and make adjustments according to patient response 6. Constipation: - Increased bowel regimen for narcotic induced constipation 7. HX: Pulmonary Embolism: - On Eliquis, Hold till after Paracentesis 8. Recurrent Biliary Stent Obstructions and Infections; stable at this time 9. DVT prophylaxis; systemic anticoagulation with Eliquis; on hold for paracentesis today CODE STATUS; full code Time with Patient: Greater than 30
--- NOTE | 2018-06-12 19:34 | P.PN ---
Subjective Progress Note Date: 06/12/18 This is a 67-year-old male patient well known to ID service as he has had previous bouts of E. coli sepsis related to obstruction of his biliary track. 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 There is evidence of bilateral pulmonary emboli without much symptom is being treated with Eliquis. Patient gives history of influenza A with admission 05/09/2018. Patient states he recovered from the influenza but then developed a cough with thick white sputum production that has been going on for about one week. He also had 1 documented fever at home and came into [facility] emergency center for evaluation. He was febrile with a temperature 102.8, white count 1.5, creatinine 0.93. Lactic acid 3.5 and he is status post 3 L of IV fluid. Albumin 2.6. Influenza negative. Urinalysis was cloudy with calcium oxalate crystals, rare bacteria and hyaline casts. Chest x-ray a left lower lobe infiltration. The patient had some leukopenia which was improving as his pneumonia was treated. He was discharged home to complete a course of cefuroxime to be reevaluated for restarting his chemotherapy. Patient over was not feeling well with a couple of days. He developed some nausea and some emesis and poor oral intake. He had 3 doses of cefuroxime left and was requested to complete them if possible. The patient however now had worsening presented to the emergency center because his nausea and emesis or worsening was having some increasing abdominal pain. Amylase and lipase were elevated and calcium was admitted for treatment of pancreatitis with GI rest and hydration. Infectious diseases follow-up was requested. 06/09/2018 patient is feeling very poorly. Patient's is present. The case is discussed with oncology as well as gastroenterology. The patient is quite uncomfortable with the ascites and diagnostic and therapeutic paracentesis is likely to be done. The patient's Eliquis was placed on hold last evening. However it is related to the patient's insisted that he received his dose this morning and Eliquis was given. The patient also had developed some urinary retention and straight catheterization was performed the patient continued to have retention and Molina catheter was placed. Still having sever abdominal pain some relief from Dilaudid. 06/10/2018 the patient did have an A-team called today. After 1.5 mg of Dilaudid that was given for his unremitting pain he developed hypotension and tachycardia and hypoxia. Responded well to treatment but was moved to selective care. It is noted ultrasound was performed which failed to reveal evidence of a large enough amount of ascites for paracentesis. Patient's pain has been very difficult and is now on a more regular schedule. Close monitoring for oversedation is in process. 06/11/2018 patient continues to have ongoing difficulties. With the utilization of Dilaudid for his pain control he started becoming more unstable and although was in the room and assisting him he did suffer a fall. No particular injury occurred. The patient is no more short of breath after he's been examined by the urologist who found his enlarged prostate. Likely etiology of his urinary retention. However after bending for the procedure this is increased his dyspnea. The patient's is becoming upset because of her concerns about his status. Patient however remains without fever or chills. He has not developed jaundice. He is having no nausea or emesis but with his extensive abdominal distention has a very poor appetite. The diet was advanced and he is tolerating this quite well. 06/12/2018 with lasix use is now much better, less SOB but constipated Objective - Vital Signs Vital signs: Vital Signs Temp 98.1 F 06/12/18 16:00 Pulse 116 H 06/12/18 16:00 Resp 18 06/12/18 16:00 BP 111/70 06/12/18 16:00 Pulse Ox 93 L 06/12/18 16:00 Intake & Output 06/12/18 06/12/18 06/13/18 06:59 18:59 06:59 Intake Total 600 0 Output Total 2024 1999 Balance -142 -1999 Weight 97 kg 97 kg Intake: Oral 600 0 Output: Urine 2024 1999 Other: Voiding Method Indwelling Catheter Indwelling Catheter # Voids 0 # Bowel Movements 0 - Exam 68-year-old male appears chronically ill, constipated less SOB HEENT: Anicteric conjunctiva are pink and moist nasal mucosa grossly intact without significant lesions, there is no thrush. Neck: The neck is supple without significant lymphadenopathy or thyromegaly. Lungs: Good bilateral air entry there is no snapping wheezing. There is evidence of decreased breath sounds in the left base and a few crackles at the left base, just few crackles at the right base. No deepali dullness is noted at this time. Heart: Regular rate and rhythm with an audible S1-S2, no S3 no S4. There is no significant murmur click or rub, PMI was nondisplaced. Abdomen: The abdomen is distended but soft generalized tenderness especially in the epigastrium Extremities: The upper extremities have excellent pulses they are symmetric, no significant petechiae or telangiectasia. No splinter hemorrhages were noted. less edema of legs Neuro: Awake alert oriented still has some mild confusion but does not have new acute gross focal sensory motor deficits - Labs CBC & Chem 7: 06/12/18 10:23 06/12/18 10:23 Labs: Abnormal Lab Results - Last 24 Hours (Table) 06/12/18 06/12/18 Range/Units 10:23 10:23 WBC 10.8 H (3.8-10.6) k/uL RBC 3.51 L (4.30-5.90) m/uL Hgb 11.0 L (13.0-17.5) gm/dL Hct 36.2 L (39.0-53.0) % MCV 103.4 H (80.0-100.0) fL MCHC 30.4 L (31.0-37.0) g/dL RDW 18.2 H (11.5-15.5) % Neutrophils # 9.7 H (1.3-7.7) k/uL Lymphocytes # 0.2 L (1.0-4.8) k/uL Sodium 130 L (137-145) mmol/L Carbon Dioxide 19 L (22-30) mmol/L BUN 35 H (9-20) mg/dL Creatinine 2.01 H (0.66-1.25) mg/dL Calcium 8.2 L (8.4-10.2) mg/dL Total Bilirubin 2.7 H (0.2-1.3) mg/dL Alkaline Phosphatase 212 H (38-126) U/L Total Protein 4.6 L (6.3-8.2) g/dL Albumin 2.2 L (3.5-5.0) g/dL Microbiology - Last 24 Hours (Table) 06/08/18 15:40 Blood Culture - Preliminary Blood No Growth after 96 hours Laboratory Results WBC 10.8 k/uL (3.8-10.6) H 06/12/18 10:23 RBC 3.51 m/uL (4.30-5.90) L 06/12/18 10:23 Hgb 11.0 gm/dL (13.0-17.5) L 06/12/18 10:23 Hct 36.2 % (39.0-53.0) L 06/12/18 10:23 MCV 103.4 fL (80.0-100.0) H 06/12/18 10:23 MCH 31.4 pg (25.0-35.0) 06/12/18 10:23 MCHC 30.4 g/dL (31.0-37.0) L 06/12/18 10:23 RDW 18.2 % (11.5-15.5) H 06/12/18 10:23 Plt Count 380 k/uL (150-450) 06/12/18 10:23 Neutrophils % 90 % 06/12/18 10:23 Neutrophils % (Manual) 88 % 06/08/18 11:32 Lymphocytes % 2 % 06/12/18 10:23 Lymphocytes % (Manual) 3 % 06/08/18 11:32 Monocytes % 6 % 06/12/18 10:23 Monocytes % (Manual) 7 % 06/08/18 11:32 Eosinophils % 0 % 06/12/18 10:23 Basophils % 0 % 06/12/18 10:23 Myelocytes % 2 % 06/08/18 11:32 Neutrophils # 9.7 k/uL (1.3-7.7) H 06/12/18 10:23 Neutrophils # (Manual) 22.26 k/uL (1.3-7.7) H 06/08/18 11:32 Lymphocytes # 0.2 k/uL (1.0-4.8) L 06/12/18 10:23 Lymphocytes # (Manual) 0.76 k/uL (1.0-4.8) L 06/08/18 11:32 Monocytes # 0.7 k/uL (0-1.0) 06/12/18 10:23 Monocytes # (Manual) 1.77 k/uL (0-1.0) H 06/08/18 11:32 Eosinophils # 0.1 k/uL (0-0.7) 06/12/18 10:23 Basophils # 0.0 k/uL (0-0.2) 06/12/18 10:23 Myelocytes # (Manual) 0.51 k/uL (0) H 06/08/18 11:32 Nucleated RBCs 0 /100 WBC (0-0) 06/08/18 11:32 Manual Slide Review Performed 06/10/18 05:43 Toxic Vacuolation Present 06/10/18 05:43 Large Platelets Present 06/10/18 05:43 Polychromasia Present 06/10/18 05:43 Hypochromasia Marked 06/12/18 10:23 Poikilocytosis Slight 06/12/18 10:23 Anisocytosis Slight 06/12/18 10:23 Macrocytosis Moderate 06/12/18 10:23 PT 11.1 sec (9.0-12.0) 06/10/18 05:43 INR 1.0 (<1.2) 06/10/18 05:43 Sodium 130 mmol/L (137-145) L 06/12/18 10:23 Potassium 4.2 mmol/L (3.5-5.1) 06/12/18 10:23 Chloride 102 mmol/L (98-107) 06/12/18 10:23 Carbon Dioxide 19 mmol/L (22-30) L 06/12/18 10:23 Anion Gap 9 mmol/L 06/12/18 10:23 BUN 35 mg/dL (9-20) H 06/12/18 10:23 Creatinine 2.01 mg/dL (0.66-1.25) H 06/12/18 10:23 Est GFR (CKD-EPI)AfAm 38 (>60 ml/min/1.73 sqM) 06/12/18 10:23 Est GFR (CKD-EPI)NonAf 33 (>60 ml/min/1.73 sqM) 06/12/18 10:23 Glucose 74 mg/dL (74-99) 06/12/18 10:23 POC Glucose (mg/dL) 75 mg/dL (75-99) 06/10/18 05:31 POC Glu Sap Sd Analyst Velvet Pino 06/10/18 05:31 Plasma Lactic Acid Paddy 2.0 mmol/L (0.7-2.0) 06/10/18 05:43 Uric Acid 4.8 mg/dL (3.5-8.5) 06/12/18 10:23 Calcium 8.2 mg/dL (8.4-10.2) L 06/12/18 10:23 Magnesium 1.7 mg/dL (1.6-2.3) 06/10/18 05:43 Total Bilirubin 2.7 mg/dL (0.2-1.3) H 06/12/18 10:23 AST 54 U/L (17-59) 06/12/18 10:23 ALT 46 U/L (21-72) 06/12/18 10:23 Alkaline Phosphatase 212 U/L (38-126) H 06/12/18 10:23 Ammonia 12 umol/L (<30) 06/10/18 05:43 Total Protein 4.6 g/dL (6.3-8.2) L 06/12/18 10:23 Albumin 2.2 g/dL (3.5-5.0) L 06/12/18 10:23 Amylase 533 U/L (30-110) H* 06/08/18 11:32 Lipase 747 U/L (23-300) H 06/11/18 06:20 Urine Color Yellow 06/08/18 22:40 Urine Appearance Clear (Clear) 06/08/18 22:40 Urine pH 6.0 (5.0-8.0) 06/08/18 22:40 Ur Specific [place] >1.050 (1.001-1.035) H 06/08/18 22:40 Urine Protein 1+ (Negative) H 06/08/18 22:40 Urine Glucose (UA) Negative (Negative) 06/08/18 22:40 Urine Ketones Negative (Negative) 06/08/18 22:40 Urine Blood Negative (Negative) 06/08/18 22:40 Urine Nitrite Negative (Negative) 06/08/18 22:40 Urine Bilirubin Negative (Negative) 06/08/18 22:40 Urine Urobilinogen <2.0 mg/dL (<2.0) 06/08/18 22:40 Ur Leukocyte Esterase Negative (Negative) 06/08/18 22:40 Urine RBC 1 /hpf (0-5) 06/08/18 22:40 Urine WBC 3 /hpf (0-5) 06/08/18 22:40 Urine Bacteria Rare /hpf (None) H 06/08/18 22:40 Urine Mucus Many /hpf (None) H 06/08/18 22:40 Microbiology 06/08/18 15:40 Blood Blood Culture - Preliminary No Growth after 96 hours Assessment and Plan (1) Acute pancreatitis Current Visit: Yes Status: Acute Code(s): K85.90 - ACUTE PANCREATITIS WITHOUT NECROSIS OR INFECTION, UNSP SNOMED Code(s): 330025712 (2) Pancreatic cancer Current Visit: Yes Status: Acute Code(s): C25.9 - MALIGNANT NEOPLASM OF PANCREAS, UNSPECIFIED SNOMED Code(s): 894812535 (3) Leukocytosis Narrative/Plan: 60-year-old male who has a history of pancreatic cancer was recently rehospitalized at which point in time he had a left lower lobe infiltration. He has completed his course of oral antibiotic therapy but is developed increasing nausea and emesis and progressive abdominal pain. Upon presentation to emergency center the patient has evidence of pancreatitis with hydration as her starting to show some improvement. Patient continues feeling very poorly. The patient did undergo a computed tomography scan fortunately reveals evidence of resolution of his pneumonia. However does appear that his underlying malignancy has progressed with new liver masses and evidence of carcinomatosis of the omentum. And development of ascites. This information is related to the patient and the . The oncology nurse practitioner has also been updated. At this time there does not appear to be an underlying infection but does have leukocytosis and constantly is monitored closely. But without evidence of phlegmon of the pancreas there is no indication for antibiotic therapy at this point in time. 06/09/2018 discussion occurred with the patient and the . Regretfully Eliquis was given today which will likely delay the therapeutic paracentesis. Which will also like to be a diagnostic for cytology. Pain control as per the oncology service. At this time remains without evidence of significant infection continue to monitor without antimicrobial therapy. No evidence of any phlegmon or pancreatic pseudocyst. Leukocytosis is multifactorial. 06/10/2018 the patient's leukocytosis is now improved to 12 today. He did have an event with what appeared to be some excessive narcotic effect from the doses of Dilaudid for be given because of his significant pain. The dosing was increased significantly yesterday. He is now on a more scheduled smaller dose. Ultrasound was performed in the peritoneal fluid is too loculated for a peritoneal tap. I discussed the case with gastroenterology and will advance his diet as does appear that his pancreatitis symptomatically is improving. With lack of fever, improving leukocytosis does not appear to have underlying infection. However the total bilirubin did increase and will monitored to assure does not continue to climb. If so within need consideration of anti biotics because of his history of recurrent cholangitis. Patient's is working diligently for him to get discharged home so she can take him for a second opinion possibly for further chemotherapy. 06/11/2018 patient continues to feel poorly. His shortness of breath is waxing and waning it is now considerably worse after his prostate exam which required him to bend which resulted in some compression to his diaphragms resulting in some residual and ongoing shortness of breath. He has had improvement with the shortness of breath and pains with Dilaudid and another doses given at this time. The patient has had difficulty with increased creatinine and consequently is receiving some fluids trying to improve his renal function. It is explained to the patient's that Lasix will help remove some fluid however these have improved intravascular volume for diuretic is given so no further damage is done. Patient's oxygen saturation is 99% on 2 L, oxygen has helped relieve his shortness of breath some. The patient is being closely monitored by his oncologist and the primary staff. There was some difficulties with his [place] morning is now been readjusted and he is much more comfortable. Laboratory count is waxing and waning in today is again increased to 23.4 it was 12.2. The creatinine did go from 0.79-1.87. Total bilirubin decreased to 1.9 and lipase was down to 747. His chest x-ray showed evidence of the left pleural effusion without evidence of new pneumonic infiltration. An abdominal x-ray failed to reveal a small bowel obstruction. This information is related and will continue to monitor for any concerns to underlying infection. 06/12/2018 better with lasix less SOB but constipated if now relief consider Lactulose Current Visit: Yes Status: Acute Code(s): D72.829 - ELEVATED WHITE BLOOD CELL COUNT, UNSPECIFIED SNOMED Code(s): 269568251
[2018-06-13] MEDS: HYDROmorphone 0.5 MG/0.5 ML SYRINGE IVP PRN ×3 (03:47→23:30)
[2018-06-13 04:34] LABS: Anisocytosis Slight; Basophils % (A) 0 %; Eosinophils % (A) 0 %; HCT 24.1 % (39.0-53.0); Hypochromasia Marked; Lymphocytes # (A) 0.3 k/uL (1.0-4.8); Lymphocytes % (A) 2 %; MCH 32.7 pg (25.0-35.0); MCHC 31.8 g/dL (31.0-37.0); Macrocytosis Moderate; Mean Platelet Volume 6.7; Monocytes # (A) 1.2 k/uL (0-1.0); Monocytes % (A) 8 %; Neutrophils # (A) 12.5 k/uL (1.3-7.7); Neutrophils % (A) 87 %; Platelet Count 425 k/uL (150-450); Poikilocytosis Slight; RBC 2.34 m/uL (4.30-5.90); RDW 18.2 % (11.5-15.5); WBC 14.4 k/uL (3.8-10.6)
[2018-06-13 04:41] LABS: HGB 7.7 gm/dL (13.0-17.5)
[2018-06-13 05:01] LABS: Albumin 2.1 g/dL (3.5-5.0); Calcium 8.1 mg/dL (8.4-10.2); Potassium 3.7 mmol/L (3.5-5.1); Total Bilirubin 2.7 mg/dL (0.2-1.3); Total Protein 4.2 g/dL (6.3-8.2)
[2018-06-13] MEDS: HYDROmorphone 1 MG/ML 1 ML SYRINGE IVP PRN ×4 (05:33→13:28)
--- NOTE | 2018-06-13 06:07 | XR ---
EXAM: XR Chest, 1 View CLINICAL HISTORY: increase pain in right rib TECHNIQUE: Frontal view of the chest. COMPARISON: 06/12/2018. FINDINGS: Lungs: Peribronchial cuffing is likely reactive to this finding, although infectious versus inflammatory airways disease would be included in the differential. Pleural space: Small/moderate pleural effusion with probable compressive atelectasis of the left lung base, similar prior study. Correlate clinically for superimposed infection. No pneumothorax. Heart: Stable cardiomegaly with findings suggestive of mild pulmonary vascular congestion/pulmonary edema. Mediastinum: Essentially unchanged. Bones/joints: Essentially unchanged. Tubes, lines and devices: Left-sided Port-A-Cath is again seen with tip overlying the SVC/right atrial junction. IMPRESSION: 1. Small/moderate pleural effusion with probable compressive atelectasis of the left lung base, similar prior study. Correlate clinically for superimposed infection. 2. Stable cardiomegaly with findings suggestive of mild pulmonary vascular congestion/pulmonary edema. 3. Peribronchial cuffing is likely reactive to this finding, although infectious versus inflammatory airways disease would be included in the differential.
[2018-06-13] MEDS: LEVOTHYROXINE 100 MCG TAB PO SCH (06:21)
[2018-06-13] MEDS ORDERED: LACTULOSE 20 GM/30 ML CUP PO PRN (08:03)
[2018-06-13] MEDS: IPRATROPIUM-ALBUTEROL 3 ML NEB INHALATION PRN (08:09)
--- NOTE | 2018-06-13 08:45 | P.PN ---
Subjective Patient is seen in follow-up for acute kidney injury. Creatinine peaked at 2.01 and is 1.97 today. Baseline creatinine near 1. He has a Molina catheter for urinary retention. Urine output has been good. Oral intake is fair. Currently being treated for acute pancreatitis. He is on a clear liquid diet. No chest pain or shortness of breath. Vital signs are stable. General: The patient appeared well nourished and normally developed. HEENT: Head exam is unremarkable. Neck is without jugular venous distension. LUNGS: Lungs are clear to auscultation and percussion. Breath sounds decreased. HEART: Rate and Rhythm are regular. First and second heart sounds normal. No murmurs, rubs or gallops. ABDOMEN: Abdominal exam reveals normal bowel sounds. Non-tender and non- distended. No evidence of peritonitis. EXTREMITITES: 1+ edema. Objective - Vital Signs Vital signs: Vital Signs Temp 98.2 F 06/13/18 03:51 Pulse 112 H 06/13/18 08:21 Resp 18 06/13/18 03:51 BP 127/75 06/13/18 03:51 Pulse Ox 98 06/13/18 03:51 Intake & Output 06/12/18 06/13/18 06/13/18 18:59 06:59 18:59 Intake Total 0 Output Total 1999 3100 Balance -1999 Weight 97 kg 95.5 kg Intake: Oral 0 Output: Urine 1999 3100 Stool 1 Other: Voiding Method Indwelling Catheter Indwelling Catheter # Voids 0 # Bowel Movements 0 - Labs CBC & Chem 7: 06/13/18 04:20 06/13/18 04:20 Labs: Abnormal Lab Results - Last 24 Hours (Table) 06/12/18 06/12/18 06/13/18 Range/Units 10:23 10:23 04:20 WBC 10.8 H 14.4 H (3.8-10.6) k/uL RBC 3.51 L 2.34 L (4.30-5.90) m/uL Hgb 11.0 L 7.7 L D (13.0-17.5) gm/dL Hct 36.2 L 24.1 L (39.0-53.0) % MCV 103.4 H 103.0 H (80.0-100.0) fL MCHC 30.4 L (31.0-37.0) g/dL RDW 18.2 H 18.2 H (11.5-15.5) % Neutrophils # 9.7 H 12.5 H (1.3-7.7) k/uL Lymphocytes # 0.2 L 0.3 L (1.0-4.8) k/uL Monocytes # 1.2 H (0-1.0) k/uL Sodium 130 L (137-145) mmol/L Carbon Dioxide 19 L (22-30) mmol/L BUN 35 H (9-20) mg/dL Creatinine 2.01 H (0.66-1.25) mg/dL Calcium 8.2 L (8.4-10.2) mg/dL Total Bilirubin 2.7 H (0.2-1.3) mg/dL Alkaline Phosphatase 212 H (38-126) U/L Total Protein 4.6 L (6.3-8.2) g/dL Albumin 2.2 L (3.5-5.0) g/dL 06/13/18 Range/Units 04:20 WBC (3.8-10.6) k/uL RBC (4.30-5.90) m/uL Hgb (13.0-17.5) gm/dL Hct (39.0-53.0) % MCV (80.0-100.0) fL MCHC (31.0-37.0) g/dL RDW (11.5-15.5) % Neutrophils # (1.3-7.7) k/uL Lymphocytes # (1.0-4.8) k/uL Monocytes # (0-1.0) k/uL Sodium 131 L (137-145) mmol/L Carbon Dioxide 21 L (22-30) mmol/L BUN 37 H (9-20) mg/dL Creatinine 1.97 H (0.66-1.25) mg/dL Calcium 8.1 L (8.4-10.2) mg/dL Total Bilirubin 2.7 H (0.2-1.3) mg/dL Alkaline Phosphatase 183 H (38-126) U/L Total Protein 4.2 L (6.3-8.2) g/dL Albumin 2.1 L (3.5-5.0) g/dL Microbiology - Last 24 Hours (Table) 06/08/18 15:40 Blood Culture - Preliminary Blood No Growth after 96 hours Assessment and Plan Plan: Assessment: 1. Acute kidney injury secondary to ATN secondary to contrast-induced nephropathy, nonsteroidals. Also component of urinary retention. Baseline creatinine near 1. Creatinine peaked at 2.01 this admission and is 1.97 today. 2. Urinary retention status post Molina catheter placement. 3. Hyponatremia. Currently hypervolemic. 4. Metastatic pancreatic cancer. Noted to have liver and omental metastasis. Patient receiving chemotherapy as an outpatient. Last dose on 05/18/2018. 5. Metabolic acidosis secondary to acute kidney injury. Maintained on oral sodium bicarbonate. Better. 6. Volume overload. Albumin level noted to be low. 7. Acute pancreatitis. Plan: Maintain Lasix 20 mg IV twice daily. 25 g of IV albumin. 2 doses today. Maintain Molina catheter. Repeat electrolytes in the morning.
[2018-06-13] MEDS: ALBUMIN HUMAN 25% 50 ML in EMPTY BAG 1 BAG IVPB SCH ×2 (08:53→21:02)
[2018-06-13] MEDS: APIXABAN 5 MG TAB PO SCH ×2 (08:54→21:01)
[2018-06-13] MEDS: SODIUM BICARBONATE TAB 650 MG TAB PO SCH ×4 (08:55→21:01)
[2018-06-13] MEDS: DOCUSATE 100 MG CAP PO SCH ×2 (08:55→21:01)
[2018-06-13] MEDS: URSODIOL 300 MG CAP PO SCH ×2 (08:55→21:01)
[2018-06-13] MEDS: TAMSULOSIN 0.4 MG CAP.ER.24H PO SCH (08:55)
[2018-06-13] MEDS: FUROSEMIDE 10 MG/ML 2 ML VIAL IV SCH ×2 (08:55→21:01)
[2018-06-13] MEDS: POLYETHYLENE GLYCOL 3350 17 GM POWD.PACK PO SCH (09:10)
[2018-06-13] MEDS: FLUTICASONE 50MCG/SPRAY NASAL 16GM EA NOSTRIL SCH (09:11)
--- NOTE | 2018-06-13 09:33 | P.EN ---
i came to see pt and she did not want me to see him. pt and refused. bed side nurse is informed
[2018-06-13 10:36] LABS: Anisocytosis Slight; Basophils % (A) 0 %; Eosinophils # (A) 0.1 k/uL (0-0.7); Eosinophils % (A) 0 %; HCT 26.8 % (39.0-53.0); HGB 8.3 gm/dL (13.0-17.5); Hypochromasia Marked; Lymphocytes # (A) 0.5 k/uL (1.0-4.8); Lymphocytes % (A) 4 %; MCH 31.9 pg (25.0-35.0); MCHC 30.9 g/dL (31.0-37.0); MCV 103.1 fL (80.0-100.0); Macrocytosis Moderate; Mean Platelet Volume 7.1; Monocytes # (A) 1.4 k/uL (0-1.0); Monocytes % (A) 10 %; Neutrophils # (A) 11.8 k/uL (1.3-7.7); Neutrophils % (A) 83 %; Platelet Count 447 k/uL (150-450); Poikilocytosis Slight; RDW 18.1 % (11.5-15.5); WBC 14.2 k/uL (3.8-10.6)
--- NOTE | 2018-06-13 16:24 | US ---
EXAMINATION TYPE: US abdomen limited DATE OF EXAM: 06/13/2018 COMPARISON: NONE CLINICAL HISTORY: Ascites. Mild amount of ascites seen within four quadrant scan of abdomen. IMPRESSION: Mild ascites.
[2018-06-13] MEDS: ONDANSETRON 4 MG/2 ML VIAL IVP PRN (17:33)
[2018-06-13 18:26] LABS: Iron Saturation 8.87 (15.00-50.00)
--- NOTE | 2018-06-13 18:35 | P.PN ---
Subjective Progress Note Date: 06/13/18 Principal diagnosis: Pancreatic Cancer Fall over weekend, increased confusion, increased creatinine, total bili same 2.7. Objective - Vital Signs Vital signs: Vital Signs Temp 98.4 F 06/13/18 16:00 Pulse 110 H 06/13/18 16:00 Resp 18 06/13/18 16:00 BP 131/79 06/13/18 16:00 Pulse Ox 96 06/13/18 16:00 Intake & Output 06/12/18 06/13/18 06/13/18 18:59 06:59 18:59 Intake Total 0 230 Output Total 1999 3101 900 Balance -1999 -3101 -673 Weight 97 kg 95.5 kg Intake: Oral 0 230 Output: Urine 1999 3100 900 Stool 1 3 Other: Voiding Method Indwelling Catheter Indwelling Catheter Indwelling Catheter # Voids 0 0 # Bowel Movements 0 - Exam Gen: Alert, Mild Distress with pain, relieved after breakthrough dilaudid given Head: NC/NT Mouth: Thrush thick tongue and posterior pharynx Neck: SUpple LN: No palpable lymph nodes cervical, supraclavicular, axillary, or submandibular Mouth: Scant thrush, Mild erythemia posterior pharynx Lungs: Diminished bibasilar bases, no wheezes or rhonchi. Mild increased effort noted with conversation Heart: Tachy APical 127 - Regular (EKG COnfirmed) Abdomen: Firm, DIstended, Tender to palpation Extremities: BLE Edema L>R Neuro: No sensory or motor deficits notes Psych: Anxious, conversation appropriate - Labs CBC & Chem 7: 06/13/18 08:50 06/13/18 04:20 Labs: Abnormal Lab Results - Last 24 Hours (Table) 06/13/18 06/13/18 06/13/18 Range/Units 04:20 04:20 08:50 WBC 14.4 H 14.2 H (3.8-10.6) k/uL RBC 2.34 L 2.60 L (4.30-5.90) m/uL Hgb 7.7 L D 8.3 L (13.0-17.5) gm/dL Hct 24.1 L 26.8 L (39.0-53.0) % MCV 103.0 H 103.1 H (80.0-100.0) fL MCHC 30.9 L (31.0-37.0) g/dL RDW 18.2 H 18.1 H (11.5-15.5) % Neutrophils # 12.5 H 11.8 H (1.3-7.7) k/uL Lymphocytes # 0.3 L 0.5 L (1.0-4.8) k/uL Monocytes # 1.2 H 1.4 H (0-1.0) k/uL Sodium 131 L (137-145) mmol/L Carbon Dioxide 21 L (22-30) mmol/L BUN 37 H (9-20) mg/dL Creatinine 1.97 H (0.66-1.25) mg/dL Calcium 8.1 L (8.4-10.2) mg/dL Total Bilirubin 2.7 H (0.2-1.3) mg/dL Alkaline Phosphatase 183 H (38-126) U/L Total Protein 4.2 L (6.3-8.2) g/dL Albumin 2.1 L (3.5-5.0) g/dL Microbiology - Last 24 Hours (Table) 06/08/18 15:40 Blood Culture - Preliminary Blood No Growth after 120 hours Assessment and Plan (1) Acute pancreatitis Current Visit: Yes Status: Acute Code(s): K85.90 - ACUTE PANCREATITIS WITHOUT NECROSIS OR INFECTION, UNSP SNOMED Code(s): 184526283 (2) Pancreatic cancer Current Visit: Yes Status: Acute Code(s): C25.9 - MALIGNANT NEOPLASM OF PANCREAS, UNSPECIFIED SNOMED Code(s): 404401679 (3) Elevated amylase and lipase Current Visit: No Status: Acute Priority: High Code(s): R74.8 - ABNORMAL LEVELS OF OTHER SERUM ENZYMES SNOMED Code(s): 077878220 (4) Ascites Current Visit: Yes Status: Acute Code(s): R18.8 - OTHER ASCITES SNOMED Code(s): 611226434 Plan: Assessment and Recommendations: Metastatic Pancreatic Cancer: - Recent CT scans 06/08/18 with probable progression; concern for new right hepatic and post hepatic lesions, new and enlarging gastrohepatic lymph nodes, concern for carcinamatosis, increased abdominal ascites. - Long discussion with patient and , Dr. Dominguez's recommendations for evaluation of clinical trials [facility] with Ronaldo Norris. Patient ans very apprehensive to seek clinical trial at this time and have contacted a second opinion physician in which they wish to meet prior to heading to [place]. - We will assist in medical records to [facility] and/or Second opinion to help expedite this evaluation Acute Pancreatitis: - Bowel rest and slow advancement of diet - GI is following - Serial Pancreatic Enzymes are trending down - IV Antibiotics Symptomatic Abdominal Ascites: - Eliquis has been placed on hold in anticipation of paracentesis, will ask for cytology and fluid studies on para fluid - I have contacted IR to assist in expediting this as he is quit symptomatic with pain and shortness of breath. - IR has attempted but due to lack of fluid unable to obtain fluid from peritoneum, feel this maybe secondary carcinamatosis Urinary Retentions: - Primary Team - Cultures Pending - Decreased urinary output - Urology has been consulted Neoplastic Related Pain: - Continue current breakthrough pain medication and symptom control Constipation: - Increased bowel regimen for narcotic induced constipation Recent Admissions for Influenza A and Pneumonia - Resolved HX: Pulmonary Embolism: - On Eliquis, Hold till after Paracentesis HX: Recurrent Biliary Stent Obstructions and Infections Acute Hypoxic respiratory Failure: Acute renal insufficiency: - Nephrology FOllowing Had a long discussion about goals of care and code status today. We discussed all parts in detail related to DNR, code status PLan: - Repeat Abdominal Ultrasound for Increased Ascites, although just states mild ascites, I will discuss further with radiologist in am. Yuliana Fernandez [facility] Phys[facility] Attest: I have completed the full history and physical and agree with above dictation, dictated as a scribe
[2018-06-13] MEDS: MEROPENEM 1 GM in SODIUM CHLORIDE 0.9% 100 ML IVPB SCH ×2 (20:58→23:23)
[2018-06-13] MEDS: MEGESTROL 40 MG TAB PO SCH (21:01)
[2018-06-13] MEDS: MELATONIN 3 MG TABLET PO SCH (21:01)
--- NOTE | 2018-06-13 22:27 | P.PN ---
Subjective Progress Note Date: 06/13/18 This is a 67-year-old male patient well known to ID service as he has had previous bouts of E. coli sepsis related to obstruction of his biliary track. 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 There is evidence of bilateral pulmonary emboli without much symptom is being treated with Eliquis. Patient gives history of influenza A with admission 05/09/2018. Patient states he recovered from the influenza but then developed a cough with thick white sputum production that has been going on for about one week. He also had 1 documented fever at home and came into [facility] emergency center for evaluation. He was febrile with a temperature 102.8, white count 1.5, creatinine 0.93. Lactic acid 3.5 and he is status post 3 L of IV fluid. Albumin 2.6. Influenza negative. Urinalysis was cloudy with calcium oxalate crystals, rare bacteria and hyaline casts. Chest x-ray a left lower lobe infiltration. The patient had some leukopenia which was improving as his pneumonia was treated. He was discharged home to complete a course of cefuroxime to be reevaluated for restarting his chemotherapy. Patient over was not feeling well with a couple of days. He developed some nausea and some emesis and poor oral intake. He had 3 doses of cefuroxime left and was requested to complete them if possible. The patient however now had worsening presented to the emergency center because his nausea and emesis or worsening was having some increasing abdominal pain. Amylase and lipase were elevated and calcium was admitted for treatment of pancreatitis with GI rest and hydration. Infectious diseases follow-up was requested. 06/09/2018 patient is feeling very poorly. Patient's is present. The case is discussed with oncology as well as gastroenterology. The patient is quite uncomfortable with the ascites and diagnostic and therapeutic paracentesis is likely to be done. The patient's Eliquis was placed on hold last evening. However it is related to the patient's insisted that he received his dose this morning and Eliquis was given. The patient also had developed some urinary retention and straight catheterization was performed the patient continued to have retention and Molina catheter was placed. Still having sever abdominal pain some relief from Dilaudid. 06/10/2018 the patient did have an A-team called today. After 1.5 mg of Dilaudid that was given for his unremitting pain he developed hypotension and tachycardia and hypoxia. Responded well to treatment but was moved to selective care. It is noted ultrasound was performed which failed to reveal evidence of a large enough amount of ascites for paracentesis. Patient's pain has been very difficult and is now on a more regular schedule. Close monitoring for oversedation is in process. 06/11/2018 patient continues to have ongoing difficulties. With the utilization of Dilaudid for his pain control he started becoming more unstable and although was in the room and assisting him he did suffer a fall. No particular injury occurred. The patient is no more short of breath after he's been examined by the urologist who found his enlarged prostate. Likely etiology of his urinary retention. However after bending for the procedure this is increased his dyspnea. The patient's is becoming upset because of her concerns about his status. Patient however remains without fever or chills. He has not developed jaundice. He is having no nausea or emesis but with his extensive abdominal distention has a very poor appetite. The diet was advanced and he is tolerating this quite well. 06/12/2018 with lasix use is now much better, less SOB but constipated 06/13 2018 patient continues to decline. He is now more short of breath, having cough and worsening mental status. Seems to responding to stimuli that is not present. relates that he is occasionally seeing a person walking in the room not there. During this visit wonders who was in the bathroom when no one else is there. Patient's 's questions are addressed. Objective - Vital Signs Vital signs: Vital Signs Temp 98.4 F 06/13/18 16:00 Pulse 110 H 06/13/18 16:00 Resp 18 06/13/18 16:00 BP 131/79 06/13/18 16:00 Pulse Ox 96 06/13/18 16:00 Intake & Output 06/13/18 06/13/18 06/14/18 06:59 18:59 06:59 Intake Total 230 Output Total 3101 903 Balance -3101 -673 Weight 95.5 kg Intake: Oral 230 Output: Urine 3100 900 Stool 1 3 Other: Voiding Method Indwelling Catheter Indwelling Catheter # Voids 0 - Exam 68-year-old male appears chronically ill, Enema was given and has had relief of constipation HEENT: Anicteric conjunctiva are pink and moist nasal mucosa grossly intact without significant lesions, there is no thrush. Neck: The neck is supple without significant lymphadenopathy or thyromegaly. Lungs: Symmetrical air entry however there are bibasilar crackles right greater than left expiratory wheezes are noted some basilar dullness is noted Heart: Regular rate and rhythm with an audible S1-S2, no S3 no S4. There is no significant murmur click or rub, PMI was nondisplaced. Abdomen: The abdomen is distended but soft generalized tenderness especially in the epigastrium Extremities: The upper extremities have excellent pulses they are symmetric, no significant petechiae or telangiectasia. No splinter hemorrhages were noted. less edema of legs Neuro: Awake alert oriented still has some mild confusion during the visit seemed to be responding stimuli that is not present, he wonders who is in the bathroom, there is no one else in the room - Labs CBC & Chem 7: 06/13/18 08:50 06/13/18 04:20 Labs: Abnormal Lab Results - Last 24 Hours (Table) 06/13/18 06/13/18 06/13/18 Range/Units 04:20 04:20 04:20 WBC 14.4 H (3.8-10.6) k/uL RBC 2.34 L (4.30-5.90) m/uL Hgb 7.7 L D (13.0-17.5) gm/dL Hct 24.1 L (39.0-53.0) % MCV 103.0 H (80.0-100.0) fL MCHC (31.0-37.0) g/dL RDW 18.2 H (11.5-15.5) % Neutrophils # 12.5 H (1.3-7.7) k/uL Lymphocytes # 0.3 L (1.0-4.8) k/uL Monocytes # 1.2 H (0-1.0) k/uL Sodium 131 L (137-145) mmol/L Carbon Dioxide 21 L (22-30) mmol/L BUN 37 H (9-20) mg/dL Creatinine 1.97 H (0.66-1.25) mg/dL Calcium 8.1 L (8.4-10.2) mg/dL Iron 18 L (65-175) ug/dL TIBC 203 L (228-460) ug/dL Iron Saturation 8.87 L (15.00-50.00) Ferritin 1292.7 H (22.0-322.0) ng/mL Total Bilirubin 2.7 H (0.2-1.3) mg/dL Alkaline Phosphatase 183 H (38-126) U/L Total Protein 4.2 L (6.3-8.2) g/dL Albumin 2.1 L (3.5-5.0) g/dL 06/13/18 Range/Units 08:50 WBC 14.2 H (3.8-10.6) k/uL RBC 2.60 L (4.30-5.90) m/uL Hgb 8.3 L (13.0-17.5) gm/dL Hct 26.8 L (39.0-53.0) % MCV 103.1 H (80.0-100.0) fL MCHC 30.9 L (31.0-37.0) g/dL RDW 18.1 H (11.5-15.5) % Neutrophils # 11.8 H (1.3-7.7) k/uL Lymphocytes # 0.5 L (1.0-4.8) k/uL Monocytes # 1.4 H (0-1.0) k/uL Sodium (137-145) mmol/L Carbon Dioxide (22-30) mmol/L BUN (9-20) mg/dL Creatinine (0.66-1.25) mg/dL Calcium (8.4-10.2) mg/dL Iron (65-175) ug/dL TIBC (228-460) ug/dL Iron Saturation (15.00-50.00) Ferritin (22.0-322.0) ng/mL Total Bilirubin (0.2-1.3) mg/dL Alkaline Phosphatase (38-126) U/L Total Protein (6.3-8.2) g/dL Albumin (3.5-5.0) g/dL Microbiology - Last 24 Hours (Table) 06/08/18 15:40 Blood Culture - Preliminary Blood No Growth after 120 hours Laboratory Results WBC 14.2 k/uL (3.8-10.6) H 06/13/18 08:50 RBC 2.60 m/uL (4.30-5.90) L 06/13/18 08:50 Hgb 8.3 gm/dL (13.0-17.5) L 06/13/18 08:50 Hct 26.8 % (39.0-53.0) L 06/13/18 08:50 MCV 103.1 fL (80.0-100.0) H 06/13/18 08:50 MCH 31.9 pg (25.0-35.0) 06/13/18 08:50 MCHC 30.9 g/dL (31.0-37.0) L 06/13/18 08:50 RDW 18.1 % (11.5-15.5) H 06/13/18 08:50 Plt Count 447 k/uL (150-450) 06/13/18 08:50 Neutrophils % 83 % 06/13/18 08:50 Neutrophils % (Manual) 88 % 06/08/18 11:32 Lymphocytes % 4 % 06/13/18 08:50 Lymphocytes % (Manual) 3 % 06/08/18 11:32 Monocytes % 10 % 06/13/18 08:50 Monocytes % (Manual) 7 % 06/08/18 11:32 Eosinophils % 0 % 06/13/18 08:50 Basophils % 0 % 06/13/18 08:50 Myelocytes % 2 % 06/08/18 11:32 Neutrophils # 11.8 k/uL (1.3-7.7) H 06/13/18 08:50 Neutrophils # (Manual) 22.26 k/uL (1.3-7.7) H 06/08/18 11:32 Lymphocytes # 0.5 k/uL (1.0-4.8) L 06/13/18 08:50 Lymphocytes # (Manual) 0.76 k/uL (1.0-4.8) L 06/08/18 11:32 Monocytes # 1.4 k/uL (0-1.0) H 06/13/18 08:50 Monocytes # (Manual) 1.77 k/uL (0-1.0) H 06/08/18 11:32 Eosinophils # 0.1 k/uL (0-0.7) 06/13/18 08:50 Basophils # 0.0 k/uL (0-0.2) 06/13/18 08:50 Myelocytes # (Manual) 0.51 k/uL (0) H 06/08/18 11:32 Nucleated RBCs 0 /100 WBC (0-0) 06/08/18 11:32 Manual Slide Review Performed 06/10/18 05:43 Toxic Vacuolation Present 06/10/18 05:43 Large Platelets Present 06/10/18 05:43 Polychromasia Present 06/10/18 05:43 Hypochromasia Marked 06/13/18 08:50 Poikilocytosis Slight 06/13/18 08:50 Anisocytosis Slight 06/13/18 08:50 Macrocytosis Moderate 06/13/18 08:50 PT 11.1 sec (9.0-12.0) 06/10/18 05:43 INR 1.0 (<1.2) 06/10/18 05:43 Sodium 131 mmol/L (137-145) L 06/13/18 04:20 Potassium 3.7 mmol/L (3.5-5.1) 06/13/18 04:20 Chloride 101 mmol/L (98-107) 06/13/18 04:20 Carbon Dioxide 21 mmol/L (22-30) L 06/13/18 04:20 Anion Gap 9 mmol/L 06/13/18 04:20 BUN 37 mg/dL (9-20) H 06/13/18 04:20 Creatinine 1.97 mg/dL (0.66-1.25) H 06/13/18 04:20 Est GFR (CKD-EPI)AfAm 39 (>60 ml/min/1.73 sqM) 06/13/18 04:20 Est GFR (CKD-EPI)NonAf 34 (>60 ml/min/1.73 sqM) 06/13/18 04:20 Glucose 81 mg/dL (74-99) 06/13/18 04:20 POC Glucose (mg/dL) 75 mg/dL (75-99) 06/10/18 05:31 POC Glu Lighting Director TOM Velvet Locke 06/10/18 05:31 Plasma Lactic Acid Paddy 2.0 mmol/L (0.7-2.0) 06/10/18 05:43 Uric Acid 4.8 mg/dL (3.5-8.5) 06/12/18 10:23 Calcium 8.1 mg/dL (8.4-10.2) L 06/13/18 04:20 Magnesium 1.7 mg/dL (1.6-2.3) 06/10/18 05:43 Iron 18 ug/dL (65-175) L 06/13/18 04:20 TIBC 203 ug/dL (228-460) L 06/13/18 04:20 Iron Saturation 8.87 (15.00-50.00) L 06/13/18 04:20 Ferritin 1292.7 ng/mL (22.0-322.0) H 06/13/18 04:20 Total Bilirubin 2.7 mg/dL (0.2-1.3) H 06/13/18 04:20 AST 46 U/L (17-59) 06/13/18 04:20 ALT 38 U/L (21-72) 06/13/18 04:20 Alkaline Phosphatase 183 U/L (38-126) H 06/13/18 04:20 Ammonia 12 umol/L (<30) 06/10/18 05:43 Total Protein 4.2 g/dL (6.3-8.2) L 06/13/18 04:20 Albumin 2.1 g/dL (3.5-5.0) L 06/13/18 04:20 Amylase 533 U/L (30-110) H* 06/08/18 11:32 Lipase 747 U/L (23-300) H 06/11/18 06:20 Urine Color Yellow 06/08/18 22:40 Urine Appearance Clear (Clear) 06/08/18 22:40 Urine pH 6.0 (5.0-8.0) 06/08/18 22:40 Ur Specific [place] >1.050 (1.001-1.035) H 06/08/18 22:40 Urine Protein 1+ (Negative) H 06/08/18 22:40 Urine Glucose (UA) Negative (Negative) 06/08/18 22:40 Urine Ketones Negative (Negative) 06/08/18 22:40 Urine Blood Negative (Negative) 06/08/18 22:40 Urine Nitrite Negative (Negative) 06/08/18 22:40 Urine Bilirubin Negative (Negative) 06/08/18 22:40 Urine Urobilinogen <2.0 mg/dL (<2.0) 06/08/18 22:40 Ur Leukocyte Esterase Negative (Negative) 06/08/18 22:40 Urine RBC 1 /hpf (0-5) 06/08/18 22:40 Urine WBC 3 /hpf (0-5) 06/08/18 22:40 Urine Bacteria Rare /hpf (None) H 06/08/18 22:40 Urine Mucus Many /hpf (None) H 06/08/18 22:40 Microbiology 06/08/18 15:40 Blood Blood Culture - Preliminary No Growth after 120 hours - Imaging and Cardiology Chest x-ray: image reviewed (increased atelectasis likely early infiltrate) Assessment and Plan (1) Acute pancreatitis Current Visit: Yes Status: Acute Code(s): K85.90 - ACUTE PANCREATITIS WITHOUT NECROSIS OR INFECTION, UNSP SNOMED Code(s): 196494872 (2) Pancreatic cancer Current Visit: Yes Status: Acute Code(s): C25.9 - MALIGNANT NEOPLASM OF PANCREAS, UNSPECIFIED SNOMED Code(s): 574680902 (3) Leukocytosis Narrative/Plan: 60-year-old male who has a history of pancreatic cancer was recently rehospitalized at which point in time he had a left lower lobe infiltration. He has completed his course of oral antibiotic therapy but is developed increasing nausea and emesis and progressive abdominal pain. Upon presentation to emergency center the patient has evidence of pancreatitis with hydration as her starting to show some improvement. Patient continues feeling very poorly. The patient did undergo a computed tomography scan fortunately reveals evidence of resolution of his pneumonia. However does appear that his underlying malignancy has progressed with new liver masses and evidence of carcinomatosis of the omentum. And development of ascites. This information is related to the patient and the . The oncology nurse practitioner has also been updated. At this time there does not appear to be an underlying infection but does have leukocytosis and constantly is monitor ed closely. But without evidence of phlegmon of the pancreas there is no indication for antibiotic therapy at this point in time. 06/09/2018 discussion occurred with the patient and the . Regretfully Eliquis was given today which will likely delay the therapeutic paracentesis. Which will also like to be a diagnostic for cytology. Pain control as per the oncology service. At this time remains without evidence of significant infection continue to monitor without antimicrobial therapy. No evidence of any phlegmon or pancreatic pseudocyst. Leukocytosis is multifactorial. 06/10/2018 the patient's leukocytosis is now improved to 12 today. He did have an event with what appeared to be some excessive narcotic effect from the doses of Dilaudid for be given because of his significant pain. The dosing was increased significantly yesterday. He is now on a more scheduled smaller dose. Ultrasound was performed in the peritoneal fluid is too loculated for a peritoneal tap. I discussed the case with gastroenterology and will advance his diet as does appear that his pancreatitis symptomatically is improving. With lack of fever, improving leukocytosis does not appear to have underlying infection. However the total bilirubin did increase and will monitored to assure does not continue to climb. If so within need consideration of antibiotics because of his history of recurrent cholangitis. Patient's is working diligently for him to get discharged home so she can take him for a second opinion possibly for further chemotherapy. 06/11/2018 patient continues to feel poorly. His shortness of breath is waxing and waning it is now considerably worse after his prostate exam which required him to bend which resulted in some compression to his diaphragms resulting in some residual and ongoing shortness of breath. He has had improvement with the shortness of breath and pains with Dilaudid and another doses given at this time. The patient has had difficulty with increased creatinine and consequently is receiving some fluids trying to improve his renal function. It is explained to the patient's that Lasix will help remove some fluid however these have improved intravascular volume for diuretic is given so no further damage is done. Patient's oxygen saturation is 99% on 2 L, oxygen has helped relieve his shortness of breath some. The patient is being closely monitored by his oncologist and the primary staff. There was some difficulties with his [place] morning is now been readjusted and he is much more comfortable. Laboratory count is waxing and waning in today is again increased to 23.4 it was 12.2. The creatinine did go from 0.79-1.87. Total bilirubin decreased to 1.9 and lipase was down to 747. His chest x-ray showed evidence of the left pleural effusion without evidence of new pneumonic infiltration. An abdominal x-ray failed to reveal a small bowel obstruction. This information is related and will continue to monitor for any concerns to underlying infection. 06/12/2018 better with lasix less SOB but constipated if now relief consider La ctulose 06/13/2018 the patient's constipation has now resolved with the enema of last night. Illnesses allowing some improvement discomfort he still has increasing ascites and abdominal distention. Ultrasound performed today shows evidence of the 4 quadrant ascites. The patient's has talked to oncology and has agreed to the no CODE STATUS which is absolutely appropriate at this time. The patient does have worsening of his pulmonary status. He is more short of breath, there is atelectasis and likely early infiltrate on the chest x-ray. We'll initiate meropenem which will give coverage for pneumonia. Patient's bilirubin also markedly increased and constantly there is also recurrent concerned to infection related to biliary tract. If the patient's declining status course of antibiotic therapy will be attempted. The patient's understands today the advanced nature of the patient's disease. Patient is having very rapid decline of his status. Current Visit: Yes Status: Acute Code(s): D72.829 - ELEVATED WHITE BLOOD CELL COUNT, UNSPECIFIED SNOMED Code(s): 610284229
[2018-06-14] MEDS ORDERED: methylPREDNISolone SOD SUCCI 40 MG/ML 1 ML VIAL IV SCH
[2018-06-14] MEDS: HYDROmorphone 0.5 MG/0.5 ML SYRINGE IVP PRN ×4 (02:43→17:11)
--- NOTE | 2018-06-14 04:32 | PN ---
PROGRESS NOTE DATE OF SERVICE: June 13, 2018 PRESENTING COMPLAINT: Tired, lethargic. INTERVAL HISTORY: This is a patient with a rather extensive complex history. The patient has a diagnosis of ampulla of Vater adenocarcinoma with metastasis. Workup during this hospitalization shows progression of disease to the omentum and increasing ascites. The patient also had been on Eliquis for bilateral pulmonary embolism. The patient was recently treated for influenza A infection. This admission, patient also found to have acute pancreatitis. The patient also found to be in acute renal failure from ATN, a combination of nonsteroidals and contrast nephropathy. The patient also has a Molina catheter in place. The patient's appetite has been poor. Patient is started on Megace. The patient's last bowel movement was about 7 days ago. Enema really did not put on any much of a help. Also received lactulose today. Nausea is quite a bit persisting. The patient has set up in the chair yesterday. Fentanyl patch was started today 25 mcg and patient has been pretty much in bed today, rather drowsy, lethargic and hardly awakening. Oral intake has gone down. Dr. Spivey earlier started the patient on meropenem for possible pneumonia. The patient's is at the bedside. Dr. Chavarria requested me to take over the care of the patient from today as per family request. REVIEW OF SYSTEMS: Done for constitutional, cardiovascular, GI, pulmonary; relevant findings as above. The patient is rather lethargic and dozes off during interview. CURRENT MEDICATIONS: Reviewed that include DuoNeb, Eliquis, Duragesic 25 patch, IV Lasix 20 mg, Dilaudid, Synthroid, Ativan, Megace, IV meropenem, Flomax, Actigall. PHYSICAL EXAMINATION: VITAL SIGNS: Temperature, pulse 112, respirations 16, blood pressure 127/73, pulse ox 96% on room air. GENERAL APPEARANCE: Well built, BMI 34. Lying in bed lethargic, but arousable. EYES: Pupils equal. Conjunctivae pale. HEENT: External appearance of nose and ears normal. Oral cavity normal. NECK: JVD unable to assess. Mass not palpable. RESPIRATORY: Effort normal. LUNGS: Diminished breath sounds. CARDIOVASCULAR: First and second sounds normal. Edema present. ABDOMEN distended. Mild tenderness. No guarding or rigidity, dull. PSYCHIATRY: Patient can answer some questions, but dozes off. NEUROLOGICAL: Moving all 4 limbs. INVESTIGATIONS: White count 14.2, hemoglobin 8.3, platelets 447, potassium 37, creatinine 1.97. It was normal on June 10, 2018. Total bilirubin is 2.7, alkaline phosphatase 183, albumin 2.1. Abdominal ultrasound show mild ascites. Chest x-ray film personally reviewed by me shows cardiomegaly and some pleural effusion. ASSESSMENT: 1. 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 The patient had been receiving chemotherapy. 2. Chronic bilateral pulmonary embolism for which chronically patient is on Eliquis. 3. Acute pancreatitis on admission. 4. Protein calorie malnutrition, moderate, associated with hypoalbuminemia from decreased oral intake. 5. Hypothyroidism. 6. Acute renal failure acute tubular necrosis, slow to respond. Combination of contrast nephropathy and NSAIDs. 7. Acute metabolic encephalopathy probably from pain medications including patient is started on fentanyl today and also getting Dilaudid. 8. Opioid induced constipation and from decreased mobility. Patient is not responding to current laxative. 9. Possible pneumonia. The patient is started on meropenem. 10.Obesity; BMI 34. 11.Suspect intravascular depletion and patient is third-spacing from hypoalbuminemia which appears to be poor prognosis. PLAN: I had a very lengthy talk with the patient's at the bedside. Yes pain control is important, but given the Dilaudid and fentanyl patch patient has become more lethargic and we may have to scale back on the fentanyl patch tomorrow and use K-pads where the patient complains of rib pain on both sides and see if that helps. Also we will add Metamucil for a bowel movement. Otherwise, patient's prognosis is guarded. CODE STATUS IS DO NOT RESUSCITATE. Patient has been negative fluid balance. Remains on IV Lasix. Total time spent today was about 45 minutes with over 30 minutes of discussion. MMODL / IJN: [id number] /
[2018-06-14 06:24] LABS: Anisocytosis Slight; HCT 25.3 % (39.0-53.0); HGB 7.9 gm/dL (13.0-17.5); Hypochromasia Marked; MCH 32.3 pg (25.0-35.0); MCHC 31.4 g/dL (31.0-37.0); MCV 102.7 fL (80.0-100.0); Macrocytosis Moderate; Platelet Count 420 k/uL (150-450); Poikilocytosis Slight; RBC 2.46 m/uL (4.30-5.90); RDW 18.1 % (11.5-15.5); WBC 14.5 k/uL (3.8-10.6)
[2018-06-14 06:25] LABS: Albumin 2.3 g/dL (3.5-5.0); Calcium 8.3 mg/dL (8.4-10.2); Potassium 3.3 mmol/L (3.5-5.1); Total Bilirubin 4.3 mg/dL (0.2-1.3); Total Protein 4.5 g/dL (6.3-8.2)
[2018-06-14 06:46] LABS: Band Neutrophils % 9 %; Eosinophils # (M) 0.15 k/uL (0-0.7); Lymphocytes # (M) 0.44 k/uL (1.0-4.8); Metamyelocytes # (M) 0.15 k/uL (0); Metamyelocytes % 1 %; Monocytes # (M) 1.45 k/uL (0-1.0); Neutrophils % (M) 77 %; Nucleated Red Blood Cells 0 /100 WBC (0-0); Total Cells Counted 200
[2018-06-14 06:47] LABS: Polychromasia Present
[2018-06-14] MEDS: LEVOTHYROXINE 100 MCG TAB PO SCH (07:14)
[2018-06-14] MEDS: IPRATROPIUM-ALBUTEROL 3 ML NEB INHALATION PRN (07:25)
[2018-06-14] MEDS ORDERED: IPRATROPIUM-ALBUTEROL 3 ML NEB INHALATION SCH (08:00)
--- NOTE | 2018-06-14 08:18 | XR ---
EXAMINATION TYPE: XR chest 1V DATE OF EXAM: 06/14/2018 COMPARISON: 06/13/2018 HISTORY: 68-year-old male ICU follow-up TECHNIQUE: Single frontal view of the chest is obtained. FINDINGS: Left anterior chest wall injection port with catheter tip at the caval atrial junction. Lung volumes remain low. Heart size likely accentuated due to low lung volumes. Continued small left effusion with patchy left basilar and strandy right basilar density. IMPRESSION: Continued hypoventilatory changes along with small left pleural effusion with adjacent atelectasis an d/or consolidation.
--- NOTE | 2018-06-14 08:52 | US ---
EXAMINATION TYPE: US kidneys/renal and bladder DATE OF EXAM: 06/14/2018 COMPARISON: US CLINICAL HISTORY: 68-year-old male increased renal function, carcinomatosis vs fluid; patient's stated patient has pancreatic CA with metastasis to liver; jaundice, ascites Forcer Maker notes: EXAM MEASUREMENTS: US is technically limited as patient was scanned in bedside chair with history of rib pain, Right Kidney: 8.5 x 5.8 x 5.0 cm Left Kidney: 9.0 x 5.0 x 5.3 cm Post Void Residual Volume: not assessed as bladder catheter is present Right Kidney: No hydronephrosis. Left Kidney: No hydronephrosis. Bladder: echogenic parallel bladder catheter lines are seen; sanford are not well discerned due to asci alexys. IMPRESSION: Very limited assessment and visualization due to the patient's condition. No deepali hydronephrosis is identified. Underlying mild ascites fluid.
[2018-06-14] MEDS: DOCUSATE 100 MG CAP PO SCH ×2 (09:20→21:31)
[2018-06-14] MEDS: FLUTICASONE 50MCG/SPRAY NASAL 16GM EA NOSTRIL SCH (09:20)
[2018-06-14] MEDS: SODIUM BICARBONATE TAB 650 MG TAB PO SCH ×4 (09:21→21:31)
[2018-06-14] MEDS: FUROSEMIDE 10 MG/ML 2 ML VIAL IV SCH ×2 (09:21→21:31)
[2018-06-14] MEDS: TAMSULOSIN 0.4 MG CAP.ER.24H PO SCH (09:21)
[2018-06-14] MEDS: PSYLLIUM HUSK 100% 6 GM PACKET PO SCH ×2 (09:21→21:31)
[2018-06-14] MEDS: MEGESTROL 40 MG TAB PO SCH ×4 (09:21→21:31)
[2018-06-14] MEDS: URSODIOL 300 MG CAP PO SCH ×2 (09:22→21:31)
[2018-06-14] MEDS: MEROPENEM 1 GM in SODIUM CHLORIDE 0.9% 100 ML IVPB SCH ×2 (09:32→21:30)
[2018-06-14] MEDS ORDERED: POTASSIUM CHLORIDE ER 20 MEQ TAB.ER PO STA (10:00)
--- NOTE | 2018-06-14 10:55 | P.PN ---
Subjective Patient is seen in follow-up for acute kidney injury. Creatinine peaked at 2.01 and is 1.74 today. Baseline creatinine near 1. He has a Molina catheter for urinary retention. Urine output has been good. Oral intake is poor. Currently being treated for acute pancreatitis. He is on a full liquid diet. No chest pain or shortness of breath. Does have a cough. Vital signs are stable. General: The patient appeared well nourished and normally developed. HEENT: Head exam is unremarkable. Neck is without jugular venous distension. LUNGS: Lungs are clear to auscultation and percussion. Breath sounds decreased. HEART: Rate and Rhythm are regular. First and second heart sounds normal. No murmurs, rubs or gallops. ABDOMEN: Abdominal exam reveals normal bowel sounds. Non-tender and non- distended. No evidence of peritonitis. EXTREMITITES: 1+ edema. Objective - Vital Signs Vital signs: Vital Signs Temp 98.2 F 06/14/18 08:00 Pulse 111 H 06/14/18 08:00 Resp 18 06/14/18 08:00 BP 104/59 06/14/18 08:00 Pulse Ox 97 06/14/18 08:00 Intake & Output 06/13/18 06/14/18 06/14/18 18:59 06:59 18:59 Intake Total 230 300 210 Output Total 903 1202 Balance -673 -902 210 Weight 94.8 kg Intake: IV 30 10 Invasive Line 2 30 10 Intake, IV Titration 150 Amount Albumin Human 25% 50 ml 50 In Empty Bag 1 bag @ 50 mls/hr IVPB BID MAGDY Rx#: [id number] Meropenem 1 gm In Sodium 100 Chloride 0.9% 100 ml @ 200 mls/hr IVPB Q8HR MAGDY Rx#:[id number] Oral 230 120 200 Output: Urine 900 1200 Stool 3 2 Other: Voiding Method Indwelling Catheter Indwelling Catheter Indwelling Catheter # Voids 0 - Labs CBC & Chem 7: 06/14/18 06:00 06/14/18 06:00 Labs: Abnormal Lab Results - Last 24 Hours (Table) 06/13/18 06/14/18 06/14/18 Range/Units 04:20 06:00 06:00 WBC 14.5 H (3.8-10.6) k/uL RBC 2.46 L (4.30-5.90) m/uL Hgb 7.9 L (13.0-17.5) gm/dL Hct 25.3 L (39.0-53.0) % MCV 102.7 H (80.0-100.0) fL RDW 18.1 H (11.5-15.5) % Neutrophils # (Manual) 12.40 H (1.3-7.7) k/uL Lymphocytes # (Manual) 0.44 L (1.0-4.8) k/uL Monocytes # (Manual) 1.45 H (0-1.0) k/uL Metamyelocytes # (Man) 0.15 H (0) k/uL Sodium 133 L (137-145) mmol/L Potassium 3.3 L (3.5-5.1) mmol/L BUN 37 H (9-20) mg/dL Creatinine 1.74 H (0.66-1.25) mg/dL Calcium 8.3 L (8.4-10.2) mg/dL Iron 18 L (65-175) ug/dL TIBC 203 L (228-460) ug/dL Iron Saturation 8.87 L (15.00-50.00) Ferritin 1292.7 H (22.0-322.0) ng/mL Total Bilirubin 4.3 H (0.2-1.3) mg/dL Alkaline Phosphatase 177 H (38-126) U/L Total Protein 4.5 L (6.3-8.2) g/dL Albumin 2.3 L (3.5-5.0) g/dL Lipase 719 H (23-300) U/L Microbiology - Last 24 Hours (Table) 06/08/18 15:40 Blood Culture - Preliminary Blood No Growth after 120 hours Assessment and Plan Plan: Assessment: 1. Acute kidney injury secondary to ATN secondary to contrast-induced nephropathy, nonsteroidals. Also component of urinary retention. Baseline creatinine near 1. Creatinine peaked at 2.01 this admission and is 1.74 today. No hydronephrosis noted on kidney ultrasound. Kidneys are relatively small in size. 2. Urinary retention status post Molina catheter placement. 3. Hyponatremia. Currently hypervolemic. Better. 4. Metastatic pancreatic cancer. Noted to have liver and omental metastasis. Patient receiving chemotherapy as an outpatient. Last dose on 05/18/2018. 5. Metabolic acidosis secondary to acute kidney injury. Maintained on oral sodium bicarbonate. Better. 6. Volume overload. Albumin level noted to be low. Gradually improving. 7. Acute pancreatitis. 8. Hypokalemia secondary to diuresis. Magnesium normal. 9. Anemia. Severe iron deficiency noted. Plan: Maintain Lasix 20 mg IV twice daily. IV iron 3 doses. First dose today. Replace potassium. 40 mEq today. Maintain Molina catheter. Repeat electrolytes in the morning. If patient goes for paracentesis, I will give him 25 g of albumin prior to the procedure. He is to get an additional 25 g if more than 4 L removed.
[2018-06-14] MEDS: SODIUM FERRIC GLUCONAT-SUCROSE 125 MG in SODIUM CHLORIDE 0.9% 100 ML IVPB SCH (12:29)
[2018-06-14] MEDS: APIXABAN 5 MG TAB PO SCH ×2 (14:01→21:31)
[2018-06-14] MEDS ORDERED: VANCOMYCIN IV PER PHARMACY 1 EACH MISC MISCELLANE PRN (17:49)
[2018-06-14] MEDS: HYDROmorphone 1 MG/ML 1 ML SYRINGE IVP PRN ×2 (18:08→21:38)
[2018-06-14] MEDS: LORazepam 2 MG/ML INJ IV PRN (18:15)
[2018-06-14] MEDS ORDERED: VANCOMYCIN 1,750 MG in SODIUM CHLORIDE 0.9% 500 ML 500 ML IVPB SCH (19:00)
--- NOTE | 2018-06-14 20:17 | P.PN ---
Subjective Progress Note Date: 06/14/18 Principal diagnosis: Pancreatic Cancer Patient Ca19-9 has spiked, 140, ultrasounds fail to how increased fluid ascites, concern is increased progressive cancer. bilirubin worsening, increased lethargy Objective - Vital Signs Vital signs: Vital Signs Temp 98.4 F 06/14/18 15:56 Pulse 116 H 06/14/18 16:00 Resp 16 06/14/18 15:56 BP 92/64 06/14/18 15:56 Pulse Ox 94 L 06/14/18 15:56 Intake & Output 06/14/18 06/14/18 06/15/18 06:59 18:59 06:59 Intake Total 300 350 Output Total 1202 Balance -902 350 Weight 94.8 kg Intake: IV 30 30 Invasive Line 2 30 30 Intake, IV Titration 150 Amount Albumin Human 25% 50 ml 50 In Empty Bag 1 bag @ 50 mls/hr IVPB BID MAGDY Rx#: [id number] Meropenem 1 gm In Sodium 100 Chloride 0.9% 100 ml @ 200 mls/hr IVPB Q8HR MAGDY Rx#:[id number] Oral 120 320 Output: Urine 1200 Stool 2 Other: Voiding Method Indwelling Catheter Indwelling Catheter - Exam Gen: Alert, Mild Distress with pain, relieved after breakthrough dilaudid given Head: NC/NT Mouth: Thrush thick tongue and posterior pharynx Neck: SUpple LN: No palpable lymph nodes cervical, supraclavicular, axillary, or submandibular Mouth: Scant thrush, Mild erythemia posterior pharynx Lungs: Diminished bibasilar bases, no wheezes or rhonchi. Mild increased effort noted with conversation Heart: Tachy APical 127 - Regular (EKG COnfirmed) Abdomen: Firm, DIstended, Tender to palpation Extremities: BLE Edema L>R Neuro: No sensory or motor deficits notes Psych: Anxious, conversation appropriate - Labs CBC & Chem 7: 06/14/18 06:00 06/14/18 06:00 Labs: Abnormal Lab Results - Last 24 Hours (Table) 06/14/18 06/14/18 06/14/18 Range/Units 06:00 06:00 06:00 WBC 14.5 H (3.8-10.6) k/uL RBC 2.46 L (4.30-5.90) m/uL Hgb 7.9 L (13.0-17.5) gm/dL Hct 25.3 L (39.0-53.0) % MCV 102.7 H (80.0-100.0) fL RDW 18.1 H (11.5-15.5) % Neutrophils # (Manual) 12.40 H (1.3-7.7) k/uL Lymphocytes # (Manual) 0.44 L (1.0-4.8) k/uL Monocytes # (Manual) 1.45 H (0-1.0) k/uL Metamyelocytes # (Man) 0.15 H (0) k/uL Sodium 133 L (137-145) mmol/L Potassium 3.3 L (3.5-5.1) mmol/L BUN 37 H (9-20) mg/dL Creatinine 1.74 H (0.66-1.25) mg/dL Calcium 8.3 L (8.4-10.2) mg/dL Total Bilirubin 4.3 H (0.2-1.3) mg/dL Alkaline Phosphatase 177 H (38-126) U/L Total Protein 4.5 L (6.3-8.2) g/dL Albumin 2.3 L (3.5-5.0) g/dL Lipase 719 H (23-300) U/L CA 19-9 Antigen 140.0 H (0.0-34.9) U/mL Microbiology - Last 24 Hours (Table) 06/08/18 15:40 Blood Culture - Final Blood No Growth after 144 hours Assessment and Plan (1) Acute pancreatitis Current Visit: Yes Status: Acute Code(s): K85.90 - ACUTE PANCREATITIS WITHOUT NECROSIS OR INFECTION, UNSP SNOMED Code(s): 091618616 (2) Pancreatic cancer Current Visit: Yes Status: Acute Code(s): C25.9 - MALIGNANT NEOPLASM OF PANCREAS, UNSPECIFIED SNOMED Code(s): 011480680 (3) Elevated amylase and lipase Current Visit: No Status: Acute Priority: High Code(s): R74.8 - ABNORMAL LEVELS OF OTHER SERUM ENZYMES SNOMED Code(s): 728970292 (4) Ascites Current Visit: Yes Status: Acute Code(s): R18.8 - OTHER ASCITES SNOMED Code(s): 635747281 Plan: Assessment and Recommendations: Metastatic Pancreatic Cancer: - Recent CT scans 06/08/18 with probable progression; concern for new right he patic and post hepatic lesions, new and enlarging gastrohepatic lymph nodes, concern for carcinamatosis, increased abdominal ascites. - Long discussion with patient and , Dr. Dominguez's recommendations for evaluation of clinical trials [facility] with Ronaldo Norris. Patient ans very apprehensive to seek clinical trial at this time and have contacted a second opinion physician in which they wish to meet prior to heading to [place]. - We will assist in medical records to [facility] and/or Second opinion to help expedite this evaluation Acute Pancreatitis: - Bowel rest and slow advancement of diet - GI is following - Serial Pancreatic Enzymes are trending down - IV Antibiotics Symptomatic Abdominal Ascites: - Eliquis has been placed on hold in anticipation of paracentesis, will ask for cytology and fluid studies on para fluid - I have contacted IR to assist in expediting this as he is quit symptomatic with pain and shortness of breath. - IR has attempted but due to lack of fluid unable to obtain fluid from peritoneum, feel this maybe secondary carcinamatosis Urinary Retentions: - Primary Team - Cultures Pending - Decreased urinary output - Urology has been consulted Neoplastic Related Pain: - Continue current breakthrough pain medication and symptom control Constipation: - Increased bowel regimen for narcotic induced constipation Recent Admissions for Influenza A and Pneumonia - Resolved HX: Pulmonary Embolism: - On Eliquis, Hold till after Paracentesis HX: Recurrent Biliary Stent Obstructions and Infections Acute Hypoxic respiratory Failure: Acute renal insufficiency: - Nephrology FOllowing Had a long discussion about goals of care and code status today. We discussed all parts in detail related to DNR, code status PLan: - Long discussion related to quick growing metastatic cancer and overall poor prognosis, hospice appropriate Yuliana PAYNEP Physician Attest: I have completed the full history and physical and agree with above dictation, dictated as a scribe
[2018-06-14] MEDS: MELATONIN 3 MG TABLET PO SCH (21:31)
--- NOTE | 2018-06-14 22:04 | PN ---
PROGRESS NOTE DATE OF SERVICE: 06/14/2018 PRESENTING COMPLAINT: Tired. INTERVAL HISTORY: This is a patient with worsening ampulla of Vater adenocarcinoma with metastasis and clinically worsening. This morning, because the patient was drowsy, patient's requested that the fentanyl patch be taken off. In the morning the patient did sit up on a chair and had oatmeal and some apple juice. Later when I came to see him, the patient was resting. He also received an enema with a good bowel movement. REVIEW OF SYSTEMS: Review of systems could not be done, as the patient was tired. CURRENT MEDICATIONS: Reviewed. They include Dilaudid p.r.n., IV meropenem, vancomycin. PHYSICAL EXAMINATION: Temperature 98.4, pulse 116, respiration 16, blood pressure 92/64, pulse ox 94% on room air. GENERAL APPEARANCE: Lying in bed. Lethargic. EYES: Pupils equal. Conjunctivae pale. NECK: JVD unable to assess. Mass not palpable. RESPIRATORY: Effort normal. LUNGS: Diminished breath sounds. CARDIOVASCULAR: First and second sounds normal. Edema present. ABDOMEN: Distended. Tender. No guarding or rigidity. PSYCHIATRY: Lethargic but arousable. INVESTIGATIONS: White count 14.5, hemoglobin 7.9, potassium 3.3, BUN 37, creatinine 1.74, lipase 719. CA 19-9 140. Abdominal ultrasound showed minimal ascites. ASSESSMENT: 1. 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 Patient is status post chemotherapy. 2. Chronic bilateral pulmonary embolism, for which patient is chronically on Eliquis. 3. Acute pancreatitis on admission. 4. Protein-calorie malnutrition, moderate, associated with hypoalbuminemia from decreased oral intake. 5. Hypothyroidism. 6. Acute renal failure, acute tubular necrosis, slow to respond; combination of contrast nephropathy and non-steroidal anti-inflammatories. 7. Acute metabolic encephalopathy, probably from pain medications, including being on fentanyl patch and Dilaudid. 8. Opioid-induced constipation from decreased mobility. Did respond to enema. 9. Possible pneumonia. Patient is on meropenem. 10.Obesity; body mass index 34. 11.Suspect intravascular volume depletion, and patient has also third-spacing from severe hypoalbuminemia. PLAN: I spoke to Dr. Oliver, who had earlier spoken to the patient and his and did say that eventually not much option left, as patient is declining, and even broached the idea of possible hospice, depending on clinical course. Later I got a call from the nurse that the patient wants to talk about and see about hospice. ADVANCED CARE PLANNING: I had a very lengthy talk with the patient and a family friend who was present and embarked upon the full topic of hospice. Several aspects of care were discussed. The patient's nutrition will be purely comfort feeding. The patient did eat oatmeal and juice earlier today. For pain control the patient will continue to get Dilaudid and fentanyl patch if needed. Also Roxanol will be needed. The patient's has finally decided to take the patient home tomorrow and a hospital bed will be arranged. CODE STATUS is DO NOT RESUSCITATE. The patient's family will be coming in. Other aspects of his care were discussed. [facility] is being consulted for the same. Several other questions were answered. They will call me if any further help is needed. Total time spent for advanced care planning was about 25-30 minutes. ROSEANNA / ELION: [id number] /
--- NOTE | 2018-06-14 23:12 | P.PN ---
Subjective Progress Note Date: 06/14/18 This is a 67-year-old male patient well known to ID service as he has had previous bouts of E. coli sepsis related to obstruction of his biliary track. 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 There is evidence of bilateral pulmonary emboli without much symptom is being treated with Eliquis. Patient gives history of influenza A with admission 05/09/2018. Patient states he recovered from the influenza but then developed a cough with thick white sputum production that has been going on for about one week. He also had 1 documented fever at home and came into [facility] emergency center for evaluation. He was febrile with a temperature 102.8, white count 1.5, creatinine 0.93. Lactic acid 3.5 and he is status post 3 L of IV fluid. Albumin 2.6. Influenza negative. Urinalysis was cloudy with calcium oxalate crystals, rare bacteria and hyaline casts. Chest x-ray a left lower lobe infiltration. The patient had some leukopenia which was improving as his pneumonia was treated. He was discharged home to complete a course of cefuroxime to be reevaluated for restarting his chemotherapy. Patient over was not feeling well with a couple of days. He developed some nausea and some emesis and poor oral intake. He had 3 doses of cefuroxime left and was requested to complete them if possible. The patient however now had worsening presented to the emergency center because his nausea and emesis or worsening was having some increasing abdominal pain. Amylase and lipase were elevated and calcium was admitted for treatment of pancreatitis with GI rest and hydration. Infectious diseases follow-up was requested. 06/09/2018 patient is feeling very poorly. Patient's is present. The case is discussed with oncology as well as gastroenterology. The patient is quite uncomfortable with the ascites and diagnostic and therapeutic paracentesis is likely to be done. The patient's Eliquis was placed on hold last evening. However it is related to the patient's insisted that he received his dose this morning and Eliquis was given. The patient also had developed some urinary retention and straight catheterization was performed the patient continued to have retention and Molina catheter was placed. Still having sever abdominal pain some relief from Dilaudid. 06/10/2018 the patient did have an A-team called today. After 1.5 mg of Dilaudid that was given for his unremitting pain he developed hypotension and tachycardia and hypoxia. Responded well to treatment but was moved to selective care. It is noted ultrasound was performed which failed to reveal evidence of a large enough amount of ascites for paracentesis. Patient's pain has been very difficult and is now on a more regular schedule. Close monitoring for oversedation is in process. 06/11/2018 patient continues to have ongoing difficulties. With the utilization of Dilaudid for his pain control he started becoming more unstable and although was in the room and assisting him he did suffer a fall. No particular injury occurred. The patient is no more short of breath after he's been examined by the urologist who found his enlarged prostate. Likely etiology of his urinary retention. However after bending for the procedure this is increased his dyspnea. The patient's is becoming upset because of her concerns about his status. Patient however remains without fever or chills. He has not developed jaundice. He is having no nausea or emesis but with his extensive abdominal distention has a very poor appetite. The diet was advanced and he is tolerating this quite well. 06/12/2018 with lasix use is now much better, less SOB but constipated 06/13 2018 patient continues to decline. He is now more short of breath, having cough and worsening mental status. Seems to responding to stimuli that is not present. relates that he is occasionally seeing a person walking in the room not there. During this visit wonders who was in the bathroom when no one else is there. Patient's 's questions are addressed. 06/14/2018 is at the patient's status is continued to worsen. DO NOT RESUSCITATE has been initiated and discussion about hospice is progressing. Objective - Vital Signs Vital signs: Vital Signs Temp 98.4 F 06/14/18 15:56 Pulse 116 H 06/14/18 16:00 Resp 16 06/14/18 15:56 BP 92/64 06/14/18 15:56 Pulse Ox 94 L 06/14/18 15:56 Intake & Output 06/14/18 06/14/18 06/15/18 06:59 18:59 06:59 Intake Total 300 350 Output Total 1202 Balance -902 350 Weight 94.8 kg Intake: IV 30 30 Invasive Line 2 30 30 Intake, IV Titration 150 Amount Albumin Human 25% 50 ml 50 In Empty Bag 1 bag @ 50 mls/hr IVPB BID MAGDY Rx#: [id number] Meropenem 1 gm In Sodium 100 Chloride 0.9% 100 ml @ 200 mls/hr IVPB Q8HR MAGDY Rx#:[id number] Oral 120 320 Output: Urine 1200 Stool 2 Other: Voiding Method Indwelling Catheter Indwelling Catheter - Exam 68-year-old male appears chronically ill, Enema was given and has had relief of constipation HEENT: The patient is now developing jaundice nasal mucosa grossly intact without significant lesions, there is no thrush. Neck: The neck is supple without significant lymphadenopathy or thyromegaly. Lungs: Symmetrical air entry however there are bibasilar crackles right greater than left expiratory wheezes are noted some basilar dullness is noted Heart: Regular rate and rhythm with an audible S1-S2, no S3 no S4. There is no significant murmur click or rub, PMI was nondisplaced. Abdomen: The abdomen is distended but soft generalized tenderness especially in the epigastrium Extremities: The upper extremities have excellent pulses they are symmetric, no significant petechiae or telangiectasia. No splinter hemorrhages were noted. less edema of legs Neuro: Arousable but with confusion - Labs CBC & Chem 7: 06/14/18 06:00 06/14/18 06:00 Labs: Abnormal Lab Results - Last 24 Hours (Table) 06/14/18 06/14/18 06/14/18 Range/Units 06:00 06:00 06:00 WBC 14.5 H (3.8-10.6) k/uL RBC 2.46 L (4.30-5.90) m/uL Hgb 7.9 L (13.0-17.5) gm/dL Hct 25.3 L (39.0-53.0) % MCV 102.7 H (80.0-100.0) fL RDW 18.1 H (11.5-15.5) % Neutrophils # (Manual) 12.40 H (1.3-7.7) k/uL Lymphocytes # (Manual) 0.44 L (1.0-4.8) k/uL Monocytes # (Manual) 1.45 H (0-1.0) k/uL Metamyelocytes # (Man) 0.15 H (0) k/uL Sodium 133 L (137-145) mmol/L Potassium 3.3 L (3.5-5.1) mmol/L BUN 37 H (9-20) mg/dL Creatinine 1.74 H (0.66-1.25) mg/dL Calcium 8.3 L (8.4-10.2) mg/dL Total Bilirubin 4.3 H (0.2-1.3) mg/dL Alkaline Phosphatase 177 H (38-126) U/L Total Protein 4.5 L (6.3-8.2) g/dL Albumin 2.3 L (3.5-5.0) g/dL Lipase 719 H (23-300) U/L CA 19-9 Antigen 140.0 H (0.0-34.9) U/mL Microbiology - Last 24 Hours (Table) 06/08/18 15:40 Blood Culture - Final Blood No Growth after 144 hours Laboratory Results WBC 14.5 k/uL (3.8-10.6) H 06/14/18 06:00 RBC 2.46 m/uL (4.30-5.90) L 06/14/18 06:00 Hgb 7.9 gm/dL (13.0-17.5) L 06/14/18 06:00 Hct 25.3 % (39.0-53.0) L 06/14/18 06:00 MCV 102.7 fL (80.0-100.0) H 06/14/18 06:00 MCH 32.3 pg (25.0-35.0) 06/14/18 06:00 MCHC 31.4 g/dL (31.0-37.0) 06/14/18 06:00 RDW 18.1 % (11.5-15.5) H 06/14/18 06:00 Plt Count 420 k/uL (150-450) 06/14/18 06:00 Neutrophils % 83 % 06/13/18 08:50 Neutrophils % (Manual) 77 % 06/14/18 06:00 Band Neutrophils % 9 % 06/14/18 06:00 Lymphocytes % 4 % 06/13/18 08:50 Lymphocytes % (Manual) 3 % 06/14/18 06:00 Monocytes % 10 % 06/13/18 08:50 Monocytes % (Manual) 10 % 06/14/18 06:00 Eosinophils % 0 % 06/13/18 08:50 Eosinophils % (Manual) 1 % 06/14/18 06:00 Basophils % 0 % 06/13/18 08:50 Metamyelocytes % 1 % 06/14/18 06:00 Myelocytes % 2 % 06/08/18 11:32 Neutrophils # 11.8 k/uL (1.3-7.7) H 06/13/18 08:50 Neutrophils # (Manual) 12.40 k/uL (1.3-7.7) H 06/14/18 06:00 Lymphocytes # 0.5 k/uL (1.0-4.8) L 06/13/18 08:50 Lymphocytes # (Manual) 0.44 k/uL (1.0-4.8) L 06/14/18 06:00 Monocytes # 1.4 k/uL (0-1.0) H 06/13/18 08:50 Monocytes # (Manual) 1.45 k/uL (0-1.0) H 06/14/18 06:00 Eosinophils # 0.1 k/uL (0-0.7) 06/13/18 08:50 Eosinophils # (Manual) 0.15 k/uL (0-0.7) 06/14/18 06:00 Basophils # 0.0 k/uL (0-0.2) 06/13/18 08:50 Metamyelocytes # (Man) 0.15 k/uL (0) H 06/14/18 06:00 Myelocytes # (Manual) 0.51 k/uL (0) H 06/08/18 11:32 Nucleated RBCs 0 /100 WBC (0-0) 06/14/18 06:00 Manual Slide Review Performed 06/14/18 06:00 Toxic Vacuolation Present 06/10/18 05:43 Large Platelets Present 06/10/18 05:43 Polychromasia Present 06/14/18 06:00 Hypochromasia Marked 06/14/18 06:00 Poikilocytosis Slight 06/14/18 06:00 Anisocytosis Slight 06/14/18 06:00 Macrocytosis Moderate 06/14/18 06:00 PT 11.1 sec (9.0-12.0) 06/10/18 05:43 INR 1.0 (<1.2) 06/10/18 05:43 Sodium 133 mmol/L (137-145) L 06/14/18 06:00 Potassium 3.3 mmol/L (3.5-5.1) L 06/14/18 06:00 Chloride 101 mmol/L (98-107) 06/14/18 06:00 Carbon Dioxide 22 mmol/L (22-30) 06/14/18 06:00 Anion Gap 10 mmol/L 06/14/18 06:00 BUN 37 mg/dL (9-20) H 06/14/18 06:00 Creatinine 1.74 mg/dL (0.66-1.25) H 06/14/18 06:00 Est GFR (CKD-EPI)AfAm 46 (>60 ml/min/1.73 sqM) 06/14/18 06:00 Est GFR (CKD-EPI)NonAf 39 (>60 ml/min/1.73 sqM) 06/14/18 06:00 Glucose 75 mg/dL (74-99) 06/14/18 06:00 POC Glucose (mg/dL) 75 mg/dL (75-99) 06/10/18 05:31 POC Glu Roll Cutting Operator TOM [employer] Velvet 06/10/18 05:31 Plasma Lactic Acid Paddy 2.0 mmol/L (0.7-2.0) 06/10/18 05:43 Uric Acid 4.8 mg/dL (3.5-8.5) 06/12/18 10:23 Calcium 8.3 mg/dL (8.4-10.2) L 06/14/18 06:00 Magnesium 2.0 mg/dL (1.6-2.3) 06/14/18 06:00 Iron 18 ug/dL (65-175) L 06/13/18 04:20 TIBC 203 ug/dL (228-460) L 06/13/18 04:20 Iron Saturation 8.87 (15.00-50.00) L 06/13/18 04:20 Ferritin 1292.7 ng/mL (22.0-322.0) H 06/13/18 04:20 Total Bilirubin 4.3 mg/dL (0.2-1.3) H 06/14/18 06:00 AST 54 U/L (17-59) 06/14/18 06:00 ALT 43 U/L (21-72) 06/14/18 06:00 Alkaline Phosphatase 177 U/L (38-126) H 06/14/18 06:00 Ammonia 10 umol/L (<30) 06/14/18 06:00 Total Protein 4.5 g/dL (6.3-8.2) L 06/14/18 06:00 Albumin 2.3 g/dL (3.5-5.0) L 06/14/18 06:00 Amylase 108 U/L (30-110) 06/14/18 06:00 Lipase 719 U/L (23-300) H 06/14/18 06:00 CA 19-9 Antigen 140.0 U/mL (0.0-34.9) H 06/14/18 06:00 Urine Color Yellow 06/08/18 22:40 Urine Appearance Clear (Clear) 06/08/18 22:40 Urine pH 6.0 (5.0-8.0) 06/08/18 22:40 Ur Specific [place] >1.050 (1.001-1.035) H 06/08/18 22:40 Urine Protein 1+ (Negative) H 06/08/18 22:40 Urine Glucose (UA) Negative (Negative) 06/08/18 22:40 Urine Ketones Negative (Negative) 06/08/18 22:40 Urine Blood Negative (Negative) 06/08/18 22:40 Urine Nitrite Negative (Negative) 06/08/18 22:40 Urine Bilirubin Negative (Negative) 06/08/18 22:40 Urine Urobilinogen <2.0 mg/dL (<2.0) 06/08/18 22:40 Ur Leukocyte Esterase Negative (Negative) 06/08/18 22:40 Urine RBC 1 /hpf (0-5) 06/08/18 22:40 Urine WBC 3 /hpf (0-5) 06/08/18 22:40 Urine Bacteria Rare /hpf (None) H 06/08/18 22:40 Urine Mucus Many /hpf (None) H 06/08/18 22:40 Microbiology 06/08/18 15:40 Blood Blood Culture - Final No Growth after 144 hours Assessment and Plan (1) Acute pancreatitis Current Visit: Yes Status: Acute Code(s): K85.90 - ACUTE PANCREATITIS WITHOUT NECROSIS OR INFECTION, UNSP SNOMED Code(s): 623277997 (2) Pancreatic cancer Current Visit: Yes Status: Acute Code(s): C25.9 - MALIGNANT NEOPLASM OF PANCREAS, UNSPECIFIED SNOMED Code(s): 497637669 (3) Leukocytosis Narrative/Plan: 60-year-old male who has a history of pancreatic cancer was recently rehospitalized at which point in time he had a left lower lobe infiltration. He has completed his course of oral antibiotic therapy but is developed increasing nausea and emesis and progressive abdominal pain. Upon presentation to emergency center the patient has evidence of pancreatitis with hydration as her starting to show some improvement. Patient continues feeling very poorly. The patient did undergo a computed tomography scan fortunately reveals evidence of resolution of his pneumonia. However does appear that his underlying malignancy has progressed with new liver masses and evidence of carcinomatosis of the omentum. And development of ascites. This information is related to the patient and the . The oncology nurse practitioner has also been updated. At this time there does not appear to be an underlying infection but does have leukocytosis and constantly is monitored closely. But without evidence of phlegmon of the pancreas there is no indication for antibiotic therapy at this point in time. 06/09/2018 discussion occurred with the patient and the . Regretfully Eliquis was given today which will likely delay the therapeutic paracentesis. Which will also like to be a diagnostic for cytology. Pain control as per the oncology service. At this time remains without evidence of significant infection continue to monitor without antimicrobial therapy. No evidence of any phlegmon or pancreatic pseudocyst. Leukocytosis is multifactorial. 06/10/2018 the patient's leukocytosis is now improved to 12 today. He did have an event with what appeared to be some excessive narcotic effect from the doses of Dilaudid for be given because of his significant pain. The dosing was increased significantly yesterday. He is now on a more scheduled smaller dose. Ultrasound was performed in the peritoneal fluid is too loculated for a peritoneal tap. I discussed the case with gastroenterology and will advance his diet as does appear that his pancreatitis symptomatically is improving. With lack of fever, improving leukocytosis does not appear to have underlying infection. However the total bilirubin did increase and will monitored to assure does not continue to climb. If so within need consideration of antibiotics because of his history of recurrent cholangitis. Patient's is working diligently for him to get discharged home so she can take him for a second opinion possibly for further chemotherapy. 06/11/2018 patient continues to feel poorly. His shortness of breath is waxing and waning it is now considerably worse after his prostate exam which required him to bend which resulted in some compression to his diaphragms resulting in some residual and ongoing shortness of breath. He has had improvement with the shortness of breath and pains with Dilaudid and another doses given at this ti me. The patient has had difficulty with increased creatinine and consequently is receiving some fluids trying to improve his renal function. It is explained to the patient's that Lasix will help remove some fluid however these have improved intravascular volume for diuretic is given so no further damage is done. Patient's oxygen saturation is 99% on 2 L, oxygen has helped relieve his shortn ess of breath some. The patient is being closely monitored by his oncologist and the primary staff. There was some difficulties with his [place] morning is now been readjusted and he is much more comfortable. Laboratory count is waxing and waning in today is again increased to 23.4 it was 12.2. The creatinine did go from 0.79-1.87. Total bilirubin decreased to 1.9 and lipase was down to 747. His chest x-ray showed evidence of the left pleural effusion without evidence of new pneumonic infiltration. An abdominal x-ray failed to reveal a small bowel obstruction. This information is related and will continue to monitor for any concerns to underlying infection. 06/12/2018 better with lasix less SOB but constipated if now relief consider Lactulose 06/13/2018 the patient's constipation has now resolved with the enema of last night. Illnesses allowing some improvement discomfort he still has increasing ascites and abdominal distention. Ultrasound performed today shows evidence of the 4 quadrant ascites. The patient's has talked to oncology and has agreed to the no CODE STATUS which is absolutely appropriate at this time. The patient does have worsening of his pulmonary status. He is more short of breath, there is atelectasis and likely early infiltrate on the chest x-ray. We'll initiate meropenem which will give coverage for pneumonia. Patient's bilirubin also markedly increased and constantly there is also recurrent concerned to infection related to biliary tract. If the patient's declining status course of antibiotic therapy will be attempted. The patient's understands today the advanced nature of the patient's disease. Patient is having very rapid decline of his status. 06/14/2018 patient's status was continuing to decline. The patient's is calling the children to come to town. She understands that is progressive and severe pain is directly related to his disease progression. He is not doing real well with some of the pain control. Transition to hospice would likely allow much more comfortable process that could actually be administered in the home setting. It appears that decision be made in the next several hours as to overall plan. For now I aggressive therapy continues continue intravenous antibiotic therapy for concerns to pneumonia and with a marked increased bilirubin recurrent urinary sepsis. Current Visit: Yes Status: Acute Code(s): D72.829 - ELEVATED WHITE BLOOD CELL COUNT, UNSPECIFIED SNOMED Code(s): 480921880
[2018-06-15] MEDS: IPRATROPIUM-ALBUTEROL 3 ML NEB INHALATION PRN (00:30)
[2018-06-15] MEDS: HYDROmorphone 1 MG/ML 1 ML SYRINGE IVP PRN ×3 (03:15→15:01)
[2018-06-15] MEDS: LEVOTHYROXINE 100 MCG TAB PO SCH (06:18)
[2018-06-15 06:57] LABS: Albumin 2.2 g/dL (3.5-5.0); Calcium 8.4 mg/dL (8.4-10.2); Total Bilirubin 5.1 mg/dL (0.2-1.3); Total Protein 4.5 g/dL (6.3-8.2)
[2018-06-15 07:12] LABS: Anisocytosis Slight; Basophils # (A) 0.1 k/uL (0-0.2); Basophils % (A) 0 %; Eosinophils # (A) 0.1 k/uL (0-0.7); Eosinophils % (A) 1 %; HCT 26.4 % (39.0-53.0); HGB 8.1 gm/dL (13.0-17.5); Hypochromasia Marked; Lymphocytes # (A) 0.3 k/uL (1.0-4.8); Lymphocytes % (A) 2 %; MCHC 30.8 g/dL (31.0-37.0); MCV 103.8 fL (80.0-100.0); Macrocytosis Moderate; Mean Platelet Volume 6.8; Monocytes % (A) 6 %; Neutrophils # (A) 16.2 k/uL (1.3-7.7); Neutrophils % (A) 89 %; Platelet Count 395 k/uL (150-450); RBC 2.54 m/uL (4.30-5.90); RDW 18.2 % (11.5-15.5); WBC 18.2 k/uL (3.8-10.6)
[2018-06-15 09:18] VITALS: PULSE 101; RESP 18; TEMP 98.2
[2018-06-15] MEDS: FLUTICASONE 50MCG/SPRAY NASAL 16GM EA NOSTRIL SCH (09:18)
[2018-06-15] MEDS: DOCUSATE 100 MG CAP PO SCH (09:18)
[2018-06-15] MEDS: APIXABAN 5 MG TAB PO SCH (09:18)
[2018-06-15] MEDS: TAMSULOSIN 0.4 MG CAP.ER.24H PO SCH (09:19)
[2018-06-15] MEDS: PSYLLIUM HUSK 100% 6 GM PACKET PO SCH (09:19)
[2018-06-15] MEDS: URSODIOL 300 MG CAP PO SCH (09:19)
[2018-06-15] MEDS: SODIUM FERRIC GLUCONAT-SUCROSE 125 MG in SODIUM CHLORIDE 0.9% 100 ML IVPB SCH (09:19)
[2018-06-15] MEDS: MEGESTROL 40 MG TAB PO SCH ×2 (09:19→13:17)
[2018-06-15] MEDS: SODIUM BICARBONATE TAB 650 MG TAB PO SCH ×2 (09:19→13:17)
--- NOTE | 2018-06-15 09:25 | P.PN ---
Subjective Patient is seen in follow-up for acute kidney injury. Creatinine peaked at 2.01 and was down to 1.74 as of yesterday - 2.2 today. Baseline creatinine near 1. He has a Molina catheter for urinary retention. Urine output has been decreasing. Oral intake is poor. Currently being treated for acute pancreatitis. No chest pain or shortness of breath. Does have a cough. Patient has history of pancreatic cancer which appears to have progressed. Vital signs are stable. General: The patient appeared well nourished and normally developed. HEENT: Head exam is unremarkable. Neck is without jugular venous distension. LUNGS: Lungs are clear to auscultation and percussion. Breath sounds decreased. HEART: Rate and Rhythm are regular. First and second heart sounds normal. No murmurs, rubs or gallops. ABDOMEN: Abdominal exam reveals normal bowel sounds. Non-tender and non- distended. No evidence of peritonitis. EXTREMITITES: Trace edema. Objective - Vital Signs Vital signs: Vital Signs Temp 98.2 F 06/15/18 08:00 Pulse 101 H 06/15/18 08:00 Resp 18 06/15/18 08:00 BP 102/69 06/15/18 08:00 Pulse Ox 96 06/15/18 04:00 Intake & Output 06/14/18 06/15/18 06/15/18 18:59 06:59 18:59 Intake Total 350 120 Output Total 653 Balance 350 -653 120 Weight 94.7 kg Intake: IV 30 Invasive Line 2 30 Oral 320 120 Output: Urine 650 Stool 3 Other: Voiding Method Indwelling Catheter Indwelling Catheter - Labs CBC & Chem 7: 06/15/18 06:14 06/15/18 06:14 Labs: Abnormal Lab Results - Last 24 Hours (Table) 06/14/18 06/15/18 06/15/18 Range/Units 06:00 06:14 06:14 WBC 18.2 H (3.8-10.6) k/uL RBC 2.54 L (4.30-5.90) m/uL Hgb 8.1 L (13.0-17.5) gm/dL Hct 26.4 L (39.0-53.0) % MCV 103.8 H (80.0-100.0) fL MCHC 30.8 L (31.0-37.0) g/dL RDW 18.2 H (11.5-15.5) % Neutrophils # 16.2 H (1.3-7.7) k/uL Lymphocytes # 0.3 L (1.0-4.8) k/uL Sodium 133 L (137-145) mmol/L BUN 43 H (9-20) mg/dL Creatinine 2.21 H (0.66-1.25) mg/dL Glucose 110 H (74-99) mg/dL Total Bilirubin 5.1 H (0.2-1.3) mg/dL Alkaline Phosphatase 174 H (38-126) U/L Total Protein 4.5 L (6.3-8.2) g/dL Albumin 2.2 L (3.5-5.0) g/dL CA 19-9 Antigen 140.0 H (0.0-34.9) U/mL Microbiology - Last 24 Hours (Table) 06/08/18 15:40 Blood Culture - Final Blood No Growth after 144 hours Assessment and Plan Plan: Assessment: 1. Acute kidney injury secondary to ATN secondary to contrast-induced nephropathy, nonsteroidals. Also component of urinary retention. Baseline creatinine near 1. Creatinine peaked at 2.01 this admission and did come down to 1.74 as of yesterday - 2.2 today. No hydronephrosis noted on kidney ultrasound. Kidneys are relatively small in size. 2. Urinary retention status post Molina catheter placement. 3. Hyponatremia secondary to acute kidney injury. Stable. 4. Metastatic pancreatic cancer. Noted to have liver and omental and hepatic metastasis. Patient was receiving chemotherapy as an outpatient. Last dose on 05/18/2018. 5. Metabolic acidosis secondary to acute kidney injury. Maintained on oral sodium bicarbonate. Better. 6. Volume overload. Albumin level noted to be low. Gradually improving. 7. Acute pancreatitis. 8. Hypokalemia secondary to diuresis. Magnesium normal. Better. 9. Anemia. Severe iron deficiency noted. Plan: Hold Lasix. IV albumin 25 g 2 doses today. Monitor vancomycin levels - target level <20. IV iron x 3 doses - second dose today. Overall prognosis poor. Meeting with hospice today.
[2018-06-15] MEDS: FUROSEMIDE 10 MG/ML 2 ML VIAL IV SCH (09:27)
[2018-06-15] MEDS: HYDROmorphone 0.5 MG/0.5 ML SYRINGE IVP PRN ×2 (09:36→13:13)
[2018-06-15] MEDS: LORazepam 2 MG/ML INJ IV PRN (09:37)
[2018-06-15] MEDS: MEROPENEM 1 GM in SODIUM CHLORIDE 0.9% 100 ML IVPB SCH (10:20)
[2018-06-15 10:33] VITALS: BMI 33.7
[2018-06-15] MEDS: ALBUMIN HUMAN 25% 50 ML in EMPTY BAG 1 BAG IVPB SCH ×2 (11:48→13:00)
[2018-06-15 15:23] VITALS: BP 107/67
[2018-06-15] MEDS ORDERED: MEROPENEM 500 MG in SODIUM CHLORIDE 0.9% 50 ML IVPB SCH (21:00)
[2018-06-15] MEDS ORDERED: ALBUMIN HUMAN 25% 50 ML in EMPTY BAG 1 BAG IVPB SCH (21:00)
--- NOTE | 2018-06-16 01:05 | DS ---
DISCHARGE SUMMARY DATE OF ADMISSION: June 08, 2018 DATE OF DISCHARGE: June 15, 2018 FINAL DIAGNOSES: 1. Advancing worsening ampulla of Vater adenocarcinoma with metastatic systems liver omentum with rapidly declining function. 2. Chronic bilateral pulmonary embolism for which patient chronically was on Eliquis. 3. Acute pancreatitis, POA. 4. Moderate protein-calorie malnutrition from decreased oral intake along with hypoalbuminemia. 5. Hypothyroidism. 6. Acute renal failure from acute tubular necrosis, combination of contrast nephropathy and being on nonsteroidals. 7. Acute metabolic encephalopathy from pain medications. 8. Opioid induced constipation, and from decreased mobility. 9. Possible pneumonia. 10.Obesity; BMI 34. CONSULTATION: Dr. Patrick Spivey from Infectious Disease; Dr. Carney from Nephrology, Dr. Lanier from Urology. HOSPITAL COURSE: This patient was admitted by Internal Medicine, Dr. Evans. The patient has known malignancy as above that has been progressive. The patient continued to deteriorate. I was asked to take over the case 2 days ago. I had a couple of lengthy discussion with the patient's and Dr. Oliver and because of poor prognosis and overall worsening condition, it was decided to proceed with hospice care. I discussed again with the in detail today and all the medications and discharge planning. Also spoke with the hospice team. The patient otherwise is comfortable. Transport is being arranged. Also spoke to the social work administrator. Discussion and discharge planning more than 35 minutes. DISCHARGE MEDICATIONS: 1. Ursodiol 300 mg p.o. b.i.d. 2. Synthroid 100 mcg p.o. daily. 3. Colace 100 mg p.o. b.i.d. 4. Compazine 10 mg p.o. q.6 p.r.n. 5. DuoNeb q.4 p.r.n. 6. Ativan 1 mg q.4 p.r.n. 7. Lactulose 15 g p.o. t.i.d. p.r.n. 8. Milk of magnesia 200 mg p.o. q.i.d. p.r.n. 9. Melatonin 3 mg q.h.s. 10.Metamucil 6 grams p.o. b.i.d. 11.Flomax 0.4 mg p.o. daily. DISPOSITION: Home with [facility]. Dr. Shelby Styles is the primary care physician. Copy to Dr. Styles. MMODL / IJN: [id number] /
== END 2018-06-15 18:25 | disposition hospice, home (50) | DRG 435 ==
LOC: EC 23:52 → 4SSUR 06-08 04:59 → 3SCARD 06-10 08:30
PROVIDERS: ADMIT Hospitalist; ATTEND Hospitalist
DX: C24.1 Malignant neoplasm of ampulla of Vater (principal); K85.90 Acute pancreatitis without necrosis or infection, unspecified; G92 Toxic encephalopathy; N17.0 Acute kidney failure with tubular necrosis; J96.01 Acute respiratory failure with hypoxia; J18.9 Pneumonia, unspecified organism; C78.6 Secondary malignant neoplasm of retroperitoneum and peritoneum; C78.7 Secondary malignant neoplasm of liver and intrahepatic bile duct; E44.0 Moderate protein-calorie malnutrition; E87.1 Hypo-osmolality and hyponatremia; E87.2 Acidosis; J90 Pleural effusion, not elsewhere classified; J98.11 Atelectasis; R18.8 Other ascites; I27.82 Chronic pulmonary embolism; D63.8 Anemia in other chronic diseases classified elsewhere; D72.819 Decreased white blood cell count, unspecified; E03.9 Hypothyroidism, unspecified; E61.1 Iron deficiency; E66.9 Obesity, unspecified; E87.6 Hypokalemia; E87.70 Fluid overload, unspecified; K59.03 Drug induced constipation; T40.2X5A Adverse effect of other opioids, initial encounter; K21.9 Gastro-esophageal reflux disease without esophagitis; N14.1 Nephropathy induced by other drugs, medicaments and biological substances; N40.1 Benign prostatic hyperplasia with lower urinary tract symptoms; R33.8 Other retention of urine; T50.2X5A Adverse effect of carbonic-anhydrase inhibitors, benzothiadiazides and other diuretics, initial encounter; T50.8X5A Adverse effect of diagnostic agents, initial encounter; Z51.5 Encounter for palliative care; Z66 Do not resuscitate; Z68.34 Body mass index [BMI] 34.0-34.9, adult; Z79.01 Long term (current) use of anticoagulants; Z79.890 Hormone replacement therapy; Z79.899 Other long term (current) drug therapy; Z80.3 Family history of malignant neoplasm of breast; Z80.52 Family history of malignant neoplasm of bladder; Z85.47 Personal history of malignant neoplasm of testis; Z92.21 Personal history of antineoplastic chemotherapy; Z79.51 Long term (current) use of inhaled steroids; Z88.5 Allergy status to narcotic agent; G89.3 Neoplasm related pain (acute) (chronic)
CPT/HCPCS: 36415; 70450; 71045; 71260; 74018; 74177; 76705; 76770; 80048; 80053; 81001; 82140; 82150; 82728; 83540; 83550; 83605; 83690; 83735; 84550; 85025; 85027; 85610; 86301; 87040; 93005; 94640; 94760; 96361; 96374; 96375; 99285